=== PATIENT | female | born 1930 | race Caucasian/White ===

== ENCOUNTER 2016-12-16 21:22 | Emergency (ER) | payer OTHER, MEDICARE ==
--- NOTE | 2016-12-16 22:03 | PDOC ---
History of Present Illness - General Stated Complaint: RECTAL BLEED Time Seen by Provider: 12/16/16 21:45 History Source: Patient Exam Limitations: No Limitations - History of Present Illness Initial Comments: CHIEF COMPLAINT: 86 y/o afebrile female with PMH HTN, HLD, hypothyroidism, a- fib (on coumadin and amiodarone), vertigo, hemorrhoids c/o rectal bleeding today. HISTORY OF PRESENT ILLNESS: The patient states she had bleeding from her hemorrhoids yesterday. She called Dr. Caputo today who told her if they started bleeding again she should come to the ER. She states she had 2 bowel movements today during which she had rectal bleeding. She states this evening her bleeding was significant, filling the entire toilet bowl. She states her hemorrhoids have gotten worse. She denies dizziness, lethargy, palpitations, CP , SOB, abd pain, melena. PCP is Jacque Richardson GI is Dr. Caputo Digital Program Manager is Dr. Jones Vital signs on arrival are REVIEW OF SYSTEMS: GENERAL/CONSTITUTIONAL: No fever/chills. No weakness. No weight change. HEAD, EYES, EARS, NOSE AND THROAT: No change in vision. No ear pain or discharge. No sore throat. CARDIOVASCULAR: No chest pain or shortness of breath. RESPIRATORY: No cough, wheezing, or hemoptysis. GASTROINTESTINAL: No abd pain, nausea, vomiting, diarrhea. +external hemorrhoids. +bleeding from hemorrhoids GENITOURINARY: No dysuria, frequency, or change in urination. MUSCULOSKELETAL: No joint or muscle swelling or pain. No neck or back pain. SKIN: No rash or easy bruising. NEUROLOGIC: No headache, vertigo, loss of consciousness, or loss of sensation. PHYSICAL EXAM: GENERAL: The patient is awake, alert, and fully oriented, in no acute distress. She is very well appearing, ambulatory, in NAD or obvious discomfort. HEAD: Normal with no signs of trauma. ENT: Pupils equal, round and reactive to light, extraocular movements intact, sclera anicteric, conjunctiva clear. Neck supple. LUNGS: Clear to auscultation bilaterally. Normal excursion. No respiratory distress or use of accessory muscles. CV: RRR, S1/S2, no MRG. Cap refill < 2 sec. ABDOMEN: Soft, non-distended, non-tender even to deep palpation, no hepatomegaly or splenomegaly, no masses. RECTUM: prolapsed internal hemorrhoids that are not strangulated. One of the hemorrhoids was able to be reduced. The others were unable to be reduced with manual pressure. No active bleeding. EXTREMITIES: Normal range of motion, no edema. NEUROLOGICAL: Normal speech, normal gait. CN II-XII grossly intact. PSYCH: Normal mood, normal affect. SKIN: Warm, dry, normal turgor, no rashes or lesions noted. Past History - Past Medical History Allergies/Adverse Reactions: Allergies Allergy/AdvReac Type Severity Reaction Status Date / Time erythromycin base Allergy Unknown abdominal Verified 10/31/16 20:51 [Erythromycin Base] pain Home Medications: Ambulatory Orders Atenolol [Tenormin -] 100 mg PO DAILY #0 tablet 11/01/13 Cholecalciferol (Vitamin D3) [Vitamin D -] 1 tab PO DAILY 05/24/14 Amlodipine Besylate [Norvasc -] 5 mg PO DAILY 03/12/15 Levothyroxine [Synthroid -] 50 mcg PO ASDIR 10/31/16 Warfarin Na [Coumadin -] 1 mg PO DAILY@1800 1 Days NS 11/10/16 Amiodarone HCl 200 mg PO 12/16/16 Latanoprost 0.005% Eye Drops [Xalatan 0.005% Eye Drops -] 1 drop HS 12/16/16 Losartan Potassium [Cozaar -] 50 mg PO DAILY 12/16/16 Simvastatin 20 mg PO 12/16/16 Anemia: No Asthma: No Cancer: No Cardiac Disorders: Yes (afib; CARDIAC CATH; SYNCOPE) COPD: No CHF: No GI Disorders: Yes (DIVERTICULITIS; SBO; ISCHEMIC COLITIS) Disorders: Yes (BLADDER INFECTION) HTN: Yes Hypercholesterolemia: Yes Suicide Attempt (Hx): No Thyroid Disease: Yes (HYPO) - Surgical History Abdominal Surgery: No Appendectomy: Yes Cardiac Surgery: Yes (pacemaker x2) Cholecystectomy: Yes Lung Surgery: No Neurologic Surgery: No - Immunization History Immunization Up to Date: Yes - Psycho/Social/Smoking Cessation Hx Anxiety: No Suicidal Ideation: No Smoking Status: No Smoking History: Never smoked Have you smoked in the past 12 months: No Number of Cigarettes Smoked Daily: 0 Hx Alcohol Use: No Drug/Substance Use Hx: No Substance Use Type: None Hx Substance Use Treatment: No ED Treatment Course - LABORATORY CBC & Chemistry Diagram: 12/16/16 22:31 12/16/16 22:31 Medical Decision Making - Medical Decision Making A/P: 86 y/o female with bleeding hemorrhoids. Bleeding has stopped. Plan is as follows: 1. Labs 2. Stool occult Labs normal Occult stool negative Manually reduced one of the prolapsed hemorrhoids. Will discharge the patient to home. She does not wish to have suppositories because she has no pain and she doesn't want to restart the bleeding. She states she will call Dr. Caputo tomorrow. Instructed her to return to the ER with any worsening or concerning symptoms. The patient verbalizes understanding of all instructions, has no further questions and is awaiting discharge. *DC/Admit/Observation/Transfer Diagnosis at time of Disposition: Bleeding hemorrhoids - Discharge Dispostion Disposition: HOME Condition at time of disposition: Good - Referrals Referrals: Jacque Richardson [Primary Care Provider] - Call tomorrow Minh Caputo MD [Staff Physician] - Call tomorrow - Patient Instructions Printed Discharge Instructions: DI for Hemorrhoids Additional Instructions: Discharge Instructions: -Continue taking your daily Miralax -Call Dr. Caputo and Dr. Richardson tomorrow -Return to the ER with any worsening or concerning symptoms.
--- NOTE | 2016-12-16 22:04 | PDOC ---
[id number]4GlNWAROHKTDLASWF4WMXCDyLYRCq7fWHPKtfeKVYOPrX RsZQAAeJwFwesKQDAUAO Ttlk4Lbob4BAE6ZAk0CQ0psyNjor/35Rn2/ tFa1AT8GundhEEmskCc7sJEaealx2Z4a2lgl6Pp9wpW910j5zRZ6hHJegNZLP0KZGOWAOSKUQEOg/ 256x5Y4iGYuKOOABF1MNa4D20jiNmmtiYCFLmp71zRWN/ YW2oDthTnoWEiNUM82gIJXXlVG1sDJM6JGRKXBEISILfh7PwbbeZuHALX6t3/ A8NEgWfIB2QR9FJcjgiEhOzA75rp7bmFpRBOuisaHMzUO3vEkHb978g2lkAlZhBAplBJ2UzHlvx6KdWJ KSzwEfIB4DkMDEcFW2IGzTSq1Qmr9UsyCCXoX8RwyAGTIRcU6MmHGwonZgR3QNXTwjDtjTx +zZF574Y/ 8VHkSvPv6YszC2zwsuTQ1vLwUhVts8M7pyDxab8POvSELgKyglmxLgIDNQ3ylQomKTBX9AwpdfFchbn0 DKPofBLGI4ftM83v9tX4CwsAZN7f2eX71QZbbu5sQq0iQAv4 /Lz3LzqdEwW2qbh1s9lfjDBeF6DHufM4s/ C3qfjQEXCNEpZAeylwvj3i2XgmTvWIdbtzvmpsuudRTJKkH+GQkKbgSQLkbBIsWJC293WUjjUpxk/ c1DVLW7X78j6CME7JIEvN97B9pfEW2Fch54WIYEj9d5u+JNqPHXR5U4lwldbWtwLMabs2FwWlIunkSh/ kIIdrEy1TW8JMvyXVjbZSlqxE2eu2foQc6vBng0Syxjfq819Zwb1iBcPE/W+ zKbPwjx95g42ayWNvfZD2e5LcYvY0KiU6W+ 6p9xTO6cm5BFuTw85icYcPHLAx9UWqireFQk6P3f4roQPj8FTqbR9/oQdXYAbt1o8+VQCni5l+ pQ2PMtrDFD9k4A7I2wLbYxJkl8byvB5JNDHAFH2WxpRrDaR8dLqdsrMatSJSvvrBLQnDZIBcENSMPOdE 8Dy5cytkGTypw +iUYm8MS0M8FfQ2IBRfAWUWVLqURlWcFvUQ 12/16/16 22:31 Medical Decision Making - Medical Decision Making 12/16/16 22:03 agree with care from JANETT Soler *DC/Admit/Observation/Transfer Diagnosis at time of Disposition: Bleeding hemorrhoids - Discharge Dispostion Disposition: HOME Condition at time of disposition: Good - Referrals Referrals: Jacque Richardson [Primary Care Provider] - Call tomorrow Minh Caputo MD [Staff Physician] - Call tomorrow - Patient Instructions Printed Discharge Instructions: DI for Hemorrhoids Additional Instructions: Discharge Instructions: -Continue taking your daily Miralax -Call Dr. Caputo and Dr. Richardson tomorrow -Return to the ER with any worsening or concerning symptoms.
[2016-12-16 22:41] VITALS: BP 113/79; PULSE 82; TEMP 97.2; BMI 25.0
[2016-12-16 22:48] LABS: BASOPHIL 0.8 % (0-2.0); EOSINOPHIL 2.9 % (0-4.5); MCH 32.1 pg (25.7-33.7); MCHC 33.3 g/dl (32.0-36.0); MEAN CELL VOLUME 96.1 fl (80-96); MEAN PLT VOLUME 8.8 fl (7.5-11.1); NEUTROPHILS 68.4 % (42.8-82.8); PLATELET COUNT 230 K/MM3 (134-434); RDW 15.2 % (11.6-15.6); WHITE BLOOD COUNT 5.7 K/mm3 (4.0-10.0)
[2016-12-16 23:09] LABS: INR 2.13 (0.82-1.09); PROTHROMBIN TIME (PATIENT) 23.8 SEC (9.98-11.88)
[2016-12-16 23:12] LABS: ALBUMIN 2.9 g/dl (3.4-5.0); BILIRUBIN,TOTAL 0.3 mg/dL (0.2-1.0); CREATININE 0.9 mg/dL (0.55-1.02); TOT PROT 7.3 g/dl (6.4-8.2)
== END 2016-12-17 00:24 | disposition home or self-care (01) ==
LOC: JER 21:22
DX: K64.2 Third degree hemorrhoids (principal); I10 Essential (primary) hypertension; E78.00 Pure hypercholesterolemia, unspecified; E03.9 Hypothyroidism, unspecified; I48.91 Unspecified atrial fibrillation; Z79.01 Long term (current) use of anticoagulants; Z95.0 Presence of cardiac pacemaker
CPT/HCPCS: 36415; 80053; 82272; 85025; 85610; 86850; 86900; 86901; 99281-25

== ENCOUNTER 2017-02-03 18:14 | Emergency (ER) | payer OTHER ==
--- NOTE | 2017-02-03 18:18 | PDOC ---
Rapid Medical Evaluation Time Seen by Provider: 02/03/17 18:18 Medical Evaluation: Allergies Allergy/AdvReac Type Severity Reaction Status Date / Time erythromycin base Allergy Unknown abdominal Verified 10/31/16 20:51 [Erythromycin Base] pain 02/03/17 18:18 86 year old female with history of hemorrhoids (sees Dr. Caputo) presenting with heavy bright red bleeding since 4pm. History of Afib on Coumadin. No dizziness, lightheadedness, shortness of breath. -V/s notable for HR 110 -EKG -Labs including CBC, comp, PT/INR, T&S -To Main ED for further evaluation
[2017-02-03 18:22] VITALS: BP 157/99; TEMP 97.8; BMI 25.2
[2017-02-03 19:26] LABS: BASOPHIL 1.3 % (0-2.0); EOSINOPHIL 5.2 % (0-4.5); MCH 32.4 pg (25.7-33.7); MCHC 33.9 g/dl (32.0-36.0); MEAN CELL VOLUME 95.8 fl (80-96); NEUTROPHILS 63.2 % (42.8-82.8); PLATELET COUNT 220 K/MM3 (134-434); RDW 14.7 % (11.6-15.6)
[2017-02-03 19:42] LABS: INR 2.16 (0.82-1.09); PROTHROMBIN TIME (PATIENT) 24.1 SEC (9.98-11.88)
[2017-02-03 19:45] LABS: ALBUMIN 3.2 g/dl (3.4-5.0); ANION GAP 8 (8-16); CALCIUM 9.1 mg/dL (8.5-10.1); CO2 27 mmol/L (21-32); CREATININE 0.9 mg/dL (0.55-1.02); GLUCOSE,RANDOM 110 mg/dL (74-106); SGOT/AST 20 U/L (15-37); SGPT/ALT 21 U/L (12-78)
[2017-02-03 19:49] LABS: ALK PHOS 124 U/L (45-117); BILIRUBIN,TOTAL 0.4 mg/dL (0.2-1.0); TOT PROT 8.3 g/dl (6.4-8.2); TROPONIN I < 0.02 ng/ml (0.00-0.05)
--- NOTE | 2017-02-03 20:20 | PDOC ---
History of Present Illness - General Chief Complaint: Rectal Bleed Stated Complaint: RECTAL BLEED Time Seen by Provider: 02/03/17 18:18 History Source: Patient Exam Limitations: No Limitations - History of Present Illness Travel History: No Initial Comments: 02/03/17 20:14 86yo Female patient w/ PmHx: Afib, Pacemaker, Hemorrhoids presents to ED c/o bleeding rectally r/t hemorrhoids. Patient states symptoms began around 4pm, she took 2 sitz bath with no relief of symptoms. Patient reports she currently takes Coumadin with alternating doses during the week. Patient denies CP, Abd pain, back pain, n/v/d, fever, cough, congestion, lightheadedness, dizziness, SOB, diff breathing, confusion, disorientation, rectal pain or any other complaints at this time. GI- Dr. Caputo. Timing/Duration: reports: constant Quality: reports: moderate Abdominal Pain Onset Location: denies: RUQ, LUQ, RLQ, LLQ, epigastric, periumbilical, suprapubic, generalized abdomen, flank, unknown, other Pain Radiation: denies: no radiation, RUQ, LUQ, RLQ, LLQ, epigastric, periumbilical, flank, groin, scapula, shoulder, chest, back, other Activities at Onset: reports: no specific activity Treatment Prior to Arrive: improves with: other (Sitz Bath) Aggravating Factors: worse with: None, Defecation, Eating, Emotional upset, Exertion, [place], Movement, Voiding, Change in position Alleviating Factors: worse with: None, Belching, Shallow Breathing, Defecation, Eating, Holding Breath, Passing Gas, Change in Position, Rest, Voiding, Vomiting Past History - Travel Traveled outside of the country in the last 30 days: No Close contact w/someone who was outside of country & ill: No - Past Medical History Allergies/Adverse Reactions: Allergies Allergy/AdvReac Type Severity Reaction Status Date / Time erythromycin base Allergy Unknown abdominal Verified 02/03/17 18:22 [Erythromycin Base] pain Home Medications: Ambulatory Orders Atenolol [Tenormin -] 100 mg PO DAILY #0 tablet 11/01/13 Cholecalciferol (Vitamin D3) [Vitamin D -] 1 tab PO DAILY 05/24/14 Amlodipine Besylate [Norvasc -] 5 mg PO DAILY 03/12/15 Levothyroxine [Synthroid -] 50 mcg PO ASDIR 10/31/16 Warfarin Na [Coumadin -] 1 mg PO DAILY@1800 1 Days NS 11/10/16 Amiodarone HCl 200 mg PO HS 12/16/16 Latanoprost 0.005% Eye Drops [Xalatan 0.005% Eye Drops -] 1 drop HS 12/16/16 Losartan Potassium [Cozaar -] 50 mg PO DAILY 12/16/16 Simvastatin 20 mg PO DAILY 12/16/16 Anemia: No Asthma: No Cancer: No Cardiac Disorders: Yes (afib; CARDIAC CATH; SYNCOPE) COPD: No CHF: No GI Disorders: Yes (DIVERTICULITIS; SBO; ISCHEMIC COLITIS) Disorders: Yes (BLADDER INFECTION) HTN: Yes Hypercholesterolemia: Yes Suicide Attempt (Hx): No Thyroid Disease: Yes (HYPO) - Surgical History Abdominal Surgery: No Appendectomy: Yes Cardiac Surgery: Yes (pacemaker x2) Cholecystectomy: Yes Lung Surgery: No Neurologic Surgery: No - Immunization History Immunization Up to Date: Yes - Psycho/Social/Smoking Cessation Hx Anxiety: No Suicidal Ideation: No Smoking Status: No Smoking History: Never smoked Have you smoked in the past 12 months: No Number of Cigarettes Smoked Daily: 0 Information on smoking cessation initiated: No Hx Alcohol Use: No Drug/Substance Use Hx: No Substance Use Type: None Hx Substance Use Treatment: No Abd/GI Specific PMHX - Complaint Specific PMHX Colitis: No Diverticulitis: No Gall Bladder Disease: No GERD: No Hepatitis: No Irritable Bowel Synd (IBS): No Pancreatitis: No GI Ulcer Disease: No Review of Systems - Review of Systems Able to Perform ROS?: Yes Is the patient limited Urdu proficient: No Constitutional: No: Chills, Fever, Malaise, Weakness HEENTM: No: Blurred Vision, Double Vision, Nose Bleeding Respiratory: No: Cough, Shortness of Breath, Stridor Cardiac (ROS): No: Chest Pain, Irregular Heart Rate, Lightheadedness, Palpitations, Syncope, Chest Tightness ABD/GI: Yes: Rectal Bleeding. No: Abd. Pain w/ defecation, Blood Streaked Bowels, Diarrhea, Nausea, Vomiting, Abdominal cramping, Tarry Stools : No: Dysuria, Flank Pain, Hematuria Musculoskeletal: No: Back Pain, Muscle Weakness Integumentary: No: Bruising, Erythema, Flushing, Pallor, Rash, Sweating Neurological: No: Headache, Numbness, Paresthesia, Seizure, Tremors, Weakness, Ataxia, Dizziness All Other Systems: Reviewed and Negative *Physical Exam - Vital Signs Last Vital Signs Temp Pulse Resp BP Pulse Ox 97.8 F 111 H 18 157/99 97 02/03/17 18:18 02/03/17 18:18 02/03/17 18:18 02/03/17 18:18 02/03/17 18:18 - Physical Exam General Appearance: Yes: Nourished, Appropriately Dressed. No: Apparent Distress, Mild Distress, Moderate Distress, Severe Distress Neck: positive: Trachea midline, Supple. negative: Stridor, Lymphadenopathy (R) , Lymphadenopathy (L) Respiratory/Chest: positive: Lungs Clear, Decreased Breath Sounds. negative: Crackles, Rales, Rhonchi, Stridor, Wheezing Cardiovascular: positive: Regular Rhythm, Regular Rate, Diastolic Murmur Gastrointestinal/Abdominal: positive: Normal Bowel Sounds, Soft. negative: Distended, Guarding, Rebound, Tenderness Rectal Exam: positive: normal rectal tone, hemorrhoids (Many external w/ internal present on examination. No thrombosed hemorrhoids noted.) Musculoskeletal: positive: Normal Inspection. negative: CVA Tenderness Extremity: positive: Normal Capillary Refill, Normal Inspection, Normal Range of Motion Integumentary: positive: Normal Color, Dry, Warm Neurologic: positive: delicatessen slicer II-XII NML intact, Fully Oriented, Alert, Normal Mood/ Affect, Normal Response, Motor Strength 5/5 ED Treatment Course - LABORATORY CBC & Chemistry Diagram: 02/03/17 18:49 02/03/17 18:49 - ADDITIONAL ORDERS Additional order review: Laboratory Results 02/03/17 02/03/17 18:49 18:49 INR 2.16 H Sodium 140 Potassium 4.3 Chloride 105 Carbon Dioxide 27 Anion Gap 8 BUN 18 Creatinine 0.9 Creat Clearance w eGFR 59.23 Random Glucose 110 H Calcium 9.1 Total Bilirubin 0.4 D AST 20 D ALT 21 D Alkaline Phosphatase 124 H D Creatine Kinase 43 Troponin I < 0.02 Total Protein 8.3 H Albumin 3.2 L 02/03/17 18:49 RBC 4.01 MCV 95.8 MCHC 33.9 RDW 14.7 MPV 9.0 Neutrophils % 63.2 Lymphocytes % 17.6 Monocytes % 12.7 H Eosinophils % 5.2 H Basophils % 1.3 Progress Note - Progress Note Progress Note: Re-evaluated patient. No bleeding at this time. INR- 2.16 Troponin <0.02 H&H- 13/38.4 Medical Decision Making - Medical Decision Making 02/03/17 20:25 CBC, INR, Type & Screen, CMP, Troponin, EKG. If all neg and no bleeding, d/c to home w/ f/u surgical referral. *DC/Admit/Observation/Transfer Diagnosis at time of Disposition: Hemorrhoids Qualifiers: Hemorrhoid type: unspecified Qualified Code(s): K64.9 - Unspecified hemorrhoids - Discharge Dispostion Disposition: HOME Condition at time of disposition: Improved Admit: No - Referrals Referrals: Jacque Richardson [Primary Care Provider] - Minh Caputo MD [Staff Physician] - - Patient Instructions Printed Discharge Instructions: DI for Hemorrhoids, DI for Rectal Bleeding Additional Instructions: Follow up with Dr. Caputo (GI) as discussed. Call to schedule appointment. You will need a surgical consult. Return if your symptoms worsen, or any concerns for further evaluation. Follow up as soon as possible. Print Language: PALESTINIAN
[2017-02-03 21:27] VITALS: PULSE 78
--- NOTE | 2017-02-04 10:05 | EKG ---
Test Reason : Blood Pressure : / mmHG Vent. Rate : 068 BPM Atrial Rate : 067 BPM P-R Int : 000 ms QRS Dur : 106 ms QT Int : 422 ms P-R-T Axes : 000 -21 048 degrees QTc Int : 448 ms POOR DATA QUALITY, INTERPRETATION MAY BE ADVERSELY AFFECTED atrial-paced complexes ABNORMAL ECG Confirmed by DEBORAH MCBRIDE MD ([id number]) on 02/04/2017 10:04:47 AM Referred By: Confirmed By:DEBORAH MCBRIDE MD
== END 2017-02-03 21:26 | disposition home or self-care (01) ==
LOC: JER 18:14
DX: K64.9 Unspecified hemorrhoids (principal); I25.10 Atherosclerotic heart disease of native coronary artery without angina pectoris; Z98.61 Coronary angioplasty status; I10 Essential (primary) hypertension; I48.91 Unspecified atrial fibrillation; Z79.01 Long term (current) use of anticoagulants; E03.9 Hypothyroidism, unspecified; E78.00 Pure hypercholesterolemia, unspecified; Z95.0 Presence of cardiac pacemaker
CPT/HCPCS: 36415; 80053; 82550; 84484; 85025; 85610; 86850; 86900; 86901; 93005; 93010; 99283-25

== ENCOUNTER 2017-03-16 05:16 | Day surgery (SDC) | payer OTHER, MEDICARE ==
--- NOTE | 2017-02-28 11:44 | HP ---
DATE OF ADMISSION: 03/16/2017 DATE OF DICTATION: 02/22/2017 DATE OF SURGERY: 03/16/2017 BRIEF HISTORY: This is an 86-year-old female who presented with a history of episodic rectal bleeding. Patient states she had bloody bowel movements. The blood at times would be very heavy (large amount of blood within the toilet bowl and sometimes on the bathroom floor). During these heavy episodes, patient has had no history of lightheadedness, syncope, chest pain, or shortness of breath. She was evaluated in the emergency room most recently with the very heavy episode and noted to have a normal hemoglobin according to the patient. She is also under the care of Dr. Caputo for the hemorrhoids, she has undergone a colonoscopy in the past 2-3 years; those results are not available to me. Patient denies a history of weight loss, no history of thinning stools. PAST MEDICAL HISTORY: Significant for peptic ulcer disease, heart disease, atrial fibrillation, hypertension, kidney disease, arthritic changes, eye disease, thyroid issues. PAST SURGICAL HISTORY: Appendectomy. Cholecystectomy. hysterectomy. Tonsillectomy. Heart and pacemaker. MEDICATION: Patient is on Coumadin, amiodarone, losartan, amlodipine, atenolol, simvastatin, Synthroid, and aspirin and Miralax. SOCIAL HISTORY: She denies tobacco and alcohol use. PHYSICAL EXAMINATION: Patient examined in the left lateral decubitus position. She has a hemorrhoid that prolapses at the 6:30 to 7:00 o'clock position. 12 o'clock is at the sacrum in the left lateral decubitus position. Internal examination is markedly decreased tone. She was guaiac negative. She has mild hemorrhoid disease throughout. IMPRESSION/PLAN: Episodic rectal bleeding based on the negative colonoscopy from 2-3 years ago, this most likely is secondary to her hemorrhoids. Patient states that when she wipes if she is not extremely careful, she causes bleeding. I suspect this most likely is the hemorrhoid at the 6:30 to 7:30 position. I will plan to do a limited hemorrhoidectomy at this level in hopes of controlling her bleeding. Due to the patient's medical issues and her age, I will plan to do this surgery while she is still anticoagulated; however, would like to see an INR between 1.7 and under 2. The patient understands we are doing a hemorrhoidectomy, it is extremely bloody surgery, and leaving her on Coumadin presents significant risks; however, her cardiac risk and other medical issues outweigh the surgical risk, and therefore she is willing to accept this and the possible complications. We will plan to proceed with exam under anesthesia, hemorrhoidectomy. Amanda RICHEY [id number] cc: Ruddy Marie D.O. cc: Jacque Richardson M.D.
[2017-03-15 08:43] VITALS: BMI 25.3
[2017-03-16 10:11] LABS: INR 1.52 (0.82-1.09); PROTHROMBIN TIME (PATIENT) 16.9 SEC (9.98-11.88)
[2017-03-16] MEDS ORDERED: ceFAZolin SODIUM 1 GM VIAL ONE (10:42)
[2017-03-16] MEDS ORDERED: ceFAZolin SODIUM 1 GM VIAL IVPB ONE (11:29)
[2017-03-16] MEDS ORDERED: LIDOCAINE 1%/EPI 1:100000 (50 ML MULTI DOSE VIAL) ONE (11:56)
[2017-03-16] MEDS ORDERED: LIDOCAINE 1%/EPI 1:100000 (50 ML MULTI DOSE VIAL) INF ONE ×2 (12:00)
[2017-03-16 14:38] VITALS: TEMP 98
[2017-03-16 16:47] VITALS: BP 130/76; PULSE 80
--- NOTE | 2017-03-17 13:29 | OP ---
DATE OF OPERATION: 03/16/2017 PREOPERATIVE DIAGNOSIS: Episodic rectal bleeding. POSTOPERATIVE DIAGNOSIS: Episodic rectal bleeding. PROCEDURE: Examination under anesthesia, anal dilatation, hemorrhoidectomy x2. SURGEON: Chris Epperson MD SENIOR BUSINESS PROCESS ANALYST: None. ANESTHESIA: Chantell Beal MD (MAC/1% lidocaine with epinephrine, approximately 15 mL). ESTIMATED BLOOD LOSS: Minimal. SPECIMEN: Hemorrhoids x2. Patient's preoperative comorbidities include severe aortic stenosis, coronary artery disease, hypertension, hypothyroidism, chronic anticoagulation. This is an 86-year-old female with episodic rectal bleeding. Due to her Coumadin and anticoagulation, the patient occasionally has a severe amount of bleeding; therefore, wished to have this addressed at this time. Patient identified and appropriately positioned on the operating room table. After undergoing IV sedation, the area prepped and draped in the usual sterile fashion with ChloraPrep; 1% lidocaine with epinephrine was used for local anesthesia, approximately 15 mL. This was done in the perianal area as well as intersphinctericly. The anus was then serially dilated up to approximately 3 fingerbreadths. Anoscope was placed. In the left anterior position was a prolapsed hemorrhoid that was very friable in appearance. Just next to this, going toward the 8 o'clock position, is a very friable-appearing hemorrhoid and one also at the 10. The prolapsed hemorrhoid was excised with the LigaSure device. Welds were placed prior to complete division. This was handed off as specimen as hemorrhoid. The other one at the 10 o'clock position was excised in a similar fashion. This was also handed off as specimen. The friable hemorrhoid at the 8 o'clock position was just cauterized and then oversewn. The anus was then serially irrigated. The operative field examined, noted to be hemostatic. Next, 4 x 4's placed. Patient tolerated the procedure well. At the conclusion of the case, sponge and needle counts were correct. ATTESTATION: A brief operative note handwritten on the preprinted form. [facility] will be queried prior to giving any narcotics. Amanda RICHEY [id number] cc: DO Murray Fisher MD [facility]
--- NOTE | 2017-03-18 17:06 | PATH ---
Surgical Pathology Report Patient Name: SHAUN KING [facility]. Rec. #: [id number] /Age/Gender: 1930 (Age: 86) / F Account: [id number] Location: [facility] SUR[facility]ICAL Taken: 03/16/2017 Received: 03/16/2017 Reported: 03/18/2017 Physicians: Chris Epperson Specimen(s) Received HEMORRHOIDS Clinical History Rectal bleeding, hemorrhoids Final Diagnosis HEMORRHOIDS, HEMORRHOIDECTOMY: ANORECTAL MUCOSA WITH VASCULAR CONGESTION AND ECTASIA CONSISTENT WITH HEMORRHOIDS. Electronically Signed Alberto Fox M.D. Gross Description Received in formalin labeled "hemorrhoids," are 2 pink-downing, irregular portions of soft tissue measuring 1.6 x 0.6 x 0.3 cm and 2.2 x 0.9 x 0.3 cm. The specimens are serially sectioned and entirely submitted in one cassette. /03/16/201703/16/2017
== END 2017-03-16 15:30 | disposition home or self-care (01) ==
LOC: JASU-SURG 05:16
PROVIDERS: ATTEND Surgery
PROC: 06BY0ZC Excision of Hemorrhoidal Plexus, Open Approach (ICD-10-PCS; principal; 2017-03-16 11:00)
DX: K64.8 Other hemorrhoids (principal); K62.5 Hemorrhage of anus and rectum; I35.0 Nonrheumatic aortic (valve) stenosis; I25.10 Atherosclerotic heart disease of native coronary artery without angina pectoris; I10 Essential (primary) hypertension; E03.9 Hypothyroidism, unspecified; Z79.01 Long term (current) use of anticoagulants
CPT/HCPCS: 36415; 85610; 88304-TC; 94760

== ENCOUNTER 2017-03-24 12:23 | Observation (INO) | payer OTHER, MEDICARE ==
--- NOTE | 2017-03-24 14:57 | PDOC ---
History of Present Illness - General Chief Complaint: Chest Pain Stated Complaint: CHEST PAIN Time Seen by Provider: 03/24/17 14:37 - History of Present Illness Initial Comments: 03/24/17 14:52 86-year-old female with a past medical history of atrial fibrillation, pacemaker , ASHD, pneumonia, prior cholecystectomy, recent gallstone ileus, recent hemorrhoid surgery, and a prior cardiac catheterization-patient does not know if she has stents She is on Coumadin at this time, and her INR on Tuesday was 2.6 Patient is complaining of an episode of upper midepigastric abdominal pain radiating into her chest on Tuesday night, associated with sweats, nausea, and vomiting, which resolved spontaneously She states yesterday at 7:30 PM, she had another episode of the same, again which resolved spontaneously, but she was not sure how long last night's episode lasted for She states in some ways the pain feels similar to her gallstone ileus pain, although it has resolved at this time, and she has not had any episodes since 7: 30 last night She denies any neck jaw or arm radiation She denies any palpitations She denies any recent intercurrent illnesses, cough, sputum, fevers or chills, or any other complaints She states she is asymptomatic at this time, and the remainder of the review of systems is negative Skate Shop Attendant is Dr. Loomis Primary care physician is Dr. Jaqueline Rader Past History - Past Medical History Allergies/Adverse Reactions: Allergies Allergy/AdvReac Type Severity Reaction Status Date / Time erythromycin base Allergy Unknown abdominal Verified 03/24/17 12:38 [Erythromycin Base] pain Home Medications: Ambulatory Orders Levothyroxine [Synthroid -] 50 mcg PO ASDIR 10/31/16 Warfarin Na [Coumadin -] 1 mg PO DAILY@1800 1 Days NS 11/10/16 Latanoprost 0.005% Eye Drops [Xalatan 0.005% Eye Drops -] 1 drop HS 12/16/16 Losartan Potassium [Cozaar -] 50 mg PO DAILY 12/16/16 Simvastatin 20 mg PO DAILY 12/16/16 Amlodipine Besylate 5 mg PO DAILY 03/15/17 Aspirin Coated [Ecotrin -] 81 mg PO DAILY 03/15/17 Atenolol [Tenormin -] 100 mg PO HS 03/15/17 Polyethylene Glycol 3350 [Miralax 119 gm Btl -] 17 gm PO DAILY 03/15/17 Ascorbic Acid [Vitamin C] 500 mg PO DAILY 03/24/17 Cholecalciferol (Vitamin D3) [Vitamin D -] 400 unit PO DAILY 03/24/17 Methenamine Hippurate [Hiprex [Nf] -] 2 gm PO BID 03/24/17 Ursodiol [Actigal -] 300 mg PO BID #60 cap 03/26/17 Anemia: No Asthma: No Cancer: No Cardiac Disorders: Yes (PACEMAKER X 1) COPD: No CHF: No GI Disorders: Yes (GALLSTONES EVEN THOUGH SHE HAD GALLBLADDER REMOVED) Disorders: Yes (BLADDER INFECTION) HTN: Yes Hypercholesterolemia: Yes Suicide Attempt (Hx): No Thyroid Disease: Yes (HYPO) - Surgical History Abdominal Surgery: (SLIT IN GALLBLADDDER DUCT, HEMMORHOID REMOVED) Appendectomy: Yes Cardiac Surgery: Yes (PACEMAKER X2) Cholecystectomy: Yes Lung Surgery: No Neurologic Surgery: No - Immunization History Immunization Up to Date: Yes - Psycho/Social/Smoking Cessation Hx Anxiety: No Suicidal Ideation: No Smoking Status: No Smoking History: Former smoker Have you smoked in the past 12 months: No Number of Cigarettes Smoked Daily: 0 Information on smoking cessation initiated: No Hx Alcohol Use: No Drug/Substance Use Hx: No Substance Use Type: None Hx Substance Use Treatment: No *Physical Exam - Vital Signs Last Vital Signs Temp Pulse Resp BP Pulse Ox 97.4 F L 73 18 128/76 98 03/24/17 12:25 03/24/17 12:25 03/24/17 12:25 03/24/17 12:25 03/24/17 13:30 - Physical Exam Comments: 03/24/17 14:55 Physical exam Last Vital Signs Temp Pulse Resp BP Pulse Ox 97.4 F L 73 18 128/76 98 03/24/17 12:25 03/24/17 12:25 03/24/17 12:25 03/24/17 12:25 03/24/17 13:30 GENERAL: The patient is awake, alert, and fully oriented, and in no apparent distress. HEAD: Normal with no signs of trauma. EYES: sclera anicteric, conjunctiva are normal. ENT: Moist mucous membranes. NECK: Normal range of motion, supple LUNGS: Breath sounds equal, clear to auscultation bilaterally. No wheezes, and no crackles. HEART: Regular rate and rhythm, normal S1 and S2 without murmur, rub or gallop. ABDOMEN: Soft, nontender, normoactive bowel sounds. No guarding, no rebound. No masses appreciated. Abdomen is soft and nontender at this time EXTREMITIES: Normal range of motion, no edema. No clubbing or cyanosis. No cords, erythema, or tenderness. NEUROLOGICAL: Cranial nerves II through XII grossly intact. Normal speech, normal gait. PSYCH: Normal mood, normal affect. SKIN: Warm, Dry, normal turgor, no rashes or lesions noted. ED Treatment Course - LABORATORY CBC & Chemistry Diagram: 03/26/17 05:40 03/26/17 05:40 - RADIOLOGY Radiology Studies Ordered: Category Date Time Status CHEST X-RAY PORTABLE* [RAD] Stat Radiology 03/24/17 14:51 Ordered Medical Decision Making - Medical Decision Making 03/24/17 14:56 EKG Normal sinus rhythm 70, left axis deviation -29 Normal AV and IV conduction time Normal QTC No pacemaker spikes are seen Otherwise normal EKG When compared to the EKG of 02/03/17 Atrial pacer spikes were seen on the prior EKG 03/24/17 16:39 First set of cardiac enzymes negative labwork reviewed 03/24/17 16:39 Chest x-ray-NAD 03/24/17 17:[address] Loomis cardiology-will see patient in consultation May be GI type of pain, but with patient's cardiac history, will need serial enzymes to rule out chest pain of cardiac etiology Dr. Rader paged 03/24/17 17:19 Case and all results discussed with Dr. Ariella Muniz-will place in observation Ct scan abd/pelv - s/p cholecystectomy. CT reveals persistently dilated intra- and extrahepatic bile ducts and pneumobilia. *DC/Admit/Observation/Transfer Diagnosis at time of Disposition: Chest pain Qualifiers: Chest pain type: unspecified Qualified Code(s): R07.9 - Chest pain, unspecified - Discharge Dispostion Condition at time of disposition: Fair Admit: Yes - Prescriptions
[2017-03-24 15:46] LABS: TROPONIN I < 0.02 ng/ml (0.00-0.05)
[2017-03-24 16:25] LABS: INR 2.53 (0.82-1.09); PROTHROMBIN TIME (PATIENT) 28.4 SEC (9.98-11.88)
[2017-03-24 17:09] LABS: ALBUMIN 3.2 g/dl (3.4-5.0); ALK PHOS 129 U/L (45-117); ANION GAP 8 (8-16); BILIRUBIN,TOTAL 0.5 mg/dL (0.2-1.0); CALCIUM 9.6 mg/dL (8.5-10.1); CO2 28 mmol/L (21-32); CREATININE 0.8 mg/dL (0.55-1.02); GLUCOSE,RANDOM 92 mg/dL (74-106); MAGNESIUM 2.3 mg/dL (1.8-2.4); SGOT/AST 24 U/L (15-37); SGPT/ALT 21 U/L (12-78); TOT PROT 7.6 g/dl (6.4-8.2)
[2017-03-24 17:12] LABS: MCHC 33.4 g/dl (32.0-36.0); MEAN CELL VOLUME 95.7 fl (80-96); MEAN PLT VOLUME 9.2 fl (7.5-11.1); PLATELET COUNT 200 K/MM3 (134-434); RDW 14.3 % (11.6-15.6); WHITE BLOOD COUNT 4.7 K/mm3 (4.0-10.0)
--- NOTE | 2017-03-24 19:02 | CON.CARD ---
Consult Consult Specialty:: Cardiology Referred by:: Jacque Richardson MD Reason for Consultation:: Chest pain - History of Present Illness Chief Complaint: Chest pain History of Present Illness: 86-year-old female history of 2 vesseal CAD, diastolic dysfunction, moderate aortic stenosis, hypertension, cardioinhibitory/carotid hypersensitivity s/p pacemaker, hyperlipidemia, paroxysmal A.fib on Coumadin [id number], s/p appy, cholecystectomy and hysterectomy, diverticulosis/itis, GERD presented with sharp chest and mid-epigastric pain, improved with belching and emesis. She denies dyspnea, near or true syncope, palpitations, orthopnea, PND or LE edema, feels hungry, wants to eat. - History Source History Provided By: Patient Limitations to Obtaining History: No Limitations - Past Medical History Cardio/Vascular: Yes: AFIB, HTN, Hyperlipdemia Gastrointestinal: Yes: Diverticulitis, Hemorrhoids Musculoskeletal: Yes: Chronic low back pain, Other (Spinal stenosis and C spine fracture.) Endocrine: Yes: Hypothyroidism Additional Medical History: Fibrocystic breast disease. Macular degeneration. Herpes Zoster 2008. Ischemic colitis and SBO 2012. Diverticulitis 02/21. C spine fracture. Spinal stenosis. 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 History of Recent Travel: No Home Medications - Allergies Allergies/Adverse Reactions: Allergies Allergy/AdvReac Type Severity Reaction Status Date / Time erythromycin base Allergy Unknown abdominal Verified 03/24/17 12:38 [Erythromycin Base] pain - Home Medications Home Medications: Ambulatory Orders Levothyroxine [Synthroid -] 50 mcg PO ASDIR 10/31/16 Warfarin Na [Coumadin -] 1 mg PO DAILY@1800 1 Days NS 11/10/16 Latanoprost 0.005% Eye Drops [Xalatan 0.005% Eye Drops -] 1 drop HS 12/16/16 Losartan Potassium [Cozaar -] 50 mg PO DAILY 12/16/16 Simvastatin 20 mg PO DAILY 12/16/16 Amlodipine Besylate 5 mg PO DAILY 03/15/17 Aspirin Coated [Ecotrin -] 81 mg PO DAILY 03/15/17 Atenolol [Tenormin -] 100 mg PO HS 03/15/17 Polyethylene Glycol 3350 [Miralax (For Daily Use) -] 17 gm PO DAILY 03/15/17 Ascorbic Acid [Vitamin C] 500 mg PO DAILY 03/24/17 Cholecalciferol (Vitamin D3) [Vitamin D3 -] 400 unit PO DAILY 03/24/17 Methenamine Hippurate [Hiprex [Nf] -] 2 gm PO BID 03/24/17 Family Disease History - Family Disease History Family Disease History: Heart Disease: Mother ( 75 H/o CHF and morbid obesity), Other: Father ( 76, H/O alcohol), Brother (colon adenoma) Review of Systems - Review of Systems Cardiovascular: reports: Chest Pain Gastrointestinal: reports: Indigestion Vital Signs: Vital Signs Temperature 97.6 F 03/24/17 17:08 Pulse Rate 66 03/24/17 17:08 Respiratory Rate 17 03/24/17 17:08 Blood Pressure 133/80 03/24/17 17:08 O2 Sat by Pulse Oximetry (%) 97 03/24/17 17:08 Constitutional: Yes: No Distress, Calm Neck: Yes: Supple Respiratory: Yes: Regular, CTA Bilaterally Gastrointestinal: Yes: Normal Bowel Sounds, Soft Cardiovascular: Yes: Regular Rate and Rhythm JVD: No Carotid Bruit: No Heart Sounds: Yes: S1, S2 Murmur: Yes: Systolic Murmur, Grade 2 Edema: No - Other Data Labs, Other Data: INR, PTT INR 2.53 (0.82-1.09) H D 03/24/17 15:00 NSR @ 70 LAD Imaging - Results Chest X-ray: Report Reviewed (NAD) Problem List - Problems (1) Chest pain Code(s): R07.9 - CHEST PAIN, UNSPECIFIED Qualifiers: Chest pain type: unspecified Qualified Code(s): R07.9 - Chest pain, unspecified (2) History of pacemaker Code(s): Z95.0 - PRESENCE OF CARDIAC PACEMAKER (3) Hyperlipidemia Code(s): E78.5 - HYPERLIPIDEMIA, UNSPECIFIED Qualifiers: Hyperlipidemia type: pure hypercholesterolemia Qualified Code(s): E78.00 - Pure hypercholesterolemia, unspecified; E78.0 - Pure hypercholesterolemia (4) Hypertension Code(s): I10 - ESSENTIAL (PRIMARY) HYPERTENSION Qualifiers: Hypertension type: essential hypertension Qualified Code(s): I10 - Essential (primary) hypertension (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 Atypical chest pain syndrome suspect GERD 2. H/o ERCP and sphincterotomy for choledocholithiasis 3. 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 Diastolic dysfunction with class 0-I NYHA classification LV failure, euvolemic 6. Moderate aortic stenosis 7. Paroxysmal atrial fibrillation currently in sinus rhythm with therapeutic INR 8. HTN/HCVD 9. Hyperlipidemia 10. Hypothyroidism PLAN: 1. Ruling out for VT, check TSH and lipoid panel, GI input 2. Continue losartan 50 qd, zocor 20 qhs, norvasc 5 qd, atenolol 100 qd, add Protonix 3. Coumadin per INR 4. Thank you for consultative opportunity
--- NOTE | 2017-03-24 21:32 | HP ---
Admitting History and Physical - Primary Care Physician PCP: Jacque Richardson S - Admission Chief Complaint: epigastric pain and vomiting History of Present Illness: 86-year-old female with a past medical history of atrial fibrillation, pacemaker , ASHD, pneumonia, prior cholecystectomy, recent gallstone ileus, recent hemorrhoid surgery, and a prior cardiac catheterizations She is on Coumadin at this time, and her INR on Tuesday was 2.6 Patient is complaining of an episode of upper mid-epigastric abdominal pain radiating into her chest started on Tuesday night, associated with sweats, nausea, and vomiting, which resolved spontaneously She states yesterday at 7:30 PM, she had another episode of the same, again which resolved spontaneously, but she was not sure how long last night's episode lasted for She states in some ways the pain feels similar to her gallstone ileus pain, although it has resolved at this time, and she has not had any episodes since 7: 30 last night She denies any neck jaw or arm radiation She denies any palpitations History Source: Patient, Medical Record Limitations to Obtaining History: No Limitations - Past Medical History Cardiovascular: Yes: AFIB, HTN, Hyperlipdemia Gastrointestinal: Yes: Diverticulitis, Hemorrhoids Heme/Onc: Yes: Other (Had bone marrow with Dr. Malik, ? 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 History of Recent Travel: No Home Medications - Allergies Allergies/Adverse Reactions: Allergies Allergy/AdvReac Type Severity Reaction Status Date / Time erythromycin base Allergy Unknown abdominal Verified 03/24/17 12:38 [Erythromycin Base] pain - Home Medications Home Medications: Ambulatory Orders Levothyroxine [Synthroid -] 50 mcg PO ASDIR 10/31/16 Warfarin Na [Coumadin -] 1 mg PO DAILY@1800 1 Days NS 11/10/16 Latanoprost 0.005% Eye Drops [Xalatan 0.005% Eye Drops -] 1 drop HS 12/16/16 Losartan Potassium [Cozaar -] 50 mg PO DAILY 12/16/16 Simvastatin 20 mg PO DAILY 12/16/16 Amlodipine Besylate 5 mg PO DAILY 03/15/17 Aspirin Coated [Ecotrin -] 81 mg PO DAILY 03/15/17 Atenolol [Tenormin -] 100 mg PO HS 03/15/17 Polyethylene Glycol 3350 [Miralax (For Daily Use) -] 17 gm PO DAILY 03/15/17 Ascorbic Acid [Vitamin C] 500 mg PO DAILY 03/24/17 Cholecalciferol (Vitamin D3) [Vitamin D3 -] 400 unit PO DAILY 03/24/17 Methenamine Hippurate [Hiprex [Nf] -] 2 gm PO BID 03/24/17 Family Disease History - Family Disease History Family Disease History: Heart Disease: Mother ( 75 H/o CHF and morbid obesity), Other: Father ( 76, H/O alcohol), Brother (colon adenoma) Review of Systems - Review of Systems Constitutional: denies: Chills, Fever, Lethargy Eyes: denies: Blind Spots, Blurred Vision, Double Vision HENT: denies: Difficult Swallowing, Ear Pain Neck: denies: Stiffness, Tenderness Cardiovascular: reports: Chest Pain. denies: Edema, Palpitations, Shortness of Breath Respiratory: denies: Cough, Orthopnea, SOB, SOB on Exertion Gastrointestinal: reports: Abdominal Pain, Diarrhea, Vomiting. denies: Bloating , Constipation, Melena, Nausea, Rectal Bleeding, Vomiting Blood Genitourinary: denies: Dysuria, Flank Pain Musculoskeletal: denies: Back Pain, Extremity Pain Integumentary: denies: Pruritis, Rash Neurological: denies: Change in LOC, Change in Speech, Confusion, Dizziness, Headache, Seizure, Syncope Hematology/Lymphatic: reports: Excessive Bleeding. denies: Easily Bruised Psychiatric: denies: Altered Sleep Pattern, Anxiety, Depression, Suicidal Physical Examination Vital Signs: Vital Signs Temperature 97.8 F 03/24/17 19:50 Pulse Rate 70 03/24/17 19:50 Respiratory Rate 18 03/24/17 19:50 Blood Pressure 134/77 03/24/17 19:50 O2 Sat by Pulse Oximetry (%) 98 03/24/17 19:50 Constitutional: Yes: No Distress, Calm Eyes: Yes: Conjunctiva Clear HENT: Yes: Atraumatic Neck: Yes: Supple Cardiovascular: Yes: Regular Rate and Rhythm, Murmur Respiratory: Yes: CTA Bilaterally Gastrointestinal: Yes: Soft. No: Distention, Tenderness Renal/: No: CVA Tenderness - Left, CVA Tenderness - Right, Lea Present, Hematuria Musculoskeletal: No: Joint Stiffness, Joint Swelling Extremities: No: Cold, Cool Edema: No Peripheral Pulses WNL: Yes Integumentary: No: Rash, Venous Stasis Changes Neurological: Yes: WNL, Alert, Oriented ...Motor Strength: WNL Psychiatric: Yes: WNL, Alert, Oriented. No: Agitated, Suicidal Ideation Imaging - Results Chest X-ray: Report Reviewed Other: Report Reviewed Assessment/Plan 86-year-old female with a past medical history of atrial fibrillation, pacemaker , ASHD, pneumonia, prior cholecystectomy, recent gallstone ileus, recent hemorrhoid surgery admitted with 2 episodes of upper midepigastric abdominal pain radiating into her chest with sweats, nausea, and vomiting ELICEO cardiac eval CE admit to telemetry h/o cholecystectomy and dilated biliary tree, GERD - will ask for GI eval falls pfx coumadin per inr d.w pt and staff
[2017-03-24] MEDS: PANTOPRAZOLE 40 MG TABLET (FP) PO SCH (22:29)
[2017-03-24] MEDS: ATENOLOL 50 MG TABLET (FP) PO SCH (22:29)
[2017-03-24] MEDS: ATORVASTATIN CA 20 MG TABLET (FP) PO SCH (22:29)
[2017-03-25 02:59] VITALS: BMI 25.5
[2017-03-25] MEDS: LEVOTHYROXINE NA 50 MCG TABLET (FP) PO SCH (06:08)
[2017-03-25 08:18] LABS: CHOLESTEROL 145 mg/dL (50-200); LDL CHOLESTEROL (ONLY SJRH) 58 mg/dL (5-100)
[2017-03-25 08:26] LABS: THYROID STIMULATING HORMONE 2.96 uIU/ml (0.358-3.74); TROPONIN I < 0.02 ng/ml (0.00-0.05)
--- NOTE | 2017-03-25 09:52 | PN ---
Progress Note, Physician History of Present Illness: No further sharp chest and mid-epigastric pain, improved with belching and emesis, reports diarrhea. She denies dyspnea, near or true syncope, palpitations , orthopnea, PND or LE edema. - Current Medication List Current Medications: Active Medications Amiodarone HCl (Cordarone -) 200 mg PO DAILY [facility] Amlodipine Besylate (Norvasc -) 5 mg PO DAILY [facility] Atenolol (Tenormin -) 100 mg PO DAILY [facility] Last Admin: 03/24/17 22:29 Dose: 100 mg Atorvastatin Calcium (Lipitor -) 20 mg PO HS [facility] Last Admin: 03/24/17 22:29 Dose: 20 mg Levothyroxine Sodium (Synthroid -) 50 mcg PO DAILY@0700 [facility] Last Admin: 03/25/17 06:08 Dose: 50 mcg Losartan Potassium (Cozaar -) 50 mg PO DAILY [facility] Pantoprazole Sodium (Protonix -) 40 mg PO DAILY [facility] Last Admin: 03/24/17 22:29 Dose: 40 mg Warfarin Sodium (Coumadin -) 1 mg PO DAILY@1800 [facility] - Objective Vital Signs: Vital Signs Temperature 97.6 F 03/25/17 06:00 Pulse Rate 68 03/25/17 06:00 Respiratory Rate 20 03/25/17 06:04 Blood Pressure 124/67 03/25/17 06:00 O2 Sat by Pulse Oximetry (%) 98 03/24/17 19:50 Constitutional: Yes: No Distress, Calm Neck: Yes: Supple Cardiovascular: Yes: Regular Rate and Rhythm, Murmur (2/6 SM) Respiratory: Yes: Regular, CTA Bilaterally Gastrointestinal: Yes: Normal Bowel Sounds, Soft Edema: No Labs: INR, PTT INR 2.53 (0.82-1.09) H D 03/24/17 15:00 - ....Imaging EKG: Report Reviewed (Tele: A-paced 60s) Problem List - Problems (1) Chest pain Code(s): R07.9 - CHEST PAIN, UNSPECIFIED Qualifiers: Chest pain type: unspecified Qualified Code(s): R07.9 - Chest pain, unspecified (2) History of pacemaker Code(s): Z95.0 - PRESENCE OF CARDIAC PACEMAKER (3) Hyperlipidemia Code(s): E78.5 - HYPERLIPIDEMIA, UNSPECIFIED Qualifiers: Hyperlipidemia type: pure hypercholesterolemia Qualified Code(s): E78.00 - Pure hypercholesterolemia, unspecified; E78.0 - Pure hypercholesterolemia (4) Hypertension Code(s): I10 - ESSENTIAL (PRIMARY) HYPERTENSION Qualifiers: Hypertension type: essential hypertension Qualified Code(s): I10 - Essential (primary) hypertension (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 Atypical chest pain syndrome suspect GERD 2. H/o ERCP and sphincterotomy for choledocholithiasis 3. 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 Diastolic dysfunction with class 0-I NYHA classification LV failure, euvolemic 6. Moderate aortic stenosis 7. Paroxysmal atrial fibrillation currently in sinus rhythm with therapeutic INR 8. HTN/HCVD 9. Hyperlipidemia 10. Hypothyroidism PLAN: 1. Ruled out for SC, GI input 2. Continue amio 200 qd, losartan 50 qd, zocor 20 qhs, norvasc 5 qd, atenolol 100 qd, Protonix 40 qd 3. Coumadin per INR
[2017-03-25] MEDS ORDERED: AMIODARONE HCL 200 MG TABLET (FP) PO SCH (10:00)
--- NOTE | 2017-03-25 10:08 | PN ---
Progress Note, Physician Chief Complaint: no CP/SOB; had diarrhea few times today seen by cardio and GI ELICEO negative - Current Medication List Current Medications: Active Medications Amiodarone HCl (Cordarone -) 200 mg PO DAILY [facility] Amlodipine Besylate (Norvasc -) 5 mg PO DAILY [facility] Atenolol (Tenormin -) 100 mg PO DAILY [facility] Last Admin: 03/24/17 22:29 Dose: 100 mg Atorvastatin Calcium (Lipitor -) 20 mg PO HS [facility] Last Admin: 03/24/17 22:29 Dose: 20 mg Levothyroxine Sodium (Synthroid -) 50 mcg PO DAILY@0700 [facility] Last Admin: 03/25/17 06:08 Dose: 50 mcg Losartan Potassium (Cozaar -) 50 mg PO DAILY [facility] Pantoprazole Sodium (Protonix -) 40 mg PO DAILY [facility] Last Admin: 03/24/17 22:29 Dose: 40 mg Warfarin Sodium (Coumadin -) 1 mg PO DAILY@1800 [facility] - Objective Vital Signs: Vital Signs Temperature 97.6 F 03/25/17 06:00 Pulse Rate 68 03/25/17 06:00 Respiratory Rate 20 03/25/17 06:04 Blood Pressure 124/67 03/25/17 06:00 O2 Sat by Pulse Oximetry (%) 98 03/24/17 19:50 Constitutional: Yes: No Distress, Calm Eyes: Yes: Conjunctiva Clear HENT: Yes: Atraumatic Neck: Yes: Supple Cardiovascular: Yes: Regular Rate and Rhythm Respiratory: Yes: CTA Bilaterally Gastrointestinal: Yes: Soft. No: Distention, Tenderness Genitourinary: No: CVA Tenderness - Left, CVA Tenderness - Right Musculoskeletal: No: Joint Stiffness, Joint Swelling Extremities: No: Cold, Cool Edema: No Peripheral Pulses WNL: Yes Integumentary: No: Rash, Venous Stasis Changes Neurological: Yes: WNL, Alert, Oriented ...Motor Strength: WNL Psychiatric: Yes: WNL, Alert, Oriented. No: Agitated, Suicidal Ideation Labs: INR, PTT INR 2.53 (0.82-1.09) H D 03/24/17 15:00 - ....Imaging Other: Report Reviewed Assessment/Plan 86-year-old female with a past medical history of atrial fibrillation, pacemaker , ASHD, pneumonia, prior cholecystectomy, recent gallstone ileus, recent hemorrhoid surgery admitted with 2 episodes of upper midepigastric abdominal pain radiating into her chest with sweats, nausea, and vomiting ELICEO negative most likely GI etiology; h/o cholecystectomy and dilated biliary tree, GERD - further w/u per gi falls pfx coumadin per inr d.w pt and staff
[2017-03-25] MEDS: PANTOPRAZOLE 40 MG TABLET (FP) PO SCH (10:16)
[2017-03-25] MEDS: amLODIPine BESYLATE 5 MG TABLET (FP) PO SCH (10:16)
[2017-03-25] MEDS: LOSARTAN POTASSIUM 50 MG TABLET (FP) PO SCH (10:16)
[2017-03-25] MEDS: ATENOLOL 50 MG TABLET (FP) PO SCH (10:16)
[2017-03-25 10:42] LABS: AMYLASE 44 U/L (25-115)
--- NOTE | 2017-03-25 11:12 | EKG ---
Test Reason : Blood Pressure : / mmHG Vent. Rate : 070 BPM Atrial Rate : 070 BPM P-R Int : 000 ms QRS Dur : 098 ms QT Int : 400 ms P-R-T Axes : 000 -29 054 degrees QTc Int : 432 ms atrial-paced complexes Confirmed by DEBORAH MCBRIDE MD ([id number]) on 03/25/2017 11:12:11 AM Referred By: Confirmed By:DEBORAH MCBRIDE MD
--- NOTE | 2017-03-25 14:59 | CON.GI ---
Consult Consult Specialty:: Gastroenterology Referred by:: Dr Richardson Reason for Consultation:: Chest pain and diaphoresis - History of Present Illness Chief Complaint: Chest pain and diaphoresis in two consecutive nights History of Present Illness: 86W describes severe lower retrosternal chest pain and diaphoresis that occurred on two consecutive nights ( 03/22, 03/23). She took some Tums that had minimal effect. The pain was reminiscent of the biliary colic that led to an ERCP in 10/29 when I removed a stone from the common bile duct. She is s/p cholecystectomy. CT reveals persistently dilated intra- and extrahepatic bile ducts and pneumobilia. The latter is attributable to her sphincterotomy.Her pain has completely resolved. She had a hemorrhoidectomy about a month ago. - History Source History Provided By: Patient, Medical Record Limitations to Obtaining History: No Limitations - Past Medical History Cardio/Vascular: Yes: AFIB, Aortic Stenosis (0.7cm), HTN, Hyperlipdemia, Mitral Insufficiency, Pulmonary Hypertension, Other (Episodes of vaso-depressive syncope, has PPM) Gastrointestinal: Yes: Diverticulitis (02/21), Diverticulosis, Hemorrhoids, Other (SBO in 10/26, ischemic colitis 10/26) Hepatobiliary: Yes: Cholelithiasis (s/pcholecsytectomy), Choledocholithiasis ( ERCP/sphincerotomy for CBD stone) Renal/: Yes: Neurogenic Bladder (had bladder stimulator placed) Infectious Disease: Yes: Herpes Zoster (2008) Musculoskeletal: Yes: Chronic low back pain, Osteoarthritis, Other (Spinal stenosis and C spine fracture.) Endocrine: Yes: Hypothyroidism Additional Medical History: Fibrocystic breast disease. Macular degeneration. Herpes Zoster 2008. Ischemic colitis and SBO 2012. Diverticulitis 02/21. C spine fracture. Spinal stenosis. 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 Place of : [facility] History of Recent Travel: No Home Medications - Allergies Allergies/Adverse Reactions: Allergies Allergy/AdvReac Type Severity Reaction Status Date / Time erythromycin base Allergy Unknown abdominal Verified 03/24/17 12:38 [Erythromycin Base] pain - Home Medications Home Medications: Ambulatory Orders Levothyroxine [Synthroid -] 50 mcg PO ASDIR 10/31/16 Warfarin Na [Coumadin -] 1 mg PO DAILY@1800 1 Days NS 11/10/16 Latanoprost 0.005% Eye Drops [Xalatan 0.005% Eye Drops -] 1 drop HS 12/16/16 Losartan Potassium [Cozaar -] 50 mg PO DAILY 12/16/16 Simvastatin 20 mg PO DAILY 12/16/16 Amlodipine Besylate 5 mg PO DAILY 03/15/17 Aspirin Coated [Ecotrin -] 81 mg PO DAILY 03/15/17 Atenolol [Tenormin -] 100 mg PO HS 03/15/17 Polyethylene Glycol 3350 [Miralax (For Daily Use) -] 17 gm PO DAILY 03/15/17 Ascorbic Acid [Vitamin C] 500 mg PO DAILY 03/24/17 Cholecalciferol (Vitamin D3) [Vitamin D3 -] 400 unit PO DAILY 03/24/17 Methenamine Hippurate [Hiprex [Nf] -] 2 gm PO BID 03/24/17 Family Disease History - Family Disease History Family Disease History: Diabetes: Brother (colon adenoma), Heart Disease: Father ( 76, H/O alcohol), Mother (,CKD), Brother, CA: Son (brainneoplasm), Other: Father, Brother Review of Systems - Review of Systems Constitutional: reports: Chills, Diaphoresis, Weakness Eyes: reports: No Symptoms HENT: reports: No Symptoms Neck: reports: No Symptoms Cardiovascular: reports: Chest Pain Respiratory: reports: No Symptoms Gastrointestinal: reports: Abdominal Pain, Nausea Neurological: reports: No Symptoms Physical Exam-GI Vital Signs: Vital Signs Temperature 97.5 F L 03/25/17 10:00 Pulse Rate 89 03/25/17 10:00 Respiratory Rate 20 03/25/17 10:00 Blood Pressure 134/77 03/25/17 10:00 O2 Sat by Pulse Oximetry (%) 98 03/24/17 19:50 Current Medications Generic Name Dose Route Start Last Admin Trade Name Freq PRN Reason Stop Dose Admin Amlodipine Besylate 5 mg 03/25/17 10:00 03/25/17 10:16 Norvasc - PO 5 mg DAILY [facility] Administration Atenolol 100 mg 03/24/17 20:00 03/25/17 10:16 Tenormin - PO 100 mg DAILY [facility] Administration Atorvastatin Calcium 20 mg 03/24/17 22:00 03/24/17 22:29 Lipitor - PO 20 mg HS [facility]INE Administration Levothyroxine Sodium 50 mcg 03/25/17 07:00 03/25/17 06:08 Synthroid - PO 50 mcg DAILY@0700 [facility] Administration Losartan Potassium 50 mg 03/25/17 10:00 03/25/17 10:16 Cozaar - PO 50 mg DAILY [facility] Administration Pantoprazole Sodium 40 mg 03/24/17 19:30 03/25/17 10:16 Protonix - PO 40 mg DAILY [facility] Administration Warfarin Sodium 1 mg 03/25/17 18:00 Coumadin - PO DAILY@1800 VAL[facility]INE CBC,CMP WBC 4.7 K/mm3 (4.0-10.0) 03/24/17 15:00 RBC 3.82 M/mm3 (3.60-5.2) 03/24/17 15:00 Hgb 12.2 GM/dL (10.7-15.3) 03/24/17 15:00 Hct 36.6 % (32.4-45.2) 03/24/17 15:00 MCV 95.7 fl (80-96) 03/24/17 15:00 MCHC 33.4 g/dl (32.0-36.0) 03/24/17 15:00 RDW 14.3 % (11.6-15.6) 03/24/17 15:00 Plt Count 200 K/MM3 (134-434) 03/24/17 15:00 MPV 9.2 fl (7.5-11.1) 03/24/17 15:00 Sodium 138 mmol/L (136-145) 03/24/17 15:12 Potassium 4.1 mmol/L (3.5-5.1) 03/24/17 15:12 Chloride 102 mmol/L (98-107) 03/24/17 15:12 Carbon Dioxide 28 mmol/L (21-32) 03/24/17 15:12 Anion Gap 8 (8-16) 03/24/17 15:12 BUN 15 mg/dL (7-18) 03/24/17 15:12 Creatinine Y 03/24/17 15:12 Creat Clearance w eGFR > 60 (>60) 03/24/17 15:12 Random Glucose 92 mg/dL (74-106) 03/24/17 15:12 Calcium 9.6 mg/dL (8.5-10.1) 03/24/17 15:12 Magnesium 2.3 mg/dL (1.8-2.4) 03/24/17 15:12 Total Bilirubin 0.5 mg/dL (0.2-1.0) 03/24/17 15:12 AST 24 U/L (15-37) D 03/24/17 15:12 ALT 21 U/L (12-78) D 03/24/17 15:12 Alkaline Phosphatase 129 U/L (45-117) H 03/24/17 15:12 Creatine Kinase 29 IU/L (26-192) 03/25/17 05:40 Troponin I < 0.02 ng/ml (0.00-0.05) 03/25/17 05:40 Total Protein 7.6 g/dl (6.4-8.2) 03/24/17 15:12 Albumin 3.2 g/dl (3.4-5.0) L 03/24/17 15:12 Triglycerides 74 mg/dL (35-160) 03/25/17 05:40 Cholesterol 145 mg/dL (50-200) 03/25/17 05:40 Total LDL Cholesterol 58 mg/dL (5-100) 03/25/17 05:40 HDL Cholesterol 84 mg/dL (40-60) H D 03/25/17 05:40 Total Amylase Cancelled 03/25/17 07:15 Lipase 141 U/L (73-393) 03/25/17 05:40 TSH 2.96 uIU/ml (0.358-3.74) D 03/25/17 05:40 Constitutional: Yes: No Distress, Calm Eyes: Yes: Conjunctiva Clear HENT: Yes: Atraumatic Neck: Yes: Trachea Midline Cardiovascular: Yes: Regular Rate and Rhythm (palpable left PPM), Murmur (2/6 ELIZABETH at base and apical areas) Respiratory: Yes: CTA Bilaterally Gastrointestinal Inspection: Yes: Scars (healed oblique RUQ, vertical RLQ abd Pfannensteil incisions) ...Auscultate: Yes: Normoactive Bowel Sounds ...Palpate: Yes: Soft, Other (nontender left inguinal hernia) ...Percussion: Yes: Tympanitic ...Rectal Exam: Yes: Deferred Labs: INR, PTT INR 2.53 (0.82-1.09) H D 03/24/17 15:00 Imaging - Results Cat Scan: Image Reviewed (dilated common bile, common hepatic and intrahepatic bile ducts) Problem List - Problems (1) History of hemorrhoidectomy Code(s): Z98.890 - OTHER SPECIFIED POSTPROCEDURAL STATES Assessment/Plan I believe that Chyna's severe pain and diaphoresis reflect biliary colic due to passage of another bile duct stone or sludge. Given the resolution of pain I believe that she has passed the stone. Unfortunately she cannot have an MRCP given her PPM. I will start Actigall to help her rid any residual stone or sludge. I have discussed the need to do another ERCP if her pain recurs or LFTs rise. If so antibiotics should be started after cultures. I have discussed ERCP in detail including informing Chyna of the potential for such complications as perforation, hemorrhage, general anesthesia and multiorgan failure associated with ERCP induced pancreatitis. She has consented should we need to proceed. Dr Rose will be covering this weekend.
[2017-03-25] MEDS ORDERED: WARFARIN NA 1 MG TABLET (FP) PO SCH (18:00)
[2017-03-25 20:02] LABS: INR 2.73 (0.82-1.09); PROTHROMBIN TIME (PATIENT) 30.7 SEC (9.98-11.88)
[2017-03-25] MEDS: URSODIOL 300 MG CAPSULE PO SCH (21:53)
[2017-03-25] MEDS: ATORVASTATIN CA 20 MG TABLET (FP) PO SCH (21:53)
[2017-03-26] MEDS: LEVOTHYROXINE NA 50 MCG TABLET (FP) PO SCH (06:12)
[2017-03-26 08:26] LABS: BASOPHIL 1.3 % (0-2.0); EOSINOPHIL 3.3 % (0-4.5); MCH 32.4 pg (25.7-33.7); MCHC 33.8 g/dl (32.0-36.0); MEAN CELL VOLUME 96.1 fl (80-96); NEUTROPHILS 61.2 % (42.8-82.8); PLATELET COUNT 193 K/MM3 (134-434); RDW 13.9 % (11.6-15.6); WHITE BLOOD COUNT 4.6 K/mm3 (4.0-10.0)
[2017-03-26 08:46] LABS: ALBUMIN 2.8 g/dl (3.4-5.0); ANION GAP 13 (8-16); BILIRUBIN,DIRECT 0.2 mg/dL (0.0-0.2); CALCIUM 8.8 mg/dL (8.5-10.1); CO2 26 mmol/L (21-32); GLUCOSE,RANDOM 79 mg/dL (74-106); SGOT/AST 18 U/L (15-37); SGPT/ALT 18 U/L (12-78)
[2017-03-26 08:50] LABS: INR 2.52 (0.82-1.09); PROTHROMBIN TIME (PATIENT) 28.2 SEC (9.98-11.88)
[2017-03-26 08:52] LABS: ALK PHOS 112 U/L (45-117); BILIRUBIN,TOTAL 0.5 mg/dL (0.2-1.0); CREATININE 0.8 mg/dL (0.55-1.02); TOT PROT 6.9 g/dl (6.4-8.2)
--- NOTE | 2017-03-26 09:39 | PN ---
Progress Note, Physician Chief Complaint: doing well wants to go home today no CP/SOB no N/V/C/D/ abdominal pain ate OK slept OK labs OK today consults reviewed and d/w pt - Current Medication List Current Medications: Active Medications Amlodipine Besylate (Norvasc -) [address] [facility] Last Admin: 03/25/17 10:16 Dose: 5 mg Atenolol (Tenormin -) [address] [facility] Last Admin: 03/25/17 10:16 Dose: 100 mg Atorvastatin Calcium (Lipitor -) [address] [facility] Last Admin: 03/25/17 21:53 Dose: 20 mg Levothyroxine Sodium (Synthroid -) 50 mcg PO DAILY@0700 [facility] Last Admin: 03/26/17 06:12 Dose: 50 mcg Losartan Potassium (Cozaar -) [address] [facility] Last Admin: 03/25/17 10:16 Dose: 50 mg Pantoprazole Sodium (Protonix -) [address] [facility] Last Admin: 03/25/17 10:16 Dose: 40 mg Ursodiol (Actigal -) [address] [facility] Last Admin: 03/25/17 21:53 Dose: 300 mg Warfarin Sodium (Coumadin -) 1 mg PO DAILY@1800 [facility] Last Admin: 03/25/17 21:53 Dose: 1 mg - Objective Vital Signs: Vital Signs Temperature 98.6 F 03/26/17 02:09 Pulse Rate 70 03/26/17 02:09 Respiratory Rate 19 03/26/17 02:09 Blood Pressure 148/77 03/26/17 02:09 O2 Sat by Pulse Oximetry (%) 97 03/26/17 05:00 Constitutional: Yes: No Distress, Calm Eyes: Yes: Conjunctiva Clear HENT: Yes: Atraumatic Neck: Yes: Supple Cardiovascular: Yes: Regular Rate and Rhythm Respiratory: Yes: CTA Bilaterally Gastrointestinal: Yes: Soft. No: Distention, Tenderness Musculoskeletal: No: Joint Stiffness, Joint Swelling Extremities: No: Cold, Cool, Erythema Edema: No Peripheral Pulses WNL: Yes Integumentary: No: Rash, Venous Stasis Changes Neurological: Yes: WNL, Alert, Oriented ...Motor Strength: WNL Psychiatric: Yes: WNL, Alert, Oriented. No: Agitated, Suicidal Ideation Labs: CBC, BMP 03/26/17 05:40 03/26/17 05:40 INR, PTT INR 2.52 (0.82-1.09) H 03/26/17 05:40 - ....Imaging Other: Report Reviewed Assessment/Plan 86-year-old female with a past medical history of atrial fibrillation, pacemaker , ASHD, pneumonia, prior cholecystectomy, recent gallstone ileus, recent hemorrhoid surgery admitted with 2 episodes of upper midepigastric abdominal pain radiating into her chest with sweats, nausea, and vomiting ELICEO negative most likely GI etiology; h/o cholecystectomy and dilated biliary tree, GERD - improved falls pfx coumadin per inr DC home f/u cardio and GI within 1 week d/w pt d.w pt and staff
[2017-03-26] MEDS: ATENOLOL 50 MG TABLET (FP) PO SCH (10:21)
[2017-03-26] MEDS: URSODIOL 300 MG CAPSULE PO SCH (10:27)
[2017-03-26] MEDS: amLODIPine BESYLATE 5 MG TABLET (FP) PO SCH (10:27)
[2017-03-26] MEDS: LOSARTAN POTASSIUM 50 MG TABLET (FP) PO SCH (10:27)
[2017-03-26] MEDS: PANTOPRAZOLE 40 MG TABLET (FP) PO SCH (10:27)
--- NOTE | 2017-03-26 10:53 | DS ---
Physical Examination Vital Signs: Vital Signs Temperature 98.6 F 03/26/17 02:09 Pulse Rate 70 03/26/17 02:09 Respiratory Rate 19 03/26/17 02:09 Blood Pressure 148/77 03/26/17 02:09 O2 Sat by Pulse Oximetry (%) 97 03/26/17 05:00 Findings/Remarks: see PE in progress note from today Labs: CBC, BMP 03/26/17 05:40 03/26/17 05:40 Discharge Summary Reason For Visit: CHEST PAIN Current Active Problems Acute coronary syndrome (Acute) Chest pain (Acute) History of hemorrhoidectomy (Acute) Hypotension (Acute) Hypothyroidism (Acute) Syncope (Acute) Urinary tract infection (Acute) Procedures: Principal: ELICEO CE telemetry monitoring; ELICEO Other Procedures: cardiology and GI eval Hospital Course: improved; ELICEO negative; DC home f/u outpt as advised Condition: Fair - Instructions Referrals: Gabe Richardson MD [Primary Care Provider] - Disposition: HOME - Home Medications Comprehensive Discharge Medication List: Ambulatory Orders Levothyroxine [Synthroid -] 50 mcg PO ASDIR 10/31/16 Warfarin Na [Coumadin -] 1 mg PO DAILY@1800 1 Days NS 11/10/16 Latanoprost 0.005% Eye Drops [Xalatan 0.005% Eye Drops -] 1 drop HS 12/16/16 Losartan Potassium [Cozaar -] 50 mg PO DAILY 12/16/16 Simvastatin 20 mg PO DAILY 12/16/16 Amlodipine Besylate 5 mg PO DAILY 03/15/17 Aspirin Coated [Ecotrin -] 81 mg PO DAILY 03/15/17 Atenolol [Tenormin -] 100 mg PO HS 03/15/17 Polyethylene Glycol 3350 [Miralax (For Daily Use) -] 17 gm PO DAILY 03/15/17 Ascorbic Acid [Vitamin C] 500 mg PO DAILY 03/24/17 Cholecalciferol (Vitamin D3) [Vitamin D3 -] 400 unit PO DAILY 03/24/17 Methenamine Hippurate [Hiprex [Nf] -] 2 gm PO BID 03/24/17
[2017-03-26 14:53] VITALS: BP 115/77; PULSE 72; TEMP 98.1
== END 2017-03-26 14:53 | disposition home or self-care (01) ==
LOC: JER 12:23 → JERBED 17:14 → J4W 20:43
PROVIDERS: ADMIT Internal Medicine; ATTEND Internal Medicine
DX: I24.9 Acute ischemic heart disease, unspecified (principal); R07.9 Chest pain, unspecified; I10 Essential (primary) hypertension; I48.0 Paroxysmal atrial fibrillation; I11.9 Hypertensive heart disease without heart failure; I35.0 Nonrheumatic aortic (valve) stenosis; Z95.0 Presence of cardiac pacemaker; E78.5 Hyperlipidemia, unspecified; E03.9 Hypothyroidism, unspecified; Z79.01 Long term (current) use of anticoagulants; Z87.01 Personal history of pneumonia (recurrent); Z98.61 Coronary angioplasty status; Z79.82 Long term (current) use of aspirin; Z87.891 Personal history of nicotine dependence; Z88.1 Allergy status to other antibiotic agents; Z98.890 Other specified postprocedural states; Z90.49 Acquired absence of other specified parts of digestive tract; N39.0 Urinary tract infection, site not specified
CPT/HCPCS: 36415; 71010-TC; 74176-TC; 80048; 80053; 80061; 80076; 82150; 82550; 82565; 83690; 83721; 83735; 84443; 84484; 85025; 85027; 85610; 93005; 93010; 99285-25; G0378; Q9967

== ENCOUNTER 2017-11-05 23:00 | Inpatient (IN) | payer OTHER, MEDICARE ==
--- NOTE | 2017-11-05 11:38 | PDOC ---
History of Present Illness - General History Source: Patient Exam Limitations: No Limitations - History of Present Illness Initial Comments: 11/05/17 13:35 The patient is a 87 year old female, with a significant past medical history of Atrial fibrillation (on Coumadin), HTN, HLD, CAD s/p stents and pacemaker, Hypothyroidism, Diverticulitis, recurrent UTIs who presents to the emergency department with abdominal pain today. Patient reports gradual onset of L lower abdominal pain, non radiating, constant, 9/10 in severity with no associated symptoms. Patient was seen by urologist and was prescribed antibiotics for UTI. Last night, patient developed diaphoresis, fever/chills which worsened this morning and was sent in by PCP for admission. Of note, patient did not take antibiotics as she was unable to pick them up until this morning. Patient denies chest pain, headache or dizziness. Patient denies nausea, vomit, diarrhea or constipation. Patient denies dysuria, frequency, urgency or hematuria. Patient denies sick contacts or recent travel. Allergies: erythromycin base Past surgical history: Cholecystectomy Social history: None PCP: Dr. Jacque Richardson Urologist: Halle <Nora Alicia - Last Filed: 11/05/17 13:35> <Nevaeh Sen - Last Filed: 11/05/17 16:33> - General Chief Complaint: Pain Stated Complaint: ABD PAIN, PCP SENT Past History <Nora Alicia - Last Filed: 11/05/17 13:35> - Past Medical History Anemia: No Asthma: No Cancer: No Cardiac Disorders: Yes (PACEMAKER X 1) COPD: No CHF: No GI Disorders: Yes (GALLSTONES EVEN THOUGH SHE HAD GALLBLADDER REMOVED) Disorders: Yes (BLADDER INFECTION) HTN: Yes Hypercholesterolemia: Yes Thyroid Disease: Yes (HYPO) - Surgical History Abdominal Surgery: (SLIT IN GALLBLADDDER DUCT, HEMMORHOID REMOVED) Appendectomy: Yes Cardiac Surgery: Yes (PACEMAKER X2 one for bladder) Cholecystectomy: Yes Lung Surgery: No Neurologic Surgery: No - Immunization History Immunization Up to Date: Yes - Suicide/Smoking/Psychosocial Hx Smoking Status: No Smoking History: Never smoked Have you smoked in the past 12 months: No Number of Cigarettes Smoked Daily: 0 Information on smoking cessation initiated: No Hx Alcohol Use: No Drug/Substance Use Hx: No Substance Use Type: None Hx Substance Use Treatment: No <MckinleyYomna - Last Filed: 11/05/17 16:33> - Past Medical History Allergies/Adverse Reactions: Allergies Allergy/AdvReac Type Severity Reaction Status Date / Time erythromycin base Allergy Unknown abdominal Verified 11/05/17 11:21 [Erythromycin Base] pain Home Medications: Ambulatory Orders Levothyroxine [Synthroid -] 50 mcg PO ASDIR 10/31/16 Warfarin Na [Coumadin -] 1 mg PO DAILY@1800 1 Days tablet NS 11/10/16 Latanoprost 0.005% Eye Drops [Xalatan 0.005% Eye Drops -] 1 drop HS 12/16/16 Losartan Potassium [Cozaar -] 50 mg PO DAILY 12/16/16 Simvastatin 20 mg PO DAILY 12/16/16 Amlodipine Besylate 5 mg PO DAILY 03/15/17 Aspirin Coated [Ecotrin -] 81 mg PO DAILY 03/15/17 Polyethylene Glycol 3350 [Miralax 119 gm Btl -] 17 gm PO DAILY 03/15/17 Ascorbic Acid [Vitamin C] 500 mg PO DAILY 03/24/17 Cholecalciferol (Vitamin D3) [Vitamin D -] 400 unit PO DAILY 03/24/17 Methenamine Hippurate [Hiprex [Nf] -] 2 gm PO BID 03/24/17 Aspirin 81 mg PO DAILY 11/05/17 Dorzolamide HCl [Trusopt 2%] 1 drop OD BID 11/05/17 Metoprolol Succinate 100 mg PO DAILY 11/05/17 Review of Systems - Review of Systems Able to Perform ROS?: Yes Comments:: 11/05/17 13:36 GENERAL/CONSTITUTIONAL: +fever +chills. No weakness. HEAD, EYES, EARS, NOSE AND THROAT: No change in vision. No ear pain or discharge. No sore throat. GASTROINTESTINAL: +Lower abdominal pain. No nausea, vomiting, diarrhea or constipation. GENITOURINARY: No dysuria, frequency, or change in urination. CARDIOVASCULAR: No chest pain or shortness of breath. RESPIRATORY: No cough, wheezing, or hemoptysis. MUSCULOSKELETAL: No joint or muscle swelling or pain. No neck or back pain. SKIN: No rash NEUROLOGIC: No headache, vertigo, loss of consciousness, or change in strength/ sensation. ENDOCRINE: No increased thirst. No abnormal weight change. HEMATOLOGIC/LYMPHATIC: No anemia, easy bleeding, or history of blood clots. ALLERGIC/IMMUNOLOGIC: No hives or skin allergy. <Nora Alicia - Last Filed: 11/05/17 13:35> *Physical Exam - Vital Signs Last Vital Signs Temp Pulse Resp BP Pulse Ox 97.5 F L 85 18 138/84 98 11/05/17 11:17 11/05/17 11:17 11/05/17 11:17 11/05/17 11:17 11/05/17 11:17 - Physical Exam Comments: 11/05/17 13:36 GENERAL: Awake, alert, and fully oriented, in no acute distress HEAD: No signs of trauma EYES: PERRLA, EOMI, sclera anicteric, conjunctiva clear ENT: Auricles normal inspection, hearing grossly normal, nares patent, oropharynx clear without exudates. Moist mucosa NECK: Normal ROM, supple, no lymphadenopathy, JVD, or masses LUNGS: Breath sounds equal, clear to auscultation bilaterally. No wheezes, and no crackles HEART: Regular rate and rhythm, normal S1 and S2, no murmurs, rubs or gallops ABDOMEN: +L lower abdominal tenderness and suprapubic tenderness to palpation. Soft, nontender, normoactive bowel sounds. No guarding, no rebound. No masses EXTREMITIES: Normal range of motion, no edema. No clubbing or cyanosis. No cords , erythema, or tenderness NEUROLOGICAL: Normal speech, cranial nerves intact, negative pronator drift, 5/ 5 strength in all 4 extremities, normal sensation to light touch in all 4 extremities, normal cerebellar exam, normal gait, normal reflexes and tone SKIN: Warm, Dry, normal turgor, no rashes or lesions noted. <Nora lAicia - Last Filed: 11/05/17 13:35> - Vital Signs Last Vital Signs Temp Pulse Resp BP Pulse Ox 97.5 F L 85 18 138/84 98 11/05/17 11:17 11/05/17 11:17 11/05/17 11:17 11/05/17 11:17 11/05/17 11:17 <Nevaeh Sen - Last Filed: 11/05/17 16:33> ED Treatment Course - LABORATORY CBC & Chemistry Diagram: 11/05/17 13:00 11/05/17 13:00 - ADDITIONAL ORDERS Additional order review: Laboratory Results 11/05/17 13:00 Magnesium Cancelled Lipase Cancelled <Nora Alicia - Last Filed: 11/05/17 13:35> - LABORATORY CBC & Chemistry Diagram: 11/05/17 13:00 11/05/17 13:00 <Nevaeh Sen - Last Filed: 11/05/17 16:33> Medical Decision Making - Medical Decision Making 11/05/17 13:03 87-year-old female with multiple medical problems including diverticulitis presents for admission due to abdominal pain. Patient was diagnosed with UTI yesterday. Vitals unremarkable. Exam with left lower quadrant and suprapubic tenderness palpation. Differential includes but is not limited to UTI versus diverticulitis versus colitis. 11/05/17 16:29 CT with increased biliary dilation, labs wnl. Pt admitted to Dr. Alvaro Richardson for further management. Case discussed in detail with admitting physician including history, physical exam and ancillary studies. Admitting physician has assumed care for the patient, will follow all pending diagnostics and will complete the evaluation and treatment. <Nevaeh Sen - Last Filed: 11/05/17 16:33> *DC/Admit/Observation/Transfer - Attestations Scribe Attestion: 11/05/17 13:36 Documentation prepared by Nora Alicia, acting as nuclear medical technologist for Nevaeh Sen MD <Nora Alicia - Last Filed: 11/05/17 13:35> - Discharge Dispostion Admit: Yes - Attestations Physician Attestion: 11/05/17 16:33 I, Dr. Nevaeh Sen MD, attest that this document has been prepared under my direction and personally reviewed by me in its entirety. I further attest, that it accurately reflects all work, treatment, procedures and medical decision -making performed by me. <Nevaeh Sen - Last Filed: 11/05/17 16:33> Diagnosis at time of Disposition: Abdominal pain - Discharge Dispostion Condition at time of disposition: Stable - Referrals Referrals: Gabe Richardson MD [Primary Care Provider] - - Patient Instructions - Post Discharge Activity
--- NOTE | 2017-11-05 11:52 | HP ---
Admitting History and Physical - Primary Care Physician PCP: Jacque Richardson S - Admission Chief Complaint: abdominal pain History of Present Illness: The patient is a 87 year old female, with a significant past medical history of Atrial fibrillation (on Coumadin), HTN, HLD, CAD s/p stents and pacemaker, Hypothyroidism, Diverticulitis, CBD stone extracted via ERCP 10/29, also recurrent UTIs who presents to the emergency department with abdominal pain today. Patient reports gradual onset of L lower abdominal pain, non radiating, constant, 9/10 in severity with no associated symptoms. Patient was seen by urologist and was prescribed antibiotics for UTI. Last night, patient developed diaphoresis, fever/chills which worsened this morning and was sent in by me to H ER for possible admission. Of note, patient did not take antibiotics as she was unable to pick them up until this morning but she did not start them yet. Patient denies chest pain, headache or dizziness. Patient denies nausea, vomit, diarrhea or constipation. Patient denies dysuria, frequency, urgency or hematuria. Patient denies sick contacts or recent travel. accomp by daughter in ER and d/w her at bedside Allergies: erythromycin base Past surgical history: Cholecystectomy Social history: None History Source: Patient, Family Member, Medical Record Limitations to Obtaining History: No Limitations - Past Medical History Cardiovascular: Yes: AFIB, Aortic Stenosis (0.7cm), HTN, Hyperlipdemia, Mitral Insufficiency, Pulmonary Hypertension, Other (Episodes of vaso-depressive syncope, has PPM) Gastrointestinal: Yes: Diverticulitis (02/21), Diverticulosis, Hemorrhoids, Other (SBO in 10/26, ischemic colitis 10/26) Hepatobiliary: Yes: Cholelithiasis (s/pcholecsytectomy), Choledocholithiasis ( ERCP/sphincerotomy for CBD stone) Renal/: Yes: Neurogenic Bladder (had bladder stimulator placed) Heme/Onc: Yes: Other (Had bone marrow with Dr. Malik, ? 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 ) Infectious Disease: Yes: Herpes Zoster (2008) Musculoskeletal: Yes: Chronic low back pain, Osteoarthritis, Other (Spinal stenosis and C spine fracture.) Endocrine: Yes: Hypothyroidism - Past Surgical History Past Surgical History: Yes: Appendectomy, Cataract Removal, Cholecystectomy, Colonoscopy, Hysterectomy, Permanent Pacemaker, Tonsillectomy, Upper Endoscopy - Smoking History Smoking history: Never smoked Have you smoked in the past 12 months: No Aproximately how many cigarettes per day: 0 - Alcohol/Substance Use Hx Alcohol Use: No History of Substance Use: reports: None - Social History Usual Living Arrangement: Yes: Alone ADL: Independent 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 History of Recent Travel: No Home Medications - Allergies Allergies/Adverse Reactions: Allergies Allergy/AdvReac Type Severity Reaction Status Date / Time erythromycin base Allergy Unknown abdominal Verified 11/05/17 11:21 [Erythromycin Base] pain - Home Medications Home Medications: Ambulatory Orders Levothyroxine [Synthroid -] 50 mcg PO ASDIR 10/31/16 Warfarin Na [Coumadin -] 1 mg PO DAILY@1800 1 Days tablet NS 11/10/16 Latanoprost 0.005% Eye Drops [Xalatan 0.005% Eye Drops -] 1 drop OU HS 12/16/16 Losartan Potassium [Cozaar -] 50 mg PO BID 12/16/16 Simvastatin 20 mg PO DAILY 12/16/16 Amlodipine Besylate 5 mg PO DAILY 03/15/17 Aspirin Coated [Ecotrin -] 81 mg PO DAILY 03/15/17 Polyethylene Glycol 3350 [Miralax 119 gm Btl -] 17 gm PO DAILY 03/15/17 Ascorbic Acid [Vitamin C] 500 mg PO DAILY 03/24/17 Cholecalciferol (Vitamin D3) [Vitamin D -] 400 unit PO DAILY 03/24/17 Methenamine Hippurate [Hiprex [Nf] -] 2 gm PO BID 03/24/17 Aspirin 81 mg PO DAILY 11/05/17 Dorzolamide HCl [Trusopt 2%] 1 drop OD BID 11/05/17 Metoprolol Succinate 100 mg PO DAILY 11/05/17 Brimonidine Tartrate/Timolol [Combigan Eye Drops] 1 drop OU BID 11/06/17 Family Disease History - Family Disease History Family Disease History: Diabetes: Brother (colon adenoma), Heart Disease: Father ( 76, H/O alcohol), Mother (,CKD), Brother, [place]: Son (brainneoplasm), Other: Father, Brother Review of Systems - Review of Systems Constitutional: denies: Chills, Fever, Lethargy Eyes: denies: Blind Spots, Double Vision HENT: denies: Difficult Swallowing Neck: denies: Decreased ROM, Stiffness, Tenderness Cardiovascular: denies: Chest Pain, Shortness of Breath Respiratory: denies: Cough, Hemoptysis Gastrointestinal: reports: Abdominal Pain, Bloating, Constipation. denies: Diarrhea, Rectal Bleeding, Vomiting, Vomiting Blood Genitourinary: reports: Burning, Dysuria. denies: Flank Pain Musculoskeletal: denies: Back Pain, Extremity Pain Integumentary: denies: Blister, Bruising Neurological: denies: Change in LOC, Change in Speech, Confusion Hematology/Lymphatic: denies: Easily Bruised, Excessive Bleeding Psychiatric: denies: Anxiety, Depression, Suicidal Physical Examination Vital Signs: Vital Signs Temperature 97.5 F L 11/05/17 11:17 Pulse Rate 85 11/05/17 11:17 Respiratory Rate 18 11/05/17 11:17 Blood Pressure 138/84 11/05/17 11:17 O2 Sat by Pulse Oximetry (%) 98 11/05/17 11:17 Constitutional: Yes: No Distress, Calm Eyes: Yes: Conjunctiva Clear HENT: Yes: Atraumatic Neck: Yes: Supple Cardiovascular: Yes: Regular Rate and Rhythm Respiratory: Yes: CTA Bilaterally Gastrointestinal: Yes: Soft. No: Distention, Tenderness Renal/: No: CVA Tenderness - Left, CVA Tenderness - Right Musculoskeletal: No: Joint Stiffness, Joint Swelling Extremities: No: Cold, Cool Edema: No Integumentary: No: Rash, Venous Stasis Changes Neurological: Yes: WNL, Alert, Oriented ...Motor Strength: WNL Psychiatric: Yes: WNL, Alert, Oriented. No: Agitated, Suicidal Ideation Imaging - Results Chest X-ray: Report Reviewed Cat Scan: Report Reviewed Other: Report Reviewed Assessment/Plan The patient is a 87 year old female, with a significant past medical history of Atrial fibrillation (on Coumadin), HTN, HLD, CAD s/p stents and pacemaker, Hypothyroidism, Diverticulitis, CBD stone extracted via ERCP 10/29; recurrent UTIs who presents to the emergency department with abdominal pain today. Patient reports gradual onset of L lower abdominal pain, non radiating, constant , 9/10 in severity with no associated symptoms. Patient was seen by urologist and was prescribed antibiotics for UTI. Last night, patient developed diaphoresis, fever/chills which worsened this morning and was sent in by me for further eval and treatment. abdomen CT IV ATB GI eval UA UCx r/o UTU d/w pt and daughter falls decubs PFX d/w H staff
[2017-11-05 13:29] LABS: BASO % 1.1 % (0-2.0); HEMATOCRIT 37.5 % (32.4-45.2); HEMOGLOBIN 12.5 GM/dL (10.7-15.3); LYMPH % 15.9 % (8-40); MCHC 33.3 g/dl (32.0-36.0); MEAN CELL VOLUME 93.2 fl (80-96); MONO % 15.9 % (3.8-10.2); NEUT % 64.1 % (42.8-82.8); PLATELET COUNT 160 K/MM3 (134-434); RBC 4.02 M/mm3 (3.60-5.2); RDW 13.3 % (11.6-15.6); WHITE BLOOD COUNT 5.6 K/mm3 (4.0-10.0)
[2017-11-05 13:46] LABS: ANION GAP 12 (8-16); BILIRUBIN,TOTAL 0.6 mg/dL (0.2-1.0); BLOOD UREA NITROGEN 15 mg/dL (7-18); CALCIUM 9.4 mg/dL (8.5-10.1); CHLORIDE 101 mmol/L (98-107); CO2 24 mmol/L (21-32); GLUCOSE,RANDOM 91 mg/dL (74-106); LIPASE 146 U/L (73-393); MAGNESIUM 2.4 mg/dL (1.8-2.4); POTASSIUM 3.9 mmol/L (3.5-5.1); SGOT/AST 33 U/L (15-37); SGPT/ALT 48 U/L (12-78); SODIUM 137 mmol/L (136-145); TOT PROT 7.5 g/dl (6.4-8.2)
[2017-11-05 13:47] LABS: ALK PHOS 239 U/L (45-117); CREATININE 0.7 mg/dL (0.55-1.02)
[2017-11-05 14:34] LABS: INR 2.87 (0.82-1.09); PROTHROMBIN TIME (PATIENT) 32.4 SEC (9.98-11.88)
[2017-11-05 15:45] LABS: URINE APPEARANCE CLOUDY; URINE BILIRUBIN NEGATIVE (NEGATIVE); URINE BLOOD NEGATIVE (NEGATIVE); URINE COLOR YELLOW; URINE GLUCOSE (UA) NEGATIVE (NEGATIVE); URINE KETONE NEGATIVE (NEGATIVE); URINE NITRITE NEGATIVE (NEGATIVE); URINE PROTEIN NEGATIVE (NEGATIVE); URINE UROBILINOGEN NEGATIVE mg/dL (0.2-1.0)
[2017-11-05 15:47] LABS: URINE LEUK ESTERASE 3+ (NEGATIVE)
[2017-11-05 15:51] LABS: EPI CELLS RARE /HPF (FEW); URINE BACTERIA MANY /hpf (NONE SEEN)
--- NOTE | 2017-11-05 16:13 | EKG ---
Test Reason : Blood Pressure : / mmHG Vent. Rate : 072 BPM Atrial Rate : 071 BPM P-R Int : 000 ms QRS Dur : 096 ms QT Int : 400 ms P-R-T Axes : 000 -20 014 degrees QTc Int : 438 ms AV SEQUENTIAL OR DUAL CHAMBER ELECTRONIC PACEMAKER NONSPECIFIC T WAVE ABNORMALITY ABNORMAL ECG WHEN COMPARED WITH ECG OF 24-MAR-2017 12:30, NONSPECIFIC T WAVE ABNORMALITY NOW EVIDENT IN ANTERIOR LEADS Confirmed by TROY MONTIEL, EDMAR ([id number]) on 11/05/2017 4:13:27 PM Referred By: Confirmed By:EDMAR SIMMONS MD
[~2017-11-05 23:00] MED LIST: CEFTRIAXONE 1 GM in DEXTROSE 5%-WATER - 50 ML IVPB ONE; CEFTRIAXONE 1 GM/50 ML BAG ONE
--- NOTE | 2017-11-06 07:00 | PN ---
Progress Note, Physician Chief Complaint: in bed feels a little better meds consults and tests dw pt and daughter - Current Medication List Current Medications: Active Medications Amlodipine Besylate (Norvasc -) 5 mg PO DAILY [facility] Aspirin (Asa -) 81 mg PO DAILY [facility] Atorvastatin Calcium (Lipitor -) 10 mg PO HS [facility] Cholecalciferol (Vitamin D3 -) 400 unit PO DAILY [facility] Dorzolamide HCl (Trusopt 2%) 1 drop OD BID [facility] CEFTRIAXONE 1 G/50 ML PREMIX (Ceftriaxone 1 Gm-D5w Bag) 50 mls @ 100 mls/hr IVPB DAILY [facility] Latanoprost (Xalatan 0.005% Eye Drops -) 1 drop OU HS [facility] Levothyroxine Sodium (Synthroid -) 50 mcg PO SuTuThSa@0700 [facility] Levothyroxine Sodium (Synthroid -) 75 mcg PO MoWeFr@0700 [facility] Losartan Potassium (Cozaar -) 50 mg PO DAILY [facility] Metoprolol Succinate (Toprol Xl -) 100 mg PO DAILY [facility] Non-Formulary Medication (Methenamine Hippurate) 2 gm PO BID [facility] Polyethylene Glycol (Miralax (For Daily Use) -) 17 gm PO DAILY [facility] Warfarin Sodium (Coumadin -) 1 mg PO DAILY@1800 [facility] - Objective Vital Signs: Vital Signs Temperature 98.8 F 11/05/17 17:08 Pulse Rate 71 11/05/17 17:08 Respiratory Rate 20 11/05/17 17:08 Blood Pressure 109/46 11/05/17 17:08 O2 Sat by Pulse Oximetry (%) 96 11/05/17 17:08 Constitutional: Yes: No Distress, Calm Eyes: Yes: Conjunctiva Clear HENT: Yes: Atraumatic Neck: Yes: Supple Cardiovascular: Yes: Regular Rate and Rhythm Respiratory: Yes: CTA Bilaterally Gastrointestinal: Yes: Soft. No: Distention, Tenderness Genitourinary: No: CVA Tenderness - Left, CVA Tenderness - Right Musculoskeletal: No: Joint Stiffness, Joint Swelling Extremities: No: Cold, Cool, Cyanosis Edema: No Integumentary: No: Rash, Venous Stasis Changes Neurological: Yes: WNL, Alert, Oriented ...Motor Strength: WNL Psychiatric: Yes: WNL, Alert, Oriented. No: Agitated, Suicidal Ideation Labs: CBC, BMP 11/05/17 13:00 11/05/17 13:00 INR, PTT INR 2.87 (0.82-1.09) H 11/05/17 13:00 - ....Imaging Other: Report Reviewed Assessment/Plan The patient is a 87 year old female, with a significant past medical history of Atrial fibrillation (on Coumadin), HTN, HLD, CAD s/p stents and pacemaker, Hypothyroidism, Diverticulitis, CBD stone extracted via ERCP 10/29; recurrent UTIs who presents to the emergency department with abdominal pain. Patient reports gradual onset of L lower abdominal pain, non radiating, constant, 9/10 in severity with no associated symptoms. Patient was seen by urologist and was prescribed antibiotics for UTI. Last night, patient developed diaphoresis, fever/chills which worsened this morning and was sent in by me for further eval and treatment. abdomen CT IV ATB GI f/u UA UCx r/o UTI d/w pt and daughter falls decubs PFX d/w H staff
[2017-11-06] MEDS: LEVOTHYROXINE NA 50 MCG TABLET (FP) PO SCH (07:30)
[2017-11-06 08:11] LABS: INR 2.84 (0.82-1.09); PROTHROMBIN TIME (PATIENT) 32.1 SEC (9.98-11.88)
[2017-11-06 08:18] LABS: BASO % 1.4 % (0-2.0); EOS % 4.5 % (0-4.5); HEMATOCRIT 38.2 % (32.4-45.2); HEMOGLOBIN 12.7 GM/dL (10.7-15.3); LYMPH % 19.1 % (8-40); MCH 31.1 pg (25.7-33.7); MCHC 33.2 g/dl (32.0-36.0); MEAN CELL VOLUME 93.8 fl (80-96); MEAN PLT VOLUME 9.3 fl (7.5-11.1); MONO % 18.9 % (3.8-10.2); NEUT % 56.1 % (42.8-82.8); PLATELET COUNT 163 K/MM3 (134-434); RBC 4.07 M/mm3 (3.60-5.2); RDW 13.4 % (11.6-15.6); WHITE BLOOD COUNT 5.1 K/mm3 (4.0-10.0)
[2017-11-06 08:41] LABS: CHLORIDE 102 mmol/L (98-107); POTASSIUM 3.9 mmol/L (3.5-5.1); SODIUM 136 mmol/L (136-145)
[2017-11-06 09:01] LABS: ALBUMIN 2.9 g/dl (3.4-5.0); ALK PHOS 218 U/L (45-117); ANION GAP 9 (8-16); BILIRUBIN,TOTAL 0.4 mg/dL (0.2-1.0); BLOOD UREA NITROGEN 12 mg/dL (7-18); CALCIUM 8.9 mg/dL (8.5-10.1); CO2 25 mmol/L (21-32); CREATININE 0.7 mg/dL (0.55-1.02); GLUCOSE,RANDOM 86 mg/dL (74-106); SGOT/AST 27 U/L (15-37); SGPT/ALT 39 U/L (12-78); TOT PROT 7.4 g/dl (6.4-8.2)
[2017-11-06 09:24] VITALS: BMI 24.6
[2017-11-06] MEDS ORDERED: DORZOLAMIDE 2% HCL OPHTHALMIC SOLUTION 10 ML BOTTLE OD SCH (10:00)
[2017-11-06] MEDS ORDERED: LOSARTAN POTASSIUM 25 MG TABLET PO SCH (10:00)
[2017-11-06] MEDS: POLYETHYLENE GLYCOL 3350 119 GM BTL PO SCH (10:44)
[2017-11-06] MEDS ORDERED: PT OWN MED DRAWER 7, Y5N ONE ×2 (10:50→21:25)
[2017-11-06] MEDS: amLODIPine BESYLATE 5 MG TABLET (FP) PO SCH (10:57)
[2017-11-06] MEDS: ASPIRIN 81 MG CHEWABLE TABLETS PO SCH (10:58)
[2017-11-06] MEDS: METOPROLOL SUCCINATE 100 MG TAB.SR.24H (FP) PO SCH (10:58)
[2017-11-06] MEDS: CHOLECALCIFEROL (VITAMIN D3) 400 UNIT TABLET (FP) PO SCH (10:58)
[2017-11-06] MEDS: CEFTRIAXONE 1 G/50 ML PREMIX 50 ML IVPB SCH (10:59)
--- NOTE | 2017-11-06 12:00 | CON.CARD ---
Consult Consult Specialty:: Cardiology Referred by:: Jacque Richardson MD Reason for Consultation:: Abd pain - History of Present Illness Chief Complaint: Abd pain History of Present Illness: 87-year-old female history of 2 vesseal CAD, diastolic dysfunction, moderate aortic stenosis, hypertension, cardioinhibitory/carotid hypersensitivity s/p pacemaker, hyperlipidemia, paroxysmal A.fib on Coumadin [id number], s/p appy, cholecystectomy and hysterectomy, diverticulosis/itis, GERD presented with left lower abdominal pain, non radiating, constant, 9/10 in severity with no associated symptoms. Patient was seen by urologist and was prescribed antibiotics for UTI. Patient developed diaphoresis, fever/chills, started on IV abx, abd pain abating after large bowel movement. Allergies: erythromycin base Past surgical history: Cholecystectomy Social history: None PCP: Dr. Jacque Richardson Urologist: Halle - History Source History Provided By: Patient Limitations to Obtaining History: No Limitations - Past Medical History Cardio/Vascular: Yes: AFIB, Aortic Stenosis (0.7cm), HTN, Hyperlipdemia, Mitral Insufficiency, Pulmonary Hypertension, Other (Episodes of vaso-depressive syncope, has PPM) Gastrointestinal: Yes: Diverticulitis (02/21), Diverticulosis, Hemorrhoids, Other (SBO in 10/26, ischemic colitis 10/26) Hepatobiliary: Yes: Cholelithiasis (s/pcholecsytectomy), Choledocholithiasis ( ERCP/sphincerotomy for CBD stone) Renal/: Yes: Neurogenic Bladder (had bladder stimulator placed) Infectious Disease: Yes: Herpes Zoster (2008) Musculoskeletal: Yes: Chronic low back pain, Osteoarthritis, Other (Spinal stenosis and C spine fracture.) Endocrine: Yes: Hypothyroidism Additional Medical History: Fibrocystic breast disease. Macular degeneration. Herpes Zoster 2008. Ischemic colitis and SBO 2012. Diverticulitis 02/21. C spine fracture. Spinal stenosis. 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 History of Recent Travel: No Home Medications - Allergies Allergies/Adverse Reactions: Allergies Allergy/AdvReac Type Severity Reaction Status Date / Time erythromycin base Allergy Unknown abdominal Verified 11/05/17 11:21 [Erythromycin Base] pain - Home Medications Home Medications: Ambulatory Orders Levothyroxine [Synthroid -] 50 mcg PO ASDIR 10/31/16 Warfarin Na [Coumadin -] 1 mg PO DAILY@1800 1 Days tablet NS 11/10/16 Latanoprost 0.005% Eye Drops [Xalatan 0.005% Eye Drops -] 1 drop OU HS 12/16/16 Losartan Potassium [Cozaar -] 50 mg PO BID 12/16/16 Simvastatin 20 mg PO DAILY 12/16/16 Amlodipine Besylate 5 mg PO DAILY 03/15/17 Aspirin Coated [Ecotrin -] 81 mg PO DAILY 03/15/17 Polyethylene Glycol 3350 [Miralax 119 gm Btl -] 17 gm PO DAILY 03/15/17 Ascorbic Acid [Vitamin C] 500 mg PO DAILY 03/24/17 Cholecalciferol (Vitamin D3) [Vitamin D -] 400 unit PO DAILY 03/24/17 Methenamine Hippurate [Hiprex [Nf] -] 2 gm PO BID 03/24/17 Aspirin 81 mg PO DAILY 11/05/17 Dorzolamide HCl [Trusopt 2%] 1 drop OU BID 11/05/17 Metoprolol Succinate 100 mg PO DAILY 11/05/17 Brimonidine Tartrate/Timolol [Combigan Eye Drops] 1 drop OU BID 11/06/17 Family Disease History - Family Disease History Family Disease History: Diabetes: Brother (colon adenoma), Heart Disease: Father ( 76, H/O alcohol), Mother (,CKD), Brother, [place]: Son (brainneoplasm), Other: Father, Brother Review of Systems - Review of Systems Gastrointestinal: reports: Abdominal Pain Vital Signs: Vital Signs Temperature 97.9 F 11/06/17 06:00 Pulse Rate 72 11/06/17 06:00 Respiratory Rate 18 11/06/17 06:00 Blood Pressure 132/79 11/06/17 06:00 O2 Sat by Pulse Oximetry (%) 96 11/05/17 17:08 Constitutional: Yes: No Distress, Calm, Thin Neck: Yes: Supple Respiratory: Yes: Regular, CTA Bilaterally Gastrointestinal: Yes: Normal Bowel Sounds, Soft Cardiovascular: Yes: Regular Rate and Rhythm JVD: No Carotid Bruit: No Heart Sounds: Yes: S1, S2 Murmur: Yes: Systolic Murmur, Grade 2 Edema: No - Other Data Labs, Other Data: CBC, BMP 11/06/17 06:50 11/06/17 06:50 INR, PTT INR 2.84 (0.82-1.09) H 11/06/17 06:50 A-V paced @ 72 Imaging - Results Cat Scan: Report Reviewed (No diverticulitis, + biliary duct dilatation) Problem List - Problems (1) Abdominal pain Code(s): R10.9 - UNSPECIFIED ABDOMINAL PAIN Qualifiers: Abdominal location: left lower quadrant Qualified Code(s): R10.32 - Left lower quadrant pain (2) Dilated cbd, acquired Code(s): K83.8 - OTHER SPECIFIED DISEASES OF BILIARY TRACT (3) History of pacemaker Code(s): Z95.0 - PRESENCE OF CARDIAC PACEMAKER (4) Hyperlipidemia Code(s): E78.5 - HYPERLIPIDEMIA, UNSPECIFIED Qualifiers: Hyperlipidemia type: pure hypercholesterolemia Qualified Code(s): E78.00 - Pure hypercholesterolemia, unspecified (5) Hypertension Code(s): I10 - ESSENTIAL (PRIMARY) HYPERTENSION Qualifiers: Hypertension type: essential hypertension Qualified Code(s): I10 - Essential (primary) hypertension (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 Code(s): I11.9 - HYPERTENSIVE HEART DISEASE WITHOUT HEART FAILURE (7) Hypothyroidism Code(s): E03.9 - HYPOTHYROIDISM, UNSPECIFIED Qualifiers: Hypothyroidism type: unspecified Qualified Code(s): E03.9 - Hypothyroidism , unspecified (8) Moderate aortic valve stenosis Code(s): I35.0 - NONRHEUMATIC AORTIC (VALVE) STENOSIS (9) Neurocardiogenic syncope Code(s): R55 - SYNCOPE AND COLLAPSE (10) Paroxysmal atrial fibrillation Code(s): I48.0 - PAROXYSMAL ATRIAL FIBRILLATION (11) Urinary tract infection Code(s): N39.0 - URINARY TRACT INFECTION, SITE NOT SPECIFIED Qualifiers: Urinary tract infection type: site unspecified (12) Coronary artery disease Code(s): I25.10 - ATHSCL HEART DISEASE OF [place] CORONARY ARTERY W/O ANG PCTRS Qualifiers: Coronary Disease-Associated Artery/Lesion type: [place] artery [place] vs. transplanted heart: [place] heart Associated angina: without angina Qualified Code(s): I25.10 - Atherosclerotic heart disease of [place] coronary artery without angina pectoris Assessment/Plan 1. Abd pain, postcholecystectomy bile duct dilatation 2. H/o ERCP and sphincterotomy for choledocholithiasis 3. 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 Diastolic dysfunction with class 0-I NYHA classification LV failure, euvolemic 6. Moderate aortic stenosis 7. Paroxysmal atrial fibrillation currently in sinus rhythm with therapeutic INR 8. HTN/HCVD 9. Hyperlipidemia 10. Hypothyroidism 11. UTI PLAN: 1. Complete abx course per C&S 2. Continue amio 200 qd, losartan 50 qd, zocor 20 qhs, norvasc 5 qd, atenolol 100 qd, Protonix 40 qd 3. Coumadin per INR 4. Dose Synthroid per TSH 5. GI input pending for eval of postcholecystectomy bile duct diltatation 6. Thank you for consultatuve opportunity
--- NOTE | 2017-11-06 14:23 | PN ---
Progress Note (short form) - Note Progress Note: GI CONSULTATION: PT SEEN AND EXAMINED CONSULT DICTATED PT SEEN 11/03/17 IN OFFICE WITH FECAL IMPACTION NOW HAD LARGE BM AFTER ORAL CT CONTRAST FEELS BETTER UP PACING THE FLOOR NO PAIN NO ACTUVE FINDINGS EXAM BENIGN LABS NORMAL CT SCAN WITHOUT ACUTE FINDINGS RECC: SOLID DIET/ INCREASE WATER AND FIBER/ MIRALAX 17 GRAMS PO BID OUTPATIENT GI F/U THANKS, MD KELLY
[2017-11-06] MEDS: WARFARIN NA 1 MG TABLET (FP) PO SCH (18:24)
[2017-11-06] MEDS: LATANOPROST 0.005% OPHTH SOLN 2.5ML BOTTLE OU SCH (21:38)
[2017-11-06] MEDS: BRIMONIDINE TARTRATE 0.2% OPHTHALMIC 5 ML BOTTLE OU SCH (21:40)
[2017-11-06] MEDS: TIMOLOL 0.5% OPHTHALMIC SOL 5 ML BOTTLE OU SCH (21:40)
[2017-11-06] MEDS: ATORVASTATIN CA 10 MG TABLET (FP) PO SCH (21:41)
[2017-11-06] MEDS: LOSARTAN POTASSIUM 50 MG TABLET (FP) PO SCH (21:41)
[2017-11-06] MEDS ORDERED: PATIENT'S OWN MEDICATION (NON-FORMULARY) (Brimonidine Tartrate/Timolol [Combigan 0.2%-0.5% OU SCH (22:00)
[2017-11-06] MEDS ORDERED: TIMOLOL 0.5% OPHTHALMIC SOL 5 ML BOTTLE OU SCH (22:00)
[2017-11-06] MEDS ORDERED: DORZOLAMIDE 2% HCL OPHTHALMIC SOLUTION 10 ML BOTTLE OU SCH (22:00)
[2017-11-07] MEDS: LEVOTHYROXINE NA 75 MCG TABLET (FP) PO SCH (06:10)
[2017-11-07 08:16] LABS: INR 2.07 (0.82-1.09); PROTHROMBIN TIME (PATIENT) 23.4 SEC (9.98-11.88)
--- NOTE | 2017-11-07 08:27 | DS ---
Physical Examination Vital Signs: Vital Signs Temperature 98.1 F 11/07/17 06:00 Pulse Rate 66 11/07/17 06:00 Respiratory Rate 18 11/07/17 06:00 Blood Pressure 109/63 11/07/17 06:00 O2 Sat by Pulse Oximetry (%) 96 11/06/17 21:00 Findings/Remarks: OOB to chair feels better ambulates OK ate OK d/w GI dr Forde could go home and f/u with GI dr Caputo in office next week Constitutional: Yes: No Distress, Calm Eyes: Yes: Conjunctiva Clear HENT: Yes: Atraumatic Neck: Yes: Supple Cardiovascular: No: Regular Rate and Rhythm Respiratory: Yes: CTA Bilaterally Gastrointestinal: Yes: Soft. No: Distention, Tenderness Renal/: Yes: CVA Tenderness - Right. No: CVA Tenderness - Left Musculoskeletal: No: Joint Stiffness, Joint Swelling Extremities: No: Cold, Cool, Cyanosis Edema: No Integumentary: No: Rash, Venous Stasis Changes Neurological: Yes: WNL, Alert, Oriented ...Motor Strength: WNL Psychiatric: Yes: WNL, Alert, Oriented. No: Agitated, Suicidal Ideation Labs: CBC, BMP 11/07/17 07:00 Discharge Summary Reason For Visit: UTI Current Active Problems Abdominal pain (Acute) Coronary artery disease (Acute) Pacemaker (Acute) Procedures: Principal: abdominal pain UTI biliary stones Other Procedures: GI eval; IV ATB Hospital Course: improved with above; f/u with GI wothin 1 week cardiology, and PCP f.u in 2-4 weeks Condition: Stable - Instructions Diet, Activity, Other Instructions: f/u PCP and GI in 1-2 weeks f/u and cardiology in 2-4 weeks coumadin per INR RTER if worse or recurrent, fever/abdominal pain falls PFX d/w pt Referrals: Gabe Richardson MD [Primary Care Provider] - Disposition: VNS/HOME HEALTH CARE - Home Medications Comprehensive Discharge Medication List: Ambulatory Orders Levothyroxine [Synthroid -] 50 mcg PO ASDIR 10/31/16 Warfarin Na [Coumadin -] 1 mg PO DAILY@1800 1 Days tablet NS 11/10/16 Latanoprost 0.005% Eye Drops [Xalatan 0.005% Eye Drops -] 1 drop OU HS 12/16/16 Losartan Potassium [Cozaar -] 50 mg PO BID 12/16/16 Simvastatin 20 mg PO DAILY 12/16/16 Amlodipine Besylate 5 mg PO DAILY 03/15/17 Aspirin Coated [Ecotrin -] 81 mg PO DAILY 03/15/17 Polyethylene Glycol 3350 [Miralax 119 gm Btl -] 17 gm PO DAILY 03/15/17 Ascorbic Acid [Vitamin C] 500 mg PO DAILY 03/24/17 Cholecalciferol (Vitamin D3) [Vitamin D -] 400 unit PO DAILY 03/24/17 Methenamine Hippurate [Hiprex [Nf] -] 2 gm PO BID 03/24/17 Aspirin 81 mg PO DAILY 11/05/17 Dorzolamide HCl [Trusopt 2%] 1 drop OD BID 11/05/17 Metoprolol Succinate 100 mg PO DAILY 11/05/17 Brimonidine Tartrate/Timolol [Combigan Eye Drops] 1 drop OU BID 11/06/17
[2017-11-07 08:31] LABS: CHLORIDE 106 mmol/L (98-107); POTASSIUM 4.1 mmol/L (3.5-5.1); SODIUM 140 mmol/L (136-145)
[2017-11-07 08:35] LABS: ANION GAP 10 (8-16); BLOOD UREA NITROGEN 11 mg/dL (7-18); CALCIUM 9.1 mg/dL (8.5-10.1); CO2 24 mmol/L (21-32); CREATININE 0.6 mg/dL (0.55-1.02); GLUCOSE,RANDOM 81 mg/dL (74-106)
--- NOTE | 2017-11-07 09:26 | CONS ---
GASTROENTEROLOGY CONSULTATION DATE OF CONSULTATION: 11/06/2017 HISTORY OF PRESENT ILLNESS: I was asked by Dr. Richardson to evaluate this patient for abdominal pain. The patient is known to myself. I saw her in our office approximately 3 days ago. At that time she presented as an 87-year-old white female who was very well-known to my partner Dr. Caputo over the years. She has been followed for numerous GI issues. She has had bile duct stones with ERCP. She has had ischemic colitis. She has had diverticulosis and diverticulitis in the past. She had a hemorrhoidectomy in [address] Chris Calvert and she has had colonoscopies over the years. Her last one was in 2004 that revealed diverticulosis and minimally enlarged hemorrhoids. She has apparently had pain due to adhesions from prior abdominal surgery. She is noted to have appendectomy, cholecystectomy in the past as well as a hysterectomy. The patient had an adhesive obstruction and adhesive pain as well. When I saw her in the office 3 days ago she was having hypogastric pain and on exam her abdomen was benign. There were scars that were well healed. Her bowel sounds were good and she had a marked fecal impaction noted on rectal examination. I had recommended a gentle clean-out with a MiraLAX lavage. The patient told me that she took a couple doses but she did not take as many as I had advised and that last evening she had the onset of some chills down her legs and knees and then she woke up in the middle of the night drenched with sweat. She was not having significant abdominal pain, nausea or vomiting, diarrhea or rectal bleeding, but she called her medical doctor who instructed her to come to the hospital. The patient recently also was having some chest findings worked up on a CT scan. The patient tells me that she was concerned with the finding of the diaphoresis, fevers and chills, which worsened this morning, and therefore she was admitted for evaluation. The patient has no real additional history with the present illness. PAST MEDICAL/SURGICAL HISTORY: Extensive, includes chronic atrial fibrillation on Coumadin, hypertension, hyperlipidemia, atherosclerotic coronary artery disease status post stents and pacemaker. She has a history of hypothyroidism, diverticular disease, recurrent UTIs. She has had, as noted, multiple surgeries including appendectomy, tonsils and adenoids, open cholecystectomy, pacemaker placement and a hysterectomy. ALLERGIES: The patient is noted to be allergic to ERYTHROMYCIN. HABITS: She does not smoke or drink at the present time. MEDICATIONS: Include Synthroid, Coumadin, Xalatan eye drops, Cozaar, simvastatin, amlodipine, Ecotrin, MiraLAX, vitamin D, vitamin D3, aspirin, dorzolamide, metoprolol. PHYSICAL EXAMINATION: General: Currently the patient is sitting up. She is in the solarium. She is moving about easily. Skin: Cool. Vital Signs: She is afebrile. Vital signs are stable and normal. HEENT: Her sclerae are anicteric. Neck: Supple. Lungs: Clear. Heart: Irregular. Abdomen: Bowel sounds are quite active. The abdomen is soft. Has scars that are well-healed. There are no masses, rebound or guarding. There is no tenderness to deep palpation. Rectal: Today I deferred the rectal because she is in the solarium. STUDIES: She had a CT scan of the abdomen and pelvis on admission that did not reveal any acute findings. It is noted she is status post cholecystectomy with air in the biliary tree which would be expected, as well as intrahepatic and extrahepatic biliary ductal dilatation. She has a large hiatal hernia. There are no acute findings. There is diverticulosis without evidence of diverticulitis. In addition, the patient has a normal white count of 5, a hemoglobin of 12.7, hematocrit 38.2, MCV of 94. She has 163,000 platelets. Her chemistries are all within normal limits. Her alkaline phosphatase is 218 with a total protein of 7.4 and an albumin 2.9. TSH is 6.67. IMPRESSION: It is my impression that the patient is an 87-year-old woman with multiple medical problems, multiple gastrointestinal issues over the years, who has been followed by Dr. Caputo for constipation as well as diverticular disease, ischemic colitis, colonic polyps, adhesive bowel disease. I had seen her in the office 3 days ago for a fecal impaction and some hypogastric pain. She now comes in with unexplained diaphoresis, fevers, and chills without significant abdominal complaints. After she received the CT scan with oral contrast, she had an explosion, she says, of bowel activity and she feels significantly improved. Her abdominal exam at the current time is unremarkable. Her white count is normal. I do not think there are any acute gastrointestinal findings at this time and we would also defer any acute intervention. The patient has underlying biliary ductal dilatation, most likely to the fact that it sounds like she has had an extensive prior open cholecystectomy and therefore she probably has ductal dilatation as a result of that, which certainly can be seen. There do not appear to be any acute biliary findings nor any complaints of such, so I would recommend increasing water, fiber and MiraLAX 17 g twice a day. It seems like her thyroid medication may need to be adjusted as her TSH is 6.67. The patient can follow up [facility] as an outpatient and is GI-cleared for discharge as long as she continues to tolerate her diet. SHAHEEN MENDOZA M.D. ABIGAIL/[id number]
[2017-11-07 09:38] LABS: BASO % 1.5 % (0-2.0); EOS % 5.8 % (0-4.5); HEMATOCRIT 38.9 % (32.4-45.2); HEMOGLOBIN 12.8 GM/dL (10.7-15.3); LYMPH % 19.3 % (8-40); MCH 30.9 pg (25.7-33.7); MEAN CELL VOLUME 93.9 fl (80-96); MONO % 16.8 % (3.8-10.2); NEUT % 56.6 % (42.8-82.8); PLATELET COUNT 181 K/MM3 (134-434); RBC 4.14 M/mm3 (3.60-5.2); RDW 13.4 % (11.6-15.6); WHITE BLOOD COUNT 5.3 K/mm3 (4.0-10.0)
[2017-11-07] MEDS ORDERED: PT OWN MED DRAWER 7, Y5N ONE ×4 (10:21→22:31)
[2017-11-07] MEDS: BRIMONIDINE TARTRATE 0.2% OPHTHALMIC 5 ML BOTTLE OU SCH ×2 (10:24→21:55)
[2017-11-07] MEDS: POLYETHYLENE GLYCOL 3350 119 GM BTL PO SCH (10:25)
[2017-11-07] MEDS: CEFTRIAXONE 1 G/50 ML PREMIX 50 ML IVPB SCH (10:25)
[2017-11-07] MEDS: ASPIRIN 81 MG CHEWABLE TABLETS PO SCH (10:25)
[2017-11-07] MEDS: LOSARTAN POTASSIUM 50 MG TABLET (FP) PO SCH ×2 (10:25→21:55)
[2017-11-07] MEDS: amLODIPine BESYLATE 5 MG TABLET (FP) PO SCH (10:26)
[2017-11-07] MEDS: METOPROLOL SUCCINATE 100 MG TAB.SR.24H (FP) PO SCH (10:26)
[2017-11-07] MEDS: TIMOLOL 0.5% OPHTHALMIC SOL 5 ML BOTTLE OU SCH ×2 (10:26→21:55)
[2017-11-07] MEDS: CHOLECALCIFEROL (VITAMIN D3) 400 UNIT TABLET (FP) PO SCH (10:28)
--- NOTE | 2017-11-07 13:50 | PN ---
Progress Note, Physician History of Present Illness: Abdominal pain resolving after large bowel movement, has not recurred. - Current Medication List Current Medications: Active Medications Amlodipine Besylate (Norvasc -) 5 mg PO DAILY [facility] Last Admin: 11/07/17 10:26 Dose: 5 mg Aspirin (Asa -) 81 mg PO DAILY [facility] Last Admin: 11/07/17 10:25 Dose: 81 mg Atorvastatin Calcium (Lipitor -) 10 mg PO HS [facility] Last Admin: 11/06/17 21:41 Dose: 10 mg Brimonidine Tartrate (Alphagan 0.2% -) 1 drop OU BID [facility] Last Admin: 11/07/17 10:24 Dose: 1 drop Cholecalciferol (Vitamin D3 -) 400 unit PO DAILY [facility] Last Admin: 11/07/17 10:28 Dose: 400 unit CEFTRIAXONE 1 G/50 ML PREMIX (Ceftriaxone 1 Gm-D5w Bag) 50 mls @ 100 mls/hr IVPB DAILY [facility] Last Admin: 11/07/17 10:25 Dose: 100 mls/hr Latanoprost (Xalatan 0.005% Eye Drops -) 1 drop OU [facility] Last Admin: 11/06/17 21:38 Dose: 1 drop Levothyroxine Sodium (Synthroid -) 50 mcg PO SuTuThSa@0700 [facility] Last Admin: 11/06/17 07:30 Dose: 50 mcg Levothyroxine Sodium (Synthroid -) 75 mcg PO MoWeFr@0700 [facility] Last Admin: 11/07/17 06:10 Dose: 75 mcg Losartan Potassium (Cozaar -) 50 mg PO BID [facility] Last Admin: 11/07/17 10:25 Dose: 50 mg Metoprolol Succinate (Toprol Xl -) 100 mg PO DAILY [facility] Last Admin: 11/07/17 10:26 Dose: 100 mg Non-Formulary Medication (Methenamine Hippurate) 2 gm PO BID [facility] Polyethylene Glycol (Miralax (For Daily Use) -) 17 gm PO DAILY [facility] Last Admin: 11/07/17 10:25 Dose: 17 gm Timolol Maleate (Timoptic 0.5%) 1 drop OU BID [facility] Last Admin: 11/07/17 10:26 Dose: 1 drop Warfarin Sodium (Coumadin -) 1 mg PO DAILY@1800 [facility] Last Admin: 11/06/17 18:24 Dose: 1 mg - Objective Vital Signs: Vital Signs Temperature 97.4 F L 11/07/17 10:00 Pulse Rate 72 11/07/17 10:00 Respiratory Rate 20 11/07/17 10:00 Blood Pressure 120/63 11/07/17 10:00 O2 Sat by Pulse Oximetry (%) 96 11/06/17 21:00 Constitutional: Yes: No Distress, Calm, Thin Neck: Yes: Supple Cardiovascular: Yes: Regular Rate and Rhythm, Murmur (2/6 SM) Respiratory: Yes: Regular, CTA Bilaterally Gastrointestinal: Yes: Normal Bowel Sounds, Soft Edema: No Labs: CBC, BMP 11/07/17 08:30 11/07/17 07:00 INR, PTT INR 2.07 (0.82-1.09) H 11/07/17 07:00 Problem List - Problems (1) Abdominal pain Code(s): R10.9 - UNSPECIFIED ABDOMINAL PAIN Qualifiers: Abdominal location: left lower quadrant Qualified Code(s): R10.32 - Left lower quadrant pain (2) Dilated cbd, acquired Code(s): K83.8 - OTHER SPECIFIED DISEASES OF BILIARY TRACT (3) History of pacemaker Code(s): Z95.0 - PRESENCE OF CARDIAC PACEMAKER (4) Hyperlipidemia Code(s): E78.5 - HYPERLIPIDEMIA, UNSPECIFIED Qualifiers: Hyperlipidemia type: pure hypercholesterolemia Qualified Code(s): E78.00 - Pure hypercholesterolemia, unspecified (5) Hypertension Code(s): I10 - ESSENTIAL (PRIMARY) HYPERTENSION Qualifiers: Hypertension type: essential hypertension Qualified Code(s): I10 - Essential (primary) hypertension (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 Code(s): I11.9 - HYPERTENSIVE HEART DISEASE WITHOUT HEART FAILURE (7) Hypothyroidism Code(s): E03.9 - HYPOTHYROIDISM, UNSPECIFIED Qualifiers: Hypothyroidism type: unspecified Qualified Code(s): E03.9 - Hypothyroidism , unspecified (8) Moderate aortic valve stenosis Code(s): I35.0 - NONRHEUMATIC AORTIC (VALVE) STENOSIS (9) Neurocardiogenic syncope Code(s): R55 - SYNCOPE AND COLLAPSE (10) Paroxysmal atrial fibrillation Code(s): I48.0 - PAROXYSMAL ATRIAL FIBRILLATION (11) Urinary tract infection Code(s): N39.0 - URINARY TRACT INFECTION, SITE NOT SPECIFIED Qualifiers: Urinary tract infection type: site unspecified (12) Coronary artery disease Code(s): I25.10 - ATHSCL HEART DISEASE OF [place] CORONARY ARTERY W/O ANG PCTRS Qualifiers: Coronary Disease-Associated Artery/Lesion type: [place] artery [place] vs. transplanted heart: [place] heart Associated angina: without angina Qualified Code(s): I25.10 - Atherosclerotic heart disease of [place] coronary artery without angina pectoris (13) Fecal impaction of colon Code(s): K56.41 - FECAL IMPACTION Assessment/Plan 1. Resloved abd pain c/w fecal impaction, postcholecystectomy bile duct dilatation ? retained stones 2. H/o ERCP and sphincterotomy for choledocholithiasis 3. 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 Diastolic dysfunction with class 0-I NYHA classification LV failure, euvolemic 6. Moderate aortic stenosis 7. Paroxysmal atrial fibrillation currently in sinus rhythm with therapeutic INR 8. HTN/HCVD 9. Hyperlipidemia 10. Hypothyroidism 11. UTI PLAN: 1. Complete abx course per C&S 2. Continue losartan 50 bid, Lipitor 10 qhs, Norvasc 5 qd, Toprol XL 100 qd, Protonix 40 qd, ASA 81 qd 3. Coumadin per INR 4. Dose Synthroid per TSH 5. GI input appreciated for eval of postcholecystectomy bile duct diltatation
[2017-11-07] MEDS: WARFARIN NA 1 MG TABLET (FP) PO SCH (17:05)
[2017-11-07] MEDS: ATORVASTATIN CA 10 MG TABLET (FP) PO SCH (21:55)
[2017-11-07] MEDS: LATANOPROST 0.005% OPHTH SOLN 2.5ML BOTTLE OU SCH (21:56)
[2017-11-08] MEDS: LEVOTHYROXINE NA 50 MCG TABLET (FP) PO SCH (06:38)
[2017-11-08] MEDS ORDERED: PT OWN MED DRAWER 7, Y5N ONE ×2 (10:10→10:30)
[2017-11-08] MEDS: POLYETHYLENE GLYCOL 3350 119 GM BTL PO SCH ×2 (10:23→21:13)
[2017-11-08] MEDS: ASPIRIN 81 MG CHEWABLE TABLETS PO SCH (10:23)
[2017-11-08] MEDS: amLODIPine BESYLATE 5 MG TABLET (FP) PO SCH (10:23)
[2017-11-08] MEDS: METOPROLOL SUCCINATE 100 MG TAB.SR.24H (FP) PO SCH (10:23)
[2017-11-08] MEDS: CEFTRIAXONE 1 G/50 ML PREMIX 50 ML IVPB SCH (10:23)
[2017-11-08] MEDS: LOSARTAN POTASSIUM 50 MG TABLET (FP) PO SCH ×2 (10:23→21:13)
[2017-11-08] MEDS: CHOLECALCIFEROL (VITAMIN D3) 400 UNIT TABLET (FP) PO SCH (10:24)
[2017-11-08] MEDS: BRIMONIDINE TARTRATE 0.2% OPHTHALMIC 5 ML BOTTLE OU SCH ×2 (10:32→21:13)
[2017-11-08] MEDS: TIMOLOL 0.5% OPHTHALMIC SOL 5 ML BOTTLE OU SCH ×2 (10:32→21:14)
--- NOTE | 2017-11-08 11:31 | PN ---
Progress Note, Physician Chief Complaint: Events noted Less abdominal pain and appears comfortable this am History of Present Illness: Patient was seen and examined. Awake and alert. Chart was reviewed Denies chest pain, SOB or palpitations - Current Medication List Current Medications: Active Medications Amlodipine Besylate (Norvasc -) 5 mg PO DAILY [facility] Last Admin: 11/08/17 10:23 Dose: 5 mg Aspirin (Asa -) 81 mg PO DAILY [facility] Last Admin: 11/08/17 10:23 Dose: 81 mg Atorvastatin Calcium (Lipitor -) 10 mg PO HS [facility] Last Admin: 11/07/17 21:55 Dose: 10 mg Brimonidine Tartrate (Alphagan 0.2% -) 1 drop OU BID [facility] Last Admin: 11/08/17 10:32 Dose: 1 drop Cholecalciferol (Vitamin D3 -) 400 unit PO DAILY [facility] Last Admin: 11/08/17 10:24 Dose: 400 unit CEFTRIAXONE 1 G/50 ML PREMIX (Ceftriaxone 1 Gm-D5w Bag) 50 mls @ 100 mls/hr IVPB DAILY [facility] Last Admin: 11/08/17 10:23 Dose: 100 mls/hr Latanoprost (Xalatan 0.005% Eye Drops -) 1 drop OU HS [facility] Last Admin: 11/07/17 21:56 Dose: 1 drop Levothyroxine Sodium (Synthroid -) 50 mcg PO SuTuThSa@0700 [facility] Last Admin: 11/08/17 06:38 Dose: 50 mcg Levothyroxine Sodium (Synthroid -) 75 mcg PO MoWeFr@0700 [facility] Last Admin: 11/07/17 06:10 Dose: 75 mcg Losartan Potassium (Cozaar -) 50 mg PO BID [facility] Last Admin: 11/08/17 10:23 Dose: 50 mg Metoprolol Succinate (Toprol Xl -) 100 mg PO DAILY [facility] Last Admin: 11/08/17 10:23 Dose: 100 mg Non-Formulary Medication (Methenamine Hippurate) 2 gm PO BID [facility] Polyethylene Glycol (Miralax (For Daily Use) -) 17 gm PO DAILY [facility] Last Admin: 11/08/17 10:23 Dose: 17 gm Timolol Maleate (Timoptic 0.5%) 1 drop OU BID [facility] Last Admin: 11/08/17 10:32 Dose: 1 drop Warfarin Sodium (Coumadin -) 1 mg PO DAILY@1800 [facility] Last Admin: 11/07/17 17:05 Dose: 1 mg - Objective Vital Signs: Vital Signs Temperature 98 F 11/07/17 22:00 Pulse Rate 70 11/07/17 22:00 Respiratory Rate 20 11/07/17 22:00 Blood Pressure 113/67 11/07/17 22:00 O2 Sat by Pulse Oximetry (%) 97 11/07/17 09:00 Eyes: Yes: PERRL HENT: Yes: Atraumatic Neck: Yes: Supple Cardiovascular: Yes: Regular Rate and Rhythm, Murmur (3/6 ELIZABETH right intercostal space), S1, S2 Respiratory: Yes: CTA Bilaterally Gastrointestinal: Yes: Normal Bowel Sounds, Soft. No: Tenderness Edema: No Labs: CBC, BMP 11/07/17 08:30 11/07/17 07:00 INR, PTT INR 2.07 (0.82-1.09) H 11/07/17 07:00 Problem List - Problems (1) Abdominal pain Code(s): R10.9 - UNSPECIFIED ABDOMINAL PAIN Qualifiers: Abdominal location: left lower quadrant Qualified Code(s): R10.32 - Left lower quadrant pain (2) Coronary artery disease Code(s): I25.10 - ATHSCL HEART DISEASE OF [place] CORONARY ARTERY W/O ANG PCTRS Qualifiers: Coronary Disease-Associated Artery/Lesion type: [place] artery [place] vs. transplanted heart: [place] heart Associated angina: without angina Qualified Code(s): I25.10 - Atherosclerotic heart disease of [place] coronary artery without angina pectoris (3) Pacemaker Code(s): Z95.0 - PRESENCE OF CARDIAC PACEMAKER (4) Bile duct calculus Code(s): K80.50 - CALCULUS OF BILE DUCT W/O CHOLANGITIS OR CHOLECYST W/O OBST Qualifiers: Cholecystitis presence: without cholecystitis Biliary obstruction: with biliary obstruction Qualified Code(s): K80.51 - Calculus of bile duct without cholangitis or cholecystitis with obstruction (5) Dilated cbd, acquired Code(s): K83.8 - OTHER SPECIFIED DISEASES OF BILIARY TRACT (6) Hyperlipidemia Code(s): E78.5 - HYPERLIPIDEMIA, UNSPECIFIED Qualifiers: Hyperlipidemia type: pure hypercholesterolemia Qualified Code(s): E78.00 - Pure hypercholesterolemia, unspecified (7) Hypertension Code(s): I10 - ESSENTIAL (PRIMARY) HYPERTENSION Qualifiers: Hypertension type: essential hypertension Qualified Code(s): I10 - Essential (primary) hypertension (8) Hypothyroidism Code(s): E03.9 - HYPOTHYROIDISM, UNSPECIFIED Qualifiers: Hypothyroidism type: unspecified Qualified Code(s): E03.9 - Hypothyroidism , unspecified (9) Moderate aortic valve stenosis Code(s): I35.0 - NONRHEUMATIC AORTIC (VALVE) STENOSIS (10) Neurocardiogenic syncope Code(s): R55 - SYNCOPE AND COLLAPSE (11) Paroxysmal atrial fibrillation Code(s): I48.0 - PAROXYSMAL ATRIAL FIBRILLATION (12) Urinary tract infection Code(s): N39.0 - URINARY TRACT INFECTION, SITE NOT SPECIFIED Qualifiers: Urinary tract infection type: site unspecified Assessment/Plan 1. Abdominal pain c/w retained stone post cholecystectomy bile duct dilatation and previous history of ERCP and sphincterotomy 2. 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 CAD angina pectoris 4. Diastolic dysfunction with class 0-I NYHA classification LV failure, euvolemic 5. Moderate aortic valve stenosis 6. Paroxysmal atrial fibrillation currently in sinus rhythm 7. HTN/HCVD 8. Hyperlipidemia 9. Hypothyroidism 10. UTI PLAN: 1. Complete antibiotic course 2. Continue Losartan 50 bid, Lipitor 10 qhs, Norvasc 5 qd, Toprol XL 100 qd and ASA 81 qd 3. Coumadin per INR unless further GI intervention is planned 4. Thyroid replacement therapy 5. GI input to follow Alejandro Elise MD
--- NOTE | 2017-11-08 12:48 | PN ---
Progress Note, Physician Chief Complaint: informed by staff GI dr Peraza advised to keep pt in H for possible ERCP coumadin stopped IV ATB continued pt agreed with plan - Current Medication List Current Medications: Active Medications Amlodipine Besylate (Norvasc -) 5 mg PO DAILY [facility] Last Admin: 11/08/17 10:23 Dose: 5 mg Aspirin (Asa -) 81 mg PO DAILY [facility] Last Admin: 11/08/17 10:23 Dose: 81 mg Atorvastatin Calcium (Lipitor -) 10 mg PO HS [facility] Last Admin: 11/07/17 21:55 Dose: 10 mg Brimonidine Tartrate (Alphagan 0.2% -) 1 drop OU BID [facility] Last Admin: 11/08/17 10:32 Dose: 1 drop Cholecalciferol (Vitamin D3 -) 400 unit PO DAILY [facility] Last Admin: 11/08/17 10:24 Dose: 400 unit CEFTRIAXONE 1 G/50 ML PREMIX (Ceftriaxone 1 Gm-D5w Bag) 50 mls @ 100 mls/hr IVPB DAILY [facility] Last Admin: 11/08/17 10:23 Dose: 100 mls/hr Latanoprost (Xalatan 0.005% Eye Drops -) 1 drop OU HS [facility] Last Admin: 11/07/17 21:56 Dose: 1 drop Levothyroxine Sodium (Synthroid -) 50 mcg PO SuTuThSa@0700 [facility] Last Admin: 11/08/17 06:38 Dose: 50 mcg Levothyroxine Sodium (Synthroid -) 75 mcg PO MoWeFr@0700 [facility] Last Admin: 11/07/17 06:10 Dose: 75 mcg Losartan Potassium (Cozaar -) 50 mg PO BID [facility] Last Admin: 11/08/17 10:23 Dose: 50 mg Metoprolol Succinate (Toprol Xl -) 100 mg PO DAILY [facility] Last Admin: 11/08/17 10:23 Dose: 100 mg Non-Formulary Medication (Methenamine Hippurate) 2 gm PO BID [facility] Polyethylene Glycol (Miralax (For Daily Use) -) 17 gm PO DAILY [facility] Last Admin: 11/08/17 10:23 Dose: 17 gm Timolol Maleate (Timoptic 0.5%) 1 drop OU BID [facility] Last Admin: 11/08/17 10:32 Dose: 1 drop - Objective Vital Signs: Vital Signs Temperature 98 F 11/07/17 22:00 Pulse Rate 70 11/07/17 22:00 Respiratory Rate 20 11/07/17 22:00 Blood Pressure 113/67 11/07/17 22:00 O2 Sat by Pulse Oximetry (%) 97 11/07/17 09:00 Constitutional: Yes: No Distress, Calm Eyes: Yes: Conjunctiva Clear HENT: Yes: Atraumatic Neck: Yes: Supple Cardiovascular: Yes: Regular Rate and Rhythm Respiratory: Yes: CTA Bilaterally Gastrointestinal: Yes: Soft. No: Distention, Tenderness Genitourinary: No: CVA Tenderness - Left, CVA Tenderness - Right Musculoskeletal: No: Joint Stiffness, Joint Swelling Extremities: No: Cold, Cool, Cyanosis Edema: No Integumentary: No: Rash, Venous Stasis Changes Neurological: Yes: WNL, Alert, Oriented ...Motor Strength: WNL Psychiatric: Yes: WNL, Alert, Oriented. No: Agitated, Suicidal Ideation Labs: CBC, BMP 11/07/17 08:30 11/07/17 07:00 INR, PTT INR 2.07 (0.82-1.09) H 11/07/17 07:00 - ....Imaging Other: Report Reviewed Assessment/Plan The patient is a 87 year old female, with a significant past medical history of Atrial fibrillation (on Coumadin), HTN, HLD, CAD s/p stents and pacemaker, Hypothyroidism, Diverticulitis, CBD stone extracted via ERCP 10/29; recurrent UTIs who presents to the emergency department with abdominal pain. IV ATB GI f/u UA UCx r/o UTI d/w pt and staff falls decubs PFX d/w H staff
--- NOTE | 2017-11-08 18:35 | PN ---
GI Progress Note Subjective: GI NOte: After interviewing Chyna it appears that she has two types of pain. The lower pain suggests intestinal colic due fecal impaction/ constipation. The chest pain with rigors and night sweats is much more suggestive of biliary colic which is supported by her sonogram reading, bile duct dilation and significant alkaline phosphatase rise. I have therefore discussed the possible need for a repeat ERCP as MRCP is not possible with a PPM. I have discuissed ERCP in dteail including informing her again of the potential for perforation and hemorrhage and multiorgan failure, pain and vomiting that can arise as a result of ERCP induced pancreaittis. - Objective Vital Signs: Vital Signs Temperature 98.7 F 11/08/17 17:31 Pulse Rate 67 11/08/17 17:31 Respiratory Rate 20 11/08/17 17:31 Blood Pressure 121/64 11/08/17 17:31 O2 Sat by Pulse Oximetry (%) 97 11/08/17 09:00 CBC,CMP WBC 5.3 K/mm3 (4.0-10.0) 11/07/17 08:30 Corrected WBC (auto) [employer] 11/07/17 07:30 RBC 4.14 M/mm3 (3.60-5.2) 11/07/17 08:30 Hgb 12.8 GM/dL (10.7-15.3) 11/07/17 08:30 Hct 38.9 % (32.4-45.2) 11/07/17 08:30 MCV 93.9 fl (80-96) 11/07/17 08:30 MCH 30.9 pg (25.7-33.7) 11/07/17 08:30 MCHC 33.0 g/dl (32.0-36.0) 11/07/17 08:30 RDW 13.4 % (11.6-15.6) 11/07/17 08:30 Plt Count 181 K/MM3 (134-434) 11/07/17 08:30 MPV 9.0 fl (7.5-11.1) 11/07/17 08:30 Neutrophils % 56.6 % (42.8-82.8) 11/07/17 08:30 Lymphocytes % 19.3 % (8-40) 11/07/17 08:30 Monocytes % 16.8 % (3.8-10.2) H 11/07/17 08:30 Eosinophils % 5.8 % (0-4.5) H 11/07/17 08:30 Basophils % 1.5 % (0-2.0) 11/07/17 08:30 Nucleated RBC % [employer] 11/07/17 07:30 Platelet Estimate [employer] 11/07/17 07:30 Platelet Comment [employer] 11/07/17 07:30 Sodium 140 mmol/L (136-145) 11/07/17 07:00 Potassium 4.1 mmol/L (3.5-5.1) 11/07/17 07:00 Chloride 106 mmol/L (98-107) 11/07/17 07:00 Carbon Dioxide 24 mmol/L (21-32) 11/07/17 07:00 Anion Gap 10 (8-16) 11/07/17 07:00 BUN 11 mg/dL (7-18) 11/07/17 07:00 Creatinine 0.6 mg/dL (0.55-1.02) 11/07/17 07:00 Creat Clearance w eGFR > 60 (>60) 11/06/17 06:50 Random Glucose 81 mg/dL (74-106) 11/07/17 07:00 Calcium 9.1 mg/dL (8.5-10.1) 11/07/17 07:00 Magnesium 2.4 mg/dL (1.8-2.4) 11/05/17 13:00 Total Bilirubin 0.4 mg/dL (0.2-1.0) D 11/06/17 06:50 AST 27 U/L (15-37) 11/06/17 06:50 ALT 39 U/L (12-78) 11/06/17 06:50 Alkaline Phosphatase 218 U/L (45-117) H 11/06/17 06:50 Total Protein 7.4 g/dl (6.4-8.2) 11/06/17 06:50 Albumin 2.9 g/dl (3.4-5.0) L 11/06/17 06:50 Lipase 146 U/L (73-393) 11/05/17 13:00 TSH 6.67 uIU/ml (0.358-3.74) H D 11/06/17 06:50 Current Medications Generic Name Dose Route Start Last Admin Trade Name Freq PRMarlon Reason Stop Dose Admin Amlodipine Besylate 5 mg 11/06/17 10:00 11/08/17 10:23 Norvasc - PO 5 mg DAILY [facility] Administration Aspirin 81 mg 11/06/17 10:00 11/08/17 10:23 Asa - PO 81 mg DAILY [facility] Administration Atorvastatin Calcium 10 mg 11/06/17 22:00 11/07/17 21:55 Lipitor - PO 10 mg HS [facility] Administration Brimonidine Tartrate 1 drop 11/06/17 22:00 11/08/17 10:32 Alphagan 0.2% - OU 1 drop BID [facility] Administration Cholecalciferol 400 unit 11/06/17 10:00 11/08/17 10:24 Vitamin D3 - PO 400 unit DAILY [facility] Administration CEFTRIAXONE 1 G/50 ML PREMIX 50 mls @ 100 mls/hr 11/06/17 10:00 11/08/17 10: 23 Ceftriaxone 1 Gm-D5w Bag IVPB 100 mls/hr DAILY [facility] Administration Latanoprost 1 drop 11/06/17 22:00 11/07/17 21:56 Xalatan 0.005% Eye Drops - OU 1 drop HS [facility] Administration Levothyroxine Sodium 50 mcg 11/06/17 07:00 11/08/17 06:38 Synthroid - PO 50 mcg SuTuThSa@0700 [facility] Administration Levothyroxine Sodium 75 mcg 11/07/17 07:00 11/07/17 06:10 Synthroid - PO 75 mcg MoWeFr@0700 [facility] Administration Losartan Potassium 50 mg 11/06/17 22:00 11/08/17 10:23 Cozaar - PO 50 mg BID [facility] Administration Metoprolol Succinate 100 mg 11/06/17 10:00 11/08/17 10:23 Toprol Xl - PO 100 mg DAILY [facility] Administration Non-Formulary Medication 2 gm 11/06/17 10:00 Methenamine Hippurate PO BID [facility] Polyethylene Glycol 17 gm 11/06/17 10:00 11/08/17 10:23 Miralax (For Daily Use) - PO 17 gm DAILY [facility] Administration Timolol Maleate 1 drop 11/06/17 22:00 11/08/17 10:32 Timoptic 0.5% OU 1 drop BID [facility] Administration Constitutional: Calm Cardiovascular: Yes: Regular Rate and Rhythm (left PPM), Murmur (2/6 ELIZABETH) Gastrointestinal Inspection: Yes: Distention ...Palpate: Yes: Soft, Tenderness (mild suprapubic tenderness, no periotneal signs) Labs: CBC, BMP 11/07/17 08:30 11/07/17 07:00 INR, PTT INR 2.07 (0.82-1.09) H 11/07/17 07:00 Laboratory Tests 12/16/16 03/24/17 03/26/17 22:31 15:12 05:40 PT with INR INR Alkaline Phosphatase 103 129 H 112 Total Bilirubin AST ALT Lipase 11/05/17 11/06/17 11/07/17 13:00 06:50 07:00 PT with INR 23.40 H INR 2.07 H Alkaline Phosphatase 239 H D 218 H Total Bilirubin 0.4 D AST 27 ALT 39 Lipase 146 Problem List - Problems (1) Colic, biliary Assessment/Plan: Suspect recurrent CBD stones despite cholecystectomy and sphincterotomy. I have scheduled the ERCP for 11/11 to allow warfarin to wear off and to follow alkaline phosphatase response to Actigall. If her alkaline phosphatase improves and symptoms remit then may defer ERCP. Informed consent has been obtained. Already receiving Ceftriaxone. Code(s): K80.50 - CALCULUS OF BILE DUCT W/O CHOLANGITIS OR CHOLECYST W/O OBST (2) Constipation Assessment/Plan: Despite large BM after CT contrast Chyna had not moved her bowels for 2 days until she had a very small BM today. Will give Miralax to lavage colon clear of impacted feces. Code(s): K59.00 - CONSTIPATION, UNSPECIFIED Qualifiers: Constipation type: unspecified constipation type Qualified Code(s): K59.00 - Constipation, unspecified
[2017-11-08] MEDS: URSODIOL 300 MG CAPSULE PO SCH (21:12)
[2017-11-08] MEDS: ATORVASTATIN CA 10 MG TABLET (FP) PO SCH (21:13)
[2017-11-08] MEDS: LATANOPROST 0.005% OPHTH SOLN 2.5ML BOTTLE OU SCH (21:14)
[2017-11-09] MEDS: POLYETHYLENE GLYCOL 3350 119 GM BTL PO SCH ×3 (06:35→21:25)
[2017-11-09] MEDS: LEVOTHYROXINE NA 75 MCG TABLET (FP) PO SCH (06:35)
[2017-11-09] MEDS: HEPARIN NA (PORCINE) 5,000 UNITS/ML 1ML VIAL SQ SCH ×3 (06:35→21:24)
[2017-11-09 09:04] LABS: INR 1.33 (0.82-1.09)
[2017-11-09 09:06] LABS: ALBUMIN 2.8 g/dl (3.4-5.0); ALK PHOS 160 U/L (45-117); BILIRUBIN,DIRECT < 0.2 mg/dL (0.0-0.2); BILIRUBIN,TOTAL 0.3 mg/dL (0.2-1.0); SGOT/AST 15 U/L (15-37); SGPT/ALT 24 U/L (12-78); TOT PROT 7.2 g/dl (6.4-8.2)
[2017-11-09] MEDS ORDERED: PT OWN MED DRAWER 7, Y5N ONE ×3 (09:59→21:21)
[2017-11-09] MEDS: CEFTRIAXONE 1 G/50 ML PREMIX 50 ML IVPB SCH (10:03)
[2017-11-09] MEDS: METOPROLOL SUCCINATE 100 MG TAB.SR.24H (FP) PO SCH (10:03)
[2017-11-09] MEDS: LOSARTAN POTASSIUM 50 MG TABLET (FP) PO SCH ×2 (10:03→21:24)
[2017-11-09] MEDS: URSODIOL 300 MG CAPSULE PO SCH ×2 (10:03→21:24)
[2017-11-09] MEDS: CHOLECALCIFEROL (VITAMIN D3) 400 UNIT TABLET (FP) PO SCH (10:04)
[2017-11-09] MEDS: TIMOLOL 0.5% OPHTHALMIC SOL 5 ML BOTTLE OU SCH ×2 (10:04→21:24)
[2017-11-09] MEDS: amLODIPine BESYLATE 5 MG TABLET (FP) PO SCH (10:04)
[2017-11-09] MEDS: BRIMONIDINE TARTRATE 0.2% OPHTHALMIC 5 ML BOTTLE OU SCH ×2 (10:04→21:24)
--- NOTE | 2017-11-09 10:59 | PN ---
Progress Note, Physician History of Present Illness: Abdominal pain resolved after large bowel movement, has not recurred, does have biliary colic symptoms, ambulating without exertional sxs. - Current Medication List Current Medications: Active Medications Amlodipine Besylate (Norvasc -) 5 mg PO DAILY [facility] Last Admin: 11/09/17 10:04 Dose: 5 mg Atorvastatin Calcium (Lipitor -) 10 mg PO HS [facility] Last Admin: 11/08/17 21:13 Dose: 10 mg Brimonidine Tartrate (Alphagan 0.2% -) 1 drop OU BID [facility] Last Admin: 11/09/17 10:04 Dose: 1 drop Cholecalciferol (Vitamin D3 -) 400 unit PO DAILY [facility] Last Admin: 11/09/17 10:04 Dose: 400 unit Heparin Sodium (Porcine) (Heparin -) 5,000 unit SQ TID [facility] Last Admin: 11/09/17 06:35 Dose: 5,000 unit CEFTRIAXONE 1 G/50 ML PREMIX (Ceftriaxone 1 Gm-D5w Bag) 50 mls @ 100 mls/hr IVPB DAILY [facility] Last Admin: 11/09/17 10:03 Dose: 100 mls/hr Latanoprost (Xalatan 0.005% Eye Drops -) 1 drop OU [facility] Last Admin: 11/08/17 21:14 Dose: 1 drop Levothyroxine Sodium (Synthroid -) 50 mcg PO SuTuThSa@0700 [facility] Last Admin: 11/08/17 06:38 Dose: 50 mcg Levothyroxine Sodium (Synthroid -) 75 mcg PO MoWeFr@0700 [facility] Last Admin: 11/09/17 06:35 Dose: 75 mcg Losartan Potassium (Cozaar -) 50 mg PO BID [facility] Last Admin: 11/09/17 10:03 Dose: 50 mg Metoprolol Succinate (Toprol Xl -) 100 mg PO DAILY [facility] Last Admin: 11/09/17 10:03 Dose: 100 mg Non-Formulary Medication (Methenamine Hippurate) 2 gm PO BID [facility] Polyethylene Glycol (Miralax (For Daily Use) -) 17 gm PO TID [facility] Last Admin: 11/09/17 06:35 Dose: 17 gm Timolol Maleate (Timoptic 0.5%) 1 drop OU BID [facility] Last Admin: 11/09/17 10:04 Dose: 1 drop Ursodiol (Actigal -) 300 mg PO BID [facility] Last Admin: 11/09/17 10:03 Dose: 300 mg - Objective Vital Signs: Vital Signs Temperature 98.3 F 11/09/17 06:00 Pulse Rate 72 11/09/17 06:00 Respiratory Rate 20 11/09/17 06:00 Blood Pressure 134/82 11/09/17 06:00 O2 Sat by Pulse Oximetry (%) 97 11/08/17 21:00 Constitutional: Yes: No Distress, Calm, Thin Neck: Yes: Supple Cardiovascular: Yes: Regular Rate and Rhythm Respiratory: Yes: Regular, CTA Bilaterally Gastrointestinal: Yes: Soft, Hypoactive Bowel Sounds Edema: No Labs: CBC, BMP 11/07/17 08:30 11/07/17 07:00 INR, PTT INR 1.33 (0.82-1.09) H D 11/09/17 07:10 Problem List - Problems (1) Abdominal pain Code(s): R10.9 - UNSPECIFIED ABDOMINAL PAIN Qualifiers: Abdominal location: left lower quadrant Qualified Code(s): R10.32 - Left lower quadrant pain (2) Dilated cbd, acquired Code(s): K83.8 - OTHER SPECIFIED DISEASES OF BILIARY TRACT (3) Hyperlipidemia Code(s): E78.5 - HYPERLIPIDEMIA, UNSPECIFIED Qualifiers: Hyperlipidemia type: pure hypercholesterolemia Qualified Code(s): E78.00 - Pure hypercholesterolemia, unspecified (4) Hypertension Code(s): I10 - ESSENTIAL (PRIMARY) HYPERTENSION Qualifiers: Hypertension type: essential hypertension Qualified Code(s): I10 - Essential (primary) hypertension (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 Code(s): I11.9 - HYPERTENSIVE HEART DISEASE WITHOUT HEART FAILURE (6) Hypothyroidism Code(s): E03.9 - HYPOTHYROIDISM, UNSPECIFIED Qualifiers: Hypothyroidism type: unspecified Qualified Code(s): E03.9 - Hypothyroidism , unspecified (7) Moderate aortic valve stenosis Code(s): I35.0 - NONRHEUMATIC AORTIC (VALVE) STENOSIS (8) Neurocardiogenic syncope Code(s): R55 - SYNCOPE AND COLLAPSE (9) Paroxysmal atrial fibrillation Code(s): I48.0 - PAROXYSMAL ATRIAL FIBRILLATION (10) Urinary tract infection Code(s): N39.0 - URINARY TRACT INFECTION, SITE NOT SPECIFIED Qualifiers: Urinary tract infection type: site unspecified (11) Coronary artery disease Code(s): I25.10 - ATHSCL HEART DISEASE OF [place] CORONARY ARTERY W/O ANG PCTRS Qualifiers: Coronary Disease-Associated Artery/Lesion type: [place] artery [place] vs. transplanted heart: [place] heart Associated angina: without angina Qualified Code(s): I25.10 - Atherosclerotic heart disease of [place] coronary artery without angina pectoris (12) Fecal impaction of colon Code(s): K56.41 - FECAL IMPACTION (13) Pacemaker Code(s): Z95.0 - PRESENCE OF CARDIAC PACEMAKER (14) Bile duct calculus Code(s): K80.50 - CALCULUS OF BILE DUCT W/O CHOLANGITIS OR CHOLECYST W/O OBST Qualifiers: Cholecystitis presence: without cholecystitis Biliary obstruction: with biliary obstruction Qualified Code(s): K80.51 - Calculus of bile duct without cholangitis or cholecystitis with obstruction (15) Colic, biliary Code(s): K80.50 - CALCULUS OF BILE DUCT W/O CHOLANGITIS OR CHOLECYST W/O OBST Assessment/Plan 1. Resloved abd pain c/w fecal impaction, retained stones postcholecystectomy with biliary duct dilatation 2. H/o ERCP and sphincterotomy for choledocholithiasis 3. 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 Diastolic dysfunction with class 0-I NYHA classification LV failure, euvolemic 6. Moderate aortic stenosis 7. Paroxysmal atrial fibrillation currently in sinus rhythm with subtherapeutic INR 8. HTN/HCVD 9. Hyperlipidemia 10. Hypothyroidism 11. UTI PLAN: 1. Complete antibiotic course, started on Actigall woth monitor alk phos downtrending 2. Continue Losartan 50 bid, Lipitor 10 qhs, Norvasc 5 qd, and Toprol XL 100 qd 3. Hold Coumadin pre-ERCP and resume once post-procedure hemostasis has been achieved 4. Plan for ERCP 11/11, may proceed from CV-standpoint without further imaging 5. Miralax for fecal impaction 6. DVT prophylaxis
--- NOTE | 2017-11-09 11:02 | PN ---
Progress Note, Physician Chief Complaint: no new c/o; OOB to chair INR coming down; d/w pt risks CVA/MT while OFF coumadin but needs to be stopped in view of upcoming ERCP; pt aware; cardiology f/u - Current Medication List Current Medications: Active Medications Amlodipine Besylate (Norvasc -) 5 mg PO DAILY [facility] Last Admin: 11/09/17 10:04 Dose: 5 mg Atorvastatin Calcium (Lipitor -) 10 mg PO HS [facility] Last Admin: 11/08/17 21:13 Dose: 10 mg Brimonidine Tartrate (Alphagan 0.2% -) 1 drop OU BID [facility] Last Admin: 11/09/17 10:04 Dose: 1 drop Cholecalciferol (Vitamin D3 -) 400 unit PO DAILY [facility] Last Admin: 11/09/17 10:04 Dose: 400 unit Heparin Sodium (Porcine) (Heparin -) 5,000 unit SQ TID [facility] Last Admin: 11/09/17 06:35 Dose: 5,000 unit CEFTRIAXONE 1 G/50 ML PREMIX (Ceftriaxone 1 Gm-D5w Bag) 50 mls @ 100 mls/hr IVPB DAILY [facility] Last Admin: 11/09/17 10:03 Dose: 100 mls/hr Latanoprost (Xalatan 0.005% Eye Drops -) 1 drop OU HS [facility] Last Admin: 11/08/17 21:14 Dose: 1 drop Levothyroxine Sodium (Synthroid -) 50 mcg PO SuTuThSa@0700 [facility] Last Admin: 11/08/17 06:38 Dose: 50 mcg Levothyroxine Sodium (Synthroid -) 75 mcg PO MoWeFr@0700 [facility] Last Admin: 11/09/17 06:35 Dose: 75 mcg Losartan Potassium (Cozaar -) 50 mg PO BID [facility] Last Admin: 11/09/17 10:03 Dose: 50 mg Metoprolol Succinate (Toprol Xl -) 100 mg PO DAILY [facility] Last Admin: 11/09/17 10:03 Dose: 100 mg Non-Formulary Medication (Methenamine Hippurate) 2 gm PO BID [facility] Polyethylene Glycol (Miralax (For Daily Use) -) 17 gm PO TID [facility] Last Admin: 11/09/17 06:35 Dose: 17 gm Timolol Maleate (Timoptic 0.5%) 1 drop OU BID [facility] Last Admin: 11/09/17 10:04 Dose: 1 drop Ursodiol (Actigal -) 300 mg PO BID [facility] Last Admin: 11/09/17 10:03 Dose: 300 mg - Objective Vital Signs: Vital Signs Temperature 98.3 F 11/09/17 06:00 Pulse Rate 72 11/09/17 06:00 Respiratory Rate 20 11/09/17 06:00 Blood Pressure 134/82 11/09/17 06:00 O2 Sat by Pulse Oximetry (%) 97 11/08/17 21:00 Constitutional: Yes: No Distress, Calm Eyes: Yes: Conjunctiva Clear HENT: Yes: Atraumatic Neck: Yes: Supple Cardiovascular: Yes: Regular Rate and Rhythm Respiratory: Yes: CTA Bilaterally Gastrointestinal: Yes: Soft. No: Distention Genitourinary: No: CVA Tenderness - Left, CVA Tenderness - Right Musculoskeletal: No: Joint Stiffness, Joint Swelling Extremities: No: Calf Tenderness, Cold, Cool, Cyanosis Edema: No Integumentary: No: Rash, Venous Stasis Changes Neurological: Yes: WNL, Alert, Oriented ...Motor Strength: WNL Psychiatric: Yes: WNL, Alert, Oriented. No: Agitated, Suicidal Ideation Labs: CBC, BMP 11/07/17 08:30 11/07/17 07:00 INR, PTT INR 1.33 (0.82-1.09) H D 11/09/17 07:10 - ....Imaging Other: Report Reviewed Assessment/Plan The patient is a 87 year old female, with a significant past medical history of Atrial fibrillation (on Coumadin), HTN, HLD, CAD s/p stents and pacemaker, Hypothyroidism, Diverticulitis, CBD stone extracted via ERCP 10/29; recurrent UTIs who presents to the emergency department with abdominal pain. IV ATB GI f/u possible ERCP 11/11 UA UCx r/o UTI d/w pt and staff falls decubs PFX d/w H staff
[2017-11-09] MEDS: ATORVASTATIN CA 10 MG TABLET (FP) PO SCH (21:24)
[2017-11-09] MEDS: LATANOPROST 0.005% OPHTH SOLN 2.5ML BOTTLE OU SCH (21:25)
[2017-11-10] MEDS: HEPARIN NA (PORCINE) 5,000 UNITS/ML 1ML VIAL SQ SCH ×2 (06:27→13:42)
[2017-11-10] MEDS: LEVOTHYROXINE NA 50 MCG TABLET (FP) PO SCH (06:27)
[2017-11-10] MEDS: POLYETHYLENE GLYCOL 3350 119 GM BTL PO SCH ×3 (06:27→21:42)
--- NOTE | 2017-11-10 07:38 | PN ---
Progress Note, Physician Chief Complaint: No new c/o; for ERCP in am; INR 1.3 - Current Medication List Current Medications: Active Medications Amlodipine Besylate (Norvasc -) 5 mg PO DAILY [facility] Last Admin: 11/09/17 10:04 Dose: 5 mg Atorvastatin Calcium (Lipitor -) 10 mg PO HS [facility] Last Admin: 11/09/17 21:24 Dose: 10 mg Brimonidine Tartrate (Alphagan 0.2% -) 1 drop OU BID [facility] Last Admin: 11/09/17 21:24 Dose: 1 drop Cholecalciferol (Vitamin D3 -) 400 unit PO DAILY [facility] Last Admin: 11/09/17 10:04 Dose: 400 unit Heparin Sodium (Porcine) (Heparin -) 5,000 unit SQ TID [facility] Last Admin: 11/10/17 06:27 Dose: 5,000 unit CEFTRIAXONE 1 G/50 ML PREMIX (Ceftriaxone 1 Gm-D5w Bag) 50 mls @ 100 mls/hr IVPB DAILY [facility] Last Admin: 11/09/17 10:03 Dose: 100 mls/hr Latanoprost (Xalatan 0.005% Eye Drops -) 1 drop OU [facility] Last Admin: 11/09/17 21:25 Dose: 1 drop Levothyroxine Sodium (Synthroid -) 50 mcg PO SuTuThSa@0700 [facility] Last Admin: 11/10/17 06:27 Dose: 50 mcg Levothyroxine Sodium (Synthroid -) 75 mcg PO MoWeFr@0700 [facility] Last Admin: 11/09/17 06:35 Dose: 75 mcg Losartan Potassium (Cozaar -) 50 mg PO BID [facility] Last Admin: 11/09/17 21:24 Dose: 50 mg Metoprolol Succinate (Toprol Xl -) 100 mg PO DAILY [facility] Last Admin: 11/09/17 10:03 Dose: 100 mg Non-Formulary Medication (Methenamine Hippurate) 2 gm PO BID [facility] Polyethylene Glycol (Miralax (For Daily Use) -) 17 gm PO TID [facility] Last Admin: 11/10/17 06:27 Dose: 17 gm Timolol Maleate (Timoptic 0.5%) 1 drop OU BID [facility] Last Admin: 11/09/17 21:24 Dose: 1 drop Ursodiol (Actigal -) 300 mg PO BID [facility] Last Admin: 11/09/17 21:24 Dose: 300 mg - Objective Vital Signs: Vital Signs Temperature 98.1 F 11/10/17 06:06 Pulse Rate 71 11/10/17 06:06 Respiratory Rate 18 11/10/17 06:06 Blood Pressure 130/79 11/10/17 06:06 O2 Sat by Pulse Oximetry (%) 97 11/09/17 21:00 Constitutional: Yes: No Distress, Calm Eyes: Yes: Conjunctiva Clear HENT: Yes: Atraumatic Neck: Yes: Supple Cardiovascular: Yes: Regular Rate and Rhythm Respiratory: Yes: CTA Bilaterally Gastrointestinal: Yes: Soft. No: Distention Genitourinary: No: CVA Tenderness - Left, CVA Tenderness - Right Musculoskeletal: No: Joint Stiffness, Joint Swelling Extremities: No: Cold, Cool Edema: No Integumentary: No: Rash, Venous Stasis Changes Neurological: Yes: WNL, Alert, Oriented ...Motor Strength: WNL Psychiatric: Yes: WNL, Alert, Oriented. No: Agitated, Suicidal Ideation Labs: CBC, BMP 11/07/17 08:30 11/07/17 07:00 INR, PTT INR 1.33 (0.82-1.09) H D 11/09/17 07:10 - ....Imaging Other: Report Reviewed Assessment/Plan The patient is a 87 year old female, with a significant past medical history of Atrial fibrillation (on Coumadin), HTN, HLD, CAD s/p stents and pacemaker, Hypothyroidism, Diverticulitis, CBD stone extracted via ERCP 10/29; recurrent UTIs who presents to the emergency department with abdominal pain. IV ATB GI f/u ERCP in am IV ATB/ UTI d/w pt and she agreed with the plan falls decubs PFX d/w H staff
[2017-11-10 08:24] LABS: ALBUMIN 2.7 g/dl (3.4-5.0); INR 1.29 (0.82-1.09); PROTHROMBIN TIME (PATIENT) 14.6 SEC (9.98-11.88)
[2017-11-10 08:28] LABS: ALK PHOS 139 U/L (45-117); BILIRUBIN,DIRECT < 0.2 mg/dL (0.0-0.2); BILIRUBIN,TOTAL 0.4 mg/dL (0.2-1.0); SGOT/AST 12 U/L (15-37); SGPT/ALT 20 U/L (12-78); TOT PROT 6.8 g/dl (6.4-8.2)
[2017-11-10] MEDS: URSODIOL 300 MG CAPSULE PO SCH ×2 (10:35→21:41)
[2017-11-10] MEDS: CEFTRIAXONE 1 G/50 ML PREMIX 50 ML IVPB SCH (10:35)
[2017-11-10] MEDS: BRIMONIDINE TARTRATE 0.2% OPHTHALMIC 5 ML BOTTLE OU SCH ×2 (10:36→21:41)
[2017-11-10] MEDS: LOSARTAN POTASSIUM 50 MG TABLET (FP) PO SCH ×2 (10:37→21:41)
[2017-11-10] MEDS: amLODIPine BESYLATE 5 MG TABLET (FP) PO SCH (10:37)
[2017-11-10] MEDS: METOPROLOL SUCCINATE 100 MG TAB.SR.24H (FP) PO SCH (10:38)
[2017-11-10] MEDS: TIMOLOL 0.5% OPHTHALMIC SOL 5 ML BOTTLE OU SCH ×2 (10:38→21:41)
[2017-11-10] MEDS: CHOLECALCIFEROL (VITAMIN D3) 400 UNIT TABLET (FP) PO SCH (10:39)
--- NOTE | 2017-11-10 10:41 | PN ---
Progress Note, Physician History of Present Illness: Abdominal pain resolved after large bowel movement, has not recurred, biliary colic symptoms also have improved, ambulating without exertional sxs. - Current Medication List Current Medications: Active Medications Amlodipine Besylate (Norvasc -) 5 mg PO DAILY [facility] Last Admin: 11/10/17 10:37 Dose: 5 mg Atorvastatin Calcium (Lipitor -) 10 mg PO HS [facility] Last Admin: 11/09/17 21:24 Dose: 10 mg Brimonidine Tartrate (Alphagan 0.2% -) 1 drop OU BID [facility] Last Admin: 11/10/17 10:36 Dose: 1 drop Cholecalciferol (Vitamin D3 -) 400 unit PO DAILY [facility] Last Admin: 11/10/17 10:39 Dose: 400 unit Heparin Sodium (Porcine) (Heparin -) 5,000 unit SQ TID [facility] Last Admin: 11/10/17 06:27 Dose: 5,000 unit CEFTRIAXONE 1 G/50 ML PREMIX (Ceftriaxone 1 Gm-D5w Bag) 50 mls @ 100 mls/hr IVPB DAILY [facility] Last Admin: 11/10/17 10:35 Dose: 100 mls/hr Latanoprost (Xalatan 0.005% Eye Drops -) 1 drop OU HS [facility] Last Admin: 11/09/17 21:25 Dose: 1 drop Levothyroxine Sodium (Synthroid -) 50 mcg PO SuTuThSa@0700 [facility] Last Admin: 11/10/17 06:27 Dose: 50 mcg Levothyroxine Sodium (Synthroid -) 75 mcg PO MoWeFr@0700 [facility] Last Admin: 11/09/17 06:35 Dose: 75 mcg Losartan Potassium (Cozaar -) 50 mg PO BID [facility] Last Admin: 11/10/17 10:37 Dose: 50 mg Metoprolol Succinate (Toprol Xl -) 100 mg PO DAILY [facility] Last Admin: 11/10/17 10:38 Dose: 100 mg Non-Formulary Medication (Methenamine Hippurate) 2 gm PO BID [facility] Polyethylene Glycol (Miralax (For Daily Use) -) 17 gm PO TID [facility] Last Admin: 11/10/17 06:27 Dose: 17 gm Timolol Maleate (Timoptic 0.5%) 1 drop OU BID [facility] Last Admin: 11/10/17 10:38 Dose: 1 drop Ursodiol (Actigal -) 300 mg PO BID [facility] Last Admin: 11/10/17 10:35 Dose: 300 mg - Objective Vital Signs: Vital Signs Temperature 97.6 F 11/10/17 10:00 Pulse Rate 70 11/10/17 10:00 Respiratory Rate 20 11/10/17 10:00 Blood Pressure 144/73 11/10/17 10:00 O2 Sat by Pulse Oximetry (%) 97 11/09/17 21:00 Constitutional: Yes: No Distress, Calm, Thin Neck: Yes: Supple Cardiovascular: Yes: Regular Rate and Rhythm, Murmur (2/6 SM) Respiratory: Yes: Regular, CTA Bilaterally Gastrointestinal: Yes: Soft, Hypoactive Bowel Sounds Edema: No Labs: CBC, BMP 11/07/17 08:30 11/07/17 07:00 INR, PTT INR 1.29 (0.82-1.09) H 11/10/17 06:24 Problem List - Problems (1) Abdominal pain Code(s): R10.9 - UNSPECIFIED ABDOMINAL PAIN Qualifiers: Abdominal location: left lower quadrant Qualified Code(s): R10.32 - Left lower quadrant pain (2) Dilated cbd, acquired Code(s): K83.8 - OTHER SPECIFIED DISEASES OF BILIARY TRACT (3) Hyperlipidemia Code(s): E78.5 - HYPERLIPIDEMIA, UNSPECIFIED Qualifiers: Hyperlipidemia type: pure hypercholesterolemia Qualified Code(s): E78.00 - Pure hypercholesterolemia, unspecified (4) Hypertension Code(s): I10 - ESSENTIAL (PRIMARY) HYPERTENSION Qualifiers: Hypertension type: essential hypertension Qualified Code(s): I10 - Essential (primary) hypertension (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 Code(s): I11.9 - HYPERTENSIVE HEART DISEASE WITHOUT HEART FAILURE (6) Hypothyroidism Code(s): E03.9 - HYPOTHYROIDISM, UNSPECIFIED Qualifiers: Hypothyroidism type: unspecified Qualified Code(s): E03.9 - Hypothyroidism , unspecified (7) Moderate aortic valve stenosis Code(s): I35.0 - NONRHEUMATIC AORTIC (VALVE) STENOSIS (8) Neurocardiogenic syncope Code(s): R55 - SYNCOPE AND COLLAPSE (9) Paroxysmal atrial fibrillation Code(s): I48.0 - PAROXYSMAL ATRIAL FIBRILLATION (10) Urinary tract infection Code(s): N39.0 - URINARY TRACT INFECTION, SITE NOT SPECIFIED Qualifiers: Urinary tract infection type: site unspecified (11) Coronary artery disease Code(s): I25.10 - ATHSCL HEART DISEASE OF [place] CORONARY ARTERY W/O ANG PCTRS Qualifiers: Coronary Disease-Associated Artery/Lesion type: [place] artery [place] vs. transplanted heart: [place] heart Associated angina: without angina Qualified Code(s): I25.10 - Atherosclerotic heart disease of [place] coronary artery without angina pectoris (12) Fecal impaction of colon Code(s): K56.41 - FECAL IMPACTION (13) Pacemaker Code(s): Z95.0 - PRESENCE OF CARDIAC PACEMAKER (14) Bile duct calculus Code(s): K80.50 - CALCULUS OF BILE DUCT W/O CHOLANGITIS OR CHOLECYST W/O OBST Qualifiers: Cholecystitis presence: without cholecystitis Biliary obstruction: with biliary obstruction Qualified Code(s): K80.51 - Calculus of bile duct without cholangitis or cholecystitis with obstruction (15) Colic, biliary Code(s): K80.50 - CALCULUS OF BILE DUCT W/O CHOLANGITIS OR CHOLECYST W/O OBST Assessment/Plan 1. Resloved abd pain c/w fecal impaction, retained stones postcholecystectomy with biliary duct dilatation 2. H/o ERCP and sphincterotomy for choledocholithiasis 3. 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 Diastolic dysfunction with class 0-I NYHA classification LV failure, euvolemic 6. Moderate aortic stenosis 7. Paroxysmal atrial fibrillation currently in sinus rhythm with subtherapeutic INR 8. HTN/HCVD 9. Hyperlipidemia 10. Hypothyroidism 11. UTI PLAN: 1. Complete antibiotic course, started on Actigall with improvement in cholestatic picture 2. Continue Losartan 50 bid, Lipitor 10 qhs, Norvasc 5 qd, and Toprol XL 100 qd 3. Hold Coumadin pre-ERCP and resume once post-procedure hemostasis has been achieved 4. Tentative plan for ERCP 11/11, may proceed from CV-standpoint without further imaging 5. Miralax for fecal impaction 6. DVT prophylaxis
[2017-11-10] MEDS ORDERED: PT OWN MED DRAWER 7, Y5N ONE (10:45)
--- NOTE | 2017-11-10 20:25 | PN ---
Progress Note (short form) - Note Progress Note: GI NOte: INR normalizing. Should be able to proceed with ERCP tomorrow without administering Vitamin K. I discussed the procedure with Kaley Navarro. Problem List - Problems (1) Colic, biliary Code(s): K80.50 - CALCULUS OF BILE DUCT W/O CHOLANGITIS OR CHOLECYST W/O OBST (2) Constipation Code(s): K59.00 - CONSTIPATION, UNSPECIFIED Qualifiers: Constipation type: unspecified constipation type Qualified Code(s): K59.00 - Constipation, unspecified
[2017-11-10] MEDS: LATANOPROST 0.005% OPHTH SOLN 2.5ML BOTTLE OU SCH (21:41)
[2017-11-10] MEDS: ATORVASTATIN CA 10 MG TABLET (FP) PO SCH (21:41)
[2017-11-11] MEDS: LEVOTHYROXINE NA 75 MCG TABLET (FP) PO SCH (06:17)
[2017-11-11] MEDS: POLYETHYLENE GLYCOL 3350 119 GM BTL PO SCH ×2 (06:18→14:24)
[2017-11-11 08:01] LABS: BASO % 2.5 % (0-2.0); EOS % 8.2 % (0-4.5); HEMATOCRIT 34.7 % (32.4-45.2); HEMOGLOBIN 11.5 GM/dL (10.7-15.3); LYMPH % 28.4 % (8-40); MEAN CELL VOLUME 93.8 fl (80-96); MONO % 13.7 % (3.8-10.2); NEUT % 47.2 % (42.8-82.8); PLATELET COUNT 205 K/MM3 (134-434); RDW 13.2 % (11.6-15.6); WHITE BLOOD COUNT 4.6 K/mm3 (4.0-10.0)
--- NOTE | 2017-11-11 08:05 | PN ---
Progress Note, Physician Chief Complaint: in bed NAD no new co VSS for ERCP today - Current Medication List Current Medications: Active Medications Amlodipine Besylate (Norvasc -) 5 mg PO DAILY [facility] Last Admin: 11/10/17 10:37 Dose: 5 mg Atorvastatin Calcium (Lipitor -) 10 mg PO HS [facility] Last Admin: 11/10/17 21:41 Dose: 10 mg Brimonidine Tartrate (Alphagan 0.2% -) 1 drop OU BID [facility] Last Admin: 11/10/17 21:41 Dose: 1 drop Cholecalciferol (Vitamin D3 -) 400 unit PO DAILY [facility] Last Admin: 11/10/17 10:39 Dose: 400 unit CEFTRIAXONE 1 G/50 ML PREMIX (Ceftriaxone 1 Gm-D5w Bag) 50 mls @ 100 mls/hr IVPB DAILY [facility] Last Admin: 11/10/17 10:35 Dose: 100 mls/hr Latanoprost (Xalatan 0.005% Eye Drops -) 1 drop OU [facility] Last Admin: 11/10/17 21:41 Dose: 1 drop Levothyroxine Sodium (Synthroid -) 50 mcg PO SuTuThSa@0700 [facility] Last Admin: 11/10/17 06:27 Dose: 50 mcg Levothyroxine Sodium (Synthroid -) 75 mcg PO MoWeFr@0700 [facility] Last Admin: 11/11/17 06:17 Dose: 75 mcg Losartan Potassium (Cozaar -) 50 mg PO BID [facility] Last Admin: 11/10/17 21:41 Dose: 50 mg Metoprolol Succinate (Toprol Xl -) 100 mg PO DAILY [facility] Last Admin: 11/10/17 10:38 Dose: 100 mg Non-Formulary Medication (Methenamine Hippurate) 2 gm PO BID [facility] Polyethylene Glycol (Miralax (For Daily Use) -) 17 gm PO TID [facility] Last Admin: 11/11/17 06:18 Dose: Not Given Timolol Maleate (Timoptic 0.5%) 1 drop OU BID [facility] Last Admin: 11/10/17 21:41 Dose: 1 drop Ursodiol (Actigal -) 300 mg PO BID [facility] Last Admin: 11/10/17 21:41 Dose: 300 mg - Objective Vital Signs: Vital Signs Temperature 98.2 F 11/11/17 06:00 Pulse Rate 75 11/11/17 06:00 Respiratory Rate 20 11/11/17 06:00 Blood Pressure 138/83 11/11/17 06:00 O2 Sat by Pulse Oximetry (%) 94 L 11/10/17 21:00 Constitutional: Yes: No Distress, Calm Eyes: Yes: Conjunctiva Clear HENT: Yes: Atraumatic Neck: Yes: Supple Cardiovascular: Yes: Regular Rate and Rhythm Respiratory: Yes: CTA Bilaterally Gastrointestinal: Yes: Soft. No: Distention, Tenderness Genitourinary: No: CVA Tenderness - Left, CVA Tenderness - Right Musculoskeletal: No: Joint Stiffness, Joint Swelling Extremities: No: Cold, Cool, Cyanosis Edema: No Integumentary: No: Rash, Venous Stasis Changes Neurological: Yes: WNL, Alert, Oriented ...Motor Strength: WNL Psychiatric: Yes: WNL, Alert, Oriented. No: Agitated, Suicidal Ideation Labs: INR, PTT INR 1.29 (0.82-1.09) H 11/10/17 06:24 - ....Imaging Other: Report Reviewed Assessment/Plan The patient is a 87 year old female, with a significant past medical history of Atrial fibrillation (on Coumadin), HTN, HLD, CAD s/p stents and pacemaker, Hypothyroidism, Diverticulitis, CBD stone extracted via ERCP 10/29; recurrent UTIs who presents to the emergency department with abdominal pain, CBD stones IV ATB GI f/u for ERCP today d/w pt and she agreed with the plan falls decubs PFX d/w H staff
[2017-11-11 08:19] LABS: INR 1.11 (0.82-1.09); PROTHROMBIN TIME (PATIENT) 12.5 SEC (9.98-11.88)
[2017-11-11 08:33] LABS: ALBUMIN 2.7 g/dl (3.4-5.0); ANION GAP 5 (8-16); BILIRUBIN,DIRECT < 0.2 mg/dL (0.0-0.2); BLOOD UREA NITROGEN 15 mg/dL (7-18); CHLORIDE 105 mmol/L (98-107); CO2 27 mmol/L (21-32); GLUCOSE,RANDOM 82 mg/dL (74-106); POTASSIUM 4.3 mmol/L (3.5-5.1); SGOT/AST 10 U/L (15-37); SGPT/ALT 18 U/L (12-78); SODIUM 137 mmol/L (136-145)
[2017-11-11 08:36] LABS: ALK PHOS 132 U/L (45-117); BILIRUBIN,TOTAL 0.4 mg/dL (0.2-1.0); CREATININE 0.6 mg/dL (0.55-1.02); TOT PROT 6.7 g/dl (6.4-8.2)
--- NOTE | 2017-11-11 09:35 | PN ---
Progress Note, Physician History of Present Illness: Await ERCP this afternoon, biliary colic and fecal impaction sxs improved. - Current Medication List Current Medications: Active Medications Amlodipine Besylate (Norvasc -) 5 mg PO DAILY [facility] Last Admin: 11/10/17 10:37 Dose: 5 mg Atorvastatin Calcium (Lipitor -) 10 mg PO HS [facility] Last Admin: 11/10/17 21:41 Dose: 10 mg Brimonidine Tartrate (Alphagan 0.2% -) 1 drop OU BID [facility] Last Admin: 11/10/17 21:41 Dose: 1 drop Cholecalciferol (Vitamin D3 -) 400 unit PO DAILY [facility] Last Admin: 11/10/17 10:39 Dose: 400 unit CEFTRIAXONE 1 G/50 ML PREMIX (Ceftriaxone 1 Gm-D5w Bag) 50 mls @ 100 mls/hr IVPB DAILY [facility] Last Admin: 11/10/17 10:35 Dose: 100 mls/hr Latanoprost (Xalatan 0.005% Eye Drops -) 1 drop OU [facility] Last Admin: 11/10/17 21:41 Dose: 1 drop Levothyroxine Sodium (Synthroid -) 50 mcg PO SuTuThSa@0700 [facility] Last Admin: 11/10/17 06:27 Dose: 50 mcg Levothyroxine Sodium (Synthroid -) 75 mcg PO MoWeFr@0700 [facility] Last Admin: 11/11/17 06:17 Dose: 75 mcg Losartan Potassium (Cozaar -) 50 mg PO BID [facility] Last Admin: 11/10/17 21:41 Dose: 50 mg Metoprolol Succinate (Toprol Xl -) 100 mg PO DAILY [facility] Last Admin: 11/10/17 10:38 Dose: 100 mg Non-Formulary Medication (Methenamine Hippurate) 2 gm PO BID [facility] Polyethylene Glycol (Miralax (For Daily Use) -) 17 gm PO TID [facility] Last Admin: 11/11/17 06:18 Dose: Not Given Timolol Maleate (Timoptic 0.5%) 1 drop OU BID [facility] Last Admin: 11/10/17 21:41 Dose: 1 drop Ursodiol (Actigal -) 300 mg PO BID [facility] Last Admin: 11/10/17 21:41 Dose: 300 mg - Objective Vital Signs: Vital Signs Temperature 98.0 F 11/11/17 08:58 Pulse Rate 76 11/11/17 08:58 Respiratory Rate 20 11/11/17 08:58 Blood Pressure 141/86 11/11/17 08:58 O2 Sat by Pulse Oximetry (%) 94 L 11/10/17 21:00 Constitutional: Yes: No Distress, Calm, Thin Neck: Yes: Supple Cardiovascular: Yes: Regular Rate and Rhythm, Murmur (2/6 SM) Respiratory: Yes: Regular, CTA Bilaterally Gastrointestinal: Yes: Soft, Hypoactive Bowel Sounds Edema: No Labs: CBC, BMP 11/11/17 06:00 11/11/17 06:00 INR, PTT INR 1.11 (0.82-1.09) 11/11/17 06:00 Problem List - Problems (1) Abdominal pain Code(s): R10.9 - UNSPECIFIED ABDOMINAL PAIN Qualifiers: Abdominal location: left lower quadrant Qualified Code(s): R10.32 - Left lower quadrant pain (2) Dilated cbd, acquired Code(s): K83.8 - OTHER SPECIFIED DISEASES OF BILIARY TRACT (3) Hyperlipidemia Code(s): E78.5 - HYPERLIPIDEMIA, UNSPECIFIED Qualifiers: Hyperlipidemia type: pure hypercholesterolemia Qualified Code(s): E78.00 - Pure hypercholesterolemia, unspecified (4) Hypertension Code(s): I10 - ESSENTIAL (PRIMARY) HYPERTENSION Qualifiers: Hypertension type: essential hypertension Qualified Code(s): I10 - Essential (primary) hypertension (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 Code(s): I11.9 - HYPERTENSIVE HEART DISEASE WITHOUT HEART FAILURE (6) Hypothyroidism Code(s): E03.9 - HYPOTHYROIDISM, UNSPECIFIED Qualifiers: Hypothyroidism type: unspecified Qualified Code(s): E03.9 - Hypothyroidism , unspecified (7) Moderate aortic valve stenosis Code(s): I35.0 - NONRHEUMATIC AORTIC (VALVE) STENOSIS (8) Neurocardiogenic syncope Code(s): R55 - SYNCOPE AND COLLAPSE (9) Paroxysmal atrial fibrillation Code(s): I48.0 - PAROXYSMAL ATRIAL FIBRILLATION (10) Urinary tract infection Code(s): N39.0 - URINARY TRACT INFECTION, SITE NOT SPECIFIED Qualifiers: Urinary tract infection type: site unspecified (11) Coronary artery disease Code(s): I25.10 - ATHSCL HEART DISEASE OF [place] CORONARY ARTERY W/O ANG PCTRS Qualifiers: Coronary Disease-Associated Artery/Lesion type: [place] artery [place] vs. transplanted heart: [place] heart Associated angina: without angina Qualified Code(s): I25.10 - Atherosclerotic heart disease of [place] coronary artery without angina pectoris (12) Fecal impaction of colon Code(s): K56.41 - FECAL IMPACTION (13) Pacemaker Code(s): Z95.0 - PRESENCE OF CARDIAC PACEMAKER (14) Bile duct calculus Code(s): K80.50 - CALCULUS OF BILE DUCT W/O CHOLANGITIS OR CHOLECYST W/O OBST Qualifiers: Cholecystitis presence: without cholecystitis Biliary obstruction: with biliary obstruction Qualified Code(s): K80.51 - Calculus of bile duct without cholangitis or cholecystitis with obstruction (15) Colic, biliary Code(s): K80.50 - CALCULUS OF BILE DUCT W/O CHOLANGITIS OR CHOLECYST W/O OBST Assessment/Plan 1. Resloved abd pain c/w fecal impaction, retained stones postcholecystectomy with biliary duct dilatation 2. H/o ERCP and sphincterotomy for choledocholithiasis 3. 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 Diastolic dysfunction with class 0-I NYHA classification LV failure, euvolemic 6. Moderate aortic stenosis 7. Paroxysmal atrial fibrillation currently in sinus rhythm with subtherapeutic INR 8. HTN/HCVD 9. Hyperlipidemia 10. Hypothyroidism 11. UTI PLAN: 1. Complete antibiotic course, started on Actigall with improvement in cholestatic picture 2. Continue Losartan 50 bid, Lipitor 10 qhs, Norvasc 5 qd, and Toprol XL 100 qd 3. Holding Coumadin pre-ERCP and resume once post-procedure hemostasis has been achieved 4. Plan for ERCP 11/11, may proceed from CV-standpoint without further imaging 5. Miralax for fecal impaction 6. DVT prophylaxis
[2017-11-11] MEDS ORDERED: PT OWN MED DRAWER 7, Y5N ONE ×2 (10:07→10:22)
[2017-11-11] MEDS: URSODIOL 300 MG CAPSULE PO SCH ×2 (10:13→23:07)
[2017-11-11] MEDS: BRIMONIDINE TARTRATE 0.2% OPHTHALMIC 5 ML BOTTLE OU SCH ×2 (10:13→23:07)
[2017-11-11] MEDS: LOSARTAN POTASSIUM 50 MG TABLET (FP) PO SCH ×2 (10:15→23:06)
[2017-11-11] MEDS: CEFTRIAXONE 1 G/50 ML PREMIX 50 ML IVPB SCH (10:15)
[2017-11-11] MEDS: amLODIPine BESYLATE 5 MG TABLET (FP) PO SCH (10:15)
[2017-11-11] MEDS: TIMOLOL 0.5% OPHTHALMIC SOL 5 ML BOTTLE OU SCH ×2 (10:15→23:07)
[2017-11-11] MEDS: METOPROLOL SUCCINATE 100 MG TAB.SR.24H (FP) PO SCH (10:16)
[2017-11-11] MEDS: CHOLECALCIFEROL (VITAMIN D3) 400 UNIT TABLET (FP) PO SCH (10:16)
[2017-11-11] MEDS ORDERED: ROCURONIUM BROMIDE 50 MG/5 ML VIAL ONE (12:18)
[2017-11-11] MEDS ORDERED: ePHEDrine SULFATE 50 MG/1 ML AMPULE ONE (12:19)
[2017-11-11] MEDS ORDERED: ONDANSETRON 4 MG/2 ML VIAL ONE (12:19)
[2017-11-11] MEDS ORDERED: MIDAZOLAM HCL 2 MG/2 ML SINGLE DOSE VIAL ONE (12:19)
[2017-11-11] MEDS ORDERED: DEXAMETHASONE SOD PHOSPHATE 10 MG/1 ML VIAL ONE (12:19)
[2017-11-11] MEDS ORDERED: NEOSTIGMINE METHYLSULFATE 0.5 MG/ML - 10 ML MDV ONE (12:19)
[2017-11-11] MEDS ORDERED: PHENYLEPHRINE HCL 10 MG/1 ML SINGLE DOSE VIAL ONE (12:19)
[2017-11-11] MEDS ORDERED: SUCCINYLCHOLINE CHLORIDE 200 MG/10 ML VIAL ONE (12:19)
[2017-11-11] MEDS ORDERED: GLYCOPYRROLATE 0.2 MG/1 ML VIAL ONE ×4 (12:19)
[2017-11-11] MEDS ORDERED: PROPOFOL 20 ML ONE (12:19)
[2017-11-11] MEDS ORDERED: ETOMIDATE 20 MG/10 ML AMPUL IVPUSH ONE (12:20)
[2017-11-11] MEDS ORDERED: IOHEXOL 300 MG/ML INFUS..BTL IV ONE (13:00)
--- NOTE | 2017-11-11 14:08 | PN ---
Progress Note (short form) - Note Progress Note: GI Procedure NOte: Please see ERCP report. Multiple CBD stones were found, one at least 2cm in size so the sphincterotomy had to be extended. The duct had to be swept multiple times as some of the stones splintered. Despite multiple sweeps stone debris was spewing from the sphincterotomy site which was beginning to swell and close. A 7Fr x 5cm length stent was therefore inserted. Given the sphincterotomy no anticoagulation should be given for the next 48 hours. Findings and the need for a repeat ERCP in 3 months was discussed with the patient, her daughter and grandaughter. Problem List - Problems (1) Colic, biliary Code(s): K80.50 - CALCULUS OF BILE DUCT W/O CHOLANGITIS OR CHOLECYST W/O OBST (2) Constipation Code(s): K59.00 - CONSTIPATION, UNSPECIFIED Qualifiers: Constipation type: unspecified constipation type Qualified Code(s): K59.00 - Constipation, unspecified
[2017-11-11] MEDS ORDERED: HYDROmorphone HCL CARPU-JECT 1 MG/1 ML DISP.SYRIN IVPUSH PRN (14:20)
[2017-11-11] MEDS ORDERED: HYDROmorphone HCL CARPU-JECT 2 MG/1 ML DISP.SYRIN ONE (14:23)
[2017-11-11] MEDS ORDERED: LACTATED RINGERS SOLUTION 1,000 ML/1,000 ML INFUS.BAG IV SCH ×2 (14:30→17:00)
[2017-11-11] MEDS: ACETAMINOPHEN 325 MG TABLET (FP) PO PRN (14:31)
[2017-11-11] MEDS ORDERED: LEVOFLOXACIN 500 MG IVPB 500 MG/100 ML BAG IVPB ONE (15:00)
[2017-11-11] MEDS: METRONIDAZOLE 500 MG PREMIXED 500 MG/100 ML MG IVPB SCH (17:47)
[2017-11-11] MEDS ORDERED: HYDROmorphone HCL CARPU-JECT 2 MG/1 ML DISP.SYRIN IVPUSH PRN (18:28)
[2017-11-11] MEDS: LATANOPROST 0.005% OPHTH SOLN 2.5ML BOTTLE OU SCH (23:07)
[2017-11-11] MEDS: ATORVASTATIN CA 10 MG TABLET (FP) PO SCH (23:07)
[2017-11-12] MEDS: METRONIDAZOLE 500 MG PREMIXED 500 MG/100 ML MG IVPB SCH ×3 (01:32→17:40)
[2017-11-12] MEDS: LEVOTHYROXINE NA 50 MCG TABLET (FP) PO SCH (06:24)
[2017-11-12 07:52] LABS: BASO % 0.1 % (0-2.0); HEMATOCRIT 36.2 % (32.4-45.2); HEMOGLOBIN 11.8 GM/dL (10.7-15.3); LYMPH % 2.7 % (8-40); MCH 30.8 pg (25.7-33.7); MCHC 32.7 g/dl (32.0-36.0); MEAN CELL VOLUME 94.1 fl (80-96); MEAN PLT VOLUME 8.7 fl (7.5-11.1); MONO % 6.3 % (3.8-10.2); NEUT % 90.9 % (42.8-82.8); PLATELET COUNT 208 K/MM3 (134-434); RBC 3.84 M/mm3 (3.60-5.2); RDW 13.2 % (11.6-15.6); WHITE BLOOD COUNT 20.6 K/mm3 (4.0-10.0)
[2017-11-12] MEDS ORDERED: LACTATED RINGERS SOLUTION 1,000 ML/1,000 ML INFUS.BAG IV SCH (08:00)
[2017-11-12 08:13] LABS: ALBUMIN 2.6 g/dl (3.4-5.0); ANION GAP 12 (8-16); BILIRUBIN,DIRECT < 0.2 mg/dL (0.0-0.2); BILIRUBIN,TOTAL 0.9 mg/dL (0.2-1.0); BLOOD UREA NITROGEN 12 mg/dL (7-18); CALCIUM 8.7 mg/dL (8.5-10.1); CHLORIDE 100 mmol/L (98-107); CO2 23 mmol/L (21-32); CREATININE 0.6 mg/dL (0.55-1.02); GLUCOSE,RANDOM 84 mg/dL (74-106); POTASSIUM 3.7 mmol/L (3.5-5.1); SGOT/AST 12 U/L (15-37); SGPT/ALT 17 U/L (12-78); SODIUM 135 mmol/L (136-145); TOT PROT 6.7 g/dl (6.4-8.2)
[2017-11-12 08:14] LABS: ALK PHOS 129 U/L (45-117)
[2017-11-12 08:34] LABS: INR 1.12 (0.82-1.09); PROTHROMBIN TIME (PATIENT) 12.6 SEC (9.98-11.88)
--- NOTE | 2017-11-12 09:11 | PN ---
Progress Note (short form) - Note Progress Note: Chief Complaint: Events noted, notes reviewed, denies any recurrent chest pain, denies any dyspnea, complaining of lower abdominal discomfort History of Present Illness: Seen and examined. Events noted, notes reviewed, denies any recurrent chest pain , denies any dyspnea, complaining of lower abdominal discomfort Dr. Caputo's (GI) note was noted and appreciated, A/C resumption to be differed for 48 hours related to intervention Medications: Current Medications Acetaminophen (Tylenol -) 650 mg PO Q4H PRN PRN Reason: FEVER OR PAIN Last Admin: 11/11/17 14:31 Dose: 650 mg Amlodipine Besylate (Norvasc -) 5 mg PO DAILY [facility] Last Admin: 11/12/17 10:04 Dose: 5 mg Atorvastatin Calcium (Lipitor -) 10 mg PO HS [facility] Last Admin: 11/11/17 23:07 Dose: 10 mg Brimonidine Tartrate (Alphagan 0.2% -) 1 drop OU BID [facility] Last Admin: 11/12/17 10:05 Dose: 1 drop Cholecalciferol (Vitamin D3 -) 400 unit PO DAILY [facility] Last Admin: 11/11/17 10:16 Dose: Not Given Hydromorphone HCl (Dilaudid Injection -) 1 mg IVPUSH Q4H PRN PRN Reason: PAIN Last Admin: 11/11/17 18:33 Dose: 1 mg Metronidazole (Flagyl 500mg Premixed Ivpb -) 500 mg in 100 mls @ 100 mls/hr IVPB Q8H-IV [facility] Last Admin: 11/12/17 10:05 Dose: 100 mls/hr Lactated Ringer's (Lactated Ringers Solution) 1,000 ml in 1,000 mls @ 75 mls/ hr IV [facility] Latanoprost (Xalatan 0.005% Eye Drops -) 1 drop OU HS [facility] Last Admin: 11/11/17 23:07 Dose: 1 drop Levothyroxine Sodium (Synthroid -) 50 mcg PO SuTuThSa@0700 [facility] Last Admin: 11/12/17 06:24 Dose: 50 mcg Levothyroxine Sodium (Synthroid -) 75 mcg PO MoWeFr@0700 [facility] Last Admin: 11/11/17 06:17 Dose: 75 mcg Losartan Potassium (Cozaar -) 50 mg PO BID [facility] Last Admin: 11/12/17 10:05 Dose: 50 mg Metoprolol Succinate (Toprol Xl -) 100 mg PO DAILY [facility] Last Admin: 11/12/17 10:04 Dose: 100 mg Non-Formulary Medication (Methenamine Hippurate) 2 gm PO BID [facility] Polyethylene Glycol (Miralax (For Daily Use) -) 17 gm PO DAILY [facility] Last Admin: 11/12/17 10:06 Dose: 17 gm Timolol Maleate (Timoptic 0.5%) 1 drop OU BID [facility] Last Admin: 11/12/17 10:06 Dose: 1 drop Ursodiol (Actigal -) 300 mg PO BID [facility] Last Admin: 11/12/17 10:05 Dose: 300 mg Review of Systems - Review of Systems Constitutional: no symptoms reported Respiratory: Denies: Cough or Sputum Production Cardiovascular: As noted above Gastrointestinal: denies Nausea, Vomiting, Diarrhea, Constipation but reports lower Abdominal Pain Genitourinary: No symptoms reported Musculoskeletal: Degenerative Joint Disease Endocrine: No symptoms reported Vital Signs: Last Vital Signs Temp Pulse Resp BP Pulse Ox 98.3 F 79 20 124/58 98 11/12/17 06:00 11/12/17 06:00 11/12/17 06:00 11/12/17 06:00 11/11/17 21:00 Intake & Output 11/09/17 11/10/17 11/11/17 11/12/17 23:59 23:59 23:59 23:59 Intake Total 347 068 7181 975 Balance 805 127 2084 975 Constitutional: No Distress, Calm Neck: Supple Negative JVD Respiratory: Clear to A&P Bilaterally Cardiovascular: S1 S2 Regualr Rate Rhythm Grade 2-3/6 ELIZABETH Gastrointestinal: Soft Benign Normal Bowel Sounds Ext: No Edema Labs: CBC, BMP 11/12/17 07:00 11/12/17 07:00 INR, PTT INR 1.12 (0.82-1.09) 11/12/17 07:00 Assessment/Plan ASSESSMENT: 1. Resolved abdominal pain consistent with fecal impaction and, 2. Retained stones postcholecystectomy with biliary duct dilatation post therapeutic ERCP/sphincterotomy 3. CAD angina pectoris, stable 4. 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 Moderate aortic valve stenosis 6. Paroxysmal atrial fibrillation currently in sinus rhythm with sub- therapeutic INR, currently off of A/C post procedure as noted above 7. 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 HTN/HCVD 9. Hyperlipidemia 10. Hypothyroidism PLAN: 1. Antibiotic as per the primary team 2. Continue Losartan 3. Continue Toprol XL 4. Continue Norvasc 5. Continue Lipitor 6. Hold Coumadin therapy as per GI recommendation for 48 hours and resume with caution Murray Willoughby M.D.
[2017-11-12 09:41] LABS: AMYLASE 27 U/L (25-115); LIPASE 76 U/L (73-393)
[2017-11-12] MEDS ORDERED: PT OWN MED DRAWER 7, Y5N ONE ×2 (10:02→21:46)
[2017-11-12] MEDS: amLODIPine BESYLATE 5 MG TABLET (FP) PO SCH (10:04)
[2017-11-12] MEDS: METOPROLOL SUCCINATE 100 MG TAB.SR.24H (FP) PO SCH (10:04)
[2017-11-12] MEDS: LOSARTAN POTASSIUM 50 MG TABLET (FP) PO SCH ×2 (10:05→21:51)
[2017-11-12] MEDS: URSODIOL 300 MG CAPSULE PO SCH ×2 (10:05→21:51)
[2017-11-12] MEDS: BRIMONIDINE TARTRATE 0.2% OPHTHALMIC 5 ML BOTTLE OU SCH ×2 (10:05→21:51)
[2017-11-12] MEDS: POLYETHYLENE GLYCOL 3350 119 GM BTL PO SCH (10:06)
[2017-11-12] MEDS: TIMOLOL 0.5% OPHTHALMIC SOL 5 ML BOTTLE OU SCH ×2 (10:06→21:51)
--- NOTE | 2017-11-12 12:38 | PN ---
GI Progress Note Subjective: GI NOte: Fortunately has not developed pancreatitis. Has a sore throat related to ET and ERCP instrumentation. Hungry for a solid meal. Leucocytosis may reflects bacteremia caused during stone extractions. - Objective Vital Signs: Vital Signs Temperature 98.3 F 11/12/17 06:00 Pulse Rate 79 11/12/17 06:00 Respiratory Rate 20 11/12/17 06:00 Blood Pressure 124/58 11/12/17 06:00 O2 Sat by Pulse Oximetry (%) 98 11/11/17 21:00 CBC,CMP WBC 20.6 K/mm3 (4.0-10.0) H D 11/12/17 07:00 Corrected WBC (auto) Research Physician 11/07/17 07:30 RBC 3.84 M/mm3 (3.60-5.2) 11/12/17 07:00 Hgb 11.8 GM/dL (10.7-15.3) 11/12/17 07:00 Hct 36.2 % (32.4-45.2) 11/12/17 07:00 MCV 94.1 fl (80-96) 11/12/17 07:00 MCH 30.8 pg (25.7-33.7) 11/12/17 07:00 MCHC 32.7 g/dl (32.0-36.0) 11/12/17 07:00 RDW 13.2 % (11.6-15.6) 11/12/17 07:00 Plt Count 208 K/MM3 (134-434) 11/12/17 07:00 MPV 8.7 fl (7.5-11.1) 11/12/17 07:00 Neutrophils % 90.9 % (42.8-82.8) H D 11/12/17 07:00 Lymphocytes % 2.7 % (8-40) L D 11/12/17 07:00 Monocytes % 6.3 % (3.8-10.2) 11/12/17 07:00 Eosinophils % 0.0 % (0-4.5) D 11/12/17 07:00 Basophils % 0.1 % (0-2.0) 11/12/17 07:00 Nucleated RBC % Research Physician 11/07/17 07:30 Platelet Estimate Research Physician 11/07/17 07:30 Platelet Comment Research Physician 11/07/17 07:30 Sodium 135 mmol/L (136-145) L 11/12/17 07:00 Potassium 3.7 mmol/L (3.5-5.1) 11/12/17 07:00 Chloride 100 mmol/L (98-107) 11/12/17 07:00 Carbon Dioxide 23 mmol/L (21-32) 11/12/17 07:00 Anion Gap 12 (8-16) 11/12/17 07:00 BUN 12 mg/dL (7-18) 11/12/17 07:00 Creatinine 0.6 mg/dL (0.55-1.02) 11/12/17 07:00 Creat Clearance w eGFR > 60 (>60) 11/12/17 07:00 Random Glucose 84 mg/dL (74-106) 11/12/17 07:00 Calcium 8.7 mg/dL (8.5-10.1) 11/12/17 07:00 Magnesium 2.4 mg/dL (1.8-2.4) 11/05/17 13:00 Total Bilirubin 0.9 mg/dL (0.2-1.0) D 11/12/17 07:00 Direct Bilirubin < 0.2 mg/dL (0.0-0.2) 11/12/17 07:00 AST 12 U/L (15-37) L 11/12/17 07:00 ALT 17 U/L (12-78) 11/12/17 07:00 Alkaline Phosphatase 129 U/L (45-117) H 11/12/17 07:00 C-Reactive Protein 5.5 MG/DL (0.00-0.3) H D 11/12/17 07:00 Total Protein 6.7 g/dl (6.4-8.2) 11/12/17 07:00 Albumin 2.6 g/dl (3.4-5.0) L 11/12/17 07:00 Total Amylase 27 U/L (25-115) D 11/12/17 07:00 Lipase 76 U/L (73-393) 11/12/17 07:00 TSH 6.67 uIU/ml (0.358-3.74) H D 11/06/17 06:50 Constitutional: No Distress ...Auscultate: Yes: Normoactive Bowel Sounds ...Palpate: Yes: Soft, Other (nontender) Labs: CBC, BMP 11/12/17 07:00 11/12/17 07:00 INR, PTT INR 1.12 (0.82-1.09) 11/12/17 07:00 Assessment/Plan Continue antibiotics Low salt diet Follow LFTs and CBCs Problem List - Problems (1) Colic, biliary Code(s): K80.50 - CALCULUS OF BILE DUCT W/O CHOLANGITIS OR CHOLECYST W/O OBST (2) Constipation Code(s): K59.00 - CONSTIPATION, UNSPECIFIED Qualifiers: Constipation type: unspecified constipation type (3) Bile duct calculus Assessment/Plan: Day 1 s/p ERCP with stone extractions after extension of sphincterotomy and then stent insertion. Suspect bacteremia induced by stone extraction as the cause of elevated WBC. Will continue antibiotics. No overt bleeding or pancreatitis. Diet advanced. Continue to refrain from anticoagulation. Code(s): K80.50 - CALCULUS OF BILE DUCT W/O CHOLANGITIS OR CHOLECYST W/O OBST Qualifiers: Cholecystitis presence: without cholecystitis Biliary obstruction: with biliary obstruction Qualified Code(s): K80.51 - Calculus of bile duct without cholangitis or cholecystitis with obstruction
--- NOTE | 2017-11-12 13:34 | PN ---
Progress Note (short form) - Note Progress Note: ANESTHESIOLOGY POST-OP CHECK 87F s/p ERCP under general anesthesia POD #1. No acute complaints, denies pain, N/V. Vital Signs Temperature 98.3 F 11/12/17 06:00 Pulse Rate 79 11/12/17 06:00 Respiratory Rate 20 11/12/17 06:00 Blood Pressure 124/58 11/12/17 06:00 O2 Sat by Pulse Oximetry (%) 98 11/11/17 21:00 Active Medications Acetaminophen (Tylenol -) 650 mg PO Q4H PRN PRN Reason: FEVER OR PAIN Last Admin: 11/11/17 14:31 Dose: 650 mg Amlodipine Besylate (Norvasc -) 5 mg PO DAILY [facility] Last Admin: 11/12/17 10:04 Dose: 5 mg Atorvastatin Calcium (Lipitor -) 10 mg PO HS [facility] Last Admin: 11/11/17 23:07 Dose: 10 mg Brimonidine Tartrate (Alphagan 0.2% -) 1 drop OU BID [facility] Last Admin: 11/12/17 10:05 Dose: 1 drop Cholecalciferol (Vitamin D3 -) 400 unit PO DAILY [facility] Last Admin: 11/11/17 10:16 Dose: Not Given Hydromorphone HCl (Dilaudid Injection -) 1 mg IVPUSH Q4H PRN PRN Reason: PAIN Last Admin: 11/11/17 18:33 Dose: 1 mg Metronidazole (Flagyl 500mg Premixed Ivpb -) 500 mg in 100 mls @ 100 mls/hr IVPB Q8H-IV [facility] Last Admin: 11/12/17 10:05 Dose: 100 mls/hr Latanoprost (Xalatan 0.005% Eye Drops -) 1 drop OU HS [facility] Last Admin: 11/11/17 23:07 Dose: 1 drop Levothyroxine Sodium (Synthroid -) 50 mcg PO SuTuThSa@0700 [facility] Last Admin: 11/12/17 06:24 Dose: 50 mcg Levothyroxine Sodium (Synthroid -) 75 mcg PO MoWeFr@0700 [facility] Last Admin: 11/11/17 06:17 Dose: 75 mcg Losartan Potassium (Cozaar -) 50 mg PO BID [facility] Last Admin: 11/12/17 10:05 Dose: 50 mg Metoprolol Succinate (Toprol Xl -) 100 mg PO DAILY [facility] Last Admin: 11/12/17 10:04 Dose: 100 mg Non-Formulary Medication (Methenamine Hippurate) 2 gm PO BID [facility] Polyethylene Glycol (Miralax (For Daily Use) -) 17 gm PO DAILY [facility] Last Admin: 11/12/17 10:06 Dose: 17 gm Timolol Maleate (Timoptic 0.5%) 1 drop OU BID [facility] Last Admin: 11/12/17 10:06 Dose: 1 drop Ursodiol (Actigal -) 300 mg PO BID [facility] Last Admin: 11/12/17 10:05 Dose: 300 mg Gen: awake, alert No apparent anesthesia complications. Pain controlled. Continue management as per primary team.
--- NOTE | 2017-11-12 14:14 | PN ---
Progress Note, Physician Chief Complaint: in bed awake alert NAD no abdominal pain no fever/chills s/p ERCP tolerated well multiple stones extracted from CBD - Current Medication List Current Medications: Active Medications Acetaminophen (Tylenol -) 650 mg PO Q4H PRN PRN Reason: FEVER OR PAIN Last Admin: 11/11/17 14:31 Dose: 650 mg Amlodipine Besylate (Norvasc -) 5 mg PO DAILY [facility] Last Admin: 11/12/17 10:04 Dose: 5 mg Atorvastatin Calcium (Lipitor -) 10 mg PO HS [facility] Last Admin: 11/11/17 23:07 Dose: 10 mg Brimonidine Tartrate (Alphagan 0.2% -) 1 drop OU BID [facility] Last Admin: 11/12/17 10:05 Dose: 1 drop Cholecalciferol (Vitamin D3 -) 400 unit PO DAILY [facility] Last Admin: 11/11/17 10:16 Dose: Not Given Hydromorphone HCl (Dilaudid Injection -) 1 mg IVPUSH Q4H PRN PRN Reason: PAIN Last Admin: 11/11/17 18:33 Dose: 1 mg Metronidazole (Flagyl 500mg Premixed Ivpb -) 500 mg in 100 mls @ 100 mls/hr IVPB Q8H-IV [facility] Last Admin: 11/12/17 10:05 Dose: 100 mls/hr Latanoprost (Xalatan 0.005% Eye Drops -) 1 drop OU [facility] Last Admin: 11/11/17 23:07 Dose: 1 drop Levothyroxine Sodium (Synthroid -) 50 mcg PO SuTuThSa@0700 [facility] Last Admin: 11/12/17 06:24 Dose: 50 mcg Levothyroxine Sodium (Synthroid -) 75 mcg PO MoWeFr@0700 [facility] Last Admin: 11/11/17 06:17 Dose: 75 mcg Losartan Potassium (Cozaar -) 50 mg PO BID [facility] Last Admin: 11/12/17 10:05 Dose: 50 mg Metoprolol Succinate (Toprol Xl -) 100 mg PO DAILY [facility] Last Admin: 11/12/17 10:04 Dose: 100 mg Non-Formulary Medication (Methenamine Hippurate) 2 gm PO BID [facility] Polyethylene Glycol (Miralax (For Daily Use) -) 17 gm PO DAILY [facility] Last Admin: 11/12/17 10:06 Dose: 17 gm Timolol Maleate (Timoptic 0.5%) 1 drop OU BID [facility] Last Admin: 11/12/17 10:06 Dose: 1 drop Ursodiol (Actigal -) 300 mg PO BID [facility] Last Admin: 11/12/17 10:05 Dose: 300 mg - Objective Vital Signs: Vital Signs Temperature 98.3 F 11/12/17 06:00 Pulse Rate 79 11/12/17 06:00 Respiratory Rate 20 11/12/17 06:00 Blood Pressure 124/58 11/12/17 06:00 O2 Sat by Pulse Oximetry (%) 98 11/11/17 21:00 Constitutional: Yes: No Distress, Calm Eyes: Yes: Conjunctiva Clear HENT: Yes: Atraumatic Neck: Yes: Supple Cardiovascular: Yes: Regular Rate and Rhythm Respiratory: Yes: CTA Bilaterally Gastrointestinal: Yes: WNL, Soft, Tenderness. No: Distention Genitourinary: No: CVA Tenderness - Left, CVA Tenderness - Right Musculoskeletal: No: Joint Stiffness, Joint Swelling Extremities: No: Cold, Cool, Cyanosis Edema: No Integumentary: No: Rash, Venous Stasis Changes Neurological: Yes: WNL, Alert, Oriented ...Motor Strength: WNL Psychiatric: Yes: WNL, Alert, Oriented. No: Agitated, Suicidal Ideation Labs: CBC, BMP 11/12/17 07:00 11/12/17 07:00 INR, PTT INR 1.12 (0.82-1.09) 11/12/17 07:00 - ....Imaging Other: Report Reviewed Assessment/Plan The patient is a 87 year old female, with a significant past medical history of Atrial fibrillation (on Coumadin), HTN, HLD, CAD s/p stents and pacemaker, Hypothyroidism, Diverticulitis, CBD stone extracted via ERCP 10/29; recurrent UTIs admitted with abdominal pain, CBD stones IV ATB s/p ERCP and stones extractions f/u labs; GI f/u no AC at leats 48 H after ERCP per GI s/p sphincterotomy falls decubs PFX d/w pt and staff
[2017-11-12] MEDS: CHOLECALCIFEROL (VITAMIN D3) 400 UNIT TABLET (FP) PO SCH (14:52)
[2017-11-12] MEDS: LACTATED RINGERS SOLUTION 1,000 ML/1,000 ML INFUS.BAG IV SCH (21:10)
[2017-11-12] MEDS: LATANOPROST 0.005% OPHTH SOLN 2.5ML BOTTLE OU SCH ×2 (21:51→22:20)
[2017-11-12] MEDS: ATORVASTATIN CA 10 MG TABLET (FP) PO SCH (21:51)
[2017-11-12] MEDS: ACETAMINOPHEN 325 MG TABLET (FP) PO PRN (22:15)
[2017-11-13] MEDS: METRONIDAZOLE 500 MG PREMIXED 500 MG/100 ML MG IVPB SCH ×3 (01:35→18:23)
[2017-11-13] MEDS: LEVOTHYROXINE NA 50 MCG TABLET (FP) PO SCH (06:18)
--- NOTE | 2017-11-13 07:16 | PN ---
Progress Note, Physician Chief Complaint: in bed NAD no abdominal pain; had low grade temp last night 99.8 on IV Flagyl s/ p ERCP; will add ceftriaxone and GI f/u - Current Medication List Current Medications: Active Medications Acetaminophen (Tylenol -) 650 mg PO Q4H PRN PRN Reason: FEVER OR PAIN Last Admin: 11/12/17 22:15 Dose: 650 mg Amlodipine Besylate (Norvasc -) 5 mg PO DAILY [facility] Last Admin: 11/12/17 10:04 Dose: 5 mg Atorvastatin Calcium (Lipitor -) 10 mg PO HS [facility] Last Admin: 11/12/17 21:51 Dose: 10 mg Brimonidine Tartrate (Alphagan 0.2% -) 1 drop OU BID [facility] Last Admin: 11/12/17 21:51 Dose: 1 drop Cholecalciferol (Vitamin D3 -) 400 unit PO DAILY [facility] Last Admin: 11/12/17 14:52 Dose: 400 unit Hydromorphone HCl (Dilaudid Injection -) 1 mg IVPUSH Q4H PRN PRN Reason: PAIN Last Admin: 11/11/17 18:33 Dose: 1 mg Metronidazole (Flagyl 500mg Premixed Ivpb -) 500 mg in 100 mls @ 100 mls/hr IVPB Q8H-IV [facility] Last Admin: 11/13/17 01:35 Dose: 100 mls/hr Latanoprost (Xalatan 0.005% Eye Drops -) 1 drop OU HS [facility] Last Admin: 11/12/17 22:20 Dose: Not Given Levothyroxine Sodium (Synthroid -) 50 mcg PO SuTuThSa@0700 [facility] Last Admin: 11/13/17 06:18 Dose: 50 mcg Levothyroxine Sodium (Synthroid -) 75 mcg PO MoWeFr@0700 [facility] Last Admin: 11/11/17 06:17 Dose: 75 mcg Losartan Potassium (Cozaar -) 50 mg PO BID [facility] Last Admin: 11/12/17 21:51 Dose: 50 mg Metoprolol Succinate (Toprol Xl -) 100 mg PO DAILY [facility] Last Admin: 11/12/17 10:04 Dose: 100 mg Non-Formulary Medication (Methenamine Hippurate) 2 gm PO BID [facility] Polyethylene Glycol (Miralax (For Daily Use) -) 17 gm PO DAILY [facility] Last Admin: 11/12/17 10:06 Dose: 17 gm Timolol Maleate (Timoptic 0.5%) 1 drop OU BID [facility] Last Admin: 11/12/17 21:51 Dose: 1 drop Ursodiol (Actigal -) 300 mg PO BID [facility] Last Admin: 11/12/17 21:51 Dose: 300 mg - Objective Vital Signs: Vital Signs Temperature 98.4 F 11/13/17 06:09 Pulse Rate 80 11/13/17 06:09 Respiratory Rate 16 11/13/17 06:09 Blood Pressure 116/74 11/13/17 06:09 O2 Sat by Pulse Oximetry (%) 98 11/12/17 21:00 Constitutional: Yes: No Distress, Calm Eyes: Yes: Conjunctiva Clear HENT: Yes: Atraumatic Neck: Yes: Supple Cardiovascular: Yes: Regular Rate and Rhythm Respiratory: Yes: CTA Bilaterally Gastrointestinal: Yes: Soft. No: Distention, Tenderness Genitourinary: No: CVA Tenderness - Left, CVA Tenderness - Right Musculoskeletal: No: Joint Stiffness, Joint Swelling Extremities: No: Cold, Cool, Cyanosis Edema: No Integumentary: No: Rash, Venous Stasis Changes Neurological: Yes: WNL, Alert, Oriented ...Motor Strength: WNL Psychiatric: Yes: WNL, Alert, Oriented. No: Agitated, Suicidal Ideation Labs: INR, PTT INR 1.12 (0.82-1.09) 11/12/17 07:00 - ....Imaging Other: Report Reviewed Assessment/Plan The patient is a 87 year old female, with a significant past medical history of Atrial fibrillation (on Coumadin), HTN, HLD, CAD s/p stents and pacemaker, Hypothyroidism, Diverticulitis, CBD stone extracted via ERCP 10/29; recurrent UTIs admitted with abdominal pain, recurrent CBD stones s/p ERCP and stones extractions; low grade temp IV ATB f/u labs; GI f/u no AC at leats 48 H after ERCP per GI s/p sphincterotomy falls decubs PFX d/w pt and staff
[2017-11-13 07:44] LABS: BASO % 0.4 % (0-2.0); EOS % 1.5 % (0-4.5); HEMATOCRIT 32.4 % (32.4-45.2); HEMOGLOBIN 10.7 GM/dL (10.7-15.3); LYMPH % 8.5 % (8-40); MCH 30.9 pg (25.7-33.7); MCHC 32.9 g/dl (32.0-36.0); MEAN CELL VOLUME 93.9 fl (80-96); MEAN PLT VOLUME 8.8 fl (7.5-11.1); MONO % 9.5 % (3.8-10.2); NEUT % 80.1 % (42.8-82.8); PLATELET COUNT 188 K/MM3 (134-434); RBC 3.46 M/mm3 (3.60-5.2); RDW 13.5 % (11.6-15.6); WHITE BLOOD COUNT 12.1 K/mm3 (4.0-10.0)
[2017-11-13 07:50] LABS: ALBUMIN 2.5 g/dl (3.4-5.0); ANION GAP 11 (8-16); BILIRUBIN,DIRECT 0.2 mg/dL (0.0-0.2); BLOOD UREA NITROGEN 8 mg/dL (7-18); CALCIUM 8.7 mg/dL (8.5-10.1); CHLORIDE 102 mmol/L (98-107); CO2 25 mmol/L (21-32); CREATININE 0.6 mg/dL (0.55-1.02); GLUCOSE,RANDOM 78 mg/dL (74-106); POTASSIUM 3.5 mmol/L (3.5-5.1); SGOT/AST 15 U/L (15-37); SGPT/ALT 15 U/L (12-78); SODIUM 138 mmol/L (136-145)
[2017-11-13 07:51] LABS: ALK PHOS 121 U/L (45-117); BILIRUBIN,TOTAL 0.6 mg/dL (0.2-1.0); TOT PROT 6.3 g/dl (6.4-8.2)
--- NOTE | 2017-11-13 10:16 | PN ---
Progress Note (short form) - Note Progress Note: Chief Complaint: Events noted, notes reviewed, denies any chest pain or dyspnea , lower abdominal discomfort resolved, to resume A/C with Coumadin and avoid Heparin History of Present Illness: Seen and examined. Events noted, notes reviewed, denies any chest pain or dyspnea, lower abdominal discomfort resolved, to resume A/C with Coumadin and avoid Heparin Medications: Current Medications Acetaminophen (Tylenol -) 650 mg PO Q4H PRN PRN Reason: FEVER OR PAIN Last Admin: 11/12/17 22:15 Dose: 650 mg Amlodipine Besylate (Norvasc -) 5 mg PO DAILY [facility] Last Admin: 11/12/17 10:04 Dose: 5 mg Atorvastatin Calcium (Lipitor -) 10 mg PO HS [facility] Last Admin: 11/12/17 21:51 Dose: 10 mg Brimonidine Tartrate (Alphagan 0.2% -) 1 drop OU BID [facility] Last Admin: 11/12/17 21:51 Dose: 1 drop Cholecalciferol (Vitamin D3 -) 400 unit PO DAILY [facility] Last Admin: 11/12/17 14:52 Dose: 400 unit Hydromorphone HCl (Dilaudid Injection -) 1 mg IVPUSH Q4H PRN PRN Reason: PAIN Last Admin: 11/11/17 18:33 Dose: 1 mg Metronidazole (Flagyl 500mg Premixed Ivpb -) 500 mg in 100 mls @ 100 mls/hr IVPB Q8H-IV [facility] Last Admin: 11/13/17 01:35 Dose: 100 mls/hr CEFTRIAXONE 1 G/50 ML PREMIX (Ceftriaxone 1 Gm-D5w Bag) 50 mls @ 100 mls/hr IVPB DAILY [facility] Latanoprost (Xalatan 0.005% Eye Drops -) 1 drop OU HS [facility] Last Admin: 11/12/17 22:20 Dose: Not Given Levothyroxine Sodium (Synthroid -) 50 mcg PO SuTuThSa@0700 [facility] Last Admin: 11/13/17 06:18 Dose: 50 mcg Levothyroxine Sodium (Synthroid -) 75 mcg PO MoWeFr@0700 [facility] Last Admin: 11/11/17 06:17 Dose: 75 mcg Losartan Potassium (Cozaar -) 50 mg PO BID [facility] Last Admin: 11/12/17 21:51 Dose: 50 mg Metoprolol Succinate (Toprol Xl -) 100 mg PO DAILY [facility] Last Admin: 11/12/17 10:04 Dose: 100 mg Non-Formulary Medication (Methenamine Hippurate) 2 gm PO BID [facility] Polyethylene Glycol (Miralax (For Daily Use) -) 17 gm PO DAILY [facility] Last Admin: 11/12/17 10:06 Dose: 17 gm Timolol Maleate (Timoptic 0.5%) 1 drop OU BID [facility] Last Admin: 11/12/17 21:51 Dose: 1 drop Ursodiol (Actigal -) 300 mg PO BID [facility] Last Admin: 11/12/17 21:51 Dose: 300 mg Review of Systems - Review of Systems Constitutional: no symptoms reported Respiratory: Denies: Cough or Sputum Production Cardiovascular: As noted above Gastrointestinal: denies Nausea, Vomiting, Diarrhea, Constipation or Abdominal Pain Genitourinary: No symptoms reported Musculoskeletal: Degenerative Joint Disease Endocrine: No symptoms reported Vital Signs: Last Vital Signs Temp Pulse Resp BP Pulse Ox 98.4 F 80 16 116/74 98 11/13/17 06:09 11/13/17 06:09 11/13/17 06:09 11/13/17 06:09 11/12/17 21:00 Intake & Output 11/10/17 11/11/17 11/12/17 11/13/17 23:59 23:59 23:59 23:59 Intake Total 600 1950 3030 590 Balance 600 1950 3030 590 Constitutional: No Distress, Calm Neck: Supple Negative JVD Respiratory: Clear to A&P Bilaterally Cardiovascular: S1 S2 Regular Rate Rhythm Grade 2-3/6 ELIZABETH Gastrointestinal: Soft Benign Normal Bowel Sounds Ext: No Edema Labs: CBC, BMP 11/13/17 06:00 11/13/17 06:00 INR, PTT INR 1.12 (0.82-1.09) 11/12/17 07:00 Hepatic Panel Total Bilirubin 0.6 mg/dL (0.2-1.0) D 11/13/17 06:00 Direct Bilirubin 0.2 mg/dL (0.0-0.2) 11/13/17 06:00 AST 15 U/L (15-37) D 11/13/17 06:00 ALT 15 U/L (12-78) 11/13/17 06:00 Alkaline Phosphatase 121 U/L (45-117) H 11/13/17 06:00 Albumin 2.5 g/dl (3.4-5.0) L 11/13/17 06:00 Assessment/Plan ASSESSMENT: 1. Resolved abdominal pain consistent with fecal impaction and, 2. Retained stones post cholecystectomy with biliary duct dilatation post therapeutic ERCP/sphincterotomy 3. CAD angina pectoris, stable 4. 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 Moderate aortic valve stenosis 6. Paroxysmal atrial fibrillation currently in sinus rhythm with sub- therapeutic INR, to resume A/C with Coumadin 7. 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 HTN/HCVD 9. Hyperlipidemia 10. Hypothyroidism PLAN: 1. Antibiotic as per the primary team 2. Continue Losartan 3. Continue Toprol XL 4. Continue Norvasc 5. Continue Lipitor 6. Resume Coumadin with caution and close monitoring of CBC and INR Murray Willoughby M.D.
[2017-11-13] MEDS: CEFTRIAXONE 1 G/50 ML PREMIX 50 ML IVPB SCH (10:34)
[2017-11-13] MEDS: METOPROLOL SUCCINATE 100 MG TAB.SR.24H (FP) PO SCH (10:36)
[2017-11-13] MEDS: LOSARTAN POTASSIUM 50 MG TABLET (FP) PO SCH ×2 (10:36→21:54)
[2017-11-13] MEDS: amLODIPine BESYLATE 5 MG TABLET (FP) PO SCH (10:37)
[2017-11-13] MEDS: URSODIOL 300 MG CAPSULE PO SCH ×2 (10:37→21:54)
[2017-11-13] MEDS: BRIMONIDINE TARTRATE 0.2% OPHTHALMIC 5 ML BOTTLE OU SCH ×2 (10:37→21:55)
[2017-11-13] MEDS: CHOLECALCIFEROL (VITAMIN D3) 400 UNIT TABLET (FP) PO SCH (10:37)
[2017-11-13] MEDS: TIMOLOL 0.5% OPHTHALMIC SOL 5 ML BOTTLE OU SCH ×2 (10:38→22:08)
[2017-11-13] MEDS: POLYETHYLENE GLYCOL 3350 119 GM BTL PO SCH (10:42)
--- NOTE | 2017-11-13 15:23 | PN ---
GI Progress Note Subjective: GI NOte: Pain free and tolerating diet. LFTs and WBC normalizing. No bleeding. Hb stable post-sphincterotomy - Objective Vital Signs: Vital Signs Temperature 98.7 F 11/13/17 14:29 Pulse Rate 76 11/13/17 14:29 Respiratory Rate 18 11/13/17 14:29 Blood Pressure 113/66 11/13/17 14:29 O2 Sat by Pulse Oximetry (%) 98 11/12/17 21:00 Laboratory Tests 11/13/17 11/13/17 06:00 06:00 WBC 12.1 H D Total Bilirubin 0.6 D Direct Bilirubin 0.2 AST 15 D ALT 15 Alkaline Phosphatase 121 H Constitutional: Calm ...Auscultate: Yes: Normoactive Bowel Sounds ...Palpate: Yes: Soft, Other (nontender) Labs: CBC, BMP 11/13/17 06:00 11/13/17 06:00 INR, PTT INR 1.12 (0.82-1.09) 11/12/17 07:00 Assessment/Plan Continue IV antibiotics as suspect bactermia during stone extractions Low salt diet Can resume warfarin Stop miralax Problem List - Problems (1) Colic, biliary Assessment/Plan: 48 hours s/p ERCP with no bleeding Code(s): K80.50 - CALCULUS OF BILE DUCT W/O CHOLANGITIS OR CHOLECYST W/O OBST (2) Constipation Code(s): K59.00 - CONSTIPATION, UNSPECIFIED Qualifiers: Constipation type: unspecified constipation type Qualified Code(s): K59.00 - Constipation, unspecified (3) Bile duct calculus Code(s): K80.50 - CALCULUS OF BILE DUCT W/O CHOLANGITIS OR CHOLECYST W/O OBST Qualifiers: Cholecystitis presence: without cholecystitis Biliary obstruction: with biliary obstruction Qualified Code(s): K80.51 - Calculus of bile duct without cholangitis or cholecystitis with obstruction
[2017-11-13] MEDS ORDERED: PT OWN MED DRAWER 7, Y5N ONE (17:19)
[2017-11-13] MEDS ORDERED: WARFARIN NA 2 MG TABLET (UD) PO ONE (18:00)
[2017-11-13] MEDS: LATANOPROST 0.005% OPHTH SOLN 2.5ML BOTTLE OU SCH (21:54)
[2017-11-13] MEDS: ATORVASTATIN CA 10 MG TABLET (FP) PO SCH (21:54)
[2017-11-14] MEDS: METRONIDAZOLE 500 MG PREMIXED 500 MG/100 ML MG IVPB SCH ×3 (02:22→18:12)
[2017-11-14] MEDS: LEVOTHYROXINE NA 75 MCG TABLET (FP) PO SCH (06:46)
[2017-11-14 07:58] LABS: BASO % 0.7 % (0-2.0); EOS % 3.9 % (0-4.5); HEMOGLOBIN 10.6 GM/dL (10.7-15.3); LYMPH % 13.5 % (8-40); MCHC 33.2 g/dl (32.0-36.0); MEAN CELL VOLUME 93.4 fl (80-96); MEAN PLT VOLUME 8.7 fl (7.5-11.1); MONO % 11.5 % (3.8-10.2); NEUT % 70.4 % (42.8-82.8); PLATELET COUNT 190 K/MM3 (134-434); RBC 3.42 M/mm3 (3.60-5.2); RDW 13.5 % (11.6-15.6); WHITE BLOOD COUNT 7.8 K/mm3 (4.0-10.0)
[2017-11-14 08:07] LABS: INR 1.11 (0.82-1.09); PROTHROMBIN TIME (PATIENT) 12.5 SEC (9.98-11.88)
[2017-11-14 08:25] LABS: CHLORIDE 107 mmol/L (98-107); POTASSIUM 3.7 mmol/L (3.5-5.1); SODIUM 142 mmol/L (136-145)
[2017-11-14 08:32] LABS: ALBUMIN 2.3 g/dl (3.4-5.0); ALK PHOS 109 U/L (45-117); ANION GAP 10 (8-16); BILIRUBIN,DIRECT 0.2 mg/dL (0.0-0.2); BILIRUBIN,TOTAL 0.4 mg/dL (0.2-1.0); BLOOD UREA NITROGEN 7 mg/dL (7-18); CALCIUM 8.8 mg/dL (8.5-10.1); CO2 25 mmol/L (21-32); CREATININE 0.5 mg/dL (0.55-1.02); GLUCOSE,RANDOM 79 mg/dL (74-106); SGOT/AST 12 U/L (15-37); SGPT/ALT 15 U/L (12-78); TOT PROT 6.1 g/dl (6.4-8.2)
[2017-11-14] MEDS ORDERED: BENZOCAINE 28 GM HEMORRHOIDAL OINTMENT PR PRN (09:33)
--- NOTE | 2017-11-14 09:33 | PN ---
Progress Note, Physician Chief Complaint: OOB to chair NAD afebrile no abdominal pain no N/V, had small hemorrhoidal bleed x 1 and loose stools; received 2 mg coumadin last night INR 1.1 today GI f/u; continue coumadin for now hold miralax for now - Current Medication List Current Medications: Active Medications Acetaminophen (Tylenol -) 650 mg PO Q4H PRN PRN Reason: FEVER OR PAIN Last Admin: 11/12/17 22:15 Dose: 650 mg Amlodipine Besylate (Norvasc -) 5 mg PO DAILY [facility] Last Admin: 11/13/17 10:37 Dose: 5 mg Atorvastatin Calcium (Lipitor -) 10 mg PO HS [facility] Last Admin: 11/13/17 21:54 Dose: 10 mg Brimonidine Tartrate (Alphagan 0.2% -) 1 drop OU BID [facility] Last Admin: 11/13/17 21:55 Dose: 1 drop Cholecalciferol (Vitamin D3 -) 400 unit PO DAILY [facility] Last Admin: 11/13/17 10:37 Dose: 400 unit Metronidazole (Flagyl 500mg Premixed Ivpb -) 500 mg in 100 mls @ 100 mls/hr IVPB Q8H-IV [facility] Last Admin: 11/14/17 02:22 Dose: 100 mls/hr CEFTRIAXONE 1 G/50 ML PREMIX (Ceftriaxone 1 Gm-D5w Bag) 50 mls @ 100 mls/hr IVPB DAILY [facility] Last Admin: 11/13/17 10:34 Dose: 100 mls/hr Latanoprost (Xalatan 0.005% Eye Drops -) 1 drop OU HS [facility] Last Admin: 11/13/17 21:54 Dose: 1 drop Levothyroxine Sodium (Synthroid -) 50 mcg PO SuTuThSa@0700 [facility] Last Admin: 11/13/17 06:18 Dose: 50 mcg Levothyroxine Sodium (Synthroid -) 75 mcg PO MoWeFr@0700 [facility] Last Admin: 11/14/17 06:46 Dose: 75 mcg Losartan Potassium (Cozaar -) 50 mg PO BID [facility] Last Admin: 11/13/17 21:54 Dose: 50 mg Metoprolol Succinate (Toprol Xl -) 100 mg PO DAILY [facility] Last Admin: 11/13/17 10:36 Dose: 100 mg Non-Formulary Medication (Methenamine Hippurate) 2 gm PO BID [facility] Timolol Maleate (Timoptic 0.5%) 1 drop OU BID [facility] Last Admin: 11/13/17 22:08 Dose: 1 drop Ursodiol (Actigal -) 300 mg PO BID [facility] Last Admin: 11/13/17 21:54 Dose: 300 mg - Objective Vital Signs: Vital Signs Temperature 98.4 F 11/14/17 06:33 Pulse Rate 73 11/14/17 06:33 Respiratory Rate 20 11/14/17 06:33 Blood Pressure 152/73 11/14/17 06:33 O2 Sat by Pulse Oximetry (%) 98 11/13/17 21:00 Constitutional: Yes: No Distress, Calm Eyes: Yes: Conjunctiva Clear HENT: Yes: Atraumatic Neck: Yes: Supple Cardiovascular: Yes: Regular Rate and Rhythm Respiratory: Yes: CTA Bilaterally Gastrointestinal: Yes: Soft. No: Distention, Tenderness Genitourinary: No: CVA Tenderness - Left, CVA Tenderness - Right Musculoskeletal: No: Joint Stiffness, Joint Swelling Extremities: No: Cold, Cool, Cyanosis Edema: No Integumentary: No: Rash, Venous Stasis Changes Neurological: Yes: WNL, Alert, Oriented ...Motor Strength: WNL Psychiatric: Yes: WNL, Alert, Oriented. No: Agitated, Suicidal Ideation Labs: CBC, BMP 11/14/17 05:35 INR, PTT INR 1.11 (0.82-1.09) 11/14/17 05:35 - ....Imaging Other: Report Reviewed Assessment/Plan The patient is a 87 year old female, with a significant past medical history of Atrial fibrillation (on Coumadin), HTN, HLD, CAD s/p stents and pacemaker, Hypothyroidism, Diverticulitis, CBD stone extracted via ERCP 10/29; recurrent UTIs admitted with abdominal pain, recurrent CBD stones s/p ERCP and stones extractions; hemorrhoidal bleed x 1 see above IV ATB f/u labs; GI f/u started on coumadin f/u INR falls decubs PFX d/w pt and staff
[2017-11-14] MEDS: METOPROLOL SUCCINATE 100 MG TAB.SR.24H (FP) PO SCH (11:34)
[2017-11-14] MEDS: CEFTRIAXONE 1 G/50 ML PREMIX 50 ML IVPB SCH (11:34)
[2017-11-14] MEDS: LOSARTAN POTASSIUM 50 MG TABLET (FP) PO SCH ×2 (11:34→22:31)
[2017-11-14] MEDS: amLODIPine BESYLATE 5 MG TABLET (FP) PO SCH (11:35)
[2017-11-14] MEDS: CHOLECALCIFEROL (VITAMIN D3) 400 UNIT TABLET (FP) PO SCH (11:35)
[2017-11-14] MEDS: URSODIOL 300 MG CAPSULE PO SCH ×2 (11:35→22:31)
[2017-11-14] MEDS: BRIMONIDINE TARTRATE 0.2% OPHTHALMIC 5 ML BOTTLE OU SCH ×2 (11:35→22:45)
[2017-11-14] MEDS: TIMOLOL 0.5% OPHTHALMIC SOL 5 ML BOTTLE OU SCH ×2 (11:36→22:44)
[2017-11-14] MEDS: METHENAMINE HIPPURATE PO SCH ×2 (11:37→13:13)
--- NOTE | 2017-11-14 12:56 | PN ---
Progress Note (short form) - Note Progress Note: Chief Complaint: Events noted, notes reviewed, denies any chest pain or dyspnea , no further lower abdominal discomfort, A/C resumed with Coumadin History of Present Illness: Seen and examined. Events noted, notes reviewed, denies any chest pain or dyspnea, no further lower abdominal discomfort, A/C resumed with Coumadin INR does not have to be therapeutic prior to D/C home, patient was advised to obtain INR measurement end of the week in our office Medications: Current Medications Acetaminophen (Tylenol -) 650 mg PO Q4H PRN PRN Reason: FEVER OR PAIN Last Admin: 11/12/17 22:15 Dose: 650 mg Amlodipine Besylate (Norvasc -) 5 mg PO DAILY [facility] Last Admin: 11/14/17 11:35 Dose: 5 mg Atorvastatin Calcium (Lipitor -) 10 mg PO HS [facility] Last Admin: 11/13/17 21:54 Dose: 10 mg Benzocaine (Americaine Ointment -) 1 applic [place] Q6H PRN PRN Reason: PAIN Last Admin: 11/14/17 11:49 Dose: 1 applic Brimonidine Tartrate (Alphagan 0.2% -) 1 drop OU BID [facility] Last Admin: 11/14/17 11:35 Dose: 1 drop Cholecalciferol (Vitamin D3 -) 400 unit PO DAILY [facility] Last Admin: 11/14/17 11:35 Dose: 400 unit Metronidazole (Flagyl 500mg Premixed Ivpb -) 500 mg in 100 mls @ 100 mls/hr IVPB Q8H-IV [facility] Last Admin: 11/14/17 11:34 Dose: 100 mls/hr CEFTRIAXONE 1 G/50 ML PREMIX (Ceftriaxone 1 Gm-D5w Bag) 50 mls @ 100 mls/hr IVPB DAILY [facility] Last Admin: 11/14/17 11:34 Dose: 100 mls/hr Latanoprost (Xalatan 0.005% Eye Drops -) 1 drop OU HS [facility] Last Admin: 11/13/17 21:54 Dose: 1 drop Levothyroxine Sodium (Synthroid -) 50 mcg PO SuTuThSa@0700 [facility] Last Admin: 11/13/17 06:18 Dose: 50 mcg Levothyroxine Sodium (Synthroid -) 75 mcg PO MoWeFr@0700 [facility] Last Admin: 11/14/17 06:46 Dose: 75 mcg Losartan Potassium (Cozaar -) 50 mg PO BID [facility] Last Admin: 11/14/17 11:34 Dose: 50 mg Metoprolol Succinate (Toprol Xl -) 100 mg PO DAILY [facility] Last Admin: 11/14/17 11:34 Dose: 100 mg Timolol Maleate (Timoptic 0.5%) 1 drop OU BID [facility] Last Admin: 11/14/17 11:36 Dose: 1 drop Ursodiol (Actigal -) 300 mg PO BID [facility] Last Admin: 11/14/17 11:35 Dose: 300 mg Warfarin Sodium (Coumadin -) 2 mg PO ONCE@1800 ONE Stop: 11/14/17 18:01 Review of Systems - Review of Systems Constitutional: no symptoms reported Respiratory: Denies: Cough or Sputum Production Cardiovascular: As noted above Gastrointestinal: denies Nausea, Vomiting, Diarrhea, Constipation or Abdominal Pain Genitourinary: No symptoms reported Musculoskeletal: Degenerative Joint Disease Endocrine: No symptoms reported Vital Signs: Last Vital Signs Temp Pulse Resp BP Pulse Ox 98.4 F 73 20 152/73 98 11/14/17 06:33 11/14/17 06:33 11/14/17 06:33 11/14/17 06:33 11/13/17 21:00 Intake & Output 11/11/17 11/12/17 11/13/17 11/14/17 23:59 23:59 23:59 23:59 Intake Total 1950 3030 1400 600 Balance 1950 3030 1400 600 Constitutional: No Distress, Calm Neck: Supple Negative JVD Respiratory: Clear to A&P Bilaterally Cardiovascular: S1 S2 Regular Rate Rhythm Grade 2-3/6 ELIZABETH Gastrointestinal: Soft Benign Normal Bowel Sounds Ext: No Edema Labs: CBC, BMP 11/14/17 05:35 11/14/17 05:35 Hepatic Panel Total Bilirubin 0.4 mg/dL (0.2-1.0) D 11/14/17 05:35 Direct Bilirubin 0.2 mg/dL (0.0-0.2) 11/14/17 05:35 AST 12 U/L (15-37) L 11/14/17 05:35 ALT 15 U/L (12-78) 11/14/17 05:35 Alkaline Phosphatase 109 U/L (45-117) 11/14/17 05:35 Albumin 2.3 g/dl (3.4-5.0) L 11/14/17 05:35 INR, PTT INR 1.11 (0.82-1.09) 11/14/17 05:35 Assessment/Plan ASSESSMENT: 1. Resolved abdominal pain consistent with fecal impaction and, 2. Retained stones post cholecystectomy with biliary duct dilatation post therapeutic ERCP/sphincterotomy 3. CAD angina pectoris, stable 4. 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 Moderate aortic valve stenosis 6. Paroxysmal atrial fibrillation currently in sinus rhythm with sub- therapeutic INR, resumed A/C with Coumadin 7. 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 HTN/HCVD 9. Hyperlipidemia 10. Hypothyroidism PLAN: 1. Antibiotic as per the primary team 2. Continue Losartan 3. Continue Toprol XL 4. Continue Norvasc 5. Continue Lipitor 6. Continue Coumadin with caution and close monitoring of CBC and INR Murray Willoughby M.D.
[2017-11-14] MEDS ORDERED: ONDANSETRON 4 MG/2 ML VIAL IVPB PRN (13:40)
[2017-11-14] MEDS: PANTOPRAZOLE SODIUM 40 MG VIAL IVPB SCH (14:01)
[2017-11-14] MEDS: SODIUM CHLORIDE 1,000 ML IV SCH (14:02)
--- NOTE | 2017-11-14 15:29 | PN ---
GI Progress Note Subjective: GI NOte: Has developed sudden onset vomiting with the sense that food would pass through her esophagus. She notes pharyngeal gurgling but no choking. She denies abdominal pain - Objective Vital Signs: Vital Signs Temperature 96.9 F L 11/14/17 15:02 Pulse Rate 70 11/14/17 15:02 Respiratory Rate 18 11/14/17 15:02 Blood Pressure 130/74 11/14/17 15:02 O2 Sat by Pulse Oximetry (%) 98 11/13/17 21:00 Constitutional: Anxious ...Auscultate: Yes: Normoactive Bowel Sounds ...Palpate: Yes: Soft, Other (mild epigastric tenderness) Labs: CBC, BMP 11/14/17 05:35 11/14/17 05:35 INR, PTT INR 1.11 (0.82-1.09) 11/14/17 05:35 Problem List - Problems (1) Colic, biliary Code(s): K80.50 - CALCULUS OF BILE DUCT W/O CHOLANGITIS OR CHOLECYST W/O OBST (2) Constipation Code(s): K59.00 - CONSTIPATION, UNSPECIFIED Qualifiers: Constipation type: unspecified constipation type Qualified Code(s): K59.00 - Constipation, unspecified (3) Bile duct calculus Code(s): K80.50 - CALCULUS OF BILE DUCT W/O CHOLANGITIS OR CHOLECYST W/O OBST Qualifiers: Cholecystitis presence: without cholecystitis Biliary obstruction: with biliary obstruction Qualified Code(s): K80.51 - Calculus of bile duct without cholangitis or cholecystitis with obstruction (4) Vomiting Assessment/Plan: Etiology is not clear. Doubt pancreatitis in absence of pain but may have stent migration so will get FUA Code(s): R11.10 - VOMITING, UNSPECIFIED
[2017-11-14] MEDS ORDERED: WARFARIN NA 2 MG TABLET (UD) PO ONE (18:00)
[2017-11-14] MEDS ORDERED: PT OWN MED DRAWER 7, Y5N ONE ×2 (18:05→22:42)
[2017-11-14] MEDS: ATORVASTATIN CA 10 MG TABLET (FP) PO SCH (22:31)
[2017-11-14] MEDS: LATANOPROST 0.005% OPHTH SOLN 2.5ML BOTTLE OU SCH (22:44)
[2017-11-15] MEDS: METRONIDAZOLE 500 MG PREMIXED 500 MG/100 ML MG IVPB SCH ×3 (01:43→17:18)
[2017-11-15] MEDS: LEVOTHYROXINE NA 50 MCG TABLET (FP) PO SCH (06:41)
[2017-11-15] MEDS: SODIUM CHLORIDE 1,000 ML IV SCH ×2 (08:34→17:16)
[2017-11-15 09:35] LABS: INR 1.16 (0.82-1.09); PROTHROMBIN TIME (PATIENT) 13.1 SEC (9.98-11.88)
[2017-11-15] MEDS ORDERED: PT OWN MED DRAWER 7, Y5N ONE ×4 (10:32→23:49)
[2017-11-15] MEDS: BRIMONIDINE TARTRATE 0.2% OPHTHALMIC 5 ML BOTTLE OU SCH (10:43)
[2017-11-15] MEDS: CEFTRIAXONE 1 G/50 ML PREMIX 50 ML IVPB SCH (10:44)
[2017-11-15] MEDS: LOSARTAN POTASSIUM 50 MG TABLET (FP) PO SCH ×2 (10:45→23:59)
[2017-11-15] MEDS: PANTOPRAZOLE SODIUM 40 MG VIAL IVPB SCH (10:46)
[2017-11-15] MEDS: amLODIPine BESYLATE 5 MG TABLET (FP) PO SCH (10:46)
[2017-11-15] MEDS: TIMOLOL 0.5% OPHTHALMIC SOL 5 ML BOTTLE OU SCH (10:46)
[2017-11-15] MEDS: METOPROLOL SUCCINATE 100 MG TAB.SR.24H (FP) PO SCH (10:47)
[2017-11-15] MEDS: CHOLECALCIFEROL (VITAMIN D3) 400 UNIT TABLET (FP) PO SCH (10:47)
[2017-11-15] MEDS: URSODIOL 300 MG CAPSULE PO SCH ×2 (10:48→21:28)
[2017-11-15 12:29] LABS: BASO % 1.3 % (0-2.0); EOS % 2.8 % (0-4.5); HEMATOCRIT 33.3 % (32.4-45.2); HEMOGLOBIN 10.9 GM/dL (10.7-15.3); LYMPH % 12.7 % (8-40); MCH 30.8 pg (25.7-33.7); MCHC 32.7 g/dl (32.0-36.0); MEAN CELL VOLUME 94.1 fl (80-96); MEAN PLT VOLUME 8.4 fl (7.5-11.1); MONO % 9.7 % (3.8-10.2); NEUT % 73.5 % (42.8-82.8); PLATELET COUNT 220 K/MM3 (134-434); RBC 3.53 M/mm3 (3.60-5.2); WHITE BLOOD COUNT 6.3 K/mm3 (4.0-10.0)
[2017-11-15 12:51] LABS: AMYLASE 40 U/L (25-115); LIPASE 124 U/L (73-393)
[2017-11-15 12:54] LABS: ALBUMIN 2.4 g/dl (3.4-5.0); ANION GAP 8 (8-16); BLOOD UREA NITROGEN 7 mg/dL (7-18); CALCIUM 8.4 mg/dL (8.5-10.1); CHLORIDE 106 mmol/L (98-107); CO2 27 mmol/L (21-32); GLUCOSE,RANDOM 107 mg/dL (74-106); POTASSIUM 3.5 mmol/L (3.5-5.1); SODIUM 141 mmol/L (136-145)
[2017-11-15 12:57] LABS: ALK PHOS 107 U/L (45-117); BILIRUBIN,TOTAL 0.5 mg/dL (0.2-1.0); CREATININE 0.5 mg/dL (0.55-1.02); SGOT/AST 8 U/L (15-37); SGPT/ALT 12 U/L (12-78); TOT PROT 6.5 g/dl (6.4-8.2)
[2017-11-15] MEDS: LACTATED RINGERS SOLUTION 1,000 ML/1,000 ML INFUS.BAG IV SCH (13:31)
[2017-11-15] MEDS: METHENAMINE HIPPURATE PO SCH ×2 (13:31→13:32)
--- NOTE | 2017-11-15 13:44 | PN ---
Progress Note, Physician Chief Complaint: Events noted episode of nausea Currently kept NPO History of Present Illness: Patient was seen and examined. Awake and alert. Chart was reviewed Denies chest pain, SOB or palpitations As outlined - Current Medication List Current Medications: Active Medications Acetaminophen (Tylenol -) 650 mg PO Q4H PRN PRN Reason: FEVER OR PAIN Last Admin: 11/12/17 22:15 Dose: 650 mg Amlodipine Besylate (Norvasc -) 5 mg PO DAILY [facility] Last Admin: 11/15/17 10:46 Dose: 5 mg Atorvastatin Calcium (Lipitor -) 10 mg PO HS [facility] Last Admin: 11/14/17 22:31 Dose: Not Given Benzocaine (Americaine Ointment -) 1 applic [place] Q6H PRN PRN Reason: PAIN Last Admin: 11/14/17 11:49 Dose: 1 applic Brimonidine Tartrate (Alphagan 0.2% -) 1 drop OU BID [facility] Last Admin: 11/15/17 10:43 Dose: 1 drop Cholecalciferol (Vitamin D3 -) 400 unit PO DAILY [facility] Last Admin: 11/15/17 10:47 Dose: Not Given Metronidazole (Flagyl 500mg Premixed Ivpb -) 500 mg in 100 mls @ 100 mls/hr IVPB Q8H-IV [facility] Last Admin: 11/15/17 12:12 Dose: 100 mls/hr CEFTRIAXONE 1 G/50 ML PREMIX (Ceftriaxone 1 Gm-D5w Bag) 50 mls @ 100 mls/hr IVPB DAILY [facility] Last Admin: 11/15/17 10:44 Dose: 100 mls/hr Sodium Chloride (Normal Saline -) 1,000 mls @ 60 mls/hr IV ASDIR [facility] Last Admin: 11/15/17 08:34 Dose: 60 mls/hr Latanoprost (Xalatan 0.005% Eye Drops -) 1 drop OU HS [facility] Last Admin: 11/14/17 22:44 Dose: 1 drop Levothyroxine Sodium (Synthroid -) 50 mcg PO SuTuThSa@0700 [facility] Last Admin: 11/15/17 06:41 Dose: Not Given Levothyroxine Sodium (Synthroid -) 75 mcg PO MoWeFr@0700 [facility] Last Admin: 11/14/17 06:46 Dose: 75 mcg Losartan Potassium (Cozaar -) 50 mg PO BID [facility] Last Admin: 11/15/17 10:45 Dose: 50 mg Metoprolol Succinate (Toprol Xl -) 100 mg PO DAILY [facility] Last Admin: 11/15/17 10:47 Dose: 100 mg Ondansetron HCl (Zofran Injection) 4 mg IVPB Q4H PRN PRN Reason: NAUSEA AND/OR VOMITING Last Admin: 11/14/17 14:01 Dose: 4 mg Pantoprazole Sodium (Protonix Iv) 40 mg IVPB DAILY [facility] Last Admin: 11/15/17 10:46 Dose: 40 mg Timolol Maleate (Timoptic 0.5%) 1 drop OU BID [facility] Last Admin: 11/15/17 10:46 Dose: 1 drop Ursodiol (Actigal -) 300 mg PO BID [facility] Last Admin: 11/15/17 10:48 Dose: Not Given - Objective Vital Signs: Vital Signs Temperature 98.6 F 11/15/17 10:00 Pulse Rate 78 11/15/17 10:00 Respiratory Rate 20 11/15/17 10:00 Blood Pressure 144/76 11/15/17 10:00 O2 Sat by Pulse Oximetry (%) 92 L 11/15/17 09:00 Eyes: Yes: PERRL HENT: Yes: Atraumatic Neck: Yes: Supple Cardiovascular: Yes: Regular Rate and Rhythm, Murmur (2/6 ELIZABETH), S1, S2 Respiratory: Yes: CTA Bilaterally Gastrointestinal: Yes: Normal Bowel Sounds, Soft. No: Tenderness Edema: No Additional Findings/Remarks: - Review of Systems Constitutional: no fever or chills Respiratory: Denies: Cough or Sputum Production Cardiovascular: Denies: chest pain, shortness of breath, palpitations Gastrointestinal: denies Nausea, Vomiting, Diarrhea, Constipation or Abdominal Pain Genitourinary: No symptoms reported Musculoskeletal: Degenerative Joint Disease Neuro: Denies seizures, syncope Labs: CBC, BMP 11/15/17 12:00 11/15/17 12:00 INR, PTT INR 1.16 (0.82-1.09) H 11/15/17 08:30 Problem List - Problems (1) Abdominal pain Code(s): R10.9 - UNSPECIFIED ABDOMINAL PAIN Qualifiers: Abdominal location: left lower quadrant Qualified Code(s): R10.32 - Left lower quadrant pain (2) Coronary artery disease Code(s): I25.10 - ATHSCL HEART DISEASE OF [place] CORONARY ARTERY W/O ANG PCTRS Qualifiers: Coronary Disease-Associated Artery/Lesion type: ruby artery [place] vs. transplanted heart: ruby heart Associated angina: without angina Qualified Code(s): I25.10 - Atherosclerotic heart disease of [place] coronary artery without angina pectoris (3) Pacemaker Code(s): Z95.0 - PRESENCE OF CARDIAC PACEMAKER (4) Bile duct calculus Code(s): K80.50 - CALCULUS OF BILE DUCT W/O CHOLANGITIS OR CHOLECYST W/O OBST Qualifiers: Cholecystitis presence: without cholecystitis Biliary obstruction: with biliary obstruction Qualified Code(s): K80.51 - Calculus of bile duct without cholangitis or cholecystitis with obstruction (5) Dilated cbd, acquired Code(s): K83.8 - OTHER SPECIFIED DISEASES OF BILIARY TRACT (6) Hyperlipidemia Code(s): E78.5 - HYPERLIPIDEMIA, UNSPECIFIED Qualifiers: Hyperlipidemia type: pure hypercholesterolemia Qualified Code(s): E78.00 - Pure hypercholesterolemia, unspecified (7) Hypertension Code(s): I10 - ESSENTIAL (PRIMARY) HYPERTENSION Qualifiers: Hypertension type: essential hypertension Qualified Code(s): I10 - Essential (primary) hypertension (8) Hypothyroidism Code(s): E03.9 - HYPOTHYROIDISM, UNSPECIFIED Qualifiers: Hypothyroidism type: unspecified Qualified Code(s): E03.9 - Hypothyroidism , unspecified (9) Moderate aortic valve stenosis Code(s): I35.0 - NONRHEUMATIC AORTIC (VALVE) STENOSIS (10) Neurocardiogenic syncope Code(s): R55 - SYNCOPE AND COLLAPSE (11) Paroxysmal atrial fibrillation Code(s): I48.0 - PAROXYSMAL ATRIAL FIBRILLATION (12) Urinary tract infection Code(s): N39.0 - URINARY TRACT INFECTION, SITE NOT SPECIFIED Qualifiers: Urinary tract infection type: site unspecified Assessment/Plan 1. Resolved abdominal pain consistent with fecal impaction 2. Retained stones post cholecystectomy with biliary duct dilatation post therapeutic ERCP/sphincterotomy and biliary stent 3. CAD angina pectoris, stable 4. 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 Moderate aortic valve stenosis 6. Paroxysmal atrial fibrillation currently in sinus rhythm with sub- therapeutic INR, resumed A/C with Coumadin 7. 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 HTN/HCVD 9. Hyperlipidemia 10. Hypothyroidism PLAN: 1. Antibiotic as per the primary team 2. Continue Losartan, Toprol XL and Norvasc 3. Continue Lipitor 4. Continue Coumadin with caution and close monitoring of CBC and INR 5. GI input to follow Further plans are to follow Alejandro Elise MD
--- NOTE | 2017-11-15 14:33 | PN ---
Progress Note, Physician Chief Complaint: in bed still bringing up clear fluid, no cough no CP GI f/u - Current Medication List Current Medications: Active Medications Acetaminophen (Tylenol -) 650 mg PO Q4H PRN PRN Reason: FEVER OR PAIN Last Admin: 11/12/17 22:15 Dose: 650 mg Amlodipine Besylate (Norvasc -) 5 mg PO DAILY [facility] Last Admin: 11/15/17 10:46 Dose: 5 mg Atorvastatin Calcium (Lipitor -) 10 mg PO HS [facility] Last Admin: 11/14/17 22:31 Dose: Not Given Benzocaine (Americaine Ointment -) 1 applic [place] Q6H PRN PRN Reason: PAIN Last Admin: 11/14/17 11:49 Dose: 1 applic Brimonidine Tartrate (Alphagan 0.2% -) 1 drop OU BID [facility] Last Admin: 11/15/17 10:43 Dose: 1 drop Cholecalciferol (Vitamin D3 -) 400 unit PO DAILY [facility] Last Admin: 11/15/17 10:47 Dose: Not Given Metronidazole (Flagyl 500mg Premixed Ivpb -) 500 mg in 100 mls @ 100 mls/hr IVPB Q8H-IV [facility] Last Admin: 11/15/17 12:12 Dose: 100 mls/hr CEFTRIAXONE 1 G/50 ML PREMIX (Ceftriaxone 1 Gm-D5w Bag) 50 mls @ 100 mls/hr IVPB DAILY [facility] Last Admin: 11/15/17 10:44 Dose: 100 mls/hr Sodium Chloride (Normal Saline -) 1,000 mls @ 60 mls/hr IV ASDIR [facility] Last Admin: 11/15/17 08:34 Dose: 60 mls/hr Latanoprost (Xalatan 0.005% Eye Drops -) 1 drop OU HS [facility] Last Admin: 11/14/17 22:44 Dose: 1 drop Levothyroxine Sodium (Synthroid -) 50 mcg PO SuTuThSa@0700 [facility] Last Admin: 11/15/17 06:41 Dose: Not Given Levothyroxine Sodium (Synthroid -) 75 mcg PO MoWeFr@0700 [facility] Last Admin: 11/14/17 06:46 Dose: 75 mcg Losartan Potassium (Cozaar -) 50 mg PO BID [facility] Last Admin: 11/15/17 10:45 Dose: 50 mg Metoprolol Succinate (Toprol Xl -) 100 mg PO DAILY [facility] Last Admin: 11/15/17 10:47 Dose: 100 mg Ondansetron HCl (Zofran Injection) 4 mg IVPB Q4H PRN PRN Reason: NAUSEA AND/OR VOMITING Last Admin: 11/14/17 14:01 Dose: 4 mg Pantoprazole Sodium (Protonix Iv) 40 mg IVPB DAILY [facility] Last Admin: 11/15/17 10:46 Dose: 40 mg Timolol Maleate (Timoptic 0.5%) 1 drop OU BID [facility] Last Admin: 11/15/17 10:46 Dose: 1 drop Ursodiol (Actigal -) 300 mg PO BID [facility] Last Admin: 11/15/17 10:48 Dose: Not Given Warfarin Sodium (Coumadin -) 2 mg PO DAILY@1800 [facility] - Objective Vital Signs: Vital Signs Temperature 98.6 F 11/15/17 10:00 Pulse Rate 78 11/15/17 10:00 Respiratory Rate 20 11/15/17 10:00 Blood Pressure 144/76 11/15/17 10:00 O2 Sat by Pulse Oximetry (%) 92 L 11/15/17 09:00 Constitutional: Yes: No Distress, Calm Eyes: Yes: Conjunctiva Clear HENT: Yes: Atraumatic Neck: Yes: Supple Cardiovascular: Yes: Regular Rate and Rhythm Respiratory: Yes: CTA Bilaterally Gastrointestinal: Yes: Soft. No: Distention, Tenderness Genitourinary: No: CVA Tenderness - Left, CVA Tenderness - Right Musculoskeletal: No: Joint Stiffness, Joint Swelling Extremities: No: Cold, Cool, Cyanosis Edema: No Integumentary: No: Rash, Venous Stasis Changes Neurological: Yes: WNL, Alert, Oriented ...Motor Strength: WNL Psychiatric: Yes: WNL, Alert, Oriented. No: Agitated, Suicidal Ideation Labs: CBC, BMP 11/15/17 12:00 11/15/17 12:00 INR, PTT INR 1.16 (0.82-1.09) H 11/15/17 08:30 - ....Imaging Other: Report Reviewed Assessment/Plan The patient is a 87 year old female, with a significant past medical history of Atrial fibrillation (on Coumadin), HTN, HLD, CAD s/p stents and pacemaker, Hypothyroidism, Diverticulitis, CBD stone extracted via ERCP 10/29; recurrent UTIs admitted with abdominal pain, recurrent CBD stones s/p ERCP and stones extractions; vomiting check CXR, Ba swallow GI series IV ATB f/u labs; GI f/u started on coumadin f/u INR falls decubs PFX d/w pt and staff
--- NOTE | 2017-11-15 17:30 | PN ---
GI Progress Note Subjective: GI NOte: Still not feeling well. Feels that food is not traversing the UGI system but denies dysphagia. No cough but her pneumonia presented similarly last year. FUA reveals the stent to be in place. No SBO - Objective Vital Signs: Vital Signs Temperature 98.6 F 11/15/17 17:05 Pulse Rate 79 11/15/17 17:05 Respiratory Rate 20 11/15/17 17:05 Blood Pressure 143/86 11/15/17 17:05 O2 Sat by Pulse Oximetry (%) 92 L 11/15/17 09:00 Constitutional: Anxious ...Auscultate: Yes: Hypoactive Bowel Sounds ...Palpate: Yes: Soft, Other (nontender) Labs: CBC, BMP 11/15/17 12:00 11/15/17 12:00 INR, PTT INR 1.16 (0.82-1.09) H 11/15/17 08:30 Problem List - Problems (1) Colic, biliary Code(s): K80.50 - CALCULUS OF BILE DUCT W/O CHOLANGITIS OR CHOLECYST W/O OBST (2) Constipation Code(s): K59.00 - CONSTIPATION, UNSPECIFIED Qualifiers: Constipation type: unspecified constipation type Qualified Code(s): K59.00 - Constipation, unspecified (3) Bile duct calculus Code(s): K80.50 - CALCULUS OF BILE DUCT W/O CHOLANGITIS OR CHOLECYST W/O OBST Qualifiers: Cholecystitis presence: without cholecystitis Biliary obstruction: with biliary obstruction Qualified Code(s): K80.51 - Calculus of bile duct without cholangitis or cholecystitis with obstruction (4) Vomiting Assessment/Plan: Etiology unclear but will get UGI to exclude some component of obstruction by the stent and a CXR to exclude pneumonia given a similar presentation last year. Code(s): R11.10 - VOMITING, UNSPECIFIED
[2017-11-15] MEDS ORDERED: WARFARIN NA 2 MG TABLET (UD) PO SCH (18:00)
[2017-11-15] MEDS: ATORVASTATIN CA 10 MG TABLET (FP) PO SCH (23:59)
[2017-11-16] MEDS: LATANOPROST 0.005% OPHTH SOLN 2.5ML BOTTLE OU SCH ×2 (00:01→22:13)
[2017-11-16] MEDS: TIMOLOL 0.5% OPHTHALMIC SOL 5 ML BOTTLE OU SCH ×3 (00:01→22:13)
[2017-11-16] MEDS: METRONIDAZOLE 500 MG PREMIXED 500 MG/100 ML MG IVPB SCH ×3 (03:06→17:55)
[2017-11-16] MEDS: SODIUM CHLORIDE 1,000 ML IV SCH ×2 (03:50→12:36)
[2017-11-16] MEDS: LEVOTHYROXINE NA 75 MCG TABLET (FP) PO SCH (06:12)
[2017-11-16 08:20] LABS: BASO % 1.2 % (0-2.0); HEMOGLOBIN 11.2 GM/dL (10.7-15.3); LYMPH % 13.7 % (8-40); MCH 30.9 pg (25.7-33.7); MEAN CELL VOLUME 93.7 fl (80-96); MEAN PLT VOLUME 8.4 fl (7.5-11.1); MONO % 10.5 % (3.8-10.2); NEUT % 69.6 % (42.8-82.8); PLATELET COUNT 235 K/MM3 (134-434); RBC 3.63 M/mm3 (3.60-5.2); RDW 13.8 % (11.6-15.6)
[2017-11-16 08:41] LABS: INR 1.29 (0.82-1.09); PROTHROMBIN TIME (PATIENT) 14.6 SEC (9.98-11.88)
[2017-11-16 08:51] LABS: ALBUMIN 2.6 g/dl (3.4-5.0); ANION GAP 9 (8-16); BILIRUBIN,DIRECT < 0.2 mg/dL (0.0-0.2); BLOOD UREA NITROGEN 8 mg/dL (7-18); CALCIUM 8.6 mg/dL (8.5-10.1); CHLORIDE 104 mmol/L (98-107); CO2 26 mmol/L (21-32); CREATININE 0.5 mg/dL (0.55-1.02); GLUCOSE,RANDOM 72 mg/dL (74-106); POTASSIUM 3.2 mmol/L (3.5-5.1); SGOT/AST 8 U/L (15-37); SGPT/ALT 12 U/L (12-78); SODIUM 139 mmol/L (136-145)
[2017-11-16 08:53] LABS: ALK PHOS 105 U/L (45-117); BILIRUBIN,TOTAL 0.5 mg/dL (0.2-1.0); TOT PROT 6.6 g/dl (6.4-8.2)
--- NOTE | 2017-11-16 09:24 | PN ---
Progress Note, Physician Chief Complaint: still vomiting on/off xrays noted dilated esophagus and distal stricture d/w GI most likely achalasia; for EGD on tuesday; hold coumadin again - Current Medication List Current Medications: Active Medications Acetaminophen (Tylenol -) 650 mg PO Q4H PRN PRN Reason: FEVER OR PAIN Last Admin: 11/12/17 22:15 Dose: 650 mg Amlodipine Besylate (Norvasc -) 5 mg PO DAILY [facility] Last Admin: 11/15/17 10:46 Dose: 5 mg Atorvastatin Calcium (Lipitor -) 10 mg PO HS [facility] Last Admin: 11/15/17 23:59 Dose: Not Given Benzocaine (Americaine Ointment -) 1 applic [place] Q6H PRN PRN Reason: PAIN Last Admin: 11/14/17 11:49 Dose: 1 applic Brimonidine Tartrate (Alphagan 0.2% -) 1 drop OU BID [facility] Last Admin: 11/16/17 00:00 Dose: 1 drop Cholecalciferol (Vitamin D3 -) 400 unit PO DAILY [facility] Last Admin: 11/15/17 10:47 Dose: Not Given Metronidazole (Flagyl 500mg Premixed Ivpb -) 500 mg in 100 mls @ 100 mls/hr IVPB Q8H-IV [facility] Last Admin: 11/16/17 03:06 Dose: 100 mls/hr CEFTRIAXONE 1 G/50 ML PREMIX (Ceftriaxone 1 Gm-D5w Bag) 50 mls @ 100 mls/hr IVPB DAILY [facility] Last Admin: 11/15/17 10:44 Dose: 100 mls/hr Sodium Chloride (Normal Saline -) 1,000 mls @ 60 mls/hr IV ASDIR [facility] Last Admin: 11/16/17 03:50 Dose: 60 mls/hr Latanoprost (Xalatan 0.005% Eye Drops -) 1 drop OU HS [facility] Last Admin: 11/16/17 00:01 Dose: 1 drop Levothyroxine Sodium (Synthroid -) 50 mcg PO SuTuThSa@0700 [facility] Last Admin: 11/15/17 06:41 Dose: Not Given Levothyroxine Sodium (Synthroid -) 75 mcg PO MoWeFr@0700 [facility] Last Admin: 11/16/17 06:12 Dose: Not Given Losartan Potassium (Cozaar -) 50 mg PO BID [facility] Last Admin: 11/15/17 23:59 Dose: Not Given Metoprolol Succinate (Toprol Xl -) 100 mg PO DAILY [facility] Last Admin: 11/15/17 10:47 Dose: 100 mg Ondansetron HCl (Zofran Injection) 4 mg IVPB Q4H PRN PRN Reason: NAUSEA AND/OR VOMITING Last Admin: 11/14/17 14:01 Dose: 4 mg Pantoprazole Sodium (Protonix Iv) 40 mg IVPB DAILY [facility] Last Admin: 11/15/17 10:46 Dose: 40 mg Potassium Chloride (K-Dur -) 20 meq PO DAILY [facility] Timolol Maleate (Timoptic 0.5%) 1 drop OU BID [facility] Last Admin: 11/16/17 00:01 Dose: 1 drop Ursodiol (Actigal -) 300 mg PO BID [facility] Last Admin: 11/15/17 21:28 Dose: Not Given Warfarin Sodium (Coumadin -) 2 mg PO DAILY@1800 [facility] Last Admin: 11/15/17 17:18 Dose: 2 mg - Objective Vital Signs: Vital Signs Temperature 98.8 F 11/16/17 07:04 Pulse Rate 74 11/16/17 07:04 Respiratory Rate 20 11/16/17 07:04 Blood Pressure 124/68 11/16/17 07:04 O2 Sat by Pulse Oximetry (%) 92 L 11/15/17 21:00 Constitutional: Yes: No Distress, Calm Eyes: Yes: Conjunctiva Clear HENT: Yes: Atraumatic Neck: Yes: Supple Cardiovascular: Yes: Regular Rate and Rhythm Respiratory: Yes: CTA Bilaterally Gastrointestinal: Yes: Soft. No: Distention, Tenderness Genitourinary: No: CVA Tenderness - Left, CVA Tenderness - Right Musculoskeletal: No: Joint Stiffness, Joint Swelling Extremities: No: Cold, Cool, Cyanosis Edema: No Integumentary: No: Rash, Venous Stasis Changes Neurological: Yes: WNL, Alert, Oriented ...Motor Strength: WNL Psychiatric: Yes: WNL, Alert, Oriented. No: Agitated, Suicidal Ideation Labs: CBC, BMP 11/16/17 06:00 11/16/17 06:00 INR, PTT INR 1.29 (0.82-1.09) H 11/16/17 06:00 - ....Imaging Other: Report Reviewed Assessment/Plan The patient is a 87 year old female, with a significant past medical history of Atrial fibrillation (on Coumadin), HTN, HLD, CAD s/p stents and pacemaker, Hypothyroidism, Diverticulitis, CBD stone extracted via ERCP 10/29; recurrent UTIs admitted with abdominal pain, recurrent CBD stones s/p ERCP and stones extractions; achalasia vomiting for EGD on 11/18 IV ATB f/u labs; GI f/u hold coumadin for EGD falls decubs PFX d/w pt and staff
[2017-11-16] MEDS ORDERED: POTASSIUM CHLORIDE TABS 20 MEQ TABLET.ER (FP) PO SCH (10:00)
[2017-11-16] MEDS: URSODIOL 300 MG CAPSULE PO SCH ×2 (11:33→22:09)
[2017-11-16] MEDS ORDERED: PT OWN MED DRAWER 7, Y5N ONE ×2 (11:36→23:04)
[2017-11-16] MEDS: BRIMONIDINE TARTRATE 0.2% OPHTHALMIC 5 ML BOTTLE OU SCH ×3 (11:42→22:12)
[2017-11-16] MEDS: PANTOPRAZOLE SODIUM 40 MG VIAL IVPB SCH (11:43)
[2017-11-16] MEDS: CHOLECALCIFEROL (VITAMIN D3) 400 UNIT TABLET (FP) PO SCH (11:44)
[2017-11-16] MEDS: METOPROLOL SUCCINATE 100 MG TAB.SR.24H (FP) PO SCH (11:44)
[2017-11-16] MEDS: LOSARTAN POTASSIUM 50 MG TABLET (FP) PO SCH ×2 (11:45→22:09)
[2017-11-16] MEDS: CEFTRIAXONE 1 G/50 ML PREMIX 50 ML IVPB SCH (11:45)
[2017-11-16] MEDS: amLODIPine BESYLATE 5 MG TABLET (FP) PO SCH (12:37)
--- NOTE | 2017-11-16 12:54 | PN ---
Progress Note (short form) - Note Progress Note: GI_ Case discussed with Arturo. The picture is most consistent with achalasia as I was able to pass the ERCP scope and given the dilation. I have arranged to do EGD and dilatation or Botox injection on 11/18/17. Please refrain from anticoagulation. Discussed with Dr Richardson. Problem List - Problems (1) Colic, biliary Code(s): K80.50 - CALCULUS OF BILE DUCT W/O CHOLANGITIS OR CHOLECYST W/O OBST (2) Constipation Code(s): K59.00 - CONSTIPATION, UNSPECIFIED Qualifiers: Constipation type: unspecified constipation type Qualified Code(s): K59.00 - Constipation, unspecified (3) Bile duct calculus Code(s): K80.50 - CALCULUS OF BILE DUCT W/O CHOLANGITIS OR CHOLECYST W/O OBST Qualifiers: Cholecystitis presence: without cholecystitis Biliary obstruction: with biliary obstruction Qualified Code(s): K80.51 - Calculus of bile duct without cholangitis or cholecystitis with obstruction (4) Vomiting Code(s): R11.10 - VOMITING, UNSPECIFIED
[2017-11-16] MEDS: POTASSIUM CHLORIDE ORAL LIQUID 20 MEQ/15 ML PO SCH (13:58)
--- NOTE | 2017-11-16 15:12 | PN ---
Progress Note, Physician History of Present Illness: Dysphagia for liquids and solids planned for EGD and botox injection. - Current Medication List Current Medications: Active Medications Acetaminophen (Tylenol -) 650 mg PO Q4H PRN PRN Reason: FEVER OR PAIN Last Admin: 11/12/17 22:15 Dose: 650 mg Amlodipine Besylate (Norvasc -) 5 mg PO DAILY [facility] Last Admin: 11/16/17 12:37 Dose: 5 mg Atorvastatin Calcium (Lipitor -) 10 mg PO HS [facility] Last Admin: 11/15/17 23:59 Dose: Not Given Benzocaine (Americaine Ointment -) 1 applic DC Q6H PRN PRN Reason: PAIN Last Admin: 11/14/17 11:49 Dose: 1 applic Botulinum Toxin Type A (Botox (Nf) -) 100 units IM ONCE ONE Stop: 11/16/17 12:39 Brimonidine Tartrate (Alphagan 0.2% -) 1 drop OU BID [facility] Last Admin: 11/16/17 11:42 Dose: 1 drop Cholecalciferol (Vitamin D3 -) 400 unit PO DAILY [facility] Last Admin: 11/16/17 11:44 Dose: Not Given Metronidazole (Flagyl 500mg Premixed Ivpb -) 500 mg in 100 mls @ 100 mls/hr IVPB Q8H-IV [facility] Last Admin: 11/16/17 12:34 Dose: 100 mls/hr CEFTRIAXONE 1 G/50 ML PREMIX (Ceftriaxone 1 Gm-D5w Bag) 50 mls @ 100 mls/hr IVPB DAILY [facility] Last Admin: 11/16/17 11:45 Dose: 100 mls/hr Sodium Chloride (Normal Saline -) 1,000 mls @ 50 mls/hr IV ASDIR [facility] Last Admin: 11/16/17 12:36 Dose: 50 mls/hr Latanoprost (Xalatan 0.005% Eye Drops -) 1 drop OU HS [facility] Last Admin: 11/16/17 00:01 Dose: 1 drop Levothyroxine Sodium (Synthroid -) 50 mcg PO SuTuThSa@0700 [facility] Last Admin: 11/15/17 06:41 Dose: Not Given Levothyroxine Sodium (Synthroid -) 75 mcg PO MoWeFr@0700 [facility] Last Admin: 11/16/17 06:12 Dose: Not Given Losartan Potassium (Cozaar -) 50 mg PO BID [facility] Last Admin: 11/16/17 11:45 Dose: 50 mg Metoprolol Succinate (Toprol Xl -) 100 mg PO DAILY [facility] Last Admin: 11/16/17 11:44 Dose: 100 mg Ondansetron HCl (Zofran Injection) 4 mg IVPB Q4H PRN PRN Reason: NAUSEA AND/OR VOMITING Last Admin: 11/14/17 14:01 Dose: 4 mg Pantoprazole Sodium (Protonix Iv) 40 mg IVPB DAILY [facility] Last Admin: 11/16/17 11:43 Dose: 40 mg Potassium Chloride (Potassium Chloride Oral Liquid) 20 meq PO DAILY [facility] Last Admin: 11/16/17 13:58 Dose: 20 meq Timolol Maleate (Timoptic 0.5%) 1 drop OU BID [facility] Last Admin: 11/16/17 11:44 Dose: 1 drop Ursodiol (Actigal -) 300 mg PO BID [facility] Last Admin: 11/16/17 11:33 Dose: Not Given - Objective Vital Signs: Vital Signs Temperature 98.0 F 11/16/17 15:02 Pulse Rate 72 11/16/17 15:02 Respiratory Rate 18 11/16/17 15:02 Blood Pressure 142/87 11/16/17 15:02 O2 Sat by Pulse Oximetry (%) 92 L 11/15/17 21:00 Constitutional: Yes: No Distress, Calm Neck: Yes: Supple Cardiovascular: Yes: Regular Rate and Rhythm Respiratory: Yes: Regular, CTA Bilaterally Gastrointestinal: Yes: Soft, Hypoactive Bowel Sounds, Vomiting Edema: No Labs: CBC, BMP 11/16/17 06:00 11/16/17 06:00 INR, PTT INR 1.29 (0.82-1.09) H 11/16/17 06:00 - ....Imaging Chest X-ray: Report Reviewed (Small pleural effusions) X-ray: Report Reviewed (Distal esophageal stricture achalasia vs malignancy) Problem List - Problems (1) Abdominal pain Code(s): R10.9 - UNSPECIFIED ABDOMINAL PAIN Qualifiers: Abdominal location: left lower quadrant Qualified Code(s): R10.32 - Left lower quadrant pain (2) Dilated cbd, acquired Code(s): K83.8 - OTHER SPECIFIED DISEASES OF BILIARY TRACT (3) Hyperlipidemia Code(s): E78.5 - HYPERLIPIDEMIA, UNSPECIFIED Qualifiers: Hyperlipidemia type: pure hypercholesterolemia Qualified Code(s): E78.00 - Pure hypercholesterolemia, unspecified (4) Hypertension Code(s): I10 - ESSENTIAL (PRIMARY) HYPERTENSION Qualifiers: Hypertension type: essential hypertension Qualified Code(s): I10 - Essential (primary) hypertension (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 Code(s): I11.9 - HYPERTENSIVE HEART DISEASE WITHOUT HEART FAILURE (6) Hypothyroidism Code(s): E03.9 - HYPOTHYROIDISM, UNSPECIFIED Qualifiers: Hypothyroidism type: unspecified Qualified Code(s): E03.9 - Hypothyroidism , unspecified (7) Moderate aortic valve stenosis Code(s): I35.0 - NONRHEUMATIC AORTIC (VALVE) STENOSIS (8) Neurocardiogenic syncope Code(s): R55 - SYNCOPE AND COLLAPSE (9) Paroxysmal atrial fibrillation Code(s): I48.0 - PAROXYSMAL ATRIAL FIBRILLATION (10) Urinary tract infection Code(s): N39.0 - URINARY TRACT INFECTION, SITE NOT SPECIFIED Qualifiers: Urinary tract infection type: site unspecified (11) Coronary artery disease Code(s): I25.10 - ATHSCL HEART DISEASE OF [place] CORONARY ARTERY W/O ANG PCTRS Qualifiers: Coronary Disease-Associated Artery/Lesion type: [place] artery [place] vs. transplanted heart: [place] heart Associated angina: without angina Qualified Code(s): I25.10 - Atherosclerotic heart disease of [place] coronary artery without angina pectoris (12) Fecal impaction of colon Code(s): K56.41 - FECAL IMPACTION (13) Pacemaker Code(s): Z95.0 - PRESENCE OF CARDIAC PACEMAKER (14) Bile duct calculus Code(s): K80.50 - CALCULUS OF BILE DUCT W/O CHOLANGITIS OR CHOLECYST W/O OBST Qualifiers: Cholecystitis presence: without cholecystitis Biliary obstruction: with biliary obstruction Qualified Code(s): K80.51 - Calculus of bile duct without cholangitis or cholecystitis with obstruction (15) Colic, biliary Code(s): K80.50 - CALCULUS OF BILE DUCT W/O CHOLANGITIS OR CHOLECYST W/O OBST (16) Achalasia and cardiospasm Code(s): K22.0 - ACHALASIA OF CARDIA (17) Vomiting Code(s): R11.10 - VOMITING, UNSPECIFIED Qualifiers: Vomiting type: unspecified (18) Hypokalemia Code(s): E87.6 - HYPOKALEMIA (19) History of endoscopic retrograde cholangiopancreatography Code(s): Z98.890 - OTHER SPECIFIED POSTPROCEDURAL STATES Assessment/Plan 1. Achalasia 2. Resolved abdominal pain consistent with fecal impaction 3. Retained stones post cholecystectomy with biliary duct dilatation post therapeutic ERCP/sphincterotomy and biliary stent 4. CAD angina pectoris, stable 5. 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 Moderate aortic valve stenosis 7. Paroxysmal atrial fibrillation currently in sinus rhythm with sub- therapeutic INR, resumed A/C with Coumadin 8. 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 HTN/HCVD 10. Hyperlipidemia 11. Hypothyroidism PLAN: 1. Antibiotic course per primary team 2. Continue Losartan 50 bid, Toprol XL 100 qd and Norvasc 5 qd 3. Continue Lipitor 10 qhs, replete K 4. Hold Coumadin pre-EGD, resume once hemostasis achieved 5. Plan for EGD and botox injection vs esophageal dilatation 11/18, ERCP in 3 months
[2017-11-16] MEDS: ATORVASTATIN CA 10 MG TABLET (FP) PO SCH (22:11)
[2017-11-17] MEDS: METRONIDAZOLE 500 MG PREMIXED 500 MG/100 ML MG IVPB SCH ×3 (01:47→17:33)
[2017-11-17] MEDS: LEVOTHYROXINE NA 50 MCG TABLET (FP) PO SCH ×2 (06:42→06:43)
[2017-11-17] MEDS: SODIUM CHLORIDE 1,000 ML IV SCH ×2 (06:44→15:54)
[2017-11-17 07:44] LABS: INR 1.68 (0.82-1.09)
[2017-11-17 08:15] LABS: CHLORIDE 105 mmol/L (98-107); POTASSIUM 3.2 mmol/L (3.5-5.1); SODIUM 140 mmol/L (136-145)
[2017-11-17 08:22] LABS: ANION GAP 11 (8-16); BLOOD UREA NITROGEN 10 mg/dL (7-18); CALCIUM 8.5 mg/dL (8.5-10.1); CO2 24 mmol/L (21-32); CREATININE 0.5 mg/dL (0.55-1.02); GLUCOSE,RANDOM 67 mg/dL (74-106)
[2017-11-17] MEDS ORDERED: PT OWN MED DRAWER 7, Y5N ONE ×3 (09:53→21:58)
[2017-11-17] MEDS: POTASSIUM CHLORIDE ORAL LIQUID 20 MEQ/15 ML PO SCH (09:58)
[2017-11-17] MEDS: METOPROLOL SUCCINATE 100 MG TAB.SR.24H (FP) PO SCH (09:58)
[2017-11-17] MEDS: URSODIOL 300 MG CAPSULE PO SCH ×2 (09:58→21:54)
[2017-11-17] MEDS: amLODIPine BESYLATE 5 MG TABLET (FP) PO SCH (09:58)
[2017-11-17] MEDS: LOSARTAN POTASSIUM 50 MG TABLET (FP) PO SCH ×2 (09:58→21:54)
[2017-11-17] MEDS: BRIMONIDINE TARTRATE 0.2% OPHTHALMIC 5 ML BOTTLE OU SCH ×2 (09:59→21:59)
[2017-11-17] MEDS: CHOLECALCIFEROL (VITAMIN D3) 400 UNIT TABLET (FP) PO SCH (10:00)
[2017-11-17] MEDS: PANTOPRAZOLE SODIUM 40 MG VIAL IVPB SCH (10:00)
[2017-11-17] MEDS: TIMOLOL 0.5% OPHTHALMIC SOL 5 ML BOTTLE OU SCH ×2 (10:00→21:59)
[2017-11-17] MEDS: CEFTRIAXONE 1 G/50 ML PREMIX 50 ML IVPB SCH (10:56)
[2017-11-17] MEDS: ACETAMINOPHEN 325 MG TABLET (FP) PO PRN (12:36)
--- NOTE | 2017-11-17 12:59 | PN ---
Progress Note, Physician History of Present Illness: Dysphagia for liquids and solids planned for EGD and botox injection, can't tolerate clear liquid diet. - Current Medication List Current Medications: Active Medications Acetaminophen (Tylenol -) 650 mg PO Q4H PRN PRN Reason: FEVER OR PAIN Last Admin: 11/17/17 12:36 Dose: 650 mg Amlodipine Besylate (Norvasc -) 5 mg PO DAILY [facility] Last Admin: 11/17/17 09:58 Dose: 5 mg Atorvastatin Calcium (Lipitor -) 10 mg PO HS [facility] Last Admin: 11/16/17 22:11 Dose: 10 mg Benzocaine (Americaine Ointment -) 1 applic IN Q6H PRN PRN Reason: PAIN Last Admin: 11/14/17 11:49 Dose: 1 applic Botulinum Toxin Type A (Botox (Nf) -) 100 units IM ONCE ONE Stop: 11/16/17 12:39 Brimonidine Tartrate (Alphagan 0.2% -) 1 drop OU BID [facility] Last Admin: 11/17/17 09:59 Dose: 1 drop Cholecalciferol (Vitamin D3 -) 400 unit PO DAILY [facility] Last Admin: 11/17/17 10:00 Dose: 400 unit Metronidazole (Flagyl 500mg Premixed Ivpb -) 500 mg in 100 mls @ 100 mls/hr IVPB Q8H-IV [facility] Last Admin: 11/17/17 09:57 Dose: 100 mls/hr CEFTRIAXONE 1 G/50 ML PREMIX (Ceftriaxone 1 Gm-D5w Bag) 50 mls @ 100 mls/hr IVPB DAILY [facility] Last Admin: 11/17/17 10:56 Dose: 100 mls/hr Sodium Chloride (Normal Saline -) 1,000 mls @ 50 mls/hr IV ASDIR [facility] Last Admin: 11/17/17 06:44 Dose: 50 mls/hr Latanoprost (Xalatan 0.005% Eye Drops -) 1 drop OU HS [facility] Last Admin: 11/16/17 22:13 Dose: 1 drop Levothyroxine Sodium (Synthroid -) 50 mcg PO SuTuThSa@0700 [facility] Last Admin: 11/17/17 06:42 Dose: 50 mcg Levothyroxine Sodium (Synthroid -) 75 mcg PO MoWeFr@0700 [facility] Last Admin: 11/16/17 06:12 Dose: Not Given Losartan Potassium (Cozaar -) 50 mg PO BID [facility] Last Admin: 11/17/17 09:58 Dose: 50 mg Metoprolol Succinate (Toprol Xl -) 100 mg PO DAILY [facility] Last Admin: 11/17/17 09:58 Dose: 100 mg Ondansetron HCl (Zofran Injection) 4 mg IVPB Q4H PRN PRN Reason: NAUSEA AND/OR VOMITING Last Admin: 11/14/17 14:01 Dose: 4 mg Pantoprazole Sodium (Protonix Iv) 40 mg IVPB DAILY [facility] Last Admin: 11/17/17 10:00 Dose: 40 mg Potassium Chloride (Potassium Chloride Oral Liquid) 20 meq PO DAILY [facility] Last Admin: 11/17/17 09:58 Dose: 20 meq Timolol Maleate (Timoptic 0.5%) 1 drop OU BID [facility] Last Admin: 11/17/17 10:00 Dose: 1 drop Ursodiol (Actigal -) 300 mg PO BID [facility] Last Admin: 11/17/17 09:58 Dose: 300 mg - Objective Vital Signs: Vital Signs Temperature 98.6 F 11/17/17 10:00 Pulse Rate 80 11/17/17 10:00 Respiratory Rate 20 11/17/17 10:00 Blood Pressure 158/91 11/17/17 10:00 O2 Sat by Pulse Oximetry (%) 93 L 11/16/17 21:00 Constitutional: Yes: No Distress, Calm Neck: Yes: Supple Cardiovascular: Yes: Regular Rate and Rhythm, Murmur (2/6 SM) Respiratory: Yes: Regular, CTA Bilaterally Gastrointestinal: Yes: Soft, Hypoactive Bowel Sounds Edema: No Labs: CBC, BMP 11/16/17 06:00 11/17/17 06:00 INR, PTT INR 1.68 (0.82-1.09) H D 11/17/17 06:00 Problem List - Problems (1) Abdominal pain Code(s): R10.9 - UNSPECIFIED ABDOMINAL PAIN Qualifiers: Abdominal location: left lower quadrant Qualified Code(s): R10.32 - Left lower quadrant pain (2) Dilated cbd, acquired Code(s): K83.8 - OTHER SPECIFIED DISEASES OF BILIARY TRACT (3) Hyperlipidemia Code(s): E78.5 - HYPERLIPIDEMIA, UNSPECIFIED Qualifiers: Hyperlipidemia type: pure hypercholesterolemia Qualified Code(s): E78.00 - Pure hypercholesterolemia, unspecified (4) Hypertension Code(s): I10 - ESSENTIAL (PRIMARY) HYPERTENSION Qualifiers: Hypertension type: essential hypertension Qualified Code(s): I10 - Essential (primary) hypertension (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 Code(s): I11.9 - HYPERTENSIVE HEART DISEASE WITHOUT HEART FAILURE (6) Hypothyroidism Code(s): E03.9 - HYPOTHYROIDISM, UNSPECIFIED Qualifiers: Hypothyroidism type: unspecified Qualified Code(s): E03.9 - Hypothyroidism , unspecified (7) Moderate aortic valve stenosis Code(s): I35.0 - NONRHEUMATIC AORTIC (VALVE) STENOSIS (8) Neurocardiogenic syncope Code(s): R55 - SYNCOPE AND COLLAPSE (9) Paroxysmal atrial fibrillation Code(s): I48.0 - PAROXYSMAL ATRIAL FIBRILLATION (10) Urinary tract infection Code(s): N39.0 - URINARY TRACT INFECTION, SITE NOT SPECIFIED Qualifiers: Urinary tract infection type: site unspecified (11) Coronary artery disease Code(s): I25.10 - ATHSCL HEART DISEASE OF [place] CORONARY ARTERY W/O ANG PCTRS Qualifiers: Coronary Disease-Associated Artery/Lesion type: [place] artery [place] vs. transplanted heart: [place] heart Associated angina: without angina Qualified Code(s): I25.10 - Atherosclerotic heart disease of [place] coronary artery without angina pectoris (12) Fecal impaction of colon Code(s): K56.41 - FECAL IMPACTION (13) Pacemaker Code(s): Z95.0 - PRESENCE OF CARDIAC PACEMAKER (14) Bile duct calculus Code(s): K80.50 - CALCULUS OF BILE DUCT W/O CHOLANGITIS OR CHOLECYST W/O OBST Qualifiers: Cholecystitis presence: without cholecystitis Biliary obstruction: with biliary obstruction Qualified Code(s): K80.51 - Calculus of bile duct without cholangitis or cholecystitis with obstruction (15) Colic, biliary Code(s): K80.50 - CALCULUS OF BILE DUCT W/O CHOLANGITIS OR CHOLECYST W/O OBST (16) Achalasia and cardiospasm Code(s): K22.0 - ACHALASIA OF CARDIA (17) Vomiting Code(s): R11.10 - VOMITING, UNSPECIFIED Qualifiers: Vomiting type: unspecified (18) Hypokalemia Code(s): E87.6 - HYPOKALEMIA (19) History of endoscopic retrograde cholangiopancreatography Code(s): Z98.890 - OTHER SPECIFIED POSTPROCEDURAL STATES Assessment/Plan 1. Dysphagia->Achalasia 2. Resolved abdominal pain consistent with fecal impaction 3. Retained stones post cholecystectomy with biliary duct dilatation post therapeutic ERCP/sphincterotomy and biliary stent 4. CAD angina pectoris, stable 5. 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 Moderate aortic valve stenosis 7. Paroxysmal atrial fibrillation currently in sinus rhythm with sub- therapeutic INR, resumed A/C with Coumadin 8. 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 HTN/HCVD 10. Hyperlipidemia 11. Hypothyroidism PLAN: 1. Antibiotic course per primary team 2. Continue Losartan 50 bid, Toprol XL 100 qd and Norvasc 5 qd 3. Continue Lipitor 10 qhs, replete K 4. Hold Coumadin pre-EGD, resume once hemostasis achieved 5. Plan for EGD and botox injection vs esophageal dilatation 11/18, repeat ERCP in 3 months
[2017-11-17] MEDS ORDERED: PHYTONADIONE 10 MG/1 ML AMP IVPB ONE (14:30)
--- NOTE | 2017-11-17 14:37 | PN ---
GI Progress Note Subjective: GI NOte: Unable to swallow and has burning with oral KCl which I stopped and will give IV. Esophagram reveals a tight distal esophageal stricture which is surprising as she denies any previous dysphagia and the ERCP scope passed without difficulty. This scenario particularly given the esophageal dilation is most consistent with achalasia. I have ordered Botox. I have obtained an informed consent for EGD, biopsy, dilation and Botox injection after informing Chyna of the potential risks of perforation, hemorrhage and aspiration that could lead to surgery. I will give Vitamin K to reverse the warfarin effect. Also having periumbilical pain and has not had a BM since Miralax was stopped. Suspect intestinal colic due to constipation . Will resume miralax after dilation. - Objective Vital Signs: Vital Signs Temperature 98.6 F 11/17/17 10:00 Pulse Rate 80 11/17/17 10:00 Respiratory Rate 20 11/17/17 10:00 Blood Pressure 158/91 11/17/17 10:00 O2 Sat by Pulse Oximetry (%) 93 L 11/16/17 21:00 Laboratory Tests 11/16/17 11/17/17 11/17/17 06:00 06:00 06:00 Hgb 11.2 PT with INR 19.00 H INR 1.68 H D Potassium 3.2 L BUN 10 D Creatinine 0.5 L Constitutional: No Distress ...Auscultate: Yes: Hypoactive Bowel Sounds ...Palpate: Yes: Soft, Other (nontender) Labs: CBC, BMP 11/16/17 06:00 11/17/17 06:00 INR, PTT INR 1.68 (0.82-1.09) H D 11/17/17 06:00 Problem List - Problems (1) Colic, biliary Code(s): K80.50 - CALCULUS OF BILE DUCT W/O CHOLANGITIS OR CHOLECYST W/O OBST (2) Constipation Code(s): K59.00 - CONSTIPATION, UNSPECIFIED Qualifiers: Constipation type: unspecified constipation type Qualified Code(s): K59.00 - Constipation, unspecified (3) Bile duct calculus Code(s): K80.50 - CALCULUS OF BILE DUCT W/O CHOLANGITIS OR CHOLECYST W/O OBST Qualifiers: Cholecystitis presence: without cholecystitis Biliary obstruction: with biliary obstruction Qualified Code(s): K80.51 - Calculus of bile duct without cholangitis or cholecystitis with obstruction (4) Vomiting Code(s): R11.10 - VOMITING, UNSPECIFIED Qualifiers: Vomiting type: unspecified (5) Dysphagia Assessment/Plan: Suspect achalasia but need to exclude a benign or malignant stricture. For EGD tomorrow. Code(s): R13.10 - DYSPHAGIA, UNSPECIFIED
[2017-11-17] MEDS ORDERED: KCL 10 MEQ IVPB 10 MEQ/100 ML INFUS.BAG IVPB SCH (14:45)
[2017-11-17] MEDS ORDERED: POTASSIUM CHLORIDE 20 MEQ in SODIUM CHLORIDE 250 ML IVPB ONE (15:30)
--- NOTE | 2017-11-17 17:33 | PN ---
Progress Note, Physician History of Present Illness: Pt with nausea and vomitting if trying to eat or drink. Pt w/o SOB, CP, palp. - Current Medication List Current Medications: Active Medications Acetaminophen (Tylenol -) 650 mg PO Q4H PRN PRN Reason: FEVER OR PAIN Last Admin: 11/17/17 12:36 Dose: 650 mg Amlodipine Besylate (Norvasc -) 5 mg PO DAILY [facility] Last Admin: 11/17/17 09:58 Dose: 5 mg Atorvastatin Calcium (Lipitor -) 10 mg PO HS [facility] Last Admin: 11/16/17 22:11 Dose: 10 mg Benzocaine (Americaine Ointment -) 1 applic [place] Q6H PRN PRN Reason: PAIN Last Admin: 11/14/17 11:49 Dose: 1 applic Botulinum Toxin Type A (Botox (Nf) -) 100 units IM ONCE ONE Stop: 11/16/17 12:39 Brimonidine Tartrate (Alphagan 0.2% -) 1 drop OU BID [facility] Last Admin: 11/17/17 09:59 Dose: 1 drop Cholecalciferol (Vitamin D3 -) 400 unit PO DAILY [facility] Last Admin: 11/17/17 10:00 Dose: 400 unit Metronidazole (Flagyl 500mg Premixed Ivpb -) 500 mg in 100 mls @ 100 mls/hr IVPB Q8H-IV [facility] Last Admin: 11/17/17 09:57 Dose: 100 mls/hr CEFTRIAXONE 1 G/50 ML PREMIX (Ceftriaxone 1 Gm-D5w Bag) 50 mls @ 100 mls/hr IVPB DAILY [facility] Last Admin: 11/17/17 10:56 Dose: 100 mls/hr Sodium Chloride (Normal Saline -) 1,000 mls @ 50 mls/hr IV ASDIR [facility] Last Admin: 11/17/17 15:54 Dose: Not Given Potassium Chloride 20 meq/ (Sodium Chloride) 260 mls @ 130 mls/hr IVPB ONCE ONE Stop: 11/17/17 17:29 Latanoprost (Xalatan 0.005% Eye Drops -) 1 drop OU HS [facility] Last Admin: 11/16/17 22:13 Dose: 1 drop Levothyroxine Sodium (Synthroid -) 50 mcg PO SuTuThSa@0700 [facility] Last Admin: 11/17/17 06:42 Dose: 50 mcg Levothyroxine Sodium (Synthroid -) 75 mcg PO MoWeFr@0700 [facility] Last Admin: 11/16/17 06:12 Dose: Not Given Losartan Potassium (Cozaar -) 50 mg PO BID [facility] Last Admin: 11/17/17 09:58 Dose: 50 mg Metoprolol Succinate (Toprol Xl -) 100 mg PO DAILY [facility] Last Admin: 11/17/17 09:58 Dose: 100 mg Ondansetron HCl (Zofran Injection) 4 mg IVPB Q4H PRN PRN Reason: NAUSEA AND/OR VOMITING Last Admin: 11/14/17 14:01 Dose: 4 mg Pantoprazole Sodium (Protonix Iv) 40 mg IVPB DAILY [facility] Last Admin: 11/17/17 10:00 Dose: 40 mg Timolol Maleate (Timoptic 0.5%) 1 drop OU BID [facility] Last Admin: 11/17/17 10:00 Dose: 1 drop Ursodiol (Actigal -) 300 mg PO BID [facility] Last Admin: 11/17/17 09:58 Dose: 300 mg - Objective Vital Signs: Vital Signs Temperature 98.8 F 11/17/17 15:27 Pulse Rate 78 11/17/17 15:27 Respiratory Rate 18 11/17/17 15:27 Blood Pressure 144/90 11/17/17 15:27 O2 Sat by Pulse Oximetry (%) 93 L 11/17/17 09:00 Constitutional: Yes: No Distress, Calm Cardiovascular: Yes: Regular Rate and Rhythm, Murmur, S1, S2 Respiratory: Yes: Regular, CTA Bilaterally. No: Rales Gastrointestinal: Yes: Normal Bowel Sounds, Soft. No: Tenderness Edema: No Neurological: Yes: Alert, Oriented Labs: CBC, BMP 11/16/17 06:00 11/17/17 06:00 INR, PTT INR 1.68 (0.82-1.09) H D 11/17/17 06:00 Problem List - Problems (1) Achalasia Code(s): K22.0 - ACHALASIA OF CARDIA (2) Abdominal pain Code(s): R10.9 - UNSPECIFIED ABDOMINAL PAIN Qualifiers: Abdominal location: left lower quadrant Qualified Code(s): R10.32 - Left lower quadrant pain (3) Bile duct calculus Code(s): K80.50 - CALCULUS OF BILE DUCT W/O CHOLANGITIS OR CHOLECYST W/O OBST Qualifiers: Cholecystitis presence: without cholecystitis Biliary obstruction: with biliary obstruction Qualified Code(s): K80.51 - Calculus of bile duct without cholangitis or cholecystitis with obstruction (4) Dilated cbd, acquired Code(s): K83.8 - OTHER SPECIFIED DISEASES OF BILIARY TRACT (5) Hypertension Code(s): I10 - ESSENTIAL (PRIMARY) HYPERTENSION Qualifiers: Hypertension type: essential hypertension Qualified Code(s): I10 - Essential (primary) hypertension (6) Atrial fibrillation Code(s): I48.91 - UNSPECIFIED ATRIAL FIBRILLATION (7) Hypokalemia Code(s): E87.6 - HYPOKALEMIA Assessment/Plan For EGD/ Dilatation/ Botox injection in AM To monitor INR, restart AC after EGD, per GI. GI, Cardio f/u appreciated. Pt on IV potassium (cannot tolerate PO) AM labs, check Mg.
[2017-11-17] MEDS: LATANOPROST 0.005% OPHTH SOLN 2.5ML BOTTLE OU SCH (21:54)
[2017-11-17] MEDS: ATORVASTATIN CA 10 MG TABLET (FP) PO SCH (21:54)
[2017-11-18] MEDS: METRONIDAZOLE 500 MG PREMIXED 500 MG/100 ML MG IVPB SCH ×2 (01:19→10:25)
[2017-11-18] MEDS: amLODIPine BESYLATE 5 MG TABLET (FP) PO SCH ×2 (05:59→10:26)
[2017-11-18] MEDS: METOPROLOL SUCCINATE 100 MG TAB.SR.24H (FP) PO SCH ×2 (05:59→10:26)
[2017-11-18] MEDS: LOSARTAN POTASSIUM 50 MG TABLET (FP) PO SCH ×3 (05:59→21:17)
[2017-11-18] MEDS: LEVOTHYROXINE NA 75 MCG TABLET (FP) PO SCH (06:09)
[2017-11-18] MEDS ORDERED: BOTULINUM TOXIN A 100 UNITS VIAL IM ONE (08:00)
[2017-11-18 08:23] LABS: INR 1.27 (0.82-1.09); PROTHROMBIN TIME (PATIENT) 14.3 SEC (9.98-11.88)
[2017-11-18 08:37] LABS: BASO % 0.8 % (0-2.0); EOS % 3.5 % (0-4.5); HEMOGLOBIN 12.9 GM/dL (10.7-15.3); LYMPH % 8.8 % (8-40); MCH 30.9 pg (25.7-33.7); MCHC 33.1 g/dl (32.0-36.0); MEAN CELL VOLUME 93.3 fl (80-96); MEAN PLT VOLUME 8.2 fl (7.5-11.1); MONO % 12.1 % (3.8-10.2); NEUT % 74.8 % (42.8-82.8); PLATELET COUNT 267 K/MM3 (134-434); RBC 4.18 M/mm3 (3.60-5.2); RDW 13.7 % (11.6-15.6); WHITE BLOOD COUNT 8.1 K/mm3 (4.0-10.0)
[2017-11-18] MEDS ORDERED: PROPOFOL 20 ML ONE ×2 (09:03)
[2017-11-18 09:12] LABS: ALBUMIN 2.8 g/dl (3.4-5.0); ALK PHOS 113 U/L (45-117); BILIRUBIN,TOTAL 0.6 mg/dL (0.2-1.0); BLOOD UREA NITROGEN 11 mg/dL (7-18); CALCIUM 8.7 mg/dL (8.5-10.1); CO2 22 mmol/L (21-32); CREATININE 0.6 mg/dL (0.55-1.02); GLUCOSE,RANDOM 66 mg/dL (74-106); MAGNESIUM 2.1 mg/dL (1.8-2.4); SGOT/AST 13 U/L (15-37); SGPT/ALT 12 U/L (12-78); TOT PROT 7.3 g/dl (6.4-8.2)
[2017-11-18 09:31] LABS: ANION GAP 16 (8-16); CHLORIDE 105 mmol/L (98-107); POTASSIUM 3.4 mmol/L (3.5-5.1); SODIUM 143 mmol/L (136-145)
--- NOTE | 2017-11-18 10:10 | PN ---
Progress Note, Physician Chief Complaint: in bed awake alert awaiting EGD - Current Medication List Current Medications: Active Medications Acetaminophen (Tylenol -) 650 mg PO Q4H PRN PRN Reason: FEVER OR PAIN Last Admin: 11/17/17 12:36 Dose: 650 mg Amlodipine Besylate (Norvasc -) 5 mg PO DAILY [facility] Last Admin: 11/18/17 05:59 Dose: 5 mg Atorvastatin Calcium (Lipitor -) 10 mg PO HS [facility] Last Admin: 11/17/17 21:54 Dose: 10 mg Benzocaine (Americaine Ointment -) 1 applic [place] Q6H PRN PRN Reason: PAIN Last Admin: 11/14/17 11:49 Dose: 1 applic Brimonidine Tartrate (Alphagan 0.2% -) 1 drop OU BID [facility] Last Admin: 11/17/17 21:59 Dose: 1 drop Cholecalciferol (Vitamin D3 -) 400 unit PO DAILY [facility] Last Admin: 11/17/17 10:00 Dose: 400 unit Metronidazole (Flagyl 500mg Premixed Ivpb -) 500 mg in 100 mls @ 100 mls/hr IVPB Q8H-IV [facility] Last Admin: 11/18/17 01:19 Dose: 100 mls/hr Sodium Chloride (Normal Saline -) 1,000 mls @ 50 mls/hr IV ASDIR [facility] Last Admin: 11/17/17 15:54 Dose: Not Given Latanoprost (Xalatan 0.005% Eye Drops -) 1 drop OU HS [facility] Last Admin: 11/17/17 21:54 Dose: 1 drop Levothyroxine Sodium (Synthroid -) 50 mcg PO SuTuThSa@0700 [facility] Last Admin: 11/17/17 06:42 Dose: 50 mcg Levothyroxine Sodium (Synthroid -) 75 mcg PO MoWeFr@0700 [facility] Last Admin: 11/18/17 06:09 Dose: 75 mcg Losartan Potassium (Cozaar -) 50 mg PO BID [facility] Last Admin: 11/18/17 05:59 Dose: 50 mg Metoprolol Succinate (Toprol Xl -) 100 mg PO DAILY [facility] Last Admin: 11/18/17 05:59 Dose: 100 mg Ondansetron HCl (Zofran Injection) 4 mg IVPB Q4H PRN PRN Reason: NAUSEA AND/OR VOMITING Last Admin: 11/14/17 14:01 Dose: 4 mg Pantoprazole Sodium (Protonix Iv) 40 mg IVPB DAILY [facility] Last Admin: 11/17/17 10:00 Dose: 40 mg Timolol Maleate (Timoptic 0.5%) 1 drop OU BID [facility] Last Admin: 11/17/17 21:59 Dose: 1 drop Ursodiol (Actigal -) 300 mg PO BID [facility] Last Admin: 11/17/17 21:54 Dose: 300 mg - Objective Vital Signs: Vital Signs Temperature 98.0 F 11/18/17 07:37 Pulse Rate 68 11/18/17 07:37 Respiratory Rate 11/18/17 07:37 Blood Pressure 141/73 11/18/17 07:37 O2 Sat by Pulse Oximetry (%) 93 L 11/17/17 21:00 Constitutional: Yes: No Distress, Calm Eyes: Yes: Conjunctiva Clear HENT: Yes: Atraumatic Neck: Yes: Supple Cardiovascular: Yes: Regular Rate and Rhythm Respiratory: Yes: CTA Bilaterally Gastrointestinal: Yes: Soft. No: Distention, Tenderness Genitourinary: No: CVA Tenderness - Left, CVA Tenderness - Right Musculoskeletal: No: Joint Stiffness, Joint Swelling Extremities: No: Cold, Cool Edema: No Integumentary: No: Rash, Venous Stasis Changes Neurological: Yes: WNL, Alert, Oriented ...Motor Strength: WNL Psychiatric: Yes: WNL, Alert, Oriented. No: Agitated Labs: CBC, BMP 11/18/17 06:00 11/18/17 06:00 INR, PTT INR 1.27 (0.82-1.09) H 11/18/17 06:00 - ....Imaging Other: Report Reviewed Assessment/Plan The patient is a 87 year old female, with a significant past medical history of Atrial fibrillation (on Coumadin), HTN, HLD, CAD s/p stents and pacemaker, Hypothyroidism, Diverticulitis, CBD stone extracted via ERCP 10/29; recurrent UTIs admitted with abdominal pain, recurrent CBD stones s/p ERCP and stones extractions; achalasia vomiting for EGD on 11/18 IV ATB f/u labs; GI f/u hold coumadin for EGD falls decubs PFX d/w pt and staff
[2017-11-18] MEDS: URSODIOL 300 MG CAPSULE PO SCH ×2 (10:25→21:17)
[2017-11-18] MEDS: BRIMONIDINE TARTRATE 0.2% OPHTHALMIC 5 ML BOTTLE OU SCH ×2 (10:25→21:22)
[2017-11-18] MEDS: TIMOLOL 0.5% OPHTHALMIC SOL 5 ML BOTTLE OU SCH ×2 (10:26→21:22)
[2017-11-18] MEDS: CHOLECALCIFEROL (VITAMIN D3) 400 UNIT TABLET (FP) PO SCH ×2 (10:26→19:15)
[2017-11-18] MEDS: PANTOPRAZOLE SODIUM 40 MG VIAL IVPB SCH ×2 (10:26→19:15)
[2017-11-18] MEDS: CEFTRIAXONE 1 G/50 ML PREMIX 50 ML IVPB SCH (10:27)
--- NOTE | 2017-11-18 11:30 | PN ---
Progress Note (short form) - Note Progress Note: GI Procedure Note: Please see scanned EGD report. A Schatzki ring was found which was not tight and therefore achalasia cannot be excluded. The ring was dilated and injected with Botox with good relaxation. Will start with liquids today and soft diet in AM. Do not resume anticoagulants for 48 hours. Discussed findings with the patient, daughter and communicated with Dr Richardson Problem List - Problems (1) Colic, biliary Code(s): K80.50 - CALCULUS OF BILE DUCT W/O CHOLANGITIS OR CHOLECYST W/O OBST (2) Constipation Code(s): K59.00 - CONSTIPATION, UNSPECIFIED Qualifiers: Constipation type: unspecified constipation type Qualified Code(s): K59.00 - Constipation, unspecified (3) Bile duct calculus Code(s): K80.50 - CALCULUS OF BILE DUCT W/O CHOLANGITIS OR CHOLECYST W/O OBST Qualifiers: Cholecystitis presence: without cholecystitis Biliary obstruction: with biliary obstruction Qualified Code(s): K80.51 - Calculus of bile duct without cholangitis or cholecystitis with obstruction (4) Vomiting Code(s): R11.10 - VOMITING, UNSPECIFIED Qualifiers: Vomiting type: unspecified (5) Dysphagia Code(s): R13.10 - DYSPHAGIA, UNSPECIFIED
[2017-11-18] MEDS ORDERED: MAG HYDROX/AL HYDROX/SIMETH 30 ML UNIT-DOSE CUP PO PRN (11:41)
--- NOTE | 2017-11-18 14:17 | PN ---
Progress Note, Physician History of Present Illness: Dysphagia improved post Schatzki ring dilatation and Botox injection of achalasia with good relaxation. Repeat esophagram pending. - Current Medication List Current Medications: Active Medications Acetaminophen (Tylenol -) 650 mg PO Q4H PRN PRN Reason: FEVER OR PAIN Last Admin: 11/17/17 12:36 Dose: 650 mg Al Hydroxide/Mg Hydroxide (Mylanta Oral Suspension -) 30 ml PO Q6H PRN PRN Reason: DYSPEPSIA Amlodipine Besylate (Norvasc -) 5 mg PO DAILY [facility] Last Admin: 11/18/17 10:26 Dose: Not Given Atorvastatin Calcium (Lipitor -) 10 mg PO [facility] Last Admin: 11/17/17 21:54 Dose: 10 mg Benzocaine (Americaine Ointment -) 1 applic [place] Q6H PRN PRN Reason: PAIN Last Admin: 11/14/17 11:49 Dose: 1 applic Brimonidine Tartrate (Alphagan 0.2% -) 1 drop OU BID [facility] Last Admin: 11/18/17 10:25 Dose: Not Given Cholecalciferol (Vitamin D3 -) 400 unit PO DAILY [facility] Last Admin: 11/18/17 10:26 Dose: Not Given Metronidazole (Flagyl 500mg Premixed Ivpb -) 500 mg in 100 mls @ 100 mls/hr IVPB Q8H-IV [facility] Last Admin: 11/18/17 10:25 Dose: Not Given Sodium Chloride (Normal Saline -) 1,000 mls @ 50 mls/hr IV ASDIR [facility] Last Admin: 11/17/17 15:54 Dose: Not Given Latanoprost (Xalatan 0.005% Eye Drops -) 1 drop OU [facility] Last Admin: 11/17/17 21:54 Dose: 1 drop Levothyroxine Sodium (Synthroid -) 50 mcg PO SuTuThSa@0700 [facility] Last Admin: 11/17/17 06:42 Dose: 50 mcg Levothyroxine Sodium (Synthroid -) 75 mcg PO MoWeFr@0700 [facility] Last Admin: 11/18/17 06:09 Dose: 75 mcg Losartan Potassium (Cozaar -) 50 mg PO BID [facility] Last Admin: 11/18/17 10:25 Dose: Not Given Metoprolol Succinate (Toprol Xl -) 100 mg PO DAILY [facility] Last Admin: 11/18/17 10:26 Dose: Not Given Ondansetron HCl (Zofran Injection) 4 mg IVPB Q4H PRN PRN Reason: NAUSEA AND/OR VOMITING Last Admin: 11/14/17 14:01 Dose: 4 mg Pantoprazole Sodium (Protonix Iv) 40 mg IVPB DAILY [facility] Last Admin: 11/18/17 10:26 Dose: Not Given Polyethylene Glycol (Miralax (For Daily Use) -) 17 gm PO BID [facility] Timolol Maleate (Timoptic 0.5%) 1 drop OU BID [facility] Last Admin: 11/18/17 10:26 Dose: Not Given Ursodiol (Actigal -) 300 mg PO BID [facility] Last Admin: 11/18/17 10:25 Dose: Not Given - Objective Vital Signs: Vital Signs Temperature 98 F 11/18/17 10:35 Pulse Rate 80 11/18/17 11:26 Respiratory Rate 18 11/18/17 11:26 Blood Pressure 138/77 11/18/17 11:26 O2 Sat by Pulse Oximetry (%) 97 11/18/17 11:26 Constitutional: Yes: No Distress, Calm, Thin Neck: Yes: Supple Cardiovascular: Yes: Regular Rate and Rhythm Respiratory: Yes: Regular, CTA Bilaterally Gastrointestinal: Yes: Normal Bowel Sounds, Soft Edema: No Labs: CBC, BMP 11/18/17 06:00 11/18/17 06:00 INR, PTT INR 1.27 (0.82-1.09) H 11/18/17 06:00 Problem List - Problems (1) Abdominal pain Code(s): R10.9 - UNSPECIFIED ABDOMINAL PAIN Qualifiers: Abdominal location: left lower quadrant Qualified Code(s): R10.32 - Left lower quadrant pain (2) Dilated cbd, acquired Code(s): K83.8 - OTHER SPECIFIED DISEASES OF BILIARY TRACT (3) Hyperlipidemia Code(s): E78.5 - HYPERLIPIDEMIA, UNSPECIFIED Qualifiers: Hyperlipidemia type: pure hypercholesterolemia Qualified Code(s): E78.00 - Pure hypercholesterolemia, unspecified (4) Hypertension Code(s): I10 - ESSENTIAL (PRIMARY) HYPERTENSION Qualifiers: Hypertension type: essential hypertension Qualified Code(s): I10 - Essential (primary) hypertension (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 Code(s): I11.9 - HYPERTENSIVE HEART DISEASE WITHOUT HEART FAILURE (6) Hypothyroidism Code(s): E03.9 - HYPOTHYROIDISM, UNSPECIFIED Qualifiers: Hypothyroidism type: unspecified Qualified Code(s): E03.9 - Hypothyroidism , unspecified (7) Moderate aortic valve stenosis Code(s): I35.0 - NONRHEUMATIC AORTIC (VALVE) STENOSIS (8) Neurocardiogenic syncope Code(s): R55 - SYNCOPE AND COLLAPSE (9) Paroxysmal atrial fibrillation Code(s): I48.0 - PAROXYSMAL ATRIAL FIBRILLATION (10) Urinary tract infection Code(s): N39.0 - URINARY TRACT INFECTION, SITE NOT SPECIFIED Qualifiers: Urinary tract infection type: site unspecified (11) Coronary artery disease Code(s): I25.10 - ATHSCL HEART DISEASE OF [place] CORONARY ARTERY W/O ANG PCTRS Qualifiers: Coronary Disease-Associated Artery/Lesion type: [place] artery [place] vs. transplanted heart: [place] heart Associated angina: without angina Qualified Code(s): I25.10 - Atherosclerotic heart disease of [place] coronary artery without angina pectoris (12) Fecal impaction of colon Code(s): K56.41 - FECAL IMPACTION (13) Pacemaker Code(s): Z95.0 - PRESENCE OF CARDIAC PACEMAKER (14) Bile duct calculus Code(s): K80.50 - CALCULUS OF BILE DUCT W/O CHOLANGITIS OR CHOLECYST W/O OBST Qualifiers: Cholecystitis presence: without cholecystitis Biliary obstruction: with biliary obstruction Qualified Code(s): K80.51 - Calculus of bile duct without cholangitis or cholecystitis with obstruction (15) Colic, biliary Code(s): K80.50 - CALCULUS OF BILE DUCT W/O CHOLANGITIS OR CHOLECYST W/O OBST (16) Hypokalemia Code(s): E87.6 - HYPOKALEMIA (17) History of endoscopic retrograde cholangiopancreatography Code(s): Z98.890 - OTHER SPECIFIED POSTPROCEDURAL STATES (18) Lower esophageal ring (Schatzki) Code(s): K22.2 - ESOPHAGEAL OBSTRUCTION (19) Achalasia Code(s): K22.0 - ACHALASIA OF CARDIA (20) Dysphagia Code(s): R13.10 - DYSPHAGIA, UNSPECIFIED Qualifiers: Dysphagia type: esophageal phase Qualified Code(s): R13.10 - Dysphagia, unspecified (21) GERD (gastroesophageal reflux disease) Code(s): K21.9 - GASTRO-ESOPHAGEAL REFLUX DISEASE WITHOUT ESOPHAGITIS Qualifiers: Esophagitis presence: without esophagitis Qualified Code(s): K21.9 - Gastro -esophageal reflux disease without esophagitis Assessment/Plan 1. Dysphagia referable to Achalasia and Schatski ring post dilatation and Botox injection 2. Resolved abdominal pain consistent with fecal impaction 3. Retained stones post cholecystectomy with biliary duct dilatation post therapeutic ERCP/sphincterotomy and biliary stent 4. CAD angina pectoris, stable 5. 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 Moderate aortic valve stenosis 7. Paroxysmal atrial fibrillation currently in sinus rhythm with sub- therapeutic INR, resumed A/C with Coumadin 8. 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 HTN/HCVD 10. Hyperlipidemia 11. Hypothyroidism 12. GERD PLAN: 1. Antibiotic course per primary team 2. Continue Losartan 50 bid, Toprol XL 100 qd and Norvasc 5 qd 3. Continue Lipitor 10 qhs, replete K 4. Resume Coumadin 48 hrs post-procedure per GI, liquid diet with advance as tolerated, Protonix 5. Repeat ERCP and EGD in 3 months
[2017-11-18] MEDS ORDERED: PT OWN MED DRAWER 7, Y5N ONE ×2 (18:44→21:21)
[2017-11-18] MEDS: ATORVASTATIN CA 10 MG TABLET (FP) PO SCH (21:18)
[2017-11-18] MEDS: LATANOPROST 0.005% OPHTH SOLN 2.5ML BOTTLE OU SCH (21:21)
[2017-11-18] MEDS: POLYETHYLENE GLYCOL 3350 119 GM BTL PO SCH (21:29)
[2017-11-19] MEDS: LEVOTHYROXINE NA 50 MCG TABLET (FP) PO SCH (06:22)
[2017-11-19 08:13] LABS: EOS % 5.6 % (0-4.5); HEMOGLOBIN 11.9 GM/dL (10.7-15.3); LYMPH % 15.6 % (8-40); MCH 31.4 pg (25.7-33.7); MCHC 34.1 g/dl (32.0-36.0); MEAN CELL VOLUME 92.1 fl (80-96); MEAN PLT VOLUME 8.3 fl (7.5-11.1); MONO % 14.9 % (3.8-10.2); NEUT % 62.9 % (42.8-82.8); PLATELET COUNT 243 K/MM3 (134-434); RDW 13.9 % (11.6-15.6)
[2017-11-19 08:28] LABS: INR 1.2 (0.82-1.09); PROTHROMBIN TIME (PATIENT) 13.6 SEC (9.98-11.88)
[2017-11-19 08:49] LABS: CHLORIDE 103 mmol/L (98-107); POTASSIUM 3.1 mmol/L (3.5-5.1); SODIUM 142 mmol/L (136-145)
[2017-11-19 08:56] LABS: ALBUMIN 2.6 g/dl (3.4-5.0); ALK PHOS 97 U/L (45-117); ANION GAP 14 (8-16); BILIRUBIN,TOTAL 0.6 mg/dL (0.2-1.0); BLOOD UREA NITROGEN 7 mg/dL (7-18); CALCIUM 8.4 mg/dL (8.5-10.1); CO2 25 mmol/L (21-32); CREATININE 0.5 mg/dL (0.55-1.02); GLUCOSE,RANDOM 74 mg/dL (74-106); SGOT/AST 14 U/L (15-37); SGPT/ALT 10 U/L (12-78); TOT PROT 6.5 g/dl (6.4-8.2)
[2017-11-19] MEDS ORDERED: PT OWN MED DRAWER 7, Y5N ONE ×3 (09:55→21:34)
[2017-11-19] MEDS: SODIUM CHLORIDE 1,000 ML IV SCH ×2 (09:57→17:23)
[2017-11-19] MEDS: BRIMONIDINE TARTRATE 0.2% OPHTHALMIC 5 ML BOTTLE OU SCH ×2 (10:02→21:37)
[2017-11-19] MEDS: PANTOPRAZOLE SODIUM 40 MG VIAL IVPB SCH (10:03)
[2017-11-19] MEDS: URSODIOL 300 MG CAPSULE PO SCH ×2 (10:04→21:35)
[2017-11-19] MEDS: METOPROLOL SUCCINATE 100 MG TAB.SR.24H (FP) PO SCH (10:04)
[2017-11-19] MEDS: amLODIPine BESYLATE 5 MG TABLET (FP) PO SCH (10:04)
[2017-11-19] MEDS: CHOLECALCIFEROL (VITAMIN D3) 400 UNIT TABLET (FP) PO SCH (10:05)
[2017-11-19] MEDS: LOSARTAN POTASSIUM 50 MG TABLET (FP) PO SCH ×2 (10:05→21:35)
[2017-11-19] MEDS: TIMOLOL 0.5% OPHTHALMIC SOL 5 ML BOTTLE OU SCH ×2 (10:06→21:39)
[2017-11-19] MEDS: POLYETHYLENE GLYCOL 3350 119 GM BTL PO SCH ×2 (10:06→21:40)
--- NOTE | 2017-11-19 14:57 | PN ---
Progress Note, Physician History of Present Illness: Covering for Dr. Caputo, who will resume care on Tuesday No events. Comfortable. Able to swallow soft food. Was given stake and mash potatoes for dinner. Asking about restarting Coumadin - Current Medication List Current Medications: Active Medications Acetaminophen (Tylenol -) 650 mg PO Q4H PRN PRN Reason: FEVER OR PAIN Last Admin: 11/17/17 12:36 Dose: 650 mg Al Hydroxide/Mg Hydroxide (Mylanta Oral Suspension -) 30 ml PO Q6H PRN PRN Reason: DYSPEPSIA Amlodipine Besylate (Norvasc -) 5 mg PO DAILY [facility] Last Admin: 11/19/17 10:04 Dose: 5 mg Atorvastatin Calcium (Lipitor -) 10 mg PO [facility] Last Admin: 11/18/17 21:18 Dose: 10 mg Benzocaine (Americaine Ointment -) 1 applic [place] Q6H PRN PRN Reason: PAIN Last Admin: 11/14/17 11:49 Dose: 1 applic Brimonidine Tartrate (Alphagan 0.2% -) 1 drop OU BID [facility] Last Admin: 11/19/17 10:02 Dose: 1 drop Cholecalciferol (Vitamin D3 -) 400 unit PO DAILY [facility] Last Admin: 11/19/17 10:05 Dose: 400 unit Sodium Chloride (Normal Saline -) 1,000 mls @ 50 mls/hr IV ASDIR [facility] Last Admin: 11/19/17 09:57 Dose: Not Given Latanoprost (Xalatan 0.005% Eye Drops -) 1 drop OU [facility] Last Admin: 11/18/17 21:21 Dose: 1 drop Levothyroxine Sodium (Synthroid -) 50 mcg PO SuTuThSa@0700 [facility] Last Admin: 11/19/17 06:22 Dose: 50 mcg Levothyroxine Sodium (Synthroid -) 75 mcg PO MoWeFr@0700 [facility] Last Admin: 11/18/17 06:09 Dose: 75 mcg Losartan Potassium (Cozaar -) 50 mg PO BID [facility] Last Admin: 11/19/17 10:05 Dose: 50 mg Metoprolol Succinate (Toprol Xl -) 100 mg PO DAILY [facility] Last Admin: 11/19/17 10:04 Dose: 100 mg Ondansetron HCl (Zofran Injection) 4 mg IVPB Q4H PRN PRN Reason: NAUSEA AND/OR VOMITING Last Admin: 11/14/17 14:01 Dose: 4 mg Pantoprazole Sodium (Protonix Iv) 40 mg IVPB DAILY [facility] Last Admin: 11/19/17 10:03 Dose: 40 mg Polyethylene Glycol (Miralax (For Daily Use) -) 17 gm PO BID [facility] Last Admin: 11/19/17 10:06 Dose: Not Given Timolol Maleate (Timoptic 0.5%) 1 drop OU BID [facility] Last Admin: 11/19/17 10:06 Dose: 1 drop Ursodiol (Actigal -) 300 mg PO BID [facility] Last Admin: 11/19/17 10:04 Dose: 300 mg - Objective Vital Signs: Vital Signs Temperature 98.4 F 11/19/17 09:56 Pulse Rate 86 11/19/17 09:56 Respiratory Rate 18 11/19/17 09:56 Blood Pressure 132/79 11/19/17 09:56 O2 Sat by Pulse Oximetry (%) 94 L 11/19/17 09:00 Constitutional: Yes: Well Nourished, No Distress, Calm Eyes: Yes: Conjunctiva Clear HENT: Yes: Atraumatic Neck: Yes: Supple Cardiovascular: Yes: Regular Rate and Rhythm Respiratory: Yes: Regular Gastrointestinal: Yes: Soft. No: Tenderness Neurological: Yes: Alert, Oriented Labs: CBC, BMP 11/19/17 07:47 11/19/17 07:47 INR, PTT INR 1.20 (0.82-1.09) H 11/19/17 07:47 Abnormal Lab Results 11/19/17 11/19/17 11/19/17 07:47 07:47 07:47 Monocytes % 14.9 H Eosinophils % 5.6 H PT with INR 13.60 H INR 1.20 H Potassium 3.1 L Creatinine 0.5 L Calcium 8.4 L AST 14 L ALT 10 L Albumin 2.6 L Problem List - Problems (1) Achalasia Code(s): K22.0 - ACHALASIA OF CARDIA (2) Dysphagia Code(s): R13.10 - DYSPHAGIA, UNSPECIFIED Qualifiers: Dysphagia type: esophageal phase Qualified Code(s): R13.10 - Dysphagia, unspecified Assessment/Plan reports good response to achalasia intervention. Continue soft diet Coumadin can be restarted tomorrow if continues to do well
--- NOTE | 2017-11-19 15:47 | PN ---
Progress Note, Physician Chief Complaint: Events noted Feels better Able to swallow better History of Present Illness: Patient was seen and examined. Awake and alert. Chart was reviewed Denies chest pain, SOB or palpitations As outlined regarding achalasia and above mentioned procedure - Current Medication List Current Medications: Active Medications Acetaminophen (Tylenol -) 650 mg PO Q4H PRN PRN Reason: FEVER OR PAIN Last Admin: 11/17/17 12:36 Dose: 650 mg Al Hydroxide/Mg Hydroxide (Mylanta Oral Suspension -) 30 ml PO Q6H PRN PRN Reason: DYSPEPSIA Amlodipine Besylate (Norvasc -) 5 mg PO DAILY [facility] Last Admin: 11/19/17 10:04 Dose: 5 mg Atorvastatin Calcium (Lipitor -) 10 mg PO [facility] Last Admin: 11/18/17 21:18 Dose: 10 mg Benzocaine (Americaine Ointment -) 1 applic [place] Q6H PRN PRN Reason: PAIN Last Admin: 11/14/17 11:49 Dose: 1 applic Brimonidine Tartrate (Alphagan 0.2% -) 1 drop OU BID [facility] Last Admin: 11/19/17 10:02 Dose: 1 drop Cholecalciferol (Vitamin D3 -) 400 unit PO DAILY [facility] Last Admin: 11/19/17 10:05 Dose: 400 unit Sodium Chloride (Normal Saline -) 1,000 mls @ 50 mls/hr IV ASDIR [facility] Last Admin: 11/19/17 09:57 Dose: Not Given Latanoprost (Xalatan 0.005% Eye Drops -) 1 drop OU [facility] Last Admin: 11/18/17 21:21 Dose: 1 drop Levothyroxine Sodium (Synthroid -) 50 mcg PO SuTuThSa@0700 [facility] Last Admin: 11/19/17 06:22 Dose: 50 mcg Levothyroxine Sodium (Synthroid -) 75 mcg PO MoWeFr@0700 [facility] Last Admin: 11/18/17 06:09 Dose: 75 mcg Losartan Potassium (Cozaar -) 50 mg PO BID [facility] Last Admin: 11/19/17 10:05 Dose: 50 mg Metoprolol Succinate (Toprol Xl -) 100 mg PO DAILY [facility] Last Admin: 11/19/17 10:04 Dose: 100 mg Ondansetron HCl (Zofran Injection) 4 mg IVPB Q4H PRN PRN Reason: NAUSEA AND/OR VOMITING Last Admin: 11/14/17 14:01 Dose: 4 mg Pantoprazole Sodium (Protonix Iv) 40 mg IVPB DAILY [facility] Last Admin: 11/19/17 10:03 Dose: 40 mg Polyethylene Glycol (Miralax (For Daily Use) -) 17 gm PO BID [facility] Last Admin: 11/19/17 10:06 Dose: Not Given Timolol Maleate (Timoptic 0.5%) 1 drop OU BID [facility] Last Admin: 11/19/17 10:06 Dose: 1 drop Ursodiol (Actigal -) 300 mg PO BID [facility] Last Admin: 11/19/17 10:04 Dose: 300 mg - Objective Vital Signs: Vital Signs Temperature 98.1 F 11/19/17 15:06 Pulse Rate 65 11/19/17 15:06 Respiratory Rate 18 11/19/17 15:06 Blood Pressure 102/64 11/19/17 15:06 O2 Sat by Pulse Oximetry (%) 94 L 11/19/17 09:00 Eyes: Yes: PERRL HENT: Yes: Atraumatic Neck: Yes: Supple Cardiovascular: Yes: Regular Rate and Rhythm, Murmur (2/6 ELIZABETH), S1, S2 Respiratory: Yes: CTA Bilaterally Gastrointestinal: Yes: Normal Bowel Sounds, Soft. No: Tenderness Edema: No Labs: CBC, BMP 11/19/17 07:47 11/19/17 07:47 INR, PTT INR 1.20 (0.82-1.09) H 11/19/17 07:47 Problem List - Problems (1) Abdominal pain Code(s): R10.9 - UNSPECIFIED ABDOMINAL PAIN Qualifiers: Abdominal location: left lower quadrant Qualified Code(s): R10.32 - Left lower quadrant pain (2) Coronary artery disease Code(s): I25.10 - ATHSCL HEART DISEASE OF [place] CORONARY ARTERY W/O ANG PCTRS Qualifiers: Coronary Disease-Associated Artery/Lesion type: [place] artery [place] vs. transplanted heart: [place] heart Associated angina: without angina Qualified Code(s): I25.10 - Atherosclerotic heart disease of [place] coronary artery without angina pectoris (3) Pacemaker Code(s): Z95.0 - PRESENCE OF CARDIAC PACEMAKER (4) Bile duct calculus Code(s): K80.50 - CALCULUS OF BILE DUCT W/O CHOLANGITIS OR CHOLECYST W/O OBST Qualifiers: Cholecystitis presence: without cholecystitis Biliary obstruction: with biliary obstruction Qualified Code(s): K80.51 - Calculus of bile duct without cholangitis or cholecystitis with obstruction (5) Dilated cbd, acquired Code(s): K83.8 - OTHER SPECIFIED DISEASES OF BILIARY TRACT (6) Hyperlipidemia Code(s): E78.5 - HYPERLIPIDEMIA, UNSPECIFIED Qualifiers: Hyperlipidemia type: pure hypercholesterolemia Qualified Code(s): E78.00 - Pure hypercholesterolemia, unspecified (7) Hypertension Code(s): I10 - ESSENTIAL (PRIMARY) HYPERTENSION Qualifiers: Hypertension type: essential hypertension Qualified Code(s): I10 - Essential (primary) hypertension (8) Hypothyroidism Code(s): E03.9 - HYPOTHYROIDISM, UNSPECIFIED Qualifiers: Hypothyroidism type: unspecified Qualified Code(s): E03.9 - Hypothyroidism , unspecified (9) Moderate aortic valve stenosis Code(s): I35.0 - NONRHEUMATIC AORTIC (VALVE) STENOSIS (10) Neurocardiogenic syncope Code(s): R55 - SYNCOPE AND COLLAPSE (11) Paroxysmal atrial fibrillation Code(s): I48.0 - PAROXYSMAL ATRIAL FIBRILLATION (12) Urinary tract infection Code(s): N39.0 - URINARY TRACT INFECTION, SITE NOT SPECIFIED Qualifiers: Urinary tract infection type: site unspecified Assessment/Plan 1. Dysphagia referable to Achalasia and Schatski ring post dilatation and Botox injection 2. Retained stones post cholecystectomy with biliary duct dilatation post therapeutic ERCP/sphincterotomy and biliary stent 3. CAD angina pectoris, stable 4. 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 Moderate aortic valve stenosis 6. Paroxysmal atrial fibrillation currently in sinus rhythm 7. 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 HTN/HCVD 9. Hyperlipidemia 10. Hypothyroidism 11. GERD PLAN: 1. Antibiotic course 2. Continue Losartan 50 bid, Toprol XL 100 qd and Norvasc 5 qd 3. Continue Lipitor 10 qhs 4. Resume Coumadin when cleared by GI 5. GI follow up as stated Further plans are to follow Alejandro Elise MD
[2017-11-19] MEDS ORDERED: POTASSIUM CHLORIDE TABS 20 MEQ TABLET.ER (FP) PO ONE (17:49)
--- NOTE | 2017-11-19 17:52 | PN ---
Progress Note, Physician History of Present Illness: Pt is able to eat and drink.. Pt w/o SOB, CP, palp, abd pain. - Current Medication List Current Medications: Active Medications Acetaminophen (Tylenol -) 650 mg PO Q4H PRN PRN Reason: FEVER OR PAIN Last Admin: 11/17/17 12:36 Dose: 650 mg Al Hydroxide/Mg Hydroxide (Mylanta Oral Suspension -) 30 ml PO Q6H PRN PRN Reason: DYSPEPSIA Amlodipine Besylate (Norvasc -) 5 mg PO DAILY [facility] Last Admin: 11/19/17 10:04 Dose: 5 mg Atorvastatin Calcium (Lipitor -) 10 mg PO HS [facility] Last Admin: 11/18/17 21:18 Dose: 10 mg Benzocaine (Americaine Ointment -) 1 applic [place] Q6H PRN PRN Reason: PAIN Last Admin: 11/14/17 11:49 Dose: 1 applic Brimonidine Tartrate (Alphagan 0.2% -) 1 drop OU BID [facility] Last Admin: 11/19/17 10:02 Dose: 1 drop Cholecalciferol (Vitamin D3 -) 400 unit PO DAILY [facility] Last Admin: 11/19/17 10:05 Dose: 400 unit Sodium Chloride (Normal Saline -) 1,000 mls @ 50 mls/hr IV ASDIR [facility] Last Admin: 11/19/17 17:23 Dose: 50 mls/hr Latanoprost (Xalatan 0.005% Eye Drops -) 1 drop OU [facility] Last Admin: 11/18/17 21:21 Dose: 1 drop Levothyroxine Sodium (Synthroid -) 50 mcg PO SuTuThSa@0700 [facility] Last Admin: 11/19/17 06:22 Dose: 50 mcg Levothyroxine Sodium (Synthroid -) 75 mcg PO MoWeFr@0700 [facility] Last Admin: 11/18/17 06:09 Dose: 75 mcg Losartan Potassium (Cozaar -) 50 mg PO BID [facility] Last Admin: 11/19/17 10:05 Dose: 50 mg Metoprolol Succinate (Toprol Xl -) 100 mg PO DAILY [facility] Last Admin: 11/19/17 10:04 Dose: 100 mg Ondansetron HCl (Zofran Injection) 4 mg IVPB Q4H PRN PRN Reason: NAUSEA AND/OR VOMITING Last Admin: 11/14/17 14:01 Dose: 4 mg Polyethylene Glycol (Miralax (For Daily Use) -) 17 gm PO BID [facility] Last Admin: 11/19/17 10:06 Dose: Not Given Timolol Maleate (Timoptic 0.5%) 1 drop OU BID [facility] Last Admin: 11/19/17 10:06 Dose: 1 drop Ursodiol (Actigal -) 300 mg PO BID [facility] Last Admin: 11/19/17 10:04 Dose: 300 mg - Objective Vital Signs: Vital Signs Temperature 97.5 F L 11/19/17 17:24 Pulse Rate 62 11/19/17 17:24 Respiratory Rate 30 H 11/19/17 17:24 Blood Pressure 130/62 11/19/17 17:24 O2 Sat by Pulse Oximetry (%) 94 L 11/19/17 09:00 Constitutional: Yes: No Distress, Calm Cardiovascular: Yes: Regular Rate and Rhythm, Murmur, S1, S2 Respiratory: Yes: Regular, CTA Bilaterally. No: Rales Gastrointestinal: Yes: Normal Bowel Sounds, Soft. No: Tenderness Edema: No Neurological: Yes: Alert, Oriented Labs: CBC, BMP 11/19/17 07:47 11/19/17 07:47 INR, PTT INR 1.20 (0.82-1.09) H 11/19/17 07:47 Problem List - Problems (1) Achalasia Code(s): K22.0 - ACHALASIA OF CARDIA (2) Abdominal pain Code(s): R10.9 - UNSPECIFIED ABDOMINAL PAIN Qualifiers: Abdominal location: left lower quadrant Qualified Code(s): R10.32 - Left lower quadrant pain (3) Bile duct calculus Code(s): K80.50 - CALCULUS OF BILE DUCT W/O CHOLANGITIS OR CHOLECYST W/O OBST Qualifiers: Cholecystitis presence: without cholecystitis Biliary obstruction: with biliary obstruction Qualified Code(s): K80.51 - Calculus of bile duct without cholangitis or cholecystitis with obstruction (4) Dilated cbd, acquired Code(s): K83.8 - OTHER SPECIFIED DISEASES OF BILIARY TRACT (5) Hypertension Code(s): I10 - ESSENTIAL (PRIMARY) HYPERTENSION Qualifiers: Hypertension type: essential hypertension Qualified Code(s): I10 - Essential (primary) hypertension (6) Atrial fibrillation Code(s): I48.91 - UNSPECIFIED ATRIAL FIBRILLATION (7) Hypokalemia Code(s): E87.6 - HYPOKALEMIA Assessment/Plan s/p EGD/ Dilatation/ Botox injection. GI, Cardio f/u appreciated. Replete K. AM labs, check Mg.
[2017-11-19] MEDS: ATORVASTATIN CA 10 MG TABLET (FP) PO SCH (21:35)
[2017-11-19] MEDS: LATANOPROST 0.005% OPHTH SOLN 2.5ML BOTTLE OU SCH (21:37)
[2017-11-20] MEDS: LEVOTHYROXINE NA 50 MCG TABLET (FP) PO SCH (06:31)
[2017-11-20 06:59] LABS: HEMATOCRIT 34.6 % (32.4-45.2); MCH 31.9 pg (25.7-33.7); MCHC 34.6 g/dl (32.0-36.0); MEAN CELL VOLUME 92.3 fl (80-96); MEAN PLT VOLUME 8.7 fl (7.5-11.1); PLATELET COUNT 229 K/MM3 (134-434); RBC 3.75 M/mm3 (3.60-5.2); RDW 13.9 % (11.6-15.6); WHITE BLOOD COUNT 5.1 K/mm3 (4.0-10.0)
--- NOTE | 2017-11-20 07:42 | PN ---
Progress Note, Physician Chief Complaint: s/p EGD and Shatzki ring dilation, botox INJ; feels better no vomiting - Current Medication List Current Medications: Active Medications Acetaminophen (Tylenol -) 650 mg PO Q4H PRN PRN Reason: FEVER OR PAIN Last Admin: 11/17/17 12:36 Dose: 650 mg Al Hydroxide/Mg Hydroxide (Mylanta Oral Suspension -) 30 ml PO Q6H PRN PRN Reason: DYSPEPSIA Amlodipine Besylate (Norvasc -) 5 mg PO DAILY [facility] Last Admin: 11/19/17 10:04 Dose: 5 mg Atorvastatin Calcium (Lipitor -) 10 mg PO HS [facility] Last Admin: 11/19/17 21:35 Dose: 10 mg Benzocaine (Americaine Ointment -) 1 applic [place] Q6H PRN PRN Reason: PAIN Last Admin: 11/14/17 11:49 Dose: 1 applic Brimonidine Tartrate (Alphagan 0.2% -) 1 drop OU BID [facility] Last Admin: 11/19/17 21:37 Dose: 1 drop Cholecalciferol (Vitamin D3 -) 400 unit PO DAILY [facility] Last Admin: 11/19/17 10:05 Dose: 400 unit Latanoprost (Xalatan 0.005% Eye Drops -) 1 drop OU [facility] Last Admin: 11/19/17 21:37 Dose: 1 drop Levothyroxine Sodium (Synthroid -) 50 mcg PO SuTuThSa@0700 [facility] Last Admin: 11/20/17 06:31 Dose: 50 mcg Levothyroxine Sodium (Synthroid -) 75 mcg PO MoWeFr@0700 [facility] Last Admin: 11/18/17 06:09 Dose: 75 mcg Losartan Potassium (Cozaar -) 50 mg PO BID [facility] Last Admin: 11/19/17 21:35 Dose: 50 mg Metoprolol Succinate (Toprol Xl -) 100 mg PO DAILY [facility] Last Admin: 11/19/17 10:04 Dose: 100 mg Ondansetron HCl (Zofran Injection) 4 mg IVPB Q4H PRN PRN Reason: NAUSEA AND/OR VOMITING Last Admin: 11/14/17 14:01 Dose: 4 mg Pantoprazole Sodium (Protonix -) 40 mg PO DAILY [facility] Polyethylene Glycol (Miralax (For Daily Use) -) 17 gm PO BID [facility] Last Admin: 11/19/17 21:40 Dose: Not Given Timolol Maleate (Timoptic 0.5%) 1 drop OU BID [facility] Last Admin: 11/19/17 21:39 Dose: 1 drop Ursodiol (Actigal -) 300 mg PO BID [facility] Last Admin: 11/19/17 21:35 Dose: 300 mg - Objective Vital Signs: Vital Signs Temperature 98 F 11/20/17 06:08 Pulse Rate 73 11/20/17 06:08 Respiratory Rate 20 11/20/17 06:08 Blood Pressure 150/77 11/20/17 06:08 O2 Sat by Pulse Oximetry (%) 96 11/19/17 21:00 Constitutional: Yes: No Distress, Calm Eyes: Yes: Conjunctiva Clear HENT: Yes: Atraumatic Neck: Yes: Supple Cardiovascular: Yes: Regular Rate and Rhythm Respiratory: Yes: CTA Bilaterally Gastrointestinal: Yes: Soft. No: Distention Genitourinary: No: CVA Tenderness - Left, CVA Tenderness - Right Musculoskeletal: No: Joint Stiffness, Joint Swelling Extremities: No: Cold, Cool Edema: No Integumentary: No: Rash, Venous Stasis Changes Neurological: Yes: WNL, Alert, Oriented ...Motor Strength: WNL Psychiatric: Yes: WNL, Alert, Oriented. No: Agitated, Suicidal Ideation Labs: CBC, BMP 11/20/17 06:30 INR, PTT INR 1.20 (0.82-1.09) H 11/19/17 07:47 - ....Imaging Other: Report Reviewed Assessment/Plan The patient is a 87 year old female, with a significant past medical history of Atrial fibrillation (on Coumadin), HTN, HLD, CAD s/p stents and pacemaker, Hypothyroidism, Diverticulitis, CBD stone extracted via ERCP 10/29; recurrent UTIs admitted with abdominal pain, recurrent CBD stones s/p ERCP and stones extractions; achalasia vomiting s/p EGD on 11/18 f/u labs; GI f/u hold coumadin 48 H after EGD falls decubs PFX d/w pt and staff
[2017-11-20 08:21] LABS: ALBUMIN 2.5 g/dl (3.4-5.0); ALK PHOS 91 U/L (45-117); ANION GAP 8 (8-16); BILIRUBIN,TOTAL 0.5 mg/dL (0.2-1.0); BLOOD UREA NITROGEN 7 mg/dL (7-18); CALCIUM 8.5 mg/dL (8.5-10.1); CHLORIDE 106 mmol/L (98-107); CO2 28 mmol/L (21-32); CREATININE 0.6 mg/dL (0.55-1.02); GLUCOSE,RANDOM 94 mg/dL (74-106); MAGNESIUM 1.8 mg/dL (1.8-2.4); POTASSIUM 3.6 mmol/L (3.5-5.1); SGOT/AST 12 U/L (15-37); SGPT/ALT 11 U/L (12-78); SODIUM 142 mmol/L (136-145); TOT PROT 6.4 g/dl (6.4-8.2)
[2017-11-20] MEDS ORDERED: PT OWN MED DRAWER 7, Y5N ONE ×2 (10:16→10:29)
[2017-11-20] MEDS: BRIMONIDINE TARTRATE 0.2% OPHTHALMIC 5 ML BOTTLE OU SCH ×2 (10:17→22:34)
[2017-11-20] MEDS: URSODIOL 300 MG CAPSULE PO SCH ×2 (10:22→22:31)
[2017-11-20] MEDS: LOSARTAN POTASSIUM 50 MG TABLET (FP) PO SCH ×2 (10:22→22:32)
[2017-11-20] MEDS: amLODIPine BESYLATE 5 MG TABLET (FP) PO SCH (10:22)
[2017-11-20] MEDS: POLYETHYLENE GLYCOL 3350 119 GM BTL PO SCH ×2 (10:22→22:34)
[2017-11-20] MEDS: PANTOPRAZOLE 40 MG TABLET (FP) PO SCH (10:22)
[2017-11-20] MEDS: TIMOLOL 0.5% OPHTHALMIC SOL 5 ML BOTTLE OU SCH ×2 (10:22→22:34)
[2017-11-20] MEDS: METOPROLOL SUCCINATE 100 MG TAB.SR.24H (FP) PO SCH (10:23)
[2017-11-20] MEDS: CHOLECALCIFEROL (VITAMIN D3) 400 UNIT TABLET (FP) PO SCH (10:23)
--- NOTE | 2017-11-20 10:24 | PN ---
Progress Note, Physician Chief Complaint: Events noted Feels better History of Present Illness: Patient was seen and examined. Awake and alert. Chart was reviewed Denies chest pain, SOB or palpitations - Current Medication List Current Medications: Active Medications Acetaminophen (Tylenol -) 650 mg PO Q4H PRN PRN Reason: FEVER OR PAIN Last Admin: 11/17/17 12:36 Dose: 650 mg Al Hydroxide/Mg Hydroxide (Mylanta Oral Suspension -) 30 ml PO Q6H PRN PRN Reason: DYSPEPSIA Amlodipine Besylate (Norvasc -) 5 mg PO DAILY [facility] Last Admin: 11/20/17 10:22 Dose: 5 mg Atorvastatin Calcium (Lipitor -) 10 mg PO HS [facility] Last Admin: 11/19/17 21:35 Dose: 10 mg Benzocaine (Americaine Ointment -) 1 applic AL Q6H PRN PRN Reason: PAIN Last Admin: 11/14/17 11:49 Dose: 1 applic Brimonidine Tartrate (Alphagan 0.2% -) 1 drop OU BID [facility] Last Admin: 11/20/17 10:17 Dose: 1 drop Cholecalciferol (Vitamin D3 -) 400 unit PO DAILY [facility] Last Admin: 11/20/17 10:23 Dose: 400 unit Latanoprost (Xalatan 0.005% Eye Drops -) 1 drop OU [facility] Last Admin: 11/19/17 21:37 Dose: 1 drop Levothyroxine Sodium (Synthroid -) 50 mcg PO SuTuThSa@0700 [facility] Last Admin: 11/20/17 06:31 Dose: 50 mcg Levothyroxine Sodium (Synthroid -) 75 mcg PO MoWeFr@0700 [facility] Last Admin: 11/18/17 06:09 Dose: 75 mcg Losartan Potassium (Cozaar -) 50 mg PO BID [facility] Last Admin: 11/20/17 10:22 Dose: 50 mg Metoprolol Succinate (Toprol Xl -) 100 mg PO DAILY [facility] Last Admin: 11/20/17 10:23 Dose: 100 mg Ondansetron HCl (Zofran Injection) 4 mg IVPB Q4H PRN PRN Reason: NAUSEA AND/OR VOMITING Last Admin: 11/14/17 14:01 Dose: 4 mg Pantoprazole Sodium (Protonix -) 40 mg PO DAILY [facility] Last Admin: 11/20/17 10:22 Dose: 40 mg Polyethylene Glycol (Miralax (For Daily Use) -) 17 gm PO BID [facility] Last Admin: 11/20/17 10:22 Dose: Not Given Timolol Maleate (Timoptic 0.5%) 1 drop OU BID [facility] Last Admin: 11/20/17 10:22 Dose: 1 drop Ursodiol (Actigal -) 300 mg PO BID [facility] Last Admin: 11/20/17 10:22 Dose: 300 mg - Objective Vital Signs: Vital Signs Temperature 97.7 F 11/20/17 10:00 Pulse Rate 80 11/20/17 10:00 Respiratory Rate 20 11/20/17 10:00 Blood Pressure 139/95 11/20/17 10:00 O2 Sat by Pulse Oximetry (%) 96 11/19/17 21:00 Eyes: Yes: PERRL HENT: Yes: Atraumatic Neck: Yes: Supple Cardiovascular: Yes: Regular Rate and Rhythm, Murmur (2/6 ELIZABETH), S1, S2 Respiratory: Yes: CTA Bilaterally Gastrointestinal: Yes: Normal Bowel Sounds, Soft. No: Tenderness Edema: No Labs: CBC, BMP 11/20/17 06:30 11/20/17 06:30 INR, PTT INR 1.20 (0.82-1.09) H 11/19/17 07:47 Problem List - Problems (1) Abdominal pain Code(s): R10.9 - UNSPECIFIED ABDOMINAL PAIN Qualifiers: Abdominal location: left lower quadrant Qualified Code(s): R10.32 - Left lower quadrant pain (2) Coronary artery disease Code(s): I25.10 - ATHSCL HEART DISEASE OF [place] CORONARY ARTERY W/O ANG PCTRS Qualifiers: Coronary Disease-Associated Artery/Lesion type: [place] artery [place] vs. transplanted heart: [place] heart Associated angina: without angina Qualified Code(s): I25.10 - Atherosclerotic heart disease of [place] coronary artery without angina pectoris (3) Pacemaker Code(s): Z95.0 - PRESENCE OF CARDIAC PACEMAKER (4) Bile duct calculus Code(s): K80.50 - CALCULUS OF BILE DUCT W/O CHOLANGITIS OR CHOLECYST W/O OBST Qualifiers: Cholecystitis presence: without cholecystitis Biliary obstruction: with biliary obstruction Qualified Code(s): K80.51 - Calculus of bile duct without cholangitis or cholecystitis with obstruction (5) Dilated cbd, acquired Code(s): K83.8 - OTHER SPECIFIED DISEASES OF BILIARY TRACT (6) Hyperlipidemia Code(s): E78.5 - HYPERLIPIDEMIA, UNSPECIFIED Qualifiers: Hyperlipidemia type: pure hypercholesterolemia Qualified Code(s): E78.00 - Pure hypercholesterolemia, unspecified (7) Hypertension Code(s): I10 - ESSENTIAL (PRIMARY) HYPERTENSION Qualifiers: Hypertension type: essential hypertension Qualified Code(s): I10 - Essential (primary) hypertension (8) Hypothyroidism Code(s): E03.9 - HYPOTHYROIDISM, UNSPECIFIED Qualifiers: Hypothyroidism type: unspecified Qualified Code(s): E03.9 - Hypothyroidism , unspecified (9) Moderate aortic valve stenosis Code(s): I35.0 - NONRHEUMATIC AORTIC (VALVE) STENOSIS (10) Neurocardiogenic syncope Code(s): R55 - SYNCOPE AND COLLAPSE (11) Paroxysmal atrial fibrillation Code(s): I48.0 - PAROXYSMAL ATRIAL FIBRILLATION (12) Urinary tract infection Code(s): N39.0 - URINARY TRACT INFECTION, SITE NOT SPECIFIED Qualifiers: Urinary tract infection type: site unspecified Assessment/Plan 1. Dysphagia referable to Achalasia and Schatski ring post dilatation and Botox injection 2. Retained stones post cholecystectomy with biliary duct dilatation post therapeutic ERCP/sphincterotomy and biliary stent 3. CAD angina pectoris, stable 4. 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 Moderate aortic valve stenosis 6. Paroxysmal atrial fibrillation currently in sinus rhythm 7. 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 HTN/HCVD 9. Hyperlipidemia 10. Hypothyroidism 11. GERD PLAN: 1. Antibiotic course 2. Continue Losartan 50 bid, Toprol XL 100 qd and Norvasc 5 qd 3. Continue Lipitor 10 qhs 4. Resume Coumadin and monitor INR 5. GI follow up as stated Further plans are to follow Alejandro Elise MD
--- NOTE | 2017-11-20 13:01 | PN ---
Progress Note, Physician History of Present Illness: Covering for Dr. Caputo, who will resume care on Tuesday No events. Comfortable. Ambulating. No dysphagia - Current Medication List Current Medications: Active Medications Acetaminophen (Tylenol -) 650 mg PO Q4H PRN PRN Reason: FEVER OR PAIN Last Admin: 11/17/17 12:36 Dose: 650 mg Al Hydroxide/Mg Hydroxide (Mylanta Oral Suspension -) 30 ml PO Q6H PRN PRN Reason: DYSPEPSIA Amlodipine Besylate (Norvasc -) 5 mg PO DAILY [facility] Last Admin: 11/20/17 10:22 Dose: 5 mg Atorvastatin Calcium (Lipitor -) 10 mg PO HS [facility] Last Admin: 11/19/17 21:35 Dose: 10 mg Benzocaine (Americaine Ointment -) 1 applic [place] Q6H PRN PRN Reason: PAIN Last Admin: 11/14/17 11:49 Dose: 1 applic Brimonidine Tartrate (Alphagan 0.2% -) 1 drop OU BID [facility] Last Admin: 11/20/17 10:17 Dose: 1 drop Cholecalciferol (Vitamin D3 -) 400 unit PO DAILY [facility] Last Admin: 11/20/17 10:23 Dose: 400 unit Latanoprost (Xalatan 0.005% Eye Drops -) [address] drop [address] [facility] Last Admin: 11/19/17 21:37 Dose: 1 drop Levothyroxine Sodium (Synthroid -) 50 mcg PO SuTuThSa@0700 [facility] Last Admin: 11/20/17 06:31 Dose: 50 mcg Levothyroxine Sodium (Synthroid -) 75 mcg PO MoWeFr@0700 [facility] Last Admin: 11/18/17 06:09 Dose: 75 mcg Losartan Potassium (Cozaar -) 50 mg PO BID [facility] Last Admin: 11/20/17 10:22 Dose: 50 mg Metoprolol Succinate (Toprol Xl -) 100 mg PO DAILY [facility] Last Admin: 11/20/17 10:23 Dose: 100 mg Ondansetron HCl (Zofran Injection) 4 mg IVPB Q4H PRN PRN Reason: NAUSEA AND/OR VOMITING Last Admin: 11/14/17 14:01 Dose: 4 mg Pantoprazole Sodium (Protonix -) 40 mg PO DAILY [facility] Last Admin: 11/20/17 10:22 Dose: 40 mg Polyethylene Glycol (Miralax (For Daily Use) -) 17 gm PO BID [facility] Last Admin: 11/20/17 10:22 Dose: Not Given Timolol Maleate (Timoptic 0.5%) 1 drop OU BID [facility] Last Admin: 11/20/17 10:22 Dose: 1 drop Ursodiol (Actigal -) 300 mg PO BID [facility] Last Admin: 11/20/17 10:22 Dose: 300 mg - Objective Vital Signs: Vital Signs Temperature 97.7 F 11/20/17 10:00 Pulse Rate 80 11/20/17 10:00 Respiratory Rate 20 11/20/17 10:00 Blood Pressure 139/95 11/20/17 10:00 O2 Sat by Pulse Oximetry (%) 95 11/20/17 09:00 Constitutional: Yes: No Distress, Calm Eyes: Yes: Conjunctiva Clear HENT: Yes: Atraumatic Neck: Yes: Supple Gastrointestinal: Yes: Soft Labs: CBC, BMP 11/20/17 06:30 11/20/17 06:30 INR, PTT INR 1.20 (0.82-1.09) H 11/19/17 07:47 Abnormal Lab Results 11/20/17 06:30 AST 12 L ALT 11 L Albumin 2.5 L Problem List - Problems (1) Achalasia Code(s): K22.0 - ACHALASIA OF CARDIA (2) Dysphagia Code(s): R13.10 - DYSPHAGIA, UNSPECIFIED Qualifiers: Dysphagia type: esophageal phase Qualified Code(s): R13.10 - Dysphagia, unspecified Assessment/Plan good response to achalasia intervention. Continue soft diet. Coumadin can be restarted tonight if continues to do well
[2017-11-20] MEDS ORDERED: WARFARIN NA 2 MG TABLET (UD) PO ONE (18:00)
[2017-11-20] MEDS: ATORVASTATIN CA 10 MG TABLET (FP) PO SCH (22:31)
[2017-11-20] MEDS: LATANOPROST 0.005% OPHTH SOLN 2.5ML BOTTLE OU SCH (22:35)
[2017-11-21] MEDS: LEVOTHYROXINE NA 75 MCG TABLET (FP) PO SCH (06:49)
[2017-11-21 08:43] LABS: INR 1.12 (0.82-1.09); PROTHROMBIN TIME (PATIENT) 12.6 SEC (9.98-11.88)
[2017-11-21] MEDS: URSODIOL 300 MG CAPSULE PO SCH ×2 (10:22→21:51)
[2017-11-21] MEDS: amLODIPine BESYLATE 5 MG TABLET (FP) PO SCH (10:22)
[2017-11-21] MEDS: CHOLECALCIFEROL (VITAMIN D3) 400 UNIT TABLET (FP) PO SCH (10:23)
[2017-11-21] MEDS: LOSARTAN POTASSIUM 50 MG TABLET (FP) PO SCH ×2 (10:23→21:51)
[2017-11-21] MEDS: PANTOPRAZOLE 40 MG TABLET (FP) PO SCH (10:23)
[2017-11-21] MEDS: BRIMONIDINE TARTRATE 0.2% OPHTHALMIC 5 ML BOTTLE OU SCH ×2 (10:23→21:51)
[2017-11-21] MEDS: METOPROLOL SUCCINATE 100 MG TAB.SR.24H (FP) PO SCH (10:23)
[2017-11-21] MEDS: TIMOLOL 0.5% OPHTHALMIC SOL 5 ML BOTTLE OU SCH ×2 (10:23→21:51)
[2017-11-21] MEDS: POLYETHYLENE GLYCOL 3350 119 GM BTL PO SCH ×2 (10:26→21:51)
--- NOTE | 2017-11-21 11:58 | PN ---
Progress Note, Physician History of Present Illness: Tolerating soft diet post Schatzki ring dilatation and Botox injection of achalasia with good relaxation. - Current Medication List Current Medications: Active Medications Acetaminophen (Tylenol -) 650 mg PO Q4H PRN PRN Reason: FEVER OR PAIN Last Admin: 11/17/17 12:36 Dose: 650 mg Al Hydroxide/Mg Hydroxide (Mylanta Oral Suspension -) 30 ml PO Q6H PRN PRN Reason: DYSPEPSIA Amlodipine Besylate (Norvasc -) 5 mg PO DAILY [facility] Last Admin: 11/21/17 10:22 Dose: 5 mg Atorvastatin Calcium (Lipitor -) 10 mg PO HS [facility] Last Admin: 11/20/17 22:31 Dose: 10 mg Benzocaine (Americaine Ointment -) 1 applic [place] Q6H PRN PRN Reason: PAIN Last Admin: 11/14/17 11:49 Dose: 1 applic Brimonidine Tartrate (Alphagan 0.2% -) 1 drop OU BID [facility] Last Admin: 11/21/17 10:23 Dose: 1 drop Cholecalciferol (Vitamin D3 -) 400 unit PO DAILY [facility] Last Admin: 11/21/17 10:23 Dose: 400 unit Latanoprost (Xalatan 0.005% Eye Drops -) 1 drop OU [facility] Last Admin: 11/20/17 22:35 Dose: 1 drop Levothyroxine Sodium (Synthroid -) 50 mcg PO SuTuThSa@0700 [facility] Last Admin: 11/20/17 06:31 Dose: 50 mcg Levothyroxine Sodium (Synthroid -) 75 mcg PO MoWeFr@0700 [facility] Last Admin: 11/21/17 06:49 Dose: 75 mcg Losartan Potassium (Cozaar -) 50 mg PO BID [facility] Last Admin: 11/21/17 10:23 Dose: 50 mg Metoprolol Succinate (Toprol Xl -) 100 mg PO DAILY [facility] Last Admin: 11/21/17 10:23 Dose: 100 mg Ondansetron HCl (Zofran Injection) 4 mg IVPB Q4H PRN PRN Reason: NAUSEA AND/OR VOMITING Last Admin: 11/14/17 14:01 Dose: 4 mg Pantoprazole Sodium (Protonix -) 40 mg PO DAILY [facility] Last Admin: 11/21/17 10:23 Dose: 40 mg Polyethylene Glycol (Miralax (For Daily Use) -) 17 gm PO BID [facility] Last Admin: 11/21/17 10:26 Dose: Not Given Timolol Maleate (Timoptic 0.5%) 1 drop OU BID [facility] Last Admin: 11/21/17 10:23 Dose: 1 drop Ursodiol (Actigal -) 300 mg PO BID [facility] Last Admin: 11/21/17 10:22 Dose: 300 mg - Objective Vital Signs: Vital Signs Temperature 97.3 F L 11/21/17 10:00 Pulse Rate 85 11/21/17 10:00 Respiratory Rate 18 11/21/17 10:00 Blood Pressure 143/91 11/21/17 10:00 O2 Sat by Pulse Oximetry (%) 96 11/20/17 21:00 Constitutional: Yes: No Distress, Calm Neck: Yes: Supple Cardiovascular: Yes: Regular Rate and Rhythm, Murmur (2/6 SM) Respiratory: Yes: Regular, CTA Bilaterally Gastrointestinal: Yes: Normal Bowel Sounds, Soft Edema: No Labs: CBC, BMP 11/20/17 06:30 11/20/17 06:30 INR, PTT INR 1.12 (0.82-1.09) 11/21/17 07:00 Problem List - Problems (1) Dilated cbd, acquired Code(s): K83.8 - OTHER SPECIFIED DISEASES OF BILIARY TRACT (2) Hyperlipidemia Code(s): E78.5 - HYPERLIPIDEMIA, UNSPECIFIED Qualifiers: Hyperlipidemia type: pure hypercholesterolemia Qualified Code(s): E78.00 - Pure hypercholesterolemia, unspecified (3) Hypertension Code(s): I10 - ESSENTIAL (PRIMARY) HYPERTENSION Qualifiers: Hypertension type: essential hypertension Qualified Code(s): I10 - Essential (primary) hypertension (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 Code(s): I11.9 - HYPERTENSIVE HEART DISEASE WITHOUT HEART FAILURE (5) Hypothyroidism Code(s): E03.9 - HYPOTHYROIDISM, UNSPECIFIED Qualifiers: Hypothyroidism type: unspecified Qualified Code(s): E03.9 - Hypothyroidism , unspecified (6) Moderate aortic valve stenosis Code(s): I35.0 - NONRHEUMATIC AORTIC (VALVE) STENOSIS (7) Neurocardiogenic syncope Code(s): R55 - SYNCOPE AND COLLAPSE (8) Paroxysmal atrial fibrillation Code(s): I48.0 - PAROXYSMAL ATRIAL FIBRILLATION (9) Coronary artery disease Code(s): I25.10 - ATHSCL HEART DISEASE OF [place] CORONARY ARTERY W/O ANG PCTRS Qualifiers: Coronary Disease-Associated Artery/Lesion type: [place] artery [place] vs. transplanted heart: [place] heart Associated angina: without angina Qualified Code(s): I25.10 - Atherosclerotic heart disease of [place] coronary artery without angina pectoris (10) Fecal impaction of colon Code(s): K56.41 - FECAL IMPACTION (11) Pacemaker Code(s): Z95.0 - PRESENCE OF CARDIAC PACEMAKER (12) Bile duct calculus Code(s): K80.50 - CALCULUS OF BILE DUCT W/O CHOLANGITIS OR CHOLECYST W/O OBST Qualifiers: Cholecystitis presence: without cholecystitis Biliary obstruction: with biliary obstruction Qualified Code(s): K80.51 - Calculus of bile duct without cholangitis or cholecystitis with obstruction (13) Colic, biliary Code(s): K80.50 - CALCULUS OF BILE DUCT W/O CHOLANGITIS OR CHOLECYST W/O OBST (14) History of endoscopic retrograde cholangiopancreatography Code(s): Z98.890 - OTHER SPECIFIED POSTPROCEDURAL STATES (15) Lower esophageal ring (Schatzki) Code(s): K22.2 - ESOPHAGEAL OBSTRUCTION (16) Achalasia Code(s): K22.0 - ACHALASIA OF CARDIA (17) Dysphagia Code(s): R13.10 - DYSPHAGIA, UNSPECIFIED Qualifiers: Dysphagia type: esophageal phase Qualified Code(s): R13.10 - Dysphagia, unspecified (18) GERD (gastroesophageal reflux disease) Code(s): K21.9 - GASTRO-ESOPHAGEAL REFLUX DISEASE WITHOUT ESOPHAGITIS Qualifiers: Esophagitis presence: without esophagitis Qualified Code(s): K21.9 - Gastro -esophageal reflux disease without esophagitis Assessment/Plan 1. Dysphagia referable to Achalasia and Schatski ring post dilatation and Botox injection 2. Retained stones post cholecystectomy with biliary duct dilatation post therapeutic ERCP/sphincterotomy and biliary stent 3. CAD angina pectoris, stable 4. 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 Moderate aortic valve stenosis 6. Paroxysmal atrial fibrillation currently in sinus rhythm with subtherapeutic INR 7. 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 HTN/HCVD 9. Hyperlipidemia 10. Hypothyroidism 11. GERD PLAN: 1. Completed antibiotic course 2. Continue Losartan 50 bid, Toprol XL 100 qd and Norvasc 5 qd 3. Continue Lipitor 10 qhs 4. Resumed Coumadin and monitor INR 5. Repeat ERCP and EGD in 3 months
--- NOTE | 2017-11-21 12:01 | PN ---
GI Progress Note Subjective: GI NOte: Swallowing is much improved although feels that certain food are abrading her esophagus. Will switch to chopped diet. - Objective Vital Signs: Vital Signs Temperature 97.3 F L 11/21/17 10:00 Pulse Rate 85 11/21/17 10:00 Respiratory Rate 18 11/21/17 10:00 Blood Pressure 143/91 11/21/17 10:00 O2 Sat by Pulse Oximetry (%) 96 11/20/17 21:00 Constitutional: Calm ...Auscultate: Yes: Normoactive Bowel Sounds ...Palpate: Yes: Soft, Other (nontender) Labs: CBC, BMP 11/20/17 06:30 11/20/17 06:30 INR, PTT INR 1.12 (0.82-1.09) 11/21/17 07:00 Problem List - Problems (1) Colic, biliary Code(s): K80.50 - CALCULUS OF BILE DUCT W/O CHOLANGITIS OR CHOLECYST W/O OBST (2) Constipation Code(s): K59.00 - CONSTIPATION, UNSPECIFIED Qualifiers: Constipation type: unspecified constipation type Qualified Code(s): K59.00 - Constipation, unspecified (3) Bile duct calculus Code(s): K80.50 - CALCULUS OF BILE DUCT W/O CHOLANGITIS OR CHOLECYST W/O OBST Qualifiers: Cholecystitis presence: without cholecystitis Biliary obstruction: with biliary obstruction Qualified Code(s): K80.51 - Calculus of bile duct without cholangitis or cholecystitis with obstruction (4) Vomiting Code(s): R11.10 - VOMITING, UNSPECIFIED Qualifiers: Vomiting type: unspecified (5) Dysphagia Assessment/Plan: Relieved by combination of dilation and Botox injection and confirmed by UGI. Coumadin resumed. Switch to chopped diet. If tolerated I have no objections to discharge on a PPI. Code(s): R13.10 - DYSPHAGIA, UNSPECIFIED Qualifiers: Dysphagia type: esophageal phase Qualified Code(s): R13.10 - Dysphagia, unspecified
--- NOTE | 2017-11-21 15:26 | PN ---
Progress Note, Physician Chief Complaint: doing well restarted on coumadin ate O chopped diet (did not feel well with regular food) - Current Medication List Current Medications: Active Medications Acetaminophen (Tylenol -) 650 mg PO Q4H PRN PRN Reason: FEVER OR PAIN Last Admin: 11/17/17 12:36 Dose: 650 mg Al Hydroxide/Mg Hydroxide (Mylanta Oral Suspension -) 30 ml PO Q6H PRN PRN Reason: DYSPEPSIA Amlodipine Besylate (Norvasc -) 5 mg PO DAILY [facility] Last Admin: 11/21/17 10:22 Dose: 5 mg Atorvastatin Calcium (Lipitor -) 10 mg PO HS [facility] Last Admin: 11/20/17 22:31 Dose: 10 mg Benzocaine (Americaine Ointment -) 1 applic [place] Q6H PRN PRN Reason: PAIN Last Admin: 11/14/17 11:49 Dose: 1 applic Brimonidine Tartrate (Alphagan 0.2% -) 1 drop OU BID [facility] Last Admin: 11/21/17 10:23 Dose: 1 drop Cholecalciferol (Vitamin D3 -) 400 unit PO DAILY [facility] Last Admin: 11/21/17 10:23 Dose: 400 unit Latanoprost (Xalatan 0.005% Eye Drops -) 1 drop OU [facility] Last Admin: 11/20/17 22:35 Dose: 1 drop Levothyroxine Sodium (Synthroid -) 50 mcg PO SuTuThSa@0700 [facility] Last Admin: 11/20/17 06:31 Dose: 50 mcg Levothyroxine Sodium (Synthroid -) 75 mcg PO MoWeFr@0700 [facility] Last Admin: 11/21/17 06:49 Dose: 75 mcg Losartan Potassium (Cozaar -) 50 mg PO BID [facility] Last Admin: 11/21/17 10:23 Dose: 50 mg Metoprolol Succinate (Toprol Xl -) 100 mg PO DAILY [facility] Last Admin: 11/21/17 10:23 Dose: 100 mg Ondansetron HCl (Zofran Injection) 4 mg IVPB Q4H PRN PRN Reason: NAUSEA AND/OR VOMITING Last Admin: 11/14/17 14:01 Dose: 4 mg Pantoprazole Sodium (Protonix -) 40 mg PO DAILY [facility] Last Admin: 11/21/17 10:23 Dose: 40 mg Polyethylene Glycol (Miralax (For Daily Use) -) 17 gm PO BID [facility] Last Admin: 11/21/17 10:26 Dose: Not Given Timolol Maleate (Timoptic 0.5%) 1 drop OU BID [facility] Last Admin: 11/21/17 10:23 Dose: 1 drop Ursodiol (Actigal -) 300 mg PO BID [facility] Last Admin: 11/21/17 10:22 Dose: 300 mg Warfarin Sodium (Coumadin -) 2 mg PO DAILY@1800 [facility] - Objective Vital Signs: Vital Signs Temperature 97.3 F L 11/21/17 10:00 Pulse Rate 85 11/21/17 10:00 Respiratory Rate 18 11/21/17 10:00 Blood Pressure 143/91 11/21/17 10:00 O2 Sat by Pulse Oximetry (%) 97 11/21/17 09:00 Constitutional: Yes: No Distress, Calm Eyes: Yes: Conjunctiva Clear HENT: Yes: Atraumatic Neck: Yes: Supple Cardiovascular: Yes: Regular Rate and Rhythm Respiratory: Yes: CTA Bilaterally Gastrointestinal: Yes: Soft. No: Distention Musculoskeletal: No: Joint Stiffness, Joint Swelling Extremities: No: Cold, Cool Edema: No Neurological: Yes: WNL, Alert, Oriented ...Motor Strength: WNL Psychiatric: Yes: WNL, Alert, Oriented. No: Agitated, Suicidal Ideation Labs: CBC, BMP 11/20/17 06:30 11/20/17 06:30 INR, PTT INR 1.12 (0.82-1.09) 11/21/17 07:00 - ....Imaging Other: Report Reviewed Assessment/Plan The patient is a 87 year old female, with a significant past medical history of Atrial fibrillation (on Coumadin), HTN, HLD, CAD s/p stents and pacemaker, Hypothyroidism, Diverticulitis, CBD stone extracted via ERCP 10/29; recurrent UTIs admitted with abdominal pain, recurrent CBD stones s/p ERCP and stones extractions; achalasia chopped food s/p EGD on 11/18 f/u labs; GI f/u will need repeat EGD in 3 months restarted coumadin 48 H after EGD falls decubs PFX d/w pt and staff
--- NOTE | 2017-11-21 16:08 | PATH ---
Surgical Pathology Report Patient Name: SHAUN KING [facility]. Rec. #: [id number] /Age/Gender: 1930 (Age: 87) / F Account: [id number] Location: [facility]/SURG Taken: 11/18/2017 Received: 11/18/2017 Reported: 11/21/2017 Physicians: Amanda Mark M.D. Specimen(s) Received A: BX GASTRIC ANTRUM B: BX SCHATZKI'S RING C: BX ESOPHAGUS Clinical History Preoperative diagnosis: Dysphagia Postoperative diagnosis: GERD with Schatzki's ring versus achalasia Final Diagnosis A. STOMACH, ANTRUM, BIOPSY: GASTRIC ANTRAL MUCOSA WITH MILD CHRONIC GASTRITIS. IMMUNOHISTOCHEMICAL STAIN FOR H. PYLORI IS NEGATIVE. B. SCHATZI'S RING, BIOPSY: SQUAMOCOLUMNAR MUCOSA WITH VASCULAR CONGESTION, MODERATE TO SEVERE ACUTE AND CHRONIC INFLAMMATION IN A BACKGROUND OF REFLUX TYPE CHANGES. NO INTESTINAL METAPLASIA OR DYSPLASIA IDENTIFIED. GMS SPECIAL STAIN FOR FUNGUS IS NEGATIVE. C. MID ESOPHAGUS, BIOPSY: SQUAMOUS MUCOSA WITH MODERATE TO SEVERE ACUTE ESOPHAGITIS IN A BACKGROUND OF REFLUX TYPE CHANGES. NO INTESTINAL METAPLASIA OR DYSPLASIA IDENTIFIED. GMS SPECIAL STAIN FOR FUNGUS IS NEGATIVE. Electronically Signed Khadra Irwin M.D. Gross Description A. Received in formalin, labeled "biopsy gastric antrum" is a downing, irregular portion of soft tissue measuring 0.3 cm. in greatest dimension. The specimen is submitted in toto in one cassette. B. Received in formalin, labeled "biopsy Schatzki's ring" are 3 downing, irregular portions of soft tissue ranging from 0.3-0.4 cm. in greatest dimension. The specimens are submitted in toto in one cassette. C. Received in formalin, labeled "biopsy midesophagus" are 2 downing, irregular portions of soft tissue averaging 0.5 cm. in greatest dimension. The specimens are submitted in toto in one cassette. 11/18/201711/18/2017
[2017-11-21] MEDS ORDERED: WARFARIN NA 2 MG TABLET (UD) PO SCH (18:00)
[2017-11-21] MEDS ORDERED: PT OWN MED DRAWER 7, Y5N ONE (21:46)
[2017-11-21] MEDS: LATANOPROST 0.005% OPHTH SOLN 2.5ML BOTTLE OU SCH (21:51)
[2017-11-21] MEDS: ATORVASTATIN CA 10 MG TABLET (FP) PO SCH (21:51)
[2017-11-22] MEDS: LEVOTHYROXINE NA 50 MCG TABLET (FP) PO SCH (06:32)
[2017-11-22 06:43] VITALS: TEMP 98.3
--- NOTE | 2017-11-22 07:27 | DS ---
Physical Examination Vital Signs: Vital Signs Temperature 98.3 F 11/22/17 06:00 Pulse Rate 20 L 11/22/17 06:00 Respiratory Rate 20 11/22/17 06:00 Blood Pressure 148/93 11/22/17 06:00 O2 Sat by Pulse Oximetry (%) 92 L 11/21/17 21:00 Findings/Remarks: OOB to chair feels well tolerated diet well; wants to go home scripts done, f/u needed d/w pt Constitutional: Yes: No Distress, Calm Eyes: Yes: Conjunctiva Clear HENT: Yes: Atraumatic Neck: Yes: Supple Cardiovascular: Yes: Regular Rate and Rhythm Respiratory: Yes: CTA Bilaterally Gastrointestinal: Yes: Soft. No: Distention, Tenderness Renal/: No: CVA Tenderness - Left, CVA Tenderness - Right Musculoskeletal: No: Joint Stiffness, Joint Swelling Extremities: No: Cold, Cool, Cyanosis Edema: No Integumentary: No: Rash, Venous Stasis Changes Neurological: Yes: WNL, Alert, Oriented ...Motor Strength: WNL Psychiatric: Yes: WNL, Alert, Oriented. No: Agitated, Suicidal Ideation Labs: CBC, BMP 11/20/17 06:30 11/20/17 06:30 Discharge Summary Reason For Visit: UTI Current Active Problems Abdominal pain (Acute) Achalasia (Acute) Achalasia and cardiospasm (Acute) Atrial fibrillation (Acute) Coronary artery disease (Acute) Dysphagia (Acute) Fecal impaction of colon (Acute) GERD (gastroesophageal reflux disease) (Acute) History of endoscopic retrograde cholangiopancreatography (Acute) Lower esophageal ring (Schatzki) (Acute) Pacemaker (Acute) Vomiting (Acute) Procedures: Principal: admitted with CBD stones, had ERCP per GI Other Procedures: 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 also had UTI and received IV ATB Hospital Course: improved with above; DC home with GI and cardiology and f/u as advised Condition: Stable - Instructions Diet, Activity, Other Instructions: f/u PCP and GI in 1-2 weeks EGD in 3 months per GI f/u and cardiology in 2-4 weeks coumadin per INR RTER if worse or recurrent, fever/abdominal pain falls PFX d/w pt Referrals: Gabe Richardson MD [Primary Care Provider] - Minh Caputo MD [Staff Physician] - Lance Mccord MD [Staff Physician] - Disposition: VNS/HOME HEALTH CARE - Home Medications Comprehensive Discharge Medication List: Ambulatory Orders Levothyroxine [Synthroid -] 50 mcg PO ASDIR 10/31/16 Warfarin Na [Coumadin -] 1 mg PO DAILY@1800 1 Days tablet NS 11/10/16 Latanoprost 0.005% Eye Drops [Xalatan 0.005% Eye Drops -] 1 drop OU HS 12/16/16 Losartan Potassium [Cozaar -] 50 mg PO BID 12/16/16 Simvastatin 20 mg PO DAILY 12/16/16 Amlodipine Besylate 5 mg PO DAILY 03/15/17 Aspirin Coated [Ecotrin -] 81 mg PO DAILY 03/15/17 Polyethylene Glycol 3350 [Miralax 119 gm Btl -] 17 gm PO DAILY 03/15/17 Ascorbic Acid [Vitamin C] 500 mg PO DAILY 03/24/17 Cholecalciferol (Vitamin D3) [Vitamin D -] 400 unit PO DAILY 03/24/17 Methenamine Hippurate [Hiprex [Nf] -] 2 gm PO BID 03/24/17 Aspirin 81 mg PO DAILY 11/05/17 Dorzolamide HCl [Trusopt 2%] 1 drop OD BID 11/05/17 Metoprolol Succinate 100 mg PO DAILY 11/05/17 Brimonidine Tartrate/Timolol [Combigan Eye Drops] 1 drop OU BID 11/06/17
[2017-11-22 07:53] LABS: INR 1.29 (0.82-1.09); PROTHROMBIN TIME (PATIENT) 14.6 SEC (9.98-11.88)
[2017-11-22] MEDS ORDERED: PT OWN MED DRAWER 7, Y5N ONE (10:19)
[2017-11-22] MEDS: METOPROLOL SUCCINATE 100 MG TAB.SR.24H (FP) PO SCH (10:23)
[2017-11-22] MEDS: PANTOPRAZOLE 40 MG TABLET (FP) PO SCH (10:23)
[2017-11-22] MEDS: URSODIOL 300 MG CAPSULE PO SCH (10:23)
[2017-11-22] MEDS: BRIMONIDINE TARTRATE 0.2% OPHTHALMIC 5 ML BOTTLE OU SCH (10:23)
[2017-11-22] MEDS: LOSARTAN POTASSIUM 50 MG TABLET (FP) PO SCH (10:23)
[2017-11-22] MEDS: CHOLECALCIFEROL (VITAMIN D3) 400 UNIT TABLET (FP) PO SCH (10:23)
[2017-11-22] MEDS: amLODIPine BESYLATE 5 MG TABLET (FP) PO SCH (10:23)
[2017-11-22] MEDS: TIMOLOL 0.5% OPHTHALMIC SOL 5 ML BOTTLE OU SCH (10:23)
[2017-11-22] MEDS: POLYETHYLENE GLYCOL 3350 119 GM BTL PO SCH (10:24)
[2017-11-22 11:27] VITALS: BP 141/78; PULSE 73
--- NOTE | 2017-11-22 11:53 | PN ---
Progress Note, Physician Chief Complaint: Events noted Feels better History of Present Illness: Patient was seen and examined. Awake and alert. Chart was reviewed Denies chest pain, SOB or palpitations - Current Medication List Current Medications: Active Medications Acetaminophen (Tylenol -) 650 mg PO Q4H PRN PRN Reason: FEVER OR PAIN Last Admin: 11/17/17 12:36 Dose: 650 mg Al Hydroxide/Mg Hydroxide (Mylanta Oral Suspension -) 30 ml PO Q6H PRN PRN Reason: DYSPEPSIA Amlodipine Besylate (Norvasc -) 5 mg PO DAILY [facility] Last Admin: 11/22/17 10:23 Dose: 5 mg Atorvastatin Calcium (Lipitor -) 10 mg PO HS [facility] Last Admin: 11/21/17 21:51 Dose: 10 mg Benzocaine (Americaine Ointment -) 1 applic NH Q6H PRN PRN Reason: PAIN Last Admin: 11/14/17 11:49 Dose: 1 applic Brimonidine Tartrate (Alphagan 0.2% -) 1 drop OU BID [facility] Last Admin: 11/22/17 10:23 Dose: 1 drop Cholecalciferol (Vitamin D3 -) 400 unit PO DAILY [facility] Last Admin: 11/22/17 10:23 Dose: 400 unit Latanoprost (Xalatan 0.005% Eye Drops -) 1 drop OU [facility] Last Admin: 11/21/17 21:51 Dose: 1 drop Levothyroxine Sodium (Synthroid -) 50 mcg PO SuTuThSa@0700 [facility] Last Admin: 11/22/17 06:32 Dose: 50 mcg Levothyroxine Sodium (Synthroid -) 75 mcg PO MoWeFr@0700 [facility] Last Admin: 11/21/17 06:49 Dose: 75 mcg Losartan Potassium (Cozaar -) 50 mg PO BID [facility] Last Admin: 11/22/17 10:23 Dose: 50 mg Metoprolol Succinate (Toprol Xl -) 100 mg PO DAILY [facility] Last Admin: 11/22/17 10:23 Dose: 100 mg Ondansetron HCl (Zofran Injection) 4 mg IVPB Q4H PRN PRN Reason: NAUSEA AND/OR VOMITING Last Admin: 11/14/17 14:01 Dose: 4 mg Pantoprazole Sodium (Protonix -) 40 mg PO DAILY [facility] Last Admin: 11/22/17 10:23 Dose: 40 mg Polyethylene Glycol (Miralax (For Daily Use) -) 17 gm PO BID [facility] Last Admin: 11/22/17 10:24 Dose: Not Given Timolol Maleate (Timoptic 0.5%) 1 drop OU BID [facility] Last Admin: 11/22/17 10:23 Dose: 1 drop Ursodiol (Actigal -) 300 mg PO BID [facility] Last Admin: 11/22/17 10:23 Dose: 300 mg Warfarin Sodium (Coumadin -) 2 mg PO DAILY@1800 [facility] Last Admin: 11/21/17 17:12 Dose: 2 mg - Objective Vital Signs: Vital Signs Temperature 98.3 F 11/22/17 10:00 Pulse Rate 73 11/22/17 10:00 Respiratory Rate 18 11/22/17 10:00 Blood Pressure 141/78 11/22/17 10:00 O2 Sat by Pulse Oximetry (%) 96 11/22/17 09:00 Eyes: Yes: PERRL HENT: Yes: Atraumatic Neck: Yes: Supple Cardiovascular: Yes: Regular Rate and Rhythm, S1, S2 Respiratory: Yes: CTA Bilaterally Gastrointestinal: Yes: Normal Bowel Sounds, Soft. No: Tenderness Edema: No Labs: INR, PTT INR 1.29 (0.82-1.09) H 11/22/17 06:00 Problem List - Problems (1) Abdominal pain Code(s): R10.9 - UNSPECIFIED ABDOMINAL PAIN Qualifiers: Abdominal location: left lower quadrant Qualified Code(s): R10.32 - Left lower quadrant pain (2) Coronary artery disease Code(s): I25.10 - ATHSCL HEART DISEASE OF [place] CORONARY ARTERY W/O ANG PCTRS Qualifiers: Coronary Disease-Associated Artery/Lesion type: [place] artery [place] vs. transplanted heart: [place] heart Associated angina: without angina Qualified Code(s): I25.10 - Atherosclerotic heart disease of [place] coronary artery without angina pectoris (3) Pacemaker Code(s): Z95.0 - PRESENCE OF CARDIAC PACEMAKER (4) Bile duct calculus Code(s): K80.50 - CALCULUS OF BILE DUCT W/O CHOLANGITIS OR CHOLECYST W/O OBST Qualifiers: Cholecystitis presence: without cholecystitis Biliary obstruction: with biliary obstruction Qualified Code(s): K80.51 - Calculus of bile duct without cholangitis or cholecystitis with obstruction (5) Dilated cbd, acquired Code(s): K83.8 - OTHER SPECIFIED DISEASES OF BILIARY TRACT (6) Hyperlipidemia Code(s): E78.5 - HYPERLIPIDEMIA, UNSPECIFIED Qualifiers: Hyperlipidemia type: pure hypercholesterolemia Qualified Code(s): E78.00 - Pure hypercholesterolemia, unspecified (7) Hypertension Code(s): I10 - ESSENTIAL (PRIMARY) HYPERTENSION Qualifiers: Hypertension type: essential hypertension Qualified Code(s): I10 - Essential (primary) hypertension (8) Hypothyroidism Code(s): E03.9 - HYPOTHYROIDISM, UNSPECIFIED Qualifiers: Hypothyroidism type: unspecified Qualified Code(s): E03.9 - Hypothyroidism , unspecified (9) Moderate aortic valve stenosis Code(s): I35.0 - NONRHEUMATIC AORTIC (VALVE) STENOSIS (10) Neurocardiogenic syncope Code(s): R55 - SYNCOPE AND COLLAPSE (11) Paroxysmal atrial fibrillation Code(s): I48.0 - PAROXYSMAL ATRIAL FIBRILLATION (12) Urinary tract infection Code(s): N39.0 - URINARY TRACT INFECTION, SITE NOT SPECIFIED Qualifiers: Urinary tract infection type: site unspecified Assessment/Plan 1. Dysphagia referable to Achalasia and Schatski ring post dilatation and Botox injection 2. Retained stones post cholecystectomy with biliary duct dilatation post therapeutic ERCP/sphincterotomy and biliary stent 3. CAD angina pectoris, stable 4. 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 Moderate aortic valve stenosis 6. Paroxysmal atrial fibrillation currently in sinus rhythm 7. 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 HTN/HCVD 9. Hyperlipidemia 10. Hypothyroidism 11. GERD PLAN: 1. Antibiotic course 2. Continue Losartan 50 bid, Toprol XL 100 qd and Norvasc 5 qd 3. Continue Lipitor 10 qhs 4. Continue Coumadin and monitor INR - can be managed as outpatient. Patient is to follow up with Dr. Willoughby in the office later this week Discharge planning Further plans are to follow Alejandro Elise MD
== END 2017-11-22 14:03 | disposition home health service (06) | DRG 445 ==
LOC: JER 23:00 → J8W 23:00 → JER 23:01 → J8W 23:02
PROVIDERS: ADMIT Specialist; ATTEND Specialist
PROC: 0F798DZ Dilation of Common Bile Duct with Intraluminal Device, Via Natural or Artificial Opening Endoscopic (ICD-10-PCS; 2017-11-11)
PROC: 0FC98ZZ Extirpation of Matter from Common Bile Duct, Via Natural or Artificial Opening Endoscopic (ICD-10-PCS; principal; 2017-11-11 12:30)
PROC: 0D758ZZ Dilation of Esophagus, Via Natural or Artificial Opening Endoscopic (ICD-10-PCS; 2017-11-18)
PROC: 3E0G8GC Introduction of Other Therapeutic Substance into Upper GI, Via Natural or Artificial Opening Endoscopic (ICD-10-PCS; 2017-11-18)
PROC: 0DD58ZX Extraction of Esophagus, Via Natural or Artificial Opening Endoscopic, Diagnostic (ICD-10-PCS; 2017-11-18)
PROC: 0DD68ZX Extraction of Stomach, Via Natural or Artificial Opening Endoscopic, Diagnostic (ICD-10-PCS; 2017-11-18)
DX: K80.50 Calculus of bile duct without cholangitis or cholecystitis without obstruction (principal); I25.110 Atherosclerotic heart disease of native coronary artery with unstable angina pectoris; N39.0 Urinary tract infection, site not specified; E78.5 Hyperlipidemia, unspecified; E03.9 Hypothyroidism, unspecified; I08.0 Rheumatic disorders of both mitral and aortic valves; I27.20 Pulmonary hypertension, unspecified; K57.90 Diverticulosis of intestine, part unspecified, without perforation or abscess without bleeding; I11.9 Hypertensive heart disease without heart failure; K64.8 Other hemorrhoids; N31.8 Other neuromuscular dysfunction of bladder; M54.5 Low back pain; M48.00 Spinal stenosis, site unspecified; I48.0 Paroxysmal atrial fibrillation; K21.9 Gastro-esophageal reflux disease without esophagitis; N60.19 Diffuse cystic mastopathy of unspecified breast; H35.30 Unspecified macular degeneration; B96.29 Other Escherichia coli [E. coli] as the cause of diseases classified elsewhere; K59.00 Constipation, unspecified; R13.10 Dysphagia, unspecified; K22.2 Esophageal obstruction; K44.9 Diaphragmatic hernia without obstruction or gangrene; J02.9 Acute pharyngitis, unspecified; R11.10 Vomiting, unspecified; K22.0 Achalasia of cardia; E87.6 Hypokalemia; Z95.0 Presence of cardiac pacemaker; Z95.5 Presence of coronary angioplasty implant and graft; Z79.01 Long term (current) use of anticoagulants
CPT/HCPCS: 36415; 71010-TC; 71046-TC; 74019-TC; 74177-TC; 74220-TC; 74240-TC; 74330-TC; 76705-TC; 80048; 80053; 80076; 81003; 81015; 82150; 83690; 83735; 84443; 85025; 85027; 85610; 85730; 86140; 86850; 86900; 86901; 87086; 87186; 88305-TC; 93005; 93010; 99283-25; J1644; Q9967

== ENCOUNTER 2018-02-23 13:22 | Emergency (ER) | payer OTHER, MEDICARE ==
[2018-02-23 13:31] VITALS: BP 127/68; PULSE 114; TEMP 97.3; BMI 24.6
--- NOTE | 2018-02-23 15:47 | PDOC ---
History of Present Illness - General History Source: Patient Exam Limitations: No Limitations - History of Present Illness Initial Comments: 02/23/18 18:51 The patient is a 87 year old female with a significant past medical history of CBD stone s/p ERCP s/p stent placement, Atrial fibrillation (on Coumadin), HTN, HLD, CAD s/p stents and pacemaker, Hypothyroidism, Diverticulitis, recurrent UTIs who presents to the emergency department with diffuse mid abdominal pain for the past 4 days. The patient reports gradual onset of mid abdominal pain, crampy, constant, 7/10 in severity, worse prior to BM, and not associated with PO intake. Pt notes the abdominal pain improves in the evening. Of note, the patient reports increased gas and increased frequency of bowel movements, with 2 episodes of watery stool, since the onset of the abdominal pain. no blood or black/tarry stool. The patient states she takes Miralax regularly for her chronic constipation. The patient has also taken Gas-X with minimal relief. Patient has been eating less than normal as she was afraid of aggitating her abdominal pain. Pt had a chest CT (ordered by Dr. Malik) on 02/20 which showed a partially occluded biliary stent. Pt also follows Dr. Caputo (GI) who had concern about patients biliary stent and advised the patient to come to the ER. The patient denies CVA pain, blood in the stool or urine, fever/chills, chest pain, headache or dizziness. Patient denies nausea, vomit, or diarrhea. Patient denies dysuria, frequency, urgency or hematuria. Patient denies sick contacts or recent travel. Allergies: erythromycin base Past surgical history: Cholecystectomy, appendectomy, hysterectomy Social history: None PCP: Dr. Jacque Richardson GI: Dr. Caputo Urologist: Halle <Crystal Burden - Last Filed: 02/23/18 18:50> <Everton Doshi - Last Filed: 02/25/18 20:30> - General Chief Complaint: Pain Stated Complaint: ABD PAIN, LETHARGIC Time Seen by Provider: 02/23/18 15:08 Past History <Crystal Burden - Last Filed: 02/23/18 18:50> - Past Medical History Anemia: No Asthma: No Cancer: No Cardiac Disorders: Yes (PACEMAKER X 1) COPD: No CHF: No GI Disorders: Yes (GALLSTONES EVEN THOUGH SHE HAD GALLBLADDER REMOVED) Disorders: Yes (BLADDER INFECTION) HTN: Yes Hypercholesterolemia: Yes Thyroid Disease: Yes (HYPO) - Surgical History Abdominal Surgery: (SLIT IN GALLBLADDDER DUCT, HEMMORHOID REMOVED) Appendectomy: Yes Cardiac Surgery: Yes (PACEMAKER X2 one for bladder) Cholecystectomy: Yes Lung Surgery: No Neurologic Surgery: No - Immunization History Immunization Up to Date: Yes - Suicide/Smoking/Psychosocial Hx Smoking Status: No Smoking History: Never smoked Have you smoked in the past 12 months: No Number of Cigarettes Smoked Daily: 0 Hx Alcohol Use: No Drug/Substance Use Hx: No Substance Use Type: None Hx Substance Use Treatment: No <Everton Doshi - Last Filed: 02/25/18 20:30> - Past Medical History Allergies/Adverse Reactions: Allergies Allergy/AdvReac Type Severity Reaction Status Date / Time erythromycin base Allergy Unknown abdominal Verified 02/23/18 13:27 [Erythromycin Base] pain Home Medications: Ambulatory Orders Warfarin Na [Coumadin -] 1 mg PO DAILY@1800 1 Days tablet NS 11/10/16 Losartan Potassium [Cozaar -] 50 mg PO BID 12/16/16 Simvastatin 20 mg PO DAILY 12/16/16 Amlodipine Besylate 5 mg PO DAILY 03/15/17 Ascorbic Acid [Vitamin C] 500 mg PO DAILY 03/24/17 Cholecalciferol (Vitamin D3) [Vitamin D -] 400 unit PO DAILY 03/24/17 Methenamine Hippurate [Hiprex [Nf] -] 2 gm PO BID 03/24/17 Aspirin 81 mg PO DAILY 11/05/17 Dorzolamide HCl [Trusopt 2% -] 1 drop OD BID 11/05/17 Brimonidine Tartrate/Timolol [Combigan 0.2%-0.5% Eye Drops] 1 drop OU BID Acetaminophen [Tylenol .Regular Strength -] 650 mg PO Q4H PRN tablet 11/22/17 Pantoprazole Sodium [Protonix -] 40 mg PO DAILY #90 tablet.ec 11/22/17 Polyethylene Glycol 3350 [Miralax 119 gm Btl -] 17 gm PO BID bottle 11/22/17 Ursodiol [Actigal -] 300 mg PO BID #90 capsule 11/22/17 Atenolol [Tenormin -] 100 mg PO HS 02/23/18 Latanoprost 0.005% Eye Drops [Xalatan 0.005% Eye Drops -] 2.5 ml OU HS 02/23/18 Levothyroxine [Synthroid -] 50 mcg PO MoWeFr@0700 02/23/18 Sulfamethoxazole/Trimethoprim [Bactrim Ds Tablet] 1 each PO BID #14 tablet 02/23 Abd/GI Specific PMHX - Complaint Specific PMHX Colitis: No Diverticulitis: No Gall Bladder Disease: No GERD: No Hepatitis: No Irritable Bowel Synd (IBS): No Pancreatitis: No GI Ulcer Disease: No <TicoSaranEverton - Last Filed: 02/25/18 20:30> Review of Systems - Review of Systems Able to Perform ROS?: Yes Comments:: 02/23/18 18:52 Constitutional - no reported Fever, Chills, HEENT: no reported vision changes, sore throat Respiratory: no reported cough, sob, hemoptysis Cardiac: no reported chest pain, palpitations, light headedness, leg swelling Abd/GI: +abd pain, nausea, vomiting, no reported blood per rectum, melena, diarrhea : no reported dysuria, frequency, discharge Musculskelatal - no reported back pain, joint swelling skin - no reported bruising, erythema, rash neurological: no reported headache, numbness, focal weakness, tingling, ataxia, hematologic: no reported anemia, easy bruising, easy bleedin <Crystal Burden - Last Filed: 02/23/18 18:50> *Physical Exam - Vital Signs Last Vital Signs Temp Pulse Resp BP Pulse Ox 97.3 F L 114 H 18 127/68 98 02/23/18 13:28 02/23/18 13:28 02/23/18 13:28 02/23/18 13:28 02/23/18 13:28 - Physical Exam Comments: 02/23/18 18:52 Constitutional - no reported Fever, Chills, HEENT: no reported vision changes, sore throat Respiratory: no reported cough, sob, hemoptysis Cardiac: no reported chest pain, palpitations, light headedness, leg swelling Abd/GI: +abd pain, nausea, vomiting, no reported blood per rectum, melena, diarrhea : no reported dysuria, frequency, discharge Musculskelatal - no reported back pain, joint swelling skin - no reported bruising, erythema, rash neurological: no reported headache, numbness, focal weakness, tingling, ataxia, hematologic: no reported anemia, easy bruising, easy bleeding <Crystal Burden - Last Filed: 02/23/18 18:50> - Vital Signs Last Vital Signs Temp Pulse Resp BP Pulse Ox 97.3 F L 114 H 18 127/68 98 02/23/18 13:28 02/23/18 13:28 02/23/18 13:28 02/23/18 13:28 02/23/18 13:28 <TicoEverton - Last Filed: 02/25/18 20:30> ED Treatment Course - LABORATORY CBC & Chemistry Diagram: 02/23/18 16:40 02/23/18 16:40 - ADDITIONAL ORDERS Additional order review: Laboratory Results 02/23/18 02/23/18 02/23/18 16:40 16:40 16:40 PT with INR 34.90 H INR 3.09 H D Sodium 138 Potassium 4.4 Chloride 106 Carbon Dioxide 23 Anion Gap 9 BUN 25 H Creatinine 1.0 Creat Clearance w eGFR 52.33 Random Glucose 106 Calcium 9.7 Total Bilirubin 0.4 Direct Bilirubin < 0.2 AST 16 ALT 18 Alkaline Phosphatase 114 Total Protein 7.9 Albumin 3.3 L Lipase 140 Urine Color Yellow Urine Appearance Cloudy Urine pH 5.0 Ur Specific [place] 1.015 Urine Protein 1+ H Urine Glucose (UA) Negative Urine Ketones Negative Urine Blood Negative Urine Nitrite Negative Urine Bilirubin Negative Urine Urobilinogen Negative Ur Leukocyte Esterase 2+ H Urine WBC (Auto) 50 Urine RBC (Auto) 2 Ur Epithelial Cells Rare Hyaline Casts 3 Urine Mucus Rare 02/23/18 16:40 RBC 3.88 MCV 95.0 MCHC 34.1 RDW 14.0 MPV 9.4 Neutrophils % 65.8 Lymphocytes % 21.0 D Monocytes % 10.3 H Eosinophils % 1.9 Basophils % 1.0 - Medications Given in the ED: ED Medications Discontinued Medications Generic Name Dose Route Start Last Admin Trade Name Freq PRN Reason Stop Dose Admin Sodium Chloride 500 mls @ 500 mls/hr 02/23/18 16:22 02/23/18 16:55 Normal Saline - IV 02/23/18 17:21 500 mls/hr ASDIR STA Administration <Crystal Burden - Last Filed: 02/23/18 18:50> - LABORATORY CBC & Chemistry Diagram: 02/23/18 16:40 02/23/18 16:40 <Everton Doshi - Last Filed: 02/25/18 20:30> Medical Decision Making - Medical Decision Making 02/23/18 15:46 87y F hx of afib on coumadin, hx of CBD stone s/p ERCP s/p stent placement in oct, presents with abdominal pain since tuesday, sharp, constant, is 7/10, worse in the mid abdomen, with frequent epsidoes of loose stools (she is on miralax for constipation) w/o fever/chils, n/v, bpr/melena. on exam pt well appearing in no distress, with mild tenderness in the RUQ and LLQ. ddx includes ?stent reocclusion, consider diverticulitis, gastroenteritis pt declines pain medications for now will ck labs, LFTs, ua will reassess A portion of this note was documented by scribe services under my direction. I have reviewed the details of the note, within reason, and agree with the documentation with the following case summary and management plan written by me 02/23/18 16:[address] hall agree with ct abdomen to pursue further dx of stent vs diverticulitis 02/23/18 19:29 signed out to evening team to rassess and disposition the patient <Everton Doshi - Last Filed: 02/25/18 20:30> *DC/Admit/Observation/Transfer - Attestations Scribe Attestion: 02/23/18 18:53 Documentation prepared by Crystal Burden, acting as medical health researcher for Everton Doshi MD. <Crystal Burden - Last Filed: 02/23/18 18:50> <Everton Doshi - Last Filed: 02/25/18 20:30> Diagnosis at time of Disposition: Abdominal pain, Urinary tract infection - Discharge Dispostion Disposition: HOME Condition at time of disposition: Stable - Prescriptions Prescriptions: Sulfamethoxazole/Trimethoprim [Bactrim Ds Tablet] 1 each PO BID #14 tablet - Referrals Referrals: Jacque Richardson [Primary Care Provider] - Minh Caputo MD [Staff Physician] - - Patient Instructions Printed Discharge Instructions: DI for Urinary Tract Infection (UTI), DI for Abdominal Pain-Adult Additional Instructions: Please follow up with both your doctors by next week. Pt call both of the in the morning. TAke antibiotic as directed. Continua all your medications. - Post Discharge Activity
[2018-02-23] MEDS ORDERED: SODIUM CHLORIDE 500 ML IV STA (16:22)
[2018-02-23 16:55] LABS: EOS % 1.9 % (0-4.5); HEMATOCRIT 36.8 % (32.4-45.2); HEMOGLOBIN 12.6 GM/dL (10.7-15.3); MCH 32.4 pg (25.7-33.7); MCHC 34.1 g/dl (32.0-36.0); MEAN PLT VOLUME 9.4 fl (7.5-11.1); MONO % 10.3 % (3.8-10.2); NEUT % 65.8 % (42.8-82.8); PLATELET COUNT 185 K/MM3 (134-434); RBC 3.88 M/mm3 (3.60-5.2); WHITE BLOOD COUNT 5.4 K/mm3 (4.0-10.0)
[2018-02-23 17:14] LABS: INR 3.09 (0.82-1.09); PROTHROMBIN TIME (PATIENT) 34.9 SEC (9.98-11.88)
[2018-02-23 17:29] LABS: ALBUMIN 3.3 g/dl (3.4-5.0); ANION GAP 9 (8-16); BILIRUBIN,DIRECT < 0.2 mg/dL (0.0-0.2); BILIRUBIN,TOTAL 0.4 mg/dL (0.2-1.0); BLOOD UREA NITROGEN 25 mg/dL (7-18); CALCIUM 9.7 mg/dL (8.5-10.1); CHLORIDE 106 mmol/L (98-107); CO2 23 mmol/L (21-32); GLUCOSE,RANDOM 106 mg/dL (74-106); LIPASE 140 U/L (73-393); POTASSIUM 4.4 mmol/L (3.5-5.1); SGOT/AST 16 U/L (15-37); SGPT/ALT 18 U/L (12-78); SODIUM 138 mmol/L (136-145); TOT PROT 7.9 g/dl (6.4-8.2)
[2018-02-23 17:30] LABS: ALK PHOS 114 U/L (45-117)
[2018-02-23 17:36] LABS: URINE APPEARANCE CLOUDY; URINE BILIRUBIN NEGATIVE (<2.0 mg/dL); URINE BLOOD NEGATIVE (NEGATIVE); URINE COLOR YELLOW; URINE GLUCOSE (UA) NEGATIVE (NEGATIVE); URINE KETONE NEGATIVE (NEGATIVE); URINE NITRITE NEGATIVE (NEGATIVE); URINE UROBILINOGEN NEGATIVE mg/dL (0.2-1.0)
[2018-02-23 17:46] LABS: URINE LEUK ESTERASE 2+ (NEGATIVE); URINE PROTEIN 1+ (NEGATIVE)
[2018-02-23 17:52] LABS: EPI CELLS RARE /HPF (FEW); URINE HYALINE CAST 3 /lpf; URINE MUCUS RARE
[2018-02-23] MEDS ORDERED: SULFAMETHOXAZOLE/TRIMETHOPRIM 800MG/160MG D.S. TABLET PO ONE (21:27)
--- NOTE | 2018-02-23 21:40 | PDOC ---
*Physical Exam - Vital Signs Last Vital Signs Temp Pulse Resp BP Pulse Ox 97.3 F L 114 H 18 127/68 98 02/23/18 13:28 02/23/18 13:28 02/23/18 13:28 02/23/18 13:28 02/23/18 13:28 ED Treatment Course - LABORATORY CBC & Chemistry Diagram: 02/23/18 16:40 02/23/18 16:40 - ADDITIONAL ORDERS Additional order review: Laboratory Results 02/23/18 02/23/18 02/23/18 16:40 16:40 16:40 PT with INR 34.90 H INR 3.09 H D Sodium 138 Potassium 4.4 Chloride 106 Carbon Dioxide 23 Anion Gap 9 BUN 25 H Creatinine 1.0 Creat Clearance w eGFR 52.33 Random Glucose 106 Calcium 9.7 Total Bilirubin 0.4 Direct Bilirubin < 0.2 AST 16 ALT 18 Alkaline Phosphatase 114 Total Protein 7.9 Albumin 3.3 L Lipase 140 Urine Color Yellow Urine Appearance Cloudy Urine pH 5.0 Ur Specific Amber 1.015 Urine Protein 1+ H Urine Glucose (UA) Negative Urine Ketones Negative Urine Blood Negative Urine Nitrite Negative Urine Bilirubin Negative Urine Urobilinogen Negative Ur Leukocyte Esterase 2+ H Urine WBC (Auto) 50 Urine RBC (Auto) 2 Ur Epithelial Cells Rare Hyaline Casts 3 Urine Mucus Rare 02/23/18 16:40 RBC 3.88 MCV 95.0 MCHC 34.1 RDW 14.0 MPV 9.4 Neutrophils % 65.8 Lymphocytes % 21.0 D Monocytes % 10.3 H Eosinophils % 1.9 Basophils % 1.0 - Medications Given in the ED: ED Medications Discontinued Medications Generic Name Dose Route Start Last Admin Trade Name Tatianna PRN Reason Stop Dose Admin Sodium Chloride 500 mls @ 500 mls/hr 02/23/18 16:22 02/23/18 16:55 Normal Saline - IV 02/23/18 17:21 500 mls/hr ASDIR STA Administration *DC/Admit/Observation/Transfer Diagnosis at time of Disposition: Abdominal pain, Urinary tract infection - Discharge Dispostion Disposition: HOME Condition at time of disposition: Stable Admit: No - Prescriptions Prescriptions: Sulfamethoxazole/Trimethoprim [Bactrim Ds Tablet] 1 each PO BID #14 tablet - Referrals Referrals: Jacque Richardson [Primary Care Provider] - Minh Caputo MD [Staff Physician] - - Patient Instructions Printed Discharge Instructions: DI for Urinary Tract Infection (UTI), DI for Abdominal Pain-Adult Additional Instructions: Please follow up with both your doctors by next week. Pt call both of the in the morning. TAke antibiotic as directed. Continua all your medications. - Post Discharge Activity
[2018-02-23] MEDS ORDERED: SULFAMETHOXAZOLE/TRIMETHOPRIM 800MG/160MG D.S. TABLET ONE (21:48)
--- NOTE | 2018-02-24 09:22 | EKG ---
Test Reason : Blood Pressure : / mmHG Vent. Rate : 120 BPM Atrial Rate : 227 BPM P-R Int : 000 ms QRS Dur : 088 ms QT Int : 294 ms P-R-T Axes : 000 -25 218 degrees QTc Int : 415 ms ATRIAL FIBRILLATION WITH RAPID VENTRICULAR RESPONSE SEPTAL INFARCT , AGE UNDETERMINED NONSPECIFIC ST ABNORMALITY Confirmed by DEBORAH MCBRIDE MD ([id number]) on 02/24/2018 9:22:16 AM Referred By: Confirmed By:DEBORAH MCBRIDE MD
== END 2018-02-23 22:06 | disposition home or self-care (01) ==
LOC: JER 13:22
PROC: 3E0337Z Introduction of Electrolytic and Water Balance Substance into Peripheral Vein, Percutaneous Approach (ICD-10-PCS; principal; 2018-02-23)
DX: N39.0 Urinary tract infection, site not specified (principal); I25.10 Atherosclerotic heart disease of native coronary artery without angina pectoris; Z95.5 Presence of coronary angioplasty implant and graft; I48.91 Unspecified atrial fibrillation; Z79.01 Long term (current) use of anticoagulants; Z95.0 Presence of cardiac pacemaker; E78.00 Pure hypercholesterolemia, unspecified; E03.9 Hypothyroidism, unspecified; Z87.19 Personal history of other diseases of the digestive system; K80.20 Calculus of gallbladder without cholecystitis without obstruction; Z96.0 Presence of urogenital implants; Z96.89 Presence of other specified functional implants; Z95.828 Presence of other vascular implants and grafts; Z87.440 Personal history of urinary (tract) infections
CPT/HCPCS: 36415; 74177-TC; 80053; 81003; 81015; 82248; 83690; 85025; 85610; 93005; 93010; 99284-25

== ENCOUNTER 2018-02-27 10:35 | Inpatient (IN) | payer OTHER, MEDICARE ==
--- NOTE | 2018-02-27 10:38 | PDOC ---
History of Present Illness - General Chief Complaint: Shortness of Breath Stated Complaint: Shortness of Breath Time Seen by Provider: 02/27/18 10:38 - History of Present Illness Initial Comments: 02/27/18 10:39 Ms. Leal is an 87 yo female w/ pmh of CBD stones s/p ERCP and stent placement, afib on coumadin, HTN, HLD, CAD s/p stendts w/ pacemaker for syncopal events, hypothyroidism, diverticulitis, and recurrent UTIs last seen in ER 02/23 and discharged w/ UTI diagnosis who presents complaining of new onset weakness she believes is from her medication. She reports she has not eaten or drunk much since she began the medication and has had intermittent diarrhea. Reports associated shortness of breath as well. She called EMS as she was too weak to get dressed this AM. The patient denies chest pain, headache and dizziness. Denies fever, chills, nausea, vomit, diarrhea and constipation. Denies dysuria, frequency, urgency and hematuria. Past History - Past Medical History Allergies/Adverse Reactions: Allergies Allergy/AdvReac Type Severity Reaction Status Date / Time erythromycin base Allergy Unknown abdominal Verified 02/23/18 13:27 [Erythromycin Base] pain Home Medications: Ambulatory Orders Warfarin Na [Coumadin -] 1 mg PO DAILY@1800 1 Days tablet NS 11/10/16 Losartan Potassium [Cozaar -] 50 mg PO BID 12/16/16 Simvastatin 20 mg PO DAILY 12/16/16 Amlodipine Besylate 5 mg PO DAILY 03/15/17 Ascorbic Acid [Vitamin C] 500 mg PO DAILY 03/24/17 Cholecalciferol (Vitamin D3) [Vitamin D -] 400 unit PO DAILY 03/24/17 Methenamine Hippurate [Hiprex [Nf] -] 2 gm PO BID 03/24/17 Aspirin 81 mg PO DAILY 11/05/17 Dorzolamide HCl [Trusopt 2% -] 1 drop OD BID 11/05/17 Brimonidine Tartrate/Timolol [Combigan 0.2%-0.5% Eye Drops] 1 drop OU BID Acetaminophen [Tylenol .Regular Strength -] 650 mg PO Q4H PRN tablet 11/22/17 Pantoprazole Sodium [Protonix -] 40 mg PO DAILY #90 tablet.ec 11/22/17 Polyethylene Glycol 3350 [Miralax 119 gm Btl -] 17 gm PO BID bottle 11/22/17 Ursodiol [Actigal -] 300 mg PO BID #90 capsule 11/22/17 Atenolol [Tenormin -] 100 mg PO HS 02/23/18 Latanoprost 0.005% Eye Drops [Xalatan 0.005% Eye Drops -] 2.5 ml OU HS 02/23/18 Levothyroxine [Synthroid -] 50 mcg PO MoWeFr@0700 02/23/18 Sulfamethoxazole/Trimethoprim [Bactrim Ds Tablet] 1 each PO BID #14 tablet 02/23 Anemia: No Asthma: No Cancer: No Cardiac Disorders: Yes (PACEMAKER X 1) COPD: No CHF: No GI Disorders: Yes (GALLSTONES EVEN THOUGH SHE HAD GALLBLADDER REMOVED) Disorders: Yes (BLADDER INFECTION) HTN: Yes Hypercholesterolemia: Yes Thyroid Disease: Yes (HYPO) - Surgical History Abdominal Surgery: (SLIT IN GALLBLADDDER DUCT, HEMMORHOID REMOVED) Appendectomy: Yes Cardiac Surgery: Yes (PACEMAKER X2 one for bladder) Cholecystectomy: Yes Lung Surgery: No Neurologic Surgery: No - Immunization History Immunization Up to Date: Yes - Suicide/Smoking/Psychosocial Hx Smoking Status: No Smoking History: Never smoked Have you smoked in the past 12 months: No Number of Cigarettes Smoked Daily: 0 Hx Alcohol Use: No Drug/Substance Use Hx: No Substance Use Type: None Hx Substance Use Treatment: No Review of Systems - Review of Systems Comments:: 02/27/18 10:39 GENERAL/CONSTITUTIONAL: +Generalized weakness as described. No fever or chills. HEAD, EYES, EARS, NOSE AND THROAT: No change in vision. No ear pain or discharge. No sore throat. CARDIOVASCULAR: +Shortness of breath at rest. No chest pain RESPIRATORY: No cough, wheezing, or hemoptysis. GASTROINTESTINAL: No nausea, vomiting, diarrhea or constipation. GENITOURINARY: No dysuria, frequency, or change in urination. MUSCULOSKELETAL: No joint or muscle swelling or pain. No neck or back pain. SKIN: No rash NEUROLOGIC: No headache, vertigo, loss of consciousness, or change in strength/ sensation. ENDOCRINE: No increased thirst. No abnormal weight change HEMATOLOGIC/LYMPHATIC: No anemia, easy bleeding, or history of blood clots. ALLERGIC/IMMUNOLOGIC: No hives or skin allergy. *Physical Exam - Physical Exam Comments: 02/27/18 10:39 GENERAL: Awake, alert, and fully oriented, in no acute distress HEAD: No signs of trauma, normocephalic, atraumatic EYES: PERRLA, EOMI, sclera anicteric, conjunctiva clear ENT: Auricles normal inspection, hearing grossly normal, nares patent, oropharynx clear without exudates. Moist mucosa NECK: Normal ROM, supple, no lymphadenopathy, JVD, or masses LUNGS: +Diffuse wheezes appreciated. Otherwise speaks full sentences HEART: Tachycardic, regular rhythm, normal S1 and S2, no murmurs, rubs or gallops, peripheral pulses normal and equal bilaterally. ABDOMEN: Soft, nontender, normoactive bowel sounds. No guarding, no rebound. No masses EXTREMITIES: Normal inspection, Normal range of motion, no edema. No clubbing or cyanosis. NEUROLOGICAL: Cranial nerves II through XII grossly intact. Normal speech, normal gait, no focal sensorimotor deficits SKIN: Warm, Dry, normal turgor, no rashes or lesions noted. ED Treatment Course - LABORATORY CBC & Chemistry Diagram: 02/27/18 11:29 02/27/18 11:29 Medical Decision Making - Medical Decision Making 02/27/18 11:22 Ms. Leal is an 87 yo female w/ pmh as described who presents for evaluation of new onset weakness is the setting of recent UTI dx w/ ABX use. Given patient's complicated medical history, recent dx with infection, and increased pulse on presentation to 122, sepsis workup started. 02/27/18 12:00 Vanc / Zosyn started for suspected outpatient ABX failure w/ resultant sepsis. 02/27/18 12:22 Patient noted to have BNP>10,000; Lasix started. Patient's PCP paged for admission - Patient admitted to med/surg - tele for further evaluation. 02/27/18 12:54 Patient noted to have INR > 9; discussed with PCP who recommended vitamin K 5 units IM. Agree and will administer. *DC/Admit/Observation/Transfer Diagnosis at time of Disposition: CHF exacerbation Qualifiers: Heart failure type: unspecified Qualified Code(s): I50.9 - Heart failure, unspecified - Discharge Dispostion Admit: Yes - Referrals Referrals: Jacque Richardson [Primary Care Provider] - - Patient Instructions - Post Discharge Activity
[2018-02-27] MEDS ORDERED: SODIUM CHLORIDE 0.9% 1000 ML INFUS.BAG IV STA (11:08)
[2018-02-27 11:28] LABS: URINE APPEARANCE CLOUDY; URINE BILIRUBIN NEGATIVE (<2.0 mg/dL); URINE COLOR DKYELLOW; URINE GLUCOSE (UA) NEGATIVE (NEGATIVE); URINE KETONE NEGATIVE (NEGATIVE); URINE LEUK ESTERASE NEGATIVE (NEGATIVE); URINE NITRITE NEGATIVE (NEGATIVE); URINE UROBILINOGEN NEGATIVE mg/dL (0.2-1.0)
[2018-02-27] MEDS ORDERED: PIPERACIL/TAZOB 3.375 GM 3.375 GM/50 ML PREMIX IVPB ONE (11:28)
[2018-02-27] MEDS ORDERED: VANCOMYCIN 1,000 MG in DEXTROSE 5%-WATER - 250 ML IVPB ONE (11:28)
--- NOTE | 2018-02-27 11:29 | PDOC ---
Attending Attestation - Resident Resident Name: Casey Raphael - ED Attending Attestation I have performed the following: I have examined & evaluated the patient, The case was reviewed & discussed with the resident, I agree w/resident's findings & plan, Exceptions are as noted - HPI HPI: 02/27/18 11:29 87 year old female with pmh CBD stone s/p ERCP s/p stent placement, atrial fibrillation (on Coumadin), HTN, HLD, CAD s/p stents and pacemaker, hypothyroidism, diverticulitis, recurrent UTIs p/w generalized weakness. The patient was here 4 days ago. Was evaluated for abdominal pain. Had a CT abdomen and pelvis which showed ?colitis. Pt was discharged as UTI on bactrim. Since then, the patient continued to feel generally weak and in the last day or so, the patient started to endorse worsening generalized weakness, and shortness of breath. Denies fevers, chills. Denies chest pain. States continue to have decreased urine output and intermittent abdominal cramping. Because of SOB ( worse when lying down) and feeling generally weak, came into the ED for further evaluation. - Physicial Exam PE: 02/27/18 11:51 GENERAL: Awake, alert, and fully oriented, in no acute distress. HEAD: No signs of trauma EYES: PERRLA, EOMI, sclera anicteric, conjunctiva clear ENT: Auricles normal inspection, hearing grossly normal, nares patent NECK: Normal ROM, supple LUNGS: +Bibasilar crackles at the bases HEART: Irregularly irregular, normal S1 and S2 ABDOMEN: Soft, nontender, normoactive bowel sounds. No guarding, no rebound. No masses EXTREMITIES: Normal range of motion, no edema. No clubbing or cyanosis. No cords, erythema, or tenderness NEUROLOGICAL: Cranial nerves II through XII intact. Normal speech. SKIN: Warm, Dry, normal turgor, no rashes or lesions noted. - Medical Decision Making 02/27/18 11:52 Vital Signs Temp Pulse Resp BP Pulse Ox 98.4 F 100 H 18 133/107 99 02/27/18 11:31 02/27/18 11:31 02/27/18 11:31 02/27/18 11:31 02/27/18 11:31 It is possible that the patient may have failure of treatment with bactrim. However, CT scan from several days ago shows potential colitis. Will need to broaden out the antibiotic coverage. With SOB, r/o PNA, CHF, atelectasis. Pt also c/o worsening urine output. May be from hypovolemia or ANTONY. Either way, patient is having failure to thrive and failure of outpatient management, will need to be admitted to hospital. I agree with the residents plan for chest xray, labs, cultures, UA/UC and admission to the hospital. 02/27/18 12:37 CBC, BMP 02/27/18 11:29 02/27/18 11:29 CMP Sodium 130 mmol/L (136-145) L 02/27/18 11:29 Potassium 4.5 mmol/L (3.5-5.1) 02/27/18 11:29 Chloride 100 mmol/L (98-107) 02/27/18 11:29 Carbon Dioxide 20 mmol/L (21-32) L 02/27/18 11:29 Anion Gap 10 (8-16) 02/27/18 11:29 BUN 21 mg/dL (7-18) H 02/27/18 11:29 Creatinine 1.3 mg/dL (0.55-1.02) H 02/27/18 11:29 Creat Clearance w eGFR 38.66 (>60) 02/27/18 11:29 Random Glucose 130 mg/dL (74-106) H 02/27/18 11:29 Lactic Acid 4.0 mmol/L (0.0-2.0) H* 02/27/18 11:29 Calcium 8.7 mg/dL (8.5-10.1) 02/27/18 11:29 Total Bilirubin 0.5 mg/dL (0.2-1.0) D 02/27/18 11:29 AST 24 U/L (15-37) 02/27/18 11:29 ALT 24 U/L (12-78) 02/27/18 11:29 Alkaline Phosphatase 111 U/L (45-117) 02/27/18 11:29 Troponin I 0.02 ng/ml (0.00-0.05) 02/27/18 11:29 B-Natriuretic Peptide 08372.53 pg/ml (5-450) H 02/27/18 11:29 Total Protein 7.7 g/dl (6.4-8.2) 02/27/18 11:29 Albumin 3.1 g/dl (3.4-5.0) L 02/27/18 11:29 TSH 3.81 uIU/ml (0.358-3.74) H 02/27/18 11:29 Urine Test Results Urine Color Dkyellow 02/27/18 11:20 Urine Appearance Cloudy 02/27/18 11:20 Urine pH 5.0 (5.0-8.0) 02/27/18 11:20 Ur Specific [place] 1.024 (1.001-1.035) 02/27/18 11:20 Urine Protein 2+ (NEGATIVE) H 02/27/18 11:20 Urine Glucose (UA) Negative (NEGATIVE) 02/27/18 11:20 Urine Ketones Negative (NEGATIVE) 02/27/18 11:20 Urine Blood Negative (NEGATIVE) 02/27/18 11:20 Urine Nitrite Negative (NEGATIVE) 02/27/18 11:20 Urine Bilirubin Negative (<2.0 mg/dL) 02/27/18 11:20 Ur Leukocyte Esterase Negative (NEGATIVE) 02/27/18 11:20 Ur Epithelial Cells Rare /HPF (FEW) 02/27/18 11:20 Urine Mucus Rare 02/27/18 11:20 Labs reviewed. BNP 10k. Will give IV lasix (for CHF) Will treat patient as persistent UTI, possible colitis, and CHF. Heart Score/ECG Review #1 ECG reviewed & interpreted by me at: 10:50 02/27/18 11:23 atrial fibrillation 110, nonspecific ST and T wave abnormality, no JOSE, QTC 481 msec
[2018-02-27 11:32] LABS: URINE PROTEIN 2+ (NEGATIVE)
[2018-02-27 11:37] LABS: BASO % 0.4 % (0-2.0); EOS % 0.1 % (0-4.5); HEMATOCRIT 35.9 % (32.4-45.2); HEMOGLOBIN 12.1 GM/dL (10.7-15.3); LYMPH % 7.2 % (8-40); MCH 32.3 pg (25.7-33.7); MCHC 33.8 g/dl (32.0-36.0); MEAN CELL VOLUME 95.4 fl (80-96); MEAN PLT VOLUME 9.8 fl (7.5-11.1); MONO % 8.5 % (3.8-10.2); NEUT % 83.8 % (42.8-82.8); PLATELET COUNT 161 K/MM3 (134-434); RBC 3.76 M/mm3 (3.60-5.2); RDW 14.2 % (11.6-15.6); WHITE BLOOD COUNT 7.2 K/mm3 (4.0-10.0)
[2018-02-27] MEDS ORDERED: VANCOMYCIN 1 GRAM (PRE-DOCKED) 1,000 MG/250 ML BAG IVPB ONE (11:39)
[2018-02-27 11:40] LABS: VENOUS PC02 41.9 mmHg (38-52); VENOUS PH 7.27 (7.32-7.42); VENOUS PO2 21.8 mmHg (28-48)
[2018-02-27] MEDS: SODIUM CHLORIDE 500 ML IV STA ×2 (11:41→11:58)
[2018-02-27 11:43] LABS: EPI CELLS RARE /HPF (FEW); URINE MUCUS RARE
[2018-02-27 11:52] LABS: ACTIVATED PTT 55.4 SECONDS (26.9-34.4)
[2018-02-27 11:53] LABS: URINE HYALINE CAST 93 /lpf
[2018-02-27] MEDS ORDERED: SODIUM CHLORIDE 500 ML IV STA (11:57)
[2018-02-27 12:10] LABS: ALBUMIN 3.1 g/dl (3.4-5.0); ANION GAP 10 (8-16); BILIRUBIN,TOTAL 0.5 mg/dL (0.2-1.0); BLOOD UREA NITROGEN 21 mg/dL (7-18); CALCIUM 8.7 mg/dL (8.5-10.1); CHLORIDE 100 mmol/L (98-107); CO2 20 mmol/L (21-32); CREATININE 1.3 mg/dL (0.55-1.02); GLUCOSE,RANDOM 130 mg/dL (74-106); POTASSIUM 4.5 mmol/L (3.5-5.1); SGOT/AST 24 U/L (15-37); SGPT/ALT 24 U/L (12-78); SODIUM 130 mmol/L (136-145); TOT PROT 7.7 g/dl (6.4-8.2)
--- NOTE | 2018-02-27 12:11 | EKG ---
Test Reason : Blood Pressure : / mmHG Vent. Rate : 110 BPM Atrial Rate : 141 BPM P-R Int : 000 ms QRS Dur : 096 ms QT Int : 356 ms P-R-T Axes : 000 -13 -59 degrees QTc Int : 481 ms ATRIAL FIBRILLATION WITH RAPID VENTRICULAR RESPONSE NONSPECIFIC ST AND T WAVE ABNORMALITY ABNORMAL ECG WHEN COMPARED WITH ECG OF 23-FEB-2018 19:08, CRITERIA FOR SEPTAL INFARCT ARE NO LONGER PRESENT Confirmed by STEVE BENAVIDES MD ([id number]) on 02/27/2018 12:10:47 PM Referred By: Confirmed By:STEVE BENAVIDES MD
[2018-02-27] MEDS ORDERED: PIPERACILLIN/TAZOB 3.375 GM 3.375 GM/50 ML BAG IVPB ONE (12:14)
[2018-02-27] MEDS ORDERED: FUROSEMIDE 40 MG/4 ML INJECTABLE VIAL IVPUSH ONE (12:14)
[2018-02-27] MEDS ORDERED: PIPERACILLIN/TAZOB 3.375 GM 3.375 GM in DEXTROSE 5%-WATER - 50 ML IVPB ONE (12:15)
[2018-02-27 12:18] LABS: ALK PHOS 111 U/L (45-117)
[2018-02-27] MEDS ORDERED: FUROSEMIDE 40 MG/4 ML INJECTABLE VIAL ONE (12:22)
[2018-02-27 12:31] LABS: INR 9.13 (0.82-1.09)
[2018-02-27 12:32] LABS: PROTHROMBIN TIME (PATIENT) 103.2 SEC (9.98-11.88)
[2018-02-27] MEDS ORDERED: PHYTONADIONE 10 MG/1 ML AMP IM ONE (12:54)
--- NOTE | 2018-02-27 12:59 | CON.CARD ---
Consult Consult Specialty:: Cardiology Referred by:: Jacque Richardson MD Reason for Consultation:: Dyspnea - History of Present Illness Chief Complaint: Dyspnea History of Present Illness: 87-year-old female history of 2 vessel CAD, diastolic dysfunction, moderate- severe aortic stenosis, hypertension, cardioinhibitory/carotid hypersensitivity s/p pacemaker, hyperlipidemia, paroxysmal A.fib on Coumadin [id number]=5, hypothyroidisms/p appy, cholecystectomy and hysterectomy, diverticulosis/itis, GERD, CBD s/p ERCP, stent placement and stone retrieval, bladder stimulator for urinary frequeny presented with worsening generalized weakness, shortness of breath, orthopnea, inadvertent 4 lbs weight gain, denies chest pain, near or true syncope, palpitations, PND, medication or diet noncompliance or LE edema. Prescribed course of Bactrim 02/23. - History Source History Provided By: Patient Limitations to Obtaining History: No Limitations - Past Medical History Cardio/Vascular: Yes: AFIB, Aortic Stenosis (0.7cm), HTN, Hyperlipdemia, Mitral Insufficiency, Pulmonary Hypertension, Other (Episodes of vaso-depressive syncope, has PPM) Gastrointestinal: Yes: Diverticulitis (02/21), Diverticulosis, Hemorrhoids, Other (SBO in 10/26, ischemic colitis 10/26) Hepatobiliary: Yes: Cholelithiasis (s/pcholecsytectomy), Choledocholithiasis ( ERCP/sphincerotomy for CBD stone) Renal/: Yes: Neurogenic Bladder (had bladder stimulator placed) Infectious Disease: Yes: Herpes Zoster (2008) Musculoskeletal: Yes: Chronic low back pain, Osteoarthritis, Other (Spinal stenosis and C spine fracture.) Endocrine: Yes: Hypothyroidism Additional Medical History: Fibrocystic breast disease. Macular degeneration. Herpes Zoster 2008. Ischemic colitis and SBO 2012. Diverticulitis 02/21. C spine fracture. Spinal stenosis. 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 History of Recent Travel: No Home Medications - Allergies Allergies/Adverse Reactions: Allergies Allergy/AdvReac Type Severity Reaction Status Date / Time erythromycin base Allergy Unknown abdominal Verified 02/23/18 13:27 [Erythromycin Base] pain - Home Medications Home Medications: Ambulatory Orders Warfarin Na [Coumadin -] 1 mg PO DAILY@1800 1 Days tablet NS 11/10/16 Losartan Potassium [Cozaar -] 50 mg PO BID 12/16/16 Simvastatin 20 mg PO DAILY 12/16/16 Amlodipine Besylate 5 mg PO DAILY 03/15/17 Ascorbic Acid [Vitamin C] 500 mg PO DAILY 03/24/17 Cholecalciferol (Vitamin D3) [Vitamin D -] 400 unit PO DAILY 03/24/17 Methenamine Hippurate [Hiprex [Nf] -] 2 gm PO BID 03/24/17 Aspirin 81 mg PO DAILY 11/05/17 Dorzolamide HCl [Trusopt 2% -] 1 drop OD BID 11/05/17 Brimonidine Tartrate/Timolol [Combigan 0.2%-0.5% Eye Drops] 1 drop OU BID Acetaminophen [Tylenol .Regular Strength -] 650 mg PO Q4H PRN tablet 11/22/17 Pantoprazole Sodium [Protonix -] 40 mg PO DAILY #90 tablet.ec 11/22/17 Polyethylene Glycol 3350 [Miralax 119 gm Btl -] 17 gm PO BID bottle 11/22/17 Ursodiol [Actigal -] 300 mg PO BID #90 capsule 11/22/17 Atenolol [Tenormin -] 100 mg PO HS 02/23/18 Latanoprost 0.005% Eye Drops [Xalatan 0.005% Eye Drops -] 2.5 ml OU HS 02/23/18 Levothyroxine [Synthroid -] 50 mcg PO MoWeFr@0700 02/23/18 Sulfamethoxazole/Trimethoprim [Bactrim Ds Tablet] 1 each PO BID #14 tablet 02/23 Family Disease History - Family Disease History Family Disease History: Diabetes: Brother (colon adenoma), Heart Disease: Father ( 76, H/O alcohol), Mother (,CKD), Brother, [place]: Son (brainneoplasm), Other: Father, Brother Review of Systems - Review of Systems Cardiovascular: reports: Shortness of Breath Respiratory: reports: Orthopnea Vital Signs: Vital Signs Temperature 98.4 F 02/27/18 11:31 Pulse Rate 100 H 02/27/18 11:31 Respiratory Rate 18 02/27/18 11:31 Blood Pressure 133/107 02/27/18 11:31 O2 Sat by Pulse Oximetry (%) 99 02/27/18 11:31 Constitutional: Yes: No Distress, Calm, Thin Neck: Yes: Supple Respiratory: Yes: Regular, CTA Bilaterally, On Nasal O2 Gastrointestinal: Yes: Normal Bowel Sounds, Soft Cardiovascular: Yes: Tachycardia, Pulse Irregular JVD: Yes Carotid Bruit: No Heart Sounds: Yes: S1, S2 Murmur: Yes: Systolic Murmur, Grade 2 Edema: Yes Edema: LLE: Trace, RLE: Trace - Other Data Labs, Other Data: CBC, BMP 02/27/18 11:29 02/27/18 11:29 INR, PTT INR 9.13 (0.82-1.09) H* D 02/27/18 11:29 Troponin, BNP 02/27/18 02/27/18 11:29 11:29 Troponin I 0.02 B-Natriuretic Peptide 32372.53 H Troponin, BNP 02/27/18 02/27/18 11:29 11:29 Troponin I 0.02 B-Natriuretic Peptide 72226.53 H Afib @ [address]-T changes Ejection Fraction %: LVEF > or = 40 % Imaging - Results Chest X-ray: Report Reviewed (CHF with left effusion) Problem List - Problems (1) CHF exacerbation Code(s): I50.9 - HEART FAILURE, UNSPECIFIED Qualifiers: Heart failure type: diastolic Qualified Code(s): I50.33 - Acute on chronic diastolic (congestive) heart failure (2) Atrial fibrillation Code(s): I48.91 - UNSPECIFIED ATRIAL FIBRILLATION Qualifiers: Atrial fibrillation type: persistent Qualified Code(s): I48.1 - Persistent atrial fibrillation (3) Coronary artery disease Code(s): I25.10 - ATHSCL HEART DISEASE OF [place] CORONARY ARTERY W/O ANG PCTRS Qualifiers: Coronary Disease-Associated Artery/Lesion type: [place] artery [place] vs. transplanted heart: [place] heart Associated angina: without angina Qualified Code(s): I25.10 - Atherosclerotic heart disease of [place] coronary artery without angina pectoris (4) History of pacemaker Code(s): Z95.0 - PRESENCE OF CARDIAC PACEMAKER (5) Hyperlipidemia Code(s): E78.5 - HYPERLIPIDEMIA, UNSPECIFIED Qualifiers: Hyperlipidemia type: pure hypercholesterolemia Qualified Code(s): E78.00 - Pure hypercholesterolemia, unspecified (6) Hypertension Code(s): I10 - ESSENTIAL (PRIMARY) HYPERTENSION Qualifiers: Hypertension type: essential hypertension Qualified Code(s): I10 - Essential (primary) hypertension (7) Hypothyroidism Code(s): E03.9 - HYPOTHYROIDISM, UNSPECIFIED Qualifiers: Hypothyroidism type: unspecified Qualified Code(s): E03.9 - Hypothyroidism , unspecified (8) Moderate aortic valve stenosis Code(s): I35.0 - NONRHEUMATIC AORTIC (VALVE) STENOSIS (9) Neurocardiogenic syncope Code(s): R55 - SYNCOPE AND COLLAPSE (10) Pacemaker Code(s): Z95.0 - PRESENCE OF CARDIAC PACEMAKER (11) Paroxysmal atrial fibrillation Code(s): I48.0 - PAROXYSMAL ATRIAL FIBRILLATION (12) Supratherapeutic INR Code(s): R79.1 - ABNORMAL COAGULATION PROFILE Assessment/Plan 01/06/2018 Echo: Normal LV size with mild LVHm normal LV fxn, abnl LV compliance , moderate-severe aortic valve stenosis with mild AR MG 32 mmHg, RUBY 0.7 cm^2, mildly dilated aortic root, moderate MR, TR, mild ND, RVSP 40 mmHg 1. Acute on chronic diastolic failure with hyponatremia and underlying 2. Moderate-severe aortic valve stenosis 3. Paroxysmal atrial fibrillation currently in sinus rhythm with supratherapeutic INR 4. History of cardio-inhibitory syncope/carotid hypersensitivity post rate drop PPM implant 5. HTN/HCVD 6. Hyperlipidemia 7. Hypothyroidism 8. GERD 9. ANTONY due to hemodynamic effects 10. 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 Retained stones post cholecystectomy with biliary duct dilatation post therapeutic ERCP/sphincterotomy and biliary stent 12. CAD angina pectoris, stable PLAN: 1. IV diuresis with monitor diuretic response,electrolytes and renal function 2. Continue Losartan 50 bid, Lipitor 10 qhs, Toprol XL 100 qd and Norvasc 5 qd 3. Hold Coumadin for supratherapeutic INR referable to possible hepatic congestion, d/c ASA as CAD is stable 4. Discussion on TAVR as outpatient with Dr. Willoughby 5. Thank you for consultative opportunity
[2018-02-27] MEDS ORDERED: PHYTONADIONE 10 MG/1 ML AMP ONE (13:28)
[2018-02-27] MEDS: FUROSEMIDE 40 MG/4 ML INJECTABLE VIAL IVPUSH SCH (15:24)
--- NOTE | 2018-02-27 20:13 | HP ---
Admitting History and Physical - Primary Care Physician PCP: Jacque Richardson S - Admission Chief Complaint: weakness, abdominal pain History of Present Illness: 87 year old female with pmh CBD stone s/p ERCP s/p stent placement, atrial fibrillation (on Coumadin), HTN, HLD, CAD s/p stents and pacemaker, hypothyroidism, diverticulitis, recurrent UTIs p/w generalized weakness. The patient was in ER 4 days ago. Was evaluated for abdominal pain. Had a CT abdomen and pelvis which showed possible colitis. Pt was discharged as UTI on bactrim. Since then, the patient continued to feel generally weak and in the last day or so, the patient started to endorse worsening generalized weakness, and shortness of breath. Also said she was uanble to urinate, felt like she was retaining her urine, Lea placed in ER drained clean urine. Denies fevers, chills. Denies chest pain. States continue to have decreased urine output and intermittent abdominal cramping. Because of SOB (worse when lying down) and feeling generally weak, came into the ED for further evaluation. accompanied by daughter, I d/w pt and her daughter at bedside in ER History Source: Patient, Family Member, Medical Record Limitations to Obtaining History: No Limitations - Past Medical History Cardiovascular: Yes: AFIB, Aortic Stenosis (0.7cm), HTN, Hyperlipdemia, Mitral Insufficiency, Pulmonary Hypertension, Other (Episodes of vaso-depressive syncope, has PPM) Gastrointestinal: Yes: Diverticulitis (02/21), Diverticulosis, Hemorrhoids, Other (SBO in 10/26, ischemic colitis 10/26) Hepatobiliary: Yes: Cholelithiasis (s/pcholecsytectomy), Choledocholithiasis ( ERCP/sphincerotomy for CBD stone) Renal/: Yes: Neurogenic Bladder (had bladder stimulator placed) Heme/Onc: Yes: Other (Had bone marrow with Dr. Malik, ? 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 ) Infectious Disease: Yes: Herpes Zoster (2008) Musculoskeletal: Yes: Chronic low back pain, Osteoarthritis, Other (Spinal stenosis and C spine fracture.) Endocrine: Yes: Hypothyroidism - Past Surgical History Past Surgical History: Yes: Appendectomy, Cataract Removal, Cholecystectomy, Colonoscopy, Hysterectomy, Permanent Pacemaker, Tonsillectomy, Upper Endoscopy - Smoking History Smoking history: Never smoked Have you smoked in the past 12 months: No Aproximately how many cigarettes per day: 0 - Alcohol/Substance Use Hx Alcohol Use: No History of Substance Use: reports: None - Social History Usual Living Arrangement: Yes: Alone ADL: Independent 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 History of Recent Travel: No Home Medications - Allergies Allergies/Adverse Reactions: Allergies Allergy/AdvReac Type Severity Reaction Status Date / Time erythromycin base Allergy Unknown abdominal Verified 02/23/18 13:27 [Erythromycin Base] pain - Home Medications Home Medications: Ambulatory Orders Warfarin Na [Coumadin -] 1 mg PO DAILY@1800 1 Days tablet NS 11/10/16 Losartan Potassium [Cozaar -] 50 mg PO BID 12/16/16 Simvastatin 20 mg PO DAILY 12/16/16 Amlodipine Besylate 5 mg PO DAILY 03/15/17 Ascorbic Acid [Vitamin C] 500 mg PO DAILY 03/24/17 Cholecalciferol (Vitamin D3) [Vitamin D -] 400 unit PO DAILY 03/24/17 Methenamine Hippurate [Hiprex [Nf] -] 2 gm PO BID 03/24/17 Aspirin 81 mg PO DAILY 11/05/17 Dorzolamide HCl [Trusopt 2% -] 1 drop OD BID 11/05/17 Brimonidine Tartrate/Timolol [Combigan 0.2%-0.5% Eye Drops] 1 drop OU BID Acetaminophen [Tylenol .Regular Strength -] 650 mg PO Q4H PRN tablet 11/22/17 Pantoprazole Sodium [Protonix -] 40 mg PO DAILY #90 tablet.ec 11/22/17 Polyethylene Glycol 3350 [Miralax 119 gm Btl -] 17 gm PO BID bottle 11/22/17 Ursodiol [Actigal -] 300 mg PO BID #90 capsule 11/22/17 Atenolol [Tenormin -] 100 mg PO HS 02/23/18 Latanoprost 0.005% Eye Drops [Xalatan 0.005% Eye Drops -] 2.5 ml OU HS 02/23/18 Levothyroxine [Synthroid -] 50 mcg PO MoWeFr@0700 02/23/18 Sulfamethoxazole/Trimethoprim [Bactrim Ds Tablet] 1 each PO BID #14 tablet 02/23 Family Disease History - Family Disease History Family Disease History: Diabetes: Brother (colon adenoma), Heart Disease: Father ( 76, H/O alcohol), Mother (,CKD), Brother, [place]: Son (brainneoplasm), Other: Father, Brother Review of Systems - Review of Systems Constitutional: reports: Loss of Appetite. denies: Chills, Fever, Lethargy Eyes: denies: Blind Spots, Double Vision HENT: denies: Difficult Swallowing, Epistaxis Neck: denies: Stiffness, Tenderness Cardiovascular: reports: Palpitations, Shortness of Breath. denies: Chest Pain Respiratory: reports: SOB, SOB on Exertion. denies: Cough, Wheezing Gastrointestinal: reports: Abdominal Pain. denies: Bloating, Constipation, Diarrhea, Rectal Bleeding, Vomiting Genitourinary: denies: Dysuria, Flank Pain Musculoskeletal: denies: Back Pain, Joint Pain Integumentary: denies: Rash, Wound Neurological: reports: Unsteady Gait, Weakness (general). denies: Change in LOC , Change in Speech, Confusion, Dizziness Endocrine: denies: Excessive Sweating, Flushing Hematology/Lymphatic: denies: Easily Bruised, Excessive Bleeding Psychiatric: denies: Altered Sleep Pattern, Anxiety, Depression Physical Examination Vital Signs: Vital Signs Temperature 98.4 F 02/27/18 11:31 Pulse Rate 117 H 02/27/18 17:16 Respiratory Rate 18 02/27/18 17:16 Blood Pressure 104/75 02/27/18 17:16 O2 Sat by Pulse Oximetry (%) 96 02/27/18 17:16 Constitutional: Yes: No Distress, Calm Eyes: Yes: Conjunctiva Clear HENT: Yes: Atraumatic Neck: Yes: Supple. No: Tenderness Cardiovascular: Yes: Tachycardia. No: Regular Rate and Rhythm Respiratory: Yes: Diminished Gastrointestinal: Yes: Soft. No: Tenderness Renal/: Yes: Lea Present. No: Bladder Distention, CVA Tenderness - Left, CVA Tenderness - Right, Hematuria Musculoskeletal: No: Back Pain, Muscle Weakness Extremities: No: Amputation, Calf Tenderness, Cold, Cool, Cyanosis Edema: No Integumentary: No: Rash, Venous Stasis Changes Neurological: Yes: WNL, Alert, Oriented ...Motor Strength: WNL Psychiatric: Yes: WNL, Alert, Oriented. No: Agitated, Suicidal Ideation Labs: CBC, BMP 02/27/18 11:29 02/27/18 11:29 Imaging - Results Chest X-ray: Report Reviewed Cat Scan: Report Reviewed Other: Report Reviewed Assessment/Plan 87 year old female with pmh CBD stone s/p ERCP s/p stent placement, atrial fibrillation (on Coumadin), Ao Stenosis, HTN, HLD, CAD s/p stents and pacemaker , hypothyroidism, diverticulitis, recurrent UTIs p/w generalized weakness s/p UTI on bactrim. Admitted with general weakness and shortness of breath, urinary retention. Coumadin toxicity INR 9 received 5 mg sq vit K in ER Fluid overloaded, RAFib admit to telemetry cardiology, GI eval IV lasix HR control Lea to drain urine; pt has a pacemaker inserted by f/u labs and cultures falls PFX prognosis guarded d/w pt and daughter d/w ER staff t time 75 min
[2018-02-27] MEDS ORDERED: ATORVASTATIN CA 20 MG TABLET (FP) PO SCH (22:00)
[2018-02-27] MEDS ORDERED: PATIENT'S OWN MEDICATION (NON-FORMULARY) (Brimonidine Tartrate/Timolol [Combigan 0.2%-0.5% OU SCH (22:00)
[2018-02-27] MEDS: ATORVASTATIN CA 10 MG TABLET (FP) PO SCH (23:07)
[2018-02-27] MEDS: URSODIOL 300 MG CAPSULE PO SCH (23:07)
[2018-02-27] MEDS: POLYETHYLENE GLYCOL 3350 119 GM BTL PO SCH (23:09)
[2018-02-27] MEDS: BRIMONIDINE TARTRATE 0.2% OPHTHALMIC 5 ML BOTTLE OU SCH (23:17)
[2018-02-27] MEDS: TIMOLOL 0.5% OPHTHALMIC SOL 5 ML BOTTLE OU SCH (23:19)
[2018-02-27] MEDS: DORZOLAMIDE 2% HCL OPHTHALMIC SOLUTION 10 ML BOTTLE OD SCH (23:22)
[2018-02-27] MEDS: LATANOPROST 0.005% OPHTH SOLN 2.5ML BOTTLE OU SCH (23:24)
[2018-02-28] MEDS ORDERED: PT OWN MED DRAWER 7, Y5N ONE (00:12)
[2018-02-28] MEDS ORDERED: PIPERACILLIN/TAZOB 3.375 GM 3.375 GM in DEXTROSE 5%-WATER - 50 ML IVPB SCH (02:00)
[2018-02-28] MEDS ORDERED: PIPERACILLIN/TAZOBACTAM 3.375 GM VIAL IVPB ONE (02:00)
[2018-02-28] MEDS ORDERED: PIPERACILLIN/TAZOB 3.375 GM 3.375 GM in DEXTROSE 5%-WATER - 50 ML IVPB ONE (02:00)
[2018-02-28] MEDS ORDERED: DEXTROSE 5%-WATER - 50 ML IVPB ONE (02:01)
[2018-02-28] MEDS: LEVOTHYROXINE NA 75 MCG TABLET (FP) PO SCH (06:06)
[2018-02-28] MEDS: FUROSEMIDE 40 MG/4 ML INJECTABLE VIAL IVPUSH SCH ×2 (06:07→13:27)
--- NOTE | 2018-02-28 06:27 | PN ---
Progress Note, Physician Chief Complaint: events and tests noted and d/w pt and family consults noted GI cardiology and heme called INR 1.1 no bleed on IV lasix no CP/SOB no abdominal pain; feeling very weak generally Lea draining clear urine - Current Medication List Current Medications: Active Medications Acetaminophen (Tylenol -) 650 mg PO Q4H PRN PRN Reason: FEVER Atorvastatin Calcium (Lipitor -) 10 mg PO HS [facility] Last Admin: 02/27/18 23:07 Dose: 10 mg Brimonidine Tartrate (Alphagan 0.2% -) 1 drop OU BID [facility] Last Admin: 02/27/18 23:17 Dose: 1 drop Cholecalciferol (Vitamin D3 -) 400 unit PO DAILY [facility] Dorzolamide HCl (Trusopt 2%) 1 drop OD BID [facility] Last Admin: 02/27/18 23:22 Dose: 1 drop Furosemide (Lasix Injection -) 40 mg IVPUSH BID@0600,1400 [facility] Last Admin: 02/28/18 06:07 Dose: 40 mg Piperacillin Sod/Tazobactam (Sod 3.375 gm/ Dextrose) 50 mls @ 100 mls/hr IVPB Q8H-IV [facility] PRN Reason: Protocol Latanoprost (Xalatan 0.005% Eye Drops -) 1 drop OU [facility] Last Admin: 02/27/18 23:24 Dose: 1 drop Levothyroxine Sodium (Synthroid -) 75 mcg PO DAILY@0700 [facility] Last Admin: 02/28/18 06:06 Dose: 75 mcg Losartan Potassium (Cozaar -) 50 mg PO DAILY [facility] Metoprolol Succinate (Toprol Xl -) 100 mg PO DAILY [facility] Last Admin: 02/27/18 15:27 Dose: 100 mg Pantoprazole Sodium (Protonix -) 40 mg PO DAILY [facility] Polyethylene Glycol (Miralax (For Daily Use) -) 17 gm PO BID [facility] Last Admin: 02/27/18 23:09 Dose: 17 gm Timolol Maleate (Timoptic 0.5%) 1 drop OU BID [facility] Last Admin: 02/27/18 23:19 Dose: 1 drop Ursodiol (Actigal -) 300 mg PO BID [facility] Last Admin: 02/27/18 23:07 Dose: 300 mg - Objective Vital Signs: Vital Signs Temperature 98.6 F 02/28/18 02:52 Pulse Rate 109 H 02/28/18 02:52 Respiratory Rate 20 02/28/18 02:52 Blood Pressure 100/96 02/28/18 02:52 O2 Sat by Pulse Oximetry (%) 95 02/27/18 23:05 Constitutional: Yes: No Distress, Calm Eyes: Yes: Conjunctiva Clear HENT: Yes: Atraumatic Neck: Yes: Supple Cardiovascular: No: Regular Rate and Rhythm Respiratory: Yes: Diminished Gastrointestinal: Yes: Soft. No: Tenderness Genitourinary: Yes: Lea Present. No: CVA Tenderness - Left, CVA Tenderness - Right, Hematuria Musculoskeletal: No: Joint Stiffness, Joint Swelling Extremities: No: Cold, Cool Edema: No Integumentary: No: Rash, Venous Stasis Changes Neurological: Yes: WNL, Alert, Oriented ...Motor Strength: WNL Psychiatric: Yes: WNL, Alert, Oriented. No: Agitated, Suicidal Ideation Labs: CBC, BMP 02/27/18 11:29 02/27/18 11:29 INR, PTT INR 9.13 (0.82-1.09) H* D 02/27/18 11:29 - ....Imaging Other: Report Reviewed Assessment/Plan 87 year old female with pmh CBD stone s/p ERCP s/p stent placement, atrial fibrillation (on Coumadin), Ao Stenosis, HTN, HLD, CAD s/p stents and pacemaker , hypothyroidism, diverticulitis, recurrent UTIs p/w generalized weakness s/p UTI on bactrim. Admitted with general weakness and shortness of breath, urinary retention. Coumadin toxicity INR 9 received 5 mg sq vit K in ER Fluid overloaded, RAFib admitted to telemetry cardiology, GI heme f/u will d/w cardiology further Ao Stenosis eval and treatment GI eval for biliary stent seen by miguel for h/o MGUS and coumadin toxicity IV lasix HR control Lea to drain urine; pt has a pacemaker inserted by [facility] f/u labs and cultures falls PFX prognosis guarded d/w pt and daughter d/w staff t time 40 min
[2018-02-28 06:43] VITALS: BMI 25.2
[2018-02-28 06:54] LABS: BASO % 0.5 % (0-2.0); EOS % 0.7 % (0-4.5); HEMATOCRIT 32.3 % (32.4-45.2); HEMOGLOBIN 11.2 GM/dL (10.7-15.3); LYMPH % 12.4 % (8-40); MCH 32.7 pg (25.7-33.7); MCHC 34.5 g/dl (32.0-36.0); MEAN CELL VOLUME 94.6 fl (80-96); MEAN PLT VOLUME 10.3 fl (7.5-11.1); MONO % 14.3 % (3.8-10.2); NEUT % 72.1 % (42.8-82.8); PLATELET COUNT 137 K/MM3 (134-434); RBC 3.42 M/mm3 (3.60-5.2); RDW 14.5 % (11.6-15.6); WHITE BLOOD COUNT 6.4 K/mm3 (4.0-10.0)
[2018-02-28 07:05] LABS: INR 2.82 (0.82-1.09); PROTHROMBIN TIME (PATIENT) 31.9 SEC (9.98-11.88)
[2018-02-28 07:20] LABS: ALBUMIN 2.9 g/dl (3.4-5.0); ANION GAP 13 (8-16); BLOOD UREA NITROGEN 20 mg/dL (7-18); CALCIUM 8.4 mg/dL (8.5-10.1); CHLORIDE 97 mmol/L (98-107); CO2 21 mmol/L (21-32); GLUCOSE,RANDOM 88 mg/dL (74-106); POTASSIUM 4.1 mmol/L (3.5-5.1); SODIUM 131 mmol/L (136-145)
[2018-02-28 07:23] LABS: ALK PHOS 94 U/L (45-117); BILIRUBIN,TOTAL 0.8 mg/dL (0.2-1.0); SGOT/AST 26 U/L (15-37); SGPT/ALT 21 U/L (12-78)
[2018-02-28] MEDS: URSODIOL 300 MG CAPSULE PO SCH (09:09)
[2018-02-28] MEDS: LOSARTAN POTASSIUM 50 MG TABLET (FP) PO SCH (09:09)
[2018-02-28] MEDS: PANTOPRAZOLE 40 MG TABLET (FP) PO SCH (09:09)
[2018-02-28] MEDS: BRIMONIDINE TARTRATE 0.2% OPHTHALMIC 5 ML BOTTLE OU SCH ×2 (09:09→21:17)
[2018-02-28] MEDS: TIMOLOL 0.5% OPHTHALMIC SOL 5 ML BOTTLE OU SCH ×2 (09:09→21:17)
[2018-02-28] MEDS: DORZOLAMIDE 2% HCL OPHTHALMIC SOLUTION 10 ML BOTTLE OD SCH ×2 (09:10→21:17)
[2018-02-28] MEDS: POLYETHYLENE GLYCOL 3350 119 GM BTL PO SCH ×2 (09:11→21:16)
--- NOTE | 2018-02-28 09:43 | PN ---
Progress Note (short form) - Note Progress Note: Chief Complaint: Events noted, notes reviewed, persistent dyspnea, denies any chest pain, continues to report lower abdominal discomfort, tachycardia noted probably PAF with intermittent pacing History of Present Illness: Seen and examined on telemetry. Events noted, notes reviewed, persistent dyspnea , denies any chest pain, continues to report lower abdominal discomfort, tachycardia noted probably PAF with intermittent pacing Supra-therapeutic INR noted, Hepatic congestion vs. intrinsic liver disease Echocardiography 01/06/2018 revealed normal LV size with mild LVH normal LV function, abnormal LV compliance, moderate-severe aortic valve stenosis with MG 32 mmHg, RUBY 0.7 cm^2, mild AR, mildly dilated aortic root, moderate MR, TR, mild KS, RVSP 40 mmHg Medications: Current Medications Acetaminophen (Tylenol -) 650 mg PO Q4H PRN PRN Reason: FEVER Atorvastatin Calcium (Lipitor -) 10 mg PO HS [facility] Last Admin: 02/27/18 23:07 Dose: 10 mg Brimonidine Tartrate (Alphagan 0.2% -) 1 drop OU BID [facility] Last Admin: 02/28/18 09:09 Dose: 1 drop Cholecalciferol (Vitamin D3 -) 400 unit PO DAILY [facility] Dorzolamide HCl (Trusopt 2%) 1 drop OD BID [facility] Last Admin: 02/28/18 09:10 Dose: 1 drop Furosemide (Lasix Injection -) 40 mg IVPUSH BID@0600,1400 [facility] Last Admin: 02/28/18 06:07 Dose: 40 mg Piperacillin Sod/Tazobactam (Sod 3.375 gm/ Dextrose) 50 mls @ 100 mls/hr IVPB Q8H-IV [facility] PRN Reason: Protocol Latanoprost (Xalatan 0.005% Eye Drops -) 1 drop OU HS [facility] Last Admin: 02/27/18 23:24 Dose: 1 drop Levothyroxine Sodium (Synthroid -) 75 mcg PO DAILY@0700 [facility] Last Admin: 02/28/18 06:06 Dose: 75 mcg Losartan Potassium (Cozaar -) 50 mg PO DAILY [facility] Last Admin: 02/28/18 09:09 Dose: 50 mg Metoprolol Succinate (Toprol Xl -) 100 mg PO DAILY [facility] Last Admin: 02/28/18 09:09 Dose: 100 mg Pantoprazole Sodium (Protonix -) 40 mg PO DAILY [facility] Last Admin: 02/28/18 09:09 Dose: 40 mg Polyethylene Glycol (Miralax (For Daily Use) -) 17 gm PO BID [facility] Last Admin: 02/28/18 09:11 Dose: Not Given Timolol Maleate (Timoptic 0.5%) 1 drop OU BID [facility] Last Admin: 02/28/18 09:09 Dose: 1 drop Ursodiol (Actigal -) 300 mg PO BID [facility] Last Admin: 02/28/18 09:09 Dose: 300 mg Review of Systems - Review of Systems Constitutional: no symptoms reported Respiratory: Denies: Cough or Sputum Production Cardiovascular: As noted above Gastrointestinal: denies Nausea, Vomiting, Diarrhea, Constipation but reports Lower Abdominal Pain Genitourinary: No symptoms reported Musculoskeletal: Degenerative Joint Disease Endocrine: No symptoms reported Vital Signs: Last Vital Signs Temp Pulse Resp BP Pulse Ox 97.4 F L 111 H 20 107/66 95 02/28/18 06:00 02/28/18 06:00 02/28/18 06:00 02/28/18 06:00 02/27/18 23:05 Intake & Output 02/25/18 02/26/18 02/27/18 02/28/18 23:59 23:59 23:59 23:59 Output Total 200 600 Balance -200 -600 Weight 152 lb Constitutional: No Distress, Calm Neck: Supple Negative JVD Respiratory: diminished Breath Sounds at the Bases Bilaterally Cardiovascular: S1 S2 Regular Rate Rhythm Grade 2-3/6 [facility]IZABETH Gastrointestinal: Soft Benign Normal Bowel Sounds Ext: No Edema Labs: CBC, BMP 02/28/18 06:30 02/28/18 06:30 Hepatic Panel Total Bilirubin 0.8 mg/dL (0.2-1.0) D 02/28/18 06:30 AST 26 U/L (15-37) 02/28/18 06:30 ALT 21 U/L (12-78) 02/28/18 06:30 Alkaline Phosphatase 94 U/L (45-117) 02/28/18 06:30 Albumin 2.9 g/dl (3.4-5.0) L 02/28/18 06:30 INR, PTT INR 2.82 (0.82-1.09) H D 02/28/18 06:30 Assessment/Plan ASSESSMENT: 1. Acute on chronic class II NYHA classification LV failure related to diastolic LV dysfunction, resolving 2. Moderate-severe aortic valve stenosis 3. Paroxysmal atrial fibrillation recurrent arrhythmia with therapeutic INR 4. CAD angina pectoris, stable 5. 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 HTN/HCVD 7. Hyperlipidemia 8. Hypothyroidism 9. CKD with acute renal insufficiency 10. Abdominal pain, resolving 11. Retained stones post cholecystectomy with biliary duct dilatation post therapeutic ERCP/sphincterotomy and biliary stent PLAN: 1. Antibiotic as per the primary team 2. Continue Losartan with close monitoring of renal function 3. Continue Toprol XL 4. Continue Norvasc 5. Continue Lipitor 6. Continue Coumadin with caution and close monitoring of CBC and INR, maintain INR 2-3 7. Pacemaker interrogation 8. Patient has interstitial lung disease (abnormal PFT's) in view of which Amiodarone therapy is not an option, may consider Betapace once euvolemic or Tikosyn with caution for both therapies Murray Willoughby M.D.
[2018-02-28] MEDS: CHOLECALCIFEROL (VITAMIN D3) 400 UNIT TABLET (FP) PO SCH (11:35)
--- NOTE | 2018-02-28 13:03 | CONSULT ---
Consult Consult Specialty:: Hematology - History of Present Illness History of Present Illness: 87-year-old female history of 2 vessel CAD, diastolic dysfunction, moderate- severe aortic stenosis, hypertension, paroxysmal A.fib on Coumadin [id number] , hypothyroidisms/p appy, cholecystectomy and hysterectomy, diverticulosis/itis , GERD, CBD s/p ERCP, stent placement and stone retrieval, bladder stimulator for urinary frequeny presented with worsening generalized weakness, shortness of breath, orthopnea. Patient also has MGUS. follows with us in the office. Now had supratherapuetic INR. Hematology consulted for the above. Patient seen and examined. pt c/o bloating, feeling "gassy". otherwise she has no specific complains. - History Source History Provided By: Patient, Medical Record - Past Medical History Cardio/Vascular: Yes: AFIB, Aortic Stenosis (0.7cm), HTN, Hyperlipdemia, Mitral Insufficiency, Pulmonary Hypertension, Other (Episodes of vaso-depressive syncope, has PPM) Gastrointestinal: Yes: Diverticulitis (02/21), Diverticulosis, Hemorrhoids, Other (SBO in 10/26, ischemic colitis 10/26) Hepatobiliary: Yes: Cholelithiasis (s/pcholecsytectomy), Choledocholithiasis ( ERCP/sphincerotomy for CBD stone) Renal/: Yes: Neurogenic Bladder (had bladder stimulator placed) Infectious Disease: Yes: Herpes Zoster (2008) Musculoskeletal: Yes: Chronic low back pain, Osteoarthritis, Other (Spinal stenosis and C spine fracture.) Endocrine: Yes: Hypothyroidism Additional Medical History: Fibrocystic breast disease. Macular degeneration. Herpes Zoster 2008. Ischemic colitis and SBO 2012. Diverticulitis 02/21. C spine fracture. Spinal stenosis. 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 Travel: No Home Medications - Allergies Allergies/Adverse Reactions: Allergies Allergy/AdvReac Type Severity Reaction Status Date / Time erythromycin base Allergy Unknown abdominal Verified 02/23/18 13:27 [Erythromycin Base] pain - Home Medications Home Medications: Ambulatory Orders Warfarin Na [Coumadin -] 1 mg PO DAILY@1800 1 Days tablet NS 11/10/16 Losartan Potassium [Cozaar -] 50 mg PO BID 12/16/16 Simvastatin 20 mg PO DAILY 12/16/16 Amlodipine Besylate 5 mg PO DAILY 03/15/17 Ascorbic Acid [Vitamin C] 500 mg PO DAILY 03/24/17 Cholecalciferol (Vitamin D3) [Vitamin D -] 400 unit PO DAILY 03/24/17 Methenamine Hippurate [Hiprex [Nf] -] 2 gm PO BID 03/24/17 Aspirin 81 mg PO DAILY 11/05/17 Dorzolamide HCl [Trusopt 2% -] 1 drop OD BID 11/05/17 Brimonidine Tartrate/Timolol [Combigan 0.2%-0.5% Eye Drops] 1 drop OU BID Acetaminophen [Tylenol .Regular Strength -] 650 mg PO Q4H PRN tablet 11/22/17 Pantoprazole Sodium [Protonix -] 40 mg PO DAILY #90 tablet.ec 11/22/17 Polyethylene Glycol 3350 [Miralax 119 gm Btl -] 17 gm PO BID bottle 11/22/17 Ursodiol [Actigal -] 300 mg PO BID #90 capsule 11/22/17 Atenolol [Tenormin -] 100 mg PO HS 02/23/18 Latanoprost 0.005% Eye Drops [Xalatan 0.005% Eye Drops -] 2.5 ml OU HS 02/23/18 Levothyroxine [Synthroid -] 50 mcg PO MoWeFr@0700 02/23/18 Sulfamethoxazole/Trimethoprim [Bactrim Ds Tablet] 1 each PO BID #14 tablet 02/23 Family Disease History - Family Disease History Family Disease History: Diabetes: Brother (colon adenoma), Heart Disease: Father ( 76, H/O alcohol), Mother (,CKD), Brother, [place]: Son (brainneoplasm), Other: Father, Brother Physical Exam Vital Signs: Vital Signs Temperature 98 F 02/28/18 09:00 Pulse Rate 112 H 02/28/18 09:00 Respiratory Rate 18 02/28/18 09:00 Blood Pressure 102/60 02/28/18 09:00 O2 Sat by Pulse Oximetry (%) 97 02/28/18 09:00 Constitutional: Yes: Well Nourished, No Distress, Calm Eyes: Yes: Conjunctiva Clear HENT: Yes: Atraumatic, Normocephalic Neck: Yes: Supple, Trachea Midline Cardiovascular: Yes: Regular Rate and Rhythm Respiratory: Yes: Regular, CTA Bilaterally Gastrointestinal: Yes: Normal Bowel Sounds, Soft, Abdomen, Obese Edema: No Labs: CBC, BMP 02/28/18 06:30 02/28/18 06:30 Imaging - Results Cat Scan: Report Reviewed Assessment/Plan Afib: on coumadin Supra-therapeutic INR resolved. ?etiology ?concomitant inflammation/infection no bleeding noted INR now is 2.8 slow initiation of coumadin noted, close monitoring of CBC/INR. MGUS/smolderingMM/MM: for OP f/u CBC/Chem acceptable OP PET CT. Colitis: Per PMD/GI.
--- NOTE | 2018-02-28 16:46 | CON.GI ---
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: Other (macular degeneration) Cardio/Vascular: Yes: AFIB (PPM), Aortic Stenosis (0.7cm), HTN, Hyperlipdemia, Mitral Insufficiency, Pulmonary Hypertension, Other (Episodes of vaso- depressive syncope, has PPM) Gastrointestinal: Yes: Diverticulitis (02/21), Diverticulosis, Hemorrhoids, Hiatal Hernia (with Schatzki ring dilated 12/01), Other (SBO in 10/26, ischemic colitis 10/26) Hepatobiliary: Yes: Cholelithiasis (s/pcholecsytectomy), Choledocholithiasis ( ERCP/sphincerotomy for CBD stone, 11/11/17 for stent insertion) Renal/: Yes: Neurogenic Bladder (had bladder stimulator placed) Infectious Disease: Yes: Herpes Zoster (2008) Musculoskeletal: Yes: Chronic low back pain, Osteoarthritis, Other (Spinal stenosis and C spine fracture.) Endocrine: Yes: Hypothyroidism Additional Medical History: Fibrocystic breast disease. Macular degeneration. Herpes Zoster 2008. Ischemic colitis and SBO 2012. Diverticulitis 02/21. C spine fracture. Spinal stenosis. 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 Place of : [place] History of Recent Travel: No Home Medications - Allergies Allergies/Adverse Reactions: Allergies Allergy/AdvReac Type Severity Reaction Status Date / Time erythromycin base Allergy Unknown abdominal Verified 02/23/18 13:27 [Erythromycin Base] pain - Home Medications Home Medications: Ambulatory Orders Warfarin Na [Coumadin -] 1 mg PO DAILY@1800 1 Days tablet NS 11/10/16 Losartan Potassium [Cozaar -] 50 mg PO BID 12/16/16 Simvastatin 20 mg PO DAILY 12/16/16 Amlodipine Besylate 5 mg PO DAILY 03/15/17 Ascorbic Acid [Vitamin C] 500 mg PO DAILY 03/24/17 Cholecalciferol (Vitamin D3) [Vitamin D -] 400 unit PO DAILY 03/24/17 Methenamine Hippurate [Hiprex [Nf] -] 2 gm PO BID 03/24/17 Aspirin 81 mg PO DAILY 11/05/17 Dorzolamide HCl [Trusopt 2% -] 1 drop OD BID 11/05/17 Brimonidine Tartrate/Timolol [Combigan 0.2%-0.5% Eye Drops] 1 drop OU BID Acetaminophen [Tylenol .Regular Strength -] 650 mg PO Q4H PRN tablet 11/22/17 Pantoprazole Sodium [Protonix -] 40 mg PO DAILY #90 tablet.ec 11/22/17 Polyethylene Glycol 3350 [Miralax 119 gm Btl -] 17 gm PO BID bottle 11/22/17 Ursodiol [Actigal -] 300 mg PO BID #90 capsule 11/22/17 Atenolol [Tenormin -] 100 mg PO HS 02/23/18 Latanoprost 0.005% Eye Drops [Xalatan 0.005% Eye Drops -] 2.5 ml OU HS 02/23/18 Levothyroxine [Synthroid -] 50 mcg PO MoWeFr@0700 02/23/18 Sulfamethoxazole/Trimethoprim [Bactrim Ds Tablet] 1 each PO BID #14 tablet 02/23 Family Disease History - Family Disease History Family Disease History: Diabetes: Brother (colon adenoma), Heart Disease: Father ( 76, H/O alcohol), Mother (,CKD), Brother, CA: Son (brainneoplasm), Other: Father, Brother Review of Systems - Review of Systems Constitutional: reports: Loss of Appetite, Unintentional Wgt. Loss, Weakness Eyes: reports: Blurred Vision HENT: reports: No Symptoms Neck: reports: No Symptoms Cardiovascular: reports: No Symptoms Respiratory: reports: No Symptoms Gastrointestinal: reports: Abdominal Pain, Diarrhea Musculoskeletal: reports: Back Pain Physical Exam-GI Vital Signs: Vital Signs Temperature 98.5 F 02/28/18 14:00 Pulse Rate 130 H 02/28/18 14:00 Respiratory Rate 20 02/28/18 14:00 Blood Pressure 116/79 02/28/18 14:00 O2 Sat by Pulse Oximetry (%) 97 02/28/18 09:00 CBC,CMP WBC 6.4 K/mm3 (4.0-10.0) 02/28/18 06:30 RBC 3.42 M/mm3 (3.60-5.2) L 02/28/18 06:30 Hgb 11.2 GM/dL (10.7-15.3) 02/28/18 06:30 Hct 32.3 % (32.4-45.2) L 02/28/18 06:30 MCV 94.6 fl (80-96) 02/28/18 06:30 MCH 32.7 pg (25.7-33.7) 02/28/18 06:30 MCHC 34.5 g/dl (32.0-36.0) 02/28/18 06:30 RDW 14.5 % (11.6-15.6) 02/28/18 06:30 Plt Count 137 K/MM3 (134-434) 02/28/18 06:30 MPV 10.3 fl (7.5-11.1) 02/28/18 06:30 Neutrophils % 72.1 % (42.8-82.8) 02/28/18 06:30 Lymphocytes % 12.4 % (8-40) D 02/28/18 06:30 Monocytes % 14.3 % (3.8-10.2) H 02/28/18 06:30 Eosinophils % 0.7 % (0-4.5) D 02/28/18 06:30 Basophils % 0.5 % (0-2.0) 02/28/18 06:30 Sodium 131 mmol/L (136-145) L 02/28/18 06:30 Potassium 4.1 mmol/L (3.5-5.1) 02/28/18 06:30 Chloride 97 mmol/L (98-107) L 02/28/18 06:30 Carbon Dioxide 21 mmol/L (21-32) 02/28/18 06:30 Anion Gap 13 (8-16) 02/28/18 06:30 BUN 20 mg/dL (7-18) H 02/28/18 06:30 Creatinine 1.0 mg/dL (0.55-1.02) 02/28/18 06:30 Creat Clearance w eGFR 52.33 (>60) 02/28/18 06:30 Random Glucose 88 mg/dL (74-106) 02/28/18 06:30 Lactic Acid 1.6 mmol/L (0.0-2.0) 02/28/18 06:30 Calcium 8.4 mg/dL (8.5-10.1) L 02/28/18 06:30 Total Bilirubin 0.8 mg/dL (0.2-1.0) D 02/28/18 06:30 AST 26 U/L (15-37) 02/28/18 06:30 ALT 21 U/L (12-78) 02/28/18 06:30 Alkaline Phosphatase 94 U/L (45-117) 02/28/18 06:30 Troponin I 0.02 ng/ml (0.00-0.05) 02/27/18 11:29 B-Natriuretic Peptide 42584.53 pg/ml (5-450) H 02/27/18 11:29 Total Protein 7.0 g/dl (6.4-8.2) 02/28/18 06:30 Albumin 2.9 g/dl (3.4-5.0) L 02/28/18 06:30 TSH 3.81 uIU/ml (0.358-3.74) H 02/27/18 11:29 Current Medications Generic Name Dose Route Start Last Admin Trade Name Freq PRN Reason Stop Dose Admin Acetaminophen 650 mg 02/27/18 20:03 Tylenol - PO Q4H PRN FEVER Atorvastatin Calcium 10 mg 02/27/18 22:00 02/27/18 23:07 Lipitor - PO 10 mg HS [facility] Administration Brimonidine Tartrate 1 drop 02/27/18 22:00 02/28/18 09:09 Alphagan 0.2% - OU 1 drop BID [facility] Administration Cholecalciferol 400 unit 02/28/18 10:00 02/28/18 11:35 Vitamin D3 - PO 400 unit DAILY [facility] Administration Dorzolamide HCl 1 drop 02/27/18 22:00 02/28/18 09:10 Trusopt 2% OD 1 drop BID [facility] Administration Furosemide 40 mg 02/27/18 14:00 02/28/18 13:27 Lasix Injection - IVPUSH 40 mg BID@0600,1400 [facility] Administration Piperacillin Sod/Tazobactam 50 mls @ 100 mls/hr 02/28/18 02:00 Sod 3.375 gm/ Dextrose IVPB Q8H-IV [facility] Protocol Latanoprost 1 drop 02/27/18 22:00 02/27/18 23:24 Xalatan 0.005% Eye Drops - OU 1 drop HS [facility] Administration Levothyroxine Sodium 75 mcg 02/28/18 07:00 02/28/18 06:06 Synthroid - PO 75 mcg DAILY@0700 [facility] Administration Losartan Potassium 50 mg 02/28/18 10:00 02/28/18 09:09 Cozaar - PO 50 mg DAILY [facility] Administration Metoprolol Succinate 100 mg 02/27/18 13:45 02/28/18 09:09 Toprol Xl - PO 100 mg DAILY [facility] Administration Pantoprazole Sodium 40 mg 02/28/18 10:00 02/28/18 09:09 Protonix - PO 40 mg DAILY [facility] Administration Polyethylene Glycol 17 gm 02/27/18 22:00 02/28/18 09:11 Miralax (For Daily Use) - PO Not Given BID [facility] Timolol Maleate 1 drop 02/27/18 22:00 02/28/18 09:09 Timoptic 0.5% OU 1 drop BID [facility] Administration Ursodiol 300 mg 02/27/18 22:00 02/28/18 09:09 Actigal - PO 300 mg BID [facility] Administration Warfarin Sodium 1 mg 02/28/18 18:00 Coumadin - PO DAILY@1800 [facility] Constitutional: Yes: Calm Eyes: Yes: Conjunctiva Clear HENT: Yes: Atraumatic Neck: Yes: Trachea Midline Cardiovascular: Yes: Regular Rate and Rhythm (with PPM), Murmur (2/6 ELIZABETH at base ), Other (left sided PPM) Respiratory: Yes: CTA Bilaterally Gastrointestinal Inspection: Yes: Distention, Scars (healed oblique RUQ, vertical RLQ and Pfannensteil incisions) ...Auscultate: Yes: Normoactive Bowel Sounds, Hyperactive Bowel Sounds ...Palpate: Yes: Soft, Tenderness (mild periumbilical tenderness), Other ( nontender left inguinal hernia) ...Percussion: Yes: Tympanitic ...Rectal Exam: Yes: Deferred Labs: CBC, BMP 02/28/18 06:30 02/28/18 06:30 INR, PTT INR 2.82 (0.82-1.09) H D 02/28/18 06:30 Problem List - Problems (1) Diarrhea Assessment/Plan: Given the finding of left colon colitis on her recent CT the specter of C diff colitis or recurrent ischemic colitis looms. Will screen for infectious etiologies Code(s): R19.7 - DIARRHEA, UNSPECIFIED (2) Bile duct calculus Assessment/Plan: Stent is place aand LFTs WNL Code(s): K80.50 - CALCULUS OF BILE DUCT W/O CHOLANGITIS OR CHOLECYST W/O OBST Qualifiers: Cholecystitis presence: without cholecystitis Biliary obstruction: with biliary obstruction Qualified Code(s): K80.51 - Calculus of bile duct without cholangitis or cholecystitis with obstruction (3) Lower esophageal ring (Schatzki) Assessment/Plan: No dysphagia since 12/01 dilation Code(s): K22.2 - ESOPHAGEAL OBSTRUCTION
[2018-02-28] MEDS: WARFARIN NA 1 MG TABLET (FP) PO SCH (17:25)
[2018-02-28] MEDS: SIMETHICONE 80 MG TAB.CHEW (FP) PO PRN ×2 (17:25→21:15)
[2018-02-28] MEDS: ATORVASTATIN CA 10 MG TABLET (FP) PO SCH (21:15)
[2018-02-28] MEDS: LATANOPROST 0.005% OPHTH SOLN 2.5ML BOTTLE OU SCH (21:17)
[2018-02-28] MEDS: metroNIDAZOLE 250 MG TABLET PO SCH (21:33)
[2018-02-28] MEDS ORDERED: METOPROLOL TARTRATE 25 MG TABLET (FP) PO ONE (23:00)
[2018-03-01] MEDS: metroNIDAZOLE 250 MG TABLET PO SCH (06:15)
[2018-03-01] MEDS: FUROSEMIDE 40 MG/4 ML INJECTABLE VIAL IVPUSH SCH (06:15)
[2018-03-01] MEDS: LEVOTHYROXINE NA 75 MCG TABLET (FP) PO SCH (06:15)
[2018-03-01 07:38] LABS: INR 1.17 (0.82-1.09); PROTHROMBIN TIME (PATIENT) 13.2 SEC (9.98-11.88)
[2018-03-01 07:49] LABS: ANION GAP 10 (8-16); BLOOD UREA NITROGEN 20 mg/dL (7-18); CALCIUM 8.6 mg/dL (8.5-10.1); CHLORIDE 96 mmol/L (98-107); CO2 25 mmol/L (21-32); CREATININE 0.8 mg/dL (0.55-1.02); GLUCOSE,RANDOM 81 mg/dL (74-106); POTASSIUM 3.6 mmol/L (3.5-5.1); SODIUM 131 mmol/L (136-145)
--- NOTE | 2018-03-01 09:30 | PN ---
Progress Note, Physician History of Present Illness: Dyspnea and abd bloating improving. Tele shows rapid afib. - Current Medication List Current Medications: Active Medications Acetaminophen (Tylenol -) 650 mg PO Q4H PRN PRN Reason: FEVER Atorvastatin Calcium (Lipitor -) 10 mg PO HS [facility] Last Admin: 02/28/18 21:15 Dose: 10 mg Brimonidine Tartrate (Alphagan 0.2% -) 1 drop OU BID [facility] Last Admin: 02/28/18 21:17 Dose: 1 drop Cholecalciferol (Vitamin D3 -) 400 unit PO DAILY [facility] Last Admin: 02/28/18 11:35 Dose: 400 unit Dorzolamide HCl (Trusopt 2%) 1 drop OD BID [facility] Last Admin: 02/28/18 21:17 Dose: 1 drop Furosemide (Lasix Injection -) 40 mg IVPUSH BID@0600,1400 [facility] Last Admin: 03/01/18 06:15 Dose: 40 mg Piperacillin Sod/Tazobactam (Sod 3.375 gm/ Dextrose) 50 mls @ 100 mls/hr IVPB Q8H-IV [facility] PRN Reason: Protocol Lactobacillus Acidophilus (Bacid -) 1 tab PO DAILY [facility] Latanoprost (Xalatan 0.005% Eye Drops -) 1 drop OU HS [facility] Last Admin: 02/28/18 21:17 Dose: 1 drop Levothyroxine Sodium (Synthroid -) 75 mcg PO DAILY@0700 [facility] Last Admin: 03/01/18 06:15 Dose: 75 mcg Losartan Potassium (Cozaar -) 50 mg PO DAILY [facility] Last Admin: 02/28/18 09:09 Dose: 50 mg Metoprolol Succinate (Toprol Xl -) 100 mg PO DAILY [facility] Last Admin: 02/28/18 09:09 Dose: 100 mg Metronidazole (Flagyl -) 500 mg PO TID [facility] Last Admin: 03/01/18 06:15 Dose: 500 mg Pantoprazole Sodium (Protonix -) 40 mg PO DAILY [facility] Last Admin: 02/28/18 09:09 Dose: 40 mg Polyethylene Glycol (Miralax (For Daily Use) -) 17 gm PO BID [facility] Last Admin: 02/28/18 21:16 Dose: Not Given Simethicone (Mylicon -) 80 mg PO Q4H PRN PRN Reason: GAS Last Admin: 02/28/18 21:15 Dose: 80 mg Timolol Maleate (Timoptic 0.5%) 1 drop OU BID [facility] Last Admin: 02/28/18 21:17 Dose: 1 drop Warfarin Sodium (Coumadin -) 1 mg PO DAILY@1800 [facility] Last Admin: 02/28/18 17:25 Dose: 1 mg - Objective Vital Signs: Vital Signs Temperature 98.8 F 03/01/18 09:00 Pulse Rate 130 H 03/01/18 09:00 Respiratory Rate 20 03/01/18 09:00 Blood Pressure 122/78 03/01/18 09:00 O2 Sat by Pulse Oximetry (%) 96 03/01/18 08:32 Constitutional: Yes: No Distress, Calm, Thin Neck: Yes: Supple Cardiovascular: Yes: Tachycardia, Pulse Irregular Respiratory: Yes: Regular, Diminished, On Nasal O2 Gastrointestinal: Yes: Normal Bowel Sounds, Soft Edema: No Labs: CBC, BMP 02/28/18 06:30 03/01/18 06:16 INR, PTT INR 1.17 (0.82-1.09) H D 03/01/18 06:16 - ....Imaging EKG: Report Reviewed (Tele: [employer]) Problem List - Problems (1) CHF exacerbation Code(s): I50.9 - HEART FAILURE, UNSPECIFIED Qualifiers: Heart failure type: diastolic Qualified Code(s): I50.33 - Acute on chronic diastolic (congestive) heart failure (2) Atrial fibrillation Code(s): I48.91 - UNSPECIFIED ATRIAL FIBRILLATION Qualifiers: Atrial fibrillation type: persistent Qualified Code(s): I48.1 - Persistent atrial fibrillation (3) Coronary artery disease Code(s): I25.10 - ATHSCL HEART DISEASE OF [place] CORONARY ARTERY W/O ANG PCTRS Qualifiers: Coronary Disease-Associated Artery/Lesion type: [place] artery [place] vs. transplanted heart: [place] heart Associated angina: without angina Qualified Code(s): I25.10 - Atherosclerotic heart disease of [place] coronary artery without angina pectoris (4) History of pacemaker Code(s): Z95.0 - PRESENCE OF CARDIAC PACEMAKER (5) Hyperlipidemia Code(s): E78.5 - HYPERLIPIDEMIA, UNSPECIFIED Qualifiers: Hyperlipidemia type: pure hypercholesterolemia Qualified Code(s): E78.00 - Pure hypercholesterolemia, unspecified (6) Hypertension Code(s): I10 - ESSENTIAL (PRIMARY) HYPERTENSION Qualifiers: Hypertension type: essential hypertension Qualified Code(s): I10 - Essential (primary) hypertension (7) Hypothyroidism Code(s): E03.9 - HYPOTHYROIDISM, UNSPECIFIED Qualifiers: Hypothyroidism type: unspecified Qualified Code(s): E03.9 - Hypothyroidism , unspecified (8) Moderate aortic valve stenosis Code(s): I35.0 - NONRHEUMATIC AORTIC (VALVE) STENOSIS (9) Neurocardiogenic syncope Code(s): R55 - SYNCOPE AND COLLAPSE (10) Pacemaker Code(s): Z95.0 - PRESENCE OF CARDIAC PACEMAKER (11) Paroxysmal atrial fibrillation Code(s): I48.0 - PAROXYSMAL ATRIAL FIBRILLATION (12) Hyponatremia Code(s): E87.1 - HYPO-OSMOLALITY AND HYPONATREMIA (13) MGUS (monoclonal gammopathy of unknown significance) Code(s): D47.2 - MONOCLONAL GAMMOPATHY Assessment/Plan 01/06/2018 Echo: Normal LV size with mild LVHm normal LV fxn, abnl LV compliance , moderate-severe aortic valve stenosis with mild AR MG 32 mmHg, RUBY 0.7 cm^2, mildly dilated aortic root, moderate MR, TR, mild IL, RVSP 40 mmHg 1. Acute on chronic class II NYHA classification LV failure related to diastolic LV dysfunction, resolving 2. Moderate-severe aortic valve stenosis 3. Paroxysmal atrial fibrillation with RVR with subtherapeutic INR 4. CAD angina pectoris, stable 5. 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 HTN/HCVD 7. Hyperlipidemia 8. Hypothyroidism 9. Acute on CKD resolving 10. Abdominal pain, left colitis r/o c. diff vs ischemia resolving 11. Retained stones post cholecystectomy with biliary duct dilatation post therapeutic ERCP/sphincterotomy and biliary stent 12. MGUS 13. Hyponatremia PLAN: 1. Decrease IV diuresis with monitor diuretic response, renal function and electrolytes 2. Antibiotic course as per the primary team 3. Continue Losartan 50 qd with close monitoring of renal function 4. Continue Toprol XL 100 qd, IV Cardizem for additional rate-control 5. Continue Lipitor 10 qhs 6. Resumed Coumadin with caution and close monitoring of CBC and INR, maintain INR 2-3 7. Pacemaker interrogation 8. Patient has interstitial lung disease (abnormal PFT's) in view of which Amiodarone therapy is not an option, may consider Betapace once euvolemic or Tikosyn with caution for both therapies
[2018-03-01] MEDS ORDERED: PT OWN MED DRAWER 7, Y5N ONE ×2 (09:37→20:59)
[2018-03-01] MEDS ORDERED: dilTIAZem HCL 50 MG/10 ML - 10 ML VIAL IVPUSH PRN (09:40)
[2018-03-01] MEDS: LOSARTAN POTASSIUM 50 MG TABLET (FP) PO SCH (09:45)
[2018-03-01] MEDS: LACTOBACILLUS ACIDOPHILUS 1 TABLET PO SCH (09:45)
[2018-03-01] MEDS: TIMOLOL 0.5% OPHTHALMIC SOL 5 ML BOTTLE OU SCH ×2 (09:46→21:05)
[2018-03-01] MEDS: PANTOPRAZOLE 40 MG TABLET (FP) PO SCH (09:46)
[2018-03-01] MEDS: CHOLECALCIFEROL (VITAMIN D3) 400 UNIT TABLET (FP) PO SCH (09:47)
[2018-03-01] MEDS: DORZOLAMIDE 2% HCL OPHTHALMIC SOLUTION 10 ML BOTTLE OD SCH ×2 (09:47→21:05)
[2018-03-01] MEDS: BRIMONIDINE TARTRATE 0.2% OPHTHALMIC 5 ML BOTTLE OU SCH ×2 (09:49→21:05)
[2018-03-01] MEDS: POLYETHYLENE GLYCOL 3350 119 GM BTL PO SCH ×2 (09:54→21:01)
--- NOTE | 2018-03-01 11:00 | PN ---
Progress Note, Physician Chief Complaint: no new c/o events and consults noted RAFib for CARLI CV in am - Current Medication List Current Medications: Active Medications Acetaminophen (Tylenol -) 650 mg PO Q4H PRN PRN Reason: FEVER Atorvastatin Calcium (Lipitor -) 10 mg PO HS [facility] Last Admin: 02/28/18 21:15 Dose: 10 mg Brimonidine Tartrate (Alphagan 0.2% -) 1 drop OU BID [facility] Last Admin: 03/01/18 09:49 Dose: 1 drop Cholecalciferol (Vitamin D3 -) 400 unit PO DAILY [facility] Last Admin: 03/01/18 09:47 Dose: 400 unit Diltiazem HCl (Cardizem Injection -) 10 mg IVPUSH Q4H PRN PRN Reason: TACHYCARDIA Dorzolamide HCl (Trusopt 2%) 1 drop OD BID [facility] Last Admin: 03/01/18 09:47 Dose: 1 drop Furosemide (Lasix Injection -) 40 mg IVPUSH DAILY [facility] Piperacillin Sod/Tazobactam (Sod 3.375 gm/ Dextrose) 50 mls @ 100 mls/hr IVPB Q8H-IV [facility] PRN Reason: Protocol Lactobacillus Acidophilus (Bacid -) 1 tab PO DAILY [facility] Last Admin: 03/01/18 09:45 Dose: 1 tab Latanoprost (Xalatan 0.005% Eye Drops -) 1 drop OU [facility] Last Admin: 02/28/18 21:17 Dose: 1 drop Levothyroxine Sodium (Synthroid -) 75 mcg PO DAILY@0700 [facility] Last Admin: 03/01/18 06:15 Dose: 75 mcg Losartan Potassium (Cozaar -) 50 mg PO DAILY [facility] Last Admin: 03/01/18 09:45 Dose: 50 mg Metoprolol Succinate (Toprol Xl -) 100 mg PO DAILY [facility] Last Admin: 03/01/18 09:46 Dose: 100 mg Metronidazole (Flagyl -) 500 mg PO TID [facility] Last Admin: 03/01/18 06:15 Dose: 500 mg Pantoprazole Sodium (Protonix -) 40 mg PO DAILY [facility] Last Admin: 03/01/18 09:46 Dose: 40 mg Polyethylene Glycol (Miralax (For Daily Use) -) 17 gm PO BID [facility] Last Admin: 03/01/18 09:54 Dose: 17 gm Simethicone (Mylicon -) 80 mg PO Q4H PRN PRN Reason: GAS Last Admin: 02/28/18 21:15 Dose: 80 mg Timolol Maleate (Timoptic 0.5%) 1 drop OU BID [facility] Last Admin: 03/01/18 09:46 Dose: 1 drop Warfarin Sodium (Coumadin -) 1 mg PO DAILY@1800 [facility] Last Admin: 02/28/18 17:25 Dose: 1 mg Warfarin Sodium (Coumadin -) 1 mg PO NOW ONE Stop: 03/01/18 11:00 - Objective Vital Signs: Vital Signs Temperature 98.8 F 03/01/18 09:00 Pulse Rate 130 H 03/01/18 09:00 Respiratory Rate 20 03/01/18 09:00 Blood Pressure 122/78 03/01/18 09:00 O2 Sat by Pulse Oximetry (%) 96 03/01/18 08:32 Constitutional: Yes: No Distress, Calm Eyes: Yes: Conjunctiva Clear HENT: Yes: Atraumatic Neck: Yes: Supple Cardiovascular: Yes: Tachycardia Respiratory: Yes: Diminished Gastrointestinal: Yes: Soft. No: Tenderness Genitourinary: No: CVA Tenderness - Left, CVA Tenderness - Right Musculoskeletal: No: Joint Stiffness, Joint Swelling Extremities: No: Cold, Cool, Cyanosis Edema: No Integumentary: No: Rash, Venous Stasis Changes Neurological: Yes: WNL, Alert, Oriented ...Motor Strength: WNL Psychiatric: Yes: WNL, Alert, Oriented. No: Agitated, Suicidal Ideation Labs: CBC, BMP 02/28/18 06:30 03/01/18 06:16 INR, PTT INR 1.17 (0.82-1.09) H D 03/01/18 06:16 - ....Imaging Other: Report Reviewed Assessment/Plan 87 year old female with pmh CBD stone s/p ERCP s/p stent placement, atrial fibrillation (on Coumadin), Ao Stenosis, HTN, HLD, CAD s/p stents and pacemaker , hypothyroidism, diverticulitis, recurrent UTIs p/w generalized weakness s/p UTI on bactrim. Admitted with general weakness and shortness of breath, urinary retention. Coumadin toxicity INR 9 received 5 mg sq vit K in ER Fluid overloaded, RAFib for CARLI CV in am if no atrial clot cardiology, GI, heme f/u will d/w cardiology further Ao Stenosis eval and treatment GI eval for biliary stent IV lasix HR control Lea to drain urine; pt has a pacemaker inserted by [facility] f/u labs and cultures falls PFX prognosis guarded d/w pt and daughter d/w staff
[2018-03-01] MEDS ORDERED: WARFARIN NA 1 MG TABLET (FP) PO ONE (11:45)
--- NOTE | 2018-03-01 12:17 | PN ---
GI Progress Note Subjective: GI NOte: NO diarrhea, in fact no BM in 2 days. Will stop Flagyl and lactose restriction. Dr. Mccord's note appreciated. Chyna tells me that plans are to proceed with the TAVR. Recovering from CHF. Abdominal cramps may reflect intestinal angina due to low flow state. Will defer repeat ERCP with stent insertion until after TAVR. - Objective Vital Signs: Vital Signs Temperature 98.8 F 03/01/18 09:00 Pulse Rate 130 H 03/01/18 09:00 Respiratory Rate 20 03/01/18 09:00 Blood Pressure 122/78 03/01/18 09:00 O2 Sat by Pulse Oximetry (%) 96 03/01/18 08:32 Constitutional: No Distress ...Auscultate: Yes: Hypoactive Bowel Sounds ...Palpate: Yes: Soft, Other (nontender) ...Percussion: Yes: Tympanitic Labs: CBC, BMP 02/28/18 06:30 03/01/18 06:16 INR, PTT INR 1.17 (0.82-1.09) H D 03/01/18 06:16 Problem List - Problems (1) Diarrhea Assessment/Plan: No diarrhea or colitis evident. Will stop Flagyl and lactose restrictions Code(s): R19.7 - DIARRHEA, UNSPECIFIED (2) Bile duct calculus Code(s): K80.50 - CALCULUS OF BILE DUCT W/O CHOLANGITIS OR CHOLECYST W/O OBST Qualifiers: Cholecystitis presence: without cholecystitis Biliary obstruction: with biliary obstruction Qualified Code(s): K80.51 - Calculus of bile duct without cholangitis or cholecystitis with obstruction (3) Lower esophageal ring (Schatzki) Code(s): K22.2 - ESOPHAGEAL OBSTRUCTION
[2018-03-01] MEDS: WARFARIN NA 1 MG TABLET (FP) PO SCH (17:33)
[2018-03-01] MEDS: SOTALOL HCL 80 MG TABLET (FP) PO SCH (21:02)
[2018-03-01] MEDS: ATORVASTATIN CA 10 MG TABLET (FP) PO SCH (21:02)
[2018-03-01] MEDS: LATANOPROST 0.005% OPHTH SOLN 2.5ML BOTTLE OU SCH (21:05)
[2018-03-02] MEDS: LEVOTHYROXINE NA 75 MCG TABLET (FP) PO SCH (06:12)
--- NOTE | 2018-03-02 07:39 | PN ---
Progress Note, Physician Chief Complaint: in bed alert awake NAD no new co - Current Medication List Current Medications: Active Medications Acetaminophen (Tylenol -) 650 mg PO Q4H PRN PRN Reason: FEVER Atorvastatin Calcium (Lipitor -) 10 mg PO HS [facility] Last Admin: 03/01/18 21:02 Dose: 10 mg Brimonidine Tartrate (Alphagan 0.2% -) 1 drop OU BID [facility] Last Admin: 03/01/18 21:05 Dose: 1 drop Cholecalciferol (Vitamin D3 -) 400 unit PO DAILY [facility] Last Admin: 03/01/18 09:47 Dose: 400 unit Diltiazem HCl (Cardizem Injection -) 10 mg IVPUSH Q4H PRN PRN Reason: TACHYCARDIA Last Admin: 03/01/18 10:59 Dose: 10 mg Dorzolamide HCl (Trusopt 2%) 1 drop OD BID [facility] Last Admin: 03/01/18 21:05 Dose: 1 drop Furosemide (Lasix Injection -) 40 mg IVPUSH DAILY [facility] Lactobacillus Acidophilus (Bacid -) 1 tab PO DAILY [facility] Last Admin: 03/01/18 09:45 Dose: 1 tab Latanoprost (Xalatan 0.005% Eye Drops -) 1 drop OU [facility] Last Admin: 03/01/18 21:05 Dose: 1 drop Levothyroxine Sodium (Synthroid -) 75 mcg PO DAILY@0700 [facility] Last Admin: 03/02/18 06:12 Dose: Not Given Losartan Potassium (Cozaar -) 50 mg PO DAILY [facility] Last Admin: 03/01/18 09:45 Dose: 50 mg Pantoprazole Sodium (Protonix -) 40 mg PO DAILY [facility] Last Admin: 03/01/18 09:46 Dose: 40 mg Polyethylene Glycol (Miralax (For Daily Use) -) 17 gm PO BID [facility] Last Admin: 03/01/18 21:01 Dose: 17 gm Simethicone (Mylicon -) 80 mg PO Q4H PRN PRN Reason: GAS Last Admin: 02/28/18 21:15 Dose: 80 mg Sotalol HCl (Betapace -) 80 mg PO BID [facility] Last Admin: 03/01/18 21:02 Dose: 80 mg Timolol Maleate (Timoptic 0.5%) 1 drop OU BID [facility] Last Admin: 04/18/18 21:05 Dose: 1 drop Warfarin Sodium (Coumadin -) 1 mg PO DAILY@1800 [facility] Last Admin: 03/01/18 17:33 Dose: 1 mg - Objective Vital Signs: Vital Signs Temperature 99.2 F 03/02/18 06:00 Pulse Rate 115 H 03/02/18 06:00 Respiratory Rate 18 03/02/18 06:00 Blood Pressure 93/60 03/02/18 06:00 O2 Sat by Pulse Oximetry (%) 95 03/01/18 21:00 Constitutional: Yes: No Distress, Calm Eyes: Yes: Conjunctiva Clear HENT: Yes: Atraumatic Neck: Yes: Supple Cardiovascular: No: Regular Rate and Rhythm Respiratory: Yes: Diminished Gastrointestinal: Yes: Soft. No: Tenderness Genitourinary: No: CVA Tenderness - Left, CVA Tenderness - Right Musculoskeletal: No: Joint Stiffness, Joint Swelling Extremities: No: Cold, Cool, Cyanosis Edema: No Integumentary: No: Rash, Venous Stasis Changes Neurological: Yes: WNL, Alert, Oriented ...Motor Strength: WNL Psychiatric: Yes: WNL, Alert, Oriented. No: Agitated Labs: INR, PTT INR 1.17 (0.82-1.09) H D 03/01/18 06:16 - ....Imaging Other: Report Reviewed Assessment/Plan 87 year old female with pmh CBD stone s/p ERCP s/p stent placement, atrial fibrillation (on Coumadin), Ao Stenosis, HTN, HLD, CAD s/p stents and pacemaker , hypothyroidism, diverticulitis, recurrent UTIs p/w generalized weakness s/p UTI on bactrim. Admitted with general weakness and shortness of breath, urinary retention. Coumadin toxicity INR 9 received 5 mg sq vit K in ER Fluid overloaded, RAFib for CARLI CV per cardiology cardiology, GI, heme f/u will d/w cardiology further Ao Stenosis eval and treatment GI eval for biliary stent IV lasix HR control Lea to drain urine; pt has a pacemaker inserted by f/u labs and cultures falls PFX prognosis guarded d/w pt, d/w staff
[2018-03-02 07:52] LABS: INR 1.08 (0.82-1.09); PROTHROMBIN TIME (PATIENT) 12.2 SEC (9.98-11.88)
[2018-03-02 07:57] LABS: BASO % 0.4 % (0-2.0); HEMATOCRIT 32.9 % (32.4-45.2); HEMOGLOBIN 11.4 GM/dL (10.7-15.3); LYMPH % 11.4 % (8-40); MCH 32.3 pg (25.7-33.7); MCHC 34.5 g/dl (32.0-36.0); MEAN CELL VOLUME 93.6 fl (80-96); MEAN PLT VOLUME 10.2 fl (7.5-11.1); NEUT % 71.2 % (42.8-82.8); PLATELET COUNT 133 K/MM3 (134-434); RBC 3.52 M/mm3 (3.60-5.2); RDW 14.2 % (11.6-15.6); WHITE BLOOD COUNT 6.9 K/mm3 (4.0-10.0)
[2018-03-02 08:09] LABS: CHLORIDE 95 mmol/L (98-107); POTASSIUM 3.7 mmol/L (3.5-5.1); SODIUM 131 mmol/L (136-145)
[2018-03-02 08:19] LABS: ALBUMIN 2.7 g/dl (3.4-5.0); ALK PHOS 89 U/L (45-117); ANION GAP 10 (8-16); BILIRUBIN,TOTAL 0.6 mg/dL (0.2-1.0); BLOOD UREA NITROGEN 20 mg/dL (7-18); CALCIUM 8.9 mg/dL (8.5-10.1); CO2 26 mmol/L (21-32); CREATININE 0.7 mg/dL (0.55-1.02); GLUCOSE,RANDOM 91 mg/dL (74-106); SGOT/AST 18 U/L (15-37); SGPT/ALT 18 U/L (12-78); TOT PROT 6.8 g/dl (6.4-8.2)
--- NOTE | 2018-03-02 09:53 | PN ---
Progress Note, Physician History of Present Illness: Dyspnea and abd bloating improving, reports fatigue. Tele shows rapid afib. - Current Medication List Current Medications: Active Medications Acetaminophen (Tylenol -) 650 mg PO Q4H PRN PRN Reason: FEVER Atorvastatin Calcium (Lipitor -) 10 mg PO HS [facility] Last Admin: 03/01/18 21:02 Dose: 10 mg Brimonidine Tartrate (Alphagan 0.2% -) 1 drop OU BID [facility] Last Admin: 03/01/18 21:05 Dose: 1 drop Cholecalciferol (Vitamin D3 -) 400 unit PO DAILY [facility] Last Admin: 03/01/18 09:47 Dose: 400 unit Diltiazem HCl (Cardizem Injection -) 10 mg IVPUSH Q4H PRN PRN Reason: TACHYCARDIA Last Admin: 03/01/18 10:59 Dose: 10 mg Dorzolamide HCl (Trusopt 2%) 1 drop OD BID [facility] Last Admin: 03/01/18 21:05 Dose: 1 drop Furosemide (Lasix Injection -) 40 mg IVPUSH DAILY [facility] Lactobacillus Acidophilus (Bacid -) 1 tab PO DAILY [facility] Last Admin: 03/01/18 09:45 Dose: 1 tab Latanoprost (Xalatan 0.005% Eye Drops -) 1 drop OU HS [facility] Last Admin: 03/01/18 21:05 Dose: 1 drop Levothyroxine Sodium (Synthroid -) 75 mcg PO DAILY@0700 [facility] Last Admin: 03/02/18 06:12 Dose: Not Given Losartan Potassium (Cozaar -) 25 mg PO DAILY [facility] Pantoprazole Sodium (Protonix -) 40 mg PO DAILY [facility] Last Admin: 03/01/18 09:46 Dose: 40 mg Polyethylene Glycol (Miralax (For Daily Use) -) 17 gm PO BID [facility] Last Admin: 03/01/18 21:01 Dose: 17 gm Simethicone (Mylicon -) 80 mg PO Q4H PRN PRN Reason: GAS Last Admin: 02/28/18 21:15 Dose: 80 mg Sotalol HCl (Betapace -) 80 mg PO BID [facility] Last Admin: 03/01/18 21:02 Dose: 80 mg Timolol Maleate (Timoptic 0.5%) 1 drop OU BID [facility] Last Admin: 03/01/18 21:05 Dose: 1 drop Warfarin Sodium (Coumadin -) 1 mg PO DAILY@1800 [facility] Last Admin: 03/01/18 17:33 Dose: 1 mg - Objective Vital Signs: Vital Signs Temperature 99.2 F 03/02/18 06:00 Pulse Rate 115 H 03/02/18 06:00 Respiratory Rate 18 03/02/18 06:00 Blood Pressure 93/60 03/02/18 06:00 O2 Sat by Pulse Oximetry (%) 95 03/01/18 21:00 Constitutional: Yes: No Distress, Calm, Thin Neck: Yes: Supple Cardiovascular: Yes: Tachycardia, Pulse Irregular Respiratory: Yes: Regular, Diminished Gastrointestinal: Yes: Normal Bowel Sounds, Soft Edema: No Labs: CBC, BMP 03/02/18 06:40 03/02/18 06:40 INR, PTT INR 1.08 (0.82-1.09) 03/02/18 06:40 - ....Imaging EKG: Report Reviewed (Afib with occ v-pacing @ 114) Problem List - Problems (1) CHF exacerbation Code(s): I50.9 - HEART FAILURE, UNSPECIFIED Qualifiers: Heart failure type: diastolic Qualified Code(s): I50.33 - Acute on chronic diastolic (congestive) heart failure (2) Atrial fibrillation Code(s): I48.91 - UNSPECIFIED ATRIAL FIBRILLATION Qualifiers: Atrial fibrillation type: persistent Qualified Code(s): I48.1 - Persistent atrial fibrillation (3) Coronary artery disease Code(s): I25.10 - ATHSCL HEART DISEASE OF [place] CORONARY ARTERY W/O ANG PCTRS Qualifiers: Coronary Disease-Associated Artery/Lesion type: [place] artery [place] vs. transplanted heart: [place] heart Associated angina: without angina Qualified Code(s): I25.10 - Atherosclerotic heart disease of [place] coronary artery without angina pectoris (4) History of pacemaker Code(s): Z95.0 - PRESENCE OF CARDIAC PACEMAKER (5) Hyperlipidemia Code(s): E78.5 - HYPERLIPIDEMIA, UNSPECIFIED Qualifiers: Hyperlipidemia type: pure hypercholesterolemia Qualified Code(s): E78.00 - Pure hypercholesterolemia, unspecified (6) Hypertension Code(s): I10 - ESSENTIAL (PRIMARY) HYPERTENSION Qualifiers: Hypertension type: essential hypertension Qualified Code(s): I10 - Essential (primary) hypertension (7) Hypothyroidism Code(s): E03.9 - HYPOTHYROIDISM, UNSPECIFIED Qualifiers: Hypothyroidism type: unspecified Qualified Code(s): E03.9 - Hypothyroidism , unspecified (8) Moderate aortic valve stenosis Code(s): I35.0 - NONRHEUMATIC AORTIC (VALVE) STENOSIS (9) Neurocardiogenic syncope Code(s): R55 - SYNCOPE AND COLLAPSE (10) Pacemaker Code(s): Z95.0 - PRESENCE OF CARDIAC PACEMAKER (11) Paroxysmal atrial fibrillation Code(s): I48.0 - PAROXYSMAL ATRIAL FIBRILLATION (12) Hyponatremia Code(s): E87.1 - HYPO-OSMOLALITY AND HYPONATREMIA (13) MGUS (monoclonal gammopathy of unknown significance) Code(s): D47.2 - MONOCLONAL GAMMOPATHY Assessment/Plan 01/06/2018 Echo: Normal LV size with mild LVHm normal LV fxn, abnl LV compliance , moderate-severe aortic valve stenosis with mild AR MG 32 mmHg, RUBY 0.7 cm^2, mildly dilated aortic root, moderate MR, TR, mild VT, RVSP 40 mmHg 1. Acute on chronic class II NYHA classification LV failure related to diastolic LV dysfunction, resolving 2. Moderate-severe aortic valve stenosis 3. Paroxysmal atrial fibrillation with RVR and subtherapeutic INR 4. CAD angina pectoris, stable 5. 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 HTN/HCVD 7. Hyperlipidemia 8. Hypothyroidism 9. Acute on CKD resolving 10. Abdominal pain, left colitis r/o c. diff vs ischemia resolving 11. Retained stones post cholecystectomy with biliary duct dilatation post therapeutic ERCP/sphincterotomy and biliary stent 12. MGUS 13. Hyponatremia PLAN: 1. IV diuresis with monitor diuretic response, renal function and electrolytes 2. Antibiotic course as per the primary team 3. Continue Losartan 50 qd with close monitoring of renal function 4. Continue Sotalol 80 bid, IV Cardizem for additional rate-control 5. Continue Lipitor 10 qhs 6. Continue Coumadin to achieve INR 2-3 (had received vit K IM in ER) 7. Plan for CARLI-guided DCCV today 8. Patient has interstitial lung disease (abnormal PFT's) in view of which Amiodarone therapy is not an option
[2018-03-02] MEDS: LOSARTAN POTASSIUM 25 MG TABLET PO SCH (10:00)
--- NOTE | 2018-03-02 10:14 | PN ---
Progress Note, Physician Chief Complaint: Events noted AF with RVR and periods of ventricular pacing History of Present Illness: Patient was seen and examined. Awake and alert. Chart was reviewed Denies chest pain or SOB this am Discussed CARLI +/- synchronized cardioversion - Current Medication List Current Medications: Active Medications Acetaminophen (Tylenol -) 650 mg PO Q4H PRN PRN Reason: FEVER Atorvastatin Calcium (Lipitor -) 10 mg PO HS [facility] Last Admin: 03/01/18 21:02 Dose: 10 mg Brimonidine Tartrate (Alphagan 0.2% -) 1 drop OU BID [facility] Last Admin: 03/01/18 21:05 Dose: 1 drop Cholecalciferol (Vitamin D3 -) 400 unit PO DAILY [facility] Last Admin: 03/01/18 09:47 Dose: 400 unit Diltiazem HCl (Cardizem Injection -) 10 mg IVPUSH Q4H PRN PRN Reason: TACHYCARDIA Last Admin: 03/01/18 10:59 Dose: 10 mg Dorzolamide HCl (Trusopt 2%) 1 drop OD BID [facility] Last Admin: 03/01/18 21:05 Dose: 1 drop Furosemide (Lasix Injection -) 40 mg IVPUSH DAILY [facility] Lactobacillus Acidophilus (Bacid -) 1 tab PO DAILY [facility] Last Admin: 03/01/18 09:45 Dose: 1 tab Latanoprost (Xalatan 0.005% Eye Drops -) 1 drop OU HS [facility] Last Admin: 03/01/18 21:05 Dose: 1 drop Levothyroxine Sodium (Synthroid -) 75 mcg PO DAILY@0700 [facility] Last Admin: 03/02/18 06:12 Dose: Not Given Losartan Potassium (Cozaar -) 25 mg PO DAILY [facility] Pantoprazole Sodium (Protonix -) 40 mg PO DAILY [facility] Last Admin: 03/01/18 09:46 Dose: 40 mg Polyethylene Glycol (Miralax (For Daily Use) -) 17 gm PO BID [facility] Last Admin: 03/01/18 21:01 Dose: 17 gm Simethicone (Mylicon -) 80 mg PO Q4H PRN PRN Reason: GAS Last Admin: 02/28/18 21:15 Dose: 80 mg Sotalol HCl (Betapace -) 80 mg PO BID [facility] Last Admin: 03/01/18 21:02 Dose: 80 mg Timolol Maleate (Timoptic 0.5%) 1 drop OU BID [facility] Last Admin: 03/01/18 21:05 Dose: 1 drop Warfarin Sodium (Coumadin -) 1 mg PO DAILY@1800 [facility] Last Admin: 03/01/18 17:33 Dose: 1 mg - Objective Vital Signs: Vital Signs Temperature 99.2 F 03/02/18 06:00 Pulse Rate 115 H 03/02/18 06:00 Respiratory Rate 18 03/02/18 06:00 Blood Pressure 93/60 03/02/18 06:00 O2 Sat by Pulse Oximetry (%) 95 03/01/18 21:00 HENT: Yes: Atraumatic Neck: Yes: Supple Cardiovascular: Yes: Tachycardia, Pulse Irregular, Murmur (2/6 ELIZABETH and apical SM ), S1, S2 Respiratory: Yes: CTA Bilaterally Gastrointestinal: Yes: Normal Bowel Sounds, Soft. No: Tenderness Edema: No Additional Findings/Remarks: - Review of Systems Constitutional: denies fever or chills Respiratory: Denies: Cough or Sputum Production Cardiovascular: Denies chest pain Gastrointestinal: denies Nausea, Vomiting, Diarrhea, Constipation but reports Lower Abdominal Pain Genitourinary: No symptoms reported Musculoskeletal: Degenerative Joint Disease Endocrine: No symptoms reported Labs: CBC, BMP 03/02/18 06:40 03/02/18 06:40 INR, PTT INR 1.08 (0.82-1.09) 03/02/18 06:40 Problem List - Problems (1) MGUS (monoclonal gammopathy of unknown significance) Code(s): D47.2 - MONOCLONAL GAMMOPATHY (2) Achalasia Code(s): K22.0 - ACHALASIA OF CARDIA (3) Atrial fibrillation Code(s): I48.91 - UNSPECIFIED ATRIAL FIBRILLATION Qualifiers: Atrial fibrillation type: persistent Qualified Code(s): I48.1 - Persistent atrial fibrillation (4) Bile duct calculus Code(s): K80.50 - CALCULUS OF BILE DUCT W/O CHOLANGITIS OR CHOLECYST W/O OBST Qualifiers: Cholecystitis presence: without cholecystitis Biliary obstruction: with biliary obstruction Qualified Code(s): K80.51 - Calculus of bile duct without cholangitis or cholecystitis with obstruction (5) Colic, biliary Code(s): K80.50 - CALCULUS OF BILE DUCT W/O CHOLANGITIS OR CHOLECYST W/O OBST (6) Coronary artery disease Code(s): I25.10 - ATHSCL HEART DISEASE OF [place] CORONARY ARTERY W/O ANG PCTRS Qualifiers: Coronary Disease-Associated Artery/Lesion type: [place] artery [place] vs. transplanted heart: [place] heart Associated angina: without angina Qualified Code(s): I25.10 - Atherosclerotic heart disease of [place] coronary artery without angina pectoris (7) GERD (gastroesophageal reflux disease) Code(s): K21.9 - GASTRO-ESOPHAGEAL REFLUX DISEASE WITHOUT ESOPHAGITIS Qualifiers: Esophagitis presence: without esophagitis Qualified Code(s): K21.9 - Gastro -esophageal reflux disease without esophagitis (8) History of endoscopic retrograde cholangiopancreatography Code(s): Z98.890 - OTHER SPECIFIED POSTPROCEDURAL STATES (9) History of pacemaker Code(s): Z95.0 - PRESENCE OF CARDIAC PACEMAKER (10) Hyperlipidemia Code(s): E78.5 - HYPERLIPIDEMIA, UNSPECIFIED Qualifiers: Hyperlipidemia type: pure hypercholesterolemia Qualified Code(s): E78.00 - Pure hypercholesterolemia, unspecified (11) Hypertension Code(s): I10 - ESSENTIAL (PRIMARY) HYPERTENSION Qualifiers: Hypertension type: essential hypertension Qualified Code(s): I10 - Essential (primary) hypertension (12) Hypothyroidism Code(s): E03.9 - HYPOTHYROIDISM, UNSPECIFIED Qualifiers: Hypothyroidism type: unspecified Qualified Code(s): E03.9 - Hypothyroidism , unspecified (13) Lower esophageal ring ([place]) Code(s): K22.2 - ESOPHAGEAL OBSTRUCTION (14) Moderate aortic valve stenosis Code(s): I35.0 - NONRHEUMATIC AORTIC (VALVE) STENOSIS (15) Neurocardiogenic syncope Code(s): R55 - SYNCOPE AND COLLAPSE Assessment/Plan 1. Acute on chronic class II NYHA classification LV failure related to diastolic LV dysfunction 2. Moderate-severe aortic valve stenosis 3. Paroxysmal atrial fibrillation with RVR with subtherapeutic INR 4. CAD angina pectoris, stable 5. 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 HTN/HCVD 7. Hyperlipidemia 8. Hypothyroidism 9. Acute on CKD 10. Abdominal pain, left colitis r/o c. diff vs ischemia resolving 11. Retained stones post cholecystectomy with biliary duct dilatation post therapeutic ERCP/sphincterotomy and biliary stent 12. History of schatz[place] ring dilation 13. MGUS 14. Hyponatremia PLAN: 1. Continue IV diuresis with monitoring renal function and electrolytes 2. Antibiotic course 3. Continue Losartan 50 qd with close monitoring of renal function 4. Continue Sotalol 80 mg BID and monitor QTc. Consider CARLI and synchronized cardioversion today 5. Continue Lipitor 10 qhs 6. Resumed Coumadin with caution and close monitoring of CBC and INR, maintain INR 2-3. Since she has subtherapeutic INR, consider Heparin drip as a bridge 7. Pacemaker interrogation can be followed as outpatient Further plans are to follow Alejandro Elise MD
[2018-03-02] MEDS ORDERED: HEPARIN NA (PORCINE) 5,000 UNITS/ML 1ML VIAL IVPUSH PRN ×2 (10:20)
[2018-03-02] MEDS ORDERED: PT OWN MED DRAWER 7, Y5N ONE ×3 (10:23→21:43)
[2018-03-02] MEDS: LACTOBACILLUS ACIDOPHILUS 1 TABLET PO SCH (10:24)
[2018-03-02] MEDS: POLYETHYLENE GLYCOL 3350 119 GM BTL PO SCH ×2 (10:24→21:43)
[2018-03-02] MEDS: SOTALOL HCL 80 MG TABLET (FP) PO SCH ×2 (10:24→21:47)
[2018-03-02] MEDS: PANTOPRAZOLE 40 MG TABLET (FP) PO SCH (10:25)
[2018-03-02] MEDS: TIMOLOL 0.5% OPHTHALMIC SOL 5 ML BOTTLE OU SCH ×2 (10:25→21:47)
[2018-03-02] MEDS: DORZOLAMIDE 2% HCL OPHTHALMIC SOLUTION 10 ML BOTTLE OD SCH ×2 (10:26→21:48)
[2018-03-02] MEDS: BRIMONIDINE TARTRATE 0.2% OPHTHALMIC 5 ML BOTTLE OU SCH ×2 (10:26→21:48)
[2018-03-02] MEDS: HEPARIN INFUSION - 25,000 UNITS/500 ML INFUS.BAG IVPB SCH (10:42)
[2018-03-02] MEDS ORDERED: LIDOCAINE VISCOUS 2% ORAL/TOP 20 ML UNIT-DOSE CUP ONE (10:45)
--- NOTE | 2018-03-02 11:21 | EKG ---
Test Reason : Blood Pressure : / mmHG Vent. Rate : 114 BPM Atrial Rate : 156 BPM P-R Int : 000 ms QRS Dur : 104 ms QT Int : 366 ms P-R-T Axes : 000 -23 014 degrees QTc Int : 504 ms ATRIAL FIBRILLATION WITH RAPID VENTRICULAR RESPONSE WITH FREQUENT ventricular-paced complexes ABNORMAL ECG WHEN COMPARED WITH ECG OF 27-FEB-2018 10:48, ELECTRONIC VENTRICULAR PACEMAKER HAS REPLACED ATRIAL FIBRILLATION Confirmed by LISA RENTERIA MD ([id number]) on 03/02/2018 11:21:05 AM [facility] Confirmed By:LISA RENTERIA MD
[2018-03-02] MEDS ORDERED: PHENYLEPHRINE HCL 10 MG/1 ML SINGLE DOSE VIAL ONE (12:08)
[2018-03-02] MEDS ORDERED: WARFARIN NA 1 MG TABLET (FP) PO ONE (12:10)
[2018-03-02] MEDS ORDERED: ePHEDrine SULFATE 50 MG/1 ML AMPULE ONE (12:27)
--- NOTE | 2018-03-02 14:50 | EKG ---
Test Reason : Blood Pressure : / mmHG Vent. Rate : 062 BPM Atrial Rate : 062 BPM P-R Int : 000 ms QRS Dur : 098 ms QT Int : 466 ms P-R-T Axes : 112 -23 012 degrees QTc Int : 472 ms Atrial-paced rhythm with prolonged AV conduction NONSPECIFIC ST AND T WAVE ABNORMALITY ABNORMAL ECG WHEN COMPARED WITH ECG OF 02-MAR-2018 08:59, ELECTRONIC ATRIAL PACEMAKER HAS REPLACED ELECTRONIC VENTRICULAR PACEMAKER VENT. RATE HAS DECREASED BY 52 BPM Confirmed by LISA RENTERIA MD ([id number]) on 03/02/2018 2:49:46 PM Referred By: Confirmed By:LISA RENTERIA MD
--- NOTE | 2018-03-02 15:35 | PN ---
Progress Note (short form) - Note Progress Note: Last Vital Signs Temp Pulse Resp BP Pulse Ox 98.8 F 65 18 102/69 97 03/02/18 14:35 03/02/18 14:35 03/02/18 14:35 03/02/18 14:35 03/02/18 13:18 CBC, BMP 03/02/18 06:40 03/02/18 06:40 Current Medications Generic Name Dose Route Start Last Admin Trade Name Freq PRN Reason Stop Dose Admin Acetaminophen 650 mg 02/27/18 20:03 Tylenol - PO Q4H PRN FEVER Atorvastatin Calcium 10 mg 02/27/18 22:00 03/01/18 21:02 Lipitor - PO 10 mg HS [facility] Administration Brimonidine Tartrate 1 drop 02/27/18 22:00 03/02/18 10:26 Alphagan 0.2% - OU 1 drop BID [facility] Administration Cholecalciferol 400 unit 02/28/18 10:00 03/01/18 09:47 Vitamin D3 - PO 400 unit DAILY [facility] Administration Diltiazem HCl 10 mg 03/01/18 09:40 03/01/18 10:59 Cardizem Injection - IVPUSH 10 mg Q4H PRN Administration TACHYCARDIA Dorzolamide HCl 1 drop 02/27/18 22:00 03/02/18 10:26 Trusopt 2% OD 1 drop BID [facility] Administration Furosemide 40 mg 03/02/18 10:00 Lasix Injection - IVPUSH DAILY [facility] Heparin Sodium (Porcine) 1,000 unit 03/02/18 10:20 Heparin - IVPUSH PRN PRN Heparin Heparin Sodium (Porcine) 5,000 unit 03/02/18 10:20 Heparin - IVPUSH PRN PRN Heparin Heparin Sodium/Dextrose 25,000 units in 500 mls @ 20 mls/hr 03/02/18 10:30 10:42 Heparin Infusion - IVPB 1,000 units/hr TITR [facility] 20 mls/hr Protocol Administration 1,000 UNITS/HR Lactobacillus Acidophilus 1 tab 03/01/18 10:00 03/02/18 10:24 Bacid - PO 1 tab DAILY [facility] Administration Latanoprost 1 drop 02/27/18 22:00 03/01/18 21:05 Xalatan 0.005% Eye Drops - OU 1 drop HS [facility] Administration Levothyroxine Sodium 75 mcg 04/17/18 07:00 03/02/18 06:12 Synthroid - PO Not Given DAILY@0700 [facility] Losartan Potassium 25 mg 03/02/18 10:00 Cozaar - PO DAILY [facility] Pantoprazole Sodium 40 mg 02/28/18 10:00 03/02/18 10:25 Protonix - PO 40 mg DAILY [facility] Administration Polyethylene Glycol 17 gm 02/27/18 22:00 03/02/18 10:24 Miralax (For Daily Use) - PO 17 gm BID [facility] Administration Simethicone 80 mg 02/28/18 16:54 02/28/18 21:15 Mylicon - PO 80 mg Q4H PRN Administration GAS Sotalol HCl 80 mg 03/01/18 22:00 03/02/18 10:24 Betapace - PO 80 mg BID [facility] Administration Timolol Maleate 1 drop 02/27/18 22:00 03/02/18 10:25 Timoptic 0.5% OU 1 drop BID [facility] Administration Warfarin Sodium 1 mg 02/28/18 18:00 03/01/18 17:33 Coumadin - PO 1 mg DAILY@1800 [facility] Administration
[2018-03-02] MEDS: WARFARIN NA 1 MG TABLET (FP) PO SCH (17:52)
[2018-03-02] MEDS: CHOLECALCIFEROL (VITAMIN D3) 400 UNIT TABLET (FP) PO SCH (18:25)
[2018-03-02] MEDS: FUROSEMIDE 40 MG/4 ML INJECTABLE VIAL IVPUSH SCH (18:26)
[2018-03-02] MEDS: SIMETHICONE 80 MG TAB.CHEW (FP) PO PRN (19:30)
[2018-03-02] MEDS: LATANOPROST 0.005% OPHTH SOLN 2.5ML BOTTLE OU SCH (21:47)
[2018-03-02] MEDS: ATORVASTATIN CA 10 MG TABLET (FP) PO SCH (21:47)
[2018-03-03] MEDS: SIMETHICONE 80 MG TAB.CHEW (FP) PO PRN ×2 (03:46→20:07)
[2018-03-03] MEDS: LEVOTHYROXINE NA 75 MCG TABLET (FP) PO SCH (06:26)
[2018-03-03 06:55] LABS: BASO % 0.4 % (0-2.0); EOS % 3.7 % (0-4.5); HEMATOCRIT 31.4 % (32.4-45.2); LYMPH % 15.1 % (8-40); MCH 33.1 pg (25.7-33.7); MEAN CELL VOLUME 94.7 fl (80-96); MEAN PLT VOLUME 10.2 fl (7.5-11.1); MONO % 14.7 % (3.8-10.2); NEUT % 66.1 % (42.8-82.8); PLATELET COUNT 143 K/MM3 (134-434); RBC 3.32 M/mm3 (3.60-5.2); RDW 14.3 % (11.6-15.6); WHITE BLOOD COUNT 5.2 K/mm3 (4.0-10.0)
[2018-03-03 07:07] LABS: ANION GAP 11 (8-16); BLOOD UREA NITROGEN 22 mg/dL (7-18); CALCIUM 8.6 mg/dL (8.5-10.1); CHLORIDE 95 mmol/L (98-107); CO2 28 mmol/L (21-32); CREATININE 0.8 mg/dL (0.55-1.02); GLUCOSE,RANDOM 93 mg/dL (74-106); POTASSIUM 3.7 mmol/L (3.5-5.1); SODIUM 134 mmol/L (136-145)
[2018-03-03 07:11] LABS: INR 1.1 (0.82-1.09); PROTHROMBIN TIME (PATIENT) 12.4 SEC (9.98-11.88)
--- NOTE | 2018-03-03 09:13 | PN ---
Progress Note, Physician Chief Complaint: s/p CARLI CV successful d/w cardiology and GI: pt will eventually need TAVR - to have GI stent removed first, then TAVR (can have transient bacteremia during stent removal which could seed TAVR valve); GI stent can be removed after 4 weeks of AC with coumadin - Current Medication List Current Medications: Active Medications Acetaminophen (Tylenol -) 650 mg PO Q4H PRN PRN Reason: FEVER Atorvastatin Calcium (Lipitor -) 10 mg PO HS [facility] Last Admin: 03/02/18 21:47 Dose: 10 mg Brimonidine Tartrate (Alphagan 0.2% -) 1 drop OU BID [facility] Last Admin: 03/02/18 21:48 Dose: 1 drop Cholecalciferol (Vitamin D3 -) 400 unit PO DAILY [facility] Last Admin: 03/02/18 18:25 Dose: 400 unit Diltiazem HCl (Cardizem Injection -) 10 mg IVPUSH Q4H PRN PRN Reason: TACHYCARDIA Last Admin: 03/01/18 10:59 Dose: 10 mg Dorzolamide HCl (Trusopt 2%) 1 drop OD BID [facility] Last Admin: 03/02/18 21:48 Dose: 1 drop Furosemide (Lasix Injection -) 40 mg IVPUSH DAILY [facility] Last Admin: 03/02/18 18:26 Dose: 40 mg Heparin Sodium (Porcine) (Heparin -) 1,000 unit IVPUSH PRN PRN PRN Reason: Heparin Heparin Sodium (Porcine) (Heparin -) 5,000 unit IVPUSH PRN PRN PRN Reason: Heparin Heparin Sodium/Dextrose (Heparin Infusion -) 25,000 units in 500 mls @ 20 mls/ hr IVPB TITR VALENTINE; 1,000 UNITS/HR PRN Reason: Protocol Last Admin: 03/02/18 10:42 Dose: 1,000 units/hr, 20 mls/hr Lactobacillus Acidophilus (Bacid -) 1 tab PO DAILY [facility] Last Admin: 03/02/18 10:24 Dose: 1 tab Latanoprost (Xalatan 0.005% Eye Drops -) 1 drop OU HS [facility] Last Admin: 03/02/18 21:47 Dose: 1 drop Levothyroxine Sodium (Synthroid -) 75 mcg PO DAILY@0700 [facility] Last Admin: 03/03/18 06:26 Dose: 75 mcg Losartan Potassium (Cozaar -) 25 mg PO DAILY [facility] Last Admin: 03/02/18 10:00 Dose: Not Given Pantoprazole Sodium (Protonix -) 40 mg PO DAILY [facility] Last Admin: 03/02/18 10:25 Dose: 40 mg Polyethylene Glycol (Miralax (For Daily Use) -) 17 gm PO BID [facility] Last Admin: 03/02/18 21:43 Dose: Not Given Simethicone (Mylicon -) 80 mg PO Q4H PRN PRN Reason: GAS Last Admin: 03/03/18 03:46 Dose: 80 mg Sotalol HCl (Betapace -) 80 mg PO BID [facility] Last Admin: 03/02/18 21:47 Dose: 80 mg Timolol Maleate (Timoptic 0.5%) 1 drop OU BID [facility] Last Admin: 03/02/18 21:47 Dose: 1 drop Warfarin Sodium (Coumadin -) 1 mg PO DAILY@1800 [facility] Last Admin: 03/02/18 17:52 Dose: 1 mg - Objective Vital Signs: Vital Signs Temperature 97.5 F L 03/03/18 05:00 Pulse Rate 63 03/03/18 05:00 Respiratory Rate 19 03/03/18 05:00 Blood Pressure 129/79 03/03/18 05:00 O2 Sat by Pulse Oximetry (%) 97 03/02/18 21:00 Constitutional: Yes: No Distress, Calm Eyes: Yes: Conjunctiva Clear HENT: Yes: Atraumatic Neck: Yes: Supple Cardiovascular: Yes: Regular Rate and Rhythm Respiratory: Yes: CTA Bilaterally Gastrointestinal: Yes: Soft. No: Tenderness Genitourinary: No: CVA Tenderness - Left, CVA Tenderness - Right Musculoskeletal: No: Joint Stiffness, Joint Swelling Extremities: No: Cold, Cool, Cyanosis Edema: No Integumentary: No: Rash, Venous Stasis Changes Neurological: Yes: WNL, Alert, Oriented ...Motor Strength: WNL Psychiatric: Yes: WNL, Alert, Oriented. No: Agitated, Suicidal Ideation Labs: CBC, BMP 03/03/18 06:25 03/03/18 06:25 INR, PTT INR 1.10 (0.82-1.09) 03/03/18 06:25 - ....Imaging Other: Report Reviewed Assessment/Plan 87 year old female with pmh CBD stone s/p ERCP s/p stent placement, atrial fibrillation (on Coumadin), Ao Stenosis, HTN, HLD, CAD s/p stents and pacemaker , hypothyroidism, diverticulitis, recurrent UTIs p/w generalized weakness s/p UTI on bactrim. Admitted with general weakness and shortness of breath, urinary retention. Coumadin toxicity Fluid overloaded, RAFib s/p CARLI CV per cardiology cardiology, GI, heme f/u plan d/w pt and daughter: pt needs 4 weeks of AC with coumadin then biliary stent removal with GI then eval for TAVR per cardiology Lea to drain urine; pt has a pacemaker inserted by PT rehab and CM eval for SNF (pt lives alone and expressed wish to go to SNF from [facility]) falls PFX prognosis guarded d/w pt, d/w staff
--- NOTE | 2018-03-03 09:42 | PN ---
Progress Note, Physician History of Present Illness: Remains in SR post CARLI-guided DCCV. Fatigue improved, denies chest pain or dyspnea. - Current Medication List Current Medications: Active Medications Acetaminophen (Tylenol -) 650 mg PO Q4H PRN PRN Reason: FEVER Atorvastatin Calcium (Lipitor -) 10 mg PO HS [facility] Last Admin: 03/02/18 21:47 Dose: 10 mg Brimonidine Tartrate (Alphagan 0.2% -) 1 drop OU BID [facility] Last Admin: 03/02/18 21:48 Dose: 1 drop Cholecalciferol (Vitamin D3 -) 400 unit PO DAILY [facility] Last Admin: 03/02/18 18:25 Dose: 400 unit Diltiazem HCl (Cardizem Injection -) 10 mg IVPUSH Q4H PRN PRN Reason: TACHYCARDIA Last Admin: 03/01/18 10:59 Dose: 10 mg Dorzolamide HCl (Trusopt 2%) 1 drop OD BID [facility] Last Admin: 03/02/18 21:48 Dose: 1 drop Furosemide (Lasix Injection -) 40 mg IVPUSH DAILY [facility] Last Admin: 03/02/18 18:26 Dose: 40 mg Heparin Sodium (Porcine) (Heparin -) 1,000 unit IVPUSH PRN PRN PRN Reason: Heparin Heparin Sodium (Porcine) (Heparin -) 5,000 unit IVPUSH PRN PRN PRN Reason: Heparin Heparin Sodium/Dextrose (Heparin Infusion -) 25,000 units in 500 mls @ 20 mls/ hr IVPB TITR VALENTINE; 1,000 UNITS/HR PRN Reason: Protocol Last Admin: 03/02/18 10:42 Dose: 1,000 units/hr, 20 mls/hr Lactobacillus Acidophilus (Bacid -) 1 tab PO DAILY [facility] Last Admin: 03/02/18 10:24 Dose: 1 tab Latanoprost (Xalatan 0.005% Eye Drops -) 1 drop OU HS [facility] Last Admin: 03/02/18 21:47 Dose: 1 drop Levothyroxine Sodium (Synthroid -) 75 mcg PO DAILY@0700 [facility] Last Admin: 03/03/18 06:26 Dose: 75 mcg Losartan Potassium (Cozaar -) 25 mg PO DAILY [facility] Last Admin: 03/02/18 10:00 Dose: Not Given Pantoprazole Sodium (Protonix -) 40 mg PO DAILY [facility] Last Admin: 03/02/18 10:25 Dose: 40 mg Polyethylene Glycol (Miralax (For Daily Use) -) 17 gm PO BID [facility] Last Admin: 03/02/18 21:43 Dose: Not Given Simethicone (Mylicon -) 80 mg PO Q4H PRN PRN Reason: GAS Last Admin: 03/03/18 03:46 Dose: 80 mg Sotalol HCl (Betapace -) 80 mg PO BID [facility] Last Admin: 03/02/18 21:47 Dose: 80 mg Timolol Maleate (Timoptic 0.5%) 1 drop OU BID [facility] Last Admin: 03/02/18 21:47 Dose: 1 drop Warfarin Sodium (Coumadin -) 1 mg PO DAILY@1800 [facility] Last Admin: 03/02/18 17:52 Dose: 1 mg - Objective Vital Signs: Vital Signs Temperature 97.5 F L 03/03/18 05:00 Pulse Rate 63 03/03/18 05:00 Respiratory Rate 19 03/03/18 05:00 Blood Pressure 129/79 03/03/18 05:00 O2 Sat by Pulse Oximetry (%) 97 03/02/18 21:00 Constitutional: Yes: No Distress, Calm, Thin Neck: Yes: Supple Cardiovascular: Yes: Regular Rate and Rhythm, Murmur (3/6 SM) Respiratory: Yes: Regular, Diminished, On Nasal O2 Gastrointestinal: Yes: Normal Bowel Sounds, Soft Edema: No Labs: CBC, BMP 03/03/18 06:25 03/03/18 06:25 INR, PTT INR 1.10 (0.82-1.09) 03/03/18 06:25 - ....Imaging EKG: Report Reviewed (A-paced @ 62 QTc 472 msec Tele: PAF->SR) Problem List - Problems (1) CHF exacerbation Code(s): I50.9 - HEART FAILURE, UNSPECIFIED Qualifiers: Heart failure type: diastolic Qualified Code(s): I50.33 - Acute on chronic diastolic (congestive) heart failure (2) Coronary artery disease Code(s): I25.10 - ATHSCL HEART DISEASE OF [place] CORONARY ARTERY W/O ANG PCTRS Qualifiers: Coronary Disease-Associated Artery/Lesion type: [place] artery [place] vs. transplanted heart: [place] heart Associated angina: without angina Qualified Code(s): I25.10 - Atherosclerotic heart disease of [place] coronary artery without angina pectoris (3) History of pacemaker Code(s): Z95.0 - PRESENCE OF CARDIAC PACEMAKER (4) Hyperlipidemia Code(s): E78.5 - HYPERLIPIDEMIA, UNSPECIFIED Qualifiers: Hyperlipidemia type: pure hypercholesterolemia Qualified Code(s): E78.00 - Pure hypercholesterolemia, unspecified (5) Hypertension Code(s): I10 - ESSENTIAL (PRIMARY) HYPERTENSION Qualifiers: Hypertension type: essential hypertension Qualified Code(s): I10 - Essential (primary) hypertension (6) Hypothyroidism Code(s): E03.9 - HYPOTHYROIDISM, UNSPECIFIED Qualifiers: Hypothyroidism type: unspecified Qualified Code(s): E03.9 - Hypothyroidism , unspecified (7) Neurocardiogenic syncope Code(s): R55 - SYNCOPE AND COLLAPSE (8) Pacemaker Code(s): Z95.0 - PRESENCE OF CARDIAC PACEMAKER (9) Paroxysmal atrial fibrillation Code(s): I48.0 - PAROXYSMAL ATRIAL FIBRILLATION (10) Hyponatremia Code(s): E87.1 - HYPO-OSMOLALITY AND HYPONATREMIA (11) MGUS (monoclonal gammopathy of unknown significance) Code(s): D47.2 - MONOCLONAL GAMMOPATHY (12) History of cardioversion Code(s): Z98.890 - OTHER SPECIFIED POSTPROCEDURAL STATES (13) Severe aortic stenosis Code(s): I35.0 - NONRHEUMATIC AORTIC (VALVE) STENOSIS Assessment/Plan 03/02/2018 CARLI: Normal LV size and fxn, pacer lead seen in RV, no CLARK thrombus, severe , mod MR, TR 1. Acute on chronic class II NYHA classification LV failure related to diastolic LV dysfunction 2. Moderate-severe aortic valve stenosis 3. Paroxysmal atrial fibrillation now in SR post CARLI-guided DCCV with subtherapeutic INR 4. CAD angina pectoris, stable 5. 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 HTN/HCVD 7. Hyperlipidemia 8. Hypothyroidism 9. Acute on CKD 10. Abdominal pain, left colitis r/o c. diff vs ischemia resolving 11. Retained stones post cholecystectomy with biliary duct dilatation post therapeutic ERCP/sphincterotomy and biliary stent 12. History of schatzki ring dilation 13. MGUS 14. Hyponatremia improving PLAN: 1. Continue IV diuresis with monitoring renal function and electrolytes 2. Antibiotic course 3. Continue Losartan 25 qd with close monitoring of renal function 4. Continue Sotalol 80 mg BID and monitor QTc. Consider CARLI and synchronized cardioversion today 5. Continue Lipitor 10 qhs 6. Continue Heparin->Coumadin with close monitoring of CBC and INR, maintain INR 2-3. Will take some time to achieve therapeutic INR as she received depot shot of vit K in ER. 7. Pacemaker interrogation and TAVR evaluation can be pursued as outpatient
[2018-03-03] MEDS ORDERED: PT OWN MED DRAWER 7, Y5N ONE (10:05)
[2018-03-03] MEDS: FUROSEMIDE 40 MG/4 ML INJECTABLE VIAL IVPUSH SCH (10:08)
[2018-03-03] MEDS: LACTOBACILLUS ACIDOPHILUS 1 TABLET PO SCH (10:09)
[2018-03-03] MEDS: LOSARTAN POTASSIUM 25 MG TABLET PO SCH (10:09)
[2018-03-03] MEDS: CHOLECALCIFEROL (VITAMIN D3) 400 UNIT TABLET (FP) PO SCH (10:09)
[2018-03-03] MEDS: SOTALOL HCL 80 MG TABLET (FP) PO SCH ×2 (10:09→22:17)
[2018-03-03] MEDS: DORZOLAMIDE 2% HCL OPHTHALMIC SOLUTION 10 ML BOTTLE OD SCH ×2 (10:10→22:19)
[2018-03-03] MEDS: TIMOLOL 0.5% OPHTHALMIC SOL 5 ML BOTTLE OU SCH ×2 (10:10→22:19)
[2018-03-03] MEDS: HEPARIN INFUSION - 25,000 UNITS/500 ML INFUS.BAG IVPB SCH ×2 (10:11→20:08)
[2018-03-03] MEDS: PANTOPRAZOLE 40 MG TABLET (FP) PO SCH (10:12)
[2018-03-03] MEDS: POLYETHYLENE GLYCOL 3350 119 GM BTL PO SCH ×2 (10:12→22:24)
[2018-03-03] MEDS: BRIMONIDINE TARTRATE 0.2% OPHTHALMIC 5 ML BOTTLE OU SCH ×2 (10:22→22:18)
--- NOTE | 2018-03-03 16:31 | PN ---
GI Progress Note Subjective: GI NOte: Crampy abdominal pain persists despite having had 2 BMs today. No vomiting. After having spoken with the cardiology team I have told Chyna that we will delay her ERCP for 4 weeks so as not to interrupt her anticoagulation following cardioversion. The ERCP however needs to be done prior to TAVR as it is not uncommon to have bacteremia during stone extraction that could lead to endocarditis. I have told Chyna to call my office after discharge to set it up. Stool cultures as well as C diif and stool for WBCs are negative arguing against an infectious etiology. - Objective Vital Signs: Vital Signs Temperature 97.6 F 03/03/18 14:00 Pulse Rate 68 03/03/18 14:00 Respiratory Rate 18 03/03/18 14:00 Blood Pressure 139/88 03/03/18 14:00 O2 Sat by Pulse Oximetry (%) 97 03/03/18 09:00 Constitutional: Anxious Gastrointestinal Inspection: Yes: Distention ...Auscultate: Yes: Hypoactive Bowel Sounds ...Palpate: Yes: Soft, Other (nontender) ...Percussion: Yes: Tympanitic Labs: CBC, BMP 03/03/18 06:25 03/03/18 06:25 INR, PTT INR 1.10 (0.82-1.09) 03/03/18 06:25 Problem List - Problems (1) Diarrhea Assessment/Plan: Paradoxical diarrhea that disappears when Miralax is stopped. Would give Miralax at least once daily. Code(s): R19.7 - DIARRHEA, UNSPECIFIED (2) Bile duct calculus Assessment/Plan: ERCP deferred for 4 weeks as per cardiology discussion, yesterday with Dr Willoughby and today with Dr Mccord. Code(s): K80.50 - CALCULUS OF BILE DUCT W/O CHOLANGITIS OR CHOLECYST W/O OBST Qualifiers: Cholecystitis presence: without cholecystitis Biliary obstruction: with biliary obstruction Qualified Code(s): K80.51 - Calculus of bile duct without cholangitis or cholecystitis with obstruction (3) Lower esophageal ring (Schatzki) Code(s): K22.2 - ESOPHAGEAL OBSTRUCTION
[2018-03-03] MEDS: WARFARIN NA 2 MG TABLET (UD) PO SCH (18:20)
[2018-03-03] MEDS: ATORVASTATIN CA 10 MG TABLET (FP) PO SCH (22:17)
[2018-03-03] MEDS: LATANOPROST 0.005% OPHTH SOLN 2.5ML BOTTLE OU SCH (22:19)
[2018-03-04] MEDS: SIMETHICONE 80 MG TAB.CHEW (FP) PO PRN ×3 (01:50→18:48)
[2018-03-04] MEDS: LEVOTHYROXINE NA 75 MCG TABLET (FP) PO SCH (06:02)
--- NOTE | 2018-03-04 06:54 | PN ---
Progress Note, Physician Chief Complaint: in bed NAD no new c/o - Current Medication List Current Medications: Active Medications Acetaminophen (Tylenol -) 650 mg PO Q4H PRN PRN Reason: FEVER Atorvastatin Calcium (Lipitor -) 10 mg PO HS [facility] Last Admin: 03/03/18 22:17 Dose: 10 mg Brimonidine Tartrate (Alphagan 0.2% -) 1 drop OU BID [facility] Last Admin: 03/03/18 22:18 Dose: 1 drop Cholecalciferol (Vitamin D3 -) 400 unit PO DAILY [facility] Last Admin: 03/03/18 10:09 Dose: 400 unit Diltiazem HCl (Cardizem Injection -) 10 mg IVPUSH Q4H PRN PRN Reason: TACHYCARDIA Last Admin: 03/01/18 10:59 Dose: 10 mg Dorzolamide HCl (Trusopt 2%) 1 drop OD BID [facility] Last Admin: 03/03/18 22:19 Dose: 1 drop Furosemide (Lasix Injection -) 40 mg IVPUSH DAILY [facility] Last Admin: 03/03/18 10:08 Dose: 40 mg Heparin Sodium (Porcine) (Heparin -) 1,000 unit IVPUSH PRN PRN PRN Reason: Heparin Heparin Sodium (Porcine) (Heparin -) 5,000 unit IVPUSH PRN PRN PRN Reason: Heparin Heparin Sodium/Dextrose (Heparin Infusion -) 25,000 units in 500 mls @ 20 mls/ hr IVPB TITR VALENTINE; 1,000 UNITS/HR PRN Reason: Protocol Last Admin: 03/03/18 20:08 Dose: 950 units/hr, 19 mls/hr Lactobacillus Acidophilus (Bacid -) 1 tab PO DAILY [facility] Last Admin: 03/03/18 10:09 Dose: 1 tab Latanoprost (Xalatan 0.005% Eye Drops -) 1 drop OU HS [facility] Last Admin: 03/03/18 22:19 Dose: 1 drop Levothyroxine Sodium (Synthroid -) 75 mcg PO DAILY@0700 [facility] Last Admin: 03/04/18 06:02 Dose: 75 mcg Losartan Potassium (Cozaar -) 25 mg PO DAILY [facility] Last Admin: 03/03/18 10:09 Dose: 25 mg Pantoprazole Sodium (Protonix -) 40 mg PO DAILY [facility] Last Admin: 03/03/18 10:12 Dose: 40 mg Polyethylene Glycol (Miralax (For Daily Use) -) 17 gm PO BID [facility] Last Admin: 03/03/18 22:24 Dose: Not Given Simethicone (Mylicon -) 80 mg PO Q4H PRN PRN Reason: GAS Last Admin: 03/04/18 01:50 Dose: 80 mg Sotalol HCl (Betapace -) 80 mg PO BID [facility] Last Admin: 03/03/18 22:17 Dose: 80 mg Timolol Maleate (Timoptic 0.5%) 1 drop OU BID [facility] Last Admin: 03/03/18 22:19 Dose: 1 drop Warfarin Sodium (Coumadin -) 2 mg PO DAILY@1800 [facility] Last Admin: 03/03/18 18:20 Dose: 2 mg - Objective Vital Signs: Vital Signs Temperature 97.6 F 03/04/18 06:00 Pulse Rate 67 03/04/18 06:00 Respiratory Rate 16 03/04/18 06:00 Blood Pressure 115/75 03/04/18 06:00 O2 Sat by Pulse Oximetry (%) 95 03/03/18 21:00 Constitutional: Yes: No Distress, Calm Eyes: Yes: Conjunctiva Clear HENT: Yes: Atraumatic Neck: Yes: Supple Cardiovascular: Yes: Regular Rate and Rhythm Respiratory: Yes: CTA Bilaterally Gastrointestinal: Yes: Soft. No: Tenderness Genitourinary: No: CVA Tenderness - Left, CVA Tenderness - Right Musculoskeletal: No: Joint Stiffness, Joint Swelling Extremities: No: Cold, Cool Edema: No Integumentary: No: Rash, Venous Stasis Changes Neurological: Yes: WNL, Alert, Oriented ...Motor Strength: WNL Psychiatric: Yes: WNL, Alert, Oriented. No: Agitated, Suicidal Ideation Labs: CBC, BMP 03/03/18 06:25 03/03/18 06:25 INR, PTT INR 1.10 (0.82-1.09) 03/03/18 06:25 - ....Imaging Other: Report Reviewed Assessment/Plan 87 year old female with pmh CBD stone s/p ERCP s/p stent placement, atrial fibrillation (on Coumadin), Ao Stenosis, HTN, HLD, CAD s/p stents and pacemaker , hypothyroidism, diverticulitis, recurrent UTIs p/w generalized weakness s/p UTI on bactrim. Admitted with general weakness and shortness of breath, urinary retention. Coumadin toxicity Fluid overloaded, RAFib s/p CARLI CV per cardiology cardiology, GI, heme f/u plan as outlined before Lea removed, check for urinary retention PT rehab and CM eval for SNF (pt lives alone and expressed wish to go to SNF from [facility]) falls PFX prognosis guarded d/w pt, d/w staff
[2018-03-04 08:01] LABS: HEMATOCRIT 30.3 % (32.4-45.2); HEMOGLOBIN 10.5 GM/dL (10.7-15.3); MCH 32.6 pg (25.7-33.7); MCHC 34.5 g/dl (32.0-36.0); MEAN CELL VOLUME 94.6 fl (80-96); MEAN PLT VOLUME 9.5 fl (7.5-11.1); PLATELET COUNT 129 K/MM3 (134-434); RBC 3.21 M/mm3 (3.60-5.2); RDW 14.2 % (11.6-15.6); WHITE BLOOD COUNT 6.5 K/mm3 (4.0-10.0)
[2018-03-04 08:07] LABS: INR 1.12 (0.82-1.09); PROTHROMBIN TIME (PATIENT) 12.7 SEC (9.98-11.88)
[2018-03-04 08:17] LABS: ANION GAP 9 (8-16); BLOOD UREA NITROGEN 15 mg/dL (7-18); CHLORIDE 95 mmol/L (98-107); CO2 30 mmol/L (21-32); CREATININE 0.5 mg/dL (0.55-1.02); GLUCOSE,RANDOM 92 mg/dL (74-106); POTASSIUM 3.7 mmol/L (3.5-5.1); SODIUM 134 mmol/L (136-145)
--- NOTE | 2018-03-04 08:49 | EKG ---
Test Reason : Blood Pressure : / mmHG Vent. Rate : 067 BPM Atrial Rate : 681 BPM P-R Int : 000 ms QRS Dur : 100 ms QT Int : 454 ms P-R-T Axes : 000 -09 -08 degrees QTc Int : 479 ms Atrial-paced rhythm with prolonged AV conduction T WAVE ABNORMALITY, CONSIDER ANTERIOR ISCHEMIA PROLONGED QT ABNORMAL ECG WHEN COMPARED WITH ECG OF 02-MAR-2018 12:23, T WAVE INVERSION NOW EVIDENT IN ANTERIOR LEADS Confirmed by TONYA MONTIEL, SARY ([id number]) on 03/04/2018 8:49:21 AM [facility] Confirmed By:SARY CASTANEDA MD
[2018-03-04] MEDS: LACTOBACILLUS ACIDOPHILUS 1 TABLET PO SCH (09:02)
[2018-03-04] MEDS: BRIMONIDINE TARTRATE 0.2% OPHTHALMIC 5 ML BOTTLE OU SCH ×2 (09:02→21:50)
[2018-03-04] MEDS: LOSARTAN POTASSIUM 25 MG TABLET PO SCH (09:03)
[2018-03-04] MEDS: FUROSEMIDE 40 MG/4 ML INJECTABLE VIAL IVPUSH SCH (09:03)
[2018-03-04] MEDS: SOTALOL HCL 80 MG TABLET (FP) PO SCH ×2 (09:03→21:49)
[2018-03-04] MEDS: PANTOPRAZOLE 40 MG TABLET (FP) PO SCH (09:03)
[2018-03-04] MEDS: POLYETHYLENE GLYCOL 3350 119 GM BTL PO SCH ×2 (09:03→22:00)
[2018-03-04] MEDS: TIMOLOL 0.5% OPHTHALMIC SOL 5 ML BOTTLE OU SCH ×2 (09:04→21:49)
[2018-03-04] MEDS: DORZOLAMIDE 2% HCL OPHTHALMIC SOLUTION 10 ML BOTTLE OD SCH ×2 (09:04→21:50)
[2018-03-04] MEDS: CHOLECALCIFEROL (VITAMIN D3) 400 UNIT TABLET (FP) PO SCH (09:04)
--- NOTE | 2018-03-04 11:19 | PN ---
Progress Note (short form) - Note Progress Note: Chief Complaint: Events noted, notes reviewed, dyspnea improved, denies any chest pain, continues to report lower abdominal discomfort and abdominal distention, sinus rhythm is persistent post cardioversion History of Present Illness: Seen and examined on telemetry. Events noted, notes reviewed, dyspnea improved, denies any chest pain, continues to report lower abdominal discomfort and abdominal distention, sinus rhythm is persistent post cardioversion As per my conversation with patient, her daughter plan to D/C home on A/C with Coumadin for at least 3-4 weeks and then proceed with planned GI procedure/ERCP for management of retained stone, and then plan tp proceed with possible TAVR for management of her severe symptomatic . Above was also discussed with Dr. Sindy Caputo Echocardiography 01/06/2018 revealed normal LV size with mild LVH normal LV function, abnormal LV compliance, moderate-severe aortic valve stenosis with MG 32 mmHg, RUBY 0.7 cm^2, mild AR, mildly dilated aortic root, moderate MR, TR, mild NC, RVSP 40 mmHg Medications: Current Medications Acetaminophen (Tylenol -) 650 mg PO Q4H PRN PRN Reason: FEVER Atorvastatin Calcium (Lipitor -) 10 mg PO HS [facility] Last Admin: 03/03/18 22:17 Dose: 10 mg Brimonidine Tartrate (Alphagan 0.2% -) 1 drop OU BID [facility] Last Admin: 03/04/18 09:02 Dose: 1 drop Cholecalciferol (Vitamin D3 -) 400 unit PO DAILY [facility] Last Admin: 03/04/18 09:04 Dose: 400 unit Diltiazem HCl (Cardizem Injection -) 10 mg IVPUSH Q4H PRN PRN Reason: TACHYCARDIA Last Admin: 03/01/18 10:59 Dose: 10 mg Dorzolamide HCl (Trusopt 2%) 1 drop OD BID [facility] Last Admin: 03/04/18 09:04 Dose: 1 drop Furosemide (Lasix Injection -) 40 mg IVPUSH DAILY [facility] Last Admin: 03/04/18 09:03 Dose: 40 mg Heparin Sodium (Porcine) (Heparin -) 1,000 unit IVPUSH PRN PRN PRN Reason: Heparin Heparin Sodium (Porcine) (Heparin -) 5,000 unit IVPUSH PRN PRN PRN Reason: Heparin Heparin Sodium/Dextrose (Heparin Infusion -) 25,000 units in 500 mls @ 20 mls/ hr IVPB TITR VALENTINE; 1,000 UNITS/HR PRN Reason: Protocol Last Admin: 03/03/18 20:08 Dose: 950 units/hr, 19 mls/hr Lactobacillus Acidophilus (Bacid -) 1 tab PO DAILY [facility] Last Admin: 03/04/18 09:02 Dose: 1 tab Latanoprost (Xalatan 0.005% Eye Drops -) 1 drop OU HS [facility] Last Admin: 03/03/18 22:19 Dose: 1 drop Levothyroxine Sodium (Synthroid -) 75 mcg PO DAILY@0700 [facility] Last Admin: 03/04/18 06:02 Dose: 75 mcg Losartan Potassium (Cozaar -) 25 mg PO DAILY [facility] Last Admin: 03/04/18 09:03 Dose: 25 mg Pantoprazole Sodium (Protonix -) 40 mg PO DAILY [facility] Last Admin: 03/04/18 09:03 Dose: 40 mg Polyethylene Glycol (Miralax (For Daily Use) -) 17 gm PO BID [facility] Last Admin: 03/04/18 09:03 Dose: 17 gm Simethicone (Mylicon -) 80 mg PO Q4H PRN PRN Reason: GAS Last Admin: 03/04/18 09:09 Dose: 80 mg Sotalol HCl (Betapace -) 80 mg PO BID [facility] Last Admin: 03/04/18 09:03 Dose: 80 mg Timolol Maleate (Timoptic 0.5%) 1 drop OU BID [facility] Last Admin: 03/04/18 09:04 Dose: 1 drop Warfarin Sodium (Coumadin -) 2 mg PO DAILY@1800 [facility] Last Admin: 03/03/18 18:20 Dose: 2 mg Review of Systems - Review of Systems Constitutional: no symptoms reported Respiratory: Denies: Cough or Sputum Production Cardiovascular: As noted above Gastrointestinal: denies Nausea, Vomiting, Diarrhea, Constipation but reports Lower Abdominal Pain and Distention Genitourinary: No symptoms reported Musculoskeletal: Degenerative Joint Disease Endocrine: No symptoms reported Vital Signs: Last Vital Signs Temp Pulse Resp BP Pulse Ox 98 F 70 18 112/70 97 03/04/18 09:00 03/04/18 09:00 03/04/18 09:00 03/04/18 09:00 03/04/18 09:00 Intake & Output 0403/02/18 03/03/18 03/04/18 23:59 23:59 23:59 23:59 Intake Total 620 850 882 Output Total 1000 2000 275 Balance -380 -1150 607 Constitutional: No Distress, Calm Neck: Supple Negative JVD Respiratory: Diminished Breath Sounds at the Bases Bilaterally Cardiovascular: S1 S2 Regular Rate Rhythm Grade 2-3/6 ELIZABETH Gastrointestinal: Soft Benign Normal Bowel Sounds Ext: No Edema Labs: CBC, BMP 03/04/18 06:00 03/04/18 06:00 INR, PTT INR 1.12 (0.82-1.09) 03/04/18 06:00 Assessment/Plan ASSESSMENT: 1. Acute on chronic class II NYHA classification LV failure related to diastolic LV dysfunction, resolving 2. Moderate-severe aortic valve stenosis 3. Paroxysmal atrial fibrillation currently in sinur rhythm post cardioversion with sub-therapeutic INR, [id number] score of 6 4. CAD angina pectoris, stable 5. 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 HTN/HCVD 7. Hyperlipidemia 8. Hypothyroidism 9. CKD with acute renal insufficiency, resolved 10. Abdominal pain, persisting 11. Retained stones post cholecystectomy with biliary duct dilatation post therapeutic ERCP/sphincterotomy and biliary stent for stent extraction 12. Anemia and thrombocytopenia PLAN: 1. Continue Losartan with close monitoring of renal function 2. Continue Betapace with close monitoring of QTc 3. Continue Lipitor 4. Continue Heparin bridging and Coumadin with caution and close monitoring of CBC and INR, maintain INR 2-3 5. Continue Lasix but change to PO 6. As outlined above in reference to management of her , to be deferred pending completion of her GI intervention/procedure Murray Willoughby M.D.
[2018-03-04] MEDS: HEPARIN INFUSION - 25,000 UNITS/500 ML INFUS.BAG IVPB SCH (13:08)
[2018-03-04] MEDS: WARFARIN NA 2 MG TABLET (UD) PO SCH (17:32)
[2018-03-04] MEDS ORDERED: PT OWN MED DRAWER 7, Y5N ONE (20:22)
[2018-03-04] MEDS: ATORVASTATIN CA 10 MG TABLET (FP) PO SCH (21:49)
[2018-03-04] MEDS: LATANOPROST 0.005% OPHTH SOLN 2.5ML BOTTLE OU SCH (21:50)
--- NOTE | 2018-03-04 23:37 | PN ---
Progress Note (short form) - Note Progress Note: Patient demetrius nd examined Denies any complaints AFVSS Cor: RSR, No murmurs, No gallops Lungs: Clear to P&A Abd: Soft, Normal bowel sounds, No organomegaly Ext:No significant edema Labs/MEds reviewed A/P Acute on chronic class II NYHA classification LV failure related to diastolic LV dysfunction, resolving 2. Moderate-severe aortic valve stenosis 3. Paroxysmal atrial fibrillation currently in sinus rhythm post cardioversion with sub-therapeutic INR, [id number] score of 6 4. CAD angina pectoris, stable 5. 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 HTN/HCVD 7. Hyperlipidemia 8. Hypothyroidism 9. CKD with acute renal insufficiency, resolved 10. Abdominal pain, resolving 11. Retained stones post cholecystectomy with biliary duct dilatation post therapeutic ERCP/sphincterotomy and biliary stent for stent extraction 12. Anemia and thrombocytopenia Afib: on coumadin Supra-therapeutic INR resolved. now 1.22 bridging heparin to coumadin smolderingMM/MM: SFLCA -- 98 closeto 100 /free k 798 no evidence of endorgan disease in kidneys. calcium nl counts acceptable ? check skeleta survey needs close follow up outpatient as approaching impending active myeloma
[2018-03-05 00:07] LABS: FREE KAPPA,SERUM 728.9 mg/L (3.3-19.4)
[2018-03-05] MEDS: HEPARIN INFUSION - 25,000 UNITS/500 ML INFUS.BAG IVPB SCH ×2 (04:24→17:20)
[2018-03-05] MEDS: SIMETHICONE 80 MG TAB.CHEW (FP) PO PRN ×3 (05:09→20:57)
--- NOTE | 2018-03-05 06:10 | PN ---
Progress Note, Physician Chief Complaint: no new c/o on IV heparin and po coumadin awaiting INR therapeutic for DC planning - Current Medication List Current Medications: Active Medications Acetaminophen (Tylenol -) 650 mg PO Q4H PRN PRN Reason: FEVER Atorvastatin Calcium (Lipitor -) 10 mg PO HS [facility] Last Admin: 03/04/18 21:49 Dose: 10 mg Brimonidine Tartrate (Alphagan 0.2% -) 1 drop OU BID [facility] Last Admin: 03/04/18 21:50 Dose: 1 drop Cholecalciferol (Vitamin D3 -) 400 unit PO DAILY [facility] Last Admin: 03/04/18 09:04 Dose: 400 unit Diltiazem HCl (Cardizem Injection -) 10 mg IVPUSH Q4H PRN PRN Reason: TACHYCARDIA Last Admin: 03/01/18 10:59 Dose: 10 mg Dorzolamide HCl (Trusopt 2%) 1 drop OD BID [facility] Last Admin: 03/04/18 21:50 Dose: 1 drop Furosemide (Lasix Injection -) 40 mg IVPUSH DAILY [facility] Last Admin: 03/04/18 09:03 Dose: 40 mg Heparin Sodium (Porcine) (Heparin -) 1,000 unit IVPUSH PRN PRN PRN Reason: Heparin Heparin Sodium (Porcine) (Heparin -) 5,000 unit IVPUSH PRN PRN PRN Reason: Heparin Heparin Sodium/Dextrose (Heparin Infusion -) 25,000 units in 500 mls @ 20 mls/ hr IVPB TITR [facility]; 1,000 UNITS/HR PRN Reason: Protocol Last Admin: 03/05/18 04:24 Dose: 950 units/hr, 19 mls/hr Lactobacillus Acidophilus (Bacid -) 1 tab PO DAILY [facility] Last Admin: 03/04/18 09:02 Dose: 1 tab Latanoprost (Xalatan 0.005% Eye Drops -) 1 drop OU HS [facility] Last Admin: 03/04/18 21:50 Dose: 1 drop Levothyroxine Sodium (Synthroid -) 75 mcg PO DAILY@0700 [facility] Last Admin: 03/04/18 06:02 Dose: 75 mcg Losartan Potassium (Cozaar -) 25 mg PO DAILY [facility] Last Admin: 03/04/18 09:03 Dose: 25 mg Pantoprazole Sodium (Protonix -) 40 mg PO DAILY [facility] Last Admin: 03/04/18 09:03 Dose: 40 mg Polyethylene Glycol (Miralax (For Daily Use) -) 17 gm PO BID [facility] Last Admin: 03/04/18 22:00 Dose: 17 gm Simethicone (Mylicon -) 80 mg PO Q4H PRN PRN Reason: GAS Last Admin: 03/05/18 05:09 Dose: 80 mg Sotalol HCl (Betapace -) 80 mg PO BID [facility] Last Admin: 03/04/18 21:49 Dose: 80 mg Timolol Maleate (Timoptic 0.5%) 1 drop OU BID [facility] Last Admin: 03/04/18 21:49 Dose: 1 drop Warfarin Sodium (Coumadin -) 2 mg PO DAILY@1800 [facility] Last Admin: 03/04/18 17:32 Dose: 2 mg - Objective Vital Signs: Vital Signs Temperature 98.9 F 03/05/18 05:10 Pulse Rate 67 03/05/18 05:10 Respiratory Rate 17 03/05/18 05:10 Blood Pressure 122/76 03/05/18 05:10 O2 Sat by Pulse Oximetry (%) 92 L 03/04/18 21:00 Constitutional: Yes: No Distress, Calm Eyes: Yes: Conjunctiva Clear HENT: Yes: Atraumatic Neck: Yes: Supple Cardiovascular: Yes: Regular Rate and Rhythm Respiratory: Yes: CTA Bilaterally Gastrointestinal: Yes: Soft. No: Tenderness Genitourinary: No: CVA Tenderness - Left, CVA Tenderness - Right Musculoskeletal: No: Joint Stiffness, Joint Swelling Extremities: No: Cold, Cool Edema: No Integumentary: No: Rash, Venous Stasis Changes Neurological: Yes: WNL, Alert, Oriented ...Motor Strength: WNL Psychiatric: Yes: WNL, Alert, Oriented. No: Agitated, Suicidal Ideation Labs: CBC, BMP 03/04/18 06:00 03/04/18 06:00 INR, PTT INR 1.12 (0.82-1.09) 03/04/18 06:00 - ....Imaging Other: Report Reviewed Assessment/Plan 87 year old female with pmh CBD stone s/p ERCP s/p stent placement, atrial fibrillation (on Coumadin), Ao Stenosis, HTN, HLD, CAD s/p stents and pacemaker , hypothyroidism, diverticulitis, recurrent UTIs p/w generalized weakness s/p UTI on bactrim. Admitted with general weakness and shortness of breath, urinary retention. Coumadin toxicity Fluid overloaded, RAFib s/p CARLI CV per cardiology IV heparin and po coumadin for aim INR 2-3 cardiology, GI, heme f/u plan as outlined before Lea removed, f/u for urinary retention PT rehab and CM eval for SNF falls PFX prognosis guarded d/w pt, d/w staff
[2018-03-05] MEDS: LEVOTHYROXINE NA 75 MCG TABLET (FP) PO SCH (06:16)
[2018-03-05] MEDS ORDERED: PT OWN MED DRAWER 7, Y5N ONE (06:24)
[2018-03-05 07:53] LABS: BASO % 0.9 % (0-2.0); EOS % 6.1 % (0-4.5); HEMATOCRIT 29.5 % (32.4-45.2); LYMPH % 17.8 % (8-40); MCH 32.1 pg (25.7-33.7); MCHC 34.1 g/dl (32.0-36.0); MEAN CELL VOLUME 94.1 fl (80-96); MEAN PLT VOLUME 9.2 fl (7.5-11.1); MONO % 15.6 % (3.8-10.2); NEUT % 59.6 % (42.8-82.8); PLATELET COUNT 137 K/MM3 (134-434); RBC 3.13 M/mm3 (3.60-5.2); RDW 14.3 % (11.6-15.6); WHITE BLOOD COUNT 5.8 K/mm3 (4.0-10.0)
[2018-03-05 08:15] LABS: INR 1.22 (0.82-1.09); PROTHROMBIN TIME (PATIENT) 13.8 SEC (9.98-11.88)
[2018-03-05 08:28] LABS: ANION GAP 11 (8-16); BLOOD UREA NITROGEN 13 mg/dL (7-18); CALCIUM 8.9 mg/dL (8.5-10.1); CHLORIDE 95 mmol/L (98-107); CO2 31 mmol/L (21-32); CREATININE 0.5 mg/dL (0.55-1.02); GLUCOSE,RANDOM 81 mg/dL (74-106); POTASSIUM 3.8 mmol/L (3.5-5.1); SODIUM 137 mmol/L (136-145)
[2018-03-05] MEDS: TIMOLOL 0.5% OPHTHALMIC SOL 5 ML BOTTLE OU SCH ×2 (09:04→20:59)
[2018-03-05] MEDS: DORZOLAMIDE 2% HCL OPHTHALMIC SOLUTION 10 ML BOTTLE OD SCH ×2 (09:05→21:00)
[2018-03-05] MEDS: PANTOPRAZOLE 40 MG TABLET (FP) PO SCH (09:06)
[2018-03-05] MEDS: FUROSEMIDE 40 MG/4 ML INJECTABLE VIAL IVPUSH SCH (09:06)
[2018-03-05] MEDS: LOSARTAN POTASSIUM 25 MG TABLET PO SCH (09:06)
[2018-03-05] MEDS: SOTALOL HCL 80 MG TABLET (FP) PO SCH ×2 (09:06→20:59)
[2018-03-05] MEDS: LACTOBACILLUS ACIDOPHILUS 1 TABLET PO SCH (09:06)
[2018-03-05] MEDS: CHOLECALCIFEROL (VITAMIN D3) 400 UNIT TABLET (FP) PO SCH (09:08)
[2018-03-05] MEDS: POLYETHYLENE GLYCOL 3350 119 GM BTL PO SCH ×2 (09:08→21:36)
[2018-03-05] MEDS: BRIMONIDINE TARTRATE 0.2% OPHTHALMIC 5 ML BOTTLE OU SCH ×2 (09:09→21:35)
--- NOTE | 2018-03-05 10:05 | PN ---
Progress Note (short form) - Note Progress Note: Chief Complaint: Events noted, notes reviewed, dyspnea continues to improve, denies any chest pain, lower abdominal discomfort and abdominal distention improved, overall feels better, sinus rhythm is persistent post cardioversion History of Present Illness: Seen and examined on telemetry. Events noted, notes reviewed, dyspnea continues to improve, denies any chest pain, lower abdominal discomfort and abdominal distention improved, overall feels better, sinus rhythm is persistent post cardioversion As per my conversation with patient, her daughter plan to D/C home on A/C with Coumadin for at least 3-4 weeks and then proceed with planned GI procedure/ERCP for management of retained stone, and then plan tp proceed with possible TAVR for management of her severe symptomatic . Echocardiography 01/06/2018 revealed normal LV size with mild LVH normal LV function, abnormal LV compliance, moderate-severe aortic valve stenosis with MG 32 mmHg, RUBY 0.7 cm^2, mild AR, mildly dilated aortic root, moderate MR, TR, mild CT, RVSP 40 mmHg Medications: Current Medications Acetaminophen (Tylenol -) 650 mg PO Q4H PRN PRN Reason: FEVER Atorvastatin Calcium (Lipitor -) 10 mg PO HS [facility] Last Admin: 03/04/18 21:49 Dose: 10 mg Brimonidine Tartrate (Alphagan 0.2% -) 1 drop OU BID [facility] Last Admin: 03/05/18 09:09 Dose: 1 drop Cholecalciferol (Vitamin D3 -) 400 unit PO DAILY [facility] Last Admin: 03/05/18 09:08 Dose: 400 unit Diltiazem HCl (Cardizem Injection -) 10 mg IVPUSH Q4H PRN PRN Reason: TACHYCARDIA Last Admin: 03/01/18 10:59 Dose: 10 mg Dorzolamide HCl (Trusopt 2%) 1 drop OD BID [facility] Last Admin: 03/05/18 09:05 Dose: 1 drop Furosemide (Lasix Injection -) 40 mg IVPUSH DAILY [facility] Last Admin: 03/05/18 09:06 Dose: 40 mg Heparin Sodium (Porcine) (Heparin -) 1,000 unit IVPUSH PRN PRN PRN Reason: Heparin Heparin Sodium (Porcine) (Heparin -) 5,000 unit IVPUSH PRN PRN PRN Reason: Heparin Heparin Sodium/Dextrose (Heparin Infusion -) 25,000 units in 500 mls @ 20 mls/ hr IVPB TITR [facility]; 1,000 UNITS/HR PRN Reason: Protocol Last Admin: 03/05/18 04:24 Dose: 950 units/hr, 19 mls/hr Lactobacillus Acidophilus (Bacid -) 1 tab PO DAILY [facility] Last Admin: 03/05/18 09:06 Dose: 1 tab Latanoprost (Xalatan 0.005% Eye Drops -) 1 drop OU HS [facility] Last Admin: 03/04/18 21:50 Dose: 1 drop Levothyroxine Sodium (Synthroid -) 75 mcg PO DAILY@0700 [facility] Last Admin: 03/05/18 06:16 Dose: 75 mcg Losartan Potassium (Cozaar -) 25 mg PO DAILY [facility] Last Admin: 03/05/18 09:06 Dose: 25 mg Pantoprazole Sodium (Protonix -) 40 mg PO DAILY [facility] Last Admin: 03/05/18 09:06 Dose: 40 mg Polyethylene Glycol (Miralax (For Daily Use) -) 17 gm PO BID [facility] Last Admin: 03/05/18 09:08 Dose: 17 gm Simethicone (Mylicon -) 80 mg PO Q4H PRN PRN Reason: GAS Last Admin: 03/05/18 09:06 Dose: 80 mg Sotalol HCl (Betapace -) 80 mg PO BID [facility] Last Admin: 03/05/18 09:06 Dose: 80 mg Timolol Maleate (Timoptic 0.5%) 1 drop OU BID [facility] Last Admin: 03/05/18 09:04 Dose: 1 drop Warfarin Sodium (Coumadin -) 2 mg PO DAILY@1800 [facility] Last Admin: 03/04/18 17:32 Dose: 2 mg Review of Systems - Review of Systems Constitutional: no symptoms reported Respiratory: Denies: Cough or Sputum Production Cardiovascular: As noted above Gastrointestinal: denies Nausea, Vomiting, Diarrhea or Constipation Genitourinary: No symptoms reported Musculoskeletal: Degenerative Joint Disease Endocrine: No symptoms reported Vital Signs: Last Vital Signs Temp Pulse Resp BP Pulse Ox 98 F 74 18 126/70 97 03/05/18 09:00 03/05/18 09:00 03/05/18 09:00 03/05/18 09:00 03/05/18 09:00 Intake & Output 03/02/18 03/03/18 03/04/18 03/05/18 23:59 23:59 23:59 23:59 Intake Total 850 882 228 418 Output Total 2000 275 Balance -1150 607 228 418 Constitutional: No Distress, Calm Neck: Supple Negative JVD Respiratory: Diminished Breath Sounds at the Bases Bilaterally Cardiovascular: S1 S2 Regular Rate Rhythm Grade 2-3/6 ELIZABETH Gastrointestinal: Soft Benign Normal Bowel Sounds Ext: No Edema Labs: CBC, BMP 03/05/18 06:00 03/05/18 06:00 Hepatic Panel Total Bilirubin 0.6 mg/dL (0.2-1.0) D 03/02/18 06:40 AST 18 U/L (15-37) 03/02/18 06:40 ALT 18 U/L (12-78) 03/02/18 06:40 Alkaline Phosphatase 89 U/L (45-117) 03/02/18 06:40 Albumin 2.7 g/dl (3.4-5.0) L 03/02/18 06:40 INR, PTT INR 1.22 (0.82-1.09) H 03/05/18 06:00 Assessment/Plan ASSESSMENT: 1. Acute on chronic class II NYHA classification LV failure related to diastolic LV dysfunction, resolving 2. Moderate-severe aortic valve stenosis 3. Paroxysmal atrial fibrillation currently in sinus rhythm post cardioversion with sub-therapeutic INR, [id number] score of 6 4. CAD angina pectoris, stable 5. 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 HTN/HCVD 7. Hyperlipidemia 8. Hypothyroidism 9. CKD with acute renal insufficiency, resolved 10. Abdominal pain, resolving 11. Retained stones post cholecystectomy with biliary duct dilatation post therapeutic ERCP/sphincterotomy and biliary stent for stent extraction 12. Anemia and thrombocytopenia (resolved) PLAN: 1. Continue Losartan with close monitoring of renal function 2. Continue Betapace with close monitoring of QTc 3. Continue Lipitor 4. Continue Heparin bridging and Coumadin with caution and close monitoring of CBC and INR, maintain INR 2-3 5. Continue Lasix but change to PO 6. As outlined above in reference to management of her , to be deferred pending completion of her GI intervention/procedure Murray Willoughby M.D.
[2018-03-05] MEDS: WARFARIN NA 2 MG TABLET (UD) PO SCH (17:21)
[2018-03-05] MEDS: ATORVASTATIN CA 10 MG TABLET (FP) PO SCH (20:59)
[2018-03-05] MEDS: LATANOPROST 0.005% OPHTH SOLN 2.5ML BOTTLE OU SCH (20:59)
[2018-03-06] MEDS: LEVOTHYROXINE NA 75 MCG TABLET (FP) PO SCH (06:15)
[2018-03-06] MEDS: SIMETHICONE 80 MG TAB.CHEW (FP) PO PRN ×3 (06:16→21:26)
--- NOTE | 2018-03-06 06:39 | PN ---
Progress Note, Physician Chief Complaint: had some lower abdominal discomfort and gas - will recall GI - Current Medication List Current Medications: Active Medications Acetaminophen (Tylenol -) 650 mg PO Q4H PRN PRN Reason: FEVER Atorvastatin Calcium (Lipitor -) 10 mg PO HS [facility] Last Admin: 03/05/18 20:59 Dose: 10 mg Brimonidine Tartrate (Alphagan 0.2% -) 1 drop OU BID [facility] Last Admin: 03/05/18 21:35 Dose: 1 drop Cholecalciferol (Vitamin D3 -) 400 unit PO DAILY [facility] Last Admin: 03/05/18 09:08 Dose: 400 unit Diltiazem HCl (Cardizem Injection -) 10 mg IVPUSH Q4H PRN PRN Reason: TACHYCARDIA Last Admin: 03/01/18 10:59 Dose: 10 mg Dorzolamide HCl (Trusopt 2%) 1 drop OD BID [facility] Last Admin: 03/05/18 21:00 Dose: 1 drop Furosemide (Lasix Injection -) 40 mg IVPUSH DAILY [facility] Last Admin: 03/05/18 09:06 Dose: 40 mg Heparin Sodium (Porcine) (Heparin -) 1,000 unit IVPUSH PRN PRN PRN Reason: Heparin Heparin Sodium (Porcine) (Heparin -) 5,000 unit IVPUSH PRN PRN PRN Reason: Heparin Heparin Sodium/Dextrose (Heparin Infusion -) 25,000 units in 500 mls @ 20 mls/ hr IVPB TITR [facility]; 1,000 UNITS/HR PRN Reason: Protocol Last Admin: 03/05/18 17:20 Dose: Not Given Lactobacillus Acidophilus (Bacid -) 1 tab PO DAILY [facility] Last Admin: 03/05/18 09:06 Dose: 1 tab Latanoprost (Xalatan 0.005% Eye Drops -) 1 drop OU HS [facility] Last Admin: 03/05/18 20:59 Dose: 1 drop Levothyroxine Sodium (Synthroid -) 75 mcg PO DAILY@0700 [facility] Last Admin: 03/06/18 06:15 Dose: 75 mcg Losartan Potassium (Cozaar -) 25 mg PO DAILY [facility] Last Admin: 03/05/18 09:06 Dose: 25 mg Pantoprazole Sodium (Protonix -) 40 mg PO DAILY [facility] Last Admin: 03/05/18 09:06 Dose: 40 mg Polyethylene Glycol (Miralax (For Daily Use) -) 17 gm PO BID [facility] Last Admin: 03/05/18 21:36 Dose: Not Given Simethicone (Mylicon -) 80 mg PO Q4H PRN PRN Reason: GAS Last Admin: 03/06/18 06:16 Dose: 80 mg Sotalol HCl (Betapace -) 80 mg PO BID [facility] Last Admin: 03/05/18 20:59 Dose: 80 mg Timolol Maleate (Timoptic 0.5%) 1 drop OU BID [facility] Last Admin: 03/05/18 20:59 Dose: 1 drop Warfarin Sodium (Coumadin -) 2 mg PO DAILY@1800 [facility] Last Admin: 03/05/18 17:21 Dose: 2 mg - Objective Vital Signs: Vital Signs Temperature 99.0 F 03/06/18 06:00 Pulse Rate 66 03/06/18 06:00 Respiratory Rate 20 03/06/18 06:00 Blood Pressure 132/76 03/06/18 06:00 O2 Sat by Pulse Oximetry (%) 95 03/05/18 21:00 Constitutional: Yes: No Distress, Calm Eyes: Yes: Conjunctiva Clear HENT: Yes: Atraumatic Neck: Yes: Supple Cardiovascular: Yes: Regular Rate and Rhythm Respiratory: Yes: CTA Bilaterally Gastrointestinal: Yes: Soft. No: Tenderness Genitourinary: No: CVA Tenderness - Left, CVA Tenderness - Right Musculoskeletal: No: Joint Stiffness, Joint Swelling Extremities: No: Cold, Cool, Cyanosis Edema: No Integumentary: No: Rash, Venous Stasis Changes Neurological: Yes: WNL, Alert, Oriented ...Motor Strength: WNL Psychiatric: Yes: WNL, Alert, Oriented. No: Agitated Labs: CBC, BMP 03/05/18 06:00 03/05/18 06:00 INR, PTT INR 1.22 (0.82-1.09) H 03/05/18 06:00 - ....Imaging Other: Report Reviewed Assessment/Plan 87 year old female with pmh CBD stone s/p ERCP s/p stent placement, atrial fibrillation (on Coumadin), Ao Stenosis, HTN, HLD, CAD s/p stents and pacemaker , hypothyroidism, diverticulitis, recurrent UTIs p/w generalized weakness s/p UTI on bactrim. Admitted with general weakness and shortness of breath, urinary retention. Coumadin toxicity Fluid overloaded, RAFib s/p CARLI CV per cardiology on IV heparin and po coumadin for aim INR 2-3 GI re-eval for lower abdominal discomfort and gas; miralax prn. plan as outlined before Lea removed, f/u for urinary retention PT rehab and CM eval for SNF falls PFX prognosis guarded d/w pt, d/w staff
[2018-03-06 07:41] LABS: EOS % 6.5 % (0-4.5); HEMATOCRIT 31.6 % (32.4-45.2); HEMOGLOBIN 10.7 GM/dL (10.7-15.3); LYMPH % 19.9 % (8-40); MCH 32.1 pg (25.7-33.7); MCHC 33.9 g/dl (32.0-36.0); MEAN CELL VOLUME 94.7 fl (80-96); MEAN PLT VOLUME 9.2 fl (7.5-11.1); MONO % 14.3 % (3.8-10.2); NEUT % 58.3 % (42.8-82.8); PLATELET COUNT 158 K/MM3 (134-434); RBC 3.34 M/mm3 (3.60-5.2); RDW 14.2 % (11.6-15.6); WHITE BLOOD COUNT 5.9 K/mm3 (4.0-10.0)
[2018-03-06 07:47] LABS: INR 1.22 (0.82-1.09); PROTHROMBIN TIME (PATIENT) 13.8 SEC (9.98-11.88)
[2018-03-06 08:05] LABS: CHLORIDE 96 mmol/L (98-107); POTASSIUM 3.8 mmol/L (3.5-5.1); SODIUM 137 mmol/L (136-145)
[2018-03-06 08:26] LABS: ALBUMIN 2.6 g/dl (3.4-5.0); ALK PHOS 82 U/L (45-117); ANION GAP 5 (8-16); BILIRUBIN,TOTAL 0.4 mg/dL (0.2-1.0); BLOOD UREA NITROGEN 14 mg/dL (7-18); CALCIUM 9.2 mg/dL (8.5-10.1); CO2 36 mmol/L (21-32); CREATININE 0.6 mg/dL (0.55-1.02); GLUCOSE,RANDOM 84 mg/dL (74-106); SGOT/AST 11 U/L (15-37); SGPT/ALT 13 U/L (12-78); TOT PROT 6.7 g/dl (6.4-8.2)
[2018-03-06] MEDS ORDERED: PT OWN MED DRAWER 7, Y5N ONE (08:54)
[2018-03-06] MEDS: PANTOPRAZOLE 40 MG TABLET (FP) PO SCH (09:37)
[2018-03-06] MEDS: LACTOBACILLUS ACIDOPHILUS 1 TABLET PO SCH (09:37)
[2018-03-06] MEDS: LOSARTAN POTASSIUM 25 MG TABLET PO SCH (09:37)
[2018-03-06] MEDS: SOTALOL HCL 80 MG TABLET (FP) PO SCH ×2 (09:37→21:26)
[2018-03-06] MEDS: CHOLECALCIFEROL (VITAMIN D3) 400 UNIT TABLET (FP) PO SCH (09:38)
[2018-03-06] MEDS: DORZOLAMIDE 2% HCL OPHTHALMIC SOLUTION 10 ML BOTTLE OD SCH ×2 (09:38→21:31)
[2018-03-06] MEDS: FUROSEMIDE 40 MG/4 ML INJECTABLE VIAL IVPUSH SCH (09:38)
[2018-03-06] MEDS: BRIMONIDINE TARTRATE 0.2% OPHTHALMIC 5 ML BOTTLE OU SCH ×2 (09:39→21:42)
[2018-03-06] MEDS: TIMOLOL 0.5% OPHTHALMIC SOL 5 ML BOTTLE OU SCH ×3 (09:40→21:27)
[2018-03-06] MEDS: HEPARIN INFUSION - 25,000 UNITS/500 ML INFUS.BAG IVPB SCH (09:41)
[2018-03-06] MEDS: POLYETHYLENE GLYCOL 3350 119 GM BTL PO SCH ×2 (09:50→21:33)
--- NOTE | 2018-03-06 09:57 | PN ---
Progress Note, Physician History of Present Illness: Remains in SR post CARLI-guided DCCV. Fatigue improved, denies chest pain or dyspnea. - Current Medication List Current Medications: Active Medications Acetaminophen (Tylenol -) 650 mg PO Q4H PRN PRN Reason: FEVER Atorvastatin Calcium (Lipitor -) 10 mg PO HS [facility] Last Admin: 03/05/18 20:59 Dose: 10 mg Brimonidine Tartrate (Alphagan 0.2% -) 1 drop OU BID [facility] Last Admin: 03/06/18 09:39 Dose: 1 drop Cholecalciferol (Vitamin D3 -) 400 unit PO DAILY [facility] Last Admin: 03/06/18 09:38 Dose: 400 unit Diltiazem HCl (Cardizem Injection -) 10 mg IVPUSH Q4H PRN PRN Reason: TACHYCARDIA Last Admin: 03/01/18 10:59 Dose: 10 mg Dorzolamide HCl (Trusopt 2%) 1 drop OD BID [facility] Last Admin: 03/06/18 09:38 Dose: 1 drop Furosemide (Lasix Injection -) 40 mg IVPUSH DAILY [facility] Last Admin: 03/06/18 09:38 Dose: 40 mg Heparin Sodium (Porcine) (Heparin -) 1,000 unit IVPUSH PRN PRN PRN Reason: Heparin Heparin Sodium (Porcine) (Heparin -) 5,000 unit IVPUSH PRN PRN PRN Reason: Heparin Heparin Sodium/Dextrose (Heparin Infusion -) 25,000 units in 500 mls @ 20 mls/ hr IVPB TITR [facility]; 1,000 UNITS/HR PRN Reason: Protocol Last Admin: 03/06/18 09:41 Dose: 900 units/hr, 18 mls/hr Lactobacillus Acidophilus (Bacid -) 1 tab PO DAILY [facility] Last Admin: 03/06/18 09:37 Dose: 1 tab Latanoprost (Xalatan 0.005% Eye Drops -) 1 drop OU HS [facility] Last Admin: 03/05/18 20:59 Dose: 1 drop Levothyroxine Sodium (Synthroid -) 75 mcg PO DAILY@0700 [facility] Last Admin: 03/06/18 06:15 Dose: 75 mcg Losartan Potassium (Cozaar -) 25 mg PO DAILY [facility] Last Admin: 03/06/18 09:37 Dose: 25 mg Pantoprazole Sodium (Protonix -) 40 mg PO DAILY [facility] Last Admin: 03/06/18 09:37 Dose: 40 mg Polyethylene Glycol (Miralax (For Daily Use) -) 17 gm PO BID [facility] Last Admin: 03/06/18 09:50 Dose: 17 gm Simethicone (Mylicon -) 80 mg PO Q4H PRN PRN Reason: GAS Last Admin: 03/06/18 06:16 Dose: 80 mg Sotalol HCl (Betapace -) 80 mg PO BID [facility] Last Admin: 03/06/18 09:37 Dose: 80 mg Timolol Maleate (Timoptic 0.5%) 1 drop OU BID [facility] Last Admin: 03/06/18 09:40 Dose: 1 drop Warfarin Sodium (Coumadin -) 2 mg PO DAILY@1800 [facility] Last Admin: 03/05/18 17:21 Dose: 2 mg - Objective Vital Signs: Vital Signs Temperature 99.0 F 03/06/18 06:00 Pulse Rate 66 03/06/18 06:00 Respiratory Rate 20 03/06/18 06:00 Blood Pressure 132/76 03/06/18 06:00 O2 Sat by Pulse Oximetry (%) 95 03/05/18 21:00 Constitutional: Yes: No Distress, Calm, Thin Neck: Yes: Supple Cardiovascular: Yes: Regular Rate and Rhythm, Murmur (2/6 SM) Respiratory: Yes: Regular, Diminished, On Nasal O2 Gastrointestinal: Yes: Normal Bowel Sounds, Soft Edema: No Labs: CBC, BMP 03/06/18 06:20 03/06/18 06:20 INR, PTT INR 1.22 (0.82-1.09) H 03/06/18 06:20 - ....Imaging EKG: Report Reviewed (Tele: A-paced) Problem List - Problems (1) CHF exacerbation Code(s): I50.9 - HEART FAILURE, UNSPECIFIED Qualifiers: Heart failure type: diastolic Qualified Code(s): I50.33 - Acute on chronic diastolic (congestive) heart failure (2) Coronary artery disease Code(s): I25.10 - ATHSCL HEART DISEASE OF [place] CORONARY ARTERY W/O ANG PCTRS Qualifiers: Coronary Disease-Associated Artery/Lesion type: [place] artery [place] vs. transplanted heart: [place] heart Associated angina: without angina Qualified Code(s): I25.10 - Atherosclerotic heart disease of [place] coronary artery without angina pectoris (3) History of pacemaker Code(s): Z95.0 - PRESENCE OF CARDIAC PACEMAKER (4) Hyperlipidemia Code(s): E78.5 - HYPERLIPIDEMIA, UNSPECIFIED Qualifiers: Hyperlipidemia type: pure hypercholesterolemia Qualified Code(s): E78.00 - Pure hypercholesterolemia, unspecified (5) Hypertension Code(s): I10 - ESSENTIAL (PRIMARY) HYPERTENSION Qualifiers: Hypertension type: essential hypertension Qualified Code(s): I10 - Essential (primary) hypertension (6) Hypothyroidism Code(s): E03.9 - HYPOTHYROIDISM, UNSPECIFIED Qualifiers: Hypothyroidism type: unspecified Qualified Code(s): E03.9 - Hypothyroidism , unspecified (7) Neurocardiogenic syncope Code(s): R55 - SYNCOPE AND COLLAPSE (8) Pacemaker Code(s): Z95.0 - PRESENCE OF CARDIAC PACEMAKER (9) Paroxysmal atrial fibrillation Code(s): I48.0 - PAROXYSMAL ATRIAL FIBRILLATION (10) MGUS (monoclonal gammopathy of unknown significance) Code(s): D47.2 - MONOCLONAL GAMMOPATHY (11) History of cardioversion Code(s): Z98.890 - OTHER SPECIFIED POSTPROCEDURAL STATES (12) Severe aortic stenosis Code(s): I35.0 - NONRHEUMATIC AORTIC (VALVE) STENOSIS Assessment/Plan 1. Acute on chronic class II NYHA classification LV failure related to diastolic LV dysfunction, resolving 2. Moderate-severe aortic valve stenosis 3. Paroxysmal atrial fibrillation currently in sinus rhythm post cardioversion with sub-therapeutic INR, [id number] score of 6 4. CAD angina pectoris, stable 5. 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 HTN/HCVD 7. Hyperlipidemia 8. Hypothyroidism 9. CKD with acute renal insufficiency, resolved 10. Abdominal pain, resolving 11. Retained stones post cholecystectomy with biliary duct dilatation post therapeutic ERCP/sphincterotomy and biliary stent for stent extraction 12. Anemia and thrombocytopenia (resolved) PLAN: 1. Continue Losartan 25 qd with close monitoring of renal function 2. Continue Betapace 80 bid with close monitoring of QTc 3. Continue Lipitor 10 qhs 4. Continue Heparin bridging and Coumadin with caution and close monitoring of CBC and INR, maintain INR 2-3 5. Change Lasix 20 PO daily 6. As outlined above in reference to management of her , to be deferred pending completion of her GI intervention/procedure 7. OOB to chair, encourage ambulation with assistance
--- NOTE | 2018-03-06 12:45 | PN ---
GI Progress Note Subjective: GI NOte: Asked by the nurse to address continued abdominal pain. Chyna tells me that she has crampy pain just before having her daily small BM. It resolves after defecation. It is not caused by eating. Her appetite is poor and she has minimal fiber intake. She does not want her Miralax increased. - Objective Vital Signs: Vital Signs Temperature 98.6 F 03/06/18 10:00 Pulse Rate 70 03/06/18 10:00 Respiratory Rate 03/06/18 10:00 Blood Pressure 148/84 03/06/18 10:00 O2 Sat by Pulse Oximetry (%) 94 L 03/06/18 09:00 Constitutional: Anxious ...Auscultate: Yes: Normoactive Bowel Sounds ...Palpate: Yes: Soft, Other (nontender) Labs: CBC, BMP 03/06/18 06:20 03/06/18 06:20 INR, PTT INR 1.22 (0.82-1.09) H 03/06/18 06:20 Assessment/Plan Gaseous pain compounded by constipation. Continue Miralax. Problem List - Problems (1) Diarrhea Code(s): R19.7 - DIARRHEA, UNSPECIFIED (2) Bile duct calculus Code(s): K80.50 - CALCULUS OF BILE DUCT W/O CHOLANGITIS OR CHOLECYST W/O OBST Qualifiers: Cholecystitis presence: without cholecystitis Biliary obstruction: with biliary obstruction Qualified Code(s): K80.51 - Calculus of bile duct without cholangitis or cholecystitis with obstruction (3) Lower esophageal ring ([place]) Code(s): K22.2 - ESOPHAGEAL OBSTRUCTION
[2018-03-06] MEDS: WARFARIN NA 5 MG TABLET (UD) PO SCH (17:14)
[2018-03-06] MEDS: ATORVASTATIN CA 10 MG TABLET (FP) PO SCH (21:26)
[2018-03-06] MEDS: LATANOPROST 0.005% OPHTH SOLN 2.5ML BOTTLE OU SCH (21:33)
--- NOTE | 2018-03-07 06:20 | PN ---
Progress Note, Physician Chief Complaint: no new c/o INR still low despite increasing coumadin doses - Current Medication List Current Medications: Active Medications Acetaminophen (Tylenol -) 650 mg PO Q4H PRN PRN Reason: FEVER Atorvastatin Calcium (Lipitor -) 10 mg PO HS [facility] Last Admin: 03/06/18 21:26 Dose: 10 mg Brimonidine Tartrate (Alphagan 0.2% -) 1 drop OU BID [facility] Last Admin: 03/06/18 21:42 Dose: 1 drop Cholecalciferol (Vitamin D3 -) 400 unit PO DAILY [facility] Last Admin: 03/06/18 09:38 Dose: 400 unit Diltiazem HCl (Cardizem Injection -) 10 mg IVPUSH Q4H PRN PRN Reason: TACHYCARDIA Last Admin: 03/01/18 10:59 Dose: 10 mg Dorzolamide HCl (Trusopt 2%) 1 drop OD BID [facility] Last Admin: 03/06/18 21:31 Dose: 1 drop Furosemide (Lasix -) 20 mg PO DAILY [facility] Heparin Sodium (Porcine) (Heparin -) 1,000 unit IVPUSH PRN PRN PRN Reason: Heparin Heparin Sodium (Porcine) (Heparin -) 5,000 unit IVPUSH PRN PRN PRN Reason: Heparin Heparin Sodium/Dextrose (Heparin Infusion -) 25,000 units in 500 mls @ 20 mls/ hr IVPB TITR [facility]; 1,000 UNITS/HR PRN Reason: Protocol Last Admin: 03/06/18 09:41 Dose: 900 units/hr, 18 mls/hr Lactobacillus Acidophilus (Bacid -) 1 tab PO DAILY [facility] Last Admin: 03/06/18 09:37 Dose: 1 tab Latanoprost (Xalatan 0.005% Eye Drops -) 1 drop OU HS [facility] Last Admin: 03/06/18 21:33 Dose: 1 drop Levothyroxine Sodium (Synthroid -) 75 mcg PO DAILY@0700 [facility] Last Admin: 03/06/18 06:15 Dose: 75 mcg Losartan Potassium (Cozaar -) 25 mg PO DAILY [facility] Last Admin: 03/06/18 09:37 Dose: 25 mg Pantoprazole Sodium (Protonix -) 40 mg PO DAILY [facility] Last Admin: 03/06/18 09:37 Dose: 40 mg Polyethylene Glycol (Miralax (For Daily Use) -) 17 gm PO BID [facility] Last Admin: 03/06/18 21:33 Dose: Not Given Simethicone (Mylicon -) 80 mg PO Q4H PRN PRN Reason: GAS Last Admin: 03/06/18 21:26 Dose: 80 mg Sotalol HCl (Betapace -) 80 mg PO BID [facility] Last Admin: 03/06/18 21:26 Dose: 80 mg Timolol Maleate (Timoptic 0.5%) 1 drop OU BID [facility] Last Admin: 03/06/18 21:27 Dose: 1 drop Warfarin Sodium (Coumadin -) 5 mg PO DAILY@1800 [facility] Stop: 03/07/18 18:01 Last Admin: 03/06/18 17:14 Dose: 5 mg Warfarin Sodium (Coumadin -) 2 mg PO DAILY@1800 [facility] - Objective Vital Signs: Vital Signs Temperature 98.4 F 03/07/18 05:55 Pulse Rate 65 03/07/18 05:55 Respiratory Rate 20 03/07/18 05:55 Blood Pressure 126/69 03/07/18 05:55 O2 Sat by Pulse Oximetry (%) 96 03/06/18 20:02 Constitutional: Yes: No Distress, Calm Eyes: Yes: Conjunctiva Clear HENT: Yes: Atraumatic Neck: Yes: Supple Cardiovascular: Yes: Regular Rate and Rhythm Respiratory: Yes: CTA Bilaterally Gastrointestinal: Yes: Soft. No: Tenderness Genitourinary: No: CVA Tenderness - Left, CVA Tenderness - Right Musculoskeletal: No: Joint Stiffness, Joint Swelling Extremities: No: Cold, Cool, Cyanosis Edema: No Integumentary: No: Rash, Venous Stasis Changes Neurological: Yes: WNL, Alert, Oriented ...Motor Strength: WNL Psychiatric: Yes: WNL, Alert, Oriented. No: Agitated Labs: CBC, BMP 03/06/18 06:20 03/06/18 06:20 INR, PTT INR 1.22 (0.82-1.09) H 03/06/18 06:20 - ....Imaging Other: Report Reviewed Assessment/Plan 87 year old female with pmh CBD stone s/p ERCP s/p stent placement, atrial fibrillation (on Coumadin), Ao Stenosis, HTN, HLD, CAD s/p stents and pacemaker , hypothyroidism, diverticulitis, recurrent UTIs p/w generalized weakness s/p UTI on bactrim. Admitted with general weakness and shortness of breath, urinary retention. Coumadin toxicity Fluid overloaded, RAFib s/p CARLI CV per cardiology on IV heparin and po coumadin for aim INR 2-3 GI re-eval for lower abdominal discomfort and gas; miralax prn. plan as outlined before no urinary retention pt able to urinate well PT rehab and CM eval for SNF falls PFX prognosis guarded d/w pt, d/w staff
[2018-03-07] MEDS: LEVOTHYROXINE NA 75 MCG TABLET (FP) PO SCH (06:33)
[2018-03-07] MEDS: SIMETHICONE 80 MG TAB.CHEW (FP) PO PRN (06:42)
[2018-03-07 07:43] LABS: INR 1.21 (0.82-1.09); PROTHROMBIN TIME (PATIENT) 13.7 SEC (9.7-13.0)
[2018-03-07 07:51] LABS: BASO % 0.9 % (0-2.0); EOS % 6.4 % (0-4.5); HEMATOCRIT 32.8 % (32.4-45.2); HEMOGLOBIN 11.2 GM/dL (10.7-15.3); LYMPH % 20.2 % (8-40); MCH 32.1 pg (25.7-33.7); MEAN CELL VOLUME 94.5 fl (80-96); MONO % 13.8 % (3.8-10.2); NEUT % 58.7 % (42.8-82.8); PLATELET COUNT 162 K/MM3 (134-434); RBC 3.48 M/mm3 (3.60-5.2); WHITE BLOOD COUNT 6.5 K/mm3 (4.0-10.0)
[2018-03-07 07:56] LABS: ANION GAP 5 (8-16); BLOOD UREA NITROGEN 16 mg/dL (7-18); CALCIUM 9.3 mg/dL (8.5-10.1); CHLORIDE 97 mmol/L (98-107); CO2 36 mmol/L (21-32); CREATININE 0.6 mg/dL (0.55-1.02); GLUCOSE,RANDOM 89 mg/dL (74-106); SODIUM 138 mmol/L (136-145)
--- NOTE | 2018-03-07 08:08 | PN ---
Progress Note (short form) - Note Progress Note: Chief Complaint: Events noted, notes reviewed, dyspnea continues to improve, denies any chest pain, lower abdominal discomfort and abdominal distention resolved, overall continues to improve clinically, sinus rhythm is persistent post cardioversion History of Present Illness: Seen and examined on telemetry. Events noted, notes reviewed, dyspnea continues to improve, denies any chest pain, lower abdominal discomfort and abdominal distention resolved, overall continues to improve clinically, sinus rhythm is persistent post cardioversion As outlined in prior notes plan to D/C home on A/C with Coumadin for at least 3- 4 weeks and then proceed with planned GI procedure/ERCP for management of retained stone, and then plan to proceed with possible TAVR for management of her severe symptomatic . Echocardiography 01/06/2018 revealed normal LV size with mild LVH normal LV function, abnormal LV compliance, moderate-severe aortic valve stenosis with MG 32 mmHg, RUBY 0.7 cm^2, mild AR, mildly dilated aortic root, moderate MR, TR, mild NM, RVSP 40 mmHg Medications: Current Medications Acetaminophen (Tylenol -) 650 mg PO Q4H PRN PRN Reason: FEVER Atorvastatin Calcium (Lipitor -) 10 mg PO HS [facility] Last Admin: 03/06/18 21:26 Dose: 10 mg Brimonidine Tartrate (Alphagan 0.2% -) 1 drop OU BID [facility] Last Admin: 03/06/18 21:42 Dose: 1 drop Cholecalciferol (Vitamin D3 -) 400 unit PO DAILY [facility] Last Admin: 03/06/18 09:38 Dose: 400 unit Diltiazem HCl (Cardizem Injection -) 10 mg IVPUSH Q4H PRN PRN Reason: TACHYCARDIA Last Admin: 03/01/18 10:59 Dose: 10 mg Dorzolamide HCl (Trusopt 2%) 1 drop OD BID [facility] Last Admin: 03/06/18 21:31 Dose: 1 drop Furosemide (Lasix -) 20 mg PO DAILY [facility] Heparin Sodium (Porcine) (Heparin -) 1,000 unit IVPUSH PRN PRN PRN Reason: Heparin Heparin Sodium (Porcine) (Heparin -) 5,000 unit IVPUSH PRN PRN PRN Reason: Heparin Heparin Sodium/Dextrose (Heparin Infusion -) 25,000 units in 500 mls @ 20 mls/ hr IVPB TITR [facility]; 1,000 UNITS/HR PRN Reason: Protocol Last Admin: 03/06/18 09:41 Dose: 900 units/hr, 18 mls/hr Lactobacillus Acidophilus (Bacid -) 1 tab PO DAILY [facility] Last Admin: 03/06/18 09:37 Dose: 1 tab Latanoprost (Xalatan 0.005% Eye Drops -) 1 drop OU HS [facility] Last Admin: 03/06/18 21:33 Dose: 1 drop Levothyroxine Sodium (Synthroid -) 75 mcg PO DAILY@0700 [facility] Last Admin: 03/07/18 06:33 Dose: 75 mcg Losartan Potassium (Cozaar -) 25 mg PO DAILY [facility] Last Admin: 03/06/18 09:37 Dose: 25 mg Multivitamins/Minerals/Vitamin C (Tab-A-Vit -) 1 tab PO DAILY [facility] Pantoprazole Sodium (Protonix -) 40 mg PO DAILY [facility] Last Admin: 03/06/18 09:37 Dose: 40 mg Polyethylene Glycol (Miralax (For Daily Use) -) 17 gm PO BID [facility] Last Admin: 03/06/18 21:33 Dose: Not Given Simethicone (Mylicon -) 80 mg PO Q4H PRN PRN Reason: GAS Last Admin: 03/07/18 06:42 Dose: 80 mg Sotalol HCl (Betapace -) 80 mg PO BID [facility] Last Admin: 03/06/18 21:26 Dose: 80 mg Timolol Maleate (Timoptic 0.5%) 1 drop OU BID [facility] Last Admin: 03/06/18 21:27 Dose: 1 drop Warfarin Sodium (Coumadin -) 5 mg PO DAILY@1800 [facility] Stop: 03/07/18 18:01 Last Admin: 03/06/18 17:14 Dose: 5 mg Warfarin Sodium (Coumadin -) 2 mg PO DAILY@1800 [facility] Review of Systems - Review of Systems Constitutional: no symptoms reported Respiratory: Denies: Cough or Sputum Production Cardiovascular: As noted above Gastrointestinal: denies Nausea, Vomiting, Diarrhea or Constipation Genitourinary: No symptoms reported Musculoskeletal: Degenerative Joint Disease Endocrine: No symptoms reported Vital Signs: Last Vital Signs Temp Pulse Resp BP Pulse Ox 98.4 F 65 20 126/69 96 03/07/18 05:55 03/07/18 05:55 03/07/18 05:55 03/07/18 05:55 03/06/18 20:02 Intake & Output 03/04/18 03/05/18 03/06/18 03/07/18 23:59 23:59 23:59 23:59 Intake Total 228 1155 800 Output Total 1200 Balance 228 1155 -400 Constitutional: No Distress, Calm Neck: Supple Negative JVD Respiratory: Diminished Breath Sounds at the Bases Bilaterally Cardiovascular: S1 S2 Regular Rate Rhythm Grade 2-3/6 ELIZABETH Gastrointestinal: Soft Benign Normal Bowel Sounds Ext: No Edema Labs: CBC, BMP 03/07/18 06:37 Hepatic Panel Total Bilirubin 0.4 mg/dL (0.2-1.0) D 03/06/18 06:20 AST 11 U/L (15-37) L 03/06/18 06:20 ALT 13 U/L (12-78) 03/06/18 06:20 Alkaline Phosphatase 82 U/L (45-117) 03/06/18 06:20 Albumin 2.6 g/dl (3.4-5.0) L 03/06/18 06:20 INR, PTT INR 1.21 (0.82-1.09) H 03/07/18 06:37 Assessment/Plan ASSESSMENT: 1. Acute on chronic class II NYHA classification LV failure related to diastolic LV dysfunction, resolved 2. Moderate-severe aortic valve stenosis 3. Paroxysmal atrial fibrillation currently in sinus rhythm post cardioversion with sub-therapeutic INR, [id number] score of 6 4. CAD angina pectoris, stable 5. 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 HTN/HCVD 7. Hyperlipidemia 8. Hypothyroidism 9. CKD with acute renal insufficiency, resolved 10. Abdominal pain, resolved 11. Retained stones post cholecystectomy with biliary duct dilatation post therapeutic ERCP/sphincterotomy and biliary stent for stent extraction 12. Anemia and thrombocytopenia (resolved) PLAN: 1. Continue Losartan with close monitoring of renal function 2. Continue Betapace with close monitoring of QTc 3. Continue Lipitor 4. Continue Heparin bridging and Coumadin with caution and close monitoring of CBC and INR, maintain INR 2-3 5. Continue PO Lasix 6. As outlined above in reference to management of her , to be deferred pending completion of her GI intervention/procedure Murray Willoughby M.D.
[2018-03-07] MEDS ORDERED: PT OWN MED DRAWER 7, Y5N ONE (08:31)
[2018-03-07] MEDS: HEPARIN INFUSION - 25,000 UNITS/500 ML INFUS.BAG IVPB SCH ×2 (09:59→12:10)
[2018-03-07] MEDS: LACTOBACILLUS ACIDOPHILUS 1 TABLET PO SCH (10:00)
[2018-03-07] MEDS: PANTOPRAZOLE 40 MG TABLET (FP) PO SCH (10:00)
[2018-03-07] MEDS: LOSARTAN POTASSIUM 25 MG TABLET PO SCH (10:00)
[2018-03-07] MEDS: CHOLECALCIFEROL (VITAMIN D3) 400 UNIT TABLET (FP) PO SCH (10:00)
[2018-03-07] MEDS: FUROSEMIDE 20 MG TABLET (FP) PO SCH (10:00)
[2018-03-07] MEDS: SOTALOL HCL 80 MG TABLET (FP) PO SCH ×2 (10:00→22:07)
[2018-03-07] MEDS: MULTIVITAMINS (DAILY MVI) TABLET (FP) PO SCH (10:01)
[2018-03-07] MEDS: POLYETHYLENE GLYCOL 3350 119 GM BTL PO SCH ×2 (10:02→22:46)
[2018-03-07] MEDS: DORZOLAMIDE 2% HCL OPHTHALMIC SOLUTION 10 ML BOTTLE OD SCH ×2 (10:03→22:06)
[2018-03-07] MEDS: BRIMONIDINE TARTRATE 0.2% OPHTHALMIC 5 ML BOTTLE OU SCH ×2 (10:04→22:06)
[2018-03-07] MEDS: TIMOLOL 0.5% OPHTHALMIC SOL 5 ML BOTTLE OU SCH ×2 (10:04→22:06)
--- NOTE | 2018-03-07 17:18 | PN ---
GI Progress Note Subjective: GI NOte: Had a large formed BM yesterday which has left her feeling much better. No abdominal pain today. Appetite still subpar. Daughter is at the bedside. We again discussed the plan to do the ERCP in 4 weeks as an outpatient when her anticoagulation can be stopped. - Objective Vital Signs: Vital Signs Temperature 98.3 F 03/07/18 12:11 Pulse Rate 68 03/07/18 12:11 Respiratory Rate 20 03/07/18 12:11 Blood Pressure 103/58 03/07/18 12:11 O2 Sat by Pulse Oximetry (%) 96 03/07/18 09:00 Labs: CBC, BMP 03/07/18 06:37 03/07/18 06:37 INR, PTT INR 1.21 (0.82-1.09) H 03/07/18 06:37 Problem List - Problems (1) Diarrhea Code(s): R19.7 - DIARRHEA, UNSPECIFIED (2) Bile duct calculus Code(s): K80.50 - CALCULUS OF BILE DUCT W/O CHOLANGITIS OR CHOLECYST W/O OBST Qualifiers: Cholecystitis presence: without cholecystitis Biliary obstruction: with biliary obstruction Qualified Code(s): K80.51 - Calculus of bile duct without cholangitis or cholecystitis with obstruction (3) Lower esophageal ring (Schatzki) Code(s): K22.2 - ESOPHAGEAL OBSTRUCTION
[2018-03-07] MEDS: WARFARIN NA 5 MG TABLET (UD) PO SCH (17:46)
[2018-03-07] MEDS: LATANOPROST 0.005% OPHTH SOLN 2.5ML BOTTLE OU SCH (22:06)
[2018-03-07] MEDS: ATORVASTATIN CA 10 MG TABLET (FP) PO SCH (22:07)
[2018-03-08] MEDS ORDERED: PT OWN MED DRAWER 7, Y5N ONE ×4 (05:47→21:10)
[2018-03-08] MEDS: LEVOTHYROXINE NA 75 MCG TABLET (FP) PO SCH (06:13)
--- NOTE | 2018-03-08 06:39 | PN ---
Progress Note, Physician History of Present Illness: feeling well no new c.o - Current Medication List Current Medications: Active Medications Acetaminophen (Tylenol -) 650 mg PO Q4H PRN PRN Reason: FEVER Atorvastatin Calcium (Lipitor -) 10 mg PO HS [facility] Last Admin: 03/07/18 22:07 Dose: 10 mg Brimonidine Tartrate (Alphagan 0.2% -) 1 drop OU BID [facility] Last Admin: 03/07/18 22:06 Dose: 1 drop Cholecalciferol (Vitamin D3 -) 400 unit PO DAILY [facility] Last Admin: 03/07/18 10:00 Dose: 400 unit Diltiazem HCl (Cardizem Injection -) 10 mg IVPUSH Q4H PRN PRN Reason: TACHYCARDIA Last Admin: 03/01/18 10:59 Dose: 10 mg Dorzolamide HCl (Trusopt 2%) 1 drop OD BID [facility] Last Admin: 03/07/18 22:06 Dose: 1 drop Furosemide (Lasix -) 20 mg PO DAILY [facility] Last Admin: 03/07/18 10:00 Dose: 20 mg Heparin Sodium (Porcine) (Heparin -) 1,000 unit IVPUSH PRN PRN PRN Reason: Heparin Heparin Sodium (Porcine) (Heparin -) 5,000 unit IVPUSH PRN PRN PRN Reason: Heparin Heparin Sodium/Dextrose (Heparin Infusion -) 25,000 units in 500 mls @ 20 mls/ hr IVPB TITR [facility]; 1,000 UNITS/HR PRN Reason: Protocol Last Admin: 03/07/18 12:10 Dose: Not Given Lactobacillus Acidophilus (Bacid -) 1 tab PO DAILY [facility] Last Admin: 03/07/18 10:00 Dose: 1 tab Latanoprost (Xalatan 0.005% Eye Drops -) 1 drop OU HS [facility] Last Admin: 03/07/18 22:06 Dose: 1 drop Levothyroxine Sodium (Synthroid -) 75 mcg PO DAILY@0700 [facility] Last Admin: 03/08/18 06:13 Dose: 75 mcg Losartan Potassium (Cozaar -) 25 mg PO DAILY [facility] Last Admin: 03/07/18 10:00 Dose: 25 mg Multivitamins/Minerals/Vitamin C (Tab-A-Vit -) 1 tab PO DAILY [facility] Last Admin: 03/07/18 10:01 Dose: 1 tab Pantoprazole Sodium (Protonix -) 40 mg PO DAILY [facility] Last Admin: 03/07/18 10:00 Dose: 40 mg Polyethylene Glycol (Miralax (For Daily Use) -) 17 gm PO BID [facility] Last Admin: 03/07/18 22:46 Dose: Not Given Simethicone (Mylicon -) 80 mg PO Q4H PRN PRN Reason: GAS Last Admin: 03/07/18 06:42 Dose: 80 mg Sotalol HCl (Betapace -) 80 mg PO BID [facility] Last Admin: 03/07/18 22:07 Dose: 80 mg Timolol Maleate (Timoptic 0.5%) 1 drop OU BID [facility] Last Admin: 03/07/18 22:06 Dose: 1 drop Warfarin Sodium (Coumadin -) 2 mg PO DAILY@1800 [facility] - Objective Vital Signs: Vital Signs Temperature 98.4 F 03/08/18 05:41 Pulse Rate 69 03/08/18 05:41 Respiratory Rate 20 03/08/18 05:41 Blood Pressure 114/67 03/08/18 05:41 O2 Sat by Pulse Oximetry (%) 96 03/07/18 21:00 Constitutional: Yes: No Distress, Calm Eyes: Yes: Conjunctiva Clear HENT: Yes: Atraumatic Neck: Yes: Supple Cardiovascular: Yes: Regular Rate and Rhythm Respiratory: Yes: CTA Bilaterally Gastrointestinal: Yes: Soft. No: Tenderness Genitourinary: No: CVA Tenderness - Left, CVA Tenderness - Right Musculoskeletal: No: Joint Stiffness, Joint Swelling Extremities: No: Cold, Cool Edema: No Integumentary: No: Rash, Venous Stasis Changes Neurological: Yes: WNL, Alert, Oriented ...Motor Strength: WNL Psychiatric: Yes: WNL, Alert, Oriented. No: Agitated, Suicidal Ideation Labs: CBC, BMP 03/07/18 06:37 03/07/18 06:37 INR, PTT INR 1.21 (0.82-1.09) H 03/07/18 06:37 - ....Imaging Other: Report Reviewed Assessment/Plan 87 year old female with pmh CBD stone s/p ERCP s/p stent placement, atrial fibrillation (on Coumadin), Ao Stenosis, HTN, HLD, CAD s/p stents and pacemaker , hypothyroidism, diverticulitis, recurrent UTIs p/w generalized weakness s/p UTI on bactrim. Admitted with general weakness and shortness of breath, urinary retention. Coumadin toxicity Fluid overloaded, RAFib s/p CARLI CV per cardiology on IV heparin and po coumadin for aim INR 2-3 miralax prn for constipation plan as outlined before no urinary retention pt able to urinate well PT rehab and CM eval for SNF falls PFX prognosis guarded d/w pt, d/w staff
[2018-03-08 07:45] LABS: HEMATOCRIT 30.4 % (32.4-45.2); HEMOGLOBIN 10.3 GM/dL (10.7-15.3); MCHC 33.9 g/dl (32.0-36.0); MEAN CELL VOLUME 94.3 fl (80-96); MEAN PLT VOLUME 8.9 fl (7.5-11.1); PLATELET COUNT 157 K/MM3 (134-434); RBC 3.23 M/mm3 (3.60-5.2); RDW 14.1 % (11.6-15.6); WHITE BLOOD COUNT 6.1 K/mm3 (4.0-10.0)
[2018-03-08] MEDS: POLYETHYLENE GLYCOL 3350 119 GM BTL PO SCH ×2 (09:17→22:27)
[2018-03-08] MEDS: MULTIVITAMINS (DAILY MVI) TABLET (FP) PO SCH (09:18)
[2018-03-08] MEDS: SOTALOL HCL 80 MG TABLET (FP) PO SCH ×2 (09:18→22:26)
[2018-03-08] MEDS: FUROSEMIDE 20 MG TABLET (FP) PO SCH (09:18)
[2018-03-08] MEDS: CHOLECALCIFEROL (VITAMIN D3) 400 UNIT TABLET (FP) PO SCH (09:18)
[2018-03-08] MEDS: LACTOBACILLUS ACIDOPHILUS 1 TABLET PO SCH (09:18)
[2018-03-08] MEDS: PANTOPRAZOLE 40 MG TABLET (FP) PO SCH (09:18)
[2018-03-08] MEDS: LOSARTAN POTASSIUM 25 MG TABLET PO SCH (09:18)
[2018-03-08] MEDS: BRIMONIDINE TARTRATE 0.2% OPHTHALMIC 5 ML BOTTLE OU SCH ×2 (09:19→22:25)
[2018-03-08] MEDS: DORZOLAMIDE 2% HCL OPHTHALMIC SOLUTION 10 ML BOTTLE OD SCH ×2 (09:19→22:25)
[2018-03-08] MEDS: HEPARIN INFUSION - 25,000 UNITS/500 ML INFUS.BAG IVPB SCH ×3 (09:19→15:47)
[2018-03-08] MEDS: TIMOLOL 0.5% OPHTHALMIC SOL 5 ML BOTTLE OU SCH ×2 (09:20→22:25)
[2018-03-08] MEDS: SIMETHICONE 80 MG TAB.CHEW (FP) PO PRN ×2 (09:24→22:26)
[2018-03-08 11:11] LABS: ANION GAP 4 (8-16); BLOOD UREA NITROGEN 16 mg/dL (7-18); CHLORIDE 98 mmol/L (98-107); CO2 35 mmol/L (21-32); CREATININE 0.6 mg/dL (0.55-1.02); GLUCOSE,RANDOM 88 mg/dL (74-106); POTASSIUM 4.1 mmol/L (3.5-5.1); SODIUM 137 mmol/L (136-145)
[2018-03-08 11:46] LABS: INR 1.44 (0.82-1.09); PROTHROMBIN TIME (PATIENT) 16.3 SEC (9.7-13.0)
--- NOTE | 2018-03-08 11:49 | PN ---
Progress Note, Physician History of Present Illness: Remains in SR post CARLI-guided DCCV. Fatigue improved, denies chest pain or dyspnea. - Current Medication List Current Medications: Active Medications Acetaminophen (Tylenol -) 650 mg PO Q4H PRN PRN Reason: FEVER Atorvastatin Calcium (Lipitor -) 10 mg PO HS [facility] Last Admin: 03/07/18 22:07 Dose: 10 mg Brimonidine Tartrate (Alphagan 0.2% -) 1 drop OU BID [facility] Last Admin: 03/08/18 09:19 Dose: 1 drop Cholecalciferol (Vitamin D3 -) 400 unit PO DAILY [facility] Last Admin: 03/08/18 09:18 Dose: 400 unit Diltiazem HCl (Cardizem Injection -) 10 mg IVPUSH Q4H PRN PRN Reason: TACHYCARDIA Last Admin: 03/01/18 10:59 Dose: 10 mg Dorzolamide HCl (Trusopt 2%) 1 drop OD BID [facility] Last Admin: 03/08/18 09:19 Dose: 1 drop Furosemide (Lasix -) 20 mg PO DAILY [facility] Last Admin: 03/08/18 09:18 Dose: 20 mg Heparin Sodium (Porcine) (Heparin -) 1,000 unit IVPUSH PRN PRN PRN Reason: Heparin Heparin Sodium (Porcine) (Heparin -) 5,000 unit IVPUSH PRN PRN PRN Reason: Heparin Heparin Sodium/Dextrose (Heparin Infusion -) 25,000 units in 500 mls @ 20 mls/ hr IVPB TITR [facility]; 1,000 UNITS/HR PRN Reason: Protocol Last Admin: 03/08/18 09:19 Dose: 750 units/hr, 15 mls/hr Lactobacillus Acidophilus (Bacid -) 1 tab PO DAILY [facility] Last Admin: 03/08/18 09:18 Dose: 1 tab Latanoprost (Xalatan 0.005% Eye Drops -) 1 drop OU HS [facility] Last Admin: 03/07/18 22:06 Dose: 1 drop Levothyroxine Sodium (Synthroid -) 75 mcg PO DAILY@0700 [facility] Last Admin: 03/08/18 06:13 Dose: 75 mcg Losartan Potassium (Cozaar -) 25 mg PO DAILY [facility] Last Admin: 03/08/18 09:18 Dose: 25 mg Multivitamins/Minerals/Vitamin C (Tab-A-Vit -) 1 tab PO DAILY [facility] Last Admin: 03/08/18 09:18 Dose: 1 tab Pantoprazole Sodium (Protonix -) 40 mg PO DAILY [facility] Last Admin: 03/08/18 09:18 Dose: 40 mg Polyethylene Glycol (Miralax (For Daily Use) -) 17 gm PO BID [facility] Last Admin: 03/08/18 09:17 Dose: 17 gm Simethicone (Mylicon -) 80 mg PO Q4H PRN PRN Reason: GAS Last Admin: 03/08/18 09:24 Dose: 80 mg Sotalol HCl (Betapace -) 80 mg PO BID [facility] Last Admin: 03/08/18 09:18 Dose: 80 mg Timolol Maleate (Timoptic 0.5%) 1 drop OU BID [facility] Last Admin: 03/08/18 09:20 Dose: 1 drop Warfarin Sodium (Coumadin -) 2 mg PO DAILY@1800 [facility] - Objective Vital Signs: Vital Signs Temperature 97.4 F L 03/08/18 09:00 Pulse Rate 68 03/08/18 09:00 Respiratory Rate 20 03/08/18 09:00 Blood Pressure 129/81 03/08/18 09:00 O2 Sat by Pulse Oximetry (%) 97 03/08/18 09:00 Constitutional: Yes: No Distress, Calm, Thin Neck: Yes: Supple Cardiovascular: Yes: Regular Rate and Rhythm, Murmur (3/6 SM) Respiratory: Yes: Regular, Diminished Gastrointestinal: Yes: Normal Bowel Sounds, Soft Edema: No Labs: CBC, BMP 03/08/18 08:00 03/08/18 07:00 INR, PTT INR 1.44 (0.82-1.09) H 03/08/18 07:00 Problem List - Problems (1) CHF exacerbation Code(s): I50.9 - HEART FAILURE, UNSPECIFIED Qualifiers: Heart failure type: diastolic Qualified Code(s): I50.33 - Acute on chronic diastolic (congestive) heart failure (2) Coronary artery disease Code(s): I25.10 - ATHSCL HEART DISEASE OF [place] CORONARY ARTERY W/O ANG PCTRS Qualifiers: Coronary Disease-Associated Artery/Lesion type: [place] artery [place] vs. transplanted heart: [place] heart Associated angina: without angina Qualified Code(s): I25.10 - Atherosclerotic heart disease of [place] coronary artery without angina pectoris (3) History of pacemaker Code(s): Z95.0 - PRESENCE OF CARDIAC PACEMAKER (4) Hyperlipidemia Code(s): E78.5 - HYPERLIPIDEMIA, UNSPECIFIED Qualifiers: Hyperlipidemia type: pure hypercholesterolemia Qualified Code(s): E78.00 - Pure hypercholesterolemia, unspecified (5) Hypertension Code(s): I10 - ESSENTIAL (PRIMARY) HYPERTENSION Qualifiers: Hypertension type: essential hypertension Qualified Code(s): I10 - Essential (primary) hypertension (6) Hypothyroidism Code(s): E03.9 - HYPOTHYROIDISM, UNSPECIFIED Qualifiers: Hypothyroidism type: unspecified Qualified Code(s): E03.9 - Hypothyroidism , unspecified (7) Neurocardiogenic syncope Code(s): R55 - SYNCOPE AND COLLAPSE (8) Pacemaker Code(s): Z95.0 - PRESENCE OF CARDIAC PACEMAKER (9) Paroxysmal atrial fibrillation Code(s): I48.0 - PAROXYSMAL ATRIAL FIBRILLATION (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 Acute on chronic class II NYHA classification LV failure related to diastolic LV dysfunction, resolved 2. Moderate-severe aortic valve stenosis 3. Paroxysmal atrial fibrillation currently in sinus rhythm post cardioversion with sub-therapeutic INR, [id number] score of 6 4. CAD angina pectoris, stable 5. 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 HTN/HCVD 7. Hyperlipidemia 8. Hypothyroidism 9. CKD with acute renal insufficiency, resolved 10. Abdominal pain, resolved 11. Retained stones post cholecystectomy with biliary duct dilatation post therapeutic ERCP/sphincterotomy and biliary stent for stent extraction 12. Anemia and thrombocytopenia (resolved) PLAN: 1. Continue Losartan 25 qd with close monitoring of renal function 2. Continue Betapace 80 bid with close monitoring of QTc 3. Continue Lipitor 10 qhs 4. Continue Heparin gtt-> Coumadin per INR, maintain INR 2-3 5. Continue PO Lasix 20 qd 6. As outlined above in reference to management of her , to be deferred pending ERCP in 4 weeks
--- NOTE | 2018-03-08 14:24 | PN ---
Progress Note (short form) - Note Progress Note: Patient seen and examined Presented with biliary colic and UTI Improving on antibiotics. Had supratherapeutic INR which is improved Patient followed in office with dysproteinemia. Has s serum free kappa/free lambda light chain ratio of 98. A value of > 100 is sufficient for a definitivie diagnosis of multiple myeloma. Recent PET scan did not reveal any bone disease , but did reveal subcm nodules in lung wihich will need be monitored. Last Vital Signs Temp Pulse Resp BP Pulse Ox 97.4 F L 66 20 123/73 97 03/08/18 13:46 03/08/18 13:46 03/08/18 13:46 03/08/18 13:46 03/08/18 09:00 HEENT: FANY, EOM Intact Oropharynx: No thrush, No mucositis,dentures Cor: RSR, systolic murmur Lungs: Rales scattered at bases Abd: Soft, Normal bowel sounds, No organomegaly Ext:No significant edema Skin: No rashes, Integument intact CBC, BMP 03/08/18 08:00 03/08/18 07:00 INR, PTT INR 1.44 (0.82-1.09) H 03/08/18 07:00 Current Medications Generic Name Dose Route Start Last Admin Trade Name Freq PRN Reason Stop Dose Admin Acetaminophen 650 mg 02/27/18 20:03 Tylenol - PO Q4H PRN FEVER Atorvastatin Calcium 10 mg 02/27/18 22:00 03/07/18 22:07 Lipitor - PO 10 mg HS [facility] Administration Brimonidine Tartrate 1 drop 02/27/18 22:00 03/08/18 09:19 Alphagan 0.2% - OU 1 drop BID [facility]INE Administration Cholecalciferol 400 unit 02/28/18 10:00 03/08/18 09:18 Vitamin D3 - PO 400 unit DAILY [facility] Administration Diltiazem HCl 10 mg 03/01/18 09:40 03/01/18 10:59 Cardizem Injection - IVPUSH 10 mg Q4H PRN Administration TACHYCARDIA Dorzolamide HCl 1 drop 02/27/18 22:00 03/08/18 09:19 Trusopt 2% OD 1 drop BID [facility] Administration Furosemide 20 mg 03/07/18 10:00 03/08/18 09:18 Lasix - PO 20 mg DAILY [facility] Administration Heparin Sodium (Porcine) 1,000 unit 03/02/18 10:20 Heparin - IVPUSH PRN PRN Heparin Heparin Sodium (Porcine) 5,000 unit 03/02/18 10:20 Heparin - IVPUSH PRN PRN Heparin Heparin Sodium/Dextrose 25,000 units in 500 mls @ 20 mls/hr 03/02/18 10:30 13:40 Heparin Infusion - IVPB Not Given TITR VAL[facility]INE Protocol 1,000 UNITS/HR Lactobacillus Acidophilus 1 tab 03/01/18 10:00 03/08/18 09:18 Bacid - PO 1 tab DAILY [facility] Administration Latanoprost 1 drop 02/27/18 22:00 03/07/18 22:06 Xalatan 0.005% Eye Drops - OU 1 drop HS [facility]INE Administration Levothyroxine Sodium 75 mcg 02/28/18 07:00 03/08/18 06:13 Synthroid - PO 75 mcg DAILY@0700 [facility] Administration Losartan Potassium 25 mg 03/02/18 10:00 03/08/18 09:18 Cozaar - PO 25 mg DAILY [facility] Administration Multivitamins/Minerals/Vitamin C 1 tab 03/07/18 10:00 03/08/18 09:18 Tab-A-Vit - PO 1 tab DAILY [facility] Administration Pantoprazole Sodium 40 mg 02/28/18 10:00 03/08/18 09:18 Protonix - PO 40 mg DAILY [facility] Administration Polyethylene Glycol 17 gm 02/27/18 22:00 03/08/18 09:17 Miralax (For Daily Use) - PO 17 gm BID [facility] Administration Simethicone 80 mg 02/28/18 16:54 03/08/18 09:24 Mylicon - PO 80 mg Q4H PRN Administration GAS Sotalol HCl 80 mg 03/01/18 22:00 03/08/18 09:18 Betapace - PO 80 mg BID [facility] Administration Timolol Maleate 1 drop 02/27/18 22:00 03/08/18 09:20 Timoptic 0.5% OU 1 drop BID [facility] Administration Warfarin Sodium 5 mg 03/08/18 18:00 Coumadin - PO DAILY@1800 [facility] Impression: Biliary colic Aortic stenosis CHF Dysproteinemia Anemia CKD A/C Thyroid disease Plan: ERCP in future Monitor and 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
[2018-03-08] MEDS: WARFARIN NA 5 MG TABLET (UD) PO SCH (17:31)
[2018-03-08] MEDS ORDERED: WARFARIN NA 2 MG TABLET (UD) PO SCH (18:00)
[2018-03-08] MEDS: LATANOPROST 0.005% OPHTH SOLN 2.5ML BOTTLE OU SCH (22:26)
[2018-03-08] MEDS: ATORVASTATIN CA 10 MG TABLET (FP) PO SCH (22:26)
--- NOTE | 2018-03-09 05:58 | PN ---
Progress Note, Physician Chief Complaint: in bed nad no new c/o feels well, on IV heparin INR subtherapeutic expressed wish to go to SNF - Current Medication List Current Medications: Active Medications Acetaminophen (Tylenol -) 650 mg PO Q4H PRN PRN Reason: FEVER Atorvastatin Calcium (Lipitor -) 10 mg PO HS [facility]INE Last Admin: 03/08/18 22:26 Dose: 10 mg Brimonidine Tartrate (Alphagan 0.2% -) 1 drop OU BID [facility] Last Admin: 03/08/18 22:25 Dose: 1 drop Cholecalciferol (Vitamin D3 -) 400 unit PO DAILY [facility] Last Admin: 03/08/18 09:18 Dose: 400 unit Diltiazem HCl (Cardizem Injection -) 10 mg IVPUSH Q4H PRN PRN Reason: TACHYCARDIA Last Admin: 03/01/18 10:59 Dose: 10 mg Dorzolamide HCl (Trusopt 2%) 1 drop OD BID [facility] Last Admin: 03/08/18 22:25 Dose: 1 drop Furosemide (Lasix -) 20 mg PO DAILY [facility] Last Admin: 03/08/18 09:18 Dose: 20 mg Heparin Sodium (Porcine) (Heparin -) 1,000 unit IVPUSH PRN PRN PRN Reason: Heparin Heparin Sodium (Porcine) (Heparin -) 5,000 unit IVPUSH PRN PRN PRN Reason: Heparin Heparin Sodium/Dextrose (Heparin Infusion -) 25,000 units in 500 mls @ 20 mls/ hr IVPB TITR VALENTINE; 1,000 UNITS/HR PRN Reason: Protocol Last Admin: 03/08/18 15:47 Dose: 600 units/hr, 12 mls/hr Lactobacillus Acidophilus (Bacid -) 1 tab PO DAILY [facility] Last Admin: 03/08/18 09:18 Dose: 1 tab Latanoprost (Xalatan 0.005% Eye Drops -) 1 drop OU HS [facility] Last Admin: 03/08/18 22:26 Dose: 1 drop Levothyroxine Sodium (Synthroid -) 75 mcg PO DAILY@0700 [facility] Last Admin: 03/08/18 06:13 Dose: 75 mcg Losartan Potassium (Cozaar -) 25 mg PO DAILY [facility] Last Admin: 03/08/18 09:18 Dose: 25 mg Multivitamins/Minerals/Vitamin C (Tab-A-Vit -) 1 tab PO DAILY [facility] Last Admin: 03/08/18 09:18 Dose: 1 tab Pantoprazole Sodium (Protonix -) 40 mg PO DAILY [facility] Last Admin: 03/08/18 09:18 Dose: 40 mg Polyethylene Glycol (Miralax (For Daily Use) -) 17 gm PO BID [facility] Last Admin: 03/08/18 22:27 Dose: Not Given Simethicone (Mylicon -) 80 mg PO Q4H PRN PRN Reason: GAS Last Admin: 03/08/18 22:26 Dose: 80 mg Sotalol HCl (Betapace -) 80 mg PO BID [facility] Last Admin: 03/08/18 22:26 Dose: 80 mg Timolol Maleate (Timoptic 0.5%) 1 drop OU BID [facility] Last Admin: 03/08/18 22:25 Dose: 1 drop Warfarin Sodium (Coumadin -) 5 mg PO DAILY@1800 [facility] Last Admin: 03/08/18 17:31 Dose: 5 mg - Objective Vital Signs: Vital Signs Temperature 98.1 F 03/09/18 05:39 Pulse Rate 70 03/09/18 05:39 Respiratory Rate 20 03/09/18 05:39 Blood Pressure 114/66 03/09/18 05:39 O2 Sat by Pulse Oximetry (%) 97 03/08/18 21:00 Constitutional: Yes: No Distress, Calm Eyes: Yes: Conjunctiva Clear HENT: Yes: Atraumatic Neck: Yes: Supple Cardiovascular: Yes: Regular Rate and Rhythm Respiratory: Yes: CTA Bilaterally Gastrointestinal: Yes: Soft. No: Distention Genitourinary: No: CVA Tenderness - Left, CVA Tenderness - Right Musculoskeletal: No: Joint Stiffness, Joint Swelling Extremities: No: Cold, Cool, Cyanosis Edema: No Integumentary: No: Rash, Venous Stasis Changes Neurological: Yes: WNL, Alert, Oriented ...Motor Strength: WNL Psychiatric: Yes: WNL, Alert, Oriented. No: Agitated, Suicidal Ideation Labs: CBC, BMP 03/08/18 08:00 03/08/18 07:00 INR, PTT INR 1.44 (0.82-1.09) H 03/08/18 07:00 - ....Imaging Other: Report Reviewed Assessment/Plan 87 year old female with pmh CBD stone s/p ERCP s/p stent placement, atrial fibrillation (on Coumadin), Ao Stenosis, HTN, HLD, CAD s/p stents and pacemaker , hypothyroidism, diverticulitis, recurrent UTIs p/w generalized weakness s/p UTI on bactrim. Admitted with general weakness and shortness of breath, urinary retention. Coumadin toxicity Fluid overloaded, RAFib s/p CARLI CV per cardiology on IV heparin and po coumadin for aim INR 2-3 miralax prn for constipation PT rehab and CM eval for SNF falls PFX prognosis guarded d/w pt, d/w staff
[2018-03-09] MEDS: LEVOTHYROXINE NA 75 MCG TABLET (FP) PO SCH (06:58)
[2018-03-09 07:34] LABS: EOS % 6.2 % (0-4.5); HEMATOCRIT 30.9 % (32.4-45.2); HEMOGLOBIN 10.4 GM/dL (10.7-15.3); LYMPH % 21.8 % (8-40); MCH 31.8 pg (25.7-33.7); MCHC 33.7 g/dl (32.0-36.0); MEAN CELL VOLUME 94.5 fl (80-96); MEAN PLT VOLUME 8.7 fl (7.5-11.1); MONO % 15.3 % (3.8-10.2); NEUT % 54.7 % (42.8-82.8); PLATELET COUNT 151 K/MM3 (134-434); RBC 3.27 M/mm3 (3.60-5.2); RDW 14.2 % (11.6-15.6); WHITE BLOOD COUNT 5.7 K/mm3 (4.0-10.0)
[2018-03-09 07:42] LABS: INR 1.65 (0.82-1.09); PROTHROMBIN TIME (PATIENT) 18.7 SEC (9.7-13.0)
[2018-03-09 07:46] LABS: ALBUMIN 2.4 g/dl (3.4-5.0); ANION GAP 5 (8-16); BLOOD UREA NITROGEN 17 mg/dL (7-18); CALCIUM 9.1 mg/dL (8.5-10.1); CHLORIDE 98 mmol/L (98-107); CO2 35 mmol/L (21-32); CREATININE 0.7 mg/dL (0.55-1.02); GLUCOSE,RANDOM 87 mg/dL (74-106); POTASSIUM 4.2 mmol/L (3.5-5.1); SGOT/AST 14 U/L (15-37); SGPT/ALT 12 U/L (12-78); SODIUM 138 mmol/L (136-145)
[2018-03-09 07:49] LABS: ALK PHOS 73 U/L (45-117); BILIRUBIN,TOTAL 0.4 mg/dL (0.2-1.0); TOT PROT 6.3 g/dl (6.4-8.2)
[2018-03-09] MEDS: LOSARTAN POTASSIUM 25 MG TABLET PO SCH (09:32)
[2018-03-09] MEDS: PANTOPRAZOLE 40 MG TABLET (FP) PO SCH (09:32)
[2018-03-09] MEDS: FUROSEMIDE 20 MG TABLET (FP) PO SCH (09:32)
[2018-03-09] MEDS: LACTOBACILLUS ACIDOPHILUS 1 TABLET PO SCH (09:32)
[2018-03-09] MEDS: SOTALOL HCL 80 MG TABLET (FP) PO SCH ×2 (09:32→21:00)
[2018-03-09] MEDS: MULTIVITAMINS (DAILY MVI) TABLET (FP) PO SCH (09:33)
[2018-03-09] MEDS: CHOLECALCIFEROL (VITAMIN D3) 400 UNIT TABLET (FP) PO SCH (09:33)
[2018-03-09] MEDS: DORZOLAMIDE 2% HCL OPHTHALMIC SOLUTION 10 ML BOTTLE OD SCH ×2 (09:33→21:00)
[2018-03-09] MEDS: TIMOLOL 0.5% OPHTHALMIC SOL 5 ML BOTTLE OU SCH ×2 (09:34→21:02)
[2018-03-09] MEDS: BRIMONIDINE TARTRATE 0.2% OPHTHALMIC 5 ML BOTTLE OU SCH ×2 (09:34→21:02)
[2018-03-09] MEDS: SIMETHICONE 80 MG TAB.CHEW (FP) PO PRN ×2 (09:36→20:59)
[2018-03-09] MEDS: POLYETHYLENE GLYCOL 3350 119 GM BTL PO SCH ×2 (09:36→21:00)
--- NOTE | 2018-03-09 10:49 | PN ---
Progress Note, Physician History of Present Illness: Remains in SR post CARLI-guided DCCV. Fatigue improved, denies chest pain or dyspnea. - Current Medication List Current Medications: Active Medications Acetaminophen (Tylenol -) 650 mg PO Q4H PRN PRN Reason: FEVER Atorvastatin Calcium (Lipitor -) 10 mg PO HS [facility] Last Admin: 03/08/18 22:26 Dose: 10 mg Brimonidine Tartrate (Alphagan 0.2% -) 1 drop OU BID [facility]INE Last Admin: 03/09/18 09:34 Dose: 1 drop Cholecalciferol (Vitamin D3 -) 400 unit PO DAILY [facility] Last Admin: 03/09/18 09:33 Dose: 400 unit Diltiazem HCl (Cardizem Injection -) 10 mg IVPUSH Q4H PRN PRN Reason: TACHYCARDIA Last Admin: 03/01/18 10:59 Dose: 10 mg Dorzolamide HCl (Trusopt 2%) 1 drop OD BID [facility] Last Admin: 03/09/18 09:33 Dose: 1 drop Furosemide (Lasix -) 20 mg PO DAILY [facility] Last Admin: 03/09/18 09:32 Dose: 20 mg Heparin Sodium (Porcine) (Heparin -) 1,000 unit IVPUSH PRN PRN PRN Reason: Heparin Heparin Sodium (Porcine) (Heparin -) 5,000 unit IVPUSH PRN PRN PRN Reason: Heparin Heparin Sodium/Dextrose (Heparin Infusion -) 25,000 units in 500 mls @ 20 mls/ hr IVPB TITR VALENTINE; 1,000 UNITS/HR PRN Reason: Protocol Last Admin: 03/08/18 15:47 Dose: 600 units/hr, 12 mls/hr Lactobacillus Acidophilus (Bacid -) 1 tab PO DAILY [facility] Last Admin: 03/09/18 09:32 Dose: 1 tab Latanoprost (Xalatan 0.005% Eye Drops -) 1 drop OU HS [facility] Last Admin: 03/08/18 22:26 Dose: 1 drop Levothyroxine Sodium (Synthroid -) 75 mcg PO DAILY@0700 [facility] Last Admin: 03/09/18 06:58 Dose: 75 mcg Losartan Potassium (Cozaar -) 25 mg PO DAILY [facility] Last Admin: 03/09/18 09:32 Dose: 25 mg Multivitamins/Minerals/Vitamin C (Tab-A-Vit -) 1 tab PO DAILY [facility] Last Admin: 03/09/18 09:33 Dose: 1 tab Pantoprazole Sodium (Protonix -) 40 mg PO DAILY [facility] Last Admin: 03/09/18 09:32 Dose: 40 mg Polyethylene Glycol (Miralax (For Daily Use) -) 17 gm PO BID [facility] Last Admin: 03/09/18 09:36 Dose: 17 gm Simethicone (Mylicon -) 80 mg PO Q4H PRN PRN Reason: GAS Last Admin: 03/09/18 09:36 Dose: 80 mg Sotalol HCl (Betapace -) 80 mg PO BID [facility] Last Admin: 03/09/18 09:32 Dose: 80 mg Timolol Maleate (Timoptic 0.5%) 1 drop OU BID [facility] Last Admin: 03/09/18 09:34 Dose: 1 drop Warfarin Sodium (Coumadin -) 5 mg PO DAILY@1800 [facility] Last Admin: 03/08/18 17:31 Dose: 5 mg - Objective Vital Signs: Vital Signs Temperature 98.1 F 03/09/18 05:39 Pulse Rate 82 03/09/18 10:02 Respiratory Rate 20 03/09/18 05:39 Blood Pressure 114/66 03/09/18 05:39 O2 Sat by Pulse Oximetry (%) 90 L 03/09/18 10:02 Constitutional: Yes: No Distress, Calm, Thin Neck: Yes: Supple Cardiovascular: Yes: Pulse Irregular, Murmur (2/6 SM) Respiratory: Yes: Regular, Diminished, On Nasal O2 Gastrointestinal: Yes: Normal Bowel Sounds, Soft Edema: No Labs: CBC, BMP 03/09/18 06:00 03/09/18 06:00 INR, PTT INR 1.65 (0.82-1.09) H 03/09/18 06:00 Problem List - Problems (1) CHF exacerbation Code(s): I50.9 - HEART FAILURE, UNSPECIFIED Qualifiers: Heart failure type: diastolic Qualified Code(s): I50.33 - Acute on chronic diastolic (congestive) heart failure (2) Coronary artery disease Code(s): I25.10 - ATHSCL HEART DISEASE OF [place] CORONARY ARTERY W/O ANG PCTRS Qualifiers: Coronary Disease-Associated Artery/Lesion type: [place] artery [place] vs. transplanted heart: [place] heart Associated angina: without angina Qualified Code(s): I25.10 - Atherosclerotic heart disease of [place] coronary artery without angina pectoris (3) History of pacemaker Code(s): Z95.0 - PRESENCE OF CARDIAC PACEMAKER (4) Hyperlipidemia Code(s): E78.5 - HYPERLIPIDEMIA, UNSPECIFIED Qualifiers: Hyperlipidemia type: pure hypercholesterolemia Qualified Code(s): E78.00 - Pure hypercholesterolemia, unspecified (5) Hypertension Code(s): I10 - ESSENTIAL (PRIMARY) HYPERTENSION Qualifiers: Hypertension type: essential hypertension Qualified Code(s): I10 - Essential (primary) hypertension (6) Hypothyroidism Code(s): E03.9 - HYPOTHYROIDISM, UNSPECIFIED Qualifiers: Hypothyroidism type: unspecified Qualified Code(s): E03.9 - Hypothyroidism , unspecified (7) Neurocardiogenic syncope Code(s): R55 - SYNCOPE AND COLLAPSE (8) Pacemaker Code(s): Z95.0 - PRESENCE OF CARDIAC PACEMAKER (9) Paroxysmal atrial fibrillation Code(s): I48.0 - PAROXYSMAL ATRIAL FIBRILLATION (10) MGUS (monoclonal gammopathy of unknown significance) Code(s): D47.2 - MONOCLONAL GAMMOPATHY (11) History of cardioversion Code(s): Z98.890 - OTHER SPECIFIED POSTPROCEDURAL STATES (12) Severe aortic stenosis Code(s): I35.0 - NONRHEUMATIC AORTIC (VALVE) STENOSIS Assessment/Plan Echocardiography 01/06/2018 revealed normal LV size with mild LVH normal LV function, abnormal LV compliance, moderate-severe aortic valve stenosis with MG 32 mmHg, RUBY 0.7 cm^2, mild AR, mildly dilated aortic root, moderate MR, TR, mild AL, RVSP 40 mmHg 1. Acute on chronic class II NYHA classification LV failure related to diastolic LV dysfunction, resolved 2. Moderate-severe aortic valve stenosis 3. Paroxysmal atrial fibrillation currently in sinus rhythm post cardioversion with subtherapeutic INR, [id number] score of 6 4. CAD angina pectoris, stable 5. 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 HTN/HCVD 7. Hyperlipidemia 8. Hypothyroidism 9. CKD with acute renal insufficiency, resolved 10. Abdominal pain, resolved 11. 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 Continue Losartan 25 qd with close monitoring of renal function 2. Continue Betapace 80 bid with close monitoring of QTc 3. Continue Lipitor 10 qhs 4. Continue Heparin gtt-> Coumadin per INR, maintain INR 2-3 5. Continue PO Lasix 20 qd 6. As outlined above in reference to management of her , to be deferred pending ERCP in 4 weeks
[2018-03-09] MEDS: HEPARIN INFUSION - 25,000 UNITS/500 ML INFUS.BAG IVPB SCH (17:33)
[2018-03-09] MEDS: WARFARIN NA 5 MG TABLET (UD) PO SCH (17:34)
[2018-03-09] MEDS: ATORVASTATIN CA 10 MG TABLET (FP) PO SCH (21:00)
[2018-03-09] MEDS: LATANOPROST 0.005% OPHTH SOLN 2.5ML BOTTLE OU SCH (21:02)
[2018-03-09] MEDS ORDERED: PT OWN MED DRAWER 7, Y5N ONE (22:15)
--- NOTE | 2018-03-10 06:05 | DS ---
Physical Examination Vital Signs: Vital Signs Temperature 98.0 F 03/09/18 17:32 Pulse Rate 68 03/09/18 17:32 Respiratory Rate 20 03/09/18 21:00 Blood Pressure 116/76 03/09/18 17:32 O2 Sat by Pulse Oximetry (%) 96 03/09/18 21:00 Findings/Remarks: feels well but generally weak, lives alone, asked for SNF either at [facility] or [place], if not able to will go home with VNS, home PT; d/w CM; scripts done as needed; INR 1.7 on IV heparin and po coumadin; f/u labs; I d/w pt and staff, also as previously discussed with pt's family, daughter, DC planning and f/u needed - see DC instructions t time 45 min Constitutional: Yes: No Distress, Calm Eyes: Yes: Conjunctiva Clear HENT: Yes: Atraumatic Neck: Yes: Supple Cardiovascular: Yes: Regular Rate and Rhythm Respiratory: Yes: CTA Bilaterally Gastrointestinal: Yes: Soft. No: Distention Renal/: No: CVA Tenderness - Left, CVA Tenderness - Right Musculoskeletal: No: Joint Stiffness, Joint Swelling Extremities: No: Cold, Cool, Cyanosis Edema: No Integumentary: No: Rash, Venous Stasis Changes Neurological: Yes: WNL, Alert, Oriented ...Motor Strength: WNL Psychiatric: Yes: WNL, Alert, Oriented. No: Agitated, Suicidal Ideation Labs: CBC, BMP 03/09/18 06:00 03/09/18 06:00 Discharge Summary Reason For Visit: ACUTE CHRONIC CONGESTIVE HEART FAILURE Current Active Problems CHF exacerbation (Acute) Diarrhea (Acute) History of cardioversion (Acute) Hyponatremia (Acute) MGUS (monoclonal gammopathy of unknown significance) (Acute) Severe aortic stenosis (Acute) Procedures: Principal: admitted with rapid AFib, fluid overloaded, s/p UTI/ colitis, coumadin toxicity Other Procedures: CARLI CV per cardiology; also seen by heme, GI; coumadin per INR ;. PT rehab; Hospital Course: improved with above; DC planning and f/u as advised Condition: Improved - Instructions Diet, Activity, Other Instructions: f/u PCP and check labs in 1-2 weeks afetr DC from SNF; cardiology and GI f/u in 1 month anticoagulation with coumadin for [address] Caputo to remove stent, then f/u with cardiology dr Mccord for Ao Valve replacement management, TAVR; falls PFX; PT rehab, VNS; RTER if worse or recurrent; Referrals: Jacque Richardson [Primary Care Provider] - Minh Caputo MD [Staff Physician] - Lance Mccord MD [Staff Physician] - Everton Malik MD [Staff Physician] - Disposition: [facility] - Home Medications Comprehensive Discharge Medication List: Ambulatory Orders Warfarin Na [Coumadin -] 1 mg PO DAILY@1800 1 Days tablet NS 11/10/16 Losartan Potassium [Cozaar -] 50 mg PO BID 12/16/16 Simvastatin 20 mg PO DAILY 12/16/16 Amlodipine Besylate 5 mg PO DAILY 03/15/17 Ascorbic Acid [Vitamin C] 500 mg PO DAILY 03/24/17 Cholecalciferol (Vitamin D3) [Vitamin D -] 400 unit PO DAILY 03/24/17 Methenamine Hippurate [Hiprex [Nf] -] 2 gm PO BID 03/24/17 Aspirin 81 mg PO DAILY 11/05/17 Dorzolamide HCl [Trusopt 2% -] 1 drop OD BID 11/05/17 Brimonidine Tartrate/Timolol [Combigan 0.2%-0.5% Eye Drops] 1 drop OU BID Acetaminophen [Tylenol .Regular Strength -] 650 mg PO Q4H PRN tablet 11/22/17 Pantoprazole Sodium [Protonix -] 40 mg PO DAILY #90 tablet.ec 11/22/17 Polyethylene Glycol 3350 [Miralax 119 gm Btl -] 17 gm PO BID bottle 11/22/17 Ursodiol [Actigal -] 300 mg PO BID #90 capsule 11/22/17 Atenolol [Tenormin -] 100 mg PO HS 02/23/18 Latanoprost 0.005% Eye Drops [Xalatan 0.005% Eye Drops -] 2.5 ml OU HS 02/23/18 Levothyroxine [Synthroid -] 50 mcg PO MoWeFr@0700 02/23/18 Sulfamethoxazole/Trimethoprim [Bactrim Ds Tablet] 1 each PO BID #14 tablet 02/23
[2018-03-10] MEDS: LEVOTHYROXINE NA 75 MCG TABLET (FP) PO SCH (06:07)
[2018-03-10 08:10] LABS: INR 1.72 (0.82-1.09); PROTHROMBIN TIME (PATIENT) 19.4 SEC (9.7-13.0)
[2018-03-10 08:13] LABS: ACTIVATED PTT 65.4 SECONDS (26.9-34.4)
[2018-03-10] MEDS: MULTIVITAMINS (DAILY MVI) TABLET (FP) PO SCH (09:51)
[2018-03-10] MEDS: BRIMONIDINE TARTRATE 0.2% OPHTHALMIC 5 ML BOTTLE OU SCH ×2 (09:52→22:51)
[2018-03-10] MEDS: FUROSEMIDE 20 MG TABLET (FP) PO SCH (09:52)
[2018-03-10] MEDS: SOTALOL HCL 80 MG TABLET (FP) PO SCH ×2 (09:52→23:02)
[2018-03-10] MEDS: LACTOBACILLUS ACIDOPHILUS 1 TABLET PO SCH (09:52)
[2018-03-10] MEDS: TIMOLOL 0.5% OPHTHALMIC SOL 5 ML BOTTLE OU SCH ×2 (09:52→22:54)
[2018-03-10] MEDS: SIMETHICONE 80 MG TAB.CHEW (FP) PO PRN ×3 (09:52→22:21)
[2018-03-10] MEDS: DORZOLAMIDE 2% HCL OPHTHALMIC SOLUTION 10 ML BOTTLE OD SCH ×2 (09:52→22:56)
[2018-03-10] MEDS: PANTOPRAZOLE 40 MG TABLET (FP) PO SCH (09:52)
[2018-03-10] MEDS: CHOLECALCIFEROL (VITAMIN D3) 400 UNIT TABLET (FP) PO SCH (09:52)
[2018-03-10] MEDS: LOSARTAN POTASSIUM 25 MG TABLET PO SCH (09:52)
[2018-03-10] MEDS: POLYETHYLENE GLYCOL 3350 119 GM BTL PO SCH (09:52)
[2018-03-10] MEDS: HEPARIN INFUSION - 25,000 UNITS/500 ML INFUS.BAG IVPB SCH ×2 (11:09→17:17)
--- NOTE | 2018-03-10 11:26 | PN ---
Progress Note (short form) - Note Progress Note: Patient seen and examined Complains of suprapubic pains Last Vital Signs Temp Pulse Resp BP Pulse Ox 97.4 F L 66 20 124/75 95 03/10/18 10:00 03/10/18 10:00 03/10/18 10:00 03/10/18 10:00 03/10/18 09:00 HEENT: FANY, EOM Intact Oropharynx thrush, No mucositis Cor: RSR, systolic murmur Lungs: rales at bases Abd: Soft, Normal bowel sounds, No organomegaly Ext:No significant edema Skin: No rashes, Integument intact CBC, BMP 03/09/18 06:00 03/09/18 06:00 Current Medications Generic Name Dose Route Start Last Admin Trade Name Freq PRN Reason Stop Dose Admin Acetaminophen 650 mg 02/27/18 20:03 Tylenol - PO Q4H PRN FEVER Atorvastatin Calcium 10 mg 02/27/18 22:00 03/09/18 21:00 Lipitor - PO 10 mg HS VALENTINE Administration Brimonidine Tartrate 1 drop 02/27/18 22:00 03/10/18 09:52 Alphagan 0.2% - OU 1 drop BID [facility]ENTINE Administration Cholecalciferol 400 unit 02/28/18 10:00 03/10/18 09:52 Vitamin D3 - PO 400 unit DAILY [facility] Administration Diltiazem HCl 10 mg 03/01/18 09:40 03/01/18 10:59 Cardizem Injection - IVPUSH 10 mg Q4H PRN Administration TACHYCARDIA Dorzolamide HCl 1 drop 02/27/18 22:00 03/10/18 09:52 Trusopt 2% OD 1 drop BID [facility] Administration Furosemide 20 mg 03/07/18 10:00 03/10/18 09:52 Lasix - PO 20 mg DAILY [facility] Administration Heparin Sodium (Porcine) 1,000 unit 03/02/18 10:20 Heparin - IVPUSH PRN PRN Heparin Heparin Sodium (Porcine) 5,000 unit 03/02/18 10:20 Heparin - IVPUSH PRN PRN Heparin Heparin Sodium/Dextrose 25,000 units in 500 mls @ 20 mls/hr 03/02/18 10:30 11:09 Heparin Infusion - IVPB 600 units/hr TITR VALENTINE 12 mls/hr Protocol Administration 1,000 UNITS/HR Lactobacillus Acidophilus 1 tab 03/01/18 10:00 03/10/18 09:52 Bacid - PO 1 tab DAILY [facility] Administration Latanoprost 1 drop 02/27/18 22:00 03/09/18 21:02 Xalatan 0.005% Eye Drops - OU 1 drop HS [facility] Administration Levothyroxine Sodium 75 mcg 02/28/18 07:00 03/10/18 06:07 Synthroid - PO 75 mcg DAILY@0700 [facility] Administration Losartan Potassium 25 mg 03/02/18 10:00 03/10/18 09:52 Cozaar - PO 25 mg DAILY [facility] Administration Multivitamins/Minerals/Vitamin C 1 tab 03/07/18 10:00 03/10/18 09:51 Tab-A-Vit - PO 1 tab DAILY [facility] Administration Pantoprazole Sodium 40 mg 02/28/18 10:00 03/10/18 09:52 Protonix - PO 40 mg DAILY [facility] Administration Polyethylene Glycol 17 gm 02/27/18 22:00 03/10/18 09:52 Miralax (For Daily Use) - PO 17 gm BID [facility] Administration Simethicone 80 mg 02/28/18 16:54 03/10/18 09:52 Mylicon - PO 80 mg Q4H PRN Administration GAS Sotalol HCl 80 mg 03/01/18 22:00 03/10/18 09:52 Betapace - PO 80 mg BID [facility] Administration Timolol Maleate 1 drop 02/27/18 22:00 03/10/18 09:52 Timoptic 0.5% OU 1 drop BID [facility] Administration Warfarin Sodium 5 mg 03/08/18 18:00 03/09/18 17:34 Coumadin - PO 5 mg DAILY@1800 [facility] Administration Impression: CHF A/C Dysproteinemia HBP HLD Plan: follow up in office as outpatient.
--- NOTE | 2018-03-10 12:54 | PN ---
Progress Note, Physician History of Present Illness: Remains in SR post CARLI-guided DCCV. Fatigue improved, denies chest pain or dyspnea. - Current Medication List Current Medications: Active Medications Acetaminophen (Tylenol -) 650 mg PO Q4H PRN PRN Reason: FEVER Atorvastatin Calcium (Lipitor -) 10 mg PO HS [facility] Last Admin: 03/09/18 21:00 Dose: 10 mg Brimonidine Tartrate (Alphagan 0.2% -) 1 drop OU BID [facility] Last Admin: 03/10/18 09:52 Dose: 1 drop Cholecalciferol (Vitamin D3 -) 400 unit PO DAILY [facility] Last Admin: 03/10/18 09:52 Dose: 400 unit Diltiazem HCl (Cardizem Injection -) 10 mg IVPUSH Q4H PRN PRN Reason: TACHYCARDIA Last Admin: 03/01/18 10:59 Dose: 10 mg Dorzolamide HCl (Trusopt 2%) 1 drop OD BID [facility] Last Admin: 03/10/18 09:52 Dose: 1 drop Furosemide (Lasix -) 20 mg PO DAILY [facility] Last Admin: 03/10/18 09:52 Dose: 20 mg Heparin Sodium (Porcine) (Heparin -) 1,000 unit IVPUSH PRN PRN PRN Reason: Heparin Heparin Sodium (Porcine) (Heparin -) 5,000 unit IVPUSH PRN PRN PRN Reason: Heparin Heparin Sodium/Dextrose (Heparin Infusion -) 25,000 units in 500 mls @ 20 mls/ hr IVPB TITR [facility]; 1,000 UNITS/HR PRN Reason: Protocol Last Admin: 03/10/18 11:09 Dose: 600 units/hr, 12 mls/hr Lactobacillus Acidophilus (Bacid -) 1 tab PO DAILY [facility] Last Admin: 03/10/18 09:52 Dose: 1 tab Latanoprost (Xalatan 0.005% Eye Drops -) 1 drop OU HS [facility] Last Admin: 03/09/18 21:02 Dose: 1 drop Levothyroxine Sodium (Synthroid -) 75 mcg PO DAILY@0700 [facility] Last Admin: 03/10/18 06:07 Dose: 75 mcg Losartan Potassium (Cozaar -) 25 mg PO DAILY [facility] Last Admin: 03/10/18 09:52 Dose: 25 mg Multivitamins/Minerals/Vitamin C (Tab-A-Vit -) 1 tab PO DAILY [facility] Last Admin: 03/10/18 09:51 Dose: 1 tab Pantoprazole Sodium (Protonix -) 40 mg PO DAILY [facility] Last Admin: 03/10/18 09:52 Dose: 40 mg Polyethylene Glycol (Miralax (For Daily Use) -) 17 gm PO BID [facility] Last Admin: 03/10/18 09:52 Dose: 17 gm Simethicone (Mylicon -) 80 mg PO Q4H PRN PRN Reason: GAS Last Admin: 03/10/18 09:52 Dose: 80 mg Sotalol HCl (Betapace -) 80 mg PO BID [facility] Last Admin: 03/10/18 09:52 Dose: 80 mg Timolol Maleate (Timoptic 0.5%) 1 drop OU BID [facility] Last Admin: 03/10/18 09:52 Dose: 1 drop Warfarin Sodium (Coumadin -) 5 mg PO DAILY@1800 [facility] Last Admin: 03/09/18 17:34 Dose: 5 mg - Objective Vital Signs: Vital Signs Temperature 97.4 F L 03/10/18 10:00 Pulse Rate 66 03/10/18 10:00 Respiratory Rate 20 03/10/18 10:00 Blood Pressure 124/75 03/10/18 10:00 O2 Sat by Pulse Oximetry (%) 95 03/10/18 09:00 Constitutional: Yes: No Distress, Calm, Thin Neck: Yes: Supple Cardiovascular: Yes: Pulse Irregular, Murmur (3/6 SM) Respiratory: Yes: Regular, Diminished Gastrointestinal: Yes: Normal Bowel Sounds, Soft Edema: No Labs: CBC, BMP 03/09/18 06:00 03/09/18 06:00 INR, PTT INR 1.72 (0.82-1.09) H 03/10/18 06:00 Problem List - Problems (1) CHF exacerbation Code(s): I50.9 - HEART FAILURE, UNSPECIFIED Qualifiers: Heart failure type: diastolic Qualified Code(s): I50.33 - Acute on chronic diastolic (congestive) heart failure (2) Coronary artery disease Code(s): I25.10 - ATHSCL HEART DISEASE OF [place] CORONARY ARTERY W/O ANG PCTRS Qualifiers: Coronary Disease-Associated Artery/Lesion type: [place] artery [place] vs. transplanted heart: [place] heart Associated angina: without angina Qualified Code(s): I25.10 - Atherosclerotic heart disease of [place] coronary artery without angina pectoris (3) History of pacemaker Code(s): Z95.0 - PRESENCE OF CARDIAC PACEMAKER (4) Hyperlipidemia Code(s): E78.5 - HYPERLIPIDEMIA, UNSPECIFIED Qualifiers: Hyperlipidemia type: pure hypercholesterolemia Qualified Code(s): E78.00 - Pure hypercholesterolemia, unspecified (5) Hypertension Code(s): I10 - ESSENTIAL (PRIMARY) HYPERTENSION Qualifiers: Hypertension type: essential hypertension Qualified Code(s): I10 - Essential (primary) hypertension (6) Hypothyroidism Code(s): E03.9 - HYPOTHYROIDISM, UNSPECIFIED Qualifiers: Hypothyroidism type: unspecified Qualified Code(s): E03.9 - Hypothyroidism , unspecified (7) Neurocardiogenic syncope Code(s): R55 - SYNCOPE AND COLLAPSE (8) Pacemaker Code(s): Z95.0 - PRESENCE OF CARDIAC PACEMAKER (9) Paroxysmal atrial fibrillation Code(s): I48.0 - PAROXYSMAL ATRIAL FIBRILLATION (10) MGUS (monoclonal gammopathy of unknown significance) Code(s): D47.2 - MONOCLONAL GAMMOPATHY (11) History of cardioversion Code(s): Z98.890 - OTHER SPECIFIED POSTPROCEDURAL STATES (12) Severe aortic stenosis Code(s): I35.0 - NONRHEUMATIC AORTIC (VALVE) STENOSIS Assessment/Plan Echocardiography 01/06/2018 revealed normal LV size with mild LVH normal LV function, abnormal LV compliance, moderate-severe aortic valve stenosis with MG 32 mmHg, RUBY 0.7 cm^2, mild AR, mildly dilated aortic root, moderate MR, TR, mild [place], RVSP 40 mmHg 1. Acute on chronic class II NYHA classification LV failure related to diastolic LV dysfunction, resolved 2. Moderate-severe aortic valve stenosis 3. Paroxysmal atrial fibrillation currently in sinus rhythm post cardioversion with subtherapeutic INR, [id number] score of 6 4. CAD angina pectoris, stable 5. 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 HTN/HCVD 7. Hyperlipidemia 8. Hypothyroidism 9. CKD with acute renal insufficiency, resolved 10. Abdominal pain, resolved 11. 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 Continue Losartan 25 qd with close monitoring of renal function 2. Continue Betapace 80 bid with close monitoring of QTc 3. Continue Lipitor 10 qhs 4. Continue Heparin gtt-> Coumadin per INR, maintain INR 2-3 5. Continue PO Lasix 20 qd 6. As outlined above in reference to management of her , to be deferred pending ERCP in 4 weeks
--- NOTE | 2018-03-10 15:11 | PN ---
GI Progress Note Subjective: GI Note: Has begun to ambulate with help. Still gets crampy abdominal pain but blames this on not being able to eat the chopped diet. Wants it reverted to normal. - Objective Vital Signs: Vital Signs Temperature 97.6 F 03/10/18 13:36 Pulse Rate 66 03/10/18 13:36 Respiratory Rate 18 03/10/18 13:36 Blood Pressure 122/67 03/10/18 13:36 O2 Sat by Pulse Oximetry (%) 95 03/10/18 09:00 Constitutional: Calm Gastrointestinal Inspection: Yes: Distention ...Auscultate: Yes: Normoactive Bowel Sounds ...Palpate: Yes: Soft, Other (nontender) ...Percussion: Yes: Tympanitic Labs: CBC, BMP 03/09/18 06:00 03/09/18 06:00 INR, PTT INR 1.72 (0.82-1.09) H 03/10/18 06:00 Assessment/Plan No GI objections to discharge on Miralax. Will arrange repeat ERCP in 4 weeks when A/C can be interrupted. Problem List - Problems (1) Diarrhea Code(s): R19.7 - DIARRHEA, UNSPECIFIED (2) Bile duct calculus Code(s): K80.50 - CALCULUS OF BILE DUCT W/O CHOLANGITIS OR CHOLECYST W/O OBST Qualifiers: Cholecystitis presence: without cholecystitis Biliary obstruction: with biliary obstruction Qualified Code(s): K80.51 - Calculus of bile duct without cholangitis or cholecystitis with obstruction (3) Lower esophageal ring ([place]) Code(s): K22.2 - ESOPHAGEAL OBSTRUCTION
[2018-03-10] MEDS: WARFARIN NA 5 MG TABLET (UD) PO SCH (17:17)
[2018-03-10] MEDS ORDERED: PT OWN MED DRAWER 7, Y5N ONE (22:08)
[2018-03-10] MEDS: ATORVASTATIN CA 10 MG TABLET (FP) PO SCH (22:56)
[2018-03-10] MEDS: LATANOPROST 0.005% OPHTH SOLN 2.5ML BOTTLE OU SCH (22:59)
[2018-03-11] MEDS: POLYETHYLENE GLYCOL 3350 119 GM BTL PO SCH ×3 (03:41→22:19)
[2018-03-11] MEDS: LEVOTHYROXINE NA 75 MCG TABLET (FP) PO SCH (06:24)
--- NOTE | 2018-03-11 06:59 | PN ---
Progress Note, Physician Chief Complaint: in bed nad VSS; no new c/o except generally weak; walked to the bathroom in her room and felt weak daughter at bedside events consults meds and plan d/w pt and daughter they both expressed wish to go to SNF from here, pt lives alone and she is deconditioned and generally weak and would benefit from rehab; I d/w MIRAN[facility] - awaiting insurance decision for SNF - Current Medication List Current Medications: Active Medications Acetaminophen (Tylenol -) 650 mg PO Q4H PRN PRN Reason: FEVER Atorvastatin Calcium (Lipitor -) 10 mg PO HS [facility] Last Admin: 03/10/18 22:56 Dose: 10 mg Brimonidine Tartrate (Alphagan 0.2% -) 1 drop OU BID [facility] Last Admin: 03/10/18 22:51 Dose: 1 drop Cholecalciferol (Vitamin D3 -) 400 unit PO DAILY [facility] Last Admin: 03/10/18 09:52 Dose: 400 unit Diltiazem HCl (Cardizem Injection -) 10 mg IVPUSH Q4H PRN PRN Reason: TACHYCARDIA Last Admin: 03/01/18 10:59 Dose: 10 mg Dorzolamide HCl (Trusopt 2%) 1 drop OD BID [facility] Last Admin: 03/10/18 22:56 Dose: 1 drop Furosemide (Lasix -) 20 mg PO DAILY [facility] Last Admin: 03/10/18 09:52 Dose: 20 mg Heparin Sodium (Porcine) (Heparin -) 1,000 unit IVPUSH PRN PRN PRN Reason: Heparin Heparin Sodium (Porcine) (Heparin -) 5,000 unit IVPUSH PRN PRN PRN Reason: Heparin Heparin Sodium/Dextrose (Heparin Infusion -) 25,000 units in 500 mls @ 20 mls/ hr IVPB TITR [facility]; 1,000 UNITS/HR PRN Reason: Protocol Last Admin: 03/10/18 17:17 Dose: 600 units/hr, 12 mls/hr Lactobacillus Acidophilus (Bacid -) 1 tab PO DAILY [facility] Last Admin: 03/10/18 09:52 Dose: 1 tab Latanoprost (Xalatan 0.005% Eye Drops -) 1 drop OU HS [facility] Last Admin: 03/10/18 22:59 Dose: 1 drop Levothyroxine Sodium (Synthroid -) 75 mcg PO DAILY@0700 [facility] Last Admin: 03/11/18 06:24 Dose: 75 mcg Losartan Potassium (Cozaar -) 25 mg PO DAILY [facility] Last Admin: 03/10/18 09:52 Dose: 25 mg Multivitamins/Minerals/Vitamin C (Tab-A-Vit -) 1 tab PO DAILY [facility] Last Admin: 03/10/18 09:51 Dose: 1 tab Pantoprazole Sodium (Protonix -) 40 mg PO DAILY [facility] Last Admin: 03/10/18 09:52 Dose: 40 mg Polyethylene Glycol (Miralax (For Daily Use) -) 17 gm PO BID [facility] Last Admin: 03/11/18 03:41 Dose: Not Given Simethicone (Mylicon -) 80 mg PO Q4H PRN PRN Reason: GAS Last Admin: 03/10/18 22:21 Dose: 80 mg Sotalol HCl (Betapace -) 80 mg PO BID [facility] Last Admin: 03/10/18 23:02 Dose: 80 mg Timolol Maleate (Timoptic 0.5%) 1 drop OU BID [facility] Last Admin: 03/10/18 22:54 Dose: 1 drop Warfarin Sodium (Coumadin -) 5 mg PO DAILY@1800 [facility] Last Admin: 03/10/18 17:17 Dose: 5 mg - Objective Vital Signs: Vital Signs Temperature 98.4 F 03/10/18 22:00 Pulse Rate 86 03/10/18 22:00 Respiratory Rate 22 03/10/18 22:00 Blood Pressure 144/96 03/10/18 22:00 O2 Sat by Pulse Oximetry (%) 95 03/10/18 21:00 Constitutional: Yes: No Distress, Calm Eyes: Yes: Conjunctiva Clear HENT: Yes: Atraumatic Neck: Yes: Supple Cardiovascular: Yes: Regular Rate and Rhythm Respiratory: Yes: CTA Bilaterally Gastrointestinal: Yes: Soft. No: Distention Genitourinary: No: CVA Tenderness - Left, CVA Tenderness - Right Musculoskeletal: No: Joint Stiffness, Joint Swelling Extremities: No: Cold, Cool, Cyanosis Edema: No Integumentary: No: Rash, Venous Stasis Changes Neurological: Yes: WNL, Alert, Oriented ...Motor Strength: WNL Psychiatric: Yes: WNL, Alert, Oriented. No: Agitated, Suicidal Ideation Labs: CBC, BMP 03/09/18 06:00 03/09/18 06:00 INR, PTT INR 1.72 (0.82-1.09) H 03/10/18 06:00 - ....Imaging Other: Report Reviewed Assessment/Plan 87 year old female with pmh CBD stone s/p ERCP s/p stent placement, atrial fibrillation (on Coumadin), Ao Stenosis, HTN, HLD, CAD s/p stents and pacemaker , hypothyroidism, diverticulitis, recurrent UTIs p/w generalized weakness s/p UTI on bactrim. Admitted with general weakness and shortness of breath, urinary retention. Coumadin toxicity s/p Fluid overload and RAFib - s/p CARLI CV per cardiology on IV heparin and po coumadin for aim INR 2-3 f/u labs miralax prn for constipation PT rehab and CM eval for SNF falls PFX prognosis guarded d/w pt and daughter, d/w staff
[2018-03-11] MEDS: SIMETHICONE 80 MG TAB.CHEW (FP) PO PRN ×3 (08:29→22:18)
[2018-03-11] MEDS ORDERED: PT OWN MED DRAWER 7, Y5N ONE ×2 (09:37→21:28)
[2018-03-11] MEDS: BRIMONIDINE TARTRATE 0.2% OPHTHALMIC 5 ML BOTTLE OU SCH ×2 (09:46→22:19)
[2018-03-11] MEDS: CHOLECALCIFEROL (VITAMIN D3) 400 UNIT TABLET (FP) PO SCH (09:47)
[2018-03-11] MEDS: PANTOPRAZOLE 40 MG TABLET (FP) PO SCH (09:47)
[2018-03-11] MEDS: LACTOBACILLUS ACIDOPHILUS 1 TABLET PO SCH (09:47)
[2018-03-11] MEDS: TIMOLOL 0.5% OPHTHALMIC SOL 5 ML BOTTLE OU SCH ×2 (09:47→22:19)
[2018-03-11] MEDS: FUROSEMIDE 20 MG TABLET (FP) PO SCH (09:47)
[2018-03-11] MEDS: DORZOLAMIDE 2% HCL OPHTHALMIC SOLUTION 10 ML BOTTLE OD SCH ×2 (09:47→22:19)
[2018-03-11] MEDS: MULTIVITAMINS (DAILY MVI) TABLET (FP) PO SCH (09:47)
[2018-03-11] MEDS: LOSARTAN POTASSIUM 25 MG TABLET PO SCH (09:47)
[2018-03-11] MEDS: SOTALOL HCL 80 MG TABLET (FP) PO SCH ×2 (09:47→22:18)
[2018-03-11 10:10] LABS: INR 1.9 (0.82-1.09); PROTHROMBIN TIME (PATIENT) 21.5 SEC (9.7-13.0)
[2018-03-11 10:13] LABS: ACTIVATED PTT 64.4 SECONDS (26.9-34.4)
[2018-03-11] MEDS: HEPARIN INFUSION - 25,000 UNITS/500 ML INFUS.BAG IVPB SCH (12:03)
--- NOTE | 2018-03-11 17:21 | PN ---
Progress Note, Physician History of Present Illness: Remains in SR post CARLI-guided DCCV. Debilitated and requires assistance when ambulating, denies chest pain or dyspnea. - Current Medication List Current Medications: Active Medications Acetaminophen (Tylenol -) 650 mg PO Q4H PRN PRN Reason: FEVER Atorvastatin Calcium (Lipitor -) 10 mg PO HS [facility] Last Admin: 03/10/18 22:56 Dose: 10 mg Brimonidine Tartrate (Alphagan 0.2% -) 1 drop OU BID [facility] Last Admin: 03/11/18 09:46 Dose: 1 drop Cholecalciferol (Vitamin D3 -) 400 unit PO DAILY [facility] Last Admin: 03/11/18 09:47 Dose: 400 unit Diltiazem HCl (Cardizem Injection -) 10 mg IVPUSH Q4H PRN PRN Reason: TACHYCARDIA Last Admin: 03/01/18 10:59 Dose: 10 mg Dorzolamide HCl (Trusopt 2%) 1 drop OD BID [facility] Last Admin: 03/11/18 09:47 Dose: 1 drop Furosemide (Lasix -) 20 mg PO DAILY [facility] Last Admin: 03/11/18 09:47 Dose: 20 mg Heparin Sodium (Porcine) (Heparin -) 1,000 unit IVPUSH PRN PRN PRN Reason: Heparin Heparin Sodium (Porcine) (Heparin -) 5,000 unit IVPUSH PRN PRN PRN Reason: Heparin Heparin Sodium/Dextrose (Heparin Infusion -) 25,000 units in 500 mls @ 20 mls/ hr IVPB TITR [facility]; 1,000 UNITS/HR PRN Reason: Protocol Last Admin: 03/11/18 12:03 Dose: 600 units/hr, 12 mls/hr Lactobacillus Acidophilus (Bacid -) 1 tab PO DAILY [facility] Last Admin: 03/11/18 09:47 Dose: 1 tab Latanoprost (Xalatan 0.005% Eye Drops -) 1 drop OU HS [facility] Last Admin: 03/10/18 22:59 Dose: 1 drop Levothyroxine Sodium (Synthroid -) 75 mcg PO DAILY@0700 [facility] Last Admin: 03/11/18 06:24 Dose: 75 mcg Losartan Potassium (Cozaar -) 25 mg PO DAILY [facility] Last Admin: 03/11/18 09:47 Dose: 25 mg Multivitamins/Minerals/Vitamin C (Tab-A-Vit -) 1 tab PO DAILY [facility] Last Admin: 03/11/18 09:47 Dose: 1 tab Pantoprazole Sodium (Protonix -) 40 mg PO DAILY [facility] Last Admin: 03/11/18 09:47 Dose: 40 mg Polyethylene Glycol (Miralax (For Daily Use) -) 17 gm PO BID [facility] Last Admin: 03/11/18 09:48 Dose: 17 gm Simethicone (Mylicon -) 80 mg PO Q4H PRN PRN Reason: GAS Last Admin: 03/11/18 16:40 Dose: 80 mg Sotalol HCl (Betapace -) 80 mg PO BID [facility] Last Admin: 03/11/18 09:47 Dose: 80 mg Timolol Maleate (Timoptic 0.5%) 1 drop OU BID [facility] Last Admin: 03/11/18 09:47 Dose: 1 drop Warfarin Sodium (Coumadin -) 2 mg PO Q2D@1800 [facility] Warfarin Sodium (Coumadin -) 1 mg PO Q2D@1800 [facility] - Objective Vital Signs: Vital Signs Temperature 98.0 F 03/11/18 14:00 Pulse Rate 65 03/11/18 14:00 Respiratory Rate 18 03/11/18 14:00 Blood Pressure 114/67 03/11/18 14:00 O2 Sat by Pulse Oximetry (%) 93 L 03/11/18 09:00 Constitutional: Yes: No Distress, Calm, Thin Neck: Yes: Supple Cardiovascular: Yes: Pulse Irregular, Murmur (3/6 SM) Respiratory: Yes: Regular, Diminished Gastrointestinal: Yes: Normal Bowel Sounds, Soft Edema: No Labs: CBC, BMP 03/09/18 06:00 03/09/18 06:00 INR, PTT INR 1.90 (0.82-1.09) H 03/11/18 06:20 Problem List - Problems (1) CHF exacerbation Code(s): I50.9 - HEART FAILURE, UNSPECIFIED Qualifiers: Heart failure type: diastolic Qualified Code(s): I50.33 - Acute on chronic diastolic (congestive) heart failure (2) Coronary artery disease Code(s): I25.10 - ATHSCL HEART DISEASE OF [place] CORONARY ARTERY W/O ANG PCTRS Qualifiers: Coronary Disease-Associated Artery/Lesion type: [place] artery [place] vs. transplanted heart: [place] heart Associated angina: without angina Qualified Code(s): I25.10 - Atherosclerotic heart disease of [place] coronary artery without angina pectoris (3) History of pacemaker Code(s): Z95.0 - PRESENCE OF CARDIAC PACEMAKER (4) Hyperlipidemia Code(s): E78.5 - HYPERLIPIDEMIA, UNSPECIFIED Qualifiers: Hyperlipidemia type: pure hypercholesterolemia Qualified Code(s): E78.00 - Pure hypercholesterolemia, unspecified (5) Hypertension Code(s): I10 - ESSENTIAL (PRIMARY) HYPERTENSION Qualifiers: Hypertension type: essential hypertension Qualified Code(s): I10 - Essential (primary) hypertension (6) Hypothyroidism Code(s): E03.9 - HYPOTHYROIDISM, UNSPECIFIED Qualifiers: Hypothyroidism type: unspecified Qualified Code(s): E03.9 - Hypothyroidism , unspecified (7) Neurocardiogenic syncope Code(s): R55 - SYNCOPE AND COLLAPSE (8) Pacemaker Code(s): Z95.0 - PRESENCE OF CARDIAC PACEMAKER (9) Paroxysmal atrial fibrillation Code(s): I48.0 - PAROXYSMAL ATRIAL FIBRILLATION (10) MGUS (monoclonal gammopathy of unknown significance) Code(s): D47.2 - MONOCLONAL GAMMOPATHY (11) History of cardioversion Code(s): Z98.890 - OTHER SPECIFIED POSTPROCEDURAL STATES (12) Severe aortic stenosis Code(s): I35.0 - NONRHEUMATIC AORTIC (VALVE) STENOSIS Assessment/Plan Echocardiography 01/06/2018 revealed normal LV size with mild LVH normal LV function, abnormal LV compliance, moderate-severe aortic valve stenosis with MG 32 mmHg, RUBY 0.7 cm^2, mild AR, mildly dilated aortic root, moderate MR, TR, mild [place], RVSP 40 mmHg 1. Acute on chronic class II NYHA classification LV failure related to diastolic LV dysfunction, resolved 2. Moderate-severe aortic valve stenosis 3. Paroxysmal atrial fibrillation currently in sinus rhythm post cardioversion with subtherapeutic INR, [id number] score of 6 4. CAD angina pectoris, stable 5. 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 HTN/HCVD 7. Hyperlipidemia 8. Hypothyroidism 9. CKD with acute renal insufficiency, resolved 10. Abdominal pain, resolved 11. 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 Continue Losartan 25 qd with close monitoring of renal function 2. Continue Betapace 80 bid with close monitoring of QTc 3. Continue Lipitor 10 qhs 4. Continue Heparin gtt-> Coumadin per INR, maintain INR 2-3 5. Continue PO Lasix 20 qd 6. As outlined above in reference to management of her , to be deferred pending ERCP in 4 weeks 7. PT->SNF
[2018-03-11] MEDS ORDERED: WARFARIN NA 2 MG TABLET (UD) PO SCH (18:00)
[2018-03-11] MEDS: ATORVASTATIN CA 10 MG TABLET (FP) PO SCH (22:18)
[2018-03-11] MEDS: LATANOPROST 0.005% OPHTH SOLN 2.5ML BOTTLE OU SCH (22:19)
[2018-03-12] MEDS: LEVOTHYROXINE NA 75 MCG TABLET (FP) PO SCH (06:11)
[2018-03-12 08:10] LABS: HEMATOCRIT 32.2 % (32.4-45.2); LYMPH % 15.2 % (8-40); MCH 32.1 pg (25.7-33.7); MCHC 34.2 g/dl (32.0-36.0); MEAN CELL VOLUME 93.7 fl (80-96); MEAN PLT VOLUME 8.9 fl (7.5-11.1); MONO % 14.4 % (3.8-10.2); NEUT % 64.4 % (42.8-82.8); PLATELET COUNT 180 K/MM3 (134-434); RBC 3.43 M/mm3 (3.60-5.2); RDW 14.2 % (11.6-15.6)
[2018-03-12 08:23] LABS: INR 1.66 (0.82-1.09); PROTHROMBIN TIME (PATIENT) 18.8 SEC (9.7-13.0)
[2018-03-12 08:26] LABS: ACTIVATED PTT 65.6 SECONDS (26.9-34.4)
[2018-03-12 08:36] LABS: ALBUMIN 2.8 g/dl (3.4-5.0); ALK PHOS 77 U/L (45-117); ANION GAP 7 (8-16); BILIRUBIN,TOTAL 0.5 mg/dL (0.2-1.0); BLOOD UREA NITROGEN 17 mg/dL (7-18); CALCIUM 9.2 mg/dL (8.5-10.1); CHLORIDE 99 mmol/L (98-107); CO2 29 mmol/L (21-32); CREATININE 0.6 mg/dL (0.55-1.02); GLUCOSE,RANDOM 95 mg/dL (74-106); POTASSIUM 4.2 mmol/L (3.5-5.1); SGOT/AST 19 U/L (15-37); SGPT/ALT 15 U/L (12-78); SODIUM 135 mmol/L (136-145); TOT PROT 7.1 g/dl (6.4-8.2)
--- NOTE | 2018-03-12 09:16 | EKG ---
Test Reason : Blood Pressure : / mmHG Vent. Rate : 069 BPM Atrial Rate : 535 BPM P-R Int : 000 ms QRS Dur : 090 ms QT Int : 418 ms P-R-T Axes : 000 -24 032 degrees QTc Int : 447 ms Atrial-paced rhythm with prolonged AV conduction ABNORMAL ECG WHEN COMPARED WITH ECG OF 03-MAR-2018 09:53, NON-SPECIFIC CHANGE IN ST SEGMENT IN ANTERIOR LEADS T WAVE INVERSION NO LONGER EVIDENT IN INFERIOR LEADS T WAVE INVERSION NO LONGER EVIDENT IN ANTERIOR LEADS Confirmed by LISA RENTERIA MD ([id number]) on 03/12/2018 9:15:55 AM Referred By: Dereck OLIVER Confirmed By:LISA RENTERIA MD
[2018-03-12] MEDS: LOSARTAN POTASSIUM 25 MG TABLET PO SCH (09:37)
[2018-03-12] MEDS: SOTALOL HCL 80 MG TABLET (FP) PO SCH ×2 (09:37→21:05)
[2018-03-12] MEDS: LACTOBACILLUS ACIDOPHILUS 1 TABLET PO SCH (09:37)
[2018-03-12] MEDS: POLYETHYLENE GLYCOL 3350 119 GM BTL PO SCH ×2 (09:38→21:06)
[2018-03-12] MEDS: MULTIVITAMINS (DAILY MVI) TABLET (FP) PO SCH (09:38)
[2018-03-12] MEDS: FUROSEMIDE 20 MG TABLET (FP) PO SCH (09:38)
[2018-03-12] MEDS: PANTOPRAZOLE 40 MG TABLET (FP) PO SCH (09:38)
[2018-03-12] MEDS: BRIMONIDINE TARTRATE 0.2% OPHTHALMIC 5 ML BOTTLE OU SCH ×2 (09:41→21:04)
[2018-03-12] MEDS: TIMOLOL 0.5% OPHTHALMIC SOL 5 ML BOTTLE OU SCH ×2 (09:42→21:22)
[2018-03-12] MEDS: DORZOLAMIDE 2% HCL OPHTHALMIC SOLUTION 10 ML BOTTLE OD SCH ×2 (09:43→21:14)
[2018-03-12] MEDS: CHOLECALCIFEROL (VITAMIN D3) 400 UNIT TABLET (FP) PO SCH (09:47)
[2018-03-12] MEDS ORDERED: FUROSEMIDE 40 MG/4 ML INJECTABLE VIAL IVPUSH ONE (10:00)
--- NOTE | 2018-03-12 11:16 | PN ---
Progress Note, Physician Chief Complaint: in bed feels very weak had some dizziness and chest pressure this am, and GERD, CXR CE and EKG no changes except CHF/CXR; will switch to IV lasix; BPs 130-160 no hypoTA INR 1.66 iv heparin and po coumadin has gas, on miralax; but takes it once a day only (ordered by GI as bid or tid). - Current Medication List Current Medications: Active Medications Acetaminophen (Tylenol -) 650 mg PO Q4H PRN PRN Reason: FEVER Atorvastatin Calcium (Lipitor -) 10 mg PO HS [facility] Last Admin: 03/11/18 22:18 Dose: 10 mg Brimonidine Tartrate (Alphagan 0.2% -) 1 drop OU BID [facility] Last Admin: 03/12/18 09:41 Dose: 1 drop Cholecalciferol (Vitamin D3 -) 400 unit PO DAILY [facility] Last Admin: 03/12/18 09:47 Dose: 400 unit Diltiazem HCl (Cardizem Injection -) 10 mg IVPUSH Q4H PRN PRN Reason: TACHYCARDIA Last Admin: 03/01/18 10:59 Dose: 10 mg Dorzolamide HCl (Trusopt 2%) 1 drop OD BID [facility] Last Admin: 03/12/18 09:43 Dose: 1 drop Furosemide (Lasix Injection -) 40 mg IVPUSH DAILY [facility] Heparin Sodium (Porcine) (Heparin -) 1,000 unit IVPUSH PRN PRN PRN Reason: Heparin Heparin Sodium (Porcine) (Heparin -) 5,000 unit IVPUSH PRN PRN PRN Reason: Heparin Heparin Sodium/Dextrose (Heparin Infusion -) 25,000 units in 500 mls @ 20 mls/ hr IVPB TITR [facility]; 1,000 UNITS/HR PRN Reason: Protocol Last Admin: 03/11/18 12:03 Dose: 600 units/hr, 12 mls/hr Lactobacillus Acidophilus (Bacid -) 1 tab PO DAILY [facility] Last Admin: 03/12/18 09:37 Dose: 1 tab Latanoprost (Xalatan 0.005% Eye Drops -) 1 drop OU HS [facility] Last Admin: 03/11/18 22:19 Dose: 1 drop Levothyroxine Sodium (Synthroid -) 75 mcg PO DAILY@0700 [facility] Last Admin: 03/12/18 06:11 Dose: 75 mcg Losartan Potassium (Cozaar -) 25 mg PO DAILY [facility] Last Admin: 03/12/18 09:37 Dose: 25 mg Multivitamins/Minerals/Vitamin C (Tab-A-Vit -) 1 tab PO DAILY [facility] Last Admin: 03/12/18 09:38 Dose: 1 tab Pantoprazole Sodium (Protonix -) 40 mg PO DAILY [facility] Last Admin: 03/12/18 09:38 Dose: 40 mg Polyethylene Glycol (Miralax (For Daily Use) -) 17 gm PO BID [facility] Last Admin: 03/12/18 09:38 Dose: Not Given Simethicone (Mylicon -) 80 mg PO Q4H PRN PRN Reason: GAS Last Admin: 03/11/18 22:18 Dose: 80 mg Sotalol HCl (Betapace -) 80 mg PO BID [facility] Last Admin: 03/12/18 09:37 Dose: 80 mg Timolol Maleate (Timoptic 0.5%) 1 drop OU BID [facility] Last Admin: 03/12/18 09:42 Dose: 1 drop - Objective Vital Signs: Vital Signs Temperature 97.3 F L 03/12/18 09:27 Pulse Rate 69 03/12/18 09:27 Respiratory Rate 20 03/12/18 09:27 Blood Pressure 150/91 03/12/18 09:27 O2 Sat by Pulse Oximetry (%) 97 03/11/18 21:00 Constitutional: Yes: No Distress, Calm Eyes: Yes: Conjunctiva Clear HENT: Yes: Atraumatic Neck: Yes: Supple Cardiovascular: Yes: Regular Rate and Rhythm Respiratory: Yes: Diminished Gastrointestinal: Yes: Soft. No: Distention Genitourinary: No: CVA Tenderness - Left, CVA Tenderness - Right Musculoskeletal: No: Joint Stiffness, Joint Swelling Extremities: No: Cold, Cool, Cyanosis Edema: No Integumentary: No: Rash, Venous Stasis Changes Neurological: Yes: WNL, Alert, Oriented ...Motor Strength: WNL Psychiatric: Yes: WNL, Alert, Oriented. No: Agitated, Suicidal Ideation Labs: CBC, BMP 03/12/18 06:40 03/12/18 06:40 INR, PTT INR 1.66 (0.82-1.09) H 03/12/18 06:40 - ....Imaging Other: Report Reviewed Assessment/Plan 87 year old female with pmh CBD stone s/p ERCP s/p stent placement, atrial fibrillation (on Coumadin), Ao Stenosis, HTN, HLD, CAD s/p stents and pacemaker , hypothyroidism, diverticulitis, recurrent UTIs p/w generalized weakness s/p UTI on bactrim. Admitted with general weakness and shortness of breath, urinary retention. Coumadin toxicity s/p Fluid overload and RAFib - s/p CARLI CV per cardiology on IV heparin and po coumadin for aim INR 2-3 f/u labs IV lasix for CHF, cardio f/u; BP control miralax prn for constipation, maalox and protonix for GERD PT rehab and CM eval for SNF falls PFX d/w pt do not get OOB alone, call for help if needs OOB, risk of falls ; bed alarm on prognosis guarded d/w pt and staff
[2018-03-12] MEDS: HEPARIN INFUSION - 25,000 UNITS/500 ML INFUS.BAG IVPB SCH (11:30)
[2018-03-12] MEDS: SIMETHICONE 80 MG TAB.CHEW (FP) PO PRN ×3 (13:44→21:05)
--- NOTE | 2018-03-12 13:45 | PN ---
Progress Note, Physician History of Present Illness: Reported chest pain, light-headedness and dyspnea, CXR shows congestion, ECG w/ o changes, resumed IV diuresis with relief of sxs. - Current Medication List Current Medications: Active Medications Acetaminophen (Tylenol -) 650 mg PO Q4H PRN PRN Reason: FEVER Atorvastatin Calcium (Lipitor -) 10 mg PO HS [facility] Last Admin: 03/11/18 22:18 Dose: 10 mg Brimonidine Tartrate (Alphagan 0.2% -) 1 drop OU BID [facility] Last Admin: 03/12/18 09:41 Dose: 1 drop Cholecalciferol (Vitamin D3 -) 400 unit PO DAILY [facility] Last Admin: 03/12/18 09:47 Dose: 400 unit Diltiazem HCl (Cardizem Injection -) 10 mg IVPUSH Q4H PRN PRN Reason: TACHYCARDIA Last Admin: 03/01/18 10:59 Dose: 10 mg Dorzolamide HCl (Trusopt 2%) 1 drop OD BID [facility] Last Admin: 03/12/18 09:43 Dose: 1 drop Furosemide (Lasix Injection -) 40 mg IVPUSH DAILY [facility] Heparin Sodium (Porcine) (Heparin -) 1,000 unit IVPUSH PRN PRN PRN Reason: Heparin Heparin Sodium (Porcine) (Heparin -) 5,000 unit IVPUSH PRN PRN PRN Reason: Heparin Heparin Sodium/Dextrose (Heparin Infusion -) 25,000 units in 500 mls @ 20 mls/ hr IVPB TITR [facility]; 1,000 UNITS/HR PRN Reason: Protocol Last Admin: 03/12/18 11:30 Dose: 600 units/hr, 12 mls/hr Lactobacillus Acidophilus (Bacid -) 1 tab PO DAILY [facility] Last Admin: 03/12/18 09:37 Dose: 1 tab Latanoprost (Xalatan 0.005% Eye Drops -) 1 drop OU HS [facility] Last Admin: 03/11/18 22:19 Dose: 1 drop Levothyroxine Sodium (Synthroid -) 75 mcg PO DAILY@0700 [facility] Last Admin: 03/12/18 06:11 Dose: 75 mcg Losartan Potassium (Cozaar -) 25 mg PO DAILY [facility] Last Admin: 03/12/18 09:37 Dose: 25 mg Multivitamins/Minerals/Vitamin C (Tab-A-Vit -) 1 tab PO DAILY [facility] Last Admin: 03/12/18 09:38 Dose: 1 tab Pantoprazole Sodium (Protonix -) 40 mg PO DAILY [facility] Last Admin: 03/12/18 09:38 Dose: 40 mg Polyethylene Glycol (Miralax (For Daily Use) -) 17 gm PO BID [facility] Last Admin: 03/12/18 09:38 Dose: Not Given Simethicone (Mylicon -) 80 mg PO Q4H PRN PRN Reason: GAS Last Admin: 03/11/18 22:18 Dose: 80 mg Simethicone (Mylicon -) 80 mg PO QID PRN PRN Reason: CONSTIPATION Last Admin: 03/12/18 13:44 Dose: 80 mg Sotalol HCl (Betapace -) 80 mg PO BID [facility] Last Admin: 03/12/18 09:37 Dose: 80 mg Timolol Maleate (Timoptic 0.5%) 1 drop OU BID [facility] Last Admin: 03/12/18 09:42 Dose: 1 drop Warfarin Sodium (Coumadin -) 3 mg PO DAILY@1800 [facility] - Objective Vital Signs: Vital Signs Temperature 97.9 F 03/12/18 13:22 Pulse Rate 82 03/12/18 13:22 Respiratory Rate 18 03/12/18 13:22 Blood Pressure 128/88 03/12/18 13:22 O2 Sat by Pulse Oximetry (%) 97 03/12/18 09:00 Constitutional: Yes: No Distress, Calm, Thin Neck: Yes: Supple Cardiovascular: Yes: Regular Rate and Rhythm, Murmur (3/6 SM) Respiratory: Yes: Regular, Diminished, On Nasal O2 Gastrointestinal: Yes: Normal Bowel Sounds, Soft Edema: No Labs: CBC, BMP 03/12/18 06:40 03/12/18 06:40 INR, PTT INR 1.66 (0.82-1.09) H 03/12/18 06:40 - ....Imaging Chest X-ray: Report Reviewed (Congestion) EKG: Report Reviewed (A-paced) Problem List - Problems (1) CHF exacerbation Code(s): I50.9 - HEART FAILURE, UNSPECIFIED Qualifiers: Heart failure type: diastolic Qualified Code(s): I50.33 - Acute on chronic diastolic (congestive) heart failure (2) Coronary artery disease Code(s): I25.10 - ATHSCL HEART DISEASE OF [place] CORONARY ARTERY W/O ANG PCTRS Qualifiers: Coronary Disease-Associated Artery/Lesion type: [place] artery [place] vs. transplanted heart: [place] heart Associated angina: without angina Qualified Code(s): I25.10 - Atherosclerotic heart disease of [place] coronary artery without angina pectoris (3) History of pacemaker Code(s): Z95.0 - PRESENCE OF CARDIAC PACEMAKER (4) Hyperlipidemia Code(s): E78.5 - HYPERLIPIDEMIA, UNSPECIFIED Qualifiers: Hyperlipidemia type: pure hypercholesterolemia Qualified Code(s): E78.00 - Pure hypercholesterolemia, unspecified (5) Hypertension Code(s): I10 - ESSENTIAL (PRIMARY) HYPERTENSION Qualifiers: Hypertension type: essential hypertension Qualified Code(s): I10 - Essential (primary) hypertension (6) Hypothyroidism Code(s): E03.9 - HYPOTHYROIDISM, UNSPECIFIED Qualifiers: Hypothyroidism type: unspecified Qualified Code(s): E03.9 - Hypothyroidism , unspecified (7) Neurocardiogenic syncope Code(s): R55 - SYNCOPE AND COLLAPSE (8) Pacemaker Code(s): Z95.0 - PRESENCE OF CARDIAC PACEMAKER (9) Paroxysmal atrial fibrillation Code(s): I48.0 - PAROXYSMAL ATRIAL FIBRILLATION (10) MGUS (monoclonal gammopathy of unknown significance) Code(s): D47.2 - MONOCLONAL GAMMOPATHY (11) History of cardioversion Code(s): Z98.890 - OTHER SPECIFIED POSTPROCEDURAL STATES (12) Severe aortic stenosis Code(s): I35.0 - NONRHEUMATIC AORTIC (VALVE) STENOSIS Assessment/Plan Echocardiography 01/06/2018 revealed normal LV size with mild LVH normal LV function, abnormal LV compliance, moderate-severe aortic valve stenosis with MG 32 mmHg, RUBY 0.7 cm^2, mild AR, mildly dilated aortic root, moderate MR, TR, mild SC, RVSP 40 mmHg 1. Acute on chronic class II NYHA classification LV failure related to diastolic LV dysfunction, recurrent 2. Moderate-severe aortic valve stenosis 3. Paroxysmal atrial fibrillation currently in sinus rhythm post cardioversion with subtherapeutic INR, [id number] score of 6 4. CAD angina pectoris, stable 5. 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 HTN/HCVD 7. Hyperlipidemia 8. Hypothyroidism 9. CKD with acute renal insufficiency, resolved 10. Abdominal pain, resolved 11. 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 Continue Losartan 25 qd with close monitoring of renal function 2. Continue Betapace 80 bid with close monitoring of QTc 3. Continue Lipitor 10 qhs 4. Continue Heparin gtt-> Coumadin per INR, maintain INR 2-3 5. Resume IV diuresis with monitor diuretic response, renal fxn and electrolytes , repeat BNP 6. As outlined above in reference to management of her , to be deferred pending ERCP and stent removal in 4 weeks 7. PT->SNF
[2018-03-12] MEDS ORDERED: WARFARIN NA 3 MG TABLET PO SCH (18:00)
[2018-03-12] MEDS ORDERED: WARFARIN NA 1 MG TABLET (FP) PO SCH (18:00)
[2018-03-12] MEDS: ATORVASTATIN CA 10 MG TABLET (FP) PO SCH (21:05)
[2018-03-12] MEDS: LATANOPROST 0.005% OPHTH SOLN 2.5ML BOTTLE OU SCH (21:26)
[2018-03-13] MEDS: SIMETHICONE 80 MG TAB.CHEW (FP) PO PRN ×5 (01:56→20:40)
[2018-03-13] MEDS: LEVOTHYROXINE NA 75 MCG TABLET (FP) PO SCH (06:13)
[2018-03-13] MEDS: ACETAMINOPHEN 325 MG TABLET (FP) PO PRN ×2 (06:43→21:09)
[2018-03-13 07:56] LABS: INR 1.49 (0.82-1.09); PROTHROMBIN TIME (PATIENT) 16.8 SEC (9.7-13.0)
--- NOTE | 2018-03-13 08:12 | PN ---
Progress Note, Physician Chief Complaint: has some lower abdominal cramps and abdominal gas; is on prn miralax and prn gasX - will ask GI in f/u; had BM soft and gas; no dysuria no blood in urien or stools INR 1.5 no CP/SOB but feels generally very weak and deconditioned and needs assistance going to the bathroom. - Current Medication List Current Medications: Active Medications Acetaminophen (Tylenol -) 650 mg PO Q4H PRN PRN Reason: FEVER Atorvastatin Calcium (Lipitor -) 10 mg PO HS [facility] Last Admin: 03/12/18 21:05 Dose: 10 mg Brimonidine Tartrate (Alphagan 0.2% -) 1 drop OU BID [facility] Last Admin: 03/12/18 21:04 Dose: 1 drop Cholecalciferol (Vitamin D3 -) 400 unit PO DAILY [facility] Last Admin: 03/12/18 09:47 Dose: 400 unit Diltiazem HCl (Cardizem Injection -) 10 mg IVPUSH Q4H PRN PRN Reason: TACHYCARDIA Last Admin: 03/01/18 10:59 Dose: 10 mg Dorzolamide HCl (Trusopt 2%) 1 drop OD BID [facility] Last Admin: 03/12/18 21:14 Dose: 1 drop Furosemide (Lasix Injection -) 40 mg IVPUSH DAILY [facility] Heparin Sodium (Porcine) (Heparin -) 1,000 unit IVPUSH PRN PRN PRN Reason: Heparin Heparin Sodium (Porcine) (Heparin -) 5,000 unit IVPUSH PRN PRN PRN Reason: Heparin Heparin Sodium/Dextrose (Heparin Infusion -) 25,000 units in 500 mls @ 20 mls/ hr IVPB TITR [facility]; 1,000 UNITS/HR PRN Reason: Protocol Last Admin: 03/12/18 11:30 Dose: 600 units/hr, 12 mls/hr Lactobacillus Acidophilus (Bacid -) 1 tab PO DAILY [facility] Last Admin: 03/12/18 09:37 Dose: 1 tab Latanoprost (Xalatan 0.005% Eye Drops -) 1 drop OU HS [facility] Last Admin: 03/12/18 21:26 Dose: 1 drop Levothyroxine Sodium (Synthroid -) 75 mcg PO DAILY@0700 [facility] Last Admin: 03/13/18 06:13 Dose: 75 mcg Losartan Potassium (Cozaar -) 25 mg PO DAILY [facility] Last Admin: 03/12/18 09:37 Dose: 25 mg Multivitamins/Minerals/Vitamin C (Tab-A-Vit -) 1 tab PO DAILY [facility] Last Admin: 03/12/18 09:38 Dose: 1 tab Pantoprazole Sodium (Protonix -) 40 mg PO DAILY [facility] Last Admin: 03/12/18 09:38 Dose: 40 mg Polyethylene Glycol (Miralax (For Daily Use) -) 17 gm PO BID [facility] Last Admin: 03/12/18 21:06 Dose: 17 gm Simethicone (Mylicon -) 80 mg PO Q4H PRN PRN Reason: GAS Last Admin: 03/13/18 06:48 Dose: 80 mg Simethicone (Mylicon -) 80 mg PO QID PRN PRN Reason: CONSTIPATION Last Admin: 03/12/18 13:44 Dose: 80 mg Sotalol HCl (Betapace -) 80 mg PO BID [facility] Last Admin: 03/12/18 21:05 Dose: 80 mg Timolol Maleate (Timoptic 0.5%) 1 drop OU BID [facility] Last Admin: 03/12/18 21:22 Dose: 1 drop Warfarin Sodium (Coumadin -) 3 mg PO DAILY@1800 [facility] Last Admin: 03/12/18 17:48 Dose: 3 mg - Objective Vital Signs: Vital Signs Temperature 98.5 F 03/13/18 06:00 Pulse Rate 67 03/13/18 06:00 Respiratory Rate 20 03/13/18 06:00 Blood Pressure 124/77 03/13/18 06:00 O2 Sat by Pulse Oximetry (%) 97 03/12/18 20:56 Constitutional: Yes: No Distress, Calm Eyes: Yes: Conjunctiva Clear HENT: Yes: Atraumatic Neck: Yes: Supple Cardiovascular: Yes: Regular Rate and Rhythm Respiratory: Yes: CTA Bilaterally Gastrointestinal: Yes: Soft. No: Distention, Tenderness Genitourinary: No: CVA Tenderness - Left, CVA Tenderness - Right Musculoskeletal: No: Joint Stiffness, Joint Swelling Extremities: No: Cold, Cool, Cyanosis, Erythema Edema: No Integumentary: No: Rash, Venous Stasis Changes Neurological: Yes: WNL, Alert, Oriented ...Motor Strength: WNL Psychiatric: Yes: WNL, Alert, Oriented. No: Agitated, Suicidal Ideation Labs: CBC, BMP 03/12/18 06:40 03/12/18 06:40 INR, PTT INR 1.49 (0.82-1.09) H 03/13/18 06:03 - ....Imaging Other: Report Reviewed Assessment/Plan 87 year old female with pmh CBD stone s/p ERCP s/p stent placement, atrial fibrillation (on Coumadin), Ao Stenosis, HTN, HLD, CAD s/p stents and pacemaker , hypothyroidism, diverticulitis, recurrent UTIs p/w generalized weakness s/p UTI on bactrim. Admitted with general weakness and shortness of breath, urinary retention. Coumadin toxicity s/p Fluid overload and RAFib - s/p CARLI CV per cardiology on IV heparin and po coumadin for aim INR 2-3 f/u labs IV lasix for CHF, cardio f/u; BP control miralax prn for constipation, maalox and protonix for GERD; GI f/u PT rehab and CM eval for SNF falls PFX d/w pt do not get OOB alone, call for help if needs OOB, risk of falls ; bed alarm on prognosis guarded d/w pt and staff
[2018-03-13] MEDS ORDERED: FUROSEMIDE 40 MG/4 ML INJECTABLE VIAL IVPUSH SCH (10:00)
[2018-03-13] MEDS: MULTIVITAMINS (DAILY MVI) TABLET (FP) PO SCH (10:19)
[2018-03-13] MEDS: PANTOPRAZOLE 40 MG TABLET (FP) PO SCH (10:19)
[2018-03-13] MEDS: LOSARTAN POTASSIUM 25 MG TABLET PO SCH (10:20)
[2018-03-13] MEDS: LACTOBACILLUS ACIDOPHILUS 1 TABLET PO SCH (10:20)
[2018-03-13] MEDS: SOTALOL HCL 80 MG TABLET (FP) PO SCH ×2 (10:20→21:09)
[2018-03-13] MEDS: CHOLECALCIFEROL (VITAMIN D3) 400 UNIT TABLET (FP) PO SCH (10:20)
[2018-03-13] MEDS: TIMOLOL 0.5% OPHTHALMIC SOL 5 ML BOTTLE OU SCH ×2 (10:20→21:43)
[2018-03-13] MEDS: BRIMONIDINE TARTRATE 0.2% OPHTHALMIC 5 ML BOTTLE OU SCH ×2 (10:20→21:09)
[2018-03-13] MEDS: DORZOLAMIDE 2% HCL OPHTHALMIC SOLUTION 10 ML BOTTLE OD SCH ×2 (10:21→21:40)
[2018-03-13] MEDS: POLYETHYLENE GLYCOL 3350 119 GM BTL PO SCH ×2 (10:21→21:11)
[2018-03-13 11:00] LABS: N-TERMINAL BNP 6923.07 pg/ml (5-450)
--- NOTE | 2018-03-13 11:36 | PN ---
Progress Note, Physician History of Present Illness: Atypical chest and abd discomfort with belching improved sitting up c/w GERD, denies dyspnea, remains on diuresis. - Current Medication List Current Medications: Active Medications Acetaminophen (Tylenol -) 650 mg PO Q4H PRN PRN Reason: FEVER Atorvastatin Calcium (Lipitor -) 10 mg PO HS [facility] Last Admin: 03/12/18 21:05 Dose: 10 mg Brimonidine Tartrate (Alphagan 0.2% -) 1 drop OU BID [facility] Last Admin: 03/13/18 10:20 Dose: 1 drop Cholecalciferol (Vitamin D3 -) 400 unit PO DAILY [facility] Last Admin: 03/13/18 10:20 Dose: 400 unit Diltiazem HCl (Cardizem Injection -) 10 mg IVPUSH Q4H PRN PRN Reason: TACHYCARDIA Last Admin: 03/01/18 10:59 Dose: 10 mg Dorzolamide HCl (Trusopt 2%) 1 drop OD BID [facility] Last Admin: 03/13/18 10:21 Dose: 1 drop Furosemide (Lasix Injection -) 40 mg IVPUSH DAILY [facility] Last Admin: 03/13/18 10:19 Dose: 40 mg Heparin Sodium (Porcine) (Heparin -) 1,000 unit IVPUSH PRN PRN PRN Reason: Heparin Heparin Sodium (Porcine) (Heparin -) 5,000 unit IVPUSH PRN PRN PRN Reason: Heparin Heparin Sodium/Dextrose (Heparin Infusion -) 25,000 units in 500 mls @ 20 mls/ hr IVPB TITR [facility]; 1,000 UNITS/HR PRN Reason: Protocol Last Admin: 03/12/18 11:30 Dose: 600 units/hr, 12 mls/hr Lactobacillus Acidophilus (Bacid -) 1 tab PO DAILY [facility] Last Admin: 03/13/18 10:20 Dose: 1 tab Latanoprost (Xalatan 0.005% Eye Drops -) 1 drop OU HS [facility] Last Admin: 03/12/18 21:26 Dose: 1 drop Levothyroxine Sodium (Synthroid -) 75 mcg PO DAILY@0700 [facility] Last Admin: 03/13/18 06:13 Dose: 75 mcg Losartan Potassium (Cozaar -) 25 mg PO DAILY [facility] Last Admin: 03/13/18 10:20 Dose: 25 mg Multivitamins/Minerals/Vitamin C (Tab-A-Vit -) 1 tab PO DAILY [facility] Last Admin: 03/13/18 10:19 Dose: 1 tab Pantoprazole Sodium (Protonix -) 40 mg PO DAILY [facility] Last Admin: 03/13/18 10:19 Dose: 40 mg Polyethylene Glycol (Miralax (For Daily Use) -) 17 gm PO BID [facility] Last Admin: 03/13/18 10:21 Dose: Not Given Simethicone (Mylicon -) 80 mg PO Q4H PRN PRN Reason: GAS Last Admin: 03/13/18 10:26 Dose: 80 mg Simethicone (Mylicon -) 80 mg PO QID PRN PRN Reason: CONSTIPATION Last Admin: 03/12/18 13:44 Dose: 80 mg Sotalol HCl (Betapace -) 80 mg PO BID [facility] Last Admin: 03/13/18 10:20 Dose: 80 mg Timolol Maleate (Timoptic 0.5%) 1 drop OU BID [facility] Last Admin: 03/13/18 10:20 Dose: 1 drop Warfarin Sodium (Coumadin -) 5 mg PO DAILY@1800 [facility] - Objective Vital Signs: Vital Signs Temperature 98.5 F 03/13/18 06:00 Pulse Rate 67 03/13/18 06:00 Respiratory Rate 20 03/13/18 06:00 Blood Pressure 124/77 03/13/18 06:00 O2 Sat by Pulse Oximetry (%) 97 03/12/18 20:56 Constitutional: Yes: No Distress, Calm Neck: Yes: Supple Cardiovascular: Yes: Regular Rate and Rhythm, Murmur (3/6 SM) Respiratory: Yes: Regular, Diminished Gastrointestinal: Yes: Normal Bowel Sounds, Soft Edema: No Labs: CBC, BMP 03/12/18 06:40 03/12/18 06:40 INR, PTT INR 1.49 (0.82-1.09) H 03/13/18 06:03 Problem List - Problems (1) CHF exacerbation Code(s): I50.9 - HEART FAILURE, UNSPECIFIED Qualifiers: Heart failure type: diastolic Qualified Code(s): I50.33 - Acute on chronic diastolic (congestive) heart failure (2) Coronary artery disease Code(s): I25.10 - ATHSCL HEART DISEASE OF [place] CORONARY ARTERY W/O ANG PCTRS Qualifiers: Coronary Disease-Associated Artery/Lesion type: [place] artery [place] vs. transplanted heart: [place] heart Associated angina: without angina Qualified Code(s): I25.10 - Atherosclerotic heart disease of [place] coronary artery without angina pectoris (3) History of pacemaker Code(s): Z95.0 - PRESENCE OF CARDIAC PACEMAKER (4) Hyperlipidemia Code(s): E78.5 - HYPERLIPIDEMIA, UNSPECIFIED Qualifiers: Hyperlipidemia type: pure hypercholesterolemia Qualified Code(s): E78.00 - Pure hypercholesterolemia, unspecified (5) Hypertension Code(s): I10 - ESSENTIAL (PRIMARY) HYPERTENSION Qualifiers: Hypertension type: essential hypertension Qualified Code(s): I10 - Essential (primary) hypertension (6) Hypothyroidism Code(s): E03.9 - HYPOTHYROIDISM, UNSPECIFIED Qualifiers: Hypothyroidism type: unspecified Qualified Code(s): E03.9 - Hypothyroidism , unspecified (7) Neurocardiogenic syncope Code(s): R55 - SYNCOPE AND COLLAPSE (8) Pacemaker Code(s): Z95.0 - PRESENCE OF CARDIAC PACEMAKER (9) Paroxysmal atrial fibrillation Code(s): I48.0 - PAROXYSMAL ATRIAL FIBRILLATION (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 Acute on chronic class II NYHA classification LV failure related to diastolic LV dysfunction, improving 2. Moderate-severe aortic valve stenosis 3. Paroxysmal atrial fibrillation currently in sinus rhythm post cardioversion with subtherapeutic INR, [id number] score of 6 4. CAD angina pectoris, stable 5. 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 HTN/HCVD 7. Hyperlipidemia 8. Hypothyroidism 9. CKD with acute renal insufficiency, resolved 10. GERD 11. 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 Continue Losartan 25 qd with close monitoring of renal function 2. Continue Betapace 80 bid with close monitoring of QTc 3. Continue Lipitor 10 qhs 4. Continue Heparin gtt-> Coumadin per INR, maintain INR 2-3 5. Resume oral diuresis with monitor diuretic response, renal fxn and electrolytes, repeat BNP lower, ruled out for [place] 6. As outlined above in reference to management of her , to be deferred pending ERCP and stent removal in 4 weeks 7. PT->SNF
[2018-03-13] MEDS: HEPARIN INFUSION - 25,000 UNITS/500 ML INFUS.BAG IVPB SCH (17:21)
[2018-03-13] MEDS: WARFARIN NA 5 MG TABLET (UD) PO SCH (17:21)
[2018-03-13] MEDS: ATORVASTATIN CA 10 MG TABLET (FP) PO SCH (21:09)
[2018-03-13] MEDS: LATANOPROST 0.005% OPHTH SOLN 2.5ML BOTTLE OU SCH (21:11)
[2018-03-14] MEDS: LEVOTHYROXINE NA 75 MCG TABLET (FP) PO SCH (06:18)
--- NOTE | 2018-03-14 06:20 | PN ---
Progress Note, Physician Chief Complaint: in bed no new c/o INR 1.5 on 5 mg/d, usual home dose 1 mg and 2 mg alternating - Current Medication List Current Medications: Active Medications Acetaminophen (Tylenol -) 650 mg PO Q4H PRN PRN Reason: FEVER Last Admin: 03/13/18 21:09 Dose: 650 mg Atorvastatin Calcium (Lipitor -) 10 mg PO HS [facility] Last Admin: 03/13/18 21:09 Dose: 10 mg Brimonidine Tartrate (Alphagan 0.2% -) 1 drop OU BID [facility] Last Admin: 03/13/18 21:09 Dose: 1 drop Cholecalciferol (Vitamin D3 -) 400 unit PO DAILY [facility] Last Admin: 03/13/18 10:20 Dose: 400 unit Diltiazem HCl (Cardizem Injection -) 10 mg IVPUSH Q4H PRN PRN Reason: TACHYCARDIA Last Admin: 03/01/18 10:59 Dose: 10 mg Dorzolamide HCl (Trusopt 2%) 1 drop OD BID [facility] Last Admin: 03/13/18 21:40 Dose: 1 drop Furosemide (Lasix -) 40 mg PO DAILY [facility] Heparin Sodium (Porcine) (Heparin -) 1,000 unit IVPUSH PRN PRN PRN Reason: Heparin Heparin Sodium (Porcine) (Heparin -) 5,000 unit IVPUSH PRN PRN PRN Reason: Heparin Heparin Sodium/Dextrose (Heparin Infusion -) 25,000 units in 500 mls @ 20 mls/ hr IVPB TITR [facility]; 1,000 UNITS/HR PRN Reason: Protocol Last Admin: 03/13/18 17:21 Dose: Not Given Lactobacillus Acidophilus (Bacid -) 1 tab PO DAILY [facility] Last Admin: 03/13/18 10:20 Dose: 1 tab Latanoprost (Xalatan 0.005% Eye Drops -) 1 drop OU HS [facility] Last Admin: 03/13/18 21:11 Dose: 1 drop Levothyroxine Sodium (Synthroid -) 75 mcg PO DAILY@0700 [facility] Last Admin: 03/14/18 06:18 Dose: 75 mcg Losartan Potassium (Cozaar -) 25 mg PO DAILY [facility] Last Admin: 03/13/18 10:20 Dose: 25 mg Multivitamins/Minerals/Vitamin C (Tab-A-Vit -) 1 tab PO DAILY [facility] Last Admin: 03/13/18 10:19 Dose: 1 tab Pantoprazole Sodium (Protonix -) 40 mg PO DAILY [facility] Last Admin: 03/13/18 10:19 Dose: 40 mg Polyethylene Glycol (Miralax (For Daily Use) -) 17 gm PO BID [facility] Last Admin: 03/13/18 21:11 Dose: Not Given Simethicone (Mylicon -) 80 mg PO Q4H PRN PRN Reason: GAS Last Admin: 03/13/18 20:40 Dose: 80 mg Simethicone (Mylicon -) 80 mg PO QID PRN PRN Reason: CONSTIPATION Last Admin: 03/12/18 13:44 Dose: 80 mg Sotalol HCl (Betapace -) 80 mg PO BID [facility] Last Admin: 03/13/18 21:09 Dose: 80 mg Timolol Maleate (Timoptic 0.5%) 1 drop OU BID [facility] Last Admin: 03/13/18 21:43 Dose: 1 drop Warfarin Sodium (Coumadin -) 5 mg PO DAILY@1800 [facility] Last Admin: 03/13/18 17:21 Dose: 5 mg - Objective Vital Signs: Vital Signs Temperature 97.7 F 03/13/18 20:28 Pulse Rate 78 03/13/18 20:28 Respiratory Rate 20 03/13/18 20:32 Blood Pressure 148/89 03/13/18 20:28 O2 Sat by Pulse Oximetry (%) 95 03/13/18 20:32 Constitutional: Yes: No Distress, Calm Eyes: Yes: Conjunctiva Clear HENT: Yes: Atraumatic Neck: Yes: Supple Cardiovascular: Yes: Regular Rate and Rhythm Respiratory: Yes: CTA Bilaterally Gastrointestinal: Yes: Soft. No: Distention, Tenderness Genitourinary: No: CVA Tenderness - Left, CVA Tenderness - Right Musculoskeletal: No: Joint Stiffness, Joint Swelling Extremities: No: Cold, Cool, Cyanosis Edema: No Integumentary: No: Rash, Venous Stasis Changes Neurological: Yes: WNL, Alert, Oriented ...Motor Strength: WNL Psychiatric: Yes: WNL, Alert, Oriented. No: Agitated, Suicidal Ideation Labs: CBC, BMP 03/12/18 06:40 03/12/18 06:40 INR, PTT INR 1.49 (0.82-1.09) H 03/13/18 06:03 - ....Imaging Other: Report Reviewed Assessment/Plan 87 year old female with pmh CBD stone s/p ERCP s/p stent placement, atrial fibrillation (on Coumadin), Ao Stenosis, HTN, HLD, CAD s/p stents and pacemaker , hypothyroidism, diverticulitis, recurrent UTIs p/w generalized weakness s/p UTI on bactrim. Admitted with fluid overload, tachycardia, general weakness and shortness of breath, urinary retention. At admission had INR 9 Coumadin toxicity on her usual home dose 1 mg/2 mg qod s/p CARLI CV per cardiology on IV heparin and po coumadin for aim INR 2-3 f/u labs, on 5 mg/day coumadin for few days but INR still <2 IV lasix for CHF, cardio f/u; BP control miralax prn for constipation, maalox and protonix for GERD; GI f/u PT rehab and CM eval for SNF falls PFX d/w pt do not get OOB alone, call for help if needs OOB, risk of falls ; bed alarm on prognosis guarded d/w pt and staff
[2018-03-14 08:01] LABS: BASO % 1.4 % (0-2.0); EOS % 5.7 % (0-4.5); HEMATOCRIT 30.7 % (32.4-45.2); HEMOGLOBIN 10.5 GM/dL (10.7-15.3); LYMPH % 22.5 % (8-40); MCH 31.9 pg (25.7-33.7); MCHC 34.1 g/dl (32.0-36.0); MEAN CELL VOLUME 93.4 fl (80-96); MEAN PLT VOLUME 8.9 fl (7.5-11.1); MONO % 18.8 % (3.8-10.2); NEUT % 51.6 % (42.8-82.8); PLATELET COUNT 182 K/MM3 (134-434); RBC 3.29 M/mm3 (3.60-5.2); RDW 14.1 % (11.6-15.6); WHITE BLOOD COUNT 4.6 K/mm3 (4.0-10.0)
[2018-03-14 08:02] LABS: INR 1.56 (0.82-1.09); PROTHROMBIN TIME (PATIENT) 17.6 SEC (9.7-13.0)
[2018-03-14 08:26] LABS: ALBUMIN 2.5 g/dl (3.4-5.0); ANION GAP 5 (8-16); BLOOD UREA NITROGEN 18 mg/dL (7-18); CALCIUM 8.6 mg/dL (8.5-10.1); CHLORIDE 100 mmol/L (98-107); CO2 32 mmol/L (21-32); CREATININE 0.6 mg/dL (0.55-1.02); GLUCOSE,RANDOM 81 mg/dL (74-106); POTASSIUM 3.9 mmol/L (3.5-5.1); SGOT/AST 18 U/L (15-37); SGPT/ALT 16 U/L (12-78); SODIUM 137 mmol/L (136-145)
[2018-03-14 08:27] LABS: ALK PHOS 75 U/L (45-117); BILIRUBIN,TOTAL 0.5 mg/dL (0.2-1.0); TOT PROT 6.7 g/dl (6.4-8.2)
[2018-03-14] MEDS: HEPARIN INFUSION - 25,000 UNITS/500 ML INFUS.BAG IVPB SCH ×2 (08:39→11:50)
[2018-03-14] MEDS ORDERED: PT OWN MED DRAWER 7, Y5N ONE (10:05)
[2018-03-14] MEDS: LOSARTAN POTASSIUM 25 MG TABLET PO SCH (10:12)
[2018-03-14] MEDS: CHOLECALCIFEROL (VITAMIN D3) 400 UNIT TABLET (FP) PO SCH (10:12)
[2018-03-14] MEDS: BRIMONIDINE TARTRATE 0.2% OPHTHALMIC 5 ML BOTTLE OU SCH ×2 (10:12→21:08)
[2018-03-14] MEDS: PANTOPRAZOLE 40 MG TABLET (FP) PO SCH (10:12)
[2018-03-14] MEDS: FUROSEMIDE 40 MG TABLET (FP) PO SCH (10:12)
[2018-03-14] MEDS: SOTALOL HCL 80 MG TABLET (FP) PO SCH ×2 (10:12→21:08)
[2018-03-14] MEDS: MULTIVITAMINS (DAILY MVI) TABLET (FP) PO SCH (10:12)
[2018-03-14] MEDS: LACTOBACILLUS ACIDOPHILUS 1 TABLET PO SCH (10:12)
[2018-03-14] MEDS: TIMOLOL 0.5% OPHTHALMIC SOL 5 ML BOTTLE OU SCH ×2 (10:13→21:09)
[2018-03-14] MEDS: DORZOLAMIDE 2% HCL OPHTHALMIC SOLUTION 10 ML BOTTLE OD SCH ×2 (10:13→21:11)
[2018-03-14] MEDS: POLYETHYLENE GLYCOL 3350 119 GM BTL PO SCH ×2 (11:50→21:13)
--- NOTE | 2018-03-14 12:56 | PN ---
Progress Note, Physician Chief Complaint: Events noted AF with RVR intermittently History of Present Illness: Patient was seen and examined. Awake and alert. Chart was reviewed Denies chest pain or SOB this am - Current Medication List Current Medications: Active Medications Acetaminophen (Tylenol -) 650 mg PO Q4H PRN PRN Reason: FEVER Last Admin: 03/13/18 21:09 Dose: 650 mg Atorvastatin Calcium (Lipitor -) 10 mg PO HS [facility] Last Admin: 03/13/18 21:09 Dose: 10 mg Brimonidine Tartrate (Alphagan 0.2% -) 1 drop OU BID [facility] Last Admin: 03/14/18 10:12 Dose: 1 drop Cholecalciferol (Vitamin D3 -) 400 unit PO DAILY [facility] Last Admin: 03/14/18 10:12 Dose: 400 unit Diltiazem HCl (Cardizem Injection -) 10 mg IVPUSH Q4H PRN PRN Reason: TACHYCARDIA Last Admin: 03/01/18 10:59 Dose: 10 mg Dorzolamide HCl (Trusopt 2%) 1 drop OD BID [facility] Last Admin: 03/14/18 10:13 Dose: 1 drop Furosemide (Lasix -) 40 mg PO DAILY [facility] Last Admin: 03/14/18 10:12 Dose: 40 mg Heparin Sodium (Porcine) (Heparin -) 1,000 unit IVPUSH PRN PRN PRN Reason: Heparin Heparin Sodium (Porcine) (Heparin -) 5,000 unit IVPUSH PRN PRN PRN Reason: Heparin Heparin Sodium/Dextrose (Heparin Infusion -) 25,000 units in 500 mls @ 20 mls/ hr IVPB TITR [facility]; 1,000 UNITS/HR PRN Reason: Protocol Last Admin: 03/14/18 11:50 Dose: Not Given Lactobacillus Acidophilus (Bacid -) 1 tab PO DAILY [facility] Last Admin: 03/14/18 10:12 Dose: 1 tab Latanoprost (Xalatan 0.005% Eye Drops -) 1 drop OU HS [facility] Last Admin: 03/13/18 21:11 Dose: 1 drop Levothyroxine Sodium (Synthroid -) 75 mcg PO DAILY@0700 [facility] Last Admin: 03/14/18 06:18 Dose: 75 mcg Losartan Potassium (Cozaar -) 25 mg PO DAILY [facility] Last Admin: 03/14/18 10:12 Dose: 25 mg Multivitamins/Minerals/Vitamin C (Tab-A-Vit -) 1 tab PO DAILY [facility] Last Admin: 03/14/18 10:12 Dose: 1 tab Pantoprazole Sodium (Protonix -) 40 mg PO DAILY [facility] Last Admin: 03/14/18 10:12 Dose: 40 mg Polyethylene Glycol (Miralax (For Daily Use) -) 17 gm PO BID [facility] Last Admin: 03/14/18 11:50 Dose: 17 gm Simethicone (Mylicon -) 80 mg PO Q4H PRN PRN Reason: GAS Last Admin: 03/13/18 20:40 Dose: 80 mg Simethicone (Mylicon -) 80 mg PO QID PRN PRN Reason: CONSTIPATION Last Admin: 03/12/18 13:44 Dose: 80 mg Sotalol HCl (Betapace -) 80 mg PO BID [facility] Last Admin: 03/14/18 10:12 Dose: 80 mg Timolol Maleate (Timoptic 0.5%) 1 drop OU BID [facility] Last Admin: 03/14/18 10:13 Dose: 1 drop Warfarin Sodium (Coumadin -) 5 mg PO DAILY@1800 [facility] Last Admin: 03/13/18 17:21 Dose: 5 mg - Objective Vital Signs: Vital Signs Temperature 98.1 F 03/14/18 06:24 Pulse Rate 83 03/14/18 06:24 Respiratory Rate 20 03/14/18 06:24 Blood Pressure 132/80 03/14/18 06:24 O2 Sat by Pulse Oximetry (%) 95 03/13/18 20:32 Constitutional: Yes: Well Nourished Eyes: Yes: PERRL Neck: Yes: Supple Cardiovascular: Yes: Regular Rate and Rhythm, S1, S2 Respiratory: Yes: CTA Bilaterally Gastrointestinal: Yes: Normal Bowel Sounds, Soft. No: Tenderness Edema: No Labs: CBC, BMP 03/14/18 06:00 03/14/18 06:00 INR, PTT INR 1.56 (0.82-1.09) H 03/14/18 06:00 Problem List - Problems (1) MGUS (monoclonal gammopathy of unknown significance) Code(s): D47.2 - MONOCLONAL GAMMOPATHY (2) Achalasia Code(s): K22.0 - ACHALASIA OF CARDIA (3) Atrial fibrillation Code(s): I48.91 - UNSPECIFIED ATRIAL FIBRILLATION Qualifiers: Atrial fibrillation type: persistent Qualified Code(s): I48.1 - Persistent atrial fibrillation (4) Bile duct calculus Code(s): K80.50 - CALCULUS OF BILE DUCT W/O CHOLANGITIS OR CHOLECYST W/O OBST Qualifiers: Cholecystitis presence: without cholecystitis Biliary obstruction: with biliary obstruction Qualified Code(s): K80.51 - Calculus of bile duct without cholangitis or cholecystitis with obstruction (5) Colic, biliary Code(s): K80.50 - CALCULUS OF BILE DUCT W/O CHOLANGITIS OR CHOLECYST W/O OBST (6) Coronary artery disease Code(s): I25.10 - ATHSCL HEART DISEASE OF [place] CORONARY ARTERY W/O ANG PCTRS Qualifiers: Coronary Disease-Associated Artery/Lesion type: [place] artery [place] vs. transplanted heart: [place] heart Associated angina: without angina Qualified Code(s): I25.10 - Atherosclerotic heart disease of [place] coronary artery without angina pectoris (7) GERD (gastroesophageal reflux disease) Code(s): K21.9 - GASTRO-ESOPHAGEAL REFLUX DISEASE WITHOUT ESOPHAGITIS Qualifiers: Esophagitis presence: without esophagitis Qualified Code(s): K21.9 - Gastro -esophageal reflux disease without esophagitis (8) History of endoscopic retrograde cholangiopancreatography Code(s): Z98.890 - OTHER SPECIFIED POSTPROCEDURAL STATES (9) History of pacemaker Code(s): Z95.0 - PRESENCE OF CARDIAC PACEMAKER (10) Hyperlipidemia Code(s): E78.5 - HYPERLIPIDEMIA, UNSPECIFIED Qualifiers: Hyperlipidemia type: pure hypercholesterolemia Qualified Code(s): E78.00 - Pure hypercholesterolemia, unspecified (11) Hypertension Code(s): I10 - ESSENTIAL (PRIMARY) HYPERTENSION Qualifiers: Hypertension type: essential hypertension Qualified Code(s): I10 - Essential (primary) hypertension (12) Hypothyroidism Code(s): E03.9 - HYPOTHYROIDISM, UNSPECIFIED Qualifiers: Hypothyroidism type: unspecified Qualified Code(s): E03.9 - Hypothyroidism , unspecified (13) Lower esophageal ring (Schatzki) Code(s): K22.2 - ESOPHAGEAL OBSTRUCTION (14) Moderate aortic valve stenosis Code(s): I35.0 - NONRHEUMATIC AORTIC (VALVE) STENOSIS (15) Neurocardiogenic syncope Code(s): R55 - SYNCOPE AND COLLAPSE Assessment/Plan 1. Acute on chronic class II NYHA classification LV failure related to diastolic LV dysfunction 2. Moderate-severe aortic valve stenosis 3. Paroxysmal atrial fibrillation with RVR with subtherapeutic INR, s/p cardioversion 4. CAD angina pectoris, stable 5. 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 HTN/HCVD 7. Hyperlipidemia 8. Hypothyroidism 9. Acute on CKD 10. Abdominal pain, left colitis r/o c. diff vs ischemia resolving 11. Retained stones post cholecystectomy with biliary duct dilatation post therapeutic ERCP/sphincterotomy and biliary stent 12. History of schatzki ring dilation 13. MGUS 14. Hyponatremia PLAN: 1. Continue Losartan 50 qd with close monitoring of renal function 2. Continue Sotalol 80 mg BID and monitor QTc. 3. Continue Lipitor 10 qhs 4. Coumadin with caution and close monitoring of CBC and INR, maintain INR 2- 3.Heparin drip as a bridge 5. Further GI evaluation as outpatient then TAVR eval afterwards Further plans are to follow Alejandro Elise MD
[2018-03-14] MEDS: WARFARIN NA 5 MG TABLET (UD) PO SCH (17:58)
[2018-03-14] MEDS: SIMETHICONE 80 MG TAB.CHEW (FP) PO PRN (18:21)
[2018-03-14] MEDS: ATORVASTATIN CA 10 MG TABLET (FP) PO SCH (21:08)
[2018-03-14] MEDS: LATANOPROST 0.005% OPHTH SOLN 2.5ML BOTTLE OU SCH (21:09)
[2018-03-15] MEDS: LEVOTHYROXINE NA 75 MCG TABLET (FP) PO SCH (06:18)
[2018-03-15 08:23] LABS: INR 1.66 (0.82-1.09); PROTHROMBIN TIME (PATIENT) 18.8 SEC (9.7-13.0)
--- NOTE | 2018-03-15 08:39 | PN ---
Progress Note, Physician Chief Complaint: in bed nad vss afebrile; feels better less abdominal pain and gas, no CP/SOB INR 1.6 - Current Medication List Current Medications: Active Medications Acetaminophen (Tylenol -) 650 mg PO Q4H PRN PRN Reason: FEVER Last Admin: 03/13/18 21:09 Dose: 650 mg Atorvastatin Calcium (Lipitor -) 10 mg PO HS [facility] Last Admin: 03/14/18 21:08 Dose: 10 mg Brimonidine Tartrate (Alphagan 0.2% -) 1 drop OU BID [facility] Last Admin: 03/14/18 21:08 Dose: 1 drop Cholecalciferol (Vitamin D3 -) 400 unit PO DAILY [facility] Last Admin: 03/14/18 10:12 Dose: 400 unit Diltiazem HCl (Cardizem Injection -) 10 mg IVPUSH Q4H PRN PRN Reason: TACHYCARDIA Last Admin: 03/01/18 10:59 Dose: 10 mg Dorzolamide HCl (Trusopt 2%) 1 drop OD BID [facility] Last Admin: 03/14/18 21:11 Dose: 1 drop Furosemide (Lasix -) 40 mg PO DAILY [facility] Last Admin: 03/14/18 10:12 Dose: 40 mg Heparin Sodium (Porcine) (Heparin -) 1,000 unit IVPUSH PRN PRN PRN Reason: Heparin Heparin Sodium (Porcine) (Heparin -) 5,000 unit IVPUSH PRN PRN PRN Reason: Heparin Heparin Sodium/Dextrose (Heparin Infusion -) 25,000 units in 500 mls @ 20 mls/ hr IVPB TITR [facility]; 1,000 UNITS/HR PRN Reason: Protocol Last Admin: 03/14/18 11:50 Dose: Not Given Lactobacillus Acidophilus (Bacid -) 1 tab PO DAILY [facility] Last Admin: 03/14/18 10:12 Dose: 1 tab Latanoprost (Xalatan 0.005% Eye Drops -) 1 drop OU HS [facility] Last Admin: 03/14/18 21:09 Dose: 1 drop Levothyroxine Sodium (Synthroid -) 75 mcg PO DAILY@0700 [facility] Last Admin: 03/15/18 06:18 Dose: 75 mcg Losartan Potassium (Cozaar -) 25 mg PO DAILY [facility] Last Admin: 03/14/18 10:12 Dose: 25 mg Multivitamins/Minerals/Vitamin C (Tab-A-Vit -) 1 tab PO DAILY [facility] Last Admin: 03/14/18 10:12 Dose: 1 tab Pantoprazole Sodium (Protonix -) 40 mg PO DAILY [facility] Last Admin: 03/14/18 10:12 Dose: 40 mg Polyethylene Glycol (Miralax (For Daily Use) -) 17 gm PO BID [facility] Last Admin: 03/14/18 21:13 Dose: 17 gm Simethicone (Mylicon -) 80 mg PO Q4H PRN PRN Reason: GAS Last Admin: 03/14/18 18:21 Dose: 80 mg Simethicone (Mylicon -) 80 mg PO QID PRN PRN Reason: CONSTIPATION Last Admin: 03/12/18 13:44 Dose: 80 mg Sotalol HCl (Betapace -) 80 mg PO BID [facility] Last Admin: 03/14/18 21:08 Dose: 80 mg Timolol Maleate (Timoptic 0.5%) 1 drop OU BID [facility] Last Admin: 03/14/18 21:09 Dose: 1 drop Warfarin Sodium (Coumadin -) 5 mg PO DAILY@1800 [facility] Last Admin: 03/14/18 17:58 Dose: 5 mg - Objective Vital Signs: Vital Signs Temperature 98.2 F 03/15/18 05:08 Pulse Rate 84 03/15/18 05:08 Respiratory Rate 20 03/15/18 05:08 Blood Pressure 122/79 03/15/18 05:08 O2 Sat by Pulse Oximetry (%) 98 03/14/18 20:41 Constitutional: Yes: No Distress, Calm Eyes: Yes: Conjunctiva Clear HENT: Yes: Atraumatic Neck: Yes: Supple Cardiovascular: Yes: Regular Rate and Rhythm Respiratory: Yes: CTA Bilaterally Gastrointestinal: Yes: Soft. No: Distention, Tenderness Genitourinary: No: CVA Tenderness - Left, CVA Tenderness - Right Musculoskeletal: No: Joint Stiffness, Joint Swelling Extremities: No: Cold, Cool, Cyanosis Edema: No Integumentary: No: Rash, Venous Stasis Changes Neurological: Yes: WNL, Alert, Oriented ...Motor Strength: WNL Psychiatric: Yes: WNL, Alert, Oriented. No: Agitated, Suicidal Ideation Labs: CBC, BMP 03/14/18 06:00 03/14/18 06:00 INR, PTT INR 1.66 (0.82-1.09) H 03/15/18 06:00 - ....Imaging Other: Report Reviewed Assessment/Plan 87 year old female with pmh CBD stone s/p ERCP s/p stent placement, atrial fibrillation (on Coumadin), Ao Stenosis, HTN, HLD, CAD s/p stents and pacemaker , hypothyroidism, diverticulitis, recurrent UTIs p/w generalized weakness s/p UTI on bactrim. Admitted with fluid overload, tachycardia, general weakness and shortness of breath, urinary retention. At admission had INR 9 Coumadin toxicity on her usual home dose 1 mg/2 mg qod s/p CARLI CV per cardiology on IV heparin and po coumadin for aim INR 2-3 f/u labs, on 5 mg/day coumadin for few days but INR still <2 IV lasix for CHF, cardio f/u; BP control miralax prn for constipation, maalox and protonix for GERD; GI f/u PT rehab and CM eval for SNF falls PFX d/w pt do not get OOB alone, call for help if needs OOB, risk of falls ; bed alarm on prognosis guarded d/w pt and staff
[2018-03-15] MEDS ORDERED: PT OWN MED DRAWER 7, Y5N ONE ×2 (08:55→21:23)
[2018-03-15] MEDS: FUROSEMIDE 40 MG TABLET (FP) PO SCH (09:03)
[2018-03-15] MEDS: LOSARTAN POTASSIUM 25 MG TABLET PO SCH (09:03)
[2018-03-15] MEDS: MULTIVITAMINS (DAILY MVI) TABLET (FP) PO SCH (09:03)
[2018-03-15] MEDS: PANTOPRAZOLE 40 MG TABLET (FP) PO SCH (09:03)
[2018-03-15] MEDS: SOTALOL HCL 80 MG TABLET (FP) PO SCH ×2 (09:03→22:17)
[2018-03-15] MEDS: LACTOBACILLUS ACIDOPHILUS 1 TABLET PO SCH (09:03)
[2018-03-15] MEDS: BRIMONIDINE TARTRATE 0.2% OPHTHALMIC 5 ML BOTTLE OU SCH ×2 (09:04→22:18)
[2018-03-15] MEDS: TIMOLOL 0.5% OPHTHALMIC SOL 5 ML BOTTLE OU SCH ×2 (09:04→22:18)
[2018-03-15] MEDS: DORZOLAMIDE 2% HCL OPHTHALMIC SOLUTION 10 ML BOTTLE OD SCH ×2 (09:04→22:18)
[2018-03-15] MEDS: POLYETHYLENE GLYCOL 3350 119 GM BTL PO SCH ×2 (09:05→22:22)
[2018-03-15] MEDS: HEPARIN INFUSION - 25,000 UNITS/500 ML INFUS.BAG IVPB SCH (10:36)
[2018-03-15] MEDS: CHOLECALCIFEROL (VITAMIN D3) 400 UNIT TABLET (FP) PO SCH (10:36)
--- NOTE | 2018-03-15 12:33 | PN ---
Progress Note, Physician History of Present Illness: Ambulating without dyspnea, awaiting therapeutic INR. - Current Medication List Current Medications: Active Medications Acetaminophen (Tylenol -) 650 mg PO Q4H PRN PRN Reason: FEVER Last Admin: 03/13/18 21:09 Dose: 650 mg Atorvastatin Calcium (Lipitor -) 10 mg PO HS [facility] Last Admin: 03/14/18 21:08 Dose: 10 mg Brimonidine Tartrate (Alphagan 0.2% -) 1 drop OU BID [facility] Last Admin: 03/15/18 09:04 Dose: 1 drop Cholecalciferol (Vitamin D3 -) 400 unit PO DAILY [facility] Last Admin: 03/15/18 10:36 Dose: 400 unit Diltiazem HCl (Cardizem Injection -) 10 mg IVPUSH Q4H PRN PRN Reason: TACHYCARDIA Last Admin: 03/01/18 10:59 Dose: 10 mg Dorzolamide HCl (Trusopt 2%) 1 drop OD BID [facility] Last Admin: 03/15/18 09:04 Dose: 1 drop Furosemide (Lasix -) 40 mg PO DAILY [facility] Last Admin: 03/15/18 09:03 Dose: 40 mg Heparin Sodium (Porcine) (Heparin -) 1,000 unit IVPUSH PRN PRN PRN Reason: Heparin Heparin Sodium (Porcine) (Heparin -) 5,000 unit IVPUSH PRN PRN PRN Reason: Heparin Heparin Sodium/Dextrose (Heparin Infusion -) 25,000 units in 500 mls @ 20 mls/ hr IVPB TITR [facility]; 1,000 UNITS/HR PRN Reason: Protocol Last Admin: 03/15/18 10:36 Dose: 600 units/hr, 12 mls/hr Lactobacillus Acidophilus (Bacid -) 1 tab PO DAILY [facility] Last Admin: 03/15/18 09:03 Dose: 1 tab Latanoprost (Xalatan 0.005% Eye Drops -) 1 drop OU HS [facility] Last Admin: 03/14/18 21:09 Dose: 1 drop Levothyroxine Sodium (Synthroid -) 75 mcg PO DAILY@0700 [facility] Last Admin: 03/15/18 06:18 Dose: 75 mcg Losartan Potassium (Cozaar -) 25 mg PO DAILY [facility] Last Admin: 03/15/18 09:03 Dose: 25 mg Multivitamins/Minerals/Vitamin C (Tab-A-Vit -) 1 tab PO DAILY [facility] Last Admin: 03/15/18 09:03 Dose: 1 tab Pantoprazole Sodium (Protonix -) 40 mg PO DAILY [facility] Last Admin: 03/15/18 09:03 Dose: 40 mg Polyethylene Glycol (Miralax (For Daily Use) -) 17 gm PO BID [facility] Last Admin: 03/15/18 09:05 Dose: 17 gm Simethicone (Mylicon -) 80 mg PO Q4H PRN PRN Reason: GAS Last Admin: 03/14/18 18:21 Dose: 80 mg Simethicone (Mylicon -) 80 mg PO QID PRN PRN Reason: CONSTIPATION Last Admin: 03/12/18 13:44 Dose: 80 mg Sotalol HCl (Betapace -) 80 mg PO BID [facility] Last Admin: 03/15/18 09:03 Dose: 80 mg Timolol Maleate (Timoptic 0.5%) 1 drop OU BID [facility] Last Admin: 03/15/18 09:04 Dose: 1 drop Warfarin Sodium (Coumadin -) 5 mg PO DAILY@1800 [facility] Last Admin: 03/14/18 17:58 Dose: 5 mg - Objective Vital Signs: Vital Signs Temperature 98.1 F 03/15/18 10:00 Pulse Rate 65 03/15/18 10:00 Respiratory Rate 20 03/15/18 10:00 Blood Pressure 129/70 03/15/18 10:00 O2 Sat by Pulse Oximetry (%) 98 03/15/18 09:00 Constitutional: Yes: No Distress, Calm, Thin Neck: Yes: Supple Cardiovascular: Yes: Pulse Irregular, Murmur (3/6 SM) Respiratory: Yes: Regular, CTA Bilaterally Gastrointestinal: Yes: Normal Bowel Sounds, Soft Edema: No Labs: CBC, BMP 03/14/18 06:00 03/14/18 06:00 INR, PTT INR 1.66 (0.82-1.09) H 03/15/18 06:00 Problem List - Problems (1) CHF exacerbation Code(s): I50.9 - HEART FAILURE, UNSPECIFIED Qualifiers: Heart failure type: diastolic Qualified Code(s): I50.33 - Acute on chronic diastolic (congestive) heart failure (2) Coronary artery disease Code(s): I25.10 - ATHSCL HEART DISEASE OF [place] CORONARY ARTERY W/O ANG PCTRS Qualifiers: Coronary Disease-Associated Artery/Lesion type: [place] artery [place] vs. transplanted heart: [place] heart Associated angina: without angina Qualified Code(s): I25.10 - Atherosclerotic heart disease of [place] coronary artery without angina pectoris (3) History of pacemaker Code(s): Z95.0 - PRESENCE OF CARDIAC PACEMAKER (4) Hyperlipidemia Code(s): E78.5 - HYPERLIPIDEMIA, UNSPECIFIED Qualifiers: Hyperlipidemia type: pure hypercholesterolemia Qualified Code(s): E78.00 - Pure hypercholesterolemia, unspecified (5) Hypertension Code(s): I10 - ESSENTIAL (PRIMARY) HYPERTENSION Qualifiers: Hypertension type: essential hypertension Qualified Code(s): I10 - Essential (primary) hypertension (6) Hypothyroidism Code(s): E03.9 - HYPOTHYROIDISM, UNSPECIFIED Qualifiers: Hypothyroidism type: unspecified Qualified Code(s): E03.9 - Hypothyroidism , unspecified (7) Neurocardiogenic syncope Code(s): R55 - SYNCOPE AND COLLAPSE (8) Pacemaker Code(s): Z95.0 - PRESENCE OF CARDIAC PACEMAKER (9) Paroxysmal atrial fibrillation Code(s): I48.0 - PAROXYSMAL ATRIAL FIBRILLATION (10) MGUS (monoclonal gammopathy of unknown significance) Code(s): D47.2 - MONOCLONAL GAMMOPATHY (11) History of cardioversion Code(s): Z98.890 - OTHER SPECIFIED POSTPROCEDURAL STATES (12) Severe aortic stenosis Code(s): I35.0 - NONRHEUMATIC AORTIC (VALVE) STENOSIS Assessment/Plan 1. Acute on chronic class II NYHA classification LV failure related to diastolic LV dysfunction 2. Moderate-severe aortic valve stenosis 3. Paroxysmal atrial fibrillation with RVR with subtherapeutic INR, s/p cardioversion 4. CAD angina pectoris, stable 5. 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 HTN/HCVD 7. Hyperlipidemia 8. Hypothyroidism 9. Acute on CKD 10. Abdominal pain, left colitis r/o c. diff vs ischemia resolving 11. Retained stones post cholecystectomy with biliary duct dilatation post therapeutic ERCP/sphincterotomy and biliary stent 12. History of schatzki ring dilation 13. MGUS 14. Hyponatremia PLAN: 1. Continue Losartan 25 qd and Lasix 40 qd with close monitoring of renal function 2. Continue Sotalol 80 mg BID and monitor QTc. 3. Continue Lipitor 10 qhs 4. Heparin gtt->Coumadin with caution and close monitoring of CBC and INR, maintain INR 2-3 5. Further GI evaluation as outpatient then TAVR eval afterwards
[2018-03-15] MEDS: WARFARIN NA 5 MG TABLET (UD) PO SCH (17:32)
[2018-03-15] MEDS ORDERED: WARFARIN NA 2.5 MG TABLET (FP) PO ONE (18:00)
[2018-03-15] MEDS: SIMETHICONE 80 MG TAB.CHEW (FP) PO PRN ×2 (18:43→22:18)
[2018-03-15] MEDS: ATORVASTATIN CA 10 MG TABLET (FP) PO SCH (22:17)
[2018-03-15] MEDS: LATANOPROST 0.005% OPHTH SOLN 2.5ML BOTTLE OU SCH (22:19)
[2018-03-16] MEDS ORDERED: PT OWN MED DRAWER 7, Y5N ONE (05:47)
[2018-03-16] MEDS: LEVOTHYROXINE NA 75 MCG TABLET (FP) PO SCH (06:12)
[2018-03-16 07:51] LABS: INR 1.65 (0.82-1.09); PROTHROMBIN TIME (PATIENT) 18.7 SEC (9.7-13.0)
--- NOTE | 2018-03-16 08:13 | PN ---
Progress Note, Physician Chief Complaint: feeling better awaiting transfer to [facility] - Current Medication List Current Medications: Active Medications Acetaminophen (Tylenol -) 650 mg PO Q4H PRN PRN Reason: FEVER Last Admin: 03/13/18 21:09 Dose: 650 mg Atorvastatin Calcium (Lipitor -) 10 mg PO HS [facility] Last Admin: 03/15/18 22:17 Dose: 10 mg Brimonidine Tartrate (Alphagan 0.2% -) 1 drop OU BID [facility] Last Admin: 03/15/18 22:18 Dose: 1 drop Cholecalciferol (Vitamin D3 -) 400 unit PO DAILY [facility] Last Admin: 03/15/18 10:36 Dose: 400 unit Diltiazem HCl (Cardizem Injection -) 10 mg IVPUSH Q4H PRN PRN Reason: TACHYCARDIA Last Admin: 03/01/18 10:59 Dose: 10 mg Dorzolamide HCl (Trusopt 2%) 1 drop OD BID [facility] Last Admin: 03/15/18 22:18 Dose: 1 drop Furosemide (Lasix -) 40 mg PO DAILY [facility] Last Admin: 03/15/18 09:03 Dose: 40 mg Heparin Sodium (Porcine) (Heparin -) 1,000 unit IVPUSH PRN PRN PRN Reason: Heparin Heparin Sodium (Porcine) (Heparin -) 5,000 unit IVPUSH PRN PRN PRN Reason: Heparin Heparin Sodium/Dextrose (Heparin Infusion -) 25,000 units in 500 mls @ 20 mls/ hr IVPB TITR [facility]; 1,000 UNITS/HR PRN Reason: Protocol Last Admin: 03/15/18 10:36 Dose: 600 units/hr, 12 mls/hr Lactobacillus Acidophilus (Bacid -) 1 tab PO DAILY [facility] Last Admin: 03/15/18 09:03 Dose: 1 tab Latanoprost (Xalatan 0.005% Eye Drops -) 1 drop OU HS [facility] Last Admin: 03/15/18 22:19 Dose: 1 drop Levothyroxine Sodium (Synthroid -) 75 mcg PO DAILY@0700 [facility] Last Admin: 03/16/18 06:12 Dose: 75 mcg Losartan Potassium (Cozaar -) 25 mg PO DAILY [facility] Last Admin: 03/15/18 09:03 Dose: 25 mg Multivitamins/Minerals/Vitamin C (Tab-A-Vit -) 1 tab PO DAILY [facility] Last Admin: 03/15/18 09:03 Dose: 1 tab Pantoprazole Sodium (Protonix -) 40 mg PO DAILY [facility] Last Admin: 03/15/18 09:03 Dose: 40 mg Polyethylene Glycol (Miralax (For Daily Use) -) 17 gm PO BID [facility] Last Admin: 03/15/18 22:22 Dose: Not Given Simethicone (Mylicon -) 80 mg PO Q4H PRN PRN Reason: GAS Last Admin: 03/15/18 18:43 Dose: 80 mg Simethicone (Mylicon -) 80 mg PO QID PRN PRN Reason: CONSTIPATION Last Admin: 03/15/18 22:18 Dose: 80 mg Sotalol HCl (Betapace -) 80 mg PO BID [facility] Last Admin: 03/15/18 22:17 Dose: 80 mg Timolol Maleate (Timoptic 0.5%) 1 drop OU BID [facility] Last Admin: 03/15/18 22:18 Dose: 1 drop Warfarin Sodium (Coumadin -) 5 mg PO DAILY@1800 [facility] Last Admin: 03/15/18 17:32 Dose: 5 mg - Objective Vital Signs: Vital Signs Temperature 97.5 F L 03/16/18 06:00 Pulse Rate 71 03/16/18 06:00 Respiratory Rate 20 03/16/18 06:00 Blood Pressure 133/77 03/16/18 06:00 O2 Sat by Pulse Oximetry (%) 98 03/15/18 21:00 Constitutional: Yes: No Distress, Calm Eyes: Yes: Conjunctiva Clear HENT: Yes: Atraumatic Neck: Yes: Supple Cardiovascular: Yes: Regular Rate and Rhythm Respiratory: Yes: CTA Bilaterally Gastrointestinal: Yes: Soft. No: Distention, Tenderness Genitourinary: No: CVA Tenderness - Left, CVA Tenderness - Right Musculoskeletal: No: Joint Stiffness, Joint Swelling Extremities: No: Cold, Cool, Cyanosis Edema: No Integumentary: No: Rash, Venous Stasis Changes Neurological: Yes: WNL, Alert, Oriented ...Motor Strength: WNL Psychiatric: Yes: WNL, Alert, Oriented. No: Agitated, Suicidal Ideation Labs: CBC, BMP 03/14/18 06:00 03/14/18 06:00 INR, PTT INR 1.65 (0.82-1.09) H 03/16/18 06:00 - ....Imaging Other: Report Reviewed Assessment/Plan 87 year old female with pmh CBD stone s/p ERCP s/p stent placement, atrial fibrillation (on Coumadin), Ao Stenosis, HTN, HLD, CAD s/p stents and pacemaker , hypothyroidism, diverticulitis, recurrent UTIs p/w generalized weakness s/p UTI on bactrim. Admitted with fluid overload, tachycardia, general weakness and shortness of breath, urinary retention.INR 9 Coumadin toxicity on her usual home dose 1 mg/2 mg qod at admission on IV heparin and po coumadin for aim INR 2-3 f/u labs, po lasix for CHF, cardio f/u; BP control miralax prn for constipation, maalox and protonix for GERD; GI f/u PT rehab and CM eval for SNF falls PFX d/w pt do not get OOB alone, call for help if needs OOB, risk of falls ; bed alarm on prognosis guarded d/w pt and staff
[2018-03-16] MEDS: SOTALOL HCL 80 MG TABLET (FP) PO SCH ×2 (09:54→21:29)
[2018-03-16] MEDS: FUROSEMIDE 40 MG TABLET (FP) PO SCH (09:54)
[2018-03-16] MEDS: LOSARTAN POTASSIUM 25 MG TABLET PO SCH (09:54)
[2018-03-16] MEDS: MULTIVITAMINS (DAILY MVI) TABLET (FP) PO SCH (09:54)
[2018-03-16] MEDS: TIMOLOL 0.5% OPHTHALMIC SOL 5 ML BOTTLE OU SCH ×2 (09:55→21:42)
[2018-03-16] MEDS: LACTOBACILLUS ACIDOPHILUS 1 TABLET PO SCH (09:55)
[2018-03-16] MEDS: PANTOPRAZOLE 40 MG TABLET (FP) PO SCH (09:55)
[2018-03-16] MEDS: BRIMONIDINE TARTRATE 0.2% OPHTHALMIC 5 ML BOTTLE OU SCH ×2 (09:56→21:35)
[2018-03-16] MEDS: CHOLECALCIFEROL (VITAMIN D3) 400 UNIT TABLET (FP) PO SCH (09:56)
[2018-03-16] MEDS: DORZOLAMIDE 2% HCL OPHTHALMIC SOLUTION 10 ML BOTTLE OD SCH ×2 (09:56→21:25)
--- NOTE | 2018-03-16 10:46 | PN ---
Progress Note, Physician History of Present Illness: Ambulating without dyspnea, awaiting therapeutic INR. - Current Medication List Current Medications: Active Medications Acetaminophen (Tylenol -) 650 mg PO Q4H PRN PRN Reason: FEVER Last Admin: 03/13/18 21:09 Dose: 650 mg Atorvastatin Calcium (Lipitor -) 10 mg PO HS [facility] Last Admin: 03/15/18 22:17 Dose: 10 mg Brimonidine Tartrate (Alphagan 0.2% -) 1 drop OU BID [facility] Last Admin: 03/16/18 09:56 Dose: 1 drop Cholecalciferol (Vitamin D3 -) 400 unit PO DAILY [facility] Last Admin: 03/16/18 09:56 Dose: 400 unit Diltiazem HCl (Cardizem Injection -) 10 mg IVPUSH Q4H PRN PRN Reason: TACHYCARDIA Last Admin: 03/01/18 10:59 Dose: 10 mg Dorzolamide HCl (Trusopt 2%) 1 drop OD BID [facility] Last Admin: 03/16/18 09:56 Dose: 1 drop Furosemide (Lasix -) 40 mg PO DAILY [facility] Last Admin: 03/16/18 09:54 Dose: 40 mg Heparin Sodium (Porcine) (Heparin -) 1,000 unit IVPUSH PRN PRN PRN Reason: Heparin Heparin Sodium (Porcine) (Heparin -) 5,000 unit IVPUSH PRN PRN PRN Reason: Heparin Heparin Sodium/Dextrose (Heparin Infusion -) 25,000 units in 500 mls @ 20 mls/ hr IVPB TITR [facility]; 1,000 UNITS/HR PRN Reason: Protocol Last Admin: 03/15/18 10:36 Dose: 600 units/hr, 12 mls/hr Lactobacillus Acidophilus (Bacid -) 1 tab PO DAILY [facility] Last Admin: 03/16/18 09:55 Dose: 1 tab Latanoprost (Xalatan 0.005% Eye Drops -) 1 drop OU HS [facility] Last Admin: 03/15/18 22:19 Dose: 1 drop Levothyroxine Sodium (Synthroid -) 75 mcg PO DAILY@0700 [facility] Last Admin: 03/16/18 06:12 Dose: 75 mcg Losartan Potassium (Cozaar -) 25 mg PO DAILY [facility] Last Admin: 03/16/18 09:54 Dose: 25 mg Multivitamins/Minerals/Vitamin C (Tab-A-Vit -) 1 tab PO DAILY [facility] Last Admin: 03/16/18 09:54 Dose: 1 tab Pantoprazole Sodium (Protonix -) 40 mg PO DAILY [facility] Last Admin: 03/16/18 09:55 Dose: 40 mg Polyethylene Glycol (Miralax (For Daily Use) -) 17 gm PO BID [facility] Last Admin: 03/15/18 22:22 Dose: Not Given Simethicone (Mylicon -) 80 mg PO Q4H PRN PRN Reason: GAS Last Admin: 03/15/18 18:43 Dose: 80 mg Simethicone (Mylicon -) 80 mg PO QID PRN PRN Reason: CONSTIPATION Last Admin: 03/15/18 22:18 Dose: 80 mg Sotalol HCl (Betapace -) 80 mg PO BID [facility] Last Admin: 03/16/18 09:54 Dose: 80 mg Timolol Maleate (Timoptic 0.5%) 1 drop OU BID [facility] Last Admin: 03/16/18 09:55 Dose: 1 drop Warfarin Sodium (Coumadin -) 7.5 mg PO DAILY@1800 [facility] - Objective Vital Signs: Vital Signs Temperature 98.2 F 03/16/18 09:50 Pulse Rate 81 03/16/18 09:50 Respiratory Rate 18 03/16/18 09:50 Blood Pressure 126/77 03/16/18 09:50 O2 Sat by Pulse Oximetry (%) 98 03/15/18 21:00 Constitutional: Yes: No Distress, Calm Neck: Yes: Supple Cardiovascular: Yes: Regular Rate and Rhythm, Murmur (3/6 SM) Respiratory: Yes: Regular, Diminished Gastrointestinal: Yes: Normal Bowel Sounds, Soft Edema: No Labs: CBC, BMP 03/14/18 06:00 03/14/18 06:00 INR, PTT INR 1.65 (0.82-1.09) H 03/16/18 06:00 Problem List - Problems (1) CHF exacerbation Code(s): I50.9 - HEART FAILURE, UNSPECIFIED Qualifiers: Heart failure type: diastolic Qualified Code(s): I50.33 - Acute on chronic diastolic (congestive) heart failure (2) Coronary artery disease Code(s): I25.10 - ATHSCL HEART DISEASE OF [place] CORONARY ARTERY W/O ANG PCTRS Qualifiers: Coronary Disease-Associated Artery/Lesion type: [place] artery [place] vs. transplanted heart: [place] heart Associated angina: without angina Qualified Code(s): I25.10 - Atherosclerotic heart disease of [place] coronary artery without angina pectoris (3) History of pacemaker Code(s): Z95.0 - PRESENCE OF CARDIAC PACEMAKER (4) Hyperlipidemia Code(s): E78.5 - HYPERLIPIDEMIA, UNSPECIFIED Qualifiers: Hyperlipidemia type: pure hypercholesterolemia Qualified Code(s): E78.00 - Pure hypercholesterolemia, unspecified (5) Hypertension Code(s): I10 - ESSENTIAL (PRIMARY) HYPERTENSION Qualifiers: Hypertension type: essential hypertension Qualified Code(s): I10 - Essential (primary) hypertension (6) Hypothyroidism Code(s): E03.9 - HYPOTHYROIDISM, UNSPECIFIED Qualifiers: Hypothyroidism type: unspecified Qualified Code(s): E03.9 - Hypothyroidism , unspecified (7) Neurocardiogenic syncope Code(s): R55 - SYNCOPE AND COLLAPSE (8) Pacemaker Code(s): Z95.0 - PRESENCE OF CARDIAC PACEMAKER (9) Paroxysmal atrial fibrillation Code(s): I48.0 - PAROXYSMAL ATRIAL FIBRILLATION (10) MGUS (monoclonal gammopathy of unknown significance) Code(s): D47.2 - MONOCLONAL GAMMOPATHY (11) History of cardioversion Code(s): Z98.890 - OTHER SPECIFIED POSTPROCEDURAL STATES (12) Severe aortic stenosis Code(s): I35.0 - NONRHEUMATIC AORTIC (VALVE) STENOSIS Assessment/Plan 1. Acute on chronic class II NYHA classification LV failure related to diastolic LV dysfunction 2. Moderate-severe aortic valve stenosis 3. Paroxysmal atrial fibrillation with RVR with subtherapeutic INR, s/p cardioversion 4. CAD angina pectoris, stable 5. 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 HTN/HCVD 7. Hyperlipidemia 8. Hypothyroidism 9. Acute on CKD 10. Abdominal pain, left colitis r/o c. diff vs ischemia resolving 11. Retained stones post cholecystectomy with biliary duct dilatation post therapeutic ERCP/sphincterotomy and biliary stent 12. History of schatzki ring dilation 13. MGUS 14. Hyponatremia PLAN: 1. Continue Losartan 25 qd and decrease Lasix 20 qd with close monitoring of renal function 2. Continue Sotalol 80 mg BID and monitor QTc. 3. Continue Lipitor 10 qhs 4. Heparin gtt->Coumadin with caution and close monitoring of CBC and INR, maintain INR 2-3 5. Further GI evaluation as outpatient then TAVR eval afterwards
[2018-03-16] MEDS ORDERED: FUROSEMIDE 20 MG TABLET (FP) PO SCH (11:08)
[2018-03-16] MEDS: HEPARIN INFUSION - 25,000 UNITS/500 ML INFUS.BAG IVPB SCH (11:51)
[2018-03-16] MEDS: POLYETHYLENE GLYCOL 3350 119 GM BTL PO SCH ×2 (11:51→21:30)
[2018-03-16] MEDS ORDERED: WARFARIN NA 7.5 MG TABLET (FP) PO SCH (18:00)
[2018-03-16] MEDS ORDERED: WARFARIN NA 2.5 MG TABLET (FP) PO ONE (18:00)
[2018-03-16] MEDS: SIMETHICONE 80 MG TAB.CHEW (FP) PO PRN (18:20)
[2018-03-16] MEDS: ATORVASTATIN CA 10 MG TABLET (FP) PO SCH (21:29)
[2018-03-16] MEDS: LATANOPROST 0.005% OPHTH SOLN 2.5ML BOTTLE OU SCH (21:32)
[2018-03-17] MEDS: HEPARIN INFUSION - 25,000 UNITS/500 ML INFUS.BAG IVPB SCH (00:21)
[2018-03-17] MEDS: LEVOTHYROXINE NA 75 MCG TABLET (FP) PO SCH (06:02)
[2018-03-17 07:57] LABS: INR 2.09 (0.82-1.09); PROTHROMBIN TIME (PATIENT) 23.6 SEC (9.7-13.0)
--- NOTE | 2018-03-17 08:52 | PN ---
Progress Note, Physician Chief Complaint: has some frequency urination but no fever no leukocytosis no hematuria or pain or burning; will check UA UCX, OK to DC to SNF (INR therapeutic at 2) abd start ceftin po and f/u UCx in NH/SNF d/w pt and staff and wrote DC instructions f/u as advised d/w pt plan and order of events in detail, also written down for her and discussed in detail with her daughter previously - Current Medication List Current Medications: Active Medications Acetaminophen (Tylenol -) 650 mg PO Q4H PRN PRN Reason: FEVER Last Admin: 03/13/18 21:09 Dose: 650 mg Atorvastatin Calcium (Lipitor -) 10 mg PO HS [facility] Last Admin: 03/16/18 21:29 Dose: 10 mg Brimonidine Tartrate (Alphagan 0.2% -) 1 drop OU BID [facility] Last Admin: 03/16/18 21:35 Dose: 1 drop Cholecalciferol (Vitamin D3 -) 400 unit PO DAILY [facility] Last Admin: 03/16/18 09:56 Dose: 400 unit Diltiazem HCl (Cardizem Injection -) 10 mg IVPUSH Q4H PRN PRN Reason: TACHYCARDIA Last Admin: 03/01/18 10:59 Dose: 10 mg Dorzolamide HCl (Trusopt 2%) 1 drop OD BID [facility] Last Admin: 03/16/18 21:25 Dose: 1 drop Furosemide (Lasix -) 20 mg PO DAILY [facility] Heparin Sodium (Porcine) (Heparin -) 1,000 unit IVPUSH PRN PRN PRN Reason: Heparin Heparin Sodium (Porcine) (Heparin -) 5,000 unit IVPUSH PRN PRN PRN Reason: Heparin Heparin Sodium/Dextrose (Heparin Infusion -) 25,000 units in 500 mls @ 20 mls/ hr IVPB TITR [facility]; 1,000 UNITS/HR PRN Reason: Protocol Last Admin: 03/17/18 00:21 Dose: 600 units/hr, 12 mls/hr Lactobacillus Acidophilus (Bacid -) 1 tab PO DAILY [facility] Last Admin: 03/16/18 09:55 Dose: 1 tab Latanoprost (Xalatan 0.005% Eye Drops -) 1 drop OU HS [facility] Last Admin: 03/16/18 21:32 Dose: 1 drop Levothyroxine Sodium (Synthroid -) 75 mcg PO DAILY@0700 [facility] Last Admin: 03/17/18 06:02 Dose: 75 mcg Losartan Potassium (Cozaar -) 25 mg PO DAILY [facility] Last Admin: 03/16/18 09:54 Dose: 25 mg Multivitamins/Minerals/Vitamin C (Tab-A-Vit -) 1 tab PO DAILY [facility] Last Admin: 03/16/18 09:54 Dose: 1 tab Pantoprazole Sodium (Protonix -) 40 mg PO DAILY [facility] Last Admin: 03/16/18 09:55 Dose: 40 mg Polyethylene Glycol (Miralax (For Daily Use) -) 17 gm PO BID [facility] Last Admin: 03/16/18 21:30 Dose: 17 gm Simethicone (Mylicon -) 80 mg PO Q4H PRN PRN Reason: GAS Last Admin: 03/16/18 18:20 Dose: 80 mg Simethicone (Mylicon -) 80 mg PO QID PRN PRN Reason: CONSTIPATION Last Admin: 03/15/18 22:18 Dose: 80 mg Sotalol HCl (Betapace -) 80 mg PO BID [facility] Last Admin: 03/16/18 21:29 Dose: 80 mg Timolol Maleate (Timoptic 0.5%) 1 drop OU BID [facility] Last Admin: 03/16/18 21:42 Dose: 1 drop Warfarin Sodium (Coumadin -) 7.5 mg PO DAILY@1800 [facility] Last Admin: 03/16/18 18:43 Dose: 7.5 mg - Objective Vital Signs: Vital Signs Temperature 97.9 F 03/17/18 05:30 Pulse Rate 80 03/17/18 05:30 Respiratory Rate 20 03/17/18 05:30 Blood Pressure 141/87 03/17/18 05:30 O2 Sat by Pulse Oximetry (%) 95 03/16/18 20:24 Constitutional: Yes: No Distress, Calm Eyes: Yes: Conjunctiva Clear HENT: Yes: Atraumatic Neck: Yes: Supple Cardiovascular: Yes: Regular Rate and Rhythm Respiratory: Yes: CTA Bilaterally Gastrointestinal: Yes: Soft. No: Distention, Tenderness Genitourinary: No: CVA Tenderness - Left, CVA Tenderness - Right Musculoskeletal: No: Joint Stiffness, Joint Swelling Extremities: No: Cold, Cool, Cyanosis Edema: No Integumentary: No: Rash, Venous Stasis Changes Neurological: Yes: WNL, Alert, Oriented ...Motor Strength: WNL Psychiatric: Yes: WNL, Alert, Oriented. No: Agitated, Suicidal Ideation Labs: CBC, BMP 03/14/18 06:00 03/14/18 06:00 INR, PTT INR 2.09 (0.82-1.09) H 03/17/18 06:34 - ....Imaging Other: Report Reviewed Assessment/Plan 87 year old female with pmh CBD stone s/p ERCP s/p stent placement, atrial fibrillation (on Coumadin), Ao Stenosis, HTN, HLD, CAD s/p stents and pacemaker , hypothyroidism, diverticulitis, recurrent UTIs p/w generalized weakness s/p UTI on bactrim. Admitted with fluid overload, tachycardia, general weakness and shortness of breath, urinary retention; INR 9 Coumadin toxicity on her usual home dose 1 mg/2 mg qod at admission on po coumadin for aim INR 2-3 f/u labs, po lasix for CHF, cardio f/u; BP control r/o UTI check UA UCx now, start po ceftin, f/u UCx in 2-3 days results; not septic looking, OK to DC to SNF with close f/u d/w pt miralax prn for constipation, maalox and protonix for GERD; GI f/u PT rehab and CM for transfer to SNF today falls PFX d/w pt do not get OOB alone, call for help if needs OOB, risk of falls ; bed alarm on prognosis guarded f/u as advised d/w pt and staff see DC summary done 03/10
--- NOTE | 2018-03-17 10:02 | PN ---
Progress Note, Physician History of Present Illness: Ambulating without dyspnea, therapeutic INR achieved. - Current Medication List Current Medications: Active Medications Acetaminophen (Tylenol -) 650 mg PO Q4H PRN PRN Reason: FEVER Last Admin: 03/13/18 21:09 Dose: 650 mg Atorvastatin Calcium (Lipitor -) 10 mg PO HS [facility] Last Admin: 03/16/18 21:29 Dose: 10 mg Brimonidine Tartrate (Alphagan 0.2% -) 1 drop OU BID [facility] Last Admin: 03/16/18 21:35 Dose: 1 drop Cholecalciferol (Vitamin D3 -) 400 unit PO DAILY [facility] Last Admin: 03/16/18 09:56 Dose: 400 unit Diltiazem HCl (Cardizem Injection -) 10 mg IVPUSH Q4H PRN PRN Reason: TACHYCARDIA Last Admin: 03/01/18 10:59 Dose: 10 mg Dorzolamide HCl (Trusopt 2%) 1 drop OD BID [facility] Last Admin: 03/16/18 21:25 Dose: 1 drop Furosemide (Lasix -) 20 mg PO DAILY [facility] Heparin Sodium (Porcine) (Heparin -) 1,000 unit IVPUSH PRN PRN PRN Reason: Heparin Heparin Sodium (Porcine) (Heparin -) 5,000 unit IVPUSH PRN PRN PRN Reason: Heparin Heparin Sodium/Dextrose (Heparin Infusion -) 25,000 units in 500 mls @ 20 mls/ hr IVPB TITR [facility]; 1,000 UNITS/HR PRN Reason: Protocol Last Admin: 03/17/18 00:21 Dose: 600 units/hr, 12 mls/hr Lactobacillus Acidophilus (Bacid -) 1 tab PO DAILY [facility] Last Admin: 03/16/18 09:55 Dose: 1 tab Latanoprost (Xalatan 0.005% Eye Drops -) 1 drop OU HS [facility] Last Admin: 03/16/18 21:32 Dose: 1 drop Levothyroxine Sodium (Synthroid -) 75 mcg PO DAILY@0700 [facility] Last Admin: 03/17/18 06:02 Dose: 75 mcg Losartan Potassium (Cozaar -) 25 mg PO DAILY [facility] Last Admin: 03/16/18 09:54 Dose: 25 mg Multivitamins/Minerals/Vitamin C (Tab-A-Vit -) 1 tab PO DAILY [facility] Last Admin: 03/16/18 09:54 Dose: 1 tab Pantoprazole Sodium (Protonix -) 40 mg PO DAILY [facility] Last Admin: 03/16/18 09:55 Dose: 40 mg Polyethylene Glycol (Miralax (For Daily Use) -) 17 gm PO BID [facility] Last Admin: 03/16/18 21:30 Dose: 17 gm Simethicone (Mylicon -) 80 mg PO Q4H PRN PRN Reason: GAS Last Admin: 03/16/18 18:20 Dose: 80 mg Simethicone (Mylicon -) 80 mg PO QID PRN PRN Reason: CONSTIPATION Last Admin: 03/15/18 22:18 Dose: 80 mg Sotalol HCl (Betapace -) 80 mg PO BID [facility] Last Admin: 03/16/18 21:29 Dose: 80 mg Timolol Maleate (Timoptic 0.5%) 1 drop OU BID [facility] Last Admin: 03/16/18 21:42 Dose: 1 drop Warfarin Sodium (Coumadin -) 7.5 mg PO DAILY@1800 [facility] Last Admin: 03/16/18 18:43 Dose: 7.5 mg - Objective Vital Signs: Vital Signs Temperature 97.9 F 03/17/18 05:30 Pulse Rate 80 03/17/18 05:30 Respiratory Rate 20 03/17/18 05:30 Blood Pressure 141/87 03/17/18 05:30 O2 Sat by Pulse Oximetry (%) 95 03/16/18 20:24 Constitutional: Yes: No Distress, Calm Neck: Yes: Supple Cardiovascular: Yes: Pulse Irregular, Murmur (3/6 SM) Respiratory: Yes: Regular, CTA Bilaterally Gastrointestinal: Yes: Normal Bowel Sounds, Soft Edema: No Labs: CBC, BMP 03/14/18 06:00 03/14/18 06:00 INR, PTT INR 2.09 (0.82-1.09) H 03/17/18 06:34 Problem List - Problems (1) CHF exacerbation Code(s): I50.9 - HEART FAILURE, UNSPECIFIED Qualifiers: Heart failure type: diastolic Qualified Code(s): I50.33 - Acute on chronic diastolic (congestive) heart failure (2) Coronary artery disease Code(s): I25.10 - ATHSCL HEART DISEASE OF [place] CORONARY ARTERY W/O ANG PCTRS Qualifiers: Coronary Disease-Associated Artery/Lesion type: [place] artery [place] vs. transplanted heart: [place] heart Associated angina: without angina Qualified Code(s): I25.10 - Atherosclerotic heart disease of [place] coronary artery without angina pectoris (3) History of pacemaker Code(s): Z95.0 - PRESENCE OF CARDIAC PACEMAKER (4) Hyperlipidemia Code(s): E78.5 - HYPERLIPIDEMIA, UNSPECIFIED Qualifiers: Hyperlipidemia type: pure hypercholesterolemia Qualified Code(s): E78.00 - Pure hypercholesterolemia, unspecified (5) Hypertension Code(s): I10 - ESSENTIAL (PRIMARY) HYPERTENSION Qualifiers: Hypertension type: essential hypertension Qualified Code(s): I10 - Essential (primary) hypertension (6) Hypothyroidism Code(s): E03.9 - HYPOTHYROIDISM, UNSPECIFIED Qualifiers: Hypothyroidism type: unspecified Qualified Code(s): E03.9 - Hypothyroidism , unspecified (7) Neurocardiogenic syncope Code(s): R55 - SYNCOPE AND COLLAPSE (8) Pacemaker Code(s): Z95.0 - PRESENCE OF CARDIAC PACEMAKER (9) Paroxysmal atrial fibrillation Code(s): I48.0 - PAROXYSMAL ATRIAL FIBRILLATION (10) MGUS (monoclonal gammopathy of unknown significance) Code(s): D47.2 - MONOCLONAL GAMMOPATHY (11) History of cardioversion Code(s): Z98.890 - OTHER SPECIFIED POSTPROCEDURAL STATES (12) Severe aortic stenosis Code(s): I35.0 - NONRHEUMATIC AORTIC (VALVE) STENOSIS Assessment/Plan 1. Acute on chronic class II NYHA classification LV failure related to diastolic LV dysfunction 2. Moderate-severe aortic valve stenosis 3. Paroxysmal atrial fibrillation with RVR with therapeutic INR, s/p cardioversion 4. CAD angina pectoris, stable 5. 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 HTN/HCVD 7. Hyperlipidemia 8. Hypothyroidism 9. Acute on CKD resolved 10. Abdominal pain, left colitis r/o c. diff vs ischemia resolved 11. Retained stones post cholecystectomy with biliary duct dilatation post therapeutic ERCP/sphincterotomy and biliary stent 12. History of schatzki ring dilation 13. MGUS 14. Hyponatremia PLAN: 1. Continue Losartan 25 qd and Lasix 20 qd with close monitoring of renal function 2. Continue Sotalol 80 mg BID and monitor QTc. 3. Continue Lipitor 10 qhs 4. D/c Heparin gtt and continue Coumadin with caution and close monitoring of CBC and INR, maintain INR 2-3 5. Further GI evaluation as outpatient then TAVR eval afterwards 6. D/c planning with f/u in office with Dr. Willoughby
[2018-03-17] MEDS: MULTIVITAMINS (DAILY MVI) TABLET (FP) PO SCH (10:26)
[2018-03-17] MEDS: SOTALOL HCL 80 MG TABLET (FP) PO SCH (10:26)
[2018-03-17] MEDS: LACTOBACILLUS ACIDOPHILUS 1 TABLET PO SCH (10:26)
[2018-03-17] MEDS: LOSARTAN POTASSIUM 25 MG TABLET PO SCH (10:26)
[2018-03-17] MEDS: PANTOPRAZOLE 40 MG TABLET (FP) PO SCH (10:26)
[2018-03-17] MEDS: BRIMONIDINE TARTRATE 0.2% OPHTHALMIC 5 ML BOTTLE OU SCH (10:27)
[2018-03-17] MEDS: TIMOLOL 0.5% OPHTHALMIC SOL 5 ML BOTTLE OU SCH (10:27)
[2018-03-17] MEDS: DORZOLAMIDE 2% HCL OPHTHALMIC SOLUTION 10 ML BOTTLE OD SCH (10:28)
[2018-03-17] MEDS: CHOLECALCIFEROL (VITAMIN D3) 400 UNIT TABLET (FP) PO SCH (10:28)
[2018-03-17] MEDS: POLYETHYLENE GLYCOL 3350 119 GM BTL PO SCH (10:28)
[2018-03-17] MEDS ORDERED: CEFUROXIME AXETIL 500 MG TABLET PO SCH (11:00)
[2018-03-17 11:54] LABS: URINE APPEARANCE SLCLOUDY; URINE BILIRUBIN NEGATIVE (<2.0 mg/dL); URINE COLOR LTYELLOW; URINE GLUCOSE (UA) NEGATIVE (NEGATIVE); URINE KETONE NEGATIVE (NEGATIVE); URINE NITRITE NEGATIVE (NEGATIVE); URINE PROTEIN NEGATIVE (NEGATIVE); URINE UROBILINOGEN NEGATIVE mg/dL (0.2-1.0)
[2018-03-17 11:57] LABS: URINE LEUK ESTERASE 3+ (NEGATIVE)
[2018-03-17 11:59] LABS: EPI CELLS RARE /HPF (FEW); URINE BACTERIA MANY /hpf (NONE SEEN)
--- NOTE | 2018-03-17 12:21 | PN ---
Progress Note (short form) - Note Progress Note: Patient seen and examined Clinically improved Therapeutic INR No chest pains , SOB, no significant GI complaints Last Vital Signs Temp Pulse Resp BP Pulse Ox 97.9 F 80 20 141/87 95 03/17/18 05:30 03/17/18 05:30 03/17/18 05:30 03/17/18 05:30 03/16/18 20:24 CBC, BMP 03/14/18 06:00 03/14/18 06:00 Current Medications Generic Name Dose Route Start Last Admin Trade Name Freq PRN Reason Stop Dose Admin Acetaminophen 650 mg 02/27/18 20:03 03/13/18 21:09 Tylenol - PO 650 mg Q4H PRN Administration FEVER Atorvastatin Calcium 10 mg 02/27/18 22:00 03/16/18 21:29 Lipitor - PO 10 mg HS [facility] Administration Brimonidine Tartrate 1 drop 02/27/18 22:00 03/17/18 10:27 Alphagan 0.2% - OU 1 drop BID [facility] Administration Cefuroxime Axetil 500 mg 03/17/18 11:00 03/17/18 11:30 Ceftin - PO 500 mg BID [facility] Administration Cholecalciferol 400 unit 02/28/18 10:00 03/17/18 10:28 Vitamin D3 - PO 400 unit DAILY [facility] Administration Diltiazem HCl 10 mg 03/01/18 09:40 03/01/18 10:59 Cardizem Injection - IVPUSH 10 mg Q4H PRN Administration TACHYCARDIA Dorzolamide HCl 1 drop 02/27/18 22:00 03/17/18 10:28 Trusopt 2% OD 1 drop BID [facility] Administration Furosemide 20 mg 03/16/18 11:08 03/17/18 10:26 Lasix - PO 20 mg DAILY [facility] Administration Lactobacillus Acidophilus 1 tab 03/01/18 10:00 03/17/18 10:26 Bacid - PO 1 tab DAILY [facility] Administration Latanoprost 1 drop 02/27/18 22:00 03/16/18 21:32 Xalatan 0.005% Eye Drops - OU 1 drop HS [facility] Administration Levothyroxine Sodium 75 mcg 02/28/18 07:00 03/17/18 06:02 Synthroid - PO 75 mcg DAILY@0700 [facility] Administration Losartan Potassium 25 mg 03/02/18 10:00 03/17/18 10:26 Cozaar - PO 25 mg DAILY [facility] Administration Multivitamins/Minerals/Vitamin C 1 tab 03/07/18 10:00 03/17/18 10:26 Tab-A-Vit - PO 1 tab DAILY [facility] Administration Pantoprazole Sodium 40 mg 02/28/18 10:00 03/17/18 10:26 Protonix - PO 40 mg DAILY [facility] Administration Polyethylene Glycol 17 gm 02/27/18 22:00 03/17/18 10:28 Miralax (For Daily Use) - PO Not Given BID [facility] Simethicone 80 mg 02/28/18 16:54 03/16/18 18:20 Mylicon - PO 80 mg Q4H PRN Administration GAS Simethicone 80 mg 03/12/18 12:35 03/15/18 22:18 Mylicon - PO 80 mg QID PRN Administration CONSTIPATION Sotalol HCl 80 mg 03/01/18 22:00 03/17/18 10:26 Betapace - PO 80 mg BID [facility] Administration Timolol Maleate 1 drop 02/27/18 22:00 03/17/18 10:27 Timoptic 0.5% OU 1 drop BID [facility] Administration Warfarin Sodium 2 mg 03/17/18 18:00 Coumadin - PO DAILY@1800 [facility] HEENT-FANY,EOM intact Oropharynx- no thrush Cor-PAF LungsScattered rals at bases Abd: Soft, Normal bowel sounds, No organomegaly Ext:No significant edema Skin: No rashes, Integument intactImpression: Multiple medical problems PAF- A/C --Note patient was taking Ensure - 3 cans daily and Ensure pudding- all with Vitamin K ASHD/CAD CHF Abdominal pains- improved Retained stone post cholecystectomy -s/p ERCP /sphincterotomy Aortic stenosis Smoldering Myeloma Plan: Office floow up.
[2018-03-17] MEDS: SIMETHICONE 80 MG TAB.CHEW (FP) PO PRN (13:20)
[2018-03-17 13:33] VITALS: BP 140/83; PULSE 73; TEMP 98.2
[2018-03-17] MEDS ORDERED: WARFARIN NA 2 MG TABLET (UD) PO SCH (18:00)
== END 2018-03-17 15:29 | DRG 291 ==
LOC: JER 10:35 → JERBED 12:23 → J4W 22:48 → J7W 03-07 11:27
PROVIDERS: ADMIT Internal Medicine; ATTEND Internal Medicine
PROC: B246ZZ4 Ultrasonography of Right and Left Heart, Transesophageal (ICD-10-PCS; 2018-03-02)
PROC: 5A2204Z Restoration of Cardiac Rhythm, Single (ICD-10-PCS; principal; 2018-03-07)
DX: I13.0 Hypertensive heart and chronic kidney disease with heart failure and stage 1 through stage 4 chronic kidney disease, or unspecified chronic kidney disease (principal); I50.33 Acute on chronic diastolic (congestive) heart failure; N17.9 Acute kidney failure, unspecified; E87.1 Hypo-osmolality and hyponatremia; D68.8 Other specified coagulation defects; N18.9 Chronic kidney disease, unspecified; E78.5 Hyperlipidemia, unspecified; Z95.5 Presence of coronary angioplasty implant and graft; Z79.01 Long term (current) use of anticoagulants; Z95.0 Presence of cardiac pacemaker; E03.9 Hypothyroidism, unspecified; I48.0 Paroxysmal atrial fibrillation; K21.9 Gastro-esophageal reflux disease without esophagitis; I35.0 Nonrheumatic aortic (valve) stenosis; I34.0 Nonrheumatic mitral (valve) insufficiency; I25.118 Atherosclerotic heart disease of native coronary artery with other forms of angina pectoris; T45.511A Poisoning by anticoagulants, accidental (unintentional), initial encounter; N31.9 Neuromuscular dysfunction of bladder, unspecified; R31.9 Hematuria, unspecified; I27.20 Pulmonary hypertension, unspecified; R91.8 Other nonspecific abnormal finding of lung field; K40.90 Unilateral inguinal hernia, without obstruction or gangrene, not specified as recurrent; D47.2 Monoclonal gammopathy; D64.9 Anemia, unspecified; D69.6 Thrombocytopenia, unspecified; K80.50 Calculus of bile duct without cholangitis or cholecystitis without obstruction; K52.9 Noninfective gastroenteritis and colitis, unspecified; K59.00 Constipation, unspecified; K22.2 Esophageal obstruction
CPT/HCPCS: 36415; 71045-TC-FY; 74176-TC; 76856-TC; 80048; 80053; 81003; 81015; 82272; 82550; 82784; 82803; 83605; 83880; 83883; 84155; 84165; 84443; 84484; 85025; 85027; 85610; 85730; 86334; 87040; 87045; 87046; 87086; 87186; 87205; 87324; 87449; 93005; 93010; 93312; 93325; 94761; 97116-GP; 97161-GP; 99285-25; J1644; J7030

== ENCOUNTER 2018-05-26 05:26 | Day surgery (SDC) | payer OTHER, MEDICARE ==
[2018-05-25 14:35] VITALS: BMI 23.8
[2018-05-26] MEDS ORDERED: ETOMIDATE 20 MG/10 ML AMPUL IVPUSH ONE (11:07)
[2018-05-26] MEDS ORDERED: PROPOFOL 20 ML ONE (11:07)
[2018-05-26] MEDS ORDERED: NEOSTIGMINE METHYLSULFATE 0.5 MG/ML - 10 ML MDV ONE (11:07)
[2018-05-26] MEDS ORDERED: ONDANSETRON 4 MG/2 ML VIAL ONE (11:07)
[2018-05-26] MEDS ORDERED: GLYCOPYRROLATE 0.2 MG/1 ML VIAL ONE ×3 (11:07)
[2018-05-26] MEDS ORDERED: ROCURONIUM BROMIDE 50 MG/5 ML VIAL ONE (11:07)
[2018-05-26] MEDS ORDERED: DEXAMETHASONE SOD PHOSPHATE 10 MG/1 ML VIAL ONE (11:08)
[2018-05-26] MEDS ORDERED: ceFAZolin SODIUM 1 GM VIAL ONE (11:22)
[2018-05-26] MEDS ORDERED: ceFAZolin SODIUM 1 GM VIAL IVPB ONE (11:37)
[2018-05-26 12:34] VITALS: TEMP 97.7
[2018-05-26 16:23] VITALS: BP 161/83; PULSE 66
--- NOTE | 2018-05-30 12:53 | PATH ---
Surgical Pathology Report Patient Name: SHAUN KING Med. Rec. #: [id number] /Age/Gender: 1930 (Age: 88) / F Account: [id number] Location: [facility]ENDOSCOPY Taken: 05/26/2018 Received: 05/26/2018 Reported: 05/30/2018 Physicians: Minh Caputo M.D. Specimen(s) Received OLD STENT FROM BILE DUCT Clinical History Choledocholithiasis status post stent Final Diagnosis OLD STENT FROM BILE DUCT, REMOVAL: SEGMENT OF STENT. GROSS EXAMINATION ONLY. Electronically Signed Erin Valente M.D. Gross Description Received fresh labeled "old stent from bile duct," is a 15 cm in length blue, coiled portion of tubing, consistent with a biliary stent. No soft tissue is present. No sections are submitted, gross only. saudi/05/29/2018
== END 2018-05-26 14:50 | disposition home or self-care (01) ==
LOC: JASU-ENDO 05:26
PROVIDERS: ATTEND Internal Medicine Gastroenterology
PROC: 0FPB8DZ Removal of Intraluminal Device from Hepatobiliary Duct, Via Natural or Artificial Opening Endoscopic (ICD-10-PCS; 2018-05-26)
PROC: 0FC98ZZ Extirpation of Matter from Common Bile Duct, Via Natural or Artificial Opening Endoscopic (ICD-10-PCS; principal; 2018-05-26 10:45)
DX: K80.50 Calculus of bile duct without cholangitis or cholecystitis without obstruction (principal)
CPT/HCPCS: 74330-TC; 88300-TC; J1100

== ENCOUNTER 2018-08-16 04:36 | Emergency (ER) | payer OTHER, MEDICARE ==
[2018-08-16 06:04] VITALS: BP 158/100; PULSE 74; TEMP 97.6; BMI 23.6
--- NOTE | 2018-08-16 08:03 | PDOC ---
Attending Attestation - Resident Resident Name: Jose R Brewer - ED Attending Attestation I have performed the following: I have examined & evaluated the patient, The case was reviewed & discussed with the resident, I agree w/resident's findings & plan, Exceptions are as noted - Physicial Exam PE: 08/16/18 12:24 Patient is awake and alert, in no distress Normocephalic and atraumatic PERRLA, EOMI, conjunctiva are pink No JVD CTA Right groin: Significant subcutaneous hematoma with a palpable collection measuring approximately 5 x 7 cm localized over the femoral triangle; femoral pulse is +2. Popliteal and distal pulses are +2 is well bilaterally. - Medical Decision Making 08/16/18 12:25 88-year-old female presents with enlarged cutaneous hematoma which is increased in size from 3-6 cm without mass effect. Hematocrit is noted to be 34 which is patient's baseline. Case discussed with Dr. Mccord of cardiology. He advises no Coumadin for one week which she has personally advised the patient and reevaluation in 48 hours as an outpatient. Patient advised the plan of care and is expressed understanding. <Trav Chen - Last Filed: 08/16/18 12:24> - HPI HPI: This patient is an 88 year old female with PMHx of CBD stone s/p ERCP s/p stent placement, atrial fibrillation (on Coumadin), HTN, HLD, CAD s/p stents and pacemaker, hypothyroidism, diverticulitis, recurrent UTIs who presents with increasing hematoma at the site of right femoral head. Last week she had an angiogram by Dr Méndez for aortic valve replacement. Had an US on 08/11 for eval of the hematoma. Allergies: erythromycin base Past surgical history: Cholecystectomy, appendectomy, hysterectomy PCP: Dr. Jacque Richardson GI: Dr. Caputo Urologist: Halle <Yamila Dewey - Last Filed: 08/16/18 12:27>
[2018-08-16 09:59] LABS: EOS % 4.1 % (0-4.5); HEMATOCRIT 34.2 % (32.4-45.2); HEMOGLOBIN 11.4 GM/dL (10.7-15.3); LYMPH % 17.3 % (8-40); MCH 31.3 pg (25.7-33.7); MCHC 33.3 g/dl (32.0-36.0); MEAN PLT VOLUME 9.4 fl (7.5-11.1); MONO % 9.5 % (3.8-10.2); NEUT % 68.1 % (42.8-82.8); PLATELET COUNT 189 K/MM3 (134-434); RBC 3.64 M/mm3 (3.60-5.2); RDW 14.3 % (11.6-15.6); WHITE BLOOD COUNT 4.8 K/mm3 (4.0-10.0)
[2018-08-16 10:13] LABS: ACTIVATED PTT 46.1 SECONDS (25.2-36.5); INR 1.6 (0.83-1.09)
--- NOTE | 2018-08-16 10:20 | PDOC ---
History of Present Illness <Trav Chen - Last Filed: 08/16/18 12:26> - History of Present Illness Initial Comments: 08/16/18 10:21 88F with pmh of CBD stone s/p ERCP s/p stent placement, atrial fibrillation (on Coumadin), HTN, HLD, CAD s/p stents and pacemaker, hypothyroidism, diverticulitis, recurrent UTIs p/w swelling and hematoma of the right thigh one week after angiogram was performed. 08/16/18 10:35 <Jose R Brewer - Last Filed: 08/16/18 13:03> - General Chief Complaint: Pain Stated Complaint: SWELLING/PAIN RT LEG Time Seen by Provider: 08/16/18 07:49 Past History <Trav Chen - Last Filed: 08/16/18 12:26> - Past Medical History Anemia: No Asthma: No Cancer: No Cardiac Disorders: Yes (PACEMAKER X 1) CVA: No COPD: No CHF: No Dementia: No Diabetes: No GI Disorders: Yes (GALLSTONES EVEN THOUGH SHE HAD GALLBLADDER REMOVED) Disorders: Yes (BLADDER INFECTION) HTN: Yes Hypercholesterolemia: Yes Liver Disease: No Seizures: No Thyroid Disease: Yes (Hypothyroid) - Surgical History Abdominal Surgery: (SLIT IN GALLBLADDDER DUCT, HEMMORHOID REMOVED) Appendectomy: Yes Cardiac Surgery: Yes (PACEMAKER X2 one for bladder) Cholecystectomy: Yes Lung Surgery: No Neurologic Surgery: No Orthopedic Surgery: No - Immunization History Immunization Up to Date: Yes - Suicide/Smoking/Psychosocial Hx Smoking Status: No Smoking History: Never smoked Have you smoked in the past 12 months: No Number of Cigarettes Smoked Daily: 0 Information on smoking cessation initiated: No Hx Alcohol Use: No Drug/Substance Use Hx: No Substance Use Type: None Hx Substance Use Treatment: No <Jose R Brewer - Last Filed: 08/16/18 13:03> - Past Medical History Allergies/Adverse Reactions: Allergies Allergy/AdvReac Type Severity Reaction Status Date / Time erythromycin base Allergy Unknown abdominal Verified 08/16/18 06:01 [Erythromycin Base] pain Home Medications: Ambulatory Orders Simvastatin 20 mg PO DAILY 12/16/16 Methenamine Hippurate [Hiprex [Nf] -] 2 gm PO BID 03/24/17 Brimonidine Tartrate/Timolol [Combigan 0.2%-0.5% Eye Drops] 1 drop OU BID Acetaminophen [Tylenol .Regular Strength -] 650 mg PO Q4H PRN tablet 11/22/17 Polyethylene Glycol 3350 [Miralax 119 gm Btl -] 17 gm PO BID bottle 11/22/17 Ursodiol [Actigal -] 300 mg PO BID #90 capsule 11/22/17 Levothyroxine [Synthroid -] 50 mcg PO MoWeFr@0700 02/23/18 Brimonidine Tartrate [Alphagan 0.2% -] 1 drop OU BID drops 03/10/18 Sotalol HCl [Betapace -] 80 mg PO BID tablet 03/10/18 Furosemide [Lasix -] 20 mg PO DAILY tablet 03/17/18 Atenolol [Tenormin -] 100 mg PO DAILY 05/25/18 Cholecalciferol (Vitamin D3) [Vitamin D -] 1,000 unit PO DAILY 05/25/18 Latanoprost 0.005% Eye Drops [Xalatan 0.005% Eye Drops -] 1 drop HS 05/25/18 Losartan Potassium [Cozaar -] 50 mg PO BID 05/25/18 Multivitamin with Iron [Multivitamins with Iron] 1 tab PO DAILY 05/25/18 Pantoprazole Sodium 40 mg PO DAILY 05/25/18 Cefuroxime Axetil [Ceftin -] 500 mg PO BID #20 tablet 05/26/18 Cefuroxime Axetil [Ceftin -] 500 mg PO Q12H 5 Days #10 tablet 05/26/18 Cefuroxime Axetil [Ceftin -] 500 mg PO Q12H 5 Days #10 tablet 05/26/18 Cefuroxime Axetil [Ceftin -] 500 mg PO Q12H 5 Days #10 tablet 05/26/18 Warfarin Na [Coumadin -] 2 mg PO DAILY@1800 #0 tablet 05/26/18 Abd/GI Specific PMHX - Complaint Specific PMHX Colitis: No Diverticulitis: No Gall Bladder Disease: No GERD: No Hepatitis: No Irritable Bowel Synd (IBS): No Pancreatitis: No GI Ulcer Disease: No <Jose R Brewer - Last Filed: 08/16/18 13:03> Review of Systems - Review of Systems Able to Perform ROS?: Yes Is the patient limited Icelandic proficient: No Constitutional: No: Symptoms Reported HEENTM: No: Symptoms Reported Respiratory: No: Symptoms reported Cardiac (ROS): No: Symptoms Reported ABD/GI: No: Symptoms Reported : No: Symptoms Reported Musculoskeletal: No: Symptoms Reported Integumentary: No: Symptoms Reported Neurological: No: Symptoms reported <Jose R Brewer - Last Filed: 08/16/18 13:03> *Physical Exam - Vital Signs Last Vital Signs Temp Pulse Resp BP Pulse Ox 97.6 F 74 20 158/100 97 08/16/18 06:01 08/16/18 06:01 08/16/18 06:01 08/16/18 06:01 08/16/18 06:01 <Trav Chen - Last Filed: 08/16/18 12:26> - Vital Signs Last Vital Signs Temp Pulse Resp BP Pulse Ox 97.6 F 74 20 158/100 97 08/16/18 06:01 08/16/18 06:01 08/16/18 06:01 08/16/18 06:01 08/16/18 06:01 - Physical Exam General Appearance: Yes: Nourished, Appropriately Dressed, Apparent Distress HEENT: positive: EOMI, ILAN, Normal ENT Inspection Respiratory/Chest: positive: Lungs Clear, Normal Breath Sounds. negative: Chest Tender, Respiratory Distress Cardiovascular: positive: Regular Rhythm, Regular Rate, S1, S2 Gastrointestinal/Abdominal: positive: Normal Bowel Sounds, Flat, Soft. negative : Tender Extremity: positive: Normal Capillary Refill, Normal Inspection, Normal Range of Motion, Other (10x10 hematoma of the inner right thigh. ) Integumentary: positive: Normal Color, Dry, Warm Neurologic: positive: Fully Oriented, Alert, Normal Response, Motor Strength 5/5 <Jose R Brewer - Last Filed: 08/16/18 13:03> ED Treatment Course - LABORATORY CBC & Chemistry Diagram: 08/16/18 09:47 08/16/18 09:47 - ADDITIONAL ORDERS Additional order review: Laboratory Results 08/16/18 08/16/18 08/16/18 09:47 09:47 09:47 PT with INR 19.00 H INR 1.60 H PTT (Actin FS) 46.1 H Sodium 140 Potassium 4.2 Chloride 106 Carbon Dioxide 25 Anion Gap 9 BUN 13 Creatinine 0.5 L Creat Clearance w eGFR > 60 Random Glucose 94 Calcium 9.2 Total Bilirubin 0.8 AST 17 ALT 13 Alkaline Phosphatase 95 Total Protein 7.6 Albumin 3.0 L Blood Type Cancelled Antibody Screen Cancelled 08/16/18 09:47 RBC 3.64 MCV 94.0 MCHC 33.3 RDW 14.3 MPV 9.4 Neutrophils % 68.1 Lymphocytes % 17.3 Monocytes % 9.5 Eosinophils % 4.1 Basophils % 1.0 <Trav Chen - Last Filed: 08/16/18 12:26> - LABORATORY CBC & Chemistry Diagram: 08/16/18 09:47 08/16/18 09:47 - ADDITIONAL ORDERS Additional order review: Laboratory Results 08/16/18 08/16/18 09:47 09:47 PT with INR 19.00 H INR 1.60 H PTT (Actin FS) 46.1 H Blood Type Cancelled Antibody Screen Cancelled 08/16/18 09:47 RBC 3.64 MCV 94.0 MCHC 33.3 RDW 14.3 MPV 9.4 Neutrophils % 68.1 Lymphocytes % 17.3 Monocytes % 9.5 Eosinophils % 4.1 Basophils % 1.0 - RADIOLOGY Radiology Studies Ordered: Category Date Time Status LOWER EXTREMITY CT W/O CONTR [CT] Stat CT Scan 08/16/18 08:11 Taken <Jose R Brewer - Last Filed: 08/16/18 13:03> Medical Decision Making - Medical Decision Making 08/16/18 10:38 Will get labs and CT thigh. 08/16/18 12:[address] Mccord of cardiology. He advises no Coumadin for one week which she has personally advised the patient and reevaluation in 48 hours as an outpatient. Patient advised the plan of care and is expressed understanding <Jose R Brewer - Last Filed: 08/16/18 13:03> *DC/Admit/Observation/Transfer <Trav Chen - Last Filed: 08/16/18 12:26> <Jose R Brewer - Last Filed: 08/16/18 13:03> Diagnosis at time of Disposition: Subcutaneous hematoma Post-operative hemorrhage Qualifiers: Surgical complication system/body Area: circulatory system Procedure type: cardiac catheterization Qualified Code(s): I97.610 - Postprocedural hemorrhage of a circulatory system organ or structure following a cardiac catheterization - Discharge Dispostion Disposition: HOME Condition at time of disposition: Stable - Referrals Referrals: Jacque Richardson [Primary Care Provider] - Lance Mccord MD [Staff Physician] - - Patient Instructions Printed Discharge Instructions: DI for Hematoma (Bruise) Additional Instructions: Do not take Coumadin for 1 week or until urine advised by cardiology. Apply ice to the affected area. Return for outpatient ultrasound to Dr. Mccord's office in 48 hours. Return immediately for severe pain, rapidly enlarging mass. - Post Discharge Activity
[2018-08-16 10:36] LABS: ALK PHOS 95 U/L (45-117); ANION GAP 9 MMOL/L (8-16); BILIRUBIN,TOTAL 0.8 mg/dL (0.2-1); BLOOD UREA NITROGEN 13 mg/dL (7-18); CALCIUM 9.2 mg/dL (8.5-10.1); CHLORIDE 106 mmol/L (98-107); CO2 25 mmol/L (21-32); CREATININE 0.5 mg/dL (0.55-1.3); GLUCOSE,RANDOM 94 mg/dL (74-106); POTASSIUM 4.2 mmol/L (3.5-5.1); SGOT/AST 17 U/L (15-37); SGPT/ALT 13 U/L (13-61); SODIUM 140 mmol/L (136-145); TOT PROT 7.6 g/dl (6.4-8.2)
== END 2018-08-16 12:39 | disposition home or self-care (01) ==
LOC: JER 04:36
DX: L76.32 Postprocedural hematoma of skin and subcutaneous tissue following other procedure (principal); I97.610 Postprocedural hemorrhage of a circulatory system organ or structure following a cardiac catheterization; I25.10 Atherosclerotic heart disease of native coronary artery without angina pectoris; I10 Essential (primary) hypertension; Z95.5 Presence of coronary angioplasty implant and graft; Z95.0 Presence of cardiac pacemaker; E03.9 Hypothyroidism, unspecified; E78.5 Hyperlipidemia, unspecified; Z87.440 Personal history of urinary (tract) infections; K57.20 Diverticulitis of large intestine with perforation and abscess without bleeding; Z90.49 Acquired absence of other specified parts of digestive tract
CPT/HCPCS: 36415; 73700-TC-RT; 80053; 85025; 85610; 85730; 99285-25

== ENCOUNTER 2018-09-21 16:08 | Inpatient (IN) | payer OTHER, MEDICARE ==
--- NOTE | 2018-09-21 16:20 | PDOC ---
Rapid Medical Evaluation Chief Complaint: Pain Time Seen by Provider: 09/21/18 16:16 Medical Evaluation: Allergies Allergy/AdvReac Type Severity Reaction Status Date / Time erythromycin base Allergy Unknown abdominal Verified 08/16/18 06:01 [Erythromycin Base] pain 09/21/18 16:17 I have performed a brief in-person evaluation of this patient. The patient presents with a chief complaint of: abd pain and diffuse diarhea, Dr Androni sent for eval./ taking antibx since tuesday Pertinent physical exam findings: pale, amb , abd soft with some lower abd pain I have ordered the following: CBC, CMP, UA flat and upright Xray ( CT done here Tuesday) The patient will proceed to the ED for further evaluation. 09/21/18 16:19 09/21/18 16:20 09/21/18 16:21
[2018-09-21 17:02] LABS: BASO % 1.2 % (0-2.0); EOS % 4.3 % (0-4.5); HEMATOCRIT 37.3 % (32.4-45.2); HEMOGLOBIN 12.7 GM/dL (10.7-15.3); LYMPH % 23.9 % (8-40); MCH 31.9 pg (25.7-33.7); MEAN CELL VOLUME 93.8 fl (80-96); MEAN PLT VOLUME 9.2 fl (7.5-11.1); MONO % 13.7 % (3.8-10.2); NEUT % 56.9 % (42.8-82.8); PLATELET COUNT 181 K/MM3 (134-434); RBC 3.98 M/mm3 (3.60-5.2); RDW 14.6 % (11.6-15.6); WHITE BLOOD COUNT 4.2 K/mm3 (4.0-10.0)
--- NOTE | 2018-09-21 17:11 | PDOC ---
Attending Attestation - Resident Resident Name: Jerod Dubose - ED Attending Attestation I have performed the following: I have examined & evaluated the patient, The case was reviewed & discussed with the resident, I agree w/resident's findings & plan, Exceptions are as noted - HPI HPI: 09/21/18 17:21 The patient is a 88 year old female with a significant past medical history of CBD stone s/p ERCP s/p stent placement, AFib (on Coumadin), HTN, HLD, CAD s/p stents and pacemaker, hypothyroidism, diverticulitis, and recurrent UTIs who presents to the ED with complaints of diarrhea since yesterday. Patient reports multiple episodes of water loose stools. She states she was recently on antibiotics for a UTI several weeks ago. She also reports she recently had a CT performed 6 days ago that showed a SBO and is managing it at home. Deneis fever or chills. Denies nausea, vomiting. Denies any other symptoms. - Physicial Exam PE: 09/21/18 18:40 GENERAL: The patient is awake, alert, and fully oriented, Nontoxic - in no acute distress. HEAD: Normocephalic, atraumatic. ENT: Normal voice, mildly dry mucous membranes. LUNGS: Breath sounds equal, clear to auscultation bilaterally. No wheezes, no rhonchi, no rales. HEART: Regular rate and rhythm, normal S1 and S2 without murmur, rub or gallop. ABDOMEN: Soft, nontender, No guarding, no rebound. . No CVA tenderness EXTREMITIES: Normal range of motion, no edema. NEUROLOGICAL: No facial assymetry, Normal speech, normal gait, moving all 4 extreimties spontnaeously and symmetrically PSYCH: Normal mood, normal affect. SKIN: Warm, Dry, normal turgor, - Medical Decision Making 09/21/18 18:41 consider viral illness vs. cdiff no improvement on vancomycin will admit for further mangment
[2018-09-21 17:28] LABS: ALBUMIN 3.2 g/dl (3.4-5.0); ALK PHOS 95 U/L (45-117); ANION GAP 8 MMOL/L (8-16); BILIRUBIN,TOTAL 0.5 mg/dL (0.2-1); BLOOD UREA NITROGEN 15 mg/dL (7-18); CALCIUM 9.1 mg/dL (8.5-10.1); CHLORIDE 100 mmol/L (98-107); CO2 28 mmol/L (21-32); CREATININE 0.6 mg/dL (0.55-1.3); GLUCOSE,RANDOM 115 mg/dL (74-106); SGOT/AST 17 U/L (15-37); SGPT/ALT 18 U/L (13-61); SODIUM 137 mmol/L (136-145); TOT PROT 7.9 g/dl (6.4-8.2)
[2018-09-21 17:35] LABS: INR 3.24 (0.83-1.09); PROTHROMBIN TIME (PATIENT) 38.7 SEC (9.7-13.0)
--- NOTE | 2018-09-21 17:45 | PDOC ---
History of Present Illness - General Chief Complaint: Pain Stated Complaint: STOMACH PAIN Time Seen by Provider: 09/21/18 16:16 History Source: Patient Exam Limitations: No Limitations - History of Present Illness Initial Comments: 09/21/18 17:34 Patient is an 88F with history of appedectomy, cholecystectomy, hysterectomy, afib (on coumadin), aortic valve disease here today complaining of diarrhea for the past 8 days. Patient has been on oral vancomycin for 1 week. Denies fevers, chills, nausea, vomiting. Patient was recently on an antibiotic for a UTI and has been prescribed vancomycin PO for presumed C diff by her PCP Dr Richardson. Patient also had a CT scan done 6 days ago that showed a partial SBO. Patient has been tolerating PO at home. Patient comes in today because of multiple episodes of diarrhea that come on so rapidly she cannot get to the bathroom. No chest pain, shortness of breath. Past History - Past Medical History Allergies/Adverse Reactions: Allergies Allergy/AdvReac Type Severity Reaction Status Date / Time erythromycin base Allergy Unknown abdominal Verified 09/21/18 16:22 [Erythromycin Base] pain Home Medications: Ambulatory Orders Simvastatin 20 mg PO DAILY 12/16/16 Methenamine Hippurate [Hiprex [Nf] -] 2 gm PO BID 03/24/17 Brimonidine Tartrate/Timolol [Combigan 0.2%-0.5% Eye Drops] 1 drop OU BID Acetaminophen [Tylenol .Regular Strength -] 650 mg PO Q4H PRN tablet 11/22/17 Polyethylene Glycol 3350 [Miralax 119 gm Btl -] 17 gm PO BID bottle 11/22/17 Ursodiol [Actigal -] 300 mg PO BID #90 capsule 11/22/17 Levothyroxine [Synthroid -] 50 mcg PO MoWeFr@0700 02/23/18 Brimonidine Tartrate [Alphagan 0.2% -] 1 drop OU BID drops 03/10/18 Sotalol HCl [Betapace -] 80 mg PO BID tablet 03/10/18 Furosemide [Lasix -] 20 mg PO DAILY tablet 03/17/18 Atenolol [Tenormin -] 100 mg PO DAILY 05/25/18 Cholecalciferol (Vitamin D3) [Vitamin D -] 1,000 unit PO DAILY 05/25/18 Latanoprost 0.005% Eye Drops [Xalatan 0.005% Eye Drops -] 1 drop HS 05/25/18 Losartan Potassium [Cozaar -] 50 mg PO BID 05/25/18 Multivitamin with Iron [Multivitamins with Iron] 1 tab PO DAILY 05/25/18 Pantoprazole Sodium 40 mg PO DAILY 05/25/18 Cefuroxime Axetil [Ceftin -] 500 mg PO BID #20 tablet 05/26/18 Cefuroxime Axetil [Ceftin -] 500 mg PO Q12H 5 Days #10 tablet 05/26/18 Cefuroxime Axetil [Ceftin -] 500 mg PO Q12H 5 Days #10 tablet 05/26/18 Cefuroxime Axetil [Ceftin -] 500 mg PO Q12H 5 Days #10 tablet 05/26/18 Warfarin Na [Coumadin -] 2 mg PO DAILY@1800 #0 tablet 05/26/18 Anemia: No Asthma: No Cancer: No Cardiac Disorders: Yes (PACEMAKER X 1) CVA: No COPD: No CHF: No Dementia: No Diabetes: No GI Disorders: Yes (GALLSTONES EVEN THOUGH SHE HAD GALLBLADDER REMOVED) Disorders: Yes (BLADDER INFECTION) HTN: Yes Hypercholesterolemia: Yes Liver Disease: No Seizures: No Thyroid Disease: Yes (Hypothyroid) - Surgical History Abdominal Surgery: (SLIT IN GALLBLADDDER DUCT, HEMMORHOID REMOVED) Appendectomy: Yes Cardiac Surgery: Yes (PACEMAKER X2 one for bladder) Cholecystectomy: Yes Lung Surgery: No Neurologic Surgery: No Orthopedic Surgery: No - Immunization History Immunization Up to Date: Yes - Suicide/Smoking/Psychosocial Hx Smoking Status: No Smoking History: Never smoked Have you smoked in the past 12 months: No Number of Cigarettes Smoked Daily: 0 Information on smoking cessation initiated: No Hx Alcohol Use: No Drug/Substance Use Hx: No Substance Use Type: None Hx Substance Use Treatment: No Review of Systems - Review of Systems Comments:: 09/21/18 17:38 GENERAL/CONSTITUTIONAL: No fever or chills. No weakness. HEAD, EYES, EARS, NOSE AND THROAT: No change in vision. No sore throat. CARDIOVASCULAR: No chest pain or shortness of breath RESPIRATORY: No cough, wheezing, or hemoptysis. GASTROINTESTINAL: No nausea, vomiting, +diarrhea. GENITOURINARY: No dysuria, frequency, or change in urination. MUSCULOSKELETAL: No joint or muscle swelling or pain. No neck or back pain. SKIN: No rash NEUROLOGIC: No headache, vertigo, loss of consciousness, or change in strength/ sensation. ENDOCRINE: No increased thirst. No abnormal weight change HEMATOLOGIC/LYMPHATIC: No anemia, easy bleeding, or history of blood clots. ALLERGIC/IMMUNOLOGIC: No hives or skin allergy. *Physical Exam - Vital Signs Last Vital Signs Temp Pulse Resp BP Pulse Ox 97.7 F 68 19 145/86 98 09/21/18 16:20 09/21/18 16:20 09/21/18 16:20 09/21/18 16:20 09/21/18 16:20 - Physical Exam Comments: 09/21/18 17:45 GENERAL: Awake, alert, and fully oriented, in no acute distress HEAD: No signs of trauma, normocephalic, atraumatic EYES: PERRLA, EOMI, sclera anicteric, conjunctiva clear ENT: Auricles normal inspection, hearing grossly normal, nares patent, oropharynx clear without exudates. Moist mucosa NECK: Normal ROM, supple, no lymphadenopathy, JVD, or masses LUNGS: No distress, speaks full sentences, clear to auscultation bilaterally HEART: Regular rate and rhythm, normal S1 and S2, no murmurs, rubs or gallops, peripheral pulses normal and equal bilaterally. ABDOMEN: Soft, mild LLQ tenderness, normoactive bowel sounds. No guarding, no rebound. No masses EXTREMITIES: Normal inspection, Normal range of motion, no edema. No clubbing or cyanosis. NEUROLOGICAL: Cranial nerves II through XII grossly intact. Normal speech, normal gait, no focal sensorimotor deficits SKIN: Warm, Dry, normal turgor, no rashes or lesions noted. ED Treatment Course - LABORATORY CBC & Chemistry Diagram: 09/21/18 16:42 09/21/18 16:08 - ADDITIONAL ORDERS Additional order review: Laboratory Results 09/21/18 16:08 Sodium 137 Potassium 4.0 Chloride 100 Carbon Dioxide 28 Anion Gap 8 BUN 15 Creatinine 0.6 Creat Clearance w eGFR > 60 Random Glucose 115 H Calcium 9.1 Total Bilirubin 0.5 AST 17 ALT 18 Alkaline Phosphatase 95 Total Protein 7.9 Albumin 3.2 L 09/21/18 16:42 RBC 3.98 MCV 93.8 MCHC 34.0 RDW 14.6 MPV 9.2 Neutrophils % 56.9 Lymphocytes % 23.9 D Monocytes % 13.7 H Eosinophils % 4.3 Basophils % 1.2 Medical Decision Making - Medical Decision Making 09/21/18 17:45 Patient is 88F with history of afib (on coumadin), HTN, multiple abdominal surgeries, HTN, HLD, hypothyroidism here today with diarrhea. Vitals normal and stable. DDx includes but is not limited to: c diff, colitis. Do not suspect patient having sbo as she is tolerating PO without nausea/vomiting and having bowel movements. History consistent with c diff. Contact precautions placed. 09/21/18 17:49 CBC/CMP wnl, INR slightly supratherapeutic. Call placed to Dr Richardson. 09/21/18 18:00 Will admit for failure of outpatient therapy. Patient has been on treatment for one week with no improvement of symptoms, is medically frail, lives alone, is dehydrated. *DC/Admit/Observation/Transfer Diagnosis at time of Disposition: Diarrhea - Discharge Dispostion Condition at time of disposition: Stable Decision to Admit order: Yes - Referrals - Patient Instructions - Post Discharge Activity
--- NOTE | 2018-09-21 22:18 | HP ---
Admitting History and Physical - Primary Care Physician PCP: Jacque Richardson S - Admission Chief Complaint: intractable diarrhea and abdominal pain. History of Present Illness: The patient is a 88 year old female with a significant past medical history of CBD stone s/p ERCP s/p stent placement, AFib (on Coumadin), HTN, HLD, CAD s/p stents and pacemaker, hypothyroidism, diverticulitis, and recurrent UTIs who presents to the ED with complaints of diarrhea since yesterday. Patient reports multiple episodes of water loose stools. She states she was recently on antibiotics for a UTI last week. She also reports she recently had a CT performed 6 days ago that showed a SBO and is managing it at home. She denies fever or chills. Denies nausea, vomiting. Denies any other symptoms. d/w pt and pt's daughter History Source: Patient, Family Member, Medical Record Limitations to Obtaining History: No Limitations - Past Medical History WATCH [employer]OR: Yes: Other (macular degeneration) Cardiovascular: Yes: AFIB, Aortic Stenosis (0.7cm), HTN, Hyperlipdemia, Mitral Insufficiency, Pulmonary Hypertension, Other (Episodes of vaso-depressive syncope, has PPM) Gastrointestinal: Yes: Diverticulitis (02/21), Diverticulosis, Hemorrhoids, Other (SBO in 10/26, ischemic colitis 10/26) Hepatobiliary: Yes: Cholelithiasis (s/pcholecsytectomy), Choledocholithiasis ( ERCP/sphincerotomy for CBD stone) Renal/: Yes: Neurogenic Bladder (had bladder stimulator placed) Heme/Onc: Yes: Other (Had bone marrow with Dr. Malik, ? 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 ) Infectious Disease: Yes: Herpes Zoster (2008) Musculoskeletal: Yes: Chronic low back pain, Osteoarthritis, Other (Spinal stenosis and C spine fracture.) Endocrine: Yes: Hypothyroidism - Past Surgical History Past Surgical History: Yes: Appendectomy, Cataract Removal, Cholecystectomy, Colonoscopy, Hysterectomy, Permanent Pacemaker, Tonsillectomy, Upper Endoscopy - Smoking History Smoking history: Never smoked Have you smoked in the past 12 months: No Aproximately how many cigarettes per day: 0 - Alcohol/Substance Use Hx Alcohol Use: No History of Substance Use: reports: None - Social History Usual Living Arrangement: Yes: Alone ADL: Independent 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 History of Recent Travel: No Home Medications - Allergies Allergies/Adverse Reactions: Allergies Allergy/AdvReac Type Severity Reaction Status Date / Time erythromycin base Allergy Unknown abdominal Verified 09/21/18 16:22 [Erythromycin Base] pain - Home Medications Home Medications: Ambulatory Orders Simvastatin 20 mg PO DAILY 12/16/16 Methenamine Hippurate [Hiprex [Nf] -] 2 gm PO BID 03/24/17 Levothyroxine [Synthroid -] 50 mcg PO MoWeFr@0700 02/23/18 Brimonidine Tartrate [Alphagan 0.2% -] 1 drop OU BID drops 03/10/18 Sotalol HCl [Betapace -] 80 mg PO BID tablet 03/10/18 Furosemide [Lasix -] 20 mg PO DAILY tablet 03/17/18 Atenolol [Tenormin -] 100 mg PO DAILY 05/25/18 Cholecalciferol (Vitamin D3) [Vitamin D -] 1,000 unit PO DAILY 05/25/18 Latanoprost 0.005% Eye Drops [Xalatan 0.005% Eye Drops -] 1 drop HS 05/25/18 Losartan Potassium [Cozaar -] 50 mg PO BID 05/25/18 Multivitamin with Iron [Multivitamins with Iron] 1 tab PO DAILY 05/25/18 Pantoprazole Sodium 40 mg PO DAILY 05/25/18 Warfarin Na [Coumadin -] 2 mg PO DAILY@1800 #0 tablet 05/26/18 Benzocaine Ointment [Americaine Ointment -] 1 applic TN Q8H PRN tube 09/24/18 Polyethylene Glycol 3350 [Miralax 119 gm Btl -] 17 gm PO TID bottle 09/24/18 Family Disease History - Family Disease History Family Disease History: Diabetes: Brother (colon adenoma), Heart Disease: Father ( 76, H/O alcohol), Mother (,CKD), Brother, [place]: Son (brainneoplasm), Other: Father, Brother Review of Systems - Review of Systems Constitutional: reports: Loss of Appetite. denies: Chills, Fever, Lethargy Eyes: denies: Blind Spots, Blurred Vision HENT: denies: Epistaxis Neck: denies: Decreased ROM, Stiffness Cardiovascular: denies: Chest Pain, Shortness of Breath Respiratory: denies: Cough, SOB Gastrointestinal: reports: Abdominal Pain, Bloating, Diarrhea. denies: Constipation, Rectal Bleeding, Vomiting, Vomiting Blood Genitourinary: denies: Burning, Discharge, Dysuria, Flank Pain, Hematuria Musculoskeletal: denies: Back Pain, Joint Pain, Joint Swelling Integumentary: denies: Erythema, Rash, Wound Neurological: denies: Change in LOC, Change in Speech, Confusion, Dizziness, Seizure, Syncope Endocrine: denies: Unexplained Weight Gain, Unexplained Weight Loss Hematology/Lymphatic: denies: Easily Bruised, Excessive Bleeding Psychiatric: denies: Altered Sleep Pattern, Anxiety, Depression, Suicidal Physical Examination Vital Signs: Vital Signs Temperature 97.7 F 09/21/18 16:20 Pulse Rate 68 09/21/18 16:20 Respiratory Rate 19 09/21/18 16:20 Blood Pressure 145/86 09/21/18 16:20 O2 Sat by Pulse Oximetry (%) 98 09/21/18 16:20 Constitutional: Yes: No Distress, Calm Eyes: Yes: Conjunctiva Clear HENT: Yes: Atraumatic Neck: Yes: Supple Cardiovascular: Yes: Regular Rate and Rhythm Respiratory: Yes: CTA Bilaterally Gastrointestinal: Yes: Soft, Distention, Tenderness (mild generalized) Renal/: No: CVA Tenderness - Left, CVA Tenderness - Right, Hematuria Musculoskeletal: No: Back Pain, Joint Stiffness Extremities: No: Calf Tenderness, Cold, Cool, Cyanosis Edema: No Integumentary: No: Rash, Venous Stasis Changes Neurological: Yes: WNL, Alert, Oriented ...Motor Strength: WNL Psychiatric: Yes: WNL, Alert, Oriented. No: Agitated, Suicidal Ideation Labs: CBC, BMP 09/21/18 16:42 09/21/18 16:08 Imaging - Results Chest X-ray: Report Reviewed Cat Scan: Report Reviewed Other: Report Reviewed Assessment/Plan The patient is a 88 year old female with a significant past medical history of CBD stone s/p ERCP s/p stent placement, AFib (on Coumadin), HTN, HLD, CAD s/p stents and pacemaker, hypothyroidism, diverticulitis, and recurrent UTIs who presents to the ED with complaints of intractable diarrhea since yesterday and abdominal pain for few days after finishing po ATB for UTI recently. Recent abdomen CT c/w moderate SBO but clinically no obstruction. R/o CDiff colitis; was on po vanco with modest improvement. admit; GI and surgery eval stools for CDiff po vanco for now f/u labs; d/w pt and daughter and staff
[2018-09-22] MEDS ORDERED: LEVOTHYROXINE NA 25 MCG TABLET (FP) ONE (07:55)
[2018-09-22] MEDS: LEVOTHYROXINE NA 50 MCG TABLET (FP) PO SCH (07:58)
[2018-09-22 08:34] LABS: INR 2.98 (0.83-1.09); PROTHROMBIN TIME (PATIENT) 35.5 SEC (9.7-13.0)
[2018-09-22 08:53] LABS: URINE APPEARANCE CLEAR; URINE BILIRUBIN NEGATIVE (<2.0 mg/dL); URINE COLOR LTYELLOW; URINE GLUCOSE (UA) NEGATIVE (NEGATIVE); URINE KETONE NEGATIVE (NEGATIVE); URINE LEUK ESTERASE NEGATIVE (NEGATIVE); URINE NITRITE NEGATIVE (NEGATIVE); URINE PROTEIN NEGATIVE (NEGATIVE); URINE UROBILINOGEN NEGATIVE mg/dL (0.2-1.0)
--- NOTE | 2018-09-22 09:29 | PN ---
Progress Note, Physician Chief Complaint: seen by GI and surgery; repeat abdomen CT no SBO started on miralax for presumed constipation; still with lots of diarrhea - Current Medication List Current Medications: Active Medications Atenolol (Tenormin -) 100 mg PO DAILY [facility] Atorvastatin Calcium (Lipitor -) 10 mg PO HS [facility] Brimonidine Tartrate (Alphagan 0.2% -) 1 drop OU BID [facility] Cholecalciferol (Vitamin D3 -) 1,000 unit PO DAILY [facility] Furosemide (Lasix -) 20 mg PO DAILY [facility] Latanoprost (Xalatan 0.005% Eye Drops -) 1 drop OU HS [facility] Levothyroxine Sodium (Synthroid -) 50 mcg PO MoWeFr@0700 [facility] Last Admin: 09/22/18 07:58 Dose: 50 mcg Losartan Potassium (Cozaar -) 50 mg PO BID [facility] Multivitamins/Minerals/Vitamin C (Tab-A-Vit -) 1 tab PO DAILY [facility] Non-Formulary Medication (Methenamine Hippurate) 2 gm PO BID [facility] Pantoprazole Sodium (Protonix -) 40 mg PO DAILY [facility] Sotalol HCl (Betapace -) 80 mg PO BID [facility] Warfarin Sodium (Coumadin -) 2 mg PO DAILY@1800 [facility] - Objective Vital Signs: Vital Signs Temperature 97.9 F 09/22/18 02:16 Pulse Rate 68 09/22/18 02:16 Respiratory Rate 17 09/22/18 02:16 Blood Pressure 154/86 09/22/18 02:16 O2 Sat by Pulse Oximetry (%) 97 09/22/18 02:16 Constitutional: Yes: No Distress, Calm Eyes: Yes: Conjunctiva Clear HENT: Yes: Atraumatic Neck: Yes: Supple Cardiovascular: Yes: Regular Rate and Rhythm Respiratory: Yes: CTA Bilaterally Gastrointestinal: Yes: Soft. No: Distention, Tenderness Genitourinary: No: CVA Tenderness - Left, CVA Tenderness - Right Musculoskeletal: No: Joint Stiffness, Joint Swelling Extremities: No: Cold, Cool, Cyanosis Edema: No Integumentary: No: Rash, Venous Stasis Changes Neurological: Yes: WNL, Alert, Oriented ...Motor Strength: WNL Psychiatric: Yes: WNL, Alert, Oriented. No: Agitated, Suicidal Ideation Labs: CBC, BMP 09/21/18 16:42 11/08/18 16:08 INR, PTT INR 2.98 (0.83-1.09) H 09/22/18 06:30 - ....Imaging Other: Report Reviewed Assessment/Plan The patient is a 88 year old female with a significant past medical history of CBD stone s/p ERCP s/p stent placement, AFib (on Coumadin), HTN, HLD, CAD s/p stents and pacemaker, hypothyroidism, diverticulitis, and recurrent UTIs who presents to the ED with complaints of intractable diarrhea abdominal pain for few days after finishing po ATB for UTI recently. Recent abdomen CT c/w moderate SBO but clinically no obstruction. Repeat CT no SBO. R/o CDiff colitis ; was on po vanco with modest improvement. GI and surgery f/u stools for CDiff po vanco for now f/u labs; d/w pt and staff
[2018-09-22] MEDS ORDERED: METHENAMINE HIPPURATE PO SCH (10:00)
[2018-09-22] MEDS: CHOLECALCIFEROL (VITAMIN D3) 1,000 UNIT TABLET (FP) PO SCH (10:12)
[2018-09-22] MEDS: SOTALOL HCL 80 MG TABLET (FP) PO SCH ×2 (10:12→21:21)
[2018-09-22] MEDS: LOSARTAN POTASSIUM 50 MG TABLET (FP) PO SCH ×2 (10:12→21:21)
[2018-09-22] MEDS: BRIMONIDINE TARTRATE 0.2% OPHTHALMIC 5 ML BOTTLE OU SCH ×2 (10:12→21:21)
[2018-09-22] MEDS: FUROSEMIDE 20 MG TABLET (FP) PO SCH (10:12)
[2018-09-22] MEDS: PANTOPRAZOLE 40 MG TABLET (FP) PO SCH (10:12)
[2018-09-22] MEDS: MULTIVITAMINS (DAILY MVI) TABLET (FP) PO SCH (10:12)
[2018-09-22] MEDS: ATENOLOL 50 MG TABLET (FP) PO SCH (10:12)
--- NOTE | 2018-09-22 13:34 | PN ---
Progress Note (short form) - Note Progress Note: surgery pt admitted for diarrhea and asked to evaluate for sbo. ct 5 days ago shows contrast in cecum but radiologist thought possible psbo. Ct today shows no obstrution. no indication for surgery. spoke with Dr. Richardson. labs normal
[2018-09-22] MEDS ORDERED: PT OWN MED DRAWER 7, Y5N ONE ×2 (15:18→20:54)
[2018-09-22] MEDS: WARFARIN NA 2 MG TABLET (UD) PO SCH (16:56)
--- NOTE | 2018-09-22 18:12 | CON.GI ---
Consult Consult Specialty:: Gastroenterology Referred by:: Dr Richardson Reason for Consultation:: Diarrhea - History of Present Illness Chief Complaint: Pain and diarrhea x past week History of Present Illness: 88F developed crampy lower abdominal pain last week with loose stools. She was started on vancomycin for suspected C diff colitis as she had recent antibiotic exposure. When she failed to improve she was referred for a CTscan that suggested an SBO. Following the CT contrast she developed severe lower abdominal cramps that were relieved after several episodes of diarrhea. Her loose stools have persisted through the week leading to this hospitalization.. Her FUA today revealed no obstruction but does reveal copious residual stool. Repeat CT today reveals no obstruction. She denies vomiting or fevers. 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: Other (macular degeneration) Cardio/Vascular: Yes: AFIB, Aortic Stenosis (0.7cm), HTN, Hyperlipdemia, Mitral Insufficiency, Pulmonary Hypertension, Other (Episodes of vaso-depressive syncope, has PPM) Gastrointestinal: Yes: Diverticulitis (02/21), Diverticulosis, Hemorrhoids, Other (SBO in 10/26, ischemic colitis 10/26) Hepatobiliary: Yes: Cholelithiasis (s/pcholecsytectomy), Choledocholithiasis ( ERCP/sphincerotomy for CBD stone) Renal/: Yes: Neurogenic Bladder (had bladder stimulator placed) ...: No Infectious Disease: Yes: Herpes Zoster (2008) Musculoskeletal: Yes: Chronic low back pain, Osteoarthritis, Other (Spinal stenosis and C spine fracture.) Endocrine: Yes: Hypothyroidism Additional Medical History: Fibrocystic breast disease. Macular degeneration. Herpes Zoster 2008. Ischemic colitis and SBO 2012. Diverticulitis 02/21. C spine fracture. Spinal stenosis. 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 Place of : [facility] History of Recent Travel: No Home Medications - Allergies Allergies/Adverse Reactions: Allergies Allergy/AdvReac Type Severity Reaction Status Date / Time erythromycin base Allergy Unknown abdominal Verified 09/21/18 16:22 [Erythromycin Base] pain - Home Medications Home Medications: Ambulatory Orders Simvastatin 20 mg PO DAILY 12/16/16 Methenamine Hippurate [Hiprex [Nf] -] 2 gm PO BID 03/24/17 Levothyroxine [Synthroid -] 50 mcg PO MoWeFr@0700 02/23/18 Brimonidine Tartrate [Alphagan 0.2% -] 1 drop OU BID drops 03/10/18 Sotalol HCl [Betapace -] 80 mg PO BID tablet 03/10/18 Furosemide [Lasix -] 20 mg PO DAILY tablet 03/17/18 Atenolol [Tenormin -] 100 mg PO DAILY 05/25/18 Cholecalciferol (Vitamin D3) [Vitamin D -] 1,000 unit PO DAILY 05/25/18 Latanoprost 0.005% Eye Drops [Xalatan 0.005% Eye Drops -] 1 drop HS 05/25/18 Losartan Potassium [Cozaar -] 50 mg PO BID 05/25/18 Multivitamin with Iron [Multivitamins with Iron] 1 tab PO DAILY 05/25/18 Pantoprazole Sodium 40 mg PO DAILY 05/25/18 Warfarin Na [Coumadin -] 2 mg PO DAILY@1800 #0 tablet 05/26/18 Family Disease History - Family Disease History Family Disease History: Diabetes: Brother (colon adenoma), Heart Disease: Father ( 76, H/O alcohol), Mother (,CKD), Brother, [place]: Son (brainneoplasm), Other: Father, Brother Review of Systems - Review of Systems Constitutional: reports: Loss of Appetite, Unintentional Wgt. Loss, Weakness Eyes: reports: No Symptoms HENT: reports: No Symptoms Neck: reports: No Symptoms Cardiovascular: reports: No Symptoms Respiratory: reports: Exercise Intolerance Gastrointestinal: reports: Abdominal Pain, Bloating, Diarrhea Physical Exam-GI Vital Signs: Vital Signs Temperature 97.4 F L 09/22/18 14:36 Pulse Rate 74 09/22/18 14:36 Respiratory Rate 20 09/22/18 14:36 Blood Pressure 152/95 09/22/18 14:36 O2 Sat by Pulse Oximetry (%) 98 09/22/18 09:30 CBC,CMP WBC 4.2 K/mm3 (4.0-10.0) 09/21/18 16:42 RBC 3.98 M/mm3 (3.60-5.2) 09/21/18 16:42 Hgb 12.7 GM/dL (10.7-15.3) 09/21/18 16:42 Hct 37.3 % (32.4-45.2) 09/21/18 16:42 MCV 93.8 fl (80-96) 09/21/18 16:42 MCH 31.9 pg (25.7-33.7) 09/21/18 16:42 MCHC 34.0 g/dl (32.0-36.0) 09/21/18 16:42 RDW 14.6 % (11.6-15.6) 09/21/18 16:42 Plt Count 181 K/MM3 (134-434) 09/21/18 16:42 MPV 9.2 fl (7.5-11.1) 09/21/18 16:42 Absolute Neuts (auto) 2.4 K/mm3 (1.5-8.0) 09/21/18 16:42 Neutrophils % 56.9 % (42.8-82.8) 09/21/18 16:42 Lymphocytes % 23.9 % (8-40) D 09/21/18 16:42 Monocytes % 13.7 % (3.8-10.2) H 09/21/18 16:42 Eosinophils % 4.3 % (0-4.5) 09/21/18 16:42 Basophils % 1.2 % (0-2.0) 09/21/18 16:42 Nucleated RBC % 0 % (0-0) 09/21/18 16:42 Sodium 137 mmol/L (136-145) 09/21/18 16:08 Potassium 4.0 mmol/L (3.5-5.1) 09/21/18 16:08 Chloride 100 mmol/L (98-107) 09/21/18 16:08 Carbon Dioxide 28 mmol/L (21-32) 09/21/18 16:08 Anion Gap 8 MMOL/L (8-16) 09/21/18 16:08 BUN 15 mg/dL (7-18) 09/21/18 16:08 Creatinine 0.6 mg/dL (0.55-1.3) 09/21/18 16:08 Creat Clearance w eGFR > 60 (>60) 09/21/18 16:08 Random Glucose 115 mg/dL (74-106) H 09/21/18 16:08 Calcium 9.1 mg/dL (8.5-10.1) 09/21/18 16:08 Total Bilirubin 0.5 mg/dL (0.2-1) 09/21/18 16:08 AST 17 U/L (15-37) 09/21/18 16:08 ALT 18 U/L (13-61) 09/21/18 16:08 Alkaline Phosphatase 95 U/L (45-117) 09/21/18 16:08 Total Protein 7.9 g/dl (6.4-8.2) 09/21/18 16:08 Albumin 3.2 g/dl (3.4-5.0) L 09/21/18 16:08 Current Medications Generic Name Dose Route Start Last Admin Trade Name Freq PRN Reason Stop Dose Admin Atenolol 100 mg 09/22/18 10:00 09/22/18 10:12 Tenormin - PO 100 mg DAILY [facility] Administration Atorvastatin Calcium 10 mg 09/22/18 22:00 Lipitor - PO HS [facility] Brimonidine Tartrate 1 drop 09/22/18 10:00 09/22/18 10:12 Alphagan 0.2% - OU Not Given BID [facility] Cholecalciferol 1,000 unit 09/22/18 10:00 09/22/18 10:12 Vitamin D3 - PO 1,000 unit DAILY [facility] Administration Furosemide 20 mg 09/22/18 10:00 09/22/18 10:12 Lasix - PO 20 mg DAILY [facility] Administration Latanoprost 1 drop 09/22/18 22:00 Xalatan 0.005% Eye Drops - OU HS [facility] Levothyroxine Sodium 50 mcg 09/22/18 07:00 09/22/18 07:58 Synthroid - PO 50 mcg MoWeFr@0700 [facility] Administration Losartan Potassium 50 mg 09/22/18 10:00 09/22/18 10:12 Cozaar - PO 50 mg BID [facility] Administration Multivitamins/Minerals/Vitamin C 1 tab 09/22/18 10:00 11/09/18 10:12 Tab-A-Vit - PO 1 tab DAILY [facility] Administration Non-Formulary Medication 2 gm 09/22/18 10:00 Methenamine Hippurate PO BID [facility] Pantoprazole Sodium 40 mg 09/22/18 10:00 09/22/18 10:12 Protonix - PO 40 mg DAILY [facility] Administration Sotalol HCl 80 mg 09/22/18 10:00 09/22/18 10:12 Betapace - PO 80 mg BID [facility] Administration Warfarin Sodium 2 mg 09/22/18 18:00 09/22/18 16:56 Coumadin - PO 2 mg DAILY@1800 [facility] Administration Constitutional: Yes: Anxious Eyes: Yes: Conjunctiva Clear HENT: Yes: Normocephalic Neck: Yes: Supple Cardiovascular: Yes: Pulse Irregular Respiratory: Yes: CTA Bilaterally Gastrointestinal Inspection: Yes: Scars (healed oblique ADRIANA, vertical RLQ and Pfannensteil incisions) ...Palpate: Yes: Soft, Other (nontender left inguinal hernia) ...Percussion: Yes: Tympanitic ...Rectal Exam: Yes: Deferred (patient is sitting in chair, no masses in office earlier this year) Labs: CBC, BMP 09/21/18 16:42 09/21/18 16:08 INR, PTT INR 2.98 (0.83-1.09) H 09/22/18 06:30 Problem List - Problems (1) Constipation Assessment/Plan: After reviewing the imaging and her history I believe the picture is most consistent with a fecal impaction developing despite taking Miralax daily. The CT contrast placed the impaction into motion causing her intestinal colic and this week's loose BM ( actually has hard chunks of stool admixed with liquid). I will ordered Miralax TID x 2 days. If she is able to eat discharge can be considered. A Miarax regimen at home was discussed with her. Code(s): K59.00 - CONSTIPATION, UNSPECIFIED Qualifiers: Constipation type: unspecified constipation type Qualified Code(s): K59.00 - Constipation, unspecified (2) Abdominal pain Code(s): R10.9 - UNSPECIFIED ABDOMINAL PAIN Qualifiers: (3) Fecal impaction of colon Code(s): K56.41 - FECAL IMPACTION
[2018-09-22] MEDS: LATANOPROST 0.005% OPHTH SOLN 2.5ML BOTTLE OU SCH (21:21)
[2018-09-22] MEDS: POLYETHYLENE GLYCOL 3350 119 GM BTL PO SCH (21:22)
[2018-09-22] MEDS: ATORVASTATIN CA 10 MG TABLET (FP) PO SCH (21:22)
[2018-09-23] MEDS: POLYETHYLENE GLYCOL 3350 119 GM BTL PO SCH ×3 (06:15→21:41)
[2018-09-23] MEDS ORDERED: PT OWN MED DRAWER 7, Y5N ONE ×2 (09:02→21:37)
[2018-09-23] MEDS: MULTIVITAMINS (DAILY MVI) TABLET (FP) PO SCH (09:06)
[2018-09-23] MEDS: SOTALOL HCL 80 MG TABLET (FP) PO SCH ×2 (09:06→21:41)
[2018-09-23] MEDS: ATENOLOL 50 MG TABLET (FP) PO SCH (09:06)
[2018-09-23] MEDS: CHOLECALCIFEROL (VITAMIN D3) 1,000 UNIT TABLET (FP) PO SCH (09:06)
[2018-09-23] MEDS: PANTOPRAZOLE 40 MG TABLET (FP) PO SCH (09:06)
[2018-09-23] MEDS: LOSARTAN POTASSIUM 50 MG TABLET (FP) PO SCH ×2 (09:06→21:41)
[2018-09-23] MEDS: FUROSEMIDE 20 MG TABLET (FP) PO SCH (09:06)
[2018-09-23] MEDS: BRIMONIDINE TARTRATE 0.2% OPHTHALMIC 5 ML BOTTLE OU SCH ×2 (09:07→21:43)
[2018-09-23 11:54] LABS: URINE APPEARANCE SLCLOUDY; URINE BILIRUBIN NEGATIVE (<2.0 mg/dL); URINE COLOR YELLOW; URINE GLUCOSE (UA) NEGATIVE (NEGATIVE); URINE KETONE NEGATIVE (NEGATIVE); URINE LEUK ESTERASE NEGATIVE (NEGATIVE); URINE NITRITE NEGATIVE (NEGATIVE); URINE PROTEIN 1+ (NEGATIVE); URINE UROBILINOGEN NEGATIVE mg/dL (0.2-1.0)
[2018-09-23 12:02] LABS: EPI CELLS RARE /HPF (FEW); URINE BACTERIA RARE /hpf (NONE SEEN); URINE HYALINE CAST 3 /lpf; URINE MUCUS MANY
--- NOTE | 2018-09-23 13:39 | PN ---
Progress Note, Physician Chief Complaint: had some hemorrhoidal bleeding b/o watery diarrhea daughter at bedside INR 2 - Current Medication List Current Medications: Active Medications Atenolol (Tenormin -) 100 mg PO DAILY [facility] Last Admin: 09/23/18 09:06 Dose: 100 mg Atorvastatin Calcium (Lipitor -) 10 mg PO HS [facility] Last Admin: 09/22/18 21:22 Dose: 10 mg Brimonidine Tartrate (Alphagan 0.2% -) 1 drop OU BID [facility] Last Admin: 09/23/18 09:07 Dose: 1 drp Cholecalciferol (Vitamin D3 -) 1,000 unit PO DAILY [facility] Last Admin: 09/23/18 09:06 Dose: 1,000 unit Furosemide (Lasix -) 20 mg PO DAILY [facility] Last Admin: 09/23/18 09:06 Dose: 20 mg Latanoprost (Xalatan 0.005% Eye Drops -) 1 drop OU HS [facility] Last Admin: 09/22/18 21:21 Dose: 1 drop Levothyroxine Sodium (Synthroid -) 50 mcg PO MoWeFr@0700 [facility] Last Admin: 09/22/18 07:58 Dose: 50 mcg Losartan Potassium (Cozaar -) 50 mg PO BID [facility] Last Admin: 09/23/18 09:06 Dose: 50 mg Multivitamins/Minerals/Vitamin C (Tab-A-Vit -) 1 tab PO DAILY [facility] Last Admin: 09/23/18 09:06 Dose: 1 tab Non-Formulary Medication (Methenamine Hippurate) 2 gm PO BID [facility] Pantoprazole Sodium (Protonix -) 40 mg PO DAILY [facility] Last Admin: 09/23/18 09:06 Dose: 40 mg Polyethylene Glycol (Miralax (For Daily Use) -) 17 gm PO TID [facility] Stop: 09/24/18 21:59 Last Admin: 09/23/18 06:15 Dose: 17 grams Sotalol HCl (Betapace -) 80 mg PO BID [facility] Last Admin: 09/23/18 09:06 Dose: 80 mg Warfarin Sodium (Coumadin -) 2 mg PO DAILY@1800 [facility] Last Admin: 09/22/18 16:56 Dose: 2 mg - Objective Vital Signs: Vital Signs Temperature 97.2 F L 09/23/18 10:22 Pulse Rate 78 09/23/18 10:22 Respiratory Rate 16 09/23/18 10:22 Blood Pressure 133/84 09/23/18 10:22 O2 Sat by Pulse Oximetry (%) 96 09/23/18 10:23 Constitutional: Yes: No Distress, Calm Eyes: Yes: Conjunctiva Clear HENT: Yes: Atraumatic Neck: Yes: Supple Cardiovascular: Yes: Regular Rate and Rhythm Respiratory: Yes: CTA Bilaterally Gastrointestinal: Yes: Soft. No: Distention Genitourinary: No: CVA Tenderness - Left, CVA Tenderness - Right Musculoskeletal: No: Joint Stiffness, Joint Swelling Extremities: No: Cold, Cool, Cyanosis Edema: No Integumentary: No: Rash, Venous Stasis Changes Neurological: Yes: WNL, Alert, Oriented ...Motor Strength: WNL Psychiatric: Yes: WNL, Alert, Oriented. No: Agitated, Suicidal Ideation Labs: CBC, BMP 09/21/18 16:42 09/21/18 16:08 INR, PTT INR 2.98 (0.83-1.09) H 09/22/18 06:30 - ....Imaging Other: Report Reviewed Assessment/Plan The patient is a 88 year old female with a significant past medical history of CBD stone s/p ERCP s/p stent placement, AFib (on Coumadin), HTN, HLD, CAD s/p stents and pacemaker, hypothyroidism, diverticulitis, and recurrent UTIs who presents to the ED with complaints of intractable diarrhea abdominal pain for few days after finishing po ATB for UTI recently. Recent abdomen CT c/w moderate SBO but clinically no obstruction. Repeat CT no SBO. R/o CDiff colitis ; was on po vanco with modest improvement. GI and surgery f/u CDiff negative DC vanco for now f/u labs; d/w pt and staff
[2018-09-23] MEDS: WARFARIN NA 2 MG TABLET (UD) PO SCH (17:23)
[2018-09-23] MEDS: BENZOCAINE 28 GM HEMORRHOIDAL OINTMENT PR PRN (17:24)
[2018-09-23] MEDS: LATANOPROST 0.005% OPHTH SOLN 2.5ML BOTTLE OU SCH (21:41)
[2018-09-23] MEDS: ATORVASTATIN CA 10 MG TABLET (FP) PO SCH (21:41)
[2018-09-24] MEDS: POLYETHYLENE GLYCOL 3350 119 GM BTL PO SCH ×2 (06:26→14:42)
[2018-09-24 07:31] LABS: INR 1.97 (0.83-1.09); PROTHROMBIN TIME (PATIENT) 23.4 SEC (9.7-13.0)
--- NOTE | 2018-09-24 08:50 | DS ---
Physical Examination Vital Signs: Vital Signs Temperature 98.3 F 09/24/18 06:00 Pulse Rate 65 09/24/18 06:00 Respiratory Rate 18 09/24/18 06:00 Blood Pressure 125/72 09/24/18 06:00 O2 Sat by Pulse Oximetry (%) 96 09/23/18 21:00 Findings/Remarks: admitted with intractable diarrhea had 15 x episodes yesterday today large BM then diarrhea slowed down; DC home if continues to improve; pt lives alone and she is afraid to go home alone and have "accidents" Constitutional: Yes: No Distress, Calm Eyes: Yes: Conjunctiva Clear HENT: Yes: Atraumatic Neck: Yes: Supple Cardiovascular: Yes: Regular Rate and Rhythm Respiratory: Yes: CTA Bilaterally Gastrointestinal: Yes: Soft. No: Distention Renal/: No: CVA Tenderness - Left, CVA Tenderness - Right, Hematuria Musculoskeletal: No: Joint Stiffness, Joint Swelling Extremities: No: Cold, Cool, Cyanosis Edema: No Integumentary: No: Rash, Venous Stasis Changes Neurological: Yes: WNL, Alert, Oriented ...Motor Strength: WNL Psychiatric: Yes: WNL, Alert, Oriented. No: Agitated Labs: CBC, BMP 09/21/18 16:42 09/21/18 16:08 Discharge Summary Reason For Visit: DIARRHEA Current Active Problems Diarrhea (Acute) Procedures: Principal: admitted with intractbale diarrhea and partial SBO; presumed impaction Other Procedures: seen by GI and surgery; tx empirically with po vanco; CDiff negative so vanco DCd. repeat abdomen CT scan showed SBO resolved; treated with miralax; improved. Hospital Course: improved with above; DC home and f/u with PCP GI and cardiology as advised. Miralax po daily. Condition: Stable - Instructions Referrals: Jacque Richardson [Staff Physician] - Minh Caputo MD [Staff Physician] - Lance Mccord MD [Staff Physician] - Disposition: [facility]/HOME HEALTH CARE - Home Medications Comprehensive Discharge Medication List: Ambulatory Orders Simvastatin 20 mg PO DAILY 12/16/16 Methenamine Hippurate [Hiprex [Nf] -] 2 gm PO BID 03/24/17 Levothyroxine [Synthroid -] 50 mcg PO MoWeFr@0700 02/23/18 Brimonidine Tartrate [Alphagan 0.2% -] 1 drop OU BID drops 03/10/18 Sotalol HCl [Betapace -] 80 mg PO BID tablet 03/10/18 Furosemide [Lasix -] 20 mg PO DAILY tablet 03/17/18 Atenolol [Tenormin -] 100 mg PO DAILY 05/25/18 Cholecalciferol (Vitamin D3) [Vitamin D -] 1,000 unit PO DAILY 05/25/18 Latanoprost 0.005% Eye Drops [Xalatan 0.005% Eye Drops -] 1 drop HS 05/25/18 Losartan Potassium [Cozaar -] 50 mg PO BID 05/25/18 Multivitamin with Iron [Multivitamins with Iron] 1 tab PO DAILY 05/25/18 Pantoprazole Sodium 40 mg PO DAILY 05/25/18 Warfarin Na [Coumadin -] 2 mg PO DAILY@1800 #0 tablet 05/26/18
[2018-09-24] MEDS ORDERED: PT OWN MED DRAWER 7, Y5N ONE ×2 (10:38→21:02)
[2018-09-24] MEDS: PANTOPRAZOLE 40 MG TABLET (FP) PO SCH (11:04)
[2018-09-24] MEDS: CHOLECALCIFEROL (VITAMIN D3) 1,000 UNIT TABLET (FP) PO SCH (11:04)
[2018-09-24] MEDS: SOTALOL HCL 80 MG TABLET (FP) PO SCH ×2 (11:04→21:22)
[2018-09-24] MEDS: FUROSEMIDE 20 MG TABLET (FP) PO SCH (11:04)
[2018-09-24] MEDS: LOSARTAN POTASSIUM 50 MG TABLET (FP) PO SCH ×2 (11:04→21:22)
[2018-09-24] MEDS: MULTIVITAMINS (DAILY MVI) TABLET (FP) PO SCH (11:04)
[2018-09-24] MEDS: ATENOLOL 50 MG TABLET (FP) PO SCH (11:04)
[2018-09-24] MEDS: BRIMONIDINE TARTRATE 0.2% OPHTHALMIC 5 ML BOTTLE OU SCH ×2 (11:05→21:22)
[2018-09-24] MEDS: BENZOCAINE 28 GM HEMORRHOIDAL OINTMENT PR PRN (11:07)
[2018-09-24] MEDS: WARFARIN NA 2 MG TABLET (UD) PO SCH (17:55)
[2018-09-24] MEDS: ATORVASTATIN CA 10 MG TABLET (FP) PO SCH (21:22)
[2018-09-24] MEDS: LATANOPROST 0.005% OPHTH SOLN 2.5ML BOTTLE OU SCH (21:22)
[2018-09-25] MEDS: LEVOTHYROXINE NA 50 MCG TABLET (FP) PO SCH (06:14)
--- NOTE | 2018-09-25 09:39 | PN ---
Progress Note, Physician Chief Complaint: less diarrhea but still watery stools and incontinence, no bleed afraid to go home until symptomatically better, lives alone, does not want to have GI accidents in the house pt did not take miralax at all for 24H - Current Medication List Current Medications: Active Medications Atenolol (Tenormin -) 100 mg PO DAILY [facility] Last Admin: 09/24/18 11:04 Dose: 100 mg Atorvastatin Calcium (Lipitor -) 10 mg PO HS [facility]S [facility] Last Admin: 09/24/18 21:22 Dose: 10 mg Benzocaine (Americaine Ointment -) 1 applic AR Q8H PRN PRN Reason: PAIN Last Admin: 09/24/18 11:07 Dose: 1 applic Brimonidine Tartrate (Alphagan 0.2% -) 1 drop OU BID [facility] Last Admin: 09/24/18 21:22 Dose: 1 drp Cholecalciferol (Vitamin D3 -) 1,000 unit PO DAILY [facility] Last Admin: 09/24/18 11:04 Dose: 1,000 unit Furosemide (Lasix -) 20 mg PO DAILY [facility] Last Admin: 09/24/18 11:04 Dose: 20 mg Latanoprost (Xalatan 0.005% Eye Drops -) 1 drop OU HS [facility] Last Admin: 09/24/18 21:22 Dose: 1 drop Levothyroxine Sodium (Synthroid -) 50 mcg PO MoWeFr@0700 [facility] 234 [facility] Last Admin: 09/25/18 06:14 Dose: 50 mcg Losartan Potassium (Cozaar -) 50 mg PO BID [facility] Last Admin: 09/24/18 21:22 Dose: 50 mg Multivitamins/Minerals/Vitamin C (Tab-A-Vit -) 1 tab PO DAILY [facility] Last Admin: 09/24/18 11:04 Dose: 1 tab Non-Formulary Medication (Methenamine Hippurate) 2 gm PO BID [facility] Pantoprazole Sodium (Protonix -) 40 mg PO DAILY [facility] Last Admin: 09/24/18 11:04 Dose: 40 mg Sotalol HCl (Betapace -) 80 mg PO BID [facility] Last Admin: 09/24/18 21:22 Dose: 80 mg Warfarin Sodium (Coumadin -) 2 mg PO DAILY@1800 [facility] 234 [facility]S [facility] Last Admin: 09/24/18 17:55 Dose: 2 mg - Objective Vital Signs: Vital Signs Temperature 97.8 F 09/25/18 06:00 Pulse Rate 68 09/25/18 06:00 Respiratory Rate 18 09/25/18 06:00 Blood Pressure 133/75 09/25/18 06:00 O2 Sat by Pulse Oximetry (%) 100 09/24/18 22:00 Constitutional: Yes: No Distress, Calm Eyes: Yes: Conjunctiva Clear HENT: Yes: Atraumatic Neck: Yes: Supple Cardiovascular: Yes: Regular Rate and Rhythm Respiratory: Yes: CTA Bilaterally Gastrointestinal: Yes: Soft. No: Distention Genitourinary: No: CVA Tenderness - Left, CVA Tenderness - Right, Hematuria Musculoskeletal: No: Joint Stiffness, Joint Swelling Extremities: No: Cold, Cool, Cyanosis Edema: No Integumentary: No: Rash, Venous Stasis Changes Neurological: Yes: WNL, Alert, Oriented ...Motor Strength: WNL Psychiatric: Yes: WNL, Alert, Oriented. No: Agitated, Suicidal Ideation Labs: CBC, BMP 09/21/18 16:42 09/21/18 16:08 INR, PTT INR 1.97 (0.83-1.09) H 09/24/18 06:00 - ....Imaging Other: Report Reviewed Assessment/Plan The patient is a 88 year old female with a significant past medical history of CBD stone s/p ERCP s/p stent placement, AFib (on Coumadin), HTN, HLD, CAD s/p stents and pacemaker, hypothyroidism, diverticulitis, and recurrent UTIs who presents to the ED with complaints of intractable diarrhea abdominal pain for few days after finishing po ATB for UTI recently. Recent abdomen CT c/w moderate SBO but clinically no obstruction. Repeat CT no SBO. will retest for CDIff O/P, Cx/S stools GI f/u; CDiff negative f/u labs; d/w pt and staff
[2018-09-25] MEDS ORDERED: PT OWN MED DRAWER 7, Y5N ONE ×2 (10:33→20:59)
[2018-09-25] MEDS: FUROSEMIDE 20 MG TABLET (FP) PO SCH (10:50)
[2018-09-25] MEDS: BRIMONIDINE TARTRATE 0.2% OPHTHALMIC 5 ML BOTTLE OU SCH ×2 (10:50→21:14)
[2018-09-25] MEDS: LOSARTAN POTASSIUM 50 MG TABLET (FP) PO SCH ×2 (10:50→21:14)
[2018-09-25] MEDS: ATENOLOL 50 MG TABLET (FP) PO SCH (10:50)
[2018-09-25] MEDS: MULTIVITAMINS (DAILY MVI) TABLET (FP) PO SCH (10:50)
[2018-09-25] MEDS: SOTALOL HCL 80 MG TABLET (FP) PO SCH ×2 (10:50→21:14)
[2018-09-25] MEDS: PANTOPRAZOLE 40 MG TABLET (FP) PO SCH (10:50)
[2018-09-25] MEDS: CHOLECALCIFEROL (VITAMIN D3) 1,000 UNIT TABLET (FP) PO SCH (10:51)
--- NOTE | 2018-09-25 12:26 | PN ---
GI Progress Note Subjective: GI NOte: Had 15 BMs on 09/23 but just 2 yesterday. Refused Miralax on the weekend. Had another loose BM today. C diff is negative - Objective Vital Signs: Vital Signs Temperature 97.3 F L 09/25/18 09:00 Pulse Rate 74 09/25/18 09:00 Respiratory Rate 20 09/25/18 09:00 Blood Pressure 142/90 09/25/18 09:00 O2 Sat by Pulse Oximetry (%) 100 09/24/18 22:00 Constitutional: Calm ...Auscultate: Yes: Normoactive Bowel Sounds ...Palpate: Yes: Soft, Other (nontender) Labs: CBC, BMP 09/21/18 16:42 09/21/18 16:08 INR, PTT INR 1.97 (0.83-1.09) H 09/24/18 06:00 Assessment/Plan If diarrhea perists I have advised Chyna to have a Golytely lavage tomorrow. Will screen stool for other pathogens Problem List - Problems (1) Constipation Code(s): K59.00 - CONSTIPATION, UNSPECIFIED Qualifiers: Constipation type: unspecified constipation type Qualified Code(s): K59.00 - Constipation, unspecified (2) Abdominal pain Code(s): R10.9 - UNSPECIFIED ABDOMINAL PAIN Qualifiers: (3) Fecal impaction of colon Code(s): K56.41 - FECAL IMPACTION
[2018-09-25] MEDS: WARFARIN NA 2 MG TABLET (UD) PO SCH (17:43)
[2018-09-25 19:51] VITALS: BMI 22.9
[2018-09-25] MEDS: ATORVASTATIN CA 10 MG TABLET (FP) PO SCH (21:14)
[2018-09-25] MEDS: LATANOPROST 0.005% OPHTH SOLN 2.5ML BOTTLE OU SCH (21:14)
--- NOTE | 2018-09-26 08:36 | PN ---
Progress Note, Physician Chief Complaint: feels better; less diarrhea no blood repeat stools pending - Current Medication List Current Medications: Active Medications Atenolol (Tenormin -) 100 mg PO DAILY [facility] Last Admin: 09/25/18 10:50 Dose: 100 mg Atorvastatin Calcium (Lipitor -) 10 mg PO HS [facility] Last Admin: 09/25/18 21:14 Dose: 10 mg Benzocaine (Americaine Ointment -) 1 applic MS Q8H PRN PRN Reason: PAIN Last Admin: 09/24/18 11:07 Dose: 1 applic Brimonidine Tartrate (Alphagan 0.2% -) 1 drop OU BID [facility] Last Admin: 09/25/18 21:14 Dose: 1 drp Cholecalciferol (Vitamin D3 -) 1,000 unit PO DAILY [facility] Last Admin: 09/25/18 10:51 Dose: 1,000 unit Furosemide (Lasix -) 20 mg PO DAILY [facility] Last Admin: 09/25/18 10:50 Dose: 20 mg Latanoprost (Xalatan 0.005% Eye Drops -) 1 drop OU [facility] Last Admin: 09/25/18 21:14 Dose: 1 drop Levothyroxine Sodium (Synthroid -) 50 mcg PO MoWeFr@0700 [facility] Last Admin: 09/25/18 06:14 Dose: 50 mcg Losartan Potassium (Cozaar -) 50 mg PO BID [facility] Last Admin: 09/25/18 21:14 Dose: 50 mg Multivitamins/Minerals/Vitamin C (Tab-A-Vit -) 1 tab PO DAILY [facility] Last Admin: 09/25/18 10:50 Dose: 1 tab Non-Formulary Medication (Methenamine Hippurate) 2 gm PO BID [facility] Pantoprazole Sodium (Protonix -) 40 mg PO DAILY [facility] Last Admin: 09/25/18 10:50 Dose: 40 mg Sotalol HCl (Betapace -) 80 mg PO BID [facility] Last Admin: 09/25/18 21:14 Dose: 80 mg Warfarin Sodium (Coumadin -) 2 mg PO DAILY@1800 [facility] Last Admin: 09/25/18 17:43 Dose: 2 mg - Objective Vital Signs: Vital Signs Temperature 98.2 F 09/26/18 05:44 Pulse Rate 74 09/26/18 05:44 Respiratory Rate 20 09/26/18 05:44 Blood Pressure 144/90 09/26/18 05:44 O2 Sat by Pulse Oximetry (%) 100 09/24/18 22:00 Constitutional: Yes: No Distress Eyes: Yes: Conjunctiva Clear HENT: Yes: Atraumatic Neck: Yes: Supple Cardiovascular: Yes: Regular Rate and Rhythm Respiratory: Yes: CTA Bilaterally Gastrointestinal: Yes: Soft. No: Distention Genitourinary: No: CVA Tenderness - Left, CVA Tenderness - Right Musculoskeletal: No: Joint Stiffness, Joint Swelling Extremities: No: Cold, Cool, Cyanosis Edema: No Integumentary: No: Rash, Venous Stasis Changes Neurological: Yes: WNL, Alert, Oriented ...Motor Strength: WNL Psychiatric: Yes: WNL, Alert, Oriented. No: Agitated, Suicidal Ideation Labs: CBC, BMP 09/21/18 16:42 09/21/18 16:08 INR, PTT INR 1.97 (0.83-1.09) H 09/24/18 06:00 - ....Imaging Other: Report Reviewed Assessment/Plan The patient is a 88 year old female with a significant past medical history of CBD stone s/p ERCP s/p stent placement, AFib (on Coumadin), HTN, HLD, CAD s/p stents and pacemaker, hypothyroidism, diverticulitis, and recurrent UTIs who presents to the ED with complaints of intractable diarrhea abdominal pain for few days after finishing po ATB for UTI recently. Recent abdomen CT c/w moderate SBO but clinically no obstruction. Repeat CT no SBO. will retest for CDIff O/P, Cx/S stools GI f/u; ambulate CDiff negative f/u labs; d/w pt and staff
[2018-09-26] MEDS: SOTALOL HCL 80 MG TABLET (FP) PO SCH ×2 (10:17→21:38)
[2018-09-26] MEDS: ATENOLOL 50 MG TABLET (FP) PO SCH (10:17)
[2018-09-26] MEDS: LOSARTAN POTASSIUM 50 MG TABLET (FP) PO SCH ×2 (10:17→21:38)
[2018-09-26] MEDS: FUROSEMIDE 20 MG TABLET (FP) PO SCH (10:17)
[2018-09-26] MEDS: MULTIVITAMINS (DAILY MVI) TABLET (FP) PO SCH (10:17)
[2018-09-26] MEDS: PANTOPRAZOLE 40 MG TABLET (FP) PO SCH (10:17)
[2018-09-26] MEDS: CHOLECALCIFEROL (VITAMIN D3) 1,000 UNIT TABLET (FP) PO SCH (10:17)
[2018-09-26] MEDS: BRIMONIDINE TARTRATE 0.2% OPHTHALMIC 5 ML BOTTLE OU SCH ×2 (10:46→21:38)
[2018-09-26] MEDS ORDERED: PT OWN MED DRAWER 7, Y5N ONE ×2 (10:54→20:36)
[2018-09-26] MEDS: WARFARIN NA 2 MG TABLET (UD) PO SCH (17:33)
--- NOTE | 2018-09-26 19:35 | PN ---
GI Progress Note Subjective: GI NOte: Had a formed BM tonight and feels that her diarrhea is resolved. No abdominal pain. Eating well, - Objective Vital Signs: Vital Signs Temperature 98.2 F 09/26/18 09:00 Pulse Rate 64 09/26/18 09:00 Respiratory Rate 20 09/26/18 09:00 Blood Pressure 130/75 09/26/18 09:00 O2 Sat by Pulse Oximetry (%) 100 09/24/18 22:00 Constitutional: Calm Cardiovascular: Yes: Regular Rate and Rhythm ...Auscultate: Yes: Normoactive Bowel Sounds ...Palpate: Yes: Soft, Other (nontender) Labs: CBC, BMP 09/21/18 16:42 09/21/18 16:08 INR, PTT INR 1.97 (0.83-1.09) H 09/24/18 06:00 Assessment/Plan Resolved diarrhea, No need for Golytely lavage. No GI objections to discharge tomorrow . Instructed to alternate Miralax between daily on odd days to BID on even days. Problem List - Problems (1) Constipation Code(s): K59.00 - CONSTIPATION, UNSPECIFIED Qualifiers: Constipation type: unspecified constipation type Qualified Code(s): K59.00 - Constipation, unspecified (2) Abdominal pain Code(s): R10.9 - UNSPECIFIED ABDOMINAL PAIN Qualifiers: (3) Fecal impaction of colon Code(s): K56.41 - FECAL IMPACTION
[2018-09-26] MEDS: ATORVASTATIN CA 10 MG TABLET (FP) PO SCH (21:38)
[2018-09-26] MEDS: LATANOPROST 0.005% OPHTH SOLN 2.5ML BOTTLE OU SCH (21:39)
[2018-09-27 05:52] VITALS: TEMP 97.9
[2018-09-27] MEDS: LEVOTHYROXINE NA 50 MCG TABLET (FP) PO SCH (06:03)
--- NOTE | 2018-09-27 07:36 | PN ---
Progress Note, Physician Chief Complaint: feels better has formed stools repeat stools negative for CDiff O/P C/S see DC summary 09/24 said she is also taking norvasc 5 mg/day started recently by dr Salmon cardio; to restart at home f/u in office in 1 week - Current Medication List Current Medications: Active Medications Atenolol (Tenormin -) 100 mg PO DAILY [facility] Last Admin: 09/26/18 10:17 Dose: 100 mg Atorvastatin Calcium (Lipitor -) 10 mg PO HS [facility] Last Admin: 09/26/18 21:38 Dose: 10 mg Benzocaine (Americaine Ointment -) [address] Q8H PRN PRN Reason: PAIN Last Admin: 09/24/18 11:07 Dose: 1 applic Brimonidine Tartrate (Alphagan 0.2% -) 1 drop OU BID [facility] Last Admin: 09/26/18 21:38 Dose: 1 drp Cholecalciferol (Vitamin D3 -) 1,000 unit PO DAILY [facility] Last Admin: 09/26/18 10:17 Dose: 1,000 unit Furosemide (Lasix -) 20 mg PO DAILY [facility] Last Admin: 09/26/18 10:17 Dose: 20 mg Latanoprost (Xalatan 0.005% Eye Drops -) 1 drop OU HS [facility] Last Admin: 09/26/18 21:39 Dose: 1 drop Levothyroxine Sodium (Synthroid -) 50 mcg PO MoWeFr@0700 [facility] Last Admin: 09/27/18 06:03 Dose: 50 mcg Losartan Potassium (Cozaar -) 50 mg PO BID [facility] Last Admin: 09/26/18 21:38 Dose: 50 mg Multivitamins/Minerals/Vitamin C (Tab-A-Vit -) 1 tab PO DAILY [facility] Last Admin: 09/26/18 10:17 Dose: 1 tab Non-Formulary Medication (Methenamine Hippurate) 2 gm PO BID [facility] Pantoprazole Sodium (Protonix -) 40 mg PO DAILY [facility] Last Admin: 09/26/18 10:17 Dose: 40 mg Sotalol HCl (Betapace -) 80 mg PO BID [facility] Last Admin: 09/26/18 21:38 Dose: 80 mg Warfarin Sodium (Coumadin -) 2 mg PO DAILY@1800 [facility] Last Admin: 09/26/18 17:33 Dose: 2 mg - Objective Vital Signs: Vital Signs Temperature 97.9 F 09/27/18 05:51 Pulse Rate 74 09/27/18 05:51 Respiratory Rate 20 09/27/18 05:51 Blood Pressure 122/62 09/27/18 05:51 O2 Sat by Pulse Oximetry (%) 100 09/24/18 22:00 Constitutional: Yes: No Distress, Calm Eyes: Yes: Conjunctiva Clear HENT: Yes: Atraumatic Neck: Yes: Supple Cardiovascular: Yes: Regular Rate and Rhythm Respiratory: Yes: CTA Bilaterally Gastrointestinal: Yes: Soft. No: Distention Genitourinary: No: CVA Tenderness - Left, CVA Tenderness - Right, Hematuria Musculoskeletal: No: Joint Stiffness, Joint Swelling Extremities: No: Cold, Cool, Cyanosis Edema: No Integumentary: No: Rash, Venous Stasis Changes Neurological: Yes: WNL, Alert, Oriented ...Motor Strength: WNL Psychiatric: Yes: WNL, Alert, Oriented. No: Agitated, Suicidal Ideation Labs: CBC, BMP 09/21/18 16:42 09/21/18 16:08 INR, PTT INR 1.97 (0.83-1.09) H 09/24/18 06:00 - ....Imaging Other: Report Reviewed Assessment/Plan The patient is a 88 year old female with a significant past medical history of CBD stone s/p ERCP s/p stent placement, AFib (on Coumadin), HTN, HLD, CAD s/p stents and pacemaker, hypothyroidism, diverticulitis, and recurrent UTIs who presents to the ED with complaints of intractable diarrhea abdominal pain for few days after finishing po ATB for UTI recently. Recent abdomen CT c/w moderate SBO but clinically no obstruction. Repeat CT no SBO. CDIff O/P, Cx/S stools negative GI f/u; ambulate DC home f/u as advised daughter will pick her up today d/w pt and staff
[2018-09-27] MEDS ORDERED: PT OWN MED DRAWER 7, Y5N ONE (09:19)
[2018-09-27] MEDS: PANTOPRAZOLE 40 MG TABLET (FP) PO SCH (09:39)
[2018-09-27] MEDS: ATENOLOL 50 MG TABLET (FP) PO SCH (09:39)
[2018-09-27] MEDS: CHOLECALCIFEROL (VITAMIN D3) 1,000 UNIT TABLET (FP) PO SCH (09:40)
[2018-09-27] MEDS: SOTALOL HCL 80 MG TABLET (FP) PO SCH (09:40)
[2018-09-27] MEDS: LOSARTAN POTASSIUM 50 MG TABLET (FP) PO SCH (09:40)
[2018-09-27] MEDS: MULTIVITAMINS (DAILY MVI) TABLET (FP) PO SCH (09:40)
[2018-09-27] MEDS: FUROSEMIDE 20 MG TABLET (FP) PO SCH (09:40)
[2018-09-27] MEDS: BRIMONIDINE TARTRATE 0.2% OPHTHALMIC 5 ML BOTTLE OU SCH (09:40)
[2018-09-27 11:58] VITALS: BP 157/88; PULSE 67
== END 2018-09-27 13:29 | disposition home health service (06) | DRG 389 ==
LOC: JER 16:08 → JERBED 18:02 → J6S 09-22 13:15
PROVIDERS: ADMIT Internal Medicine; ATTEND Internal Medicine
DX: K56.41 Fecal impaction (principal); K56.600 Partial intestinal obstruction, unspecified as to cause; R19.7 Diarrhea, unspecified; I48.91 Unspecified atrial fibrillation; I25.10 Atherosclerotic heart disease of native coronary artery without angina pectoris; E78.5 Hyperlipidemia, unspecified; I10 Essential (primary) hypertension; R10.9 Unspecified abdominal pain; E03.9 Hypothyroidism, unspecified; H35.30 Unspecified macular degeneration; I27.20 Pulmonary hypertension, unspecified; I08.0 Rheumatic disorders of both mitral and aortic valves; K57.90 Diverticulosis of intestine, part unspecified, without perforation or abscess without bleeding; N31.9 Neuromuscular dysfunction of bladder, unspecified; M54.5 Low back pain; M48.02 Spinal stenosis, cervical region; Z79.01 Long term (current) use of anticoagulants; Z95.5 Presence of coronary angioplasty implant and graft; Z95.0 Presence of cardiac pacemaker
CPT/HCPCS: 36415; 74019-TC-FY; 74177-TC; 80053; 81003; 81015; 82656; 84586; 85025; 85610; 87045; 87046; 87177; 87205; 87209; 87324; 87449; 99284-25; Q9967

== ENCOUNTER 2018-11-08 12:39 | Inpatient (IN) | payer OTHER, MEDICARE ==
[2018-11-08 14:18] LABS: BASO % 0.6 % (0-2.0); EOS % 0.6 % (0-4.5); HEMATOCRIT 30.7 % (32.4-45.2); HEMOGLOBIN 9.9 GM/dL (10.7-15.3); LYMPH % 7.9 % (8-40); MCH 30.9 pg (25.7-33.7); MCHC 32.4 g/dl (32.0-36.0); MEAN CELL VOLUME 95.6 fl (80-96); MEAN PLT VOLUME 8.4 fl (7.5-11.1); MONO % 7.7 % (3.8-10.2); NEUT % 83.2 % (42.8-82.8); PLATELET COUNT 229 K/MM3 (134-434); RBC 3.21 M/mm3 (3.60-5.2); RDW 15.4 % (11.6-15.6); WHITE BLOOD COUNT 6.8 K/mm3 (4.0-10.0)
[2018-11-08 14:46] LABS: INR 1.1 (0.83-1.09)
[2018-11-08 14:49] LABS: ACTIVATED PTT 29.6 SECONDS (25.2-36.5)
[2018-11-08 14:54] LABS: ALBUMIN 2.8 g/dl (3.4-5.0); ALK PHOS 116 U/L (45-117); ANION GAP 10 MMOL/L (8-16); BILIRUBIN,TOTAL 0.5 mg/dL (0.2-1); BLOOD UREA NITROGEN 21 mg/dL (7-18); CALCIUM 8.4 mg/dL (8.5-10.1); CHLORIDE 100 mmol/L (98-107); CO2 21 mmol/L (21-32); CREATININE 1.2 mg/dL (0.55-1.3); GLUCOSE,RANDOM 93 mg/dL (74-106); MAGNESIUM 2.2 mg/dL (1.8-2.4); N-TERMINAL BNP 18033.7 pg/ml (5-450); PHOSPHOROUS 3.5 mg/dL (2.5-4.9); POTASSIUM 4.3 mmol/L (3.5-5.1); SGOT/AST 24 U/L (15-37); SGPT/ALT 28 U/L (13-61); SODIUM 132 mmol/L (136-145); TOT PROT 7.3 g/dl (6.4-8.2)
--- NOTE | 2018-11-08 14:58 | PDOC ---
History of Present Illness - General Chief Complaint: Weakness Stated Complaint: WEAKNESS Time Seen by Provider: 11/08/18 13:17 History Source: Patient Exam Limitations: No Limitations - History of Present Illness Initial Comments: 11/08/18 14:58 88 yo female pmh AFIB (on clopidogrel), HTN, HLD, CAD with stents presents to the ED from [employer] office for diarrhea, weakness and SOB. Of note, pt discharged yesterday from [facility] after a 14 day admission for cardiac stent placement with complication of arterial perforation. Pt had persistent AFIB while at [facility] and was told she would not be Cardioverted since she was not anticouagulated at the time. Lasix was discontinued and Amioderone begun. Pt states since this past Tuesday she has had non bloody diarrhea and weakness that has been persistent even at discharge yesterday. Pt states her [employer] wanted her admitted to Tele do to current complaints and regulate her AFIB. Past History - Past Medical History Allergies/Adverse Reactions: Allergies Allergy/AdvReac Type Severity Reaction Status Date / Time erythromycin base Allergy Unknown abdominal Verified 11/08/18 12:52 [Erythromycin Base] pain Home Medications: Ambulatory Orders Amiodarone HCl [Cordarone -] 200 mg PO DAILY 11/08/18 Aspirin 81 mg PO DAILY 11/08/18 Clopidogrel Bisulfate [Plavix] 75 mg PO DAILY 11/08/18 Furosemide [Lasix] 40 mg PO DAILY 11/08/18 Methenamine Hippurate [Hiprex [Nf] -] 1 gm PO BID 11/08/18 Metoprolol Succinate [Toprol Xl] 200 mg PO DAILY 11/08/18 Pantoprazole Sodium [Protonix] 40 mg PO DAILY 11/08/18 Simvastatin [Zocor -] 20 mg PO HS 11/08/18 Anemia: No Asthma: No Cancer: No Cardiac Disorders: Yes (PACEMAKER X 1, Stent Placement 10/31) CVA: No COPD: No CHF: No Dementia: No Diabetes: No GI Disorders: Yes (GALLSTONES EVEN THOUGH SHE HAD GALLBLADDER REMOVED) Disorders: Yes (BLADDER INFECTION) HTN: Yes Hypercholesterolemia: Yes Liver Disease: No Seizures: No Thyroid Disease: Yes (Hypothyroid) - Surgical History Abdominal Surgery: Yes (SLIT IN GALLBLADDDER DUCT, HEMMORHOID REMOVED) Appendectomy: Yes Cardiac Surgery: Yes (PACEMAKER X2 one for bladder) Cholecystectomy: Yes Lung Surgery: No Neurologic Surgery: No Orthopedic Surgery: No - Immunization History Immunization Up to Date: Yes - Suicide/Smoking/Psychosocial Hx Smoking Status: No Smoking History: Never smoked Have you smoked in the past 12 months: No Number of Cigarettes Smoked Daily: 0 Information on smoking cessation initiated: No Hx Alcohol Use: No Drug/Substance Use Hx: No Substance Use Type: None Hx Substance Use Treatment: No Review of Systems - Review of Systems Constitutional: No: Chills, Fever Respiratory: Yes: Shortness of Breath Cardiac (ROS): Yes: Edema. No: Chest Pain, Palpitations ABD/GI: Yes: Diarrhea (non bloody). No: Constipated, Nausea, Vomiting : No: Burning, Dysuria Musculoskeletal: No: Back Pain Neurological: Yes: Weakness (generalized). No: Headache, Numbness *Physical Exam - Vital Signs Last Vital Signs Temp Pulse Resp BP Pulse Ox 96 F L 110 H 16 109/78 100 11/08/18 12:49 11/08/18 12:49 11/08/18 12:49 11/08/18 12:49 11/08/18 14:01 - Physical Exam General Appearance: Yes: Nourished, Appropriately Dressed. No: Apparent Distress HEENT: positive: EOMI Respiratory/Chest: positive: Lungs Clear, Normal Breath Sounds Cardiovascular: positive: S1, S2, Edema (non pitting bilateral), Tachycardia, Irregular. negative: JVD, Murmur Vascular Pulses: Dorsalis-Pedis (R): 3+, Doralis-Pedis (L): 3+ Gastrointestinal/Abdominal: positive: Normal Bowel Sounds, Flat, Soft. negative : Pulsatile Mass, Distended, Guarding, Rebound, Tenderness Musculoskeletal: positive: Normal Inspection Extremity: positive: Normal Capillary Refill Integumentary: positive: Normal Color, Dry, Warm Neurologic: positive: Fully Oriented, Alert, Normal Mood/Affect, Normal Response Moderate Sedation - Procedure Monitoring Vital Signs: Procedure Monitoring Vital Signs Temperature 96 F L 11/08/18 12:49 Pulse Rate 110 H 11/08/18 12:49 Respiratory Rate 16 11/08/18 12:49 Blood Pressure 109/78 11/08/18 12:49 O2 Sat by Pulse Oximetry (%) 100 11/08/18 14:01 ED Treatment Course - LABORATORY CBC & Chemistry Diagram: 11/08/18 14:05 11/08/18 14:05 - ADDITIONAL ORDERS Additional order review: 11/08/18 14:05 RBC 3.21 L MCV 95.6 MCHC 32.4 RDW 15.4 MPV 8.4 D Neutrophils % 83.2 H Lymphocytes % 7.9 L D Monocytes % 7.7 Eosinophils % 0.6 D Basophils % 0.6 - RADIOLOGY Radiology Studies Ordered: Category Date Time Status ABDOMEN FLAT & UPRIGHT [RAD] Stat Radiology 11/08/18 13:52 Ordered Medical Decision Making - Medical Decision Making 11/08/18 17:59 88 yo female with AFIB and recent stent at [facility] presents for weakness and diarrhea also for admission to Tele as per Cardiology. DDX includes but is not limited to: weakness from fluid loss due to diarrhea, afib leading to weakness Vitals: Uncontrolled afib with Tachy otherwise vitals stable NAD AOX3 Dr. Willoughby spoke with ED regarding pt and confirms an admission to Tele Dr. Richardson PCP called for admission. 11/08/18 18:[address] Chester Richardson who agrees to have pt admitted to tele *DC/Admit/Observation/Transfer Diagnosis at time of Disposition: Afib Qualifiers: Atrial fibrillation type: persistent Qualified Code(s): I48.1 - Persistent atrial fibrillation - Discharge Dispostion Condition at time of disposition: Stable Decision to Admit order: Yes - Referrals - Patient Instructions - Post Discharge Activity
--- NOTE | 2018-11-08 16:11 | PDOC ---
Attending Attestation - Medical Decision Making 11/08/18 17:47 Dr. Richardson was paged at this time requesting a call back. 11/08/18 18:27 Dr. Richardson returned the call and the case was discussed with Dr. Pinto <KiaAdriana - Last Filed: 11/08/18 18:27> - Resident Resident Name: Naveed Pinto - ED Attending Attestation I have performed the following: I have examined & evaluated the patient, The case was reviewed & discussed with the resident, I agree w/resident's findings & plan, Exceptions are as noted - HPI HPI: 11/08/18 16:01 The patient is a 88 year old female with a significant past medical history of CBD stone s/p ERCP s/p stent placement, A-Fib (on plavix), HTN, HLD, CAD s/p stents and pacemaker, hypothyroidism, diverticulitis, and recurrent UTIs who presents to the ED sent from doctor's office for generalized weakness and SOB. Pt was recently admitted to [facility] for cardiac cath c/b perforation and percardial effusion and subsequent development of afib. Pt was discharged yesterday, at which time she felt well. However, yesterday evening pt began to complain of SOB and THAKKAR. Denies any chest pain. Denies increased leg swelling. The patient denies headache and dizziness. The patient denies fever, chills, nausea, vomit, diarrhea and constipation. The patient denies dysuria, frequency , urgency and hematuria. Allergies: NKDA - Physicial Exam PE: 11/08/18 16:12 "GENERAL: Awake, alert, and fully oriented, in no acute distress. HEAD: No signs of trauma EYES: PERRLA, EOMI, sclera anicteric, conjunctiva clear ENT: Auricles normal inspection, hearing grossly normal, nares patent, oropharynx clear without exudates. Moist mucosa NECK: Nontender, no stepoffs, Normal ROM, supple, no lymphadenopathy, JVD, or masses LUNGS: Breath sounds equal, clear to auscultation bilaterally. No wheezes, and no crackles HEART: irregular rate and rhythm, normal S1 and S2, no murmurs, rubs or gallops ABDOMEN: Soft, nontender, normoactive bowel sounds. No guarding, no rebound. No masses EXTREMITIES: Normal range of motion, no edema. No clubbing or cyanosis. No cords, erythema, or tenderness NEUROLOGICAL: Cranial nerves II through XII intact. 5/5 strength and sensation in all extremities, Normal speech, normal gait, normal cerebellar function SKIN: Warm, Dry, normal turgor, no rashes or lesions noted. - Critical Care Time Total Critical Care Time: 45 Critical Care Statement: The care of this patient involved high complexity decision making to prevent further life threatening deterioration of the patient 's condition and/or to evaluate & treat vital organ system(s) failure or risk of failure. - Medical Decision Making 11/08/18 16:12 88 F with SOB and THAKKAR. EKG shows afib with RVR, likely cause of pt's SOB. Will also evaluate for CHF and ACS, though EKG with no acute ischemia. Pt also complaining of diarrhea and abdominal pain. No distention on exam but will obtain XR to r/o obstruction given h/o SBO. - Labs, trop, BNP - CXR - Dr. Whittaker aware - Admit tele <Baron Evans - Last Filed: 11/11/18 22:17>
--- NOTE | 2018-11-08 16:45 | EKG ---
Test Reason : Blood Pressure : / mmHG Vent. Rate : 097 BPM Atrial Rate : 326 BPM P-R Int : 000 ms QRS Dur : 098 ms QT Int : 354 ms P-R-T Axes : 000 -20 089 degrees QTc Int : 449 ms ATRIAL FIBRILLATION ABNORMAL ECG WHEN COMPARED WITH ECG OF 12-MAR-2018 08:34, ATRIAL FIBRILLATION HAS REPLACED ELECTRONIC ATRIAL PACEMAKER NONSPECIFIC T WAVE ABNORMALITY NOW EVIDENT IN LATERAL LEADS Confirmed by TROY MONTIEL, EDMAR ([id number]) on 11/08/2018 4:44:43 PM Referred By: Confirmed By:EDMAR SIMMONS MD
[2018-11-08] MEDS ORDERED: PATIENT'S OWN MEDICATION (NON-FORMULARY) (Methenamine Hippurate 1 GM) PO SCH (22:00)
[2018-11-09] MEDS: ATORVASTATIN CA 10 MG TABLET (FP) PO SCH ×2 (00:08→21:05)
[2018-11-09 07:45] LABS: HEMATOCRIT 28.9 % (32.4-45.2); HEMOGLOBIN 9.5 GM/dL (10.7-15.3); MCH 31.3 pg (25.7-33.7); MCHC 32.9 g/dl (32.0-36.0); MEAN CELL VOLUME 95.2 fl (80-96); MEAN PLT VOLUME 8.7 fl (7.5-11.1); PLATELET COUNT 209 K/MM3 (134-434); RBC 3.03 M/mm3 (3.60-5.2); RDW 15.2 % (11.6-15.6); WHITE BLOOD COUNT 6.2 K/mm3 (4.0-10.0)
[2018-11-09 08:47] LABS: ALBUMIN 2.4 g/dl (3.4-5.0); ALK PHOS 135 U/L (45-117); ANION GAP 11 MMOL/L (8-16); BILIRUBIN,TOTAL 0.5 mg/dL (0.2-1); BLOOD UREA NITROGEN 25 mg/dL (7-18); CALCIUM 8.4 mg/dL (8.5-10.1); CHLORIDE 103 mmol/L (98-107); CO2 19 mmol/L (21-32); CREATININE 1.1 mg/dL (0.55-1.3); GLUCOSE,RANDOM 76 mg/dL (74-106); POTASSIUM 4.3 mmol/L (3.5-5.1); SGOT/AST 28 U/L (15-37); SGPT/ALT 29 U/L (13-61); SODIUM 134 mmol/L (136-145); TOT PROT 6.5 g/dl (6.4-8.2)
[2018-11-09] MEDS ORDERED: PT OWN MED DRAWER 7, Y5N ONE (09:35)
[2018-11-09] MEDS: ASPIRIN 81 MG CHEWABLE TABLETS PO SCH (09:41)
[2018-11-09] MEDS: CLOPIDOGREL BISULFATE 75 MG TABLET (FP) PO SCH (09:41)
[2018-11-09] MEDS: FUROSEMIDE 40 MG TABLET (FP) PO SCH (09:41)
[2018-11-09] MEDS: PANTOPRAZOLE 40 MG TABLET (FP) PO SCH (09:41)
[2018-11-09] MEDS ORDERED: AMIODARONE HCL 200 MG TABLET (FP) PO SCH (10:00)
--- NOTE | 2018-11-09 11:33 | CON.CARD ---
Consult Consult Specialty:: Cardiology Referred by:: Gabe Richardson MD Reason for Consultation:: Dyspnea - History of Present Illness Chief Complaint: Dyspnea History of Present Illness: 88-year-old female history of 2 vessel CAD s/p recent rotational atherectomy and AGUEDA of LAD c/b microperforation, pericarditis, diastolic dysfunction, severe aortic stenosis, hypertension, cardioinhibitory/carotid hypersensitivity s/p pacemaker, hyperlipidemia, persistent A.fib on Coumadin [id number]=5, hypothyroidisms/p appy, cholecystectomy and hysterectomy, diverticulosis/itis, GERD, CBD s/p ERCP, stent placement and stone retrieval, bladder stimulator for urinary frequency, fecal impaction presented diarrhea, generalized weakness, THAKKAR and LE edema without chest pain, palpitations, orthopnea, PND, near or true syncope. Diarrhea has since resolved, denies abd pain, nausea and emesis, sxs improved with diuresis, apparently diuretics were held post PCI. 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) Cardio/Vascular: Yes: AFIB, Aortic Stenosis (0.7cm), HTN, Hyperlipdemia, Mitral Insufficiency, Pulmonary Hypertension, Other (Episodes of vaso-depressive syncope, has PPM) Gastrointestinal: Yes: Diverticulitis (02/21), Diverticulosis, Hemorrhoids, Other (SBO in 10/26, ischemic colitis 10/26) Hepatobiliary: Yes: Cholelithiasis (s/pcholecsytectomy), Choledocholithiasis ( ERCP/sphincerotomy for CBD stone) Renal/: Yes: Neurogenic Bladder (had bladder stimulator placed) ...: No Infectious Disease: Yes: Herpes Zoster (2008) Musculoskeletal: Yes: Chronic low back pain, Osteoarthritis, Other (Spinal stenosis and C spine fracture.) Endocrine: Yes: Hypothyroidism Additional Medical History: Fibrocystic breast disease. Macular degeneration. Herpes Zoster 2008. Ischemic colitis and SBO 2012. Diverticulitis 02/21. C spine fracture. Spinal stenosis. 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 History of Recent Travel: No Home Medications - Allergies Allergies/Adverse Reactions: Allergies Allergy/AdvReac Type Severity Reaction Status Date / Time erythromycin base Allergy Unknown abdominal Verified 11/08/18 12:52 [Erythromycin Base] pain - Home Medications Home Medications: Ambulatory Orders Amiodarone HCl [Cordarone -] 200 mg PO DAILY 11/08/18 Aspirin 81 mg PO DAILY 11/08/18 Clopidogrel Bisulfate [Plavix] 75 mg PO DAILY 11/08/18 Furosemide [Lasix] 40 mg PO DAILY 11/08/18 Methenamine Hippurate [Hiprex [Nf] -] 1 gm PO BID 11/08/18 Metoprolol Succinate [Toprol Xl] 200 mg PO DAILY 11/08/18 Pantoprazole Sodium [Protonix] 40 mg PO DAILY 11/08/18 Simvastatin [Zocor -] 20 mg PO HS 11/08/18 Ascorbate Calcium [Vitamin C] 500 mg PO DAILY 11/09/18 Aspirin [ASA -] 81 mg PO DAILY 11/09/18 Brimonidine Tartrate/Timolol [Combigan Eye Drops] 10 ml OP BID 11/09/18 Colchicine 0.6 mg PO BID 11/09/18 Dorzolamide HCl [Trusopt] 10 ml OD BID 11/09/18 Furosemide [Lasix] 20 mg PO DAILY 11/09/18 Lactobacillus Acidophilus [Acidophilus] 1 each PO DAILY 11/09/18 Latanoprost 0.005% Eye Drops [Xalatan 0.005% Eye Drops -] 1 drop OU HS 11/09/18 Levothyroxine [Synthroid -] 75 mcg PO DAILY 11/09/18 Polyethylene Glycol 3350 [Miralax (For Daily Use) -] 17 gm PO DAILY 11/09/18 Family Disease History - Family Disease History Family Disease History: Diabetes: Brother (colon adenoma), Heart Disease: Father ( 76, H/O alcohol), Mother (,CKD), Brother, [place]: Son (brainneoplasm), Other: Father, Brother Review of Systems - Review of Systems Cardiovascular: reports: Edema, Shortness of Breath Gastrointestinal: reports: Diarrhea Vital Signs: Vital Signs Temperature 98.2 F 11/09/18 09:39 Pulse Rate 108 H 11/09/18 09:39 Respiratory Rate 18 11/09/18 09:39 Blood Pressure 124/87 11/09/18 09:39 O2 Sat by Pulse Oximetry (%) 97 11/09/18 09:00 Constitutional: Yes: No Distress, Calm, Thin Neck: Yes: Supple Respiratory: Yes: Regular, Diminished Gastrointestinal: Yes: Normal Bowel Sounds, Soft Cardiovascular: Yes: Pulse Irregular JVD: No Carotid Bruit: No Heart Sounds: Yes: S1, S2 Murmur: Yes: Systolic Murmur, Grade 3 Edema: Yes Edema: LLE: 1+, RLE: 1+ - Other Data Labs, Other Data: CBC, BMP 11/09/18 07:00 11/09/18 07:00 INR, PTT INR 1.10 (0.83-1.09) H 11/08/18 14:05 Troponin, BNP 11/08/18 11/09/18 14:05 00:30 Troponin I 0.05 0.04 B-Natriuretic Peptide 53709.7 H Troponin, BNP 11/08/18 11/09/18 14:05 00:30 Troponin I 0.05 0.04 B-Natriuretic Peptide 64148.7 H Afib @ 97 Echo: Report Reviewed Ejection Fraction %: LVEF > or = 40 % Imaging - Results X-ray: Report Reviewed (Possible pSBO) Problem List - Problems (1) S/P coronary artery stent placement Code(s): Z95.5 - PRESENCE OF CORONARY ANGIOPLASTY IMPLANT AND GRAFT (2) Atrial fibrillation Code(s): I48.91 - UNSPECIFIED ATRIAL FIBRILLATION Qualifiers: Atrial fibrillation type: persistent Qualified Code(s): I48.1 - Persistent atrial fibrillation (3) CHF exacerbation Code(s): I50.9 - HEART FAILURE, UNSPECIFIED Qualifiers: Heart failure type: diastolic Qualified Code(s): I50.33 - Acute on chronic diastolic (congestive) heart failure (4) Coronary artery disease Code(s): I25.10 - ATHSCL HEART DISEASE OF [place] CORONARY ARTERY W/O ANG PCTRS Qualifiers: Coronary Disease-Associated Artery/Lesion type: [place] artery [place] vs. transplanted heart: [place] heart Associated angina: without angina Qualified Code(s): I25.10 - Atherosclerotic heart disease of [place] coronary artery without angina pectoris (5) History of cardioversion Code(s): Z98.890 - OTHER SPECIFIED POSTPROCEDURAL STATES (6) History of pacemaker Code(s): Z95.0 - PRESENCE OF CARDIAC PACEMAKER (7) Hypertension Code(s): I10 - ESSENTIAL (PRIMARY) HYPERTENSION Qualifiers: Hypertension type: essential hypertension Qualified Code(s): I10 - Essential (primary) hypertension (8) Hyponatremia Code(s): E87.1 - HYPO-OSMOLALITY AND HYPONATREMIA (9) Hypothyroidism Code(s): E03.9 - HYPOTHYROIDISM, UNSPECIFIED Qualifiers: Hypothyroidism type: unspecified Qualified Code(s): E03.9 - Hypothyroidism , unspecified (10) Severe aortic stenosis Code(s): I35.0 - NONRHEUMATIC AORTIC (VALVE) STENOSIS Assessment/Plan Echo: 01/06/2018 cLVH with normal LV fxn. abnormal LV compliance, mild LAE, normal RV size and fxn, mod-severe MG 32 mmHgRVSP 40 mmHg, pacemaker lead R&LHc: 08/09/2018 2 vessel CAD severe MG 47.8 mmHg RUBY 0.77 cm^2 PAP 48/17 1. Acute on chronic class II NYHA classification LV failure related to diastolic LV dysfunction 2. Severe aortic valve stenosis 3. Persistent atrial fibrillation with RVR with subtherapeutic INR, h/o cardioversion 4. CAD s/p rotational atherectomy and AGUEDA LAD angina pectoris 5. Post coronary perforation pericarditis 6. 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 HTN/HCVD 8. Hyperlipidemia 9. Hypothyroidism 10. Acute on CKD 11. Fecal impaction 11. Retained stones post cholecystectomy with biliary duct dilatation post therapeutic ERCP/sphincterotomy and biliary stent 12. History of schatzki ring dilation 13. MGUS 14. Hyponatremia PLAN: 1. IV diuresis with monitor diuretic response, renal function and electrolytes, check chest xray 2. Repeat echo to assess pericardial effusion 3. Increase Amio 200 bid, ASA 81 qd, Plavix 75 qd, Toprol XL 200 qd, and Lasix 40 qd with close monitoring of renal function 4. Continue Lipitor 10 qhs, colchicine 0.6 bid, resume losartan 25 qd once renal fxn stabilizes 5. Anticoagulation held due to recent pericarditis and effusion 6. Further GI evaluation as outpatient then TAVR eval afterwards 7. Thank you for consultative opportunity f/u in office with Dr. Willoughby
[2018-11-09] MEDS ORDERED: FUROSEMIDE 40 MG/4 ML INJECTABLE VIAL IVPUSH ONE (14:00)
[2018-11-09 15:14] LABS: URINE APPEARANCE SLCLOUDY; URINE BILIRUBIN NEGATIVE (<2.0 mg/dL); URINE COLOR LTYELLOW; URINE GLUCOSE (UA) NEGATIVE (NEGATIVE); URINE KETONE NEGATIVE (NEGATIVE); URINE LEUK ESTERASE TRACE (NEGATIVE); URINE NITRITE POSITIVE (NEGATIVE); URINE PROTEIN NEGATIVE (NEGATIVE); URINE UROBILINOGEN NEGATIVE mg/dL (0.2-1.0)
[2018-11-09 15:49] LABS: EPI CELLS RARE /HPF (FEW); URINE BACTERIA MANY /hpf (NONE SEEN); URINE HYALINE CAST 55 /lpf; URINE MUCUS RARE
--- NOTE | 2018-11-09 15:50 | ECHO ---
Name: SHAUN KING Exam:Adult Echocardiogram Study Date: 11/09/2018 01:01 PM Age: 88 yrs Reason For Study: PCI PERFORATION Height: 65 in Weight: 142 lb BSA: 1.7 m2 MMode/2D Measurements & Calculations IVSd: 0.96 cm Ao root diam: 3.0 cm LVIDd: 4.7 cm LA dimension: 5.0 cm LVIDs: 3.2 cm ACS: 1.1 cm LVPWd: 1.1 cm EDV(Teich): 103.7 ml LVOT diam: 2.2 cm ESV(Teich): 42.0 ml LAV (MOD-bp): 155.0 ml RV S Home: 5.3 cm/sec Doppler Measurements & Calculations Ao V2 max: 315.7 cm/sec LV V1 max P.99 mmHg Ao max P.9 mmHg LV V1 mean P.53 mmHg Ao V2 mean: 236.9 cm/sec LV V1 max: 49.7 cm/sec Ao mean P.0 mmHg LV V1 mean: 33.2 cm/sec Ao V2 VTI: 57.0 cm LV V1 VTI: 8.3 cm RUBY(I,D): 0.55 cm2 RUBY(V,D): 0.59 cm2 MR max home: 579.1 cm/sec SV(LVOT): 31.2 ml MR max P.2 mmHg TR max home: 238.1 cm/sec PI end-d home: 169.7 cm/sec TR max P.1 mmHg Procedure A complete two-dimensional transthoracic echocardiogram was performed (2D, M-mode, Doppler and color flow Doppler). Left Ventricle There is mild concentric left ventricular hypertrophy. The left ventricular ejection fraction is norm al. Ejection Fraction = 55-60%. The left ventricular wall motion is normal. Right Ventricle The right ventricle is normal in size and function. There is a catheter in the right ventricle. Atria The left atrium is severely dilated. The right atrium is moderately dilated. There is a catheter/pace maker lead seen in the right atrium. The interatrial septum is intact with no evidence for an atrial septal defect. Mitral Valve There is moderate to severe mitral regurgitation. Tricuspid Valve There is moderate to severe tricuspid regurgitation. Right ventricular systolic pressure is normal. Aortic Valve Moderate valvular aortic stenosis. No aortic regurgitation is present. Pulmonic Valve Trace pulmonic valvular regurgitation. Great Vessels The aortic root is normal size. Moderately dilated inferior vena cava. Pericardium/Pleura Small pericardial effusion (<1cm). There are no echocardiographic indications of cardiac tamponade. Interpretation Summary There is mild concentric left ventricular hypertrophy. The left ventricular ejection fraction is normal. The right ventricle is normal in size and function. There is a catheter in the right ventricle. The left atrium is severely dilated. The right atrium is moderately dilated. There is a catheter/pacemaker lead seen in the right atrium. There is moderate to severe mitral regurgitation. There is moderate to severe tricuspid regurgitation. Moderate valvular aortic stenosis. Trace pulmonic valvular regurgitation. Moderately dilated inferior vena cava Small pericardial effusion (<1cm) MD Jeremy Brown 11/09/2018 03:50 PM
--- NOTE | 2018-11-09 17:19 | HP ---
Admitting History and Physical - Primary Care Physician PCP: Gabe Richardson - Admission Chief Complaint: Weakness, abd pain History of Present Illness: Pt with significant history of CAD, recent cardiac cath and artherectomy and Stent placement and microperforation and pericarditis , [facility]ed from [facility] ago, seen in f/u by own cardio yesterday; patient c/o worsening weakness; she was recommended ER visit for further evaluation. In ER pt also c/o abd pain evaluation. 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 Malik, ? 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 ) Infectious Disease: Yes: Herpes Zoster (2008) Musculoskeletal: Yes: Chronic low back pain, Osteoarthritis, Other (Spinal stenosis and C spine fracture.) Endocrine: Yes: Hypothyroidism - Past Surgical History Past Surgical History: Yes: Appendectomy, Cataract Removal, Cholecystectomy, Colonoscopy, Hysterectomy, Permanent Pacemaker, Tonsillectomy, Upper Endoscopy - Smoking History Smoking history: Never smoked Have you smoked in the past 12 months: No Aproximately how many cigarettes per day: 0 - Alcohol/Substance Use Hx Alcohol Use: No History of Substance Use: reports: None - Social History ADL: Independent 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 History of Recent Travel: No Home Medications - Allergies Allergies/Adverse Reactions: Allergies Allergy/AdvReac Type Severity Reaction Status Date / Time erythromycin base Allergy Unknown abdominal Verified 11/08/18 12:52 [Erythromycin Base] pain - Home Medications Home Medications: Ambulatory Orders Amiodarone HCl [Cordarone -] 200 mg PO DAILY 11/08/18 Aspirin 81 mg PO DAILY 11/08/18 Clopidogrel Bisulfate [Plavix] 75 mg PO DAILY 11/08/18 Furosemide [Lasix] 40 mg PO DAILY 11/08/18 Methenamine Hippurate [Hiprex [Nf] -] 1 gm PO BID 11/08/18 Metoprolol Succinate [Toprol Xl] 200 mg PO DAILY 11/08/18 Pantoprazole Sodium [Protonix] 40 mg PO DAILY 11/08/18 Simvastatin [Zocor -] 20 mg PO HS 11/08/18 Ascorbate Calcium [Vitamin C] 500 mg PO DAILY 11/09/18 Aspirin [ASA -] 81 mg PO DAILY 11/09/18 Brimonidine Tartrate/Timolol [Combigan Eye Drops] 10 ml OP BID 11/09/18 Colchicine 0.6 mg PO BID 11/09/18 Dorzolamide HCl [Trusopt] 10 ml OD BID 11/09/18 Furosemide [Lasix] 20 mg PO DAILY 11/09/18 Lactobacillus Acidophilus [Acidophilus] 1 each PO DAILY 11/09/18 Latanoprost 0.005% Eye Drops [Xalatan 0.005% Eye Drops -] 1 drop OU HS 11/09/18 Levothyroxine [Synthroid -] 75 mcg PO DAILY 11/09/18 Polyethylene Glycol 3350 [Miralax (For Daily Use) -] 17 gm PO DAILY 11/09/18 Family Disease History - Family Disease History Family Disease History: Diabetes: Brother (colon adenoma), Heart Disease: Father ( 76, H/O alcohol), Mother (,CKD), Brother, [place]: Son (brainneoplasm), Other: Father, Brother Review of Systems - Review of Systems Constitutional: denies: Chills, Fever Eyes: denies: Blurred Vision, Recent Change in Vision HENT: denies: Ear Discharge, Nasal Congestion, Throat Pain Neck: denies: Pain on Movement, Stiffness Cardiovascular: denies: Chest Pain, Edema, Palpitations Gastrointestinal: denies: Abdominal Pain, Diarrhea, Vomiting Genitourinary: denies: Burning, Discharge Musculoskeletal: denies: Back Pain, Muscle Cramps Integumentary: denies: Blister, Bruising, Eczema Neurological: denies: Change in LOC, Change in Speech, Numbness Endocrine: denies: Excessive Sweating, Intolerance to Cold Hematology/Lymphatic: denies: Easily Bruised, Excessive Bleeding Psychiatric: denies: Anxiety, Depression Physical Examination Vital Signs: Vital Signs Temperature 98.0 F 11/09/18 14:10 Pulse Rate 112 H 11/09/18 14:10 Respiratory Rate 16 11/09/18 14:10 Blood Pressure 112/81 11/09/18 14:10 O2 Sat by Pulse Oximetry (%) 97 11/09/18 09:00 Constitutional: Yes: No Distress, Calm Eyes: Yes: Conjunctiva Clear, EOM Intact, PERRL HENT: No: Hoarseness, Pharyngeal Erythema, Rhinnorhea Neck: Yes: Trachea Midline. No: Lymphadenopathy Cardiovascular: Yes: Regular Rate and Rhythm, S1, S2 Respiratory: Yes: Regular, CTA Bilaterally Gastrointestinal: Yes: Normal Bowel Sounds, Soft, Tenderness (mild, in LUQ and LLQ). No: Tenderness, Rebound ...Rectal Exam: Yes: Deferred Renal/: No: CVA Tenderness - Left, CVA Tenderness - Right Breast(s): Yes: Other (deffered) Musculoskeletal: No: Joint Stiffness, Joint Swelling Edema: No Neurological: Yes: Alert, Oriented, Other (motor and sensory exam is symmetric in UE/ LE/ face.) Psychiatric: Yes: Alert, Oriented Labs: CBC, BMP 11/09/18 07:00 11/09/18 07:00 Imaging - Results Chest X-ray: Report Reviewed X-ray: Report Reviewed Problem List - Problems (1) Weakness Code(s): R53.1 - WEAKNESS (2) Partial bowel obstruction Code(s): K56.600 - PARTIAL INTESTINAL OBSTRUCTION, UNSPECIFIED TO CAUSE (3) Coronary artery disease Code(s): I25.10 - ATHSCL HEART DISEASE OF [place] CORONARY ARTERY W/O ANG PCTRS Qualifiers: Coronary Disease-Associated Artery/Lesion type: [place] artery [place] vs. transplanted heart: [place] heart Associated angina: without angina Qualified Code(s): I25.10 - Atherosclerotic heart disease of [place] coronary artery without angina pectoris (4) CHF (congestive heart failure) Code(s): I50.9 - HEART FAILURE, UNSPECIFIED (5) Atrial fibrillation Code(s): I48.91 - UNSPECIFIED ATRIAL FIBRILLATION Qualifiers: Atrial fibrillation type: persistent Qualified Code(s): I48.1 - Persistent atrial fibrillation (6) S/P coronary artery stent placement Code(s): Z95.5 - PRESENCE OF CORONARY ANGIOPLASTY IMPLANT AND GRAFT (7) Severe aortic stenosis Code(s): I35.0 - NONRHEUMATIC AORTIC (VALVE) STENOSIS (8) Anemia Code(s): D64.9 - ANEMIA, UNSPECIFIED (9) History of pacemaker Code(s): Z95.0 - PRESENCE OF CARDIAC PACEMAKER (10) Hyperlipidemia Code(s): E78.5 - HYPERLIPIDEMIA, UNSPECIFIED Qualifiers: Hyperlipidemia type: pure hypercholesterolemia Qualified Code(s): E78.00 - Pure hypercholesterolemia, unspecified (11) Hypertension Code(s): I10 - ESSENTIAL (PRIMARY) HYPERTENSION Qualifiers: Hypertension type: essential hypertension Qualified Code(s): I10 - Essential (primary) hypertension (12) Hyponatremia Code(s): E87.1 - HYPO-OSMOLALITY AND HYPONATREMIA (13) Hypothyroidism Code(s): E03.9 - HYPOTHYROIDISM, UNSPECIFIED Qualifiers: Hypothyroidism type: unspecified Qualified Code(s): E03.9 - Hypothyroidism , unspecified (14) MGUS (monoclonal gammopathy of unknown significance) Code(s): D47.2 - MONOCLONAL GAMMOPATHY Assessment/Plan Admit to Telemetry. Serial CE Cardio consult Liquid diet GI consult AM labs Case was d/w pt's nurse.
[2018-11-09] MEDS: AMIODARONE HCL 200 MG TABLET (FP) PO SCH (21:05)
--- NOTE | 2018-11-09 21:23 | CON.GI ---
Consult Consult Specialty:: Gastroenterology Referred by:: Dr Richardson Reason for Consultation:: Diarrhea - History of Present Illness Chief Complaint: Weakness and diarrhea History of Present Illness: 88F was [place] [facility] [place]HAEL and underwent coronary stenting (AGUEDA) after a microperforation developed during an atherectomy of the LAD. She never got the anticipated TAVR. She was c/o diarrhea and weakness in Dr Willoughby's office prompting this admission . FUA siggested SBO but she denies any nausea or vomiting. Her diarrhea has resolved and she had a single formed BM today. I refer you to her recent GI consultations for multiple admisions for details. She was initially suspected to have an SBO and then diarrhea when I last saw her on 10/01/18 but it proved to be paradoxical diarrhea with a fecal impaction that resolved with Miralax. She had received an empiric course of Vanco for C diff before I saw her. She had an ERCP and stent and stone removal with me on 05/26/18 that we hoped would allow her to proceed with TAVR.She last had a colonoscopy oin 10/03 which was incomplete due to a tortuous sigmoid colon with severe diverticulosis and never wanted to undergo a repeat attempt. She had a Schatzki ring dilated in 12/01 and a hemorrhoidectomy in 03/30. She had ischemic colitis in 2012. 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: Other (macular degeneration) Cardio/Vascular: Yes: AFIB, Aortic Stenosis (0.7cm), CAD (recent 10/31 atherectomy with perforation, pericarditis & [place] [facility] [place] HTN, Hyperlipdemia, Mitral Insufficiency, Pulmonary Hypertension, Other (Episodes of vaso-depressive syncope, has PPM) Gastrointestinal: Yes: Constipation, Diverticulitis (02/21), Diverticulosis, Hemorrhoids, Other (SBO in 10/26, ischemic colitis 10/26) Hepatobiliary: Yes: Cholelithiasis (s/pcholecsytectomy), Choledocholithiasis ( ERCP/sphincerotomy for CBD stone) Renal/: Yes: Neurogenic Bladder (had bladder stimulator placed) ...: No Infectious Disease: Yes: Herpes Zoster (2008) Musculoskeletal: Yes: Chronic low back pain, Osteoarthritis, Other (Spinal stenosis and C spine fracture.) Endocrine: Yes: Hypothyroidism Additional Medical History: Fibrocystic breast disease. Macular degeneration. Herpes Zoster 2008. Ischemic colitis and SBO 2012. Diverticulitis 02/21. C spine fracture. Spinal stenosis. 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 Place of : [facility] History of Recent Travel: No Home Medications - Allergies Allergies/Adverse Reactions: Allergies Allergy/AdvReac Type Severity Reaction Status Date / Time erythromycin base Allergy Unknown abdominal Verified 11/08/18 12:52 [Erythromycin Base] pain - Home Medications Home Medications: Ambulatory Orders Amiodarone HCl [Cordarone -] 200 mg PO DAILY 11/08/18 Aspirin 81 mg PO DAILY 11/08/18 Clopidogrel Bisulfate [Plavix] 75 mg PO DAILY 11/08/18 Furosemide [Lasix] 40 mg PO DAILY 11/08/18 Methenamine Hippurate [Hiprex [Nf] -] 1 gm PO BID 11/08/18 Metoprolol Succinate [Toprol Xl] 200 mg PO DAILY 11/08/18 Pantoprazole Sodium [Protonix] 40 mg PO DAILY 11/08/18 Simvastatin [Zocor -] 20 mg PO HS 11/08/18 Ascorbate Calcium [Vitamin C] 500 mg PO DAILY 11/09/18 Aspirin [ASA -] 81 mg PO DAILY 11/09/18 Brimonidine Tartrate/Timolol [Combigan Eye Drops] 10 ml OP BID 11/09/18 Colchicine 0.6 mg PO BID 11/09/18 Dorzolamide HCl [Trusopt] 10 ml OD BID 11/09/18 Furosemide [Lasix] 20 mg PO DAILY 11/09/18 Lactobacillus Acidophilus [Acidophilus] 1 each PO DAILY 11/09/18 Latanoprost 0.005% Eye Drops [Xalatan 0.005% Eye Drops -] 1 drop OU HS 11/09/18 Levothyroxine [Synthroid -] 75 mcg PO DAILY 11/09/18 Polyethylene Glycol 3350 [Miralax (For Daily Use) -] 17 gm PO DAILY 11/09/18 Family Disease History - Family Disease History Family Disease History: Diabetes: Brother (colon adenoma), Heart Disease: Father ( 76, H/O alcohol), Mother (,CKD), Brother, CA: Son (brainneoplasm), Other: Father, Brother Review of Systems - Review of Systems Constitutional: reports: Lethargy, Unintentional Wgt. Loss, Weakness HENT: reports: No Symptoms Neck: reports: No Symptoms Cardiovascular: reports: Palpitations, Shortness of Breath Respiratory: reports: Exercise Intolerance Gastrointestinal: reports: Bloating, Constipation, Diarrhea Musculoskeletal: reports: Back Pain Physical Exam-GI Vital Signs: Vital Signs Temperature 97.6 F 11/09/18 18:38 Pulse Rate 95 H 11/09/18 18:38 Respiratory Rate 18 11/09/18 18:38 Blood Pressure 108/68 11/09/18 18:38 O2 Sat by Pulse Oximetry (%) 97 11/09/18 09:00 CBC,CMP WBC 6.2 K/mm3 (4.0-10.0) 11/09/18 07:00 RBC 3.03 M/mm3 (3.60-5.2) L 11/09/18 07:00 Hgb 9.5 GM/dL (10.7-15.3) L 11/09/18 07:00 Hct 28.9 % (32.4-45.2) L 11/09/18 07:00 MCV 95.2 fl (80-96) 11/09/18 07:00 MCH 31.3 pg (25.7-33.7) 11/09/18 07:00 MCHC 32.9 g/dl (32.0-36.0) 11/09/18 07:00 RDW 15.2 % (11.6-15.6) 11/09/18 07:00 Plt Count 209 K/MM3 (134-434) 11/09/18 07:00 MPV 8.7 fl (7.5-11.1) 11/09/18 07:00 Absolute Neuts (auto) 5.7 K/mm3 (1.5-8.0) 11/08/18 14:05 Neutrophils % 83.2 % (42.8-82.8) H 11/08/18 14:05 Lymphocytes % 7.9 % (8-40) L D 11/08/18 14:05 Monocytes % 7.7 % (3.8-10.2) 11/08/18 14:05 Eosinophils % 0.6 % (0-4.5) D 11/08/18 14:05 Basophils % 0.6 % (0-2.0) 11/08/18 14:05 Nucleated RBC % 0 % (0-0) 11/08/18 14:05 Sodium 134 mmol/L (136-145) L 11/09/18 07:00 Potassium 4.3 mmol/L (3.5-5.1) 11/09/18 07:00 Chloride 103 mmol/L (98-107) 11/09/18 07:00 Carbon Dioxide 19 mmol/L (21-32) L 11/09/18 07:00 Anion Gap 11 MMOL/L (8-16) 11/09/18 07:00 BUN 25 mg/dL (7-18) H 11/09/18 07:00 Creatinine 1.1 mg/dL (0.55-1.3) 11/09/18 07:00 Creat Clearance w eGFR 46.77 (>60) 11/09/18 07:00 Random Glucose 76 mg/dL (74-106) 11/09/18 07:00 Calcium 8.4 mg/dL (8.5-10.1) L 11/09/18 07:00 Phosphorus 3.5 mg/dL (2.5-4.9) 11/08/18 14:05 Magnesium 2.2 mg/dL (1.8-2.4) 11/08/18 14:05 Total Bilirubin 0.5 mg/dL (0.2-1) 11/09/18 07:00 AST 28 U/L (15-37) 11/09/18 07:00 ALT 29 U/L (13-61) 11/09/18 07:00 Alkaline Phosphatase 135 U/L (45-117) H 11/09/18 07:00 Creatine Kinase 33 IU/L (26-192) 11/09/18 00:30 Troponin I 0.04 ng/ml (0.00-0.05) 11/09/18 00:30 B-Natriuretic Peptide 90508.7 pg/ml (5-450) H 11/08/18 14:05 Total Protein 6.5 g/dl (6.4-8.2) 11/09/18 07:00 Albumin 2.4 g/dl (3.4-5.0) L 11/09/18 07:00 TSH 8.88 uIU/ml (0.358-3.74) H 11/09/18 07:00 Free T4 1.25 ng/dl (0.76-1.46) 11/09/18 07:00 Current Medications Generic Name Dose Route Start Last Admin Trade Name Carlosq PRN Reason Stop Dose Admin Amiodarone HCl 200 mg 11/09/18 22:00 11/09/18 21:05 Cordarone - PO 200 mg BID VALENTINE Administration Aspirin 81 mg 11/09/18 10:00 11/09/18 09:41 Asa - PO 81 mg DAILY VALENTINE Administration Atorvastatin Calcium 10 mg 11/08/18 22:00 11/09/18 21:05 Lipitor - PO 10 mg HS VALENTINE Administration Clopidogrel Bisulfate 75 mg 11/09/18 10:00 11/09/18 09:41 Plavix - PO 75 mg DAILY VALENTINE Administration Furosemide 40 mg 11/09/18 10:00 11/09/18 09:41 Lasix - PO 40 mg DAILY VALENTINE Administration Metoprolol Succinate 200 mg 11/09/18 10:00 11/09/18 09:41 Toprol Xl - PO 200 mg DAILY VALENTINE Administration Non-Formulary Medication 1 gm 11/08/18 22:00 Methenamine Hippurate PO BID VALENTINE Pantoprazole Sodium 40 mg 11/09/18 10:00 11/09/18 09:41 Protonix - PO 40 mg DAILY VALENTINE Administration Constitutional: Yes: Calm Eyes: Yes: Conjunctiva Clear HENT: Yes: Normocephalic Neck: Yes: Supple Cardiovascular: Yes: Regular Rate and Rhythm (with left sided PPM), Murmur ( harsh early 2/6 ELIZABETH at base) Respiratory: Yes: Rhonchi Gastrointestinal Inspection: Yes: Hernia (left inguinal nontender hernia), Scars (healed oblique RUQ, vert. RLQ and Pfannensteil incisions) ...Auscultate: Yes: Normoactive Bowel Sounds ...Palpate: Yes: Soft, Other (nontender) ...Percussion: Yes: Tympanitic ...Rectal Exam: Yes: Guaiac Negative (formed and semiformed brown stool) Neurological: Yes: Alert, Oriented Labs: CBC, BMP 11/09/18 07:00 11/09/18 07:00 INR, PTT INR 1.10 (0.83-1.09) H 11/08/18 14:05 Problem List - Problems (1) Constipation Assessment/Plan: I again believe that Chyna's diarrhea is paradoxical and reflects chronic constipation due to a tortuous and possibly strictured sigmoid and waning colonic tone. I do not believe that she has an SBO and will advance her diet. She is not a candidate for colonoscopy given her critical and other comorbidities. Code(s): K59.00 - CONSTIPATION, UNSPECIFIED Qualifiers: Constipation type: unspecified constipation type Qualified Code(s): K59.00 - Constipation, unspecified (2) Diarrhea Code(s): R19.7 - DIARRHEA, UNSPECIFIED (3) Diastolic CHF Code(s): I50.30 - UNSPECIFIED DIASTOLIC (CONGESTIVE) HEART FAILURE (4) Ischemic colitis Code(s): K55.9 - VASCULAR DISORDER OF INTESTINE, UNSPECIFIED (5) Atrial fibrillation Code(s): I48.91 - UNSPECIFIED ATRIAL FIBRILLATION Qualifiers: Atrial fibrillation type: persistent Qualified Code(s): I48.1 - Persistent atrial fibrillation (6) S/P coronary artery stent placement Code(s): Z95.5 - PRESENCE OF CORONARY ANGIOPLASTY IMPLANT AND GRAFT (7) Bile duct calculus Code(s): K80.50 - CALCULUS OF BILE DUCT W/O CHOLANGITIS OR CHOLECYST W/O OBST Qualifiers: Cholecystitis presence: without cholecystitis Biliary obstruction: with biliary obstruction Qualified Code(s): K80.51 - Calculus of bile duct without cholangitis or cholecystitis with obstruction (8) Hypothyroidism Code(s): E03.9 - HYPOTHYROIDISM, UNSPECIFIED Qualifiers: Hypothyroidism type: unspecified Qualified Code(s): E03.9 - Hypothyroidism , unspecified (9) Lower esophageal ring (Schatzki) Code(s): K22.2 - ESOPHAGEAL OBSTRUCTION (10) Severe aortic stenosis Code(s): I35.0 - NONRHEUMATIC AORTIC (VALVE) STENOSIS (11) Syncope and collapse Code(s): R55 - SYNCOPE AND COLLAPSE Assessment/Plan Doubt SBO Suspect paradoxical diarrhea Will advance diet Will resume Miralax when it is clear that diarrhea does not exist
[2018-11-10 06:38] LABS: HEMATOCRIT 27.2 % (32.4-45.2); HEMOGLOBIN 8.9 GM/dL (10.7-15.3); MCH 31.1 pg (25.7-33.7); MCHC 32.8 g/dl (32.0-36.0); MEAN CELL VOLUME 94.9 fl (80-96); MEAN PLT VOLUME 8.9 fl (7.5-11.1); PLATELET COUNT 197 K/MM3 (134-434); RBC 2.87 M/mm3 (3.60-5.2); RDW 15.2 % (11.6-15.6); WHITE BLOOD COUNT 5.7 K/mm3 (4.0-10.0)
[2018-11-10 07:21] LABS: ALBUMIN 2.4 g/dl (3.4-5.0); ALK PHOS 121 U/L (45-117); ANION GAP 9 MMOL/L (8-16); BILIRUBIN,TOTAL 0.5 mg/dL (0.2-1); BLOOD UREA NITROGEN 26 mg/dL (7-18); CALCIUM 8.2 mg/dL (8.5-10.1); CHLORIDE 103 mmol/L (98-107); CO2 24 mmol/L (21-32); CREATININE 1.3 mg/dL (0.55-1.3); GLUCOSE,RANDOM 88 mg/dL (74-106); POTASSIUM 4.1 mmol/L (3.5-5.1); SGOT/AST 23 U/L (15-37); SGPT/ALT 25 U/L (13-61); SODIUM 136 mmol/L (136-145); TOT PROT 6.3 g/dl (6.4-8.2)
[2018-11-10] MEDS: ASPIRIN 81 MG CHEWABLE TABLETS PO SCH (09:29)
[2018-11-10] MEDS: AMIODARONE HCL 200 MG TABLET (FP) PO SCH (09:30)
[2018-11-10] MEDS: PANTOPRAZOLE 40 MG TABLET (FP) PO SCH (09:30)
[2018-11-10] MEDS: FUROSEMIDE 40 MG TABLET (FP) PO SCH (09:30)
[2018-11-10] MEDS: CLOPIDOGREL BISULFATE 75 MG TABLET (FP) PO SCH (09:30)
--- NOTE | 2018-11-10 09:32 | PN ---
Progress Note, Physician History of Present Illness: Reports THAKKAR with rapid afib not responsive to increased amio dose. - Current Medication List Current Medications: Active Medications Amiodarone HCl (Cordarone -) 200 mg PO BID [facility] Last Admin: 11/10/18 09:30 Dose: 200 mg Aspirin (Asa -) 81 mg PO DAILY [facility] Last Admin: 11/10/18 09:29 Dose: 81 mg Atorvastatin Calcium (Lipitor -) 10 mg PO HS [facility] Last Admin: 11/09/18 21:05 Dose: 10 mg Clopidogrel Bisulfate (Plavix -) 75 mg PO DAILY [facility] Last Admin: 11/10/18 09:30 Dose: 75 mg Furosemide (Lasix -) 40 mg PO DAILY [facility] Last Admin: 11/10/18 09:30 Dose: 40 mg Metoprolol Succinate (Toprol Xl -) 200 mg PO DAILY [facility] Last Admin: 11/10/18 09:29 Dose: 200 mg Non-Formulary Medication (Methenamine Hippurate) 1 gm PO BID [facility] Pantoprazole Sodium (Protonix -) 40 mg PO DAILY [facility] Last Admin: 11/10/18 09:30 Dose: 40 mg - Objective Vital Signs: Vital Signs Temperature 97.8 F 11/10/18 08:17 Pulse Rate 116 H 11/10/18 08:17 Respiratory Rate 20 11/10/18 08:17 Blood Pressure 127/75 11/10/18 08:17 O2 Sat by Pulse Oximetry (%) 95 11/10/18 08:38 Constitutional: Yes: No Distress, Calm, Thin Neck: Yes: Supple Cardiovascular: Yes: Tachycardia, Pulse Irregular, Murmur (2/6 SM) Respiratory: Yes: Regular, Diminished, On Nasal O2 Gastrointestinal: Yes: Normal Bowel Sounds, Soft Edema: No Labs: CBC, BMP 11/10/18 05:45 11/10/18 05:45 INR, PTT INR 1.10 (0.83-1.09) H 11/08/18 14:05 - ....Imaging Chest X-ray: Report Reviewed (NAD) EKG: Report Reviewed (Tele: Rapid afib) Problem List - Problems (1) S/P coronary artery stent placement Code(s): Z95.5 - PRESENCE OF CORONARY ANGIOPLASTY IMPLANT AND GRAFT (2) Atrial fibrillation Code(s): I48.91 - UNSPECIFIED ATRIAL FIBRILLATION Qualifiers: Atrial fibrillation type: persistent Qualified Code(s): I48.1 - Persistent atrial fibrillation (3) CHF exacerbation Code(s): I50.9 - HEART FAILURE, UNSPECIFIED Qualifiers: Heart failure type: diastolic Qualified Code(s): I50.33 - Acute on chronic diastolic (congestive) heart failure (4) Coronary artery disease Code(s): I25.10 - ATHSCL HEART DISEASE OF [place] CORONARY ARTERY W/O ANG PCTRS Qualifiers: Coronary Disease-Associated Artery/Lesion type: [place] artery [place] vs. transplanted heart: [place] heart Associated angina: without angina Qualified Code(s): I25.10 - Atherosclerotic heart disease of [place] coronary artery without angina pectoris (5) History of cardioversion Code(s): Z98.890 - OTHER SPECIFIED POSTPROCEDURAL STATES (6) History of pacemaker Code(s): Z95.0 - PRESENCE OF CARDIAC PACEMAKER (7) Hypertension Code(s): I10 - ESSENTIAL (PRIMARY) HYPERTENSION Qualifiers: Hypertension type: essential hypertension Qualified Code(s): I10 - Essential (primary) hypertension (8) Hyponatremia Code(s): E87.1 - HYPO-OSMOLALITY AND HYPONATREMIA (9) Hypothyroidism Code(s): E03.9 - HYPOTHYROIDISM, UNSPECIFIED Qualifiers: Hypothyroidism type: unspecified Qualified Code(s): E03.9 - Hypothyroidism , unspecified (10) Severe aortic stenosis Code(s): I35.0 - NONRHEUMATIC AORTIC (VALVE) STENOSIS Assessment/Plan Echo: 11/09/2018 Mild cLVH with normal LV and RV size and fxn, severe LAE, mod ILIR, pacemaker lead RV chamber, mod-severe MR, TR, small pericardial effusion < 1cm, dilated IVC, mod MG 25 mmHg Echo: 01/06/2018 cLVH with normal LV fxn. abnormal LV compliance, mild LAE, normal RV size and fxn, mod-severe MG 32 mmHgRVSP 40 mmHg, pacemaker lead R&LHc: 08/09/2018 2 vessel CAD severe MG 47.8 mmHg RUBY 0.77 cm^2 PAP 48/17 1. Acute on chronic class II NYHA classification LV failure related to diastolic LV dysfunction 2. Severe aortic valve stenosis 3. Persistent atrial fibrillation with RVR and subtherapeutic INR, h/o cardioversion 4. CAD s/p rotational atherectomy and AGUEDA LAD angina pectoris 5. Post coronary perforation pericarditis 6. 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 HTN/HCVD 8. Hyperlipidemia 9. Hypothyroidism 10. Acute on CKD 11. Fecal impaction 11. Retained stones post cholecystectomy with biliary duct dilatation post therapeutic ERCP/sphincterotomy and biliary stent 12. History of schatzki ring dilation 13. MGUS 14. Hyponatremia PLAN: 1. Resume oral diuresis with monitor diuretic response, renal function and electrolytes, check chest xray 2. Decrease Amio 200 qd, ASA 81 qd, Plavix 75 qd, Toprol XL 200 qd, and Lasix 40 qd with close monitoring of renal function, add Cardizem for additional rate control 3. Continue Lipitor 10 qhs, colchicine 0.6 bid, resume losartan 25 qd once renal fxn stabilizes 4. Anticoagulation held due to recent pericarditis and effusion 5. GI recs noted, TAVR eval as outpatient 6. Thank you for consultative opportunity f/u in office with Dr. Willoughby
--- NOTE | 2018-11-10 10:31 | PN ---
Progress Note, Physician History of Present Illness: Pt w/o CP, palpitations, dizziness, abd pain. P had normal BM last night and this AM; she just finished breakfast, tolerated it well. - Current Medication List Current Medications: Active Medications Amiodarone HCl (Cordarone -) 200 mg PO DAILY [facility] Aspirin (Asa -) 81 mg PO DAILY [facility] Last Admin: 11/10/18 09:29 Dose: 81 mg Atorvastatin Calcium (Lipitor -) 10 mg PO HS [facility] Last Admin: 11/09/18 21:05 Dose: 10 mg Clopidogrel Bisulfate (Plavix -) 75 mg PO DAILY [facility] Last Admin: 11/10/18 09:30 Dose: 75 mg Diltiazem HCl (Cardizem -) 30 mg PO TID [facility] Furosemide (Lasix -) 40 mg PO DAILY [facility] Last Admin: 11/10/18 09:30 Dose: 40 mg Metoprolol Succinate (Toprol Xl -) 200 mg PO DAILY [facility] Last Admin: 11/10/18 09:29 Dose: 200 mg Non-Formulary Medication (Methenamine Hippurate) 1 gm PO BID [facility] Pantoprazole Sodium (Protonix -) 40 mg PO DAILY [facility] Last Admin: 11/10/18 09:30 Dose: 40 mg - Objective Vital Signs: Vital Signs Temperature 97.8 F 11/10/18 08:17 Pulse Rate 116 H 11/10/18 08:17 Respiratory Rate 20 11/10/18 08:17 Blood Pressure 127/75 11/10/18 08:17 O2 Sat by Pulse Oximetry (%) 95 11/10/18 08:38 Constitutional: Yes: No Distress, Calm Cardiovascular: Yes: Tachycardia, Pulse Irregular, S1, S2 Respiratory: Yes: Regular, CTA Bilaterally. No: Rhonchi Gastrointestinal: Yes: Normal Bowel Sounds, Soft. No: Tenderness Edema: No Neurological: Yes: Alert, Oriented Labs: CBC, BMP 11/10/18 05:45 11/10/18 05:45 INR, PTT INR 1.10 (0.83-1.09) H 11/08/18 14:05 Problem List - Problems (1) Weakness Code(s): R53.1 - WEAKNESS (2) Partial bowel obstruction Code(s): K56.600 - PARTIAL INTESTINAL OBSTRUCTION, UNSPECIFIED TO CAUSE (3) Coronary artery disease Code(s): I25.10 - ATHSCL HEART DISEASE OF [place] CORONARY ARTERY W/O ANG PCTRS Qualifiers: Coronary Disease-Associated Artery/Lesion type: [place] artery [place] vs. transplanted heart: [place] heart Associated angina: without angina Qualified Code(s): I25.10 - Atherosclerotic heart disease of [place] coronary artery without angina pectoris (4) CHF (congestive heart failure) Code(s): I50.9 - HEART FAILURE, UNSPECIFIED (5) Atrial fibrillation Code(s): I48.91 - UNSPECIFIED ATRIAL FIBRILLATION Qualifiers: Atrial fibrillation type: persistent Qualified Code(s): I48.1 - Persistent atrial fibrillation (6) S/P coronary artery stent placement Code(s): Z95.5 - PRESENCE OF CORONARY ANGIOPLASTY IMPLANT AND GRAFT (7) Severe aortic stenosis Code(s): I35.0 - NONRHEUMATIC AORTIC (VALVE) STENOSIS (8) Anemia Code(s): D64.9 - ANEMIA, UNSPECIFIED (9) History of pacemaker Code(s): Z95.0 - PRESENCE OF CARDIAC PACEMAKER (10) Hyperlipidemia Code(s): E78.5 - HYPERLIPIDEMIA, UNSPECIFIED Qualifiers: Hyperlipidemia type: pure hypercholesterolemia Qualified Code(s): E78.00 - Pure hypercholesterolemia, unspecified (11) Hypertension Code(s): I10 - ESSENTIAL (PRIMARY) HYPERTENSION Qualifiers: Hypertension type: essential hypertension Qualified Code(s): I10 - Essential (primary) hypertension (12) Hyponatremia Code(s): E87.1 - HYPO-OSMOLALITY AND HYPONATREMIA (13) Hypothyroidism Code(s): E03.9 - HYPOTHYROIDISM, UNSPECIFIED Qualifiers: Hypothyroidism type: unspecified Qualified Code(s): E03.9 - Hypothyroidism , unspecified (14) MGUS (monoclonal gammopathy of unknown significance) Code(s): D47.2 - MONOCLONAL GAMMOPATHY Assessment/Plan Admitted to Telemetry. HR 100-140; pt with A FIB with RVR, asymptomatic; she received AM meds earlier, to monitor HR. Cardio and GI consults are appreciated. Diet was advanced and pt is tolerating it well. To hold on PT until HR is wimproving AM labs Case was d/w pt's nurse.
[2018-11-10] MEDS ORDERED: dilTIAZem HCL 50 MG/10 ML - 10 ML VIAL IVPUSH PRN (11:34)
[2018-11-10] MEDS: dilTIAZem HCL 30 MG TABLET (FP) PO SCH ×2 (11:35→14:50)
[2018-11-10] MEDS ORDERED: SODIUM CHLORIDE 500 ML IV ONE (19:00)
--- NOTE | 2018-11-10 19:26 | RAPID ---
Physical Examination Vital Signs: Vital Signs Temperature 97.8 F 11/10/18 08:17 Pulse Rate 89 11/10/18 18:54 Respiratory Rate 20 11/10/18 18:54 Blood Pressure 76/56 L 11/10/18 18:54 O2 Sat by Pulse Oximetry (%) 95 11/10/18 08:38 Labs: CBC, BMP 11/10/18 05:45 11/10/18 05:45 Rapid Response - Rapid Response Assessment: Rapid response was called for patient's hypotension. Patient endorsed that she felt lightheaded and short of breath. Patient was started on Venti-mask, and placed in [place] position. Vital signs BP: 75/48 HR: 72 BPM Oxygen saturation: 100% on ventimask 50% Respiration rate: tachypnic at 26 breaths per minute Exam General: awake, alert, in respiratory distress. Cardiac: Tachycardic. +S1, S2 auscultated. no M/R/G Pulmonary: Tachypnic. Good air entry b/l. End expiratory wheezing auscultated B/ L. Abdomen: Soft, non distended, nontender to palpation X4 quadrants. Extremities: Cool skin, diaphoretic. Plan STAT ABG, CBC, CMP, Lactic acid, troponin, chest xray Patient Case discussed with Dr. Mccord who recommended IV fluid bolus 500cc. Discussed likely vasovagal etiology. Patient's BP was 79/54, HR 74 BPM after fluids. Case was also discussed with Dr. Walls who recommended ICU transfer. Patient transferred to ICU
--- NOTE | 2018-11-10 20:05 | CONSULT ---
Consult Consult Specialty:: Critical Care Referred by:: Jessica Ernst Reason for Consultation:: Hypotension - History of Present Illness Chief Complaint: hypotension History of Present Illness: 88F extensive PMH of of 2 vessel CAD s/p recent rotational atherectomy and AGUEDA of LAD c/b microperforation, pericarditis, diastolic dysfunction, severe aortic stenosis, hypertension, cardioinhibitory/carotid hypersensitivity s/p pacemaker , hyperlipidemia, persistent A.fib on Coumadin [id number]=2, hypothyroidisms/p appy, cholecystectomy and hysterectomy, diverticulosis/itis, GERD, CBD s/p ERCP , stent placement and stone retrieval, bladder stimulator for urinary frequency , fecal impaction presented diarrhea, generalized weakness, THAKKAR and LE edema without chest pain, palpitations, orthopnea, PND, near or true syncope presented to the hospital at the direction of her education research analyst due to a chief complaint of weakness while in his office. Patient was having diarrhea which has resolved. Rapid response called on telemetry due to hypotension SBP reportedly into the 50s but documents into the 70's. Cardiology called and recommended 250ml IVF. 500ml given and patient's BP started to josh to 80s systolic. Patient was also diaphoretic and tachypenic. Concern for cardiogenic shock vs vasovagal per cardiology. Patient was started on cardizem 30mg po TID but received 2 doses of 30mg po within 3 hours of each other. Patient denies nausea vomiting fever chills chest pain or urinary symptoms. Patient complains of feeling hot and sweating. Upon arrival to the ICU the patient is no longer tachypneic and she feels much more comofrtable and better. 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: Other (macular degeneration) Cardio/Vascular: Yes: AFIB, Aortic Stenosis (0.7cm), HTN, Hyperlipdemia, Mitral Insufficiency, Pulmonary Hypertension, Other (Episodes of vaso-depressive syncope, has PPM) Gastrointestinal: Yes: Diverticulitis (02/21), Diverticulosis, Hemorrhoids, Other (SBO in 10/26, ischemic colitis 10/26) Hepatobiliary: Yes: Cholelithiasis (s/pcholecsytectomy), Choledocholithiasis ( ERCP/sphincerotomy for CBD stone) Renal/: Yes: Neurogenic Bladder (had bladder stimulator placed) ...: No Infectious Disease: Yes: Herpes Zoster (2008) Musculoskeletal: Yes: Chronic low back pain, Osteoarthritis, Other (Spinal stenosis and C spine fracture.) Endocrine: Yes: Hypothyroidism Additional Medical History: Fibrocystic breast disease. Macular degeneration. Herpes Zoster 2008. Ischemic colitis and SBO 2012. Diverticulitis 02/21. C spine fracture. Spinal stenosis. 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 History of Recent Travel: No Home Medications - Allergies Allergies/Adverse Reactions: Allergies Allergy/AdvReac Type Severity Reaction Status Date / Time erythromycin base Allergy Unknown abdominal Verified 11/08/18 12:52 [Erythromycin Base] pain - Home Medications Home Medications: Ambulatory Orders Amiodarone HCl [Cordarone -] 200 mg PO DAILY 11/08/18 Aspirin 81 mg PO DAILY 11/08/18 Clopidogrel Bisulfate [Plavix] 75 mg PO DAILY 11/08/18 Furosemide [Lasix] 40 mg PO DAILY 11/08/18 Methenamine Hippurate [Hiprex [Nf] -] 1 gm PO BID 11/08/18 Metoprolol Succinate [Toprol Xl] 200 mg PO DAILY 11/08/18 Pantoprazole Sodium [Protonix] 40 mg PO DAILY 11/08/18 Simvastatin [Zocor -] 20 mg PO HS 11/08/18 Ascorbate Calcium [Vitamin C] 500 mg PO DAILY 11/09/18 Aspirin [ASA -] 81 mg PO DAILY 11/09/18 Brimonidine Tartrate/Timolol [Combigan Eye Drops] 10 ml OP BID 11/09/18 Colchicine 0.6 mg PO BID 11/09/18 Dorzolamide HCl [Trusopt] 10 ml OD BID 11/09/18 Furosemide [Lasix] 20 mg PO DAILY 11/09/18 Lactobacillus Acidophilus [Acidophilus] 1 each PO DAILY 11/09/18 Latanoprost 0.005% Eye Drops [Xalatan 0.005% Eye Drops -] 1 drop OU HS 11/09/18 Levothyroxine [Synthroid -] 75 mcg PO DAILY 11/09/18 Polyethylene Glycol 3350 [Miralax (For Daily Use) -] 17 gm PO DAILY 11/09/18 Family Disease History - Family Disease History Family Disease History: Diabetes: Brother (colon adenoma), Heart Disease: Father ( 76, H/O alcohol), Mother (,CKD), Brother, CA: Son (brainneoplasm), Other: Father, Brother Review of Systems - Review of Systems Constitutional: reports: Chills, Diaphoresis, Weakness Eyes: reports: No Symptoms HENT: reports: No Symptoms Neck: reports: No Symptoms Cardiovascular: reports: Shortness of Breath. denies: Chest Pain Respiratory: reports: Orthopnea, SOB, SOB on Exertion. denies: Cough Gastrointestinal: denies: Abdominal Pain, Constipation, Diarrhea (resolved at this time) Genitourinary: reports: No Symptoms Integumentary: reports: No Symptoms Neurological: reports: No Symptoms Endocrine: reports: No Symptoms Physical Exam Vital Signs: Vital Signs Temperature 97.4 F L 11/10/18 16:50 Pulse Rate 89 11/10/18 18:54 Respiratory Rate 20 11/10/18 18:54 Blood Pressure 76/56 L 11/10/18 18:54 O2 Sat by Pulse Oximetry (%) 95 11/10/18 08:38 Constitutional: Yes: Well Nourished, Mild Distress, Other (AAOx3) Eyes: Yes: Conjunctiva Clear, EOM Intact HENT: Yes: Atraumatic, Normocephalic Neck: Yes: Supple, Trachea Midline Cardiovascular: Yes: Murmur (3/6 systolic), S1, S2, Other (paced) Respiratory: Yes: Tachypnea, Other (bilateral diffuse crackles) Gastrointestinal: Yes: Soft, Hyperactive Bowel Sounds. No: Tenderness Integumentary: Yes: Other (cool and clammy skin) Labs: CBC, BMP 11/10/18 05:45 11/10/18 05:45 Assessment/Plan 88F with extensive PMH got hypotensive on telemetry requiring ICU transfer. Problem List: Vasodepressive syncope s/p PPM aortic stenosis-severe Lactic acidosis pericarditis CHF-diastolic dysfunction GERD CAD s/p cath and recent AGUEDA ANTONY Pulmonary HTN mitral insufficiency neurogenic bladder lumbago spinal stenosis osteoarthritis hypothyroidism Plan: Discussed with daughter over phone and she states this episode is very similar to multiple episodes she has had in the past due to vasovagal collapse. She states the patient will usually get hypotensive diaphoretic and tachypenic and it would be transient and she would recover. Will start light IVF hydration and repeat lactic acid as lactic acid is 5.7 likely from hypotension and decreased end organ perfusion. ANTONY likely from hypotension as well suspect patient may also have gotten overmedicated with cardizem PO as she was given 30mg po twice within about 3 hours of each other will hold all antihypertensives and diuretics for now will hold off on pressors and central line for now as BP is starting to recover ICU monitoring for now can likely downgrade in AM if patient continue to improve repeat basic labs in AM case discussed with Dr. Feng
[2018-11-10 20:16] LABS: HEMOGLOBIN 10.5 GM/dL (10.7-15.3); MCH 33.2 pg (25.7-33.7); MCHC 34.9 g/dl (32.0-36.0); MEAN CELL VOLUME 95.2 fl (80-96); PLATELET COUNT 243 K/MM3 (134-434); RBC 3.15 M/mm3 (3.60-5.2); RDW 15.2 % (11.6-15.6); WHITE BLOOD COUNT 6.9 K/mm3 (4.0-10.0)
[2018-11-10 21:24] LABS: ALBUMIN 2.5 g/dl (3.4-5.0); ALK PHOS 141 U/L (45-117); ANION GAP 15 MMOL/L (8-16); BILIRUBIN,TOTAL 0.5 mg/dL (0.2-1); BLOOD UREA NITROGEN 28 mg/dL (7-18); CALCIUM 8.4 mg/dL (8.5-10.1); CHLORIDE 100 mmol/L (98-107); CO2 19 mmol/L (21-32); CREATININE 1.6 mg/dL (0.55-1.3); GLUCOSE,RANDOM 168 mg/dL (74-106); POTASSIUM 4.4 mmol/L (3.5-5.1); SGOT/AST 27 U/L (15-37); SGPT/ALT 30 U/L (13-61); SODIUM 134 mmol/L (136-145); TOT PROT 6.7 g/dl (6.4-8.2)
[2018-11-10] MEDS ORDERED: LACTATED RINGERS SOLUTION 1,000 ML/1,000 ML INFUS.BAG IV SCH (21:30)
[2018-11-10] MEDS: ATORVASTATIN CA 10 MG TABLET (FP) PO SCH (22:45)
[2018-11-11 05:51] LABS: BASO % 0.3 % (0-2.0); EOS % 0.2 % (0-4.5); HEMATOCRIT 30.5 % (32.4-45.2); HEMOGLOBIN 9.9 GM/dL (10.7-15.3); LYMPH % 9.7 % (8-40); MCH 30.9 pg (25.7-33.7); MCHC 32.6 g/dl (32.0-36.0); MEAN PLT VOLUME 8.7 fl (7.5-11.1); MONO % 8.9 % (3.8-10.2); NEUT % 80.9 % (42.8-82.8); PLATELET COUNT 210 K/MM3 (134-434); RBC 3.21 M/mm3 (3.60-5.2); RDW 15.2 % (11.6-15.6); WHITE BLOOD COUNT 6.9 K/mm3 (4.0-10.0)
[2018-11-11 06:25] LABS: ALBUMIN 2.6 g/dl (3.4-5.0); ALK PHOS 170 U/L (45-117); ANION GAP 12 MMOL/L (8-16); BILIRUBIN,TOTAL 0.6 mg/dL (0.2-1); BLOOD UREA NITROGEN 32 mg/dL (7-18); CALCIUM 8.4 mg/dL (8.5-10.1); CHLORIDE 100 mmol/L (98-107); CO2 22 mmol/L (21-32); CREATININE 1.6 mg/dL (0.55-1.3); GLUCOSE,RANDOM 102 mg/dL (74-106); PHOSPHOROUS 4.8 mg/dL (2.5-4.9); POTASSIUM 4.5 mmol/L (3.5-5.1); SGOT/AST 43 U/L (15-37); SGPT/ALT 42 U/L (13-61); SODIUM 134 mmol/L (136-145); TOT PROT 6.7 g/dl (6.4-8.2)
--- NOTE | 2018-11-11 09:13 | PN ---
Progress Note (short form) - Note Progress Note: Pulm/CCM Pt seen and examined in ICU 24HR: -vaso vagal likley 2/2 medication, resolved with fluid -HR in 120s this am, w/o symptoms Vital Signs Temp 98.3 F 11/11/18 02:06 Pulse 102 H 11/11/18 06:00 Resp 21 H 11/11/18 06:00 BP 131/97 11/11/18 06:00 Pulse Ox 94 L 11/10/18 21:00 Intake & Output 11/10/18 11/10/18 11/11/18 11:59 23:59 11:59 Intake Total 370 380 184 Balance 370 380 184 Intake: IV 84 LAC #20 11/07/18 84 Oral 370 380 100 Other: Voiding Method Toilet Bedpan # Unmeasured Voids Void 2 1 3 Active Medications Amiodarone HCl (Cordarone -) 200 mg PO DAILY [facility] Aspirin (Asa -) 81 mg PO DAILY [facility] Last Admin: 11/10/18 09:29 Dose: 81 mg Atorvastatin Calcium (Lipitor -) 10 mg PO HS [facility] Last Admin: 11/10/18 22:45 Dose: 10 mg Clopidogrel Bisulfate (Plavix -) 75 mg PO DAILY [facility] Last Admin: 11/10/18 09:30 Dose: 75 mg Diltiazem HCl (Cardizem -) 30 mg PO TID [facility] Last Admin: 11/10/18 14:50 Dose: 30 mg Diltiazem HCl (Cardizem Injection -) 10 mg IVPUSH Q4H PRN PRN Reason: TACHYCARDIA Furosemide (Lasix -) 40 mg PO DAILY [facility] Last Admin: 11/10/18 09:30 Dose: 40 mg Metoprolol Succinate (Toprol Xl -) 200 mg PO DAILY [facility] Last Admin: 11/10/18 09:29 Dose: 200 mg Non-Formulary Medication (Methenamine Hippurate) 1 gm PO BID [facility] Pantoprazole Sodium (Protonix -) 40 mg PO DAILY [facility] Last Admin: 11/10/18 09:30 Dose: 40 mg CBC, BMP 11/11/18 05:30 11/11/18 05:30 Microbiology 11/09/18 10:30 Urine - Urine Clean Catch Urine Culture - Final Contaminated: Please Repeat PE: Constitutional: Yes: awake, alert, no distress Eyes: Yes: Conjunctiva Clear, EOM Intact HENT: Yes: Atraumatic, Normocephalic Neck: Yes: Supple, Trachea Midline Cardiovascular: Yes: Murmur (3/6 systolic LSB), S1, S2, in Afib at 120 Respiratory: Yes: Tachypnea, Other (bilateral diffuse crackles) Gastrointestinal: Yes: Soft, +BS, no pain Integumentary: Yes: warm dry EXT: trace edema Assessment/Plan 88F with HTN, HL, afib, PPM for vasodepressive syncope , transfer to ICU overnight for recurrent vasovagal episode in setting of nausea and multiple doses of CCM Problem List: Vasodepressive syncope s/p PPM aortic stenosis-severe Lactic acidosis pericarditis CHF-diastolic dysfunction GERD CAD s/p cath and recent AGUEDA ANTONY Pulmonary HTN mitral insufficiency neurogenic bladder lumbago spinal stenosis osteoarthritis hypothyroidism Plan: -cont BB and CCB, space dosing, HR target as per Cardiology -cont ASA, Plavix statin -tele monitoring -ok for floor once seen by cardiology -laurel reynolds for proph -OOB to chair today Frankie ACNP [id number]
[2018-11-11] MEDS: PANTOPRAZOLE 40 MG TABLET (FP) PO SCH (09:17)
[2018-11-11] MEDS: ASPIRIN 81 MG CHEWABLE TABLETS PO SCH (09:17)
[2018-11-11] MEDS: CLOPIDOGREL BISULFATE 75 MG TABLET (FP) PO SCH (09:17)
[2018-11-11] MEDS: AMIODARONE HCL 200 MG TABLET (FP) PO SCH (09:18)
--- NOTE | 2018-11-11 10:28 | PN ---
GI Progress Note Subjective: GI NOte: Yesterday's events are noted. Diarrhea resolved. Tolerating solids. No abdominal pain. Nausea resolved. - Objective Vital Signs: Vital Signs Temperature 98.3 F 11/11/18 02:06 Pulse Rate 102 H 11/11/18 06:00 Respiratory Rate 21 H 11/11/18 06:00 Blood Pressure 131/97 11/11/18 06:00 O2 Sat by Pulse Oximetry (%) 94 L 11/10/18 21:00 CBC,CMP WBC 6.9 K/mm3 (4.0-10.0) 11/11/18 05:30 RBC 3.21 M/mm3 (3.60-5.2) L 11/11/18 05:30 Hgb 9.9 GM/dL (10.7-15.3) L 11/11/18 05:30 Hct 30.5 % (32.4-45.2) L 11/11/18 05:30 MCV 95.0 fl (80-96) 11/11/18 05:30 MCH 30.9 pg (25.7-33.7) 11/11/18 05:30 MCHC 32.6 g/dl (32.0-36.0) 11/11/18 05:30 RDW 15.2 % (11.6-15.6) 11/11/18 05:30 Plt Count 210 K/MM3 (134-434) 11/11/18 05:30 MPV 8.7 fl (7.5-11.1) 11/11/18 05:30 Absolute Neuts (auto) 5.6 K/mm3 (1.5-8.0) 11/11/18 05:30 Neutrophils % 80.9 % (42.8-82.8) 11/11/18 05:30 Lymphocytes % 9.7 % (8-40) D 11/11/18 05:30 Monocytes % 8.9 % (3.8-10.2) 11/11/18 05:30 Eosinophils % 0.2 % (0-4.5) 11/11/18 05:30 Basophils % 0.3 % (0-2.0) 11/11/18 05:30 Nucleated RBC % 0 % (0-0) 11/11/18 05:30 Sodium 134 mmol/L (136-145) L 11/11/18 05:30 Potassium 4.5 mmol/L (3.5-5.1) 11/11/18 05:30 Chloride 100 mmol/L (98-107) 11/11/18 05:30 Carbon Dioxide 22 mmol/L (21-32) 11/11/18 05:30 Anion Gap 12 MMOL/L (8-16) 11/11/18 05:30 BUN 32 mg/dL (7-18) H 11/11/18 05:30 Creatinine 1.6 mg/dL (0.55-1.3) H 11/11/18 05:30 Creat Clearance w eGFR 30.35 (>60) 11/11/18 05:30 POC Glucometer 190 UNITS (80-120) 11/10/18 19:52 Random Glucose 102 mg/dL (74-106) 11/11/18 05:30 Lactic Acid 1.3 mmol/L (0.4-2.0) 11/11/18 05:30 Calcium 8.4 mg/dL (8.5-10.1) L 11/11/18 05:30 Phosphorus 4.8 mg/dL (2.5-4.9) 11/11/18 05:30 Magnesium 2.0 mg/dL (1.8-2.4) 11/11/18 05:30 Total Bilirubin 0.6 mg/dL (0.2-1) 11/11/18 05:30 AST 43 U/L (15-37) H 11/11/18 05:30 ALT 42 U/L (13-61) 11/11/18 05:30 Alkaline Phosphatase 170 U/L (45-117) H 11/11/18 05:30 Creatine Kinase 33 IU/L (26-192) 11/09/18 00:30 Troponin I 0.03 ng/ml (0.00-0.05) 11/10/18 19:45 B-Natriuretic Peptide 30399.7 pg/ml (5-450) H 11/08/18 14:05 Total Protein 6.7 g/dl (6.4-8.2) 11/11/18 05:30 Albumin 2.6 g/dl (3.4-5.0) L 11/11/18 05:30 TSH 8.88 uIU/ml (0.358-3.74) H 11/09/18 07:00 Free T4 1.25 ng/dl (0.76-1.46) 11/09/18 07:00 Constitutional: No Distress ...Auscultate: Yes: Normoactive Bowel Sounds ...Palpate: Yes: Soft, Other (nontender) Labs: CBC, BMP 11/11/18 05:30 11/11/18 05:30 INR, PTT INR 1.10 (0.83-1.09) H 11/08/18 14:05 Assessment/Plan Paradoxical diarrhea resolved No evidence of SBO Problem List - Problems (1) Constipation Code(s): K59.00 - CONSTIPATION, UNSPECIFIED Qualifiers: Constipation type: unspecified constipation type Qualified Code(s): K59.00 - Constipation, unspecified (2) Diarrhea Code(s): R19.7 - DIARRHEA, UNSPECIFIED (3) Diastolic CHF Code(s): I50.30 - UNSPECIFIED DIASTOLIC (CONGESTIVE) HEART FAILURE (4) Ischemic colitis Code(s): K55.9 - VASCULAR DISORDER OF INTESTINE, UNSPECIFIED (5) Atrial fibrillation Code(s): I48.91 - UNSPECIFIED ATRIAL FIBRILLATION Qualifiers: Atrial fibrillation type: persistent Qualified Code(s): I48.1 - Persistent atrial fibrillation (6) S/P coronary artery stent placement Code(s): Z95.5 - PRESENCE OF CORONARY ANGIOPLASTY IMPLANT AND GRAFT (7) Bile duct calculus Code(s): K80.50 - CALCULUS OF BILE DUCT W/O CHOLANGITIS OR CHOLECYST W/O OBST Qualifiers: Cholecystitis presence: without cholecystitis Biliary obstruction: with biliary obstruction Qualified Code(s): K80.51 - Calculus of bile duct without cholangitis or cholecystitis with obstruction (8) Hypothyroidism Code(s): E03.9 - HYPOTHYROIDISM, UNSPECIFIED Qualifiers: Hypothyroidism type: unspecified Qualified Code(s): E03.9 - Hypothyroidism , unspecified (9) Lower esophageal ring (Schatzki) Code(s): K22.2 - ESOPHAGEAL OBSTRUCTION (10) Severe aortic stenosis Code(s): I35.0 - NONRHEUMATIC AORTIC (VALVE) STENOSIS (11) Syncope and collapse Code(s): R55 - SYNCOPE AND COLLAPSE
--- NOTE | 2018-11-11 12:58 | PN ---
Progress Note, Physician Chief Complaint: in bed in ICU, family at bedside events, chart, consult meds reviewed and d.w pt and family pt transferred in ICU for RAFib and hypotension, possibly vaso-vagal no CP/SOB no dizziness but c/o nausea could not eat - Current Medication List Current Medications: Active Medications Amiodarone HCl (Cordarone -) 200 mg PO DAILY [facility] Last Admin: 11/11/18 09:18 Dose: 200 mg Aspirin (Asa -) 81 mg PO DAILY [facility] Last Admin: 11/11/18 09:17 Dose: 81 mg Atorvastatin Calcium (Lipitor -) 10 mg PO HS [facility] Last Admin: 11/10/18 22:45 Dose: 10 mg Clopidogrel Bisulfate (Plavix -) 75 mg PO DAILY [facility] Last Admin: 11/11/18 09:17 Dose: 75 mg Diltiazem HCl (Cardizem -) 30 mg PO TID [facility] Last Admin: 11/10/18 14:50 Dose: 30 mg Furosemide (Lasix -) 40 mg PO DAILY [facility] Last Admin: 11/10/18 09:30 Dose: 40 mg Metoprolol Succinate (Toprol Xl -) 200 mg PO DAILY [facility] Last Admin: 11/11/18 09:35 Dose: 200 mg Non-Formulary Medication (Methenamine Hippurate) 1 gm PO BID [facility] Pantoprazole Sodium (Protonix -) 40 mg PO DAILY [facility] Last Admin: 11/11/18 09:17 Dose: 40 mg - Objective Vital Signs: Vital Signs Temperature 98.5 F 11/11/18 10:00 Pulse Rate 108 H 11/11/18 12:00 Respiratory Rate 22 H 11/11/18 12:00 Blood Pressure 126/90 11/11/18 12:00 O2 Sat by Pulse Oximetry (%) 94 L 11/11/18 09:00 Constitutional: Yes: No Distress, Calm Eyes: Yes: Conjunctiva Clear HENT: Yes: Atraumatic Neck: Yes: Supple Cardiovascular: Yes: Regular Rate and Rhythm Respiratory: Yes: CTA Bilaterally Gastrointestinal: Yes: Soft. No: Distention Genitourinary: No: Hematuria Musculoskeletal: No: Joint Stiffness, Joint Swelling Extremities: No: Cold, Cool, Cyanosis Edema: No Integumentary: No: Rash, Venous Stasis Changes Neurological: Yes: WNL, Alert, Oriented ...Motor Strength: WNL Psychiatric: Yes: WNL, Alert, Oriented. No: Agitated, Suicidal Ideation Labs: CBC, BMP 11/11/18 05:30 11/11/18 05:30 INR, PTT INR 1.10 (0.83-1.09) H 11/08/18 14:05 - ....Imaging Other: Report Reviewed Assessment/Plan 88F with HTN, HL, afib, PPM for vasodepressive syncope , transfer to ICU for recurrent vaso-vagal episode, tachycardia and hypotension, in setting of nausea and multiple doses of CCM H/O: Vasodepressive syncope s/p PPM; aortic stenosis-severe Lactic acidosis; pericarditis; CHF-diastolic dysfunction CAD s/p cath and recent AGUEDA GERD, ANTONY/CRF Pulmonary HTN; mitral insufficiency neurogenic bladder lumbago; spinal stenosis; MGUS; osteoarthritis; hypothyroidism Plan: -cont BB and CCB, space dosing, HR target as per Cardiology -cont ASA, Plavix statin -zofran IV prn for nausea, GI f/u -tele monitoring -transfer to telemetry floor when OK with cardiology -protonix, scd for DVT PFX -falls, decubs PFX -OOB to chair today dw pt and family at bedside, prognosis guarded; d/w staff 35 minutes
[2018-11-11] MEDS: ONDANSETRON 4 MG/2 ML VIAL IVPUSH PRN (15:00)
--- NOTE | 2018-11-11 15:42 | PN ---
Progress Note, Physician Chief Complaint: Complains of intermittent nausea AF with RVR at 100-110 bpm History of Present Illness: Patient was seen and examined. Awake and alert. Chart was reviewed Denies chest pain or SOB at this time - Current Medication List Current Medications: Active Medications Amiodarone HCl (Cordarone -) 200 mg PO DAILY [facility] Last Admin: 11/11/18 09:18 Dose: 200 mg Aspirin (Asa -) 81 mg PO DAILY [facility] Last Admin: 11/11/18 09:17 Dose: 81 mg Atorvastatin Calcium (Lipitor -) 10 mg PO HS [facility] Last Admin: 11/10/18 22:45 Dose: 10 mg Clopidogrel Bisulfate (Plavix -) 75 mg PO DAILY [facility] Last Admin: 11/11/18 09:17 Dose: 75 mg Diltiazem HCl (Cardizem -) 30 mg PO TID [facility] Last Admin: 11/10/18 14:50 Dose: 30 mg Furosemide (Lasix -) 40 mg PO DAILY [facility] Last Admin: 11/10/18 09:30 Dose: 40 mg Metoprolol Succinate (Toprol Xl -) 200 mg PO DAILY [facility] Last Admin: 11/11/18 09:35 Dose: 200 mg Non-Formulary Medication (Methenamine Hippurate) 1 gm PO BID [facility] Ondansetron HCl (Zofran Injection) 4 mg IVPUSH Q4H PRN PRN Reason: NAUSEA AND/OR VOMITING Last Admin: 11/11/18 15:00 Dose: 4 mg Pantoprazole Sodium (Protonix -) 40 mg PO DAILY [facility] Last Admin: 11/11/18 09:17 Dose: 40 mg - Objective Vital Signs: Vital Signs Temperature 98.5 F 11/11/18 10:00 Pulse Rate 108 H 11/11/18 12:00 Respiratory Rate 22 H 11/11/18 12:00 Blood Pressure 126/90 11/11/18 12:00 O2 Sat by Pulse Oximetry (%) 94 L 11/11/18 09:00 Eyes: Yes: PERRL HENT: Yes: Atraumatic Neck: Yes: Supple Cardiovascular: Yes: Tachycardia, Pulse Irregular, Murmur (ELIZABETH), S1, S2 Respiratory: Yes: Diminished Gastrointestinal: Yes: Normal Bowel Sounds, Soft. No: Tenderness Edema: No Additional Findings/Remarks: - Review of Systems Constitutional: denies: Chills, Fever Cardiovascular: denies: Palpitations. denies: Chest Pain, Shortness of Breath Respiratory: denies: Cough, Hemoptysis, Orthopnea, PND, SOB, SOB on Exertion Gastrointestinal: denies: Abdominal Pain, Melena, (+) Nausea, denies: Rectal Bleeding, Vomiting Genitourinary: denies: Dysuria, Hematuria Musculoskeletal: denies: Back Pain, Joint Pain Neurological: denies: Dizziness. denies: Change in Speech, Headache, Numbness, Parasthesia, Seizure, Syncope Labs: CBC, BMP 11/11/18 05:30 11/11/18 05:30 - ....Imaging Chest X-ray: Report Reviewed (Atelectasis) Problem List - Problems (1) Anemia Code(s): D64.9 - ANEMIA, UNSPECIFIED (2) Atrial fibrillation Code(s): I48.91 - UNSPECIFIED ATRIAL FIBRILLATION Qualifiers: Atrial fibrillation type: persistent Qualified Code(s): I48.1 - Persistent atrial fibrillation (3) CHF (congestive heart failure) Code(s): I50.9 - HEART FAILURE, UNSPECIFIED (4) Diastolic CHF Code(s): I50.30 - UNSPECIFIED DIASTOLIC (CONGESTIVE) HEART FAILURE (5) Ischemic colitis Code(s): K55.9 - VASCULAR DISORDER OF INTESTINE, UNSPECIFIED (6) Partial bowel obstruction Code(s): K56.600 - PARTIAL INTESTINAL OBSTRUCTION, UNSPECIFIED TO CAUSE (7) S/P coronary artery stent placement Code(s): Z95.5 - PRESENCE OF CORONARY ANGIOPLASTY IMPLANT AND GRAFT (8) History of pacemaker Code(s): Z95.0 - PRESENCE OF CARDIAC PACEMAKER (9) Hyperlipidemia Code(s): E78.5 - HYPERLIPIDEMIA, UNSPECIFIED Qualifiers: Hyperlipidemia type: pure hypercholesterolemia Qualified Code(s): E78.00 - Pure hypercholesterolemia, unspecified (10) Hypertension Code(s): I10 - ESSENTIAL (PRIMARY) HYPERTENSION Qualifiers: Hypertension type: essential hypertension Qualified Code(s): I10 - Essential (primary) hypertension (11) Hypothyroidism Code(s): E03.9 - HYPOTHYROIDISM, UNSPECIFIED Qualifiers: Hypothyroidism type: unspecified Qualified Code(s): E03.9 - Hypothyroidism , unspecified (12) MGUS (monoclonal gammopathy of unknown significance) Code(s): D47.2 - MONOCLONAL GAMMOPATHY (13) Severe aortic stenosis Code(s): I35.0 - NONRHEUMATIC AORTIC (VALVE) STENOSIS Assessment/Plan 1. Acute on chronic class II NYHA classification LV failure related to diastolic LV dysfunction 2. Severe aortic valve stenosis 3. Persistent atrial fibrillation with RVR 4. CAD s/p rotational atherectomy and AGUEDA LAD angina pectoris 5. Post coronary perforation pericarditis 6. 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 HTN/HCVD 8. Hyperlipidemia 9. Hypothyroidism 10. Acute on CKD 11. Retained stones post cholecystectomy with biliary duct dilatation post therapeutic ERCP/sphincterotomy and biliary stent 12. History of schatzki ring dilation 13. MGUS 14. Hyponatremia PLAN: 1. Resume Furosemide 20 mg QD 2. Echocardiography was reviewed 3. Continue Amiodarone 200 mg QD, ASA 81 mg QD, Plavix 75 mg QD and Toprol XL 200 mg QD. Continue Cardizem for rate control and titrate dose (keep HR < 100) 4. Continue Lipitor 10 mg QHS, Colchicine 0.6 mg BID and resume Losartan 25 mg QD once renal function stabilizes 5. Anticoagulation held due to recent pericarditis and effusion 6. Further GI evaluation as outpatient then TAVR evaluation to follow Further plans are to follow Alejandro Elise MD
[2018-11-11] MEDS: COLCHICINE 0.6 MG TABLET (FP) PO SCH (18:05)
[2018-11-11] MEDS: ATORVASTATIN CA 10 MG TABLET (FP) PO SCH (21:02)
[2018-11-11] MEDS: dilTIAZem HCL 30 MG TABLET (FP) PO SCH (21:02)
[2018-11-11] MEDS: POLYETHYLENE GLYCOL 3350 119 GM BTL PO SCH (22:15)
[2018-11-12 05:42] LABS: HEMATOCRIT 29.6 % (32.4-45.2); HEMOGLOBIN 9.8 GM/dL (10.7-15.3); MCH 31.3 pg (25.7-33.7); MEAN CELL VOLUME 94.8 fl (80-96); MEAN PLT VOLUME 8.7 fl (7.5-11.1); PLATELET COUNT 189 K/MM3 (134-434); RBC 3.13 M/mm3 (3.60-5.2); RDW 15.1 % (11.6-15.6); WHITE BLOOD COUNT 6.3 K/mm3 (4.0-10.0)
[2018-11-12] MEDS: dilTIAZem HCL 30 MG TABLET (FP) PO SCH ×2 (05:47→14:40)
[2018-11-12] MEDS: ONDANSETRON 4 MG/2 ML VIAL IVPUSH PRN (06:51)
[2018-11-12 07:01] LABS: BLOOD UREA NITROGEN 31 mg/dL (7-18); CREATININE 1.3 mg/dL (0.55-1.3); GLUCOSE,RANDOM 87 mg/dL (74-106)
[2018-11-12 07:02] LABS: ALBUMIN 2.3 g/dl (3.4-5.0); ALK PHOS 145 U/L (45-117); ANION GAP 10 MMOL/L (8-16); BILIRUBIN,TOTAL 0.7 mg/dL (0.2-1); CALCIUM 8.5 mg/dL (8.5-10.1); CHLORIDE 100 mmol/L (98-107); CO2 22 mmol/L (21-32); POTASSIUM 4.4 mmol/L (3.5-5.1); SGOT/AST 31 U/L (15-37); SGPT/ALT 40 U/L (13-61); SODIUM 133 mmol/L (136-145); TOT PROT 6.3 g/dl (6.4-8.2)
[2018-11-12] MEDS: FUROSEMIDE 40 MG TABLET (FP) PO SCH (09:17)
[2018-11-12] MEDS: AMIODARONE HCL 200 MG TABLET (FP) PO SCH (09:18)
[2018-11-12] MEDS: ASPIRIN 81 MG CHEWABLE TABLETS PO SCH (09:18)
[2018-11-12] MEDS: PANTOPRAZOLE 40 MG TABLET (FP) PO SCH (09:18)
[2018-11-12] MEDS: CLOPIDOGREL BISULFATE 75 MG TABLET (FP) PO SCH (09:19)
[2018-11-12] MEDS: COLCHICINE 0.6 MG TABLET (FP) PO SCH ×2 (09:19→21:10)
--- NOTE | 2018-11-12 09:51 | PN ---
Progress Note, Physician Chief Complaint: Feels better AF with RVR at 100-110 bpm still History of Present Illness: Patient was seen and examined. Awake and alert. Chart was reviewed Denies chest pain or SOB - Current Medication List Current Medications: Active Medications Amiodarone HCl (Cordarone -) 200 mg PO DAILY [facility] Last Admin: 11/12/18 09:18 Dose: 200 mg Aspirin (Asa -) 81 mg PO DAILY [facility] Last Admin: 11/12/18 09:18 Dose: 81 mg Atorvastatin Calcium (Lipitor -) 10 mg PO HS [facility] Last Admin: 11/11/18 21:02 Dose: 10 mg Clopidogrel Bisulfate (Plavix -) 75 mg PO DAILY [facility] Last Admin: 11/12/18 09:19 Dose: 75 mg Colchicine (Colcrys -) 0.6 mg PO DAILY [facility] Last Admin: 11/12/18 09:19 Dose: 0.6 mg Diltiazem HCl (Cardizem -) 30 mg PO TID [facility] Last Admin: 11/12/18 05:47 Dose: 30 mg Furosemide (Lasix -) 20 mg PO DAILY [facility] Last Admin: 11/12/18 09:17 Dose: 20 mg Metoprolol Succinate (Toprol Xl -) 200 mg PO DAILY [facility] Last Admin: 11/11/18 09:35 Dose: 200 mg Non-Formulary Medication (Methenamine Hippurate) 1 gm PO BID [facility] Ondansetron HCl (Zofran Injection) 4 mg IVPUSH Q4H PRN PRN Reason: NAUSEA AND/OR VOMITING Last Admin: 11/12/18 06:51 Dose: 4 mg Pantoprazole Sodium (Protonix -) 40 mg PO DAILY [facility] Last Admin: 11/12/18 09:18 Dose: 40 mg Polyethylene Glycol (Miralax (For Daily Use) -) 17 gm PO BID [facility] Last Admin: 11/11/18 22:15 Dose: 17 gm - Objective Vital Signs: Vital Signs Temperature 98.4 F 11/12/18 06:00 Pulse Rate 94 H 11/12/18 06:00 Respiratory Rate 20 11/12/18 06:00 Blood Pressure 102/54 L 11/12/18 06:00 O2 Sat by Pulse Oximetry (%) 96 11/11/18 19:20 HENT: Yes: Atraumatic Neck: Yes: Supple Cardiovascular: Yes: Tachycardia, Pulse Irregular, Murmur (ELIZABETH), S1, S2 Respiratory: Yes: CTA Bilaterally Gastrointestinal: Yes: Normal Bowel Sounds, Soft. No: Tenderness Edema: No Additional Findings/Remarks: - Review of Systems Constitutional: denies: Chills, Fever Cardiovascular: denies: Palpitations. denies: Chest Pain, Shortness of Breath Respiratory: denies: Cough, Hemoptysis, Orthopnea, PND, SOB, SOB on Exertion Gastrointestinal: denies: Abdominal Pain, Melena, (+) Nausea, denies: Rectal Bleeding, Vomiting Genitourinary: denies: Dysuria, Hematuria Musculoskeletal: denies: Back Pain, Joint Pain Neurological: denies: Dizziness. denies: Change in Speech, Headache, Numbness, Parasthesia, Seizure, Syncope Labs: CBC, BMP 11/12/18 05:30 11/12/18 05:30 INR, PTT INR 1.10 (0.83-1.09) H 11/08/18 14:05 Problem List - Problems (1) Anemia Code(s): D64.9 - ANEMIA, UNSPECIFIED (2) Atrial fibrillation Code(s): I48.91 - UNSPECIFIED ATRIAL FIBRILLATION Qualifiers: Atrial fibrillation type: persistent Qualified Code(s): I48.1 - Persistent atrial fibrillation (3) CHF (congestive heart failure) Code(s): I50.9 - HEART FAILURE, UNSPECIFIED (4) Diastolic CHF Code(s): I50.30 - UNSPECIFIED DIASTOLIC (CONGESTIVE) HEART FAILURE (5) Ischemic colitis Code(s): K55.9 - VASCULAR DISORDER OF INTESTINE, UNSPECIFIED (6) Partial bowel obstruction Code(s): K56.600 - PARTIAL INTESTINAL OBSTRUCTION, UNSPECIFIED TO CAUSE (7) S/P coronary artery stent placement Code(s): Z95.5 - PRESENCE OF CORONARY ANGIOPLASTY IMPLANT AND GRAFT (8) History of pacemaker Code(s): Z95.0 - PRESENCE OF CARDIAC PACEMAKER (9) Hyperlipidemia Code(s): E78.5 - HYPERLIPIDEMIA, UNSPECIFIED Qualifiers: Hyperlipidemia type: pure hypercholesterolemia Qualified Code(s): E78.00 - Pure hypercholesterolemia, unspecified (10) Hypertension Code(s): I10 - ESSENTIAL (PRIMARY) HYPERTENSION Qualifiers: Hypertension type: essential hypertension Qualified Code(s): I10 - Essential (primary) hypertension (11) Hypothyroidism Code(s): E03.9 - HYPOTHYROIDISM, UNSPECIFIED Qualifiers: Hypothyroidism type: unspecified Qualified Code(s): E03.9 - Hypothyroidism , unspecified (12) MGUS (monoclonal gammopathy of unknown significance) Code(s): D47.2 - MONOCLONAL GAMMOPATHY (13) Severe aortic stenosis Code(s): I35.0 - NONRHEUMATIC AORTIC (VALVE) STENOSIS Assessment/Plan 1. Acute on chronic class II NYHA classification LV failure related to diastolic LV dysfunction 2. Severe aortic valve stenosis 3. Persistent atrial fibrillation with RVR 4. CAD s/p rotational atherectomy and AGUEDA LAD angina pectoris 5. Post coronary perforation pericarditis 6. 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 HTN/HCVD 8. Hyperlipidemia 9. Hypothyroidism 10. Acute on CKD 11. Retained stones post cholecystectomy with biliary duct dilatation post therapeutic ERCP/sphincterotomy and biliary stent 12. History of schatzki ring dilation 13. MGUS 14. Hyponatremia PLAN: 1. Resume Furosemide 20 mg QD 2. Continue Amiodarone 200 mg QD, ASA 81 mg QD, Plavix 75 mg QD and Toprol XL 200 mg QD. Continue Cardizem for rate control and titrate dose (keep HR < 100) May consider increasing it to 30 mg Q6 hours 3. Continue Lipitor 10 mg QHS, Colchicine 0.6 mg BID and resume Losartan 25 mg QD once renal function stabilizes 4. Anticoagulation held due to recent pericarditis and effusion, but to assess when to restart 5. Further GI evaluation as outpatient then TAVR evaluation to follow Further plans are to follow Alejandro Elise MD
--- NOTE | 2018-11-12 10:12 | PN ---
Progress Note, Physician Chief Complaint: in ICU in bed NAD VSS no nausea; no CP/SOB ate better; feels better; consults reviewed d/w pt and daughter in law and grand daughter at bedside; - Current Medication List Current Medications: Active Medications Amiodarone HCl (Cordarone -) 200 mg PO DAILY [facility] Last Admin: 11/12/18 09:18 Dose: 200 mg Aspirin (Asa -) 81 mg PO DAILY [facility] Last Admin: 11/12/18 09:18 Dose: 81 mg Atorvastatin Calcium (Lipitor -) 10 mg PO HS [facility] Last Admin: 11/11/18 21:02 Dose: 10 mg Clopidogrel Bisulfate (Plavix -) 75 mg PO DAILY [facility] Last Admin: 11/12/18 09:19 Dose: 75 mg Colchicine (Colcrys -) 0.6 mg PO DAILY [facility] Last Admin: 11/12/18 09:19 Dose: 0.6 mg Diltiazem HCl (Cardizem -) 30 mg PO TID [facility] Last Admin: 11/12/18 05:47 Dose: 30 mg Furosemide (Lasix -) 20 mg PO DAILY [facility] Last Admin: 11/12/18 09:17 Dose: 20 mg Metoprolol Succinate (Toprol Xl -) 200 mg PO DAILY [facility] Last Admin: 11/11/18 09:35 Dose: 200 mg Non-Formulary Medication (Methenamine Hippurate) 1 gm PO BID [facility] Ondansetron HCl (Zofran Injection) 4 mg IVPUSH Q4H PRN PRN Reason: NAUSEA AND/OR VOMITING Last Admin: 11/12/18 06:51 Dose: 4 mg Pantoprazole Sodium (Protonix -) 40 mg PO DAILY [facility] Last Admin: 11/12/18 09:18 Dose: 40 mg Polyethylene Glycol (Miralax (For Daily Use) -) 17 gm PO BID [facility] Last Admin: 11/11/18 22:15 Dose: 17 gm - Objective Vital Signs: Vital Signs Temperature 98.4 F 11/12/18 06:00 Pulse Rate 101 H 11/12/18 08:00 Respiratory Rate 22 H 11/12/18 08:00 Blood Pressure 107/62 11/12/18 08:00 O2 Sat by Pulse Oximetry (%) 98 11/12/18 09:00 Constitutional: Yes: No Distress, Calm Eyes: Yes: Conjunctiva Clear HENT: Yes: Atraumatic Neck: Yes: Supple Cardiovascular: Yes: Regular Rate and Rhythm Respiratory: Yes: CTA Bilaterally Gastrointestinal: Yes: Soft. No: Distention Genitourinary: No: CVA Tenderness - Left, CVA Tenderness - Right, Hematuria Musculoskeletal: No: Joint Stiffness, Joint Swelling Extremities: No: Cold, Cool, Cyanosis Edema: No Integumentary: No: Rash, Venous Stasis Changes Neurological: Yes: WNL, Alert, Oriented ...Motor Strength: WNL Psychiatric: Yes: WNL, Alert, Oriented. No: Agitated, Suicidal Ideation Labs: CBC, BMP 11/12/18 05:30 11/12/18 05:30 INR, PTT INR 1.10 (0.83-1.09) H 11/08/18 14:05 - ....Imaging Other: Report Reviewed Assessment/Plan 88F with HTN, HL, afib, PPM for vasodepressive syncope , s/p recurrent vaso- vagal episode, tachycardia and hypotension; improved now H/O: Vasodepressive syncope s/p PPM; aortic stenosis-severe Lactic acidosis; pericarditis; CHF-diastolic dysfunction CAD s/p cath and recent AGUEDA GERD, ANTONY/CRF Pulmonary HTN; mitral insufficiency neurogenic bladder lumbago; spinal stenosis; MGUS; osteoarthritis; hypothyroidism Plan: -cont BB and CCB, space dosing, HR target as per Cardiology -cont ASA, Plavix statin -zofran IV prn for nausea, GI f/u -telemetry monitoring -protonix, scd for DVT PFX -falls, decubs PFX -OOB to chair today; PT rehab eval; d/w pt and family about DC planning; pt wants to go home with her family, does not want SNF; d/w family she needs 24h care and help at this point at home dw pt and family at bedside, prognosis guarded;
--- NOTE | 2018-11-12 10:30 | PN ---
GI Progress Note Subjective: GI NOte: No diarrhea, in fact is requesting Miralax resumption for constipation and bloating. Tolerating solids well. - Objective Vital Signs: Vital Signs Temperature 97.4 F L 11/12/18 10:00 Pulse Rate 99 H 11/12/18 10:00 Respiratory Rate 26 H 11/12/18 10:00 Blood Pressure 125/88 11/12/18 10:00 O2 Sat by Pulse Oximetry (%) 98 11/12/18 09:00 Laboratory Tests 11/12/18 11/12/18 05:30 05:30 WBC 6.3 Hgb 9.8 L BUN 31 H Creatinine 1.3 Total Bilirubin 0.7 AST 31 ALT 40 Alkaline Phosphatase 145 H Constitutional: No Distress Gastrointestinal Inspection: Yes: Distention ...Auscultate: Yes: Normoactive Bowel Sounds ...Palpate: Yes: Soft, Other (nontender) ...Percussion: Yes: Tympanitic Labs: CBC, BMP 11/12/18 05:30 11/12/18 05:30 INR, PTT INR 1.10 (0.83-1.09) H 11/08/18 14:05 Problem List - Problems (1) Constipation Assessment/Plan: Will resume Miralax Code(s): K59.00 - CONSTIPATION, UNSPECIFIED Qualifiers: Constipation type: unspecified constipation type Qualified Code(s): K59.00 - Constipation, unspecified (2) Diarrhea Code(s): R19.7 - DIARRHEA, UNSPECIFIED (3) Diastolic CHF Code(s): I50.30 - UNSPECIFIED DIASTOLIC (CONGESTIVE) HEART FAILURE (4) Ischemic colitis Code(s): K55.9 - VASCULAR DISORDER OF INTESTINE, UNSPECIFIED (5) Atrial fibrillation Code(s): I48.91 - UNSPECIFIED ATRIAL FIBRILLATION Qualifiers: Atrial fibrillation type: persistent Qualified Code(s): I48.1 - Persistent atrial fibrillation (6) S/P coronary artery stent placement Code(s): Z95.5 - PRESENCE OF CORONARY ANGIOPLASTY IMPLANT AND GRAFT (7) Bile duct calculus Code(s): K80.50 - CALCULUS OF BILE DUCT W/O CHOLANGITIS OR CHOLECYST W/O OBST Qualifiers: Cholecystitis presence: without cholecystitis Biliary obstruction: with biliary obstruction Qualified Code(s): K80.51 - Calculus of bile duct without cholangitis or cholecystitis with obstruction (8) Hypothyroidism Code(s): E03.9 - HYPOTHYROIDISM, UNSPECIFIED Qualifiers: Hypothyroidism type: unspecified Qualified Code(s): E03.9 - Hypothyroidism , unspecified (9) Lower esophageal ring (Schatzki) Code(s): K22.2 - ESOPHAGEAL OBSTRUCTION (10) Severe aortic stenosis Code(s): I35.0 - NONRHEUMATIC AORTIC (VALVE) STENOSIS (11) Syncope and collapse Code(s): R55 - SYNCOPE AND COLLAPSE
[2018-11-12] MEDS: POLYETHYLENE GLYCOL 3350 119 GM BTL PO SCH ×2 (12:43→21:11)
--- NOTE | 2018-11-12 14:24 | PN ---
Progress Note (short form) - Note Progress Note: Pulm/CCM Pt seen and examined in ICU 24HR: -no acute events -Cr downtrending Vital Signs Temp 97.4 F L 11/12/18 10:00 Pulse 109 H 11/12/18 12:00 Resp 24 H 11/12/18 12:00 BP 118/91 11/12/18 12:00 Pulse Ox 98 11/12/18 09:00 Intake & Output 11/11/18 11/12/18 11/12/18 23:59 11:59 23:59 Intake Total 350 100 Balance 350 100 Weight 65.408 kg Intake: Oral 350 100 Other: Voiding Method Bedpan Toilet # Unmeasured Voids Void 1 2 Bowel Movement No No Weight Measurement Method Built in Bedscale Active Medications Amiodarone HCl (Cordarone -) 200 mg PO DAILY [facility] Last Admin: 11/12/18 09:18 Dose: 200 mg Aspirin (Asa -) 81 mg PO DAILY [facility] Last Admin: 11/12/18 09:18 Dose: 81 mg Atorvastatin Calcium (Lipitor -) 10 mg PO HS [facility] Last Admin: 11/11/18 21:02 Dose: 10 mg Clopidogrel Bisulfate (Plavix -) 75 mg PO DAILY [facility] Last Admin: 11/12/18 09:19 Dose: 75 mg Colchicine (Colcrys -) 0.6 mg PO DAILY [facility] Last Admin: 11/12/18 09:19 Dose: 0.6 mg Diltiazem HCl (Cardizem -) 30 mg PO TID [facility] Last Admin: 11/12/18 05:47 Dose: 30 mg Furosemide (Lasix -) 20 mg PO DAILY [facility] Last Admin: 11/12/18 09:17 Dose: 20 mg Metoprolol Succinate (Toprol Xl -) 200 mg PO DAILY [facility] Last Admin: 11/12/18 10:50 Dose: 200 mg Non-Formulary Medication (Methenamine Hippurate) 1 gm PO BID [facility] Ondansetron HCl (Zofran Injection) 4 mg IVPUSH Q4H PRN PRN Reason: NAUSEA AND/OR VOMITING Last Admin: 11/12/18 06:51 Dose: 4 mg Pantoprazole Sodium (Protonix -) 40 mg PO DAILY [facility] Last Admin: 11/12/18 09:18 Dose: 40 mg Polyethylene Glycol (Miralax (For Daily Use) -) 17 gm PO BID [facility] Last Admin: 11/12/18 12:43 Dose: 17 gm CBCD WBC 6.3 K/mm3 (4.0-10.0) 11/12/18 05:30 RBC 3.13 M/mm3 (3.60-5.2) L 11/12/18 05:30 Hgb 9.8 GM/dL (10.7-15.3) L 11/12/18 05:30 Hct 29.6 % (32.4-45.2) L 11/12/18 05:30 MCV 94.8 fl (80-96) 11/12/18 05:30 MCHC 33.0 g/dl (32.0-36.0) 11/12/18 05:30 RDW 15.1 % (11.6-15.6) 11/12/18 05:30 Plt Count 189 K/MM3 (134-434) 11/12/18 05:30 MPV 8.7 fl (7.5-11.1) 11/12/18 05:30 CMP Sodium 133 mmol/L (136-145) L 11/12/18 05:30 Potassium 4.4 mmol/L (3.5-5.1) 11/12/18 05:30 Chloride 100 mmol/L (98-107) 11/12/18 05:30 Carbon Dioxide 22 mmol/L (21-32) 11/12/18 05:30 Anion Gap 10 MMOL/L (8-16) 11/12/18 05:30 BUN 31 mg/dL (7-18) H 11/12/18 05:30 Creatinine 1.3 mg/dL (0.55-1.3) 11/12/18 05:30 Creat Clearance w eGFR 38.57 (>60) 11/12/18 05:30 Calcium 8.5 mg/dL (8.5-10.1) 11/12/18 05:30 Total Bilirubin 0.7 mg/dL (0.2-1) 11/12/18 05:30 AST 31 U/L (15-37) 11/12/18 05:30 ALT 40 U/L (13-61) 11/12/18 05:30 Alkaline Phosphatase 145 U/L (45-117) H 11/12/18 05:30 Total Protein 6.3 g/dl (6.4-8.2) L 11/12/18 05:30 Albumin 2.3 g/dl (3.4-5.0) L 11/12/18 05:30 Microbiology 11/09/18 10:30 Urine - Urine Clean Catch Urine Culture - Final Contaminated: Please Repeat PE: Constitutional: Yes: awake, alert, no distress Eyes: Yes: Conjunctiva Clear, EOM Intact HENT: Yes: Atraumatic, Normocephalic Neck: Yes: Supple, Trachea Midline Cardiovascular: Yes: Murmur (3/6 systolic LSB), S1, S2, in Afib at 120 Respiratory: Yes: Tachypnea, Other (bilateral diffuse crackles) Gastrointestinal: Yes: Soft, +BS, no pain Integumentary: Yes: warm dry EXT: trace edema Assessment/Plan 88F with HTN, HL, afib, PPM for vasodepressive syncope , transfer to ICU overnight for recurrent vasovagal episode in setting of nausea and multiple doses of CCM Problem List: Vasodepressive syncope s/p PPM aortic stenosis-severe Lactic acidosis pericarditis CHF-diastolic dysfunction GERD CAD s/p cath and recent AGUEDA ANTONY Pulmonary HTN mitral insufficiency neurogenic bladder lumbago spinal stenosis osteoarthritis hypothyroidism Plan: -cont BB and CCB, space dosing, HR target as per Cardiology -cont ASA, Plavix statin -tele monitoring -ok for floor -protonix, scd for proph -OOB to chair today Frankie ACNP [id number]
[2018-11-12] MEDS: ATORVASTATIN CA 10 MG TABLET (FP) PO SCH (21:05)
[2018-11-13] MEDS: ONDANSETRON 4 MG/2 ML VIAL IVPUSH PRN (00:27)
[2018-11-13] MEDS: dilTIAZem HCL 30 MG TABLET (FP) PO SCH ×4 (00:27→18:22)
[2018-11-13 05:38] LABS: EOS % 2.5 % (0-4.5); HEMATOCRIT 29.1 % (32.4-45.2); HEMOGLOBIN 9.7 GM/dL (10.7-15.3); LYMPH % 15.6 % (8-40); MCH 31.4 pg (25.7-33.7); MCHC 33.4 g/dl (32.0-36.0); MEAN CELL VOLUME 93.9 fl (80-96); MEAN PLT VOLUME 8.7 fl (7.5-11.1); MONO % 13.1 % (3.8-10.2); NEUT % 67.8 % (42.8-82.8); PLATELET COUNT 187 K/MM3 (134-434); RBC 3.09 M/mm3 (3.60-5.2); RDW 15.3 % (11.6-15.6); WHITE BLOOD COUNT 5.7 K/mm3 (4.0-10.0)
[2018-11-13 06:20] LABS: ALBUMIN 2.4 g/dl (3.4-5.0); ALK PHOS 141 U/L (45-117); ANION GAP 9 MMOL/L (8-16); BILIRUBIN,TOTAL 0.5 mg/dL (0.2-1); BLOOD UREA NITROGEN 26 mg/dL (7-18); CALCIUM 8.5 mg/dL (8.5-10.1); CHLORIDE 101 mmol/L (98-107); CO2 25 mmol/L (21-32); CREATININE 1.2 mg/dL (0.55-1.3); GLUCOSE,RANDOM 108 mg/dL (74-106); POTASSIUM 4.2 mmol/L (3.5-5.1); SGOT/AST 27 U/L (15-37); SGPT/ALT 37 U/L (13-61); SODIUM 135 mmol/L (136-145); TOT PROT 6.4 g/dl (6.4-8.2)
--- NOTE | 2018-11-13 06:44 | PN ---
Progress Note, Physician Chief Complaint: in bed NAD no new c/o except feeling very weak - now agreed to go to Rehab - Current Medication List Current Medications: Active Medications Amiodarone HCl (Cordarone -) 200 mg PO DAILY [facility] Last Admin: 11/12/18 09:18 Dose: 200 mg Aspirin (Asa -) 81 mg PO DAILY [facility] Last Admin: 11/12/18 09:18 Dose: 81 mg Atorvastatin Calcium (Lipitor -) 10 mg PO HS [facility] Last Admin: 11/12/18 21:05 Dose: 10 mg Clopidogrel Bisulfate (Plavix -) 75 mg PO DAILY [facility] Last Admin: 11/12/18 09:19 Dose: 75 mg Colchicine (Colcrys -) 0.6 mg PO BID [facility] Last Admin: 11/12/18 21:10 Dose: 0.6 mg Diltiazem HCl (Cardizem -) 30 mg PO Q6HPO [facility] Last Admin: 11/13/18 06:08 Dose: 30 mg Furosemide (Lasix -) 20 mg PO DAILY [facility] Last Admin: 11/12/18 09:17 Dose: 20 mg Metoprolol Succinate (Toprol Xl -) 200 mg PO DAILY [facility] Last Admin: 11/12/18 10:50 Dose: 200 mg Non-Formulary Medication (Methenamine Hippurate) 1 gm PO BID [facility] Ondansetron HCl (Zofran Injection) 4 mg IVPUSH Q4H PRN PRN Reason: NAUSEA AND/OR VOMITING Last Admin: 11/13/18 00:27 Dose: 4 mg Pantoprazole Sodium (Protonix -) 40 mg PO DAILY [facility] Last Admin: 11/12/18 09:18 Dose: 40 mg Polyethylene Glycol (Miralax (For Daily Use) -) 17 gm PO BID [facility] Last Admin: 11/12/18 21:11 Dose: 17 gm - Objective Vital Signs: Vital Signs Temperature 98.2 F 11/13/18 02:00 Pulse Rate 102 H 11/13/18 06:00 Respiratory Rate 16 11/13/18 06:00 Blood Pressure 99/79 11/13/18 06:00 O2 Sat by Pulse Oximetry (%) 96 11/12/18 20:24 Constitutional: Yes: No Distress, Calm Eyes: Yes: Conjunctiva Clear HENT: Yes: Atraumatic Neck: Yes: Supple Cardiovascular: Yes: Regular Rate and Rhythm Respiratory: Yes: CTA Bilaterally Gastrointestinal: Yes: Soft. No: Distention Genitourinary: No: CVA Tenderness - Left, CVA Tenderness - Right Musculoskeletal: No: Joint Stiffness, Joint Swelling Extremities: No: Cold, Cool, Cyanosis Edema: No Integumentary: No: Rash, Venous Stasis Changes Neurological: Yes: WNL, Alert, Oriented ...Motor Strength: WNL Psychiatric: Yes: WNL, Alert, Oriented, Suicidal Ideation. No: Agitated Labs: CBC, BMP 11/13/18 05:15 11/13/18 05:15 INR, PTT INR 1.10 (0.83-1.09) H 11/08/18 14:05 - ....Imaging Other: Report Reviewed Assessment/Plan 88F with HTN, HL, afib, PPM for vasodepressive syncope , s/p recurrent vaso- vagal episode, tachycardia and hypotension; improved now H/O: Vasodepressive syncope s/p PPM; aortic stenosis-severe Lactic acidosis; pericarditis; CHF-diastolic dysfunction CAD s/p cath and recent AGUEDA GERD, ANTONY/CRF Pulmonary HTN; mitral insufficiency neurogenic bladder lumbago; spinal stenosis; MGUS; osteoarthritis; hypothyroidism Plan: -cont BB and CCB, space dosing, HR target as per Cardiology -cont ASA, Plavix statin -zofran IV prn for nausea, GI f/u -telemetry monitoring -protonix, scd for DVT PFX -falls, decubs PFX -OOB to chair today; PT rehab eval; d/w pt again about DC planning; pt agreed with SNF; d/w pt's daughter /phone also prognosis guarded;
--- NOTE | 2018-11-13 07:22 | PN ---
Physical Exam: SUBJECTIVE: Patient seen and examined. Denies dizziness this morning or further syncopal-like episodes. Denies chest pain, [place], blurry vision, SOB, V/C/D. Endorses intermittent nausea. OBJECTIVE: Vital Signs Period Temp Pulse Resp BP Sys/Rolon Pulse Ox Last 24 Hr 97.4 F-98.2 F 78-116 16-26 99-125/62-95 96-98 GENERAL: Awake, alert, and fully oriented, in no acute distress HEAD: No signs of trauma, normocephalic, atraumatic EYES: PERRLA, EOMI, sclera anicteric, conjunctiva clear ENT: Hearing grossly normal, nares patent, oropharynx clear without exudates. Moist mucosa LUNGS: No distress, speaks full sentences, clear to auscultation bilaterally HEART: Tachycardic, irregularly irregular rhythm, systolic murmur ABDOMEN: Soft, nontender, normoactive bowel sounds. No guarding, no rebound EXTREMITIES: No clubbing or cyanosis NEUROLOGICAL: Cranial nerves II through XII grossly intact. Normal speech, no focal sensorimotor deficits SKIN: Warm, Dry Active Medications Generic Name Dose Route Start Last Admin Trade Name Freq PRN Reason Stop Dose Admin Amiodarone HCl 200 mg 11/11/18 10:00 11/12/18 09:18 Cordarone - PO 200 mg DAILY [facility] Administration Aspirin 81 mg 11/09/18 10:00 11/12/18 09:18 Asa - PO 81 mg DAILY [facility] Administration Atorvastatin Calcium 10 mg 11/08/18 22:00 11/12/18 21:05 Lipitor - PO 10 mg HS [facility] Administration Clopidogrel Bisulfate 75 mg 11/09/18 10:00 11/12/18 09:19 Plavix - PO 75 mg DAILY [facility] Administration Colchicine 0.6 mg 11/12/18 22:00 11/12/18 21:10 Colcrys - PO 0.6 mg BID [facility] Administration Diltiazem HCl 30 mg 11/13/18 00:00 11/13/18 06:08 Cardizem - PO 30 mg Q6HPO [facility] Administration Furosemide 20 mg 11/11/18 15:54 11/12/18 09:17 Lasix - PO 20 mg DAILY [facility] Administration Metoprolol Succinate 200 mg 11/09/18 10:00 11/12/18 10:50 Toprol Xl - PO 200 mg DAILY [facility] Administration Non-Formulary Medication 1 gm 11/08/18 22:00 Methenamine Hippurate PO BID [facility] Ondansetron HCl 4 mg 11/11/18 13:45 11/13/18 00:27 Zofran Injection IVPUSH 4 mg Q4H PRN Administration NAUSEA AND/OR VOMITING Pantoprazole Sodium 40 mg 11/09/18 10:00 11/12/18 09:18 Protonix - PO 40 mg DAILY [facility] Administration Polyethylene Glycol 17 gm 11/11/18 22:00 11/12/18 21:11 Miralax (For Daily Use) - PO 17 gm BID [facility] Administration ASSESSMENT/PLAN: The patient is an 88F with HTN, HLD, a-fib, vasdepressive syncope s/p pacemaker who was transferred to the ICU for recurrent vasovagal episode in setting of nausea and multiple doses of CCM. Neuro Denies pain CV CAD s/p cath and recent AGUEDA HFpEF MVR Severe Vasdepressive syncope s/p pacemaker -Plavix -Diltiazem -Metoprolol -Amiodarone -ASA -Statin -Lasix Pulm Pulmonary HTN GI GERD -Protonix Nausea -Zofran PRN Nutrition -Sodium diet -Bowel regimen Heme Hgb 9.7, stable, CTM DVT ppx -Plavix, ASA ID Afebrile, no leukocytosis, CTM Endo Gout -Colchicine LTD PIV Dispo: Patient no longer requires ICU level of care and will be transferred to Tele floor. Visit type - Emergency Visit Emergency Visit: Yes ED Registration Date: 11/08/18 Care time: The patient presented to the Emergency Department on the above date and was hospitalized for further evaluation of their emergent condition. - New Patient This patient is new to me today: Yes Date on this admission: 11/13/18 - Critical Care Critical Care patient: Yes Total Critical Care Time (in minutes): 35 Critical Care Statement: The care of this patient involved high complexity decision making to prevent further life threatening deterioration of the patient 's condition and/or to evaluate & treat vital organ system(s) failure or risk of failure.
[2018-11-13] MEDS: ASPIRIN 81 MG CHEWABLE TABLETS PO SCH (10:03)
[2018-11-13] MEDS: FUROSEMIDE 40 MG TABLET (FP) PO SCH (10:03)
[2018-11-13] MEDS: PANTOPRAZOLE 40 MG TABLET (FP) PO SCH (10:03)
[2018-11-13] MEDS: AMIODARONE HCL 200 MG TABLET (FP) PO SCH (10:04)
[2018-11-13] MEDS: CLOPIDOGREL BISULFATE 75 MG TABLET (FP) PO SCH (10:04)
[2018-11-13] MEDS: POLYETHYLENE GLYCOL 3350 119 GM BTL PO SCH ×2 (10:05→21:43)
[2018-11-13] MEDS: COLCHICINE 0.6 MG TABLET (FP) PO SCH ×2 (10:05→21:42)
--- NOTE | 2018-11-13 10:55 | PN ---
Progress Note, Physician Chief Complaint: Feels better Persistent AF with variable HR History of Present Illness: Patient was seen and examined. Awake and alert. Chart was reviewed Denies chest pain or SOB - Current Medication List Current Medications: Active Medications Amiodarone HCl (Cordarone -) 200 mg PO DAILY [facility] Last Admin: 11/13/18 10:04 Dose: 200 mg Aspirin (Asa -) 81 mg PO DAILY [facility] Last Admin: 11/13/18 10:03 Dose: 81 mg Atorvastatin Calcium (Lipitor -) 10 mg PO HS [facility] Last Admin: 11/12/18 21:05 Dose: 10 mg Clopidogrel Bisulfate (Plavix -) 75 mg PO DAILY [facility] Last Admin: 11/13/18 10:04 Dose: 75 mg Colchicine (Colcrys -) 0.6 mg PO BID [facility] Last Admin: 11/13/18 10:05 Dose: 0.6 mg Diltiazem HCl (Cardizem -) 30 mg PO Q6HPO [facility] Last Admin: 11/13/18 06:08 Dose: 30 mg Furosemide (Lasix -) 20 mg PO DAILY [facility] Last Admin: 11/13/18 10:03 Dose: 20 mg Metoprolol Succinate (Toprol Xl -) 200 mg PO DAILY [facility] Last Admin: 11/13/18 10:04 Dose: 200 mg Non-Formulary Medication (Methenamine Hippurate) 1 gm PO BID [facility] Ondansetron HCl (Zofran Injection) 4 mg IVPUSH Q4H PRN PRN Reason: NAUSEA AND/OR VOMITING Last Admin: 11/13/18 00:27 Dose: 4 mg Pantoprazole Sodium (Protonix -) 40 mg PO DAILY [facility] Last Admin: 11/13/18 10:03 Dose: 40 mg Polyethylene Glycol (Miralax (For Daily Use) -) 17 gm PO BID [facility] Last Admin: 11/13/18 10:05 Dose: Not Given - Objective Vital Signs: Vital Signs Temperature 96.8 F L 11/13/18 10:00 Pulse Rate 101 H 11/13/18 10:00 Respiratory Rate 18 11/13/18 10:00 Blood Pressure 101/58 L 11/13/18 10:00 O2 Sat by Pulse Oximetry (%) 96 11/13/18 09:00 Neck: Yes: Supple Cardiovascular: Yes: Tachycardia, Pulse Irregular, Murmur (ELIZABETH), S1, S2 Respiratory: Yes: CTA Bilaterally Gastrointestinal: Yes: Normal Bowel Sounds, Soft. No: Tenderness Edema: No Additional Findings/Remarks: - Review of Systems Constitutional: denies: Chills, Fever Cardiovascular: denies: Palpitations. denies: Chest Pain, Shortness of Breath Respiratory: denies: Cough, Hemoptysis, Orthopnea, PND, SOB, SOB on Exertion Gastrointestinal: denies: Abdominal Pain, Melena, (+) Nausea, denies: Rectal Bleeding, Vomiting Genitourinary: denies: Dysuria, Hematuria Musculoskeletal: denies: Back Pain, Joint Pain Neurological: denies: Dizziness. denies: Change in Speech, Headache, Numbness, Parasthesia, Seizure, Syncope Labs: CBC, BMP 11/13/18 05:15 11/13/18 05:15 INR, PTT INR 1.10 (0.83-1.09) H 11/08/18 14:05 Problem List - Problems (1) Anemia Code(s): D64.9 - ANEMIA, UNSPECIFIED (2) Atrial fibrillation Code(s): I48.91 - UNSPECIFIED ATRIAL FIBRILLATION Qualifiers: Atrial fibrillation type: persistent Qualified Code(s): I48.1 - Persistent atrial fibrillation (3) CHF (congestive heart failure) Code(s): I50.9 - HEART FAILURE, UNSPECIFIED (4) Diastolic CHF Code(s): I50.30 - UNSPECIFIED DIASTOLIC (CONGESTIVE) HEART FAILURE (5) Ischemic colitis Code(s): K55.9 - VASCULAR DISORDER OF INTESTINE, UNSPECIFIED (6) Partial bowel obstruction Code(s): K56.600 - PARTIAL INTESTINAL OBSTRUCTION, UNSPECIFIED TO CAUSE (7) S/P coronary artery stent placement Code(s): Z95.5 - PRESENCE OF CORONARY ANGIOPLASTY IMPLANT AND GRAFT (8) History of pacemaker Code(s): Z95.0 - PRESENCE OF CARDIAC PACEMAKER (9) Hyperlipidemia Code(s): E78.5 - HYPERLIPIDEMIA, UNSPECIFIED Qualifiers: Hyperlipidemia type: pure hypercholesterolemia Qualified Code(s): E78.00 - Pure hypercholesterolemia, unspecified (10) Hypertension Code(s): I10 - ESSENTIAL (PRIMARY) HYPERTENSION Qualifiers: Hypertension type: essential hypertension Qualified Code(s): I10 - Essential (primary) hypertension (11) Hypothyroidism Code(s): E03.9 - HYPOTHYROIDISM, UNSPECIFIED Qualifiers: Hypothyroidism type: unspecified Qualified Code(s): E03.9 - Hypothyroidism , unspecified (12) MGUS (monoclonal gammopathy of unknown significance) Code(s): D47.2 - MONOCLONAL GAMMOPATHY (13) Severe aortic stenosis Code(s): I35.0 - NONRHEUMATIC AORTIC (VALVE) STENOSIS Assessment/Plan 1. Acute on chronic class II NYHA classification LV failure related to diastolic LV dysfunction 2. Severe aortic valve stenosis 3. Persistent atrial fibrillation with RVR 4. CAD s/p rotational atherectomy and AGUEDA LAD angina pectoris 5. Post coronary perforation pericarditis 6. 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 HTN/HCVD 8. Hyperlipidemia 9. Hypothyroidism 10. Acute on CKD 11. Retained stones post cholecystectomy with biliary duct dilatation post therapeutic ERCP/sphincterotomy and biliary stent 12. History of schatzki ring dilation 13. MGUS 14. Hyponatremia PLAN: 1. Continue Furosemide 20 mg QD 2. Continue Amiodarone 200 mg QD, ASA 81 mg QD, Plavix 75 mg QD and Toprol XL 200 mg QD. Continue Cardizem for rate control and titrate dose (keep HR < 100) 3. Continue Lipitor 10 mg QHS, Colchicine 0.6 mg BID and resume Losartan 25 mg QD once renal function stabilizes 4. Anticoagulation held due to recent pericarditis and effusion, but to assess when to restart 5. Further GI evaluation as outpatient then TAVR evaluation to follow Further plans are to follow Alejandro Elise MD
--- NOTE | 2018-11-13 12:13 | PN ---
Teaching Attending Note Name of Resident: Haroon Suarez ATTENDING PHYSICIAN STATEMENT I saw and evaluated the patient. I reviewed the resident's note and discussed the case with the resident. I agree with the resident's findings and plan as documented. SUBJECTIVE: Patient seen and examined in ICU. Awake and alert. Denies CP or SOB. No dizziness or further syncopal episodes. Intake & Output 11/10/18 11/11/18 11/12/18 11/13/18 23:59 23:59 23:59 23:59 Intake Total 750 534 500 Balance 750 534 500 Weight 144 lb 3.2 oz 147 lb Last Vital Signs Temp Pulse Resp BP Pulse Ox 96.8 F L 101 H 18 101/58 L 96 11/13/18 10:00 11/13/18 10:00 11/13/18 10:00 11/13/18 10:00 11/13/18 09:00 Active Medications Amiodarone HCl (Cordarone -) 200 mg PO DAILY [facility] Last Admin: 11/13/18 10:04 Dose: 200 mg Aspirin (Asa -) 81 mg PO DAILY [facility] Last Admin: 11/13/18 10:03 Dose: 81 mg Atorvastatin Calcium (Lipitor -) 10 mg PO HS [facility] Last Admin: 11/12/18 21:05 Dose: 10 mg Clopidogrel Bisulfate (Plavix -) 75 mg PO DAILY [facility] Last Admin: 11/13/18 10:04 Dose: 75 mg Colchicine (Colcrys -) 0.6 mg PO BID [facility] Last Admin: 11/13/18 10:05 Dose: 0.6 mg Diltiazem HCl (Cardizem -) 30 mg PO Q6HPO [facility] Last Admin: 11/13/18 06:08 Dose: 30 mg Furosemide (Lasix -) 20 mg PO DAILY [facility] Last Admin: 11/13/18 10:03 Dose: 20 mg Metoprolol Succinate (Toprol Xl -) 200 mg PO DAILY [facility] Last Admin: 11/13/18 10:04 Dose: 200 mg Non-Formulary Medication (Methenamine Hippurate) 1 gm PO BID [facility] Ondansetron HCl (Zofran Injection) 4 mg IVPUSH Q4H PRN PRN Reason: NAUSEA AND/OR VOMITING Last Admin: 11/13/18 00:27 Dose: 4 mg Pantoprazole Sodium (Protonix -) 40 mg PO DAILY [facility] Last Admin: 12/31/18 10:03 Dose: 40 mg Polyethylene Glycol (Miralax (For Daily Use) -) 17 gm PO BID [facility] Last Admin: 11/13/18 10:05 Dose: Not Given PE: Constitutional: Yes: awake, alert, no distress Eyes: Yes: Conjunctiva Clear, EOM Intact HENT: Yes: Atraumatic, Normocephalic Neck: Yes: Supple, Trachea Midline Cardiovascular: Yes: Afib, 3/6 systolic LSB murmur Respiratory: Yes: few basilar rhonchi Gastrointestinal: Yes: Soft, +BS, no pain Integumentary: Yes: warm dry Extremities: trace edema Laboratory Results - last 24 hr 11/12/18 11/13/18 11/13/18 05:26 05:15 05:15 WBC 5.7 RBC 3.09 L Hgb 9.7 L Hct 29.1 L MCV 93.9 MCH 31.4 MCHC 33.4 RDW 15.3 Plt Count 187 MPV 8.7 Absolute Neuts (auto) 3.9 Neutrophils % 67.8 Lymphocytes % 15.6 D Monocytes % 13.1 H Eosinophils % 2.5 D Basophils % 1.0 D Nucleated RBC % 0 Sodium 135 L Potassium 4.2 Chloride 101 Carbon Dioxide 25 Anion Gap 9 BUN 26 H Creatinine 1.2 Creat Clearance w eGFR 42.30 POC Glucometer [id number] Random Glucose 108 H Calcium 8.5 Total Bilirubin 0.5 AST 27 ALT 37 Alkaline Phosphatase 141 H Total Protein 6.4 Albumin 2.4 L Assessment/Plan Recurrent Vasodepressive syncope S/P PPM Severe aortic stenosis Lactic acidosis (?) Pericarditis CHF-diastolic dysfunction GERD CAD s/p cath and recent AGUEDA ANTONY Pulmonary HTN mitral insufficiency neurogenic bladder lumbago spinal stenosis osteoarthritis hypothyroidism Plan: -Rate control meds per Cardiology -continue ASA, Plavix -Statin -PPI -OOB to chair today -Cardiac Telemetry monitoring Dr Cabello
[2018-11-13] MEDS: MAG HYDROX/AL HYDROX/SIMETH 30 ML UNIT-DOSE CUP PO PRN (18:22)
[2018-11-13] MEDS: ATORVASTATIN CA 10 MG TABLET (FP) PO SCH (21:42)
[2018-11-14] MEDS: dilTIAZem HCL 30 MG TABLET (FP) PO SCH ×5 (00:19→23:52)
[2018-11-14 05:57] LABS: BASO % 1.2 % (0-2.0); EOS % 2.5 % (0-4.5); HEMATOCRIT 29.9 % (32.4-45.2); HEMOGLOBIN 9.6 GM/dL (10.7-15.3); LYMPH % 11.6 % (8-40); MCH 30.7 pg (25.7-33.7); MCHC 32.2 g/dl (32.0-36.0); MEAN CELL VOLUME 95.3 fl (80-96); MEAN PLT VOLUME 8.6 fl (7.5-11.1); MONO % 12.6 % (3.8-10.2); NEUT % 72.1 % (42.8-82.8); PLATELET COUNT 170 K/MM3 (134-434); RBC 3.14 M/mm3 (3.60-5.2); RDW 15.2 % (11.6-15.6); WHITE BLOOD COUNT 5.7 K/mm3 (4.0-10.0)
[2018-11-14] MEDS ORDERED: SIMETHICONE 80 MG TAB.CHEW (FP) PO PRN (06:31)
[2018-11-14] MEDS ORDERED: HYDROCORTISONE 1% TOPICAL CREAM 30 GM TUBE TP PRN (06:32)
[2018-11-14 06:34] LABS: ALBUMIN 2.4 g/dl (3.4-5.0); ALK PHOS 138 U/L (45-117); ANION GAP 7 MMOL/L (8-16); BILIRUBIN,TOTAL 0.6 mg/dL (0.2-1); BLOOD UREA NITROGEN 18 mg/dL (7-18); CALCIUM 8.2 mg/dL (8.5-10.1); CHLORIDE 103 mmol/L (98-107); CO2 27 mmol/L (21-32); CREATININE 0.9 mg/dL (0.55-1.3); GLUCOSE,RANDOM 94 mg/dL (74-106); MAGNESIUM 1.7 mg/dL (1.8-2.4); PHOSPHOROUS 2.2 mg/dL (2.5-4.9); SGOT/AST 24 U/L (15-37); SGPT/ALT 34 U/L (13-61); SODIUM 137 mmol/L (136-145); TOT PROT 6.3 g/dl (6.4-8.2)
--- NOTE | 2018-11-14 09:00 | PN ---
Progress Note, Physician Chief Complaint: on telemetry had some nausea earlier, better with zofran HR 95-125 - Current Medication List Current Medications: Active Medications Al Hydroxide/Mg Hydroxide (Mylanta Oral Suspension -) 30 ml PO Q24H PRN PRN Reason: DYSPEPSIA Last Admin: 11/13/18 18:22 Dose: 30 ml Amiodarone HCl (Cordarone -) 200 mg PO DAILY [facility] Last Admin: 11/13/18 10:04 Dose: 200 mg Aspirin (Asa -) 81 mg PO DAILY [facility] Last Admin: 11/13/18 10:03 Dose: 81 mg Atorvastatin Calcium (Lipitor -) 10 mg PO HS [facility] Last Admin: 11/13/18 21:42 Dose: 10 mg Clopidogrel Bisulfate (Plavix -) 75 mg PO DAILY [facility] Last Admin: 11/13/18 10:04 Dose: 75 mg Colchicine (Colcrys -) 0.6 mg PO BID [facility] Last Admin: 11/13/18 21:42 Dose: 0.6 mg Diltiazem HCl (Cardizem -) 30 mg PO Q6HPO [facility] Last Admin: 11/14/18 05:20 Dose: 30 mg Furosemide (Lasix -) 20 mg PO DAILY [facility] Last Admin: 11/13/18 10:03 Dose: 20 mg Hydrocortisone (Hytone 1% Cream -) 1 applic TP DAILY PRN PRN Reason: DRY SKIN Metoprolol Succinate (Toprol Xl -) 200 mg PO DAILY [facility] Last Admin: 11/13/18 10:04 Dose: 200 mg Non-Formulary Medication (Methenamine Hippurate) 1 gm PO BID [facility] Ondansetron HCl (Zofran Injection) 4 mg IVPUSH Q4H PRN PRN Reason: NAUSEA AND/OR VOMITING Last Admin: 11/13/18 00:27 Dose: 4 mg Pantoprazole Sodium (Protonix -) 40 mg PO DAILY [facility] Last Admin: 11/13/18 10:03 Dose: 40 mg Polyethylene Glycol (Miralax (For Daily Use) -) 17 gm PO BID [facility] Last Admin: 11/13/18 21:43 Dose: Not Given Simethicone (Mylicon -) 80 mg PO Q4H PRN PRN Reason: CONSTIPATION - Objective Vital Signs: Vital Signs Temperature 98.5 F 11/13/18 18:00 Pulse Rate 87 11/14/18 04:07 Respiratory Rate 25 H 11/14/18 04:07 Blood Pressure 95/82 11/14/18 04:07 O2 Sat by Pulse Oximetry (%) 99 11/13/18 20:21 Constitutional: Yes: No Distress, Calm Eyes: Yes: Conjunctiva Clear HENT: Yes: Atraumatic Neck: Yes: Supple Cardiovascular: Yes: Regular Rate and Rhythm Respiratory: Yes: CTA Bilaterally Gastrointestinal: Yes: Soft. No: Distention Genitourinary: No: CVA Tenderness - Left, CVA Tenderness - Right Musculoskeletal: No: Joint Stiffness, Joint Swelling Extremities: No: Cold, Cool, Cyanosis Edema: No Integumentary: No: Rash, Venous Stasis Changes Neurological: Yes: WNL, Alert, Oriented ...Motor Strength: WNL Psychiatric: Yes: WNL, Alert, Oriented. No: Agitated, Suicidal Ideation Labs: CBC, BMP 11/14/18 05:15 11/14/18 05:15 INR, PTT INR 1.10 (0.83-1.09) H 11/08/18 14:05 - ....Imaging Other: Report Reviewed Assessment/Plan 88F with HTN, HL, afib, PPM for vasodepressive syncope , s/p recurrent vaso- vagal episode, tachycardia and hypotension; improved now H/O: Vasodepressive syncope s/p PPM; aortic stenosis-severe Lactic acidosis; pericarditis; CHF-diastolic dysfunction CAD s/p cath and recent AGUEDA GERD, ANTONY/CRF Pulmonary HTN; mitral insufficiency neurogenic bladder lumbago; spinal stenosis; MGUS; osteoarthritis; hypothyroidism Plan: -cont BB and CCB, space dosing, HR target as per Cardiology -cont ASA, Plavix statin -zofran IV prn for nausea, GI f/u -telemetry monitoring -protonix, scd for DVT PFX -falls, decubs PFX -OOB to chair ; PT rehab for PT; pt agreed with SNF - to be transferred to NH/ SNF when cleared by carddiology prognosis guarded;
[2018-11-14] MEDS: AMIODARONE HCL 200 MG TABLET (FP) PO SCH (09:04)
[2018-11-14] MEDS: FUROSEMIDE 40 MG TABLET (FP) PO SCH (09:04)
[2018-11-14] MEDS: COLCHICINE 0.6 MG TABLET (FP) PO SCH ×2 (09:04→21:16)
[2018-11-14] MEDS: CLOPIDOGREL BISULFATE 75 MG TABLET (FP) PO SCH (09:04)
[2018-11-14] MEDS: ASPIRIN 81 MG CHEWABLE TABLETS PO SCH (09:05)
[2018-11-14] MEDS: POLYETHYLENE GLYCOL 3350 119 GM BTL PO SCH ×2 (09:11→21:17)
--- NOTE | 2018-11-14 10:01 | PN ---
Progress Note (short form) - Note Progress Note: Patient seen and examined in ICU. Feels overall better. Denies CP or SOB. No dizziness or further syncopal episodes. Intake & Output 11/11/18 11/12/18 11/13/18 11/14/18 23:59 23:59 23:59 23:59 Intake Total 534 500 660 Balance 534 500 660 Weight 144 lb 3.2 oz 147 lb Last Vital Signs Temp Pulse Resp BP Pulse Ox 98.5 F 87 25 H 95/82 99 11/13/18 18:00 11/14/18 04:07 11/14/18 04:07 11/14/18 04:07 11/13/18 20:21 Active Medications Al Hydroxide/Mg Hydroxide (Mylanta Oral Suspension -) 30 ml PO Q24H PRN PRN Reason: DYSPEPSIA Last Admin: 11/13/18 18:22 Dose: 30 ml Amiodarone HCl (Cordarone -) 200 mg PO DAILY [facility] Last Admin: 11/14/18 09:04 Dose: 200 mg Aspirin (Asa -) 81 mg PO DAILY [facility] Last Admin: 11/14/18 09:05 Dose: 81 mg Atorvastatin Calcium (Lipitor -) 10 mg PO HS [facility] Last Admin: 11/13/18 21:42 Dose: 10 mg Clopidogrel Bisulfate (Plavix -) 75 mg PO DAILY [facility] Last Admin: 11/14/18 09:04 Dose: 75 mg Colchicine (Colcrys -) 0.6 mg PO BID [facility] Last Admin: 11/14/18 09:04 Dose: 0.6 mg Diltiazem HCl (Cardizem -) 30 mg PO Q6HPO [facility] Last Admin: 11/14/18 05:20 Dose: 30 mg Furosemide (Lasix -) 20 mg PO DAILY [facility] Last Admin: 11/14/18 09:04 Dose: 20 mg Hydrocortisone (Hytone 1% Cream -) 1 applic TP DAILY PRN PRN Reason: DRY SKIN Metoprolol Succinate (Toprol Xl -) 200 mg PO DAILY [facility] Last Admin: 11/14/18 09:04 Dose: 200 mg Non-Formulary Medication (Methenamine Hippurate) 1 gm PO BID [facility] Ondansetron HCl (Zofran Injection) 4 mg IVPUSH Q4H PRN PRN Reason: NAUSEA AND/OR VOMITING Last Admin: 11/13/18 00:27 Dose: 4 mg Pantoprazole Sodium (Protonix -) 40 mg PO DAILY [facility] Last Admin: 11/13/18 10:03 Dose: 40 mg Polyethylene Glycol (Miralax (For Daily Use) -) 17 gm PO BID [facility] Last Admin: 11/14/18 09:11 Dose: Not Given Simethicone (Mylicon -) 80 mg PO Q4H PRN PRN Reason: CONSTIPATION PE: Constitutional: Yes: awake, alert, no distress Eyes: Yes: Conjunctiva Clear, EOM Intact HENT: Yes: Atraumatic, Normocephalic Neck: Yes: Supple, Trachea Midline Cardiovascular: Yes: Afib, 3/6 systolic LSB murmur Respiratory: Yes: few basilar rhonchi Gastrointestinal: Yes: Soft, +BS, no pain Integumentary: Yes: warm dry Extremities: trace edema Laboratory Results - last 24 hr 11/14/18 11/14/18 05:15 05:15 WBC 5.7 RBC 3.14 L Hgb 9.6 L Hct 29.9 L MCV 95.3 MCH 30.7 MCHC 32.2 RDW 15.2 Plt Count 170 MPV 8.6 Absolute Neuts (auto) 4.1 Neutrophils % 72.1 Lymphocytes % 11.6 D Monocytes % 12.6 H Eosinophils % 2.5 Basophils % 1.2 Nucleated RBC % 0 Sodium 137 Potassium 4.0 Chloride 103 Carbon Dioxide 27 Anion Gap 7 L BUN 18 Creatinine 0.9 Creat Clearance w eGFR 58.95 Random Glucose 94 Calcium 8.2 L Phosphorus 2.2 L Magnesium 1.7 L Total Bilirubin 0.6 AST 24 ALT 34 Alkaline Phosphatase 138 H Total Protein 6.3 L Albumin 2.4 L Assessment/Plan Recurrent Vasodepressive syncope S/P PPM Severe aortic stenosis Lactic acidosis (?) Pericarditis CHF-diastolic dysfunction GERD CAD s/p cath and recent AGUEDA ANTONY Pulmonary HTN mitral insufficiency neurogenic bladder lumbago spinal stenosis osteoarthritis hypothyroidism Plan: -Rate control meds per Cardiology -continue ASA, Plavix -Statin -PPI -OOB to chair -Cardiac Telemetry monitoring Dr Cabello
--- NOTE | 2018-11-14 11:13 | PN ---
Progress Note (short form) - Note Progress Note: PULMONARY Some nausea this AM but no further syncope, dizziness. No shortness of breath or chest pain. Vital Signs Period Temp Pulse Resp BP Sys/Rolon Pulse Ox Last 24 Hr 97.5 F-98.5 F 87-115 18-34 90-114/58-87 99 Gen: NAD at rest Heart: irregular Lung: decreased breath sounds at the bases Abd: soft, nontender Ext: no edema CBC, BMP 11/14/18 05:15 11/14/18 05:15 Active Medications Al Hydroxide/Mg Hydroxide (Mylanta Oral Suspension -) 30 ml PO Q24H PRN PRN Reason: DYSPEPSIA Last Admin: 11/13/18 18:22 Dose: 30 ml Amiodarone HCl (Cordarone -) 200 mg PO DAILY [facility] Last Admin: 11/14/18 09:04 Dose: 200 mg Aspirin (Asa -) 81 mg PO DAILY [facility] Last Admin: 11/14/18 09:05 Dose: 81 mg Atorvastatin Calcium (Lipitor -) 10 mg PO HS [facility] Last Admin: 11/13/18 21:42 Dose: 10 mg Clopidogrel Bisulfate (Plavix -) 75 mg PO DAILY [facility] Last Admin: 11/14/18 09:04 Dose: 75 mg Colchicine (Colcrys -) 0.6 mg PO BID [facility] Last Admin: 11/14/18 09:04 Dose: 0.6 mg Diltiazem HCl (Cardizem -) 30 mg PO Q6HPO [facility] Last Admin: 11/14/18 05:20 Dose: 30 mg Furosemide (Lasix -) 20 mg PO DAILY [facility] Last Admin: 11/14/18 09:04 Dose: 20 mg Hydrocortisone (Hytone 1% Cream -) 1 applic TP DAILY PRN PRN Reason: DRY SKIN Metoprolol Succinate (Toprol Xl -) 200 mg PO DAILY [facility] Last Admin: 11/14/18 09:04 Dose: 200 mg Non-Formulary Medication (Methenamine Hippurate) 1 gm PO BID [facility] Ondansetron HCl (Zofran Injection) 4 mg IVPUSH Q4H PRN PRN Reason: NAUSEA AND/OR VOMITING Last Admin: 11/13/18 00:27 Dose: 4 mg Pantoprazole Sodium (Protonix -) 40 mg PO DAILY [facility] Last Admin: 11/13/18 10:03 Dose: 40 mg Polyethylene Glycol (Miralax (For Daily Use) -) 17 gm PO BID [facility] Last Admin: 11/14/18 09:11 Dose: Not Given Simethicone (Mylicon -) 80 mg PO Q4H PRN PRN Reason: CONSTIPATION A/P Syncope Acute on Chronic Diastolic Heart Failure Severe Aortic Stenosis Atrial Fibrillation with RVR CAD HTN Hyperlipidemia Hypothyroidism - rate control - anticoagulation per cardiology - continue lasix - monitor urine output, creatinine - antiemetics
[2018-11-14] MEDS: ONDANSETRON 4 MG/2 ML VIAL IVPUSH PRN (11:21)
[2018-11-14] MEDS: PANTOPRAZOLE 40 MG TABLET (FP) PO SCH (11:21)
--- NOTE | 2018-11-14 12:14 | PN ---
Progress Note, Physician Chief Complaint: Mild nausea and some diarrhea Persistent AF with variable HR History of Present Illness: Patient was seen and examined. Awake and alert. Chart was reviewed Denies chest pain or SOB - Current Medication List Current Medications: Active Medications Al Hydroxide/Mg Hydroxide (Mylanta Oral Suspension -) 30 ml PO Q24H PRN PRN Reason: DYSPEPSIA Last Admin: 11/13/18 18:22 Dose: 30 ml Amiodarone HCl (Cordarone -) 200 mg PO DAILY [facility] Last Admin: 11/14/18 09:04 Dose: 200 mg Aspirin (Asa -) 81 mg PO DAILY [facility] Last Admin: 11/14/18 09:05 Dose: 81 mg Atorvastatin Calcium (Lipitor -) 10 mg PO HS [facility] Last Admin: 11/13/18 21:42 Dose: 10 mg Clopidogrel Bisulfate (Plavix -) 75 mg PO DAILY [facility] Last Admin: 11/14/18 09:04 Dose: 75 mg Colchicine (Colcrys -) 0.6 mg PO BID [facility] Last Admin: 11/14/18 09:04 Dose: 0.6 mg Diltiazem HCl (Cardizem -) 30 mg PO Q6HPO [facility] Last Admin: 11/14/18 05:20 Dose: 30 mg Furosemide (Lasix -) 20 mg PO DAILY [facility] Last Admin: 11/14/18 09:04 Dose: 20 mg Hydrocortisone (Hytone 1% Cream -) 1 applic TP DAILY PRN PRN Reason: DRY SKIN Metoprolol Succinate (Toprol Xl -) 200 mg PO DAILY [facility] Last Admin: 11/14/18 09:04 Dose: 200 mg Non-Formulary Medication (Methenamine Hippurate) 1 gm PO BID [facility] Ondansetron HCl (Zofran Injection) 4 mg IVPUSH Q4H PRN PRN Reason: NAUSEA AND/OR VOMITING Last Admin: 11/14/18 11:21 Dose: 4 mg Pantoprazole Sodium (Protonix -) 40 mg PO DAILY [facility] Last Admin: 11/14/18 11:21 Dose: 40 mg Polyethylene Glycol (Miralax (For Daily Use) -) 17 gm PO BID [facility] Last Admin: 11/14/18 09:11 Dose: Not Given Simethicone (Mylicon -) 80 mg PO Q4H PRN PRN Reason: CONSTIPATION - Objective Vital Signs: Vital Signs Temperature 98.5 F 11/13/18 18:00 Pulse Rate 101 H 11/14/18 09:00 Respiratory Rate 20 11/14/18 09:00 Blood Pressure 111/79 11/14/18 09:00 O2 Sat by Pulse Oximetry (%) 99 11/14/18 09:00 HENT: Yes: Atraumatic Neck: Yes: Supple Cardiovascular: Yes: Pulse Irregular, Murmur (ELIZABETH), S1, S2 Respiratory: Yes: CTA Bilaterally Gastrointestinal: Yes: Normal Bowel Sounds, Soft. No: Tenderness Edema: No Additional Findings/Remarks: - Review of Systems Constitutional: denies: Chills, Fever Cardiovascular: denies: Palpitations. denies: Chest Pain, Shortness of Breath Respiratory: denies: Cough, Hemoptysis, Orthopnea, PND, SOB, SOB on Exertion Gastrointestinal: denies: Abdominal Pain, Melena, (+) Nausea, denies: Rectal Bleeding, Vomiting Genitourinary: denies: Dysuria, Hematuria Musculoskeletal: denies: Back Pain, Joint Pain Neurological: denies: Dizziness. denies: Change in Speech, Headache, Numbness, Parasthesia, Seizure, Syncope Labs: CBC, BMP 11/14/18 05:15 11/14/18 05:15 Problem List - Problems (1) Anemia Code(s): D64.9 - ANEMIA, UNSPECIFIED (2) Atrial fibrillation Code(s): I48.91 - UNSPECIFIED ATRIAL FIBRILLATION Qualifiers: Atrial fibrillation type: persistent Qualified Code(s): I48.1 - Persistent atrial fibrillation (3) CHF (congestive heart failure) Code(s): I50.9 - HEART FAILURE, UNSPECIFIED (4) Diastolic CHF Code(s): I50.30 - UNSPECIFIED DIASTOLIC (CONGESTIVE) HEART FAILURE (5) Ischemic colitis Code(s): K55.9 - VASCULAR DISORDER OF INTESTINE, UNSPECIFIED (6) Partial bowel obstruction Code(s): K56.600 - PARTIAL INTESTINAL OBSTRUCTION, UNSPECIFIED TO CAUSE (7) S/P coronary artery stent placement Code(s): Z95.5 - PRESENCE OF CORONARY ANGIOPLASTY IMPLANT AND GRAFT (8) History of pacemaker Code(s): Z95.0 - PRESENCE OF CARDIAC PACEMAKER (9) Hyperlipidemia Code(s): E78.5 - HYPERLIPIDEMIA, UNSPECIFIED Qualifiers: Hyperlipidemia type: pure hypercholesterolemia Qualified Code(s): E78.00 - Pure hypercholesterolemia, unspecified (10) Hypertension Code(s): I10 - ESSENTIAL (PRIMARY) HYPERTENSION Qualifiers: Hypertension type: essential hypertension Qualified Code(s): I10 - Essential (primary) hypertension (11) Hypothyroidism Code(s): E03.9 - HYPOTHYROIDISM, UNSPECIFIED Qualifiers: Hypothyroidism type: unspecified Qualified Code(s): E03.9 - Hypothyroidism , unspecified (12) MGUS (monoclonal gammopathy of unknown significance) Code(s): D47.2 - MONOCLONAL GAMMOPATHY (13) Severe aortic stenosis Code(s): I35.0 - NONRHEUMATIC AORTIC (VALVE) STENOSIS Assessment/Plan 1. Acute on chronic class II NYHA classification LV failure related to diastolic LV dysfunction 2. Severe aortic valve stenosis 3. Persistent atrial fibrillation with RVR 4. CAD s/p rotational atherectomy and AGUEDA LAD angina pectoris 5. Post coronary perforation pericarditis 6. 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 HTN/HCVD 8. Hyperlipidemia 9. Hypothyroidism 10. Acute on CKD 11. Retained stones post cholecystectomy with biliary duct dilatation post therapeutic ERCP/sphincterotomy and biliary stent 12. History of schatzki ring dilation 13. MGUS 14. Hyponatremia PLAN: 1. Continue Furosemide 20 mg QD 2. Continue Amiodarone 200 mg QD, ASA 81 mg QD, Plavix 75 mg QD and Toprol XL 200 mg QD. Continue Cardizem for rate control and titrate dose (keep HR < 100) 3. Continue Lipitor 10 mg QHS, Colchicine 0.6 mg BID and Losartan 25 mg QD and follow renal function 4. Anticoagulation held due to recent pericarditis and effusion, but to assess when to restart 5. Further GI evaluation as outpatient then TAVR evaluation to follow Further plans are to follow Alejandro Elise MD
[2018-11-14] MEDS: ATORVASTATIN CA 10 MG TABLET (FP) PO SCH (21:16)
[2018-11-14] MEDS: MAG HYDROX/AL HYDROX/SIMETH 30 ML UNIT-DOSE CUP PO PRN (22:41)
[2018-11-15] MEDS: dilTIAZem HCL 30 MG TABLET (FP) PO SCH ×4 (05:59→23:30)
[2018-11-15 06:42] LABS: BASO % 1.2 % (0-2.0); EOS % 2.5 % (0-4.5); HEMATOCRIT 29.5 % (32.4-45.2); HEMOGLOBIN 9.6 GM/dL (10.7-15.3); LYMPH % 12.5 % (8-40); MCH 30.8 pg (25.7-33.7); MCHC 32.7 g/dl (32.0-36.0); MEAN PLT VOLUME 8.9 fl (7.5-11.1); MONO % 13.4 % (3.8-10.2); NEUT % 70.4 % (42.8-82.8); PLATELET COUNT 171 K/MM3 (134-434); RBC 3.13 M/mm3 (3.60-5.2); RDW 15.1 % (11.6-15.6); WHITE BLOOD COUNT 5.6 K/mm3 (4.0-10.0)
[2018-11-15 07:11] LABS: ALBUMIN 2.4 g/dl (3.4-5.0); ALK PHOS 142 U/L (45-117); ANION GAP 8 MMOL/L (8-16); BILIRUBIN,TOTAL 0.6 mg/dL (0.2-1); BLOOD UREA NITROGEN 19 mg/dL (7-18); CALCIUM 8.4 mg/dL (8.5-10.1); CHLORIDE 100 mmol/L (98-107); CO2 27 mmol/L (21-32); CREATININE 0.9 mg/dL (0.55-1.3); GLUCOSE,RANDOM 95 mg/dL (74-106); POTASSIUM 4.2 mmol/L (3.5-5.1); SGOT/AST 25 U/L (15-37); SGPT/ALT 33 U/L (13-61); SODIUM 136 mmol/L (136-145); TOT PROT 6.3 g/dl (6.4-8.2)
[2018-11-15] MEDS: ONDANSETRON 4 MG/2 ML VIAL IVPUSH PRN (08:10)
--- NOTE | 2018-11-15 08:59 | PN ---
Progress Note, Physician Chief Complaint: Mild nausea and some diarrhea still Persistent AF with variable HR History of Present Illness: Patient was seen and examined. Awake and alert. Chart was reviewed Denies chest pain or SOB - Current Medication List Current Medications: Active Medications Al Hydroxide/Mg Hydroxide (Mylanta Oral Suspension -) 30 ml PO Q24H PRN PRN Reason: DYSPEPSIA Last Admin: 11/14/18 22:41 Dose: 30 ml Amiodarone HCl (Cordarone -) 200 mg PO DAILY [facility]PLACED BY [facility] Last Admin: 11/14/18 09:04 Dose: 200 mg Aspirin (Asa -) 81 mg PO DAILY [facility] BY [facility] Last Admin: 11/14/18 09:05 Dose: 81 mg Atorvastatin Calcium (Lipitor -) 10 mg PO HS [facility]PLACED BY [facility] Last Admin: 11/14/18 21:16 Dose: 10 mg Clopidogrel Bisulfate (Plavix -) 75 mg PO DAILY [facility] BY [facility] Last Admin: 11/14/18 09:04 Dose: 75 mg Colchicine (Colcrys -) 0.6 mg PO BID [facility] BY [facility] Last Admin: 11/14/18 21:16 Dose: Not Given Diltiazem HCl (Cardizem -) 30 mg PO Q6HPO REPLACED BY [facility] Last Admin: 11/15/18 05:59 Dose: 30 mg Furosemide (Lasix -) 20 mg PO DAILY [facility] Last Admin: 11/14/18 09:04 Dose: 20 mg Hydrocortisone (Hytone 1% Cream -) 1 applic TP DAILY PRN PRN Reason: DRY SKIN Metoprolol Succinate (Toprol Xl -) 200 mg PO DAILY [facility]PL[facility]ED BY [facility] Last Admin: 11/14/18 09:04 Dose: 200 mg Ondansetron HCl (Zofran Injection) 4 mg IVPUSH Q4H PRN PRN Reason: NAUSEA AND/OR VOMITING Last Admin: 11/15/18 08:10 Dose: 4 mg Pantoprazole Sodium (Protonix -) 40 mg PO DAILY [facility]PL[facility] BY [facility] Last Admin: 11/14/18 11:21 Dose: 40 mg Polyethylene Glycol (Miralax (For Daily Use) -) 17 gm PO BID [facility]PL[facility]ED BY [facility] Last Admin: 11/14/18 21:17 Dose: Not Given Simethicone (Mylicon -) 80 mg PO Q4H PRN PRN Reason: CONSTIPATION - Objective Vital Signs: Vital Signs Temperature 97 F L 11/15/18 05:37 Pulse Rate 85 11/15/18 05:37 Respiratory Rate 20 11/15/18 05:37 Blood Pressure 93/70 11/15/18 05:37 O2 Sat by Pulse Oximetry (%) 96 11/14/18 20:19 Eyes: Yes: PERRL HENT: Yes: Atraumatic Neck: Yes: Supple Cardiovascular: Yes: Pulse Irregular, Murmur (ELIZABETH), S1, S2 Respiratory: Yes: CTA Bilaterally Gastrointestinal: Yes: Normal Bowel Sounds, Soft. No: Tenderness Edema: No Additional Findings/Remarks: - Review of Systems Constitutional: denies: Chills, Fever Cardiovascular: denies: Palpitations. denies: Chest Pain, Shortness of Breath Respiratory: denies: Cough, Hemoptysis, Orthopnea, PND, SOB, SOB on Exertion Gastrointestinal: denies: Abdominal Pain, Melena, (+) Nausea, denies: Rectal Bleeding, Vomiting Genitourinary: denies: Dysuria, Hematuria Musculoskeletal: denies: Back Pain, Joint Pain Neurological: denies: Dizziness. denies: Change in Speech, Headache, Numbness, Parasthesia, Seizure, Syncope Labs: CBC, BMP 11/15/18 05:30 11/15/18 05:30 INR, PTT INR 1.10 (0.83-1.09) H 11/08/18 14:05 Problem List - Problems (1) Anemia Code(s): D64.9 - ANEMIA, UNSPECIFIED (2) Atrial fibrillation Code(s): I48.91 - UNSPECIFIED ATRIAL FIBRILLATION Qualifiers: Atrial fibrillation type: persistent Qualified Code(s): I48.1 - Persistent atrial fibrillation (3) CHF (congestive heart failure) Code(s): I50.9 - HEART FAILURE, UNSPECIFIED (4) Diastolic CHF Code(s): I50.30 - UNSPECIFIED DIASTOLIC (CONGESTIVE) HEART FAILURE (5) Ischemic colitis Code(s): K55.9 - VASCULAR DISORDER OF INTESTINE, UNSPECIFIED (6) Partial bowel obstruction Code(s): K56.600 - PARTIAL INTESTINAL OBSTRUCTION, UNSPECIFIED TO CAUSE (7) S/P coronary artery stent placement Code(s): Z95.5 - PRESENCE OF CORONARY ANGIOPLASTY IMPLANT AND GRAFT (8) History of pacemaker Code(s): Z95.0 - PRESENCE OF CARDIAC PACEMAKER (9) Hyperlipidemia Code(s): E78.5 - HYPERLIPIDEMIA, UNSPECIFIED Qualifiers: Hyperlipidemia type: pure hypercholesterolemia Qualified Code(s): E78.00 - Pure hypercholesterolemia, unspecified (10) Hypertension Code(s): I10 - ESSENTIAL (PRIMARY) HYPERTENSION Qualifiers: Hypertension type: essential hypertension Qualified Code(s): I10 - Essential (primary) hypertension (11) Hypothyroidism Code(s): E03.9 - HYPOTHYROIDISM, UNSPECIFIED Qualifiers: Hypothyroidism type: unspecified Qualified Code(s): E03.9 - Hypothyroidism , unspecified (12) MGUS (monoclonal gammopathy of unknown significance) Code(s): D47.2 - MONOCLONAL GAMMOPATHY (13) Severe aortic stenosis Code(s): I35.0 - NONRHEUMATIC AORTIC (VALVE) STENOSIS Assessment/Plan 1. Acute on chronic class II NYHA classification LV failure related to diastolic LV dysfunction 2. Severe aortic valve stenosis 3. Persistent atrial fibrillation with RVR 4. CAD s/p rotational atherectomy and AGUEDA LAD angina pectoris 5. Post coronary perforation pericarditis 6. 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 HTN/HCVD 8. Hyperlipidemia 9. Hypothyroidism 10. Acute on CKD 11. Retained stones post cholecystectomy with biliary duct dilatation post therapeutic ERCP/sphincterotomy and biliary stent 12. History of schatzki ring dilation 13. MGUS 14. Hyponatremia PLAN: 1. Continue Furosemide 20 mg QD 2. Continue Amiodarone 200 mg QD, Plavix 75 mg QD and Toprol XL 200 mg QD. Continue Cardizem for rate control and titrate dose (keep HR < 100) 3. Continue Lipitor 10 mg QHS and Losartan 25 mg QD and follow renal function. After review of medical records, will discontinue Colchicine since she has been on it for more than 2 weeks including when she was at [facility] 4. Anticoagulation held due to recent pericarditis and effusion, but may be able to restart it. Once Coumadin is restarted, may discontinue ASA 5. Consider CARLI +/- synchronized cardioversion tomorrow. Keep NPO 6. Further GI evaluation as outpatient then TAVR evaluation to follow Further plans are to follow Alejandro Elise MD
[2018-11-15] MEDS: ASPIRIN 81 MG CHEWABLE TABLETS PO SCH (09:50)
[2018-11-15] MEDS: AMIODARONE HCL 200 MG TABLET (FP) PO SCH (09:50)
[2018-11-15] MEDS: FUROSEMIDE 40 MG TABLET (FP) PO SCH (09:51)
[2018-11-15] MEDS: CLOPIDOGREL BISULFATE 75 MG TABLET (FP) PO SCH (09:52)
[2018-11-15] MEDS: PANTOPRAZOLE 40 MG TABLET (FP) PO SCH (09:53)
--- NOTE | 2018-11-15 10:29 | PN ---
Progress Note, Physician Chief Complaint: has again diarrhea and some nausea is on colchicine (started by cardiology at [place]) will stop it; can use allopurinol instead for gout PFX - Current Medication List Current Medications: Active Medications Al Hydroxide/Mg Hydroxide (Mylanta Oral Suspension -) 30 ml PO Q24H PRN PRN Reason: DYSPEPSIA Last Admin: 11/14/18 22:41 Dose: 30 ml Amiodarone HCl (Cordarone -) 200 mg PO DAILY [facility] Last Admin: 11/15/18 09:50 Dose: 200 mg Aspirin (Asa -) 81 mg PO DAILY [facility] Last Admin: 11/15/18 09:50 Dose: 81 mg Atorvastatin Calcium (Lipitor -) 10 mg PO HS [facility] Last Admin: 11/14/18 21:16 Dose: 10 mg Clopidogrel Bisulfate (Plavix -) 75 mg PO DAILY [facility] Last Admin: 11/15/18 09:52 Dose: 75 mg Colchicine (Colcrys -) 0.6 mg PO BID [facility] Last Admin: 11/14/18 21:16 Dose: Not Given Diltiazem HCl (Cardizem -) 30 mg PO Q6HPO [facility] Last Admin: 11/15/18 05:59 Dose: 30 mg Furosemide (Lasix -) 20 mg PO DAILY [facility] Last Admin: 11/15/18 09:51 Dose: 20 mg Hydrocortisone (Hytone 1% Cream -) 1 applic TP DAILY PRN PRN Reason: DRY SKIN Metoprolol Succinate (Toprol Xl -) 200 mg PO DAILY [facility] Last Admin: 11/15/18 09:51 Dose: 200 mg Ondansetron HCl (Zofran Injection) 4 mg IVPUSH Q4H PRN PRN Reason: NAUSEA AND/OR VOMITING Last Admin: 11/15/18 08:10 Dose: 4 mg Pantoprazole Sodium (Protonix -) 40 mg PO DAILY [facility] Last Admin: 11/15/18 09:53 Dose: 40 mg Polyethylene Glycol (Miralax (For Daily Use) -) 17 gm PO BID [facility] Last Admin: 11/14/18 21:17 Dose: Not Given Simethicone (Mylicon -) 80 mg PO Q4H PRN PRN Reason: CONSTIPATION - Objective Vital Signs: Vital Signs Temperature 97 F L 11/15/18 05:37 Pulse Rate 85 11/15/18 05:37 Respiratory Rate 20 11/15/18 05:37 Blood Pressure 93/70 11/15/18 05:37 O2 Sat by Pulse Oximetry (%) 96 11/14/18 20:19 Constitutional: Yes: No Distress, Calm Eyes: Yes: Conjunctiva Clear HENT: Yes: Atraumatic Neck: Yes: Supple Cardiovascular: Yes: Regular Rate and Rhythm Respiratory: Yes: CTA Bilaterally Gastrointestinal: Yes: Soft. No: Distention Genitourinary: No: Hematuria Musculoskeletal: No: Joint Stiffness, Joint Swelling Extremities: No: Cold, Cool Edema: No Integumentary: No: Rash, Venous Stasis Changes Neurological: Yes: WNL, Alert, Oriented ...Motor Strength: WNL Psychiatric: Yes: WNL, Alert, Oriented. No: Agitated Labs: CBC, BMP 11/15/18 05:30 11/15/18 05:30 INR, PTT INR 1.10 (0.83-1.09) H 11/08/18 14:05 - ....Imaging Other: Report Reviewed Assessment/Plan 88F with HTN, HL, afib, PPM for vasodepressive syncope , s/p recurrent vaso- vagal episode, tachycardia and hypotension; improved now H/O: Vasodepressive syncope s/p PPM; aortic stenosis-severe Lactic acidosis; pericarditis; CHF-diastolic dysfunction CAD s/p cath and recent AGUEDA GERD, ANTONY/CRF Pulmonary HTN; mitral insufficiency neurogenic bladder lumbago; spinal stenosis; MGUS; osteoarthritis; hypothyroidism Plan: -cont BB and CCB, space dosing, HR target as per Cardiology -cont ASA, Plavix statin -zofran IV prn for nausea, GI f/u - DC colchicine, start low dose allopurinol -telemetry monitoring -protonix, scd for DVT PFX -falls, decubs PFX -OOB to chair ; PT rehab for PT; pt agreed with SNF - to be transferred to NH/ SNF when cleared by carddiology prognosis guarded;
--- NOTE | 2018-11-15 10:42 | PN ---
Progress Note, Physician History of Present Illness: pulmonary alert,feeling better,- c/o sob,-cp. pt c/o nausea,diarrhea - Current Medication List Current Medications: Active Medications Al Hydroxide/Mg Hydroxide (Mylanta Oral Suspension -) 30 ml PO Q24H PRN PRN Reason: DYSPEPSIA Last Admin: 11/14/18 22:41 Dose: 30 ml Amiodarone HCl (Cordarone -) 200 mg PO DAILY [facility] Last Admin: 11/15/18 09:50 Dose: 200 mg Aspirin (Asa -) 81 mg PO DAILY [facility] Last Admin: 11/15/18 09:50 Dose: 81 mg Atorvastatin Calcium (Lipitor -) 10 mg PO HS [facility] Last Admin: 11/14/18 21:16 Dose: 10 mg Clopidogrel Bisulfate (Plavix -) 75 mg PO DAILY [facility] Last Admin: 11/15/18 09:52 Dose: 75 mg Colchicine (Colcrys -) 0.6 mg PO BID [facility] Last Admin: 11/14/18 21:16 Dose: Not Given Diltiazem HCl (Cardizem -) 30 mg PO Q6HPO [facility] Last Admin: 11/15/18 05:59 Dose: 30 mg Furosemide (Lasix -) 20 mg PO DAILY [facility] Last Admin: 11/15/18 09:51 Dose: 20 mg Hydrocortisone (Hytone 1% Cream -) 1 applic TP DAILY PRN PRN Reason: DRY SKIN Metoprolol Succinate (Toprol Xl -) 200 mg PO DAILY [facility] Last Admin: 11/15/18 09:51 Dose: 200 mg Ondansetron HCl (Zofran Injection) 4 mg IVPUSH Q4H PRN PRN Reason: NAUSEA AND/OR VOMITING Last Admin: 11/15/18 08:10 Dose: 4 mg Pantoprazole Sodium (Protonix -) 40 mg PO DAILY [facility] Last Admin: 11/15/18 09:53 Dose: 40 mg Polyethylene Glycol (Miralax (For Daily Use) -) 17 gm PO BID [facility] Last Admin: 11/14/18 21:17 Dose: Not Given Simethicone (Mylicon -) 80 mg PO Q4H PRN PRN Reason: CONSTIPATION - Objective Vital Signs: Vital Signs Temperature 97 F L 11/15/18 05:37 Pulse Rate 85 11/15/18 05:37 Respiratory Rate 20 11/15/18 05:37 Blood Pressure 93/70 11/15/18 05:37 O2 Sat by Pulse Oximetry (%) 96 11/14/18 20:19 Constitutional: Yes: Well Nourished, Calm Eyes: Yes: WNL HENT: Yes: WNL Neck: Yes: WNL Cardiovascular: Yes: Pulse Irregular, S1, S2 Respiratory: Yes: Rales (crackles r base) Gastrointestinal: Yes: Normal Bowel Sounds, Soft Extremities: Yes: WNL Edema: No Labs: CBC, BMP 11/15/18 05:30 11/15/18 05:30 INR, PTT INR 1.10 (0.83-1.09) H 11/08/18 14:05 Problem List - Problems (1) Atrial fibrillation Code(s): I48.91 - UNSPECIFIED ATRIAL FIBRILLATION Qualifiers: Atrial fibrillation type: persistent Qualified Code(s): I48.1 - Persistent atrial fibrillation (2) Diastolic CHF Code(s): I50.30 - UNSPECIFIED DIASTOLIC (CONGESTIVE) HEART FAILURE (3) S/P coronary artery stent placement Code(s): Z95.5 - PRESENCE OF CORONARY ANGIOPLASTY IMPLANT AND GRAFT (4) CHF exacerbation Code(s): I50.9 - HEART FAILURE, UNSPECIFIED Qualifiers: Heart failure type: diastolic Qualified Code(s): I50.33 - Acute on chronic diastolic (congestive) heart failure (5) History of pacemaker Code(s): Z95.0 - PRESENCE OF CARDIAC PACEMAKER (6) Hypertension Code(s): I10 - ESSENTIAL (PRIMARY) HYPERTENSION Qualifiers: Hypertension type: essential hypertension Qualified Code(s): I10 - Essential (primary) hypertension (7) Severe aortic stenosis Code(s): I35.0 - NONRHEUMATIC AORTIC (VALVE) STENOSIS (8) Syncope Code(s): R55 - SYNCOPE AND COLLAPSE Assessment/Plan A/P Syncope Acute on Chronic Diastolic Heart Failure Severe Aortic Stenosis Atrial Fibrillation with RVR CAD HTN Hyperlipidemia Hypothyroidism - rate control as per cardiology - anticoagulation per cardiology - lasix - monitor urine output, creatinine - antiemetics DR GALAN
--- NOTE | 2018-11-15 12:09 | PN ---
GI Progress Note Subjective: GI Note: Chyna is now experiencing diarrhea. Will cut back in Miralax. Also has nausea but is tolerating her diet. - Objective Vital Signs: Vital Signs Temperature 97.7 F 11/15/18 09:00 Pulse Rate 108 H 11/15/18 09:00 Respiratory Rate 20 11/15/18 09:00 Blood Pressure 114/70 11/15/18 09:00 O2 Sat by Pulse Oximetry (%) 96 11/15/18 09:00 CBC,CMP WBC 5.6 K/mm3 (4.0-10.0) 11/15/18 05:30 RBC 3.13 M/mm3 (3.60-5.2) L 11/15/18 05:30 Hgb 9.6 GM/dL (10.7-15.3) L 11/15/18 05:30 Hct 29.5 % (32.4-45.2) L 11/15/18 05:30 MCV 94.0 fl (80-96) 11/15/18 05:30 MCH 30.8 pg (25.7-33.7) 11/15/18 05:30 MCHC 32.7 g/dl (32.0-36.0) 11/15/18 05:30 RDW 15.1 % (11.6-15.6) 11/15/18 05:30 Plt Count 171 K/MM3 (134-434) 11/15/18 05:30 MPV 8.9 fl (7.5-11.1) 11/15/18 05:30 Absolute Neuts (auto) 3.9 K/mm3 (1.5-8.0) 11/15/18 05:30 Neutrophils % 70.4 % (42.8-82.8) 11/15/18 05:30 Lymphocytes % 12.5 % (8-40) 11/15/18 05:30 Monocytes % 13.4 % (3.8-10.2) H 11/15/18 05:30 Eosinophils % 2.5 % (0-4.5) 11/15/18 05:30 Basophils % 1.2 % (0-2.0) 11/15/18 05:30 Nucleated RBC % 0 % (0-0) 11/15/18 05:30 Sodium 136 mmol/L (136-145) 11/15/18 05:30 Potassium 4.2 mmol/L (3.5-5.1) 11/15/18 05:30 Chloride 100 mmol/L (98-107) 11/15/18 05:30 Carbon Dioxide 27 mmol/L (21-32) 11/15/18 05:30 Anion Gap 8 MMOL/L (8-16) 11/15/18 05:30 BUN 19 mg/dL (7-18) H 11/15/18 05:30 Creatinine 0.9 mg/dL (0.55-1.3) 11/15/18 05:30 Creat Clearance w eGFR 58.95 (>60) 11/15/18 05:30 POC Glucometer 113.65314 UNITS (80-120) 11/12/18 05:26 Random Glucose 95 mg/dL (74-106) 11/15/18 05:30 Lactic Acid 1.3 mmol/L (0.4-2.0) 11/11/18 05:30 Calcium 8.4 mg/dL (8.5-10.1) L 11/15/18 05:30 Phosphorus 2.2 mg/dL (2.5-4.9) L 11/14/18 05:15 Magnesium 1.7 mg/dL (1.8-2.4) L 11/14/18 05:15 Total Bilirubin 0.6 mg/dL (0.2-1) 11/15/18 05:30 AST 25 U/L (15-37) 11/15/18 05:30 ALT 33 U/L (13-61) 11/15/18 05:30 Alkaline Phosphatase 142 U/L (45-117) H 11/15/18 05:30 Creatine Kinase 33 IU/L (26-192) 11/09/18 00:30 Troponin I 0.03 ng/ml (0.00-0.05) 11/10/18 19:45 B-Natriuretic Peptide 87871.7 pg/ml (5-450) H 11/08/18 14:05 Total Protein 6.3 g/dl (6.4-8.2) L 11/15/18 05:30 Albumin 2.4 g/dl (3.4-5.0) L 11/15/18 05:30 TSH 8.88 uIU/ml (0.358-3.74) H 11/09/18 07:00 Free T4 1.25 ng/dl (0.76-1.46) 11/09/18 07:00 Constitutional: No Distress ...Auscultate: Yes: Normoactive Bowel Sounds ...Palpate: Yes: Soft, Other (nontender) Labs: CBC, BMP 11/15/18 05:30 11/15/18 05:30 INR, PTT INR 1.10 (0.83-1.09) H 11/08/18 14:05 Assessment/Plan Paradoxical diarrhea Stop Miralax temporarily Problem List - Problems (1) Constipation Code(s): K59.00 - CONSTIPATION, UNSPECIFIED Qualifiers: Constipation type: unspecified constipation type Qualified Code(s): K59.00 - Constipation, unspecified (2) Diarrhea Code(s): R19.7 - DIARRHEA, UNSPECIFIED (3) Diastolic CHF Code(s): I50.30 - UNSPECIFIED DIASTOLIC (CONGESTIVE) HEART FAILURE (4) Ischemic colitis Code(s): K55.9 - VASCULAR DISORDER OF INTESTINE, UNSPECIFIED (5) Atrial fibrillation Code(s): I48.91 - UNSPECIFIED ATRIAL FIBRILLATION Qualifiers: Atrial fibrillation type: persistent Qualified Code(s): I48.1 - Persistent atrial fibrillation (6) S/P coronary artery stent placement Code(s): Z95.5 - PRESENCE OF CORONARY ANGIOPLASTY IMPLANT AND GRAFT (7) Bile duct calculus Code(s): K80.50 - CALCULUS OF BILE DUCT W/O CHOLANGITIS OR CHOLECYST W/O OBST Qualifiers: Cholecystitis presence: without cholecystitis Biliary obstruction: with biliary obstruction Qualified Code(s): K80.51 - Calculus of bile duct without cholangitis or cholecystitis with obstruction (8) Hypothyroidism Code(s): E03.9 - HYPOTHYROIDISM, UNSPECIFIED Qualifiers: Hypothyroidism type: unspecified Qualified Code(s): E03.9 - Hypothyroidism , unspecified (9) Lower esophageal ring (Schatzki) Code(s): K22.2 - ESOPHAGEAL OBSTRUCTION (10) Severe aortic stenosis Code(s): I35.0 - NONRHEUMATIC AORTIC (VALVE) STENOSIS (11) Syncope and collapse Code(s): R55 - SYNCOPE AND COLLAPSE
[2018-11-15] MEDS ORDERED: WARFARIN NA 5 MG TABLET (UD) PO ONE (18:00)
[2018-11-15] MEDS: ATORVASTATIN CA 10 MG TABLET (FP) PO SCH (21:17)
[2018-11-16] MEDS: ONDANSETRON 4 MG/2 ML VIAL IVPUSH PRN ×2 (05:43→19:47)
[2018-11-16] MEDS: dilTIAZem HCL 30 MG TABLET (FP) PO SCH ×3 (05:53→17:52)
[2018-11-16 06:50] LABS: BASO % 1.1 % (0-2.0); EOS % 2.3 % (0-4.5); HEMATOCRIT 29.5 % (32.4-45.2); HEMOGLOBIN 9.7 GM/dL (10.7-15.3); LYMPH % 18.7 % (8-40); MCH 30.5 pg (25.7-33.7); MCHC 32.7 g/dl (32.0-36.0); MEAN CELL VOLUME 93.2 fl (80-96); MEAN PLT VOLUME 8.9 fl (7.5-11.1); NEUT % 65.9 % (42.8-82.8); PLATELET COUNT 152 K/MM3 (134-434); RBC 3.17 M/mm3 (3.60-5.2); RDW 15.1 % (11.6-15.6); WHITE BLOOD COUNT 5.4 K/mm3 (4.0-10.0)
[2018-11-16 07:30] LABS: ALBUMIN 2.5 g/dl (3.4-5.0); ALK PHOS 136 U/L (45-117); AMYLASE 32 U/L (25-115); ANION GAP 4 MMOL/L (8-16); BILIRUBIN,TOTAL 0.5 mg/dL (0.2-1); BLOOD UREA NITROGEN 21 mg/dL (7-18); CALCIUM 8.6 mg/dL (8.5-10.1); CHLORIDE 100 mmol/L (98-107); CO2 26 mmol/L (21-32); GLUCOSE,RANDOM 89 mg/dL (74-106); LIPASE 198 U/L (73-393); POTASSIUM 4.2 mmol/L (3.5-5.1); SGOT/AST 21 U/L (15-37); SGPT/ALT 29 U/L (13-61); SODIUM 131 mmol/L (136-145); TOT PROT 6.4 g/dl (6.4-8.2)
--- NOTE | 2018-11-16 09:24 | PN ---
Progress Note, Physician History of Present Illness: THAKKAR, diarrhea resolved, but complains of nausea. - Current Medication List Current Medications: Active Medications Al Hydroxide/Mg Hydroxide (Mylanta Oral Suspension -) 30 ml PO Q24H PRN PRN Reason: DYSPEPSIA Last Admin: 11/14/18 22:41 Dose: 30 ml Allopurinol (Zyloprim -) 100 mg PO DAILY [facility] Amiodarone HCl (Cordarone -) 200 mg PO DAILY [facility] Aspirin (Asa -) 81 mg PO DAILY [facility] Atorvastatin Calcium (Lipitor -) 10 mg PO HS [facility] Last Admin: 11/15/18 21:17 Dose: 10 mg Clopidogrel Bisulfate (Plavix -) 75 mg PO DAILY [facility] Diltiazem HCl (Cardizem -) 30 mg PO Q6HPO [facility] Last Admin: 11/16/18 05:53 Dose: 30 mg Furosemide (Lasix -) 20 mg PO DAILY [facility] Hydrocortisone (Hytone 1% Cream -) 1 applic TP DAILY PRN PRN Reason: DRY SKIN Metoprolol Succinate (Toprol Xl -) 200 mg PO DAILY [facility] Ondansetron HCl (Zofran Injection) 4 mg IVPUSH Q4H PRN PRN Reason: NAUSEA AND/OR VOMITING Last Admin: 11/16/18 05:43 Dose: 4 mg Pantoprazole Sodium (Protonix -) 40 mg PO DAILY [facility] Simethicone (Mylicon -) 80 mg PO Q4H PRN PRN Reason: CONSTIPATION - Objective Vital Signs: Vital Signs Temperature 98.7 F 11/16/18 02:00 Pulse Rate 95 H 11/16/18 02:00 Respiratory Rate 20 11/16/18 02:00 Blood Pressure 109/68 11/16/18 02:00 O2 Sat by Pulse Oximetry (%) 97 11/15/18 20:57 Constitutional: Yes: No Distress, Calm, Thin Neck: Yes: Supple Cardiovascular: Yes: Tachycardia, Pulse Irregular, Murmur (3/6 SM) Respiratory: Yes: Regular, Diminished Gastrointestinal: Yes: Soft, Hypoactive Bowel Sounds Edema: No Labs: CBC, BMP 11/16/18 05:30 11/16/18 06:00 INR, PTT INR 1.10 (0.83-1.09) H 11/08/18 14:05 - ....Imaging EKG: Report Reviewed (Tele: Afib occ v-paced) Problem List - Problems (1) S/P coronary artery stent placement Code(s): Z95.5 - PRESENCE OF CORONARY ANGIOPLASTY IMPLANT AND GRAFT (2) Atrial fibrillation Code(s): I48.91 - UNSPECIFIED ATRIAL FIBRILLATION Qualifiers: Atrial fibrillation type: persistent Qualified Code(s): I48.1 - Persistent atrial fibrillation (3) CHF exacerbation Code(s): I50.9 - HEART FAILURE, UNSPECIFIED Qualifiers: Heart failure type: diastolic Qualified Code(s): I50.33 - Acute on chronic diastolic (congestive) heart failure (4) Coronary artery disease Code(s): I25.10 - ATHSCL HEART DISEASE OF [place] CORONARY ARTERY W/O ANG PCTRS Qualifiers: Coronary Disease-Associated Artery/Lesion type: [place] artery [place] vs. transplanted heart: [place] heart Associated angina: without angina Qualified Code(s): I25.10 - Atherosclerotic heart disease of [place] coronary artery without angina pectoris (5) History of cardioversion Code(s): Z98.890 - OTHER SPECIFIED POSTPROCEDURAL STATES (6) History of pacemaker Code(s): Z95.0 - PRESENCE OF CARDIAC PACEMAKER (7) Hypertension Code(s): I10 - ESSENTIAL (PRIMARY) HYPERTENSION Qualifiers: Hypertension type: essential hypertension Qualified Code(s): I10 - Essential (primary) hypertension (8) Hyponatremia Code(s): E87.1 - HYPO-OSMOLALITY AND HYPONATREMIA (9) Hypothyroidism Code(s): E03.9 - HYPOTHYROIDISM, UNSPECIFIED Qualifiers: Hypothyroidism type: unspecified Qualified Code(s): E03.9 - Hypothyroidism , unspecified (10) Severe aortic stenosis Code(s): I35.0 - NONRHEUMATIC AORTIC (VALVE) STENOSIS Assessment/Plan 1. Acute on chronic class II NYHA classification LV failure related to diastolic LV dysfunction 2. Severe aortic valve stenosis 3. Persistent atrial fibrillation with RVR 4. CAD s/p rotational atherectomy and AGUEDA LAD angina pectoris 5. Post coronary perforation pericarditis post colchicine course 6. 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 HTN/HCVD 8. Hyperlipidemia 9. Hypothyroidism 10. Acute on CKD 11. Retained stones post cholecystectomy with biliary duct dilatation post therapeutic ERCP/sphincterotomy and biliary stent 12. History of schatzki ring dilation 13. MGUS 14. Hyponatremia PLAN: 1. Continue Furosemide 20 mg QD 2. Continue Amiodarone 200 mg QD, Plavix 75 mg QD and Toprol XL 200 mg QD. Continue Cardizem 30 q6 for rate control and titrate dose (keep HR < 100) 3. Continue Lipitor 10 mg QHS and Losartan 25 mg QD and follow renal function. Colchicine therapy has been completed 4. Anticoagulation held due to recent pericarditis and effusion, but may be able to restart it. Once Coumadin is restarted, may discontinue ASA 5. Consider CARLI +/- synchronized cardioversion today. Keep NPO 6. Further GI evaluation as outpatient then TAVR evaluation to follow
[2018-11-16] MEDS ORDERED: ALLOPURINOL 100 MG TABLET (FP) PO SCH (10:00)
--- NOTE | 2018-11-16 10:07 | PN ---
Progress Note, Physician Chief Complaint: in bed NAD no new c/o awaiting for DC CV d/w and pt's daughter at bedside d/w cardio dr Elise - Current Medication List Current Medications: Active Medications Al Hydroxide/Mg Hydroxide (Mylanta Oral Suspension -) 30 ml PO Q24H PRN PRN Reason: DYSPEPSIA Last Admin: 11/14/18 22:41 Dose: 30 ml Amiodarone HCl (Cordarone -) 200 mg PO DAILY [facility] Aspirin (Asa -) 81 mg PO DAILY [facility] Atorvastatin Calcium (Lipitor -) 10 mg PO HS [facility] Last Admin: 11/15/18 21:17 Dose: 10 mg Clopidogrel Bisulfate (Plavix -) 75 mg PO DAILY [facility] Diltiazem HCl (Cardizem -) 30 mg PO Q6HPO [facility] Last Admin: 11/16/18 05:53 Dose: 30 mg Furosemide (Lasix -) 20 mg PO DAILY [facility] Hydrocortisone (Hytone 1% Cream -) 1 applic TP DAILY PRN PRN Reason: DRY SKIN Metoprolol Succinate (Toprol Xl -) 200 mg PO DAILY [facility] Ondansetron HCl (Zofran Injection) 4 mg IVPUSH Q4H PRN PRN Reason: NAUSEA AND/OR VOMITING Last Admin: 11/16/18 05:43 Dose: 4 mg Pantoprazole Sodium (Protonix -) 40 mg PO DAILY [facility] Simethicone (Mylicon -) 80 mg PO Q4H PRN PRN Reason: CONSTIPATION - Objective Vital Signs: Vital Signs Temperature 98.7 F 11/16/18 02:00 Pulse Rate 95 H 11/16/18 02:00 Respiratory Rate 20 11/16/18 02:00 Blood Pressure 109/68 11/16/18 02:00 O2 Sat by Pulse Oximetry (%) 98 11/16/18 09:00 Constitutional: Yes: No Distress, Calm Eyes: Yes: Conjunctiva Clear HENT: Yes: Atraumatic Neck: Yes: Supple Cardiovascular: Yes: Regular Rate and Rhythm Respiratory: Yes: CTA Bilaterally Gastrointestinal: Yes: Soft. No: Distention Genitourinary: No: CVA Tenderness - Left, CVA Tenderness - Right Musculoskeletal: No: Joint Stiffness, Joint Swelling Extremities: No: Cold, Cool, Cyanosis Edema: No Integumentary: No: Rash, Venous Stasis Changes Neurological: Yes: WNL, Alert, Oriented ...Motor Strength: WNL Psychiatric: Yes: WNL, Alert, Oriented. No: Agitated, Suicidal Ideation Labs: CBC, BMP 11/16/18 05:30 11/16/18 06:00 INR, PTT INR 1.10 (0.83-1.09) H 11/08/18 14:05 - ....Imaging Other: Report Reviewed Assessment/Plan 88F with HTN, HL, afib, PPM for vasodepressive syncope , s/p recurrent vaso- vagal episode, tachycardia and hypotension; improved now H/O: Vasodepressive syncope s/p PPM; aortic stenosis-severe Lactic acidosis; pericarditis; CHF-diastolic dysfunction CAD s/p cath and recent AGUEDA GERD, ANTONY/CRF Pulmonary HTN; mitral insufficiency neurogenic bladder lumbago; spinal stenosis; MGUS; osteoarthritis; hypothyroidism Plan: -cont BB and CCB, space dosing, HR target as per Cardiology -cont ASA, Plavix statin -zofran IV prn for nausea, GI f/u -DC CV per cardio; d/w cardio: colchicine was used for pericarditis but OK to DC ; DC allopurinol also -telemetry monitoring -protonix, scd for DVT PFX -falls, decubs PFX -OOB to chair ; PT rehab prognosis guarded; d/w pt and daughter
[2018-11-16] MEDS ORDERED: LIDOCAINE VISCOUS 2% ORAL/TOP 20 ML UNIT-DOSE CUP ONE (10:08)
--- NOTE | 2018-11-16 12:44 | ECHO ---
Name: GARBOWSKI, SHAUN Exam:Transesophageal Echocardiogram Study Date: 11/16/2018 10:32 AM Age: 88 yrs Reason For Study: A-Fib Height: 65 in Weight: 142 lb BSA: 1.7 m2 Procedure: A 2D transesophageal echocardiogram with Doppler and color flow Doppler was performed. Informed conse nt for Transesophageal Echocardiogram, and use of a contrast agent as needed, was obtained prior to the proc edure. The patient was brought to the endoscopy suite in a fasting state. An intravenous line was placed. A topical anesthetic agent was used for oropharangeal anesthesia. A bite block was inserted. IV concious sedati on was administered using propafol. A multifrequency, multiplane transesopheageal echocardiographic endoscop e was inserted and manipulated in the standard fashion to achieve multiplane views. The usual views were ob tained; basal, mid-esophageal, transgastric and aortic views. The patient's vital signs, including blood pres sure, heart rate, pulse oximetry and cardiac rhythm were monitored throughout the procedure and remained st able. The patient tolerated the procedure well without evidence of orophangeal or esophageal trauma. There were no complications. The patient was in atrial fibrillation with rapid ventricular response during the exam with a heart rate exceeding 100 bpm. Left Ventricle The left ventricle is normal in size. Left ventricular systolic function is low normal. Regional wall motion abnormality could not be accurately assessed. Right Ventricle There is a pacemaker lead in the right ventricle. Atria The left atrium is moderately dilated. No thrombus is detected in the left atrial appendage. No left atrial mass or thrombus visualized. The right atrium is moderately dilated. The interatrial septum is intact with no evidence for an atrial septal defect. Injection of contrast documented no interatrial shunt. Mitral Valve There is mild mitral valve thickening. There is moderate mitral regurgitation. Tricuspid Valve The tricuspid valve is not well visualized, but is grossly normal. There is moderate tricuspid regurg itation. Aortic Valve There is moderate aortic valve thickening. Severe valvular aortic stenosis. Pulmonic Valve The pulmonic valve is not well visualized. Great Vessels Small atheroslcerotic plaque in descending thoracic aorta and distal aortic arch. Pericardium/Pluera There is no pericardial effusion. Interpretation Summary The left ventricle is normal in size. Left ventricular systolic function is low normal. Regional wall motion abnormality could not be accurately assessed There is a pacemaker lead in the right ventricle. The left atrium is moderately dilated. The right atrium is moderately dilated. No thrombus is detected in the left atrial appendage. No left atrial mass or thrombus visualized. The interatrial septum is intact with no evidence for an atrial septal defect. Injection of contrast documented no interatrial shunt. There is mild mitral valve thickening. There is moderate mitral regurgitation. There is moderate tricuspid regurgitation. There is moderate aortic valve thickening. Severe valvular aortic stenosis. Small atheroslcerotic plaque in descending thoracic aorta and distal aortic arch There is no pericardial effusion. Proceed with synchronized cardioversion Alejandro Elise MD 11/16/2018 12:43 PM
[2018-11-16] MEDS: ASPIRIN 81 MG CHEWABLE TABLETS PO SCH (13:53)
[2018-11-16] MEDS: AMIODARONE HCL 200 MG TABLET (FP) PO SCH (13:54)
[2018-11-16] MEDS: FUROSEMIDE 20 MG TABLET (FP) PO SCH (13:54)
[2018-11-16] MEDS: PANTOPRAZOLE 40 MG TABLET (FP) PO SCH (13:55)
[2018-11-16] MEDS: CLOPIDOGREL BISULFATE 75 MG TABLET (FP) PO SCH (13:55)
--- NOTE | 2018-11-16 16:14 | EKG ---
Test Reason : Blood Pressure : / mmHG Vent. Rate : 060 BPM Atrial Rate : 468 BPM P-R Int : 000 ms QRS Dur : 094 ms QT Int : 434 ms P-R-T Axes : 000 054 241 degrees QTc Int : 434 ms Atrial-paced rhythm with prolonged AV conduction SEPTAL INFARCT , AGE UNDETERMINED ABNORMAL ECG WHEN COMPARED WITH ECG OF 08-NOV-2018 14:19, ELECTRONIC ATRIAL PACEMAKER HAS REPLACED ATRIAL FIBRILLATION VENT. RATE HAS DECREASED BY 37 BPM SEPTAL INFARCT IS NOW PRESENT ST NOW DEPRESSED IN INFERIOR LEADS NONSPECIFIC T WAVE ABNORMALITY NOW EVIDENT IN INFERIOR LEADS NONSPECIFIC T WAVE ABNORMALITY, WORSE IN LATERAL LEADS Confirmed by LISA RENTERIA MD ([id number]) on 11/16/2018 4:14:23 PM Referred By: Confirmed By:LISA RENTERIA MD
--- NOTE | 2018-11-16 17:25 | PN ---
Progress Note (short form) - Note Progress Note: ADDENDUM: Patient was successfully cardioverted and ECG initially was atrial paced with AV delay at rate of 60-70 bpm, however; soon her HR increased to 110-120 bpm with the same atrial paced with AV delay. Initially, patient was given Adenosine IVP and then Lopressor IV and Esmolol IV but without any response. It appears to be pacemaker mediated tachycardia. [employer] was contacted for interrogation and reprogramming the device. In the mean time, continue with current medical therapy and continue with anticoagulation. Alejandro Elise MD Problem List - Problems (1) Anemia Code(s): D64.9 - ANEMIA, UNSPECIFIED (2) Atrial fibrillation Code(s): I48.91 - UNSPECIFIED ATRIAL FIBRILLATION Qualifiers: Atrial fibrillation type: persistent Qualified Code(s): I48.1 - Persistent atrial fibrillation (3) CHF (congestive heart failure) Code(s): I50.9 - HEART FAILURE, UNSPECIFIED (4) Diastolic CHF Code(s): I50.30 - UNSPECIFIED DIASTOLIC (CONGESTIVE) HEART FAILURE (5) Ischemic colitis Code(s): K55.9 - VASCULAR DISORDER OF INTESTINE, UNSPECIFIED (6) Partial bowel obstruction Code(s): K56.600 - PARTIAL INTESTINAL OBSTRUCTION, UNSPECIFIED TO CAUSE (7) S/P coronary artery stent placement Code(s): Z95.5 - PRESENCE OF CORONARY ANGIOPLASTY IMPLANT AND GRAFT (8) History of pacemaker Code(s): Z95.0 - PRESENCE OF CARDIAC PACEMAKER (9) Hyperlipidemia Code(s): E78.5 - HYPERLIPIDEMIA, UNSPECIFIED Qualifiers: Hyperlipidemia type: pure hypercholesterolemia Qualified Code(s): E78.00 - Pure hypercholesterolemia, unspecified (10) Hypertension Code(s): I10 - ESSENTIAL (PRIMARY) HYPERTENSION Qualifiers: Hypertension type: essential hypertension Qualified Code(s): I10 - Essential (primary) hypertension (11) Hypothyroidism Code(s): E03.9 - HYPOTHYROIDISM, UNSPECIFIED Qualifiers: Hypothyroidism type: unspecified Qualified Code(s): E03.9 - Hypothyroidism , unspecified (12) MGUS (monoclonal gammopathy of unknown significance) Code(s): D47.2 - MONOCLONAL GAMMOPATHY (13) Severe aortic stenosis Code(s): I35.0 - NONRHEUMATIC AORTIC (VALVE) STENOSIS
[2018-11-16] MEDS ORDERED: WARFARIN NA 10 MG TABLET (FP) PO ONE (18:00)
[2018-11-16 18:53] LABS: INR 1.6 (0.83-1.09)
[2018-11-16] MEDS: ATORVASTATIN CA 10 MG TABLET (FP) PO SCH (22:09)
[2018-11-17] MEDS: dilTIAZem HCL 30 MG TABLET (FP) PO SCH ×4 (01:55→17:01)
[2018-11-17 07:15] LABS: BASO % 1.1 % (0-2.0); EOS % 2.3 % (0-4.5); HEMATOCRIT 28.8 % (32.4-45.2); HEMOGLOBIN 9.4 GM/dL (10.7-15.3); LYMPH % 14.7 % (8-40); MCH 30.5 pg (25.7-33.7); MCHC 32.6 g/dl (32.0-36.0); MEAN CELL VOLUME 93.5 fl (80-96); MONO % 11.7 % (3.8-10.2); NEUT % 70.2 % (42.8-82.8); PLATELET COUNT 141 K/MM3 (134-434); RBC 3.08 M/mm3 (3.60-5.2); RDW 15.3 % (11.6-15.6); WHITE BLOOD COUNT 5.1 K/mm3 (4.0-10.0)
--- NOTE | 2018-11-17 07:21 | PN ---
Progress Note, Physician - Current Medication List Current Medications: Active Medications Al Hydroxide/Mg Hydroxide (Mylanta Oral Suspension -) 30 ml PO Q24H PRN PRN Reason: DYSPEPSIA Last Admin: 11/14/18 22:41 Dose: 30 ml Amiodarone HCl (Cordarone -) 200 mg PO DAILY [facility] Last Admin: 11/16/18 13:54 Dose: 200 mg Aspirin (Asa -) 81 mg PO DAILY [facility] Last Admin: 11/16/18 13:53 Dose: 81 mg Atorvastatin Calcium (Lipitor -) 10 mg PO HS [facility] Last Admin: 11/16/18 22:09 Dose: 10 mg Clopidogrel Bisulfate (Plavix -) 75 mg PO DAILY [facility] Last Admin: 11/16/18 13:55 Dose: 75 mg Diltiazem HCl (Cardizem -) 30 mg PO Q6HPO [facility] Last Admin: 11/17/18 06:26 Dose: 30 mg Furosemide (Lasix -) 20 mg PO DAILY [facility] Last Admin: 11/16/18 13:54 Dose: 20 mg Hydrocortisone (Hytone 1% Cream -) 1 applic TP DAILY PRN PRN Reason: DRY SKIN Metoprolol Succinate (Toprol Xl -) 200 mg PO DAILY [facility] Last Admin: 11/16/18 13:55 Dose: 200 mg Ondansetron HCl (Zofran Injection) 4 mg IVPUSH Q4H PRN PRN Reason: NAUSEA AND/OR VOMITING Last Admin: 11/16/18 19:47 Dose: 4 mg Pantoprazole Sodium (Protonix -) 40 mg PO DAILY [facility] Last Admin: 11/16/18 13:55 Dose: 40 mg Simethicone (Mylicon -) 80 mg PO Q4H PRN PRN Reason: CONSTIPATION - Objective Vital Signs: Vital Signs Temperature 98.1 F 11/17/18 06:00 Pulse Rate 76 11/17/18 06:00 Respiratory Rate 20 11/17/18 06:00 Blood Pressure 114/76 11/17/18 06:00 O2 Sat by Pulse Oximetry (%) 96 11/16/18 20:27 Labs: INR, PTT INR 1.60 (0.83-1.09) H 11/16/18 18:00
[2018-11-17 07:25] LABS: INR 2.39 (0.83-1.09); PROTHROMBIN TIME (PATIENT) 28.4 SEC (9.7-13.0)
[2018-11-17 08:49] LABS: ALBUMIN 2.4 g/dl (3.4-5.0); ALK PHOS 127 U/L (45-117); ANION GAP 6 MMOL/L (8-16); BILIRUBIN,TOTAL 0.7 mg/dL (0.2-1); BLOOD UREA NITROGEN 19 mg/dL (7-18); CALCIUM 8.5 mg/dL (8.5-10.1); CHLORIDE 100 mmol/L (98-107); CO2 31 mmol/L (21-32); CREATININE 1.1 mg/dL (0.55-1.3); GLUCOSE,RANDOM 79 mg/dL (74-106); POTASSIUM 4.1 mmol/L (3.5-5.1); SGOT/AST 21 U/L (15-37); SGPT/ALT 27 U/L (13-61); SODIUM 138 mmol/L (136-145); TOT PROT 6.4 g/dl (6.4-8.2)
[2018-11-17] MEDS: FUROSEMIDE 20 MG TABLET (FP) PO SCH (09:49)
[2018-11-17] MEDS: PANTOPRAZOLE 40 MG TABLET (FP) PO SCH (09:49)
[2018-11-17] MEDS: AMIODARONE HCL 200 MG TABLET (FP) PO SCH (09:49)
[2018-11-17] MEDS: CLOPIDOGREL BISULFATE 75 MG TABLET (FP) PO SCH (09:49)
--- NOTE | 2018-11-17 11:09 | PN ---
Progress Note, Physician History of Present Illness: pulmonary alert,feeling better,s/p cardioversion tolerated procedure well w/o complications. - Current Medication List Current Medications: Active Medications Al Hydroxide/Mg Hydroxide (Mylanta Oral Suspension -) 30 ml PO Q24H PRN PRN Reason: DYSPEPSIA Last Admin: 11/14/18 22:41 Dose: 30 ml Amiodarone HCl (Cordarone -) 200 mg PO DAILY [facility] Last Admin: 11/17/18 09:49 Dose: 200 mg Aspirin (Asa -) 81 mg PO DAILY [facility] Last Admin: 11/16/18 13:53 Dose: 81 mg Atorvastatin Calcium (Lipitor -) 10 mg PO HS [facility] Last Admin: 11/16/18 22:09 Dose: 10 mg Clopidogrel Bisulfate (Plavix -) 75 mg PO DAILY [facility] Last Admin: 11/17/18 09:49 Dose: 75 mg Diltiazem HCl (Cardizem -) 30 mg PO Q6HPO [facility] Last Admin: 11/17/18 06:26 Dose: 30 mg Furosemide (Lasix -) 20 mg PO DAILY [facility] Last Admin: 11/17/18 09:49 Dose: 20 mg Hydrocortisone (Hytone 1% Cream -) 1 applic TP DAILY PRN PRN Reason: DRY SKIN Metoprolol Succinate (Toprol Xl -) 200 mg PO DAILY [facility] Last Admin: 11/17/18 09:49 Dose: 200 mg Ondansetron HCl (Zofran Injection) 4 mg IVPUSH Q4H PRN PRN Reason: NAUSEA AND/OR VOMITING Last Admin: 11/16/18 19:47 Dose: 4 mg Pantoprazole Sodium (Protonix -) 40 mg PO DAILY [facility] Last Admin: 11/17/18 09:49 Dose: 40 mg Simethicone (Mylicon -) 80 mg PO Q4H PRN PRN Reason: CONSTIPATION - Objective Vital Signs: Vital Signs Temperature 98 F 11/17/18 09:53 Pulse Rate 76 11/17/18 09:53 Respiratory Rate 18 11/17/18 09:53 Blood Pressure 114/74 11/17/18 09:53 O2 Sat by Pulse Oximetry (%) 96 11/16/18 20:27 Constitutional: Yes: Well Nourished, Calm Eyes: Yes: WNL HENT: Yes: WNL Neck: Yes: WNL Cardiovascular: Yes: Regular Rate and Rhythm, S1, S2 Respiratory: Yes: Diminished Gastrointestinal: Yes: Normal Bowel Sounds, Soft Extremities: Yes: WNL Edema: No Labs: CBC, BMP 11/17/18 05:40 11/17/18 05:40 INR, PTT INR 2.39 (0.83-1.09) H 11/17/18 05:40 Problem List - Problems (1) Atrial fibrillation Code(s): I48.91 - UNSPECIFIED ATRIAL FIBRILLATION Qualifiers: Atrial fibrillation type: persistent Qualified Code(s): I48.1 - Persistent atrial fibrillation (2) Diastolic CHF Code(s): I50.30 - UNSPECIFIED DIASTOLIC (CONGESTIVE) HEART FAILURE (3) S/P coronary artery stent placement Code(s): Z95.5 - PRESENCE OF CORONARY ANGIOPLASTY IMPLANT AND GRAFT (4) CHF exacerbation Code(s): I50.9 - HEART FAILURE, UNSPECIFIED Qualifiers: Heart failure type: diastolic Qualified Code(s): I50.33 - Acute on chronic diastolic (congestive) heart failure (5) History of pacemaker Code(s): Z95.0 - PRESENCE OF CARDIAC PACEMAKER (6) Hypertension Code(s): I10 - ESSENTIAL (PRIMARY) HYPERTENSION Qualifiers: Hypertension type: essential hypertension Qualified Code(s): I10 - Essential (primary) hypertension (7) Severe aortic stenosis Code(s): I35.0 - NONRHEUMATIC AORTIC (VALVE) STENOSIS (8) Syncope Code(s): R55 - SYNCOPE AND COLLAPSE Assessment/Plan A/P Syncope Acute on Chronic Diastolic Heart Failure Severe Aortic Stenosis Atrial Fibrillation with RVR s/p cardioversion CAD HTN Hyperlipidemia Hypothyroidism - rate control as per cardiology - anticoagulation - lasix - monitor urine output, creatinine DR GALAN
--- NOTE | 2018-11-17 11:34 | PN ---
Progress Note, Physician History of Present Illness: THAKKAR, diarrhea rand nausea resolved, remains in NSR post CARLI-guided DCCV. - Current Medication List Current Medications: Active Medications Al Hydroxide/Mg Hydroxide (Mylanta Oral Suspension -) 30 ml PO Q24H PRN PRN Reason: DYSPEPSIA Last Admin: 11/14/18 22:41 Dose: 30 ml Amiodarone HCl (Cordarone -) 200 mg PO DAILY [facility] Last Admin: 11/17/18 09:49 Dose: 200 mg Aspirin (Asa -) 81 mg PO DAILY [facility] Last Admin: 11/16/18 13:53 Dose: 81 mg Atorvastatin Calcium (Lipitor -) 10 mg PO HS [facility] Last Admin: 11/16/18 22:09 Dose: 10 mg Clopidogrel Bisulfate (Plavix -) 75 mg PO DAILY [facility] Last Admin: 11/17/18 09:49 Dose: 75 mg Diltiazem HCl (Cardizem -) 30 mg PO Q6HPO [facility] Last Admin: 11/17/18 06:26 Dose: 30 mg Furosemide (Lasix -) 20 mg PO DAILY [facility] Last Admin: 11/17/18 09:49 Dose: 20 mg Hydrocortisone (Hytone 1% Cream -) 1 applic TP DAILY PRN PRN Reason: DRY SKIN Metoprolol Succinate (Toprol Xl -) 200 mg PO DAILY [facility] Last Admin: 11/17/18 09:49 Dose: 200 mg Ondansetron HCl (Zofran Injection) 4 mg IVPUSH Q4H PRN PRN Reason: NAUSEA AND/OR VOMITING Last Admin: 11/16/18 19:47 Dose: 4 mg Pantoprazole Sodium (Protonix -) 40 mg PO DAILY [facility] Last Admin: 11/17/18 09:49 Dose: 40 mg Simethicone (Mylicon -) 80 mg PO Q4H PRN PRN Reason: CONSTIPATION - Objective Vital Signs: Vital Signs Temperature 98 F 11/17/18 09:53 Pulse Rate 76 11/17/18 09:53 Respiratory Rate 18 11/17/18 09:53 Blood Pressure 114/74 11/17/18 09:53 O2 Sat by Pulse Oximetry (%) 96 11/16/18 20:27 Constitutional: Yes: No Distress, Calm, Thin Neck: Yes: Supple Cardiovascular: Yes: Regular Rate and Rhythm, Murmur (3/6 SM) Respiratory: Yes: Regular, Diminished Gastrointestinal: Yes: Normal Bowel Sounds, Soft Edema: No Labs: CBC, BMP 11/17/18 05:40 11/17/18 05:40 INR, PTT INR 2.39 (0.83-1.09) H 11/17/18 05:40 - ....Imaging EKG: Report Reviewed (Tele: NSR) Problem List - Problems (1) S/P coronary artery stent placement Code(s): Z95.5 - PRESENCE OF CORONARY ANGIOPLASTY IMPLANT AND GRAFT (2) Atrial fibrillation Code(s): I48.91 - UNSPECIFIED ATRIAL FIBRILLATION Qualifiers: Atrial fibrillation type: paroxysmal Qualified Code(s): I48.0 - Paroxysmal atrial fibrillation (3) CHF exacerbation Code(s): I50.9 - HEART FAILURE, UNSPECIFIED Qualifiers: Heart failure type: diastolic Qualified Code(s): I50.33 - Acute on chronic diastolic (congestive) heart failure (4) Coronary artery disease Code(s): I25.10 - ATHSCL HEART DISEASE OF [place] CORONARY ARTERY W/O ANG PCTRS Qualifiers: Coronary Disease-Associated Artery/Lesion type: [place] artery [place] vs. transplanted heart: [place] heart Associated angina: without angina Qualified Code(s): I25.10 - Atherosclerotic heart disease of [place] coronary artery without angina pectoris (5) History of cardioversion Code(s): Z98.890 - OTHER SPECIFIED POSTPROCEDURAL STATES (6) History of pacemaker Code(s): Z95.0 - PRESENCE OF CARDIAC PACEMAKER (7) Hypertension Code(s): I10 - ESSENTIAL (PRIMARY) HYPERTENSION Qualifiers: Hypertension type: essential hypertension Qualified Code(s): I10 - Essential (primary) hypertension (8) Hypothyroidism Code(s): E03.9 - HYPOTHYROIDISM, UNSPECIFIED Qualifiers: Hypothyroidism type: unspecified Qualified Code(s): E03.9 - Hypothyroidism , unspecified (9) Severe aortic stenosis Code(s): I35.0 - NONRHEUMATIC AORTIC (VALVE) STENOSIS Assessment/Plan 11/17/2017 CARLI: Normal LV size with low normal LV fxn, mod GINA, no CLARK thrombus or shunts, severe , mod MR, TR 1. Acute on chronic class II NYHA classification LV failure related to diastolic LV dysfunction 2. Severe aortic valve stenosis 3. Paroxysmal atrial fibrillation post CARLI-guided DCCV on coumadin with pacemaker mediated tachycardia 4. CAD s/p rotational atherectomy and AGUEDA LAD angina pectoris 5. Post coronary perforation pericarditis post colchicine course 6. 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 HTN/HCVD 8. Hyperlipidemia 9. Hypothyroidism 10. Acute on CKD 11. Retained stones post cholecystectomy with biliary duct dilatation post therapeutic ERCP/sphincterotomy and biliary stent 12. History of schatzki ring dilation 13. MGUS 14. Hyponatremia PLAN: 1. Continue Furosemide 20 mg QD 2. Continue Amiodarone 200 mg QD, Plavix 75 mg QD and Toprol XL 200 mg QD, d/c Cardizem 3. Continue Lipitor 10 mg QHS and Losartan 25 mg QD and follow renal function. Colchicine therapy has been completed 4. Anticoagulation held due to recent pericarditis and effusion, but may be able to restart it. Once Coumadin is restarted, may discontinue ASA 30 days post AGUEDA 5. Further GI evaluation as outpatient then TAVR evaluation to follow
[2018-11-17] MEDS: ASPIRIN 81 MG CHEWABLE TABLETS PO SCH (12:44)
[2018-11-17 13:44] VITALS: BP 119/76; PULSE 70; TEMP 98.2
[2018-11-17] MEDS: ONDANSETRON 4 MG/2 ML VIAL IVPUSH PRN (14:15)
--- NOTE | 2018-11-17 15:58 | DS ---
Physical Examination Vital Signs: Vital Signs Temperature 98.2 F 11/17/18 13:43 Pulse Rate 70 11/17/18 13:43 Respiratory Rate 18 11/17/18 13:43 Blood Pressure 119/76 11/17/18 13:43 O2 Sat by Pulse Oximetry (%) 97 11/17/18 09:00 Findings/Remarks: OOB to chair feels better no CP/SOB no N/V no diarrhea; s/p DC CV HR 70-80 d/w cardio dr Mccord OK to DC to SNF; DC cardizem continue [place] (HR well controlled, s/p DC CV); continue ASA for total 1 month after stent (together with Plavix and coumadin) check INR frequently to keep it 2-3; continue Plavix and coumadin after stopping ASA (1 month and on after stent) meds and f/u needed d/w pt falls decubs PFX DC to [facility] Constitutional: Yes: No Distress, Calm Eyes: Yes: Conjunctiva Clear HENT: Yes: Atraumatic Neck: Yes: Supple Cardiovascular: Yes: Regular Rate and Rhythm Respiratory: Yes: CTA Bilaterally Gastrointestinal: Yes: Soft. No: Tenderness Renal/: No: CVA Tenderness - Left, CVA Tenderness - Right Musculoskeletal: No: Joint Stiffness, Joint Swelling Extremities: No: Cold, Cool, Cyanosis Peripheral Pulses WNL: No Integumentary: No: Pressure Ulcer, Rash, Venous Stasis Changes Neurological: Yes: WNL, Alert, Oriented ...Motor Strength: WNL Psychiatric: Yes: WNL, Alert, Oriented. No: Agitated, Suicidal Ideation Labs: CBC, BMP 11/17/18 05:40 11/17/18 05:40 Discharge Summary Reason For Visit: ATRIAL FIBRILLATION Current Active Problems Anemia (Acute) Atrial fibrillation (Acute) CHF (congestive heart failure) (Acute) Diastolic CHF (Acute) Ischemic colitis (Acute) Partial bowel obstruction (Acute) S/P coronary artery stent placement (Acute) Weakness (Acute) Procedures: Principal: admitted with hypotension, RAFib, seen by cardiology, meds adjusted; had DC cardioversion, HR better controlled. Other Procedures: 88-year-old female history of 2 vessel CAD s/p recent rotational atherectomy and AGUEDA of LAD c/b microperforation, pericarditis, diastolic dysfunction, severe aortic stenosis, hypertension, cardioinhibitory/ carotid hypersensitivity s/p pacemaker, hyperlipidemia, persistent A.fib on Coumadin [id number], hypothyroidisms/p appy, cholecystectomy and hysterectomy , diverticulosis/itis, GERD, CBD s/p ERCP, stent placement and stone retrieval, bladder stimulator for urinary frequency, fecal impaction constipation alternating with diarrhea. Hospital Course: improved with above. Condition: Stable - Instructions Diet, Activity, Other Instructions: f/u PCP and cardiology in 1-2 weeks; f/u pulmonary, GI and heme onc in 1-2 months; f/u labs CBC CMP INR in 1 week; check INR in am then in 2-3 days and adjust coumadin dose for INR 2-3 continue ASA for total 30 days after Stent (done in October 2018) then stop ASA and continue Plavix and coumadin close INR monitoring, adjust coumadin dose per INR; falls decubs PFX; RTER if worse or recurrent c/o Referrals: Jacque Richardson [Primary Care Provider] - Joby Gamboa MD [Staff Physician] - Minh Caputo MD [Staff Physician] - Everton Malik MD [Staff Physician] - Lance Mccord MD [Staff Physician] - Disposition: [facility] - Home Medications Comprehensive Discharge Medication List: Ambulatory Orders Metoprolol Succinate [Toprol Xl] 200 mg PO DAILY 11/08/18 Amiodarone HCl [Cordarone -] 200 mg PO DAILY #0 tab 11/17/18 Ascorbate Calcium [Vitamin C] 500 mg PO DAILY #0 tab 11/17/18 Aspirin [ASA -] 81 mg PO DAILY #0 tab 11/17/18 Brimonidine Tartrate/Timolol [Combigan 0.2%-0.5% Eye Drops] 10 ml OP BID #0 bottle 11/17/18 Clopidogrel Bisulfate [Plavix] 75 mg PO DAILY #0 tab 11/17/18 Dorzolamide HCl [Trusopt] 10 ml OD BID #0 drop 11/17/18 Furosemide [Lasix] 20 mg PO DAILY #0 tab 11/17/18 Hydrocortisone 1% Cream [Hytone 1% Cream -] 1 applic TP DAILY PRN tube Lactobacillus Acidophilus [Acidophilus] 1 each PO DAILY #0 cap 11/17/18 Latanoprost 0.005% Eye Drops [Xalatan 0.005% Eye Drops -] 1 drop OU HS #0 drop 11/17/18 Levothyroxine [Synthroid -] 75 mcg PO DAILY #0 tab 11/17/18 Mag Hydrox/Al Hydrox/Simeth [Mylanta Oral Suspension -] 30 ml PO Q24H PRN cup 11/17/18 Methenamine Hippurate [Hiprex [Nf] -] 1 gm PO BID #0 tab 11/17/18 Pantoprazole Sodium [Protonix] 40 mg PO DAILY #0 tab 11/17/18 Polyethylene Glycol 3350 [Miralax 119 gm Btl -] 17 gm PO DAILY #0 bottle Simethicone [Mylicon -] 80 mg PO Q4H PRN tab.chew 11/17/18 Simvastatin [Zocor -] 20 mg PO HS #0 tab 11/17/18 Warfarin Sodium 2 mg PO DAILY #30 tablet 11/17/18
[2018-11-17] MEDS: MAG HYDROX/AL HYDROX/SIMETH 30 ML UNIT-DOSE CUP PO PRN (16:26)
[2018-11-17] MEDS ORDERED: WARFARIN NA 2 MG TABLET (UD) PO SCH (18:00)
[2018-11-18 11:32] VITALS: BMI 23.9
== END 2018-11-17 17:12 | DRG 308 ==
LOC: JER 12:39 → JERBED 18:46 → J4S 23:16 → JICU 11-10 20:50 → J4W 11-14 09:32
PROVIDERS: ADMIT Specialist; ATTEND Specialist
PROC: B246ZZ4 Ultrasonography of Right and Left Heart, Transesophageal (ICD-10-PCS; 2018-11-16)
PROC: 5A2204Z Restoration of Cardiac Rhythm, Single (ICD-10-PCS; principal; 2018-11-16 09:30)
DX: I48.1 Persistent atrial fibrillation (principal); I50.33 Acute on chronic diastolic (congestive) heart failure; K55.9 Vascular disorder of intestine, unspecified; I31.9 Disease of pericardium, unspecified; E87.2 Acidosis; E87.1 Hypo-osmolality and hyponatremia; I13.0 Hypertensive heart and chronic kidney disease with heart failure and stage 1 through stage 4 chronic kidney disease, or unspecified chronic kidney disease; K59.00 Constipation, unspecified; E78.5 Hyperlipidemia, unspecified; I25.10 Atherosclerotic heart disease of native coronary artery without angina pectoris; Z98.61 Coronary angioplasty status; I35.0 Nonrheumatic aortic (valve) stenosis; E03.9 Hypothyroidism, unspecified; N18.9 Chronic kidney disease, unspecified; I27.20 Pulmonary hypertension, unspecified; R55 Syncope and collapse
CPT/HCPCS: 36415; 71045-TC-FY; 71046-TC-FY; 74019-TC-FY; 80053; 81003; 81015; 82150; 82550; 82962; 83605; 83690; 83735; 83880; 84100; 84439; 84443; 84484; 85025; 85027; 85610; 85730; 87086; 93005; 93010; 93306-TC; 93312; 93325; 97116-GP; 97161-GP; 99285-25

== ENCOUNTER 2018-12-16 17:59 | Inpatient (IN) | payer OTHER, MEDICARE ==
--- NOTE | 2018-12-16 18:35 | PDOC ---
History of Present Illness - General Chief Complaint: Bleeding from Anus Stated Complaint: HEMROIDS Time Seen by Provider: 12/16/18 18:27 - History of Present Illness Initial Comments: 12/16/18 18:30 88 yo F with HTN, CHF, Afib on Coumadin, and Plavix, CAD s/p stent placements, Ao stenosis, Mitral Insuffiency, Pulm HTN, Diverticulitis, SBO (2012), Hemmorhoids, Ischemic Colitis (2012), Cholecystectomy, Neurogenic Bladder s/p bladder stimulator who p/w bright red rectal bleeding. Patient reports acute bright red blood and clotting per rectum beginning at 400 PM this evening. Reports three normal stools prior to rectal bleed. Patient denies ROSENBAUM, vision change, palpitations, leg pain/swelling, N/V, F,C, CP , SOB, urinary complaints, abdominal pain, diarrhea, constipation, postprandial pain, hematuria, lightheadedness, weakness, sensory changes. PMHx: as noted above ROS: as noted SHx: Denies h/o tobacco use, IVDA. Allergies: NKDA Past History - Past Medical History Allergies/Adverse Reactions: Allergies Allergy/AdvReac Type Severity Reaction Status Date / Time erythromycin base Allergy Unknown abdominal Verified 12/16/18 18:15 [Erythromycin Base] pain Home Medications: Ambulatory Orders Metoprolol Succinate [Toprol Xl] 200 mg PO DAILY 11/08/18 Amiodarone HCl [Cordarone -] 200 mg PO DAILY #0 tab 11/17/18 Brimonidine Tartrate/Timolol [Combigan 0.2%-0.5% Eye Drops] 10 ml OP BID #0 bottle 11/17/18 Clopidogrel Bisulfate [Plavix] 75 mg PO DAILY #0 tab 11/17/18 Dorzolamide HCl [Trusopt] 10 ml OD BID #0 drop 11/17/18 Furosemide [Lasix] 20 mg PO DAILY #0 tab 11/17/18 Latanoprost 0.005% Eye Drops [Xalatan 0.005% Eye Drops -] 1 drop OU HS #0 drop 11/17/18 Levothyroxine [Synthroid -] 75 mcg PO DAILY #0 tab 11/17/18 Pantoprazole Sodium [Protonix] 40 mg PO DAILY #0 tab 11/17/18 Simvastatin [Zocor -] 20 mg PO HS #0 tab 11/17/18 Warfarin Na [Coumadin -] 2 mg PO DAILY@1800 tablet 11/17/18 Anemia: No Asthma: No Cancer: No Cardiac Disorders: Yes (PACEMAKER X 1, Stent Placement 10/31) CVA: No COPD: No CHF: No Dementia: No Diabetes: No GI Disorders: Yes (GALLSTONES EVEN THOUGH SHE HAD GALLBLADDER REMOVED) Disorders: Yes (BLADDER INFECTION) HTN: Yes Hypercholesterolemia: Yes Liver Disease: No Seizures: No Thyroid Disease: Yes (Hypothyroid) - Surgical History Abdominal Surgery: Yes (SLIT IN GALLBLADDDER DUCT, HEMMORHOID REMOVED) Appendectomy: Yes Cardiac Surgery: Yes (PACEMAKER X2 one for bladder) Cholecystectomy: Yes Lung Surgery: No Neurologic Surgery: No Orthopedic Surgery: No - Immunization History Immunization Up to Date: Yes - Suicide/Smoking/Psychosocial Hx Smoking Status: No Smoking History: Unknown if ever smoked Have you smoked in the past 12 months: No Number of Cigarettes Smoked Daily: 0 Hx Alcohol Use: No Drug/Substance Use Hx: No Substance Use Type: None Hx Substance Use Treatment: No Review of Systems - Review of Systems Comments:: 12/16/18 18:35 GENERAL/CONSTITUTIONAL: No fever or chills. No weakness. HEAD, EYES, EARS, NOSE AND THROAT: No change in vision. No ear pain or discharge. No sore throat. CARDIOVASCULAR: No chest pain or shortness of breath RESPIRATORY: No cough, wheezing, or hemoptysis. GASTROINTESTINAL: + Rectal bleeding. No nausea, vomiting, diarrhea or constipation. GENITOURINARY: No dysuria, frequency, or change in urination. MUSCULOSKELETAL: No joint or muscle swelling or pain. No neck or back pain. SKIN: No rash NEUROLOGIC: No headache, vertigo, loss of consciousness, or change in strength/ sensation. ENDOCRINE: No increased thirst. No abnormal weight change HEMATOLOGIC/LYMPHATIC: No anemia, easy bleeding, or history of blood clots. ALLERGIC/IMMUNOLOGIC: No hives or skin allergy. *Physical Exam - Vital Signs Last Vital Signs Temp Pulse Resp BP Pulse Ox 97.9 F 75 20 160/100 97 12/16/18 18:14 12/16/18 18:14 12/16/18 18:14 12/16/18 18:14 12/16/18 18:14 - Physical Exam Comments: 12/16/18 18:35 GENERAL: Awake, alert, and fully oriented, in no acute distress HEAD: No signs of trauma, normocephalic, atraumatic EYES: PERRLA, EOMI, sclera anicteric, conjunctiva clear ENT: Hearing grossly normal, nares patent, oropharynx clear without exudates. Moist mucosa NECK: Normal ROM, supple, no lymphadenopathy, JVD, or masses LUNGS: No distress, speaks full sentences, clear to auscultation bilaterally HEART: Regular rate and rhythm, normal S1 and S2, no murmurs, rubs or gallops, peripheral pulses normal and equal bilaterally. ABDOMEN: Soft, nontender, normoactive bowel sounds. No guarding, no rebound. No masses RECTAL: Non thrombosed hemorrhoid, active bright red bleeding, and small clotting from anus. Neg anal fissures. EXTREMITIES : Normal inspection, Normal range of motion, no edema. No clubbing or cyanosis. NEUROLOGICAL: Cranial nerves II through XII grossly intact. Normal speech, normal gait, no focal sensorimotor deficits SKIN: Warm, Dry, normal turgor, no rashes or lesions noted Moderate Sedation - Procedure Monitoring Vital Signs: Procedure Monitoring Vital Signs Temperature 97.9 F 12/16/18 18:14 Pulse Rate 75 12/16/18 18:14 Respiratory Rate 20 12/16/18 18:14 Blood Pressure 160/100 12/16/18 18:14 O2 Sat by Pulse Oximetry (%) 97 12/16/18 18:14 ED Treatment Course - LABORATORY CBC & Chemistry Diagram: 12/16/18 18:40 12/16/18 18:40 Medical Decision Making - Medical Decision Making 12/16/18 18:38 88 yo F with HTN, CHF, Afib on Coumadin, and Plavix, CAD s/p stent placements, Ao stenosis, Mitral Insuffiency, Pulm HTN, Diverticulitis, SBO (2012), Hemmorhoids, Ischemic Colitis (2012), Cholecystectomy, Neurogenic Bladder s/p bladder stimulator who p/w rectal bleeding beginning at 400 PM. Vitals wnl, AF, A&Ox3. Denies F/C, NV,abdominal pain, CP, SOB. + Non thrombosed hemorrhoid, active bright red bleeding, and small clotting from anus. Absent abdominal ttp.Will assess for rectal bleed and acute blood loss anemia. Low suspcion UGI bleed. Will consider source of lower GI bleed. Differential includes diverticulosis, ischemic colitis, mesenteric ischemia, Aortoenteric fistula. vs , hemorrhoidal bleed. ED Course: 12/16/18 19:12 Awaiting call back H/H:7.0/ 33.4 INR: 2.56 FOBT: POS 12/16/18 19:22 Patient endorsed and accepted by Dr. Jacque Richardson 2 U PRBC CMP: Unremarkable 12/16/18 19:[address] Caputo answering service contacted. Awaiting call back. *DC/Admit/Observation/Transfer Diagnosis at time of Disposition: Rectal bleeding - Discharge Dispostion Condition at time of disposition: Stable Decision to Admit order: Yes - Referrals - Patient Instructions - Post Discharge Activity - Attestations Physician Attestion: 12/16/18 18:36 I attest to the information provided in this note.
[2018-12-16 18:54] LABS: BASO % 1.2 % (0-2.0); EOS % 1.7 % (0-4.5); HEMATOCRIT 33.4 % (32.4-45.2); HEMOGLOBIN 11.3 GM/dL (10.7-15.3); LYMPH % 10.8 % (8-40); MCHC 33.9 g/dl (32.0-36.0); MEAN CELL VOLUME 91.6 fl (80-96); MONO % 10.4 % (3.8-10.2); NEUT % 75.9 % (42.8-82.8); PLATELET COUNT 241 K/MM3 (134-434); RBC 3.65 M/mm3 (3.60-5.2); RDW 15.9 % (11.6-15.6)
--- NOTE | 2018-12-16 18:58 | PDOC ---
Attending Attestation - Resident Resident Name: Diego Hartmanson - ED Attending Attestation I have performed the following: I have examined & evaluated the patient, The case was reviewed & discussed with the resident, I agree w/resident's findings & plan, Exceptions are as noted - Medical Decision Making 12/16/18 18:55 I, Dr. Xenia Michel, DO, attest that this document has been prepared under my direction and personally reviewed by me in its entirety. I further attest, that it accurately reflects all work, treatment, procedures and medical decision -making performed by me. 12/16/18 18:55 a/p: 88yo female with rectal bleeding on coumadin -has hemorrhoids, but not hemorrhoid bleeding, instead clots and BRB coming from the rectum -abd soft, no ttp -INR was 2.9 yesterday -will send labs, npo, type and screen -GI dr. caputo -will need admission 12/16/18 18:58 vss at this time <Xenia Michel - Last Filed: 12/16/18 18:59> - HPI HPI: 12/16/18 19:28 The patient is a 88 year old female, with a significant past medical history of HTN, CHF, Afib (on Coumadin and Plavix), CAD (s/p stenting), Ao stenosis, Mitral Insufficiency, Pulm HTN, Diverticulitis, SBO (2012), Hemorrhoids, Ischemic Colitis (2012), Neurogenic Bladder (s/p bladder stimulator), who presents to the emergency department with, rectal bleeding (> one cup). As per patient, her rectal bleeding onset at 4pm prior to the onset of her symptoms she had 3 soft BM after which she began having musa, bright red blood coming from her rectum. She endorses doing 2 sit baths, without relief, prompting her arrival to the ED. The last time she checked her Coumadin was yesterday (12/15) at which time it was 2.9. She denies recent fevers, chills, headache or dizziness. She denies recent nausea, vomit, or constipation. She denies recent dysuria, frequency, urgency or hematuria. She denies recent chest pain or shortness of breath. Allergies: Erythromycin base. Social history: Nonsmoker. Denies EtOH use and recreational drug use. Primary Care Physician: Dr. Richardson GI: Dr. Caputo (Last visit ?09/2018) - Physicial Exam PE: 12/16/18 19:28 Constitutional: Awake, alert, oriented. No acute distress. Head: Normocephalic. Atraumatic Neck: Supple. Full ROM. No lymphadenopathy. Cardiovascular: Regular rate. Regular rhythm. S1, S2 regular. Distal pulses are 2+ and symmetric. Pulmonary/Chest: No evidence of respiratory distress. Clear to auscultation bilaterally No wheezing, rales or rhonchi. Abdominal: Soft and non-distended. There is no tenderness. No rebound, guarding or rigidity. No organomegaly. No palpable masses. Good bowel sounds. +Rectal: Large hemorrhoids and blood with large clots coming from the rectum. Back: No CVA tenderness. Musculoskeletal: No edema. No cyanosis. No clubbing. Full range of motion in all extremities. No calf tenderness. Radial/pedal pulses are intact and 2+ bilaterally Skin: Skin is warm and dry. No petechiae. No purpura. Neurological: Alert and oriented to person, place, and time. Cranial nerves II -XII are grossly intact. Normal speech. Strength is grossly symmetric. No sensory deficits. Psychiatric: Good eye contact. Normal interaction, affect and behavior. - Medical Decision Making 12/16/18 19:[address] Richardson's answering service, resident discussed case. Call placed to Dr. Caputo's answering service, made aware Dr. Davis will be covering; awaiting call back. <Polly Sal - Last Filed: 12/16/18 19:30> Heart Score/ECG Review - ECG Intrepretation Comment:: 12/16/18 18:59 sinus at 71, l axis deviation, nl interval, no acute st/t wave findings <Xenia Michel - Last Filed: 12/16/18 18:59> Attestations - Attestations 12/16/18 19:28 Documentation prepared by Polly Sal, acting as medical practice administrator for Shahnaz Arana MD. <Polly Sal - Last Filed: 12/16/18 19:30>
[2018-12-16 19:07] LABS: INR 2.56 (0.83-1.09); PROTHROMBIN TIME (PATIENT) 30.5 SEC (9.7-13.0)
[2018-12-16 19:36] LABS: ALBUMIN 2.8 g/dl (3.4-5.0); ALK PHOS 96 U/L (45-117); ANION GAP 8 MMOL/L (8-16); BILIRUBIN,TOTAL 0.6 mg/dL (0.2-1); BLOOD UREA NITROGEN 17 mg/dL (7-18); CHLORIDE 99 mmol/L (98-107); CO2 29 mmol/L (21-32); CREATININE 0.8 mg/dL (0.55-1.3); GLUCOSE,RANDOM 105 mg/dL (74-106); POTASSIUM 3.7 mmol/L (3.5-5.1); SGOT/AST 16 U/L (15-37); SGPT/ALT 14 U/L (13-61); SODIUM 136 mmol/L (136-145); TOT PROT 7.7 g/dl (6.4-8.2)
[2018-12-16 22:11] LABS: URINE APPEARANCE SLCLOUDY; URINE BILIRUBIN NEGATIVE (<2.0 mg/dL); URINE COLOR YELLOW; URINE GLUCOSE (UA) NEGATIVE (NEGATIVE); URINE KETONE NEGATIVE (NEGATIVE); URINE LEUK ESTERASE 1+ (NEGATIVE); URINE NITRITE NEGATIVE (NEGATIVE); URINE PROTEIN 1+ (NEGATIVE); URINE UROBILINOGEN NEGATIVE mg/dL (0.2-1.0)
[2018-12-16 22:21] LABS: EPI CELLS MODERATE /HPF (FEW); URINE BACTERIA RARE /hpf (NONE SEEN); URINE MUCUS RARE
[2018-12-16] MEDS ORDERED: PANTOPRAZOLE SODIUM 40 MG VIAL IVPUSH ONE (22:33)
[2018-12-17] MEDS: SODIUM CHLORIDE 1,000 ML IV SCH (05:02)
[2018-12-17 05:58] LABS: HEMATOCRIT 34.5 % (32.4-45.2); HEMOGLOBIN 11.9 GM/dL (10.7-15.3); MCH 30.6 pg (25.7-33.7); MCHC 34.5 g/dl (32.0-36.0); MEAN CELL VOLUME 88.7 fl (80-96); MEAN PLT VOLUME 7.8 fl (7.5-11.1); PLATELET COUNT 200 K/MM3 (134-434); RBC 3.89 M/mm3 (3.60-5.2); RDW 17.7 % (11.6-15.6); WHITE BLOOD COUNT 5.6 K/mm3 (4.0-10.0)
[2018-12-17 06:27] LABS: ALBUMIN 2.6 g/dl (3.4-5.0); ALK PHOS 90 U/L (45-117); ANION GAP 5 MMOL/L (8-16); BILIRUBIN,TOTAL 1.6 mg/dL (0.2-1); BLOOD UREA NITROGEN 12 mg/dL (7-18); CALCIUM 8.6 mg/dL (8.5-10.1); CHLORIDE 102 mmol/L (98-107); CO2 32 mmol/L (21-32); CREATININE 0.7 mg/dL (0.55-1.3); GLUCOSE,RANDOM 86 mg/dL (74-106); POTASSIUM 3.7 mmol/L (3.5-5.1); SGOT/AST 14 U/L (15-37); SGPT/ALT 13 U/L (13-61); SODIUM 138 mmol/L (136-145); TOT PROT 7.2 g/dl (6.4-8.2)
[2018-12-17] MEDS: LEVOTHYROXINE NA 75 MCG TABLET (FP) PO SCH (06:56)
[2018-12-17] MEDS ORDERED: PT OWN MED DRAWER 7, Y5N ONE ×3 (09:08→21:08)
[2018-12-17] MEDS: PANTOPRAZOLE SODIUM 40 MG VIAL IVPUSH SCH (09:20)
[2018-12-17] MEDS: TIMOLOL 0.5% OPHTHALMIC SOL 5 ML BOTTLE OU SCH ×2 (09:21→21:45)
[2018-12-17] MEDS: AMIODARONE HCL 200 MG TABLET (FP) PO SCH (09:21)
[2018-12-17] MEDS: FUROSEMIDE 20 MG TABLET (FP) PO SCH (09:21)
[2018-12-17] MEDS: DORZOLAMIDE 2% HCL OPHTHALMIC SOLUTION 10 ML BOTTLE OD SCH ×2 (09:22→21:45)
[2018-12-17] MEDS: BRIMONIDINE TARTRATE 0.2% OPHTHALMIC 5 ML BOTTLE OU SCH ×2 (09:22→21:45)
[2018-12-17] MEDS ORDERED: PATIENT'S OWN MEDICATION (NON-FORMULARY) (Brimonidine Tartrate/Timolol [Combigan 0.2%-0.5% OP SCH (10:00)
--- NOTE | 2018-12-17 12:10 | HP ---
Admitting History and Physical - Primary Care Physician PCP: Gabe Richardson - Admission Chief Complaint: Rectal bleed History of Present Illness: Pt with significant Hx/o CAD on Plavix, A Fib on Coumadin, Diverticulitis, Ischemic colitis, Hemorrhoids, s/p Sx, starteds to ve BRBPR yesterday afternoon, about 4 PM, " like nothing before"; pt come to ER, received 2 units of PRBC and was admitted to medical floor. This AM with minimal bleed. 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 Malik, ? 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 ) Infectious Disease: Yes: Herpes Zoster (2008) Musculoskeletal: Yes: Chronic low back pain, Osteoarthritis, Other (Spinal stenosis and C spine fracture.) Endocrine: Yes: Hypothyroidism - Past Surgical History Past Surgical History: Yes: Appendectomy, Cataract Removal, Cholecystectomy, Colonoscopy, Hysterectomy, Permanent Pacemaker, Tonsillectomy, Upper Endoscopy Additional Past Surgical History: Hemorrhoid surgery - Advance Directives Advance Directives: Yes: Health Care Proxy, DNR - Smoking History Smoking history: Unknown if ever smoked Have you smoked in the past 12 months: No Aproximately how many cigarettes per day: 0 - Alcohol/Substance Use Hx Alcohol Use: No History of Substance Use: reports: None - Social History ADL: Independent 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 History of Recent Travel: No Home Medications - Allergies Allergies/Adverse Reactions: Allergies Allergy/AdvReac Type Severity Reaction Status Date / Time erythromycin base Allergy Unknown abdominal Verified 12/16/18 18:15 [Erythromycin Base] pain - Home Medications Home Medications: Ambulatory Orders Metoprolol Succinate [Toprol Xl] 200 mg PO DAILY 11/08/18 Amiodarone HCl [Cordarone -] 200 mg PO DAILY #0 tab 11/17/18 Brimonidine Tartrate/Timolol [Combigan 0.2%-0.5% Eye Drops] 10 ml OP BID #0 bottle 11/17/18 Clopidogrel Bisulfate [Plavix] 75 mg PO DAILY #0 tab 11/17/18 Dorzolamide HCl [Trusopt] 10 ml OD BID #0 drop 11/17/18 Furosemide [Lasix] 20 mg PO DAILY #0 tab 11/17/18 Latanoprost 0.005% Eye Drops [Xalatan 0.005% Eye Drops -] 1 drop OU HS #0 drop 11/17/18 Levothyroxine [Synthroid -] 75 mcg PO DAILY #0 tab 11/17/18 Pantoprazole Sodium [Protonix] 40 mg PO DAILY #0 tab 11/17/18 Simvastatin [Zocor -] 20 mg PO HS #0 tab 11/17/18 Warfarin Na [Coumadin -] 2 mg PO DAILY@1800 tablet 11/17/18 Family Disease History - Family Disease History Family Disease History: Diabetes: Brother (colon adenoma), Heart Disease: Father ( 76, H/O alcohol), Mother (,CKD), Brother, [place]: Son (brainneoplasm), Other: Father, Brother Review of Systems - Review of Systems Constitutional: denies: Chills, Fever Eyes: denies: Blurred Vision, Double Vision HENT: denies: Difficult Swallowing, Ear Discharge, Nasal Congestion, Throat Pain Neck: denies: Pain on Movement, Stiffness Cardiovascular: denies: Chest Pain, Edema, Palpitations Respiratory: reports: Cough (lingerying after was treated for Acute Bronchitis) . denies: Hemoptysis, SOB on Exertion, Wheezing Gastrointestinal: denies: Abdominal Pain, Diarrhea, Nausea, Vomiting Genitourinary: denies: Burning, Dysuria Musculoskeletal: denies: Back Pain, Muscle Pain Integumentary: denies: Bruising, Eczema, Rash Neurological: reports: Weakness (since in the last month and an half was in [facility] and Rehab). denies: Change in LOC, Change in Speech, Confusion, Dizziness, Unsteady Gait Endocrine: denies: Excessive Sweating, Intolerance to Cold Hematology/Lymphatic: denies: Easily Bruised, Excessive Bleeding Psychiatric: denies: Anxiety, Depression Physical Examination Vital Signs: Vital Signs Temperature 98 F 12/17/18 10:00 Pulse Rate 68 12/17/18 10:00 Respiratory Rate 20 12/17/18 10:00 Blood Pressure 158/92 12/17/18 10:00 O2 Sat by Pulse Oximetry (%) 94 L 12/17/18 10:00 Constitutional: Yes: No Distress, Calm Eyes: Yes: Conjunctiva Clear, EOM Intact HENT: Yes: Normocephalic. No: Epistaxis, Rhinnorhea Neck: Yes: Trachea Midline. No: Lymphadenopathy Cardiovascular: Yes: Regular Rate and Rhythm, Murmur, S1, S2 Respiratory: Yes: Regular, CTA Bilaterally, Rhonchi. No: Rales Gastrointestinal: Yes: Normal Bowel Sounds, Tenderness (minimal in Right LLQ). No: Tenderness, Epigastrium, Tenderness, Rebound ...Rectal Exam: Yes: Deferred Breast(s): Yes: Other (deferred) Musculoskeletal: No: Back Pain, Joint Swelling Extremities: No: Cold, Cool Edema: No Integumentary: No: Bruising, Jaundice, Rash Neurological: Yes: Alert, Oriented, Other (motor and sensory examination is symmetric in UE/ LE/ face) Psychiatric: Yes: Alert, Oriented Labs: CBC, BMP 12/17/18 05:50 12/17/18 05:50 Problem List - Problems (1) Rectal bleeding Code(s): K62.5 - HEMORRHAGE OF ANUS AND RECTUM (2) Atrial fibrillation Code(s): I48.91 - UNSPECIFIED ATRIAL FIBRILLATION Qualifiers: Atrial fibrillation type: paroxysmal Qualified Code(s): I48.0 - Paroxysmal atrial fibrillation (3) Coronary artery disease Code(s): I25.10 - ATHSCL HEART DISEASE OF [place] CORONARY ARTERY W/O ANG PCTRS Qualifiers: Coronary Disease-Associated Artery/Lesion type: [place] artery [place] vs. transplanted heart: [place] heart Associated angina: without angina Qualified Code(s): I25.10 - Atherosclerotic heart disease of [place] coronary artery without angina pectoris (4) Aortic stenosis Code(s): I35.0 - NONRHEUMATIC AORTIC (VALVE) STENOSIS (5) Mitral valve insufficiency Code(s): I34.0 - NONRHEUMATIC MITRAL (VALVE) INSUFFICIENCY (6) Diverticulosis Code(s): K57.90 - DVRTCLOS OF INTEST, PART UNSP, W/O PERF OR ABSCESS W/O BLEED (7) Ischemic colitis Code(s): K55.9 - VASCULAR DISORDER OF INTESTINE, UNSPECIFIED (8) CHF (congestive heart failure) Code(s): I50.9 - HEART FAILURE, UNSPECIFIED Assessment/Plan S/p 2 units of PRBC H/H stable GI consult Cadio consult; Plavix and Coumadin on hold for now. Pt's conditon was reviewd with pt; all questions were answered. Case was reviewed with pt's nurse. AM labs.
[2018-12-17 12:50] LABS: INR 2.74 (0.83-1.09); PROTHROMBIN TIME (PATIENT) 32.7 SEC (9.7-13.0)
--- NOTE | 2018-12-17 14:39 | CON.CARD ---
Consult Consult Specialty:: Cardiology Referred by:: Jacque Richardson MD Reason for Consultation:: CAD s/p AGUEDA, severe planned for TAVR - History of Present Illness Chief Complaint: Rectal bleed History of Present Illness: 88-year-old female history of 2 vessel CAD s/p recent rotational atherectomy and AGUEDA of LAD 10/2018 c/b microperforation, pericarditis, diastolic dysfunction , severe aortic stenosis, hypertension, cardioinhibitory/carotid hypersensitivity s/p pacemaker, hyperlipidemia, parxysmal A.fib on Coumadin [id number], hypothyroidisms/p appy, cholecystectomy and hysterectomy, diverticulosis/itis, GERD, CBD s/p ERCP, stent placement and stone retrieval, bladder stimulator for urinary frequency, fecal impaction presented for painless BRBPR yesterday afternoon without nausea, emesis, melena, chest pain, dyspnea, near or true syncope, orthopnea, PND or LE edema. Pt come to ER, received 2 units of PRBC and was admitted to medical floor. This AM with minimal bleed. 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: Other (macular degeneration) Cardio/Vascular: Yes: AFIB, Aortic Stenosis (0.7cm), HTN, Hyperlipdemia, Mitral Insufficiency, Pulmonary Hypertension, Other (Episodes of vaso-depressive syncope, has PPM) Gastrointestinal: Yes: Diverticulitis (02/21), Diverticulosis, Hemorrhoids, Other (SBO in 10/26, ischemic colitis 10/26) Hepatobiliary: Yes: Cholelithiasis (s/pcholecsytectomy), Choledocholithiasis ( ERCP/sphincerotomy for CBD stone) Renal/: Yes: Neurogenic Bladder (had bladder stimulator placed) ...: No Infectious Disease: Yes: Herpes Zoster (2008) Musculoskeletal: Yes: Chronic low back pain, Osteoarthritis, Other (Spinal stenosis and C spine fracture.) Endocrine: Yes: Hypothyroidism Additional Medical History: Fibrocystic breast disease. Macular degeneration. Herpes Zoster 2008. Ischemic colitis and SBO 2012. Diverticulitis 02/21. C spine fracture. Spinal stenosis. 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 History of Recent Travel: No Home Medications - Allergies Allergies/Adverse Reactions: Allergies Allergy/AdvReac Type Severity Reaction Status Date / Time erythromycin base Allergy Unknown abdominal Verified 12/16/18 18:15 [Erythromycin Base] pain - Home Medications Home Medications: Ambulatory Orders Metoprolol Succinate [Toprol Xl] 200 mg PO DAILY 11/08/18 Amiodarone HCl [Cordarone -] 200 mg PO DAILY #0 tab 11/17/18 Brimonidine Tartrate/Timolol [Combigan 0.2%-0.5% Eye Drops] 10 ml OP BID #0 bottle 11/17/18 Clopidogrel Bisulfate [Plavix] 75 mg PO DAILY #0 tab 11/17/18 Dorzolamide HCl [Trusopt] 10 ml OD BID #0 drop 11/17/18 Furosemide [Lasix] 20 mg PO DAILY #0 tab 11/17/18 Latanoprost 0.005% Eye Drops [Xalatan 0.005% Eye Drops -] 1 drop OU HS #0 drop 11/17/18 Levothyroxine [Synthroid -] 75 mcg PO DAILY #0 tab 11/17/18 Pantoprazole Sodium [Protonix] 40 mg PO DAILY #0 tab 11/17/18 Simvastatin [Zocor -] 20 mg PO HS #0 tab 11/17/18 Warfarin Na [Coumadin -] 2 mg PO DAILY@1800 tablet 11/17/18 Family Disease History - Family Disease History Family Disease History: Diabetes: Brother (colon adenoma), Heart Disease: Father ( 76, H/O alcohol), Mother (,CKD), Brother, [place]: Son (brainneoplasm), Other: Father, Brother Review of Systems - Review of Systems Gastrointestinal: reports: Rectal Bleeding Vital Signs: Vital Signs Temperature 98 F 12/17/18 10:00 Pulse Rate 68 12/17/18 10:00 Respiratory Rate 20 12/17/18 10:00 Blood Pressure 158/92 12/17/18 10:00 O2 Sat by Pulse Oximetry (%) 94 L 12/17/18 10:00 Constitutional: Yes: No Distress, Calm, Thin Neck: Yes: Supple Respiratory: Yes: Regular, Diminished Gastrointestinal: Yes: Normal Bowel Sounds, Soft Cardiovascular: Yes: Regular Rate and Rhythm JVD: No Carotid Bruit: No Heart Sounds: Yes: S1, S2 Murmur: Yes: Systolic Murmur, Grade 2 Edema: No - Other Data Labs, Other Data: CBC, BMP 12/17/18 05:50 12/17/18 05:50 INR, PTT INR 2.74 (0.83-1.09) H 12/17/18 12:30 Troponin, BNP 12/16/18 18:50 Troponin I 0.03 Troponin, BNP 12/16/18 18:50 Troponin I 0.03 A-paced @ 60 Prior Cardiac Procedures: PTCA with Stent Ejection Fraction %: LVEF > or = 40 % Problem List - Problems (1) Aortic stenosis Code(s): I35.0 - NONRHEUMATIC AORTIC (VALVE) STENOSIS Qualifiers: Cardiac valve disease etiology: nonrheumatic Qualified Code(s): I35.0 - Nonrheumatic aortic (valve) stenosis (2) Diverticulosis Code(s): K57.90 - DVRTCLOS OF INTEST, PART UNSP, W/O PERF OR ABSCESS W/O BLEED Qualifiers: Diverticulosis site: unspecified location (3) Rectal bleeding Code(s): K62.5 - HEMORRHAGE OF ANUS AND RECTUM (4) Coronary artery disease Code(s): I25.10 - ATHSCL HEART DISEASE OF [place] CORONARY ARTERY W/O ANG PCTRS Qualifiers: Coronary Disease-Associated Artery/Lesion type: [place] artery [place] vs. transplanted heart: [place] heart Associated angina: without angina Qualified Code(s): I25.10 - Atherosclerotic heart disease of [place] coronary artery without angina pectoris (5) Diastolic CHF Code(s): I50.30 - UNSPECIFIED DIASTOLIC (CONGESTIVE) HEART FAILURE Qualifiers: Heart failure chronicity: chronic Qualified Code(s): I50.32 - Chronic diastolic (congestive) heart failure (6) Elevated INR Code(s): R79.1 - ABNORMAL COAGULATION PROFILE (7) History of cardioversion Code(s): Z98.890 - OTHER SPECIFIED POSTPROCEDURAL STATES (8) Hyperlipidemia Code(s): E78.5 - HYPERLIPIDEMIA, UNSPECIFIED Qualifiers: Hyperlipidemia type: pure hypercholesterolemia Qualified Code(s): E78.00 - Pure hypercholesterolemia, unspecified (9) Hypertension Code(s): I10 - ESSENTIAL (PRIMARY) HYPERTENSION Qualifiers: Hypertension type: essential hypertension Qualified Code(s): I10 - Essential (primary) hypertension (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 Code(s): I11.9 - HYPERTENSIVE HEART DISEASE WITHOUT HEART FAILURE (11) Hypothyroidism Code(s): E03.9 - HYPOTHYROIDISM, UNSPECIFIED Qualifiers: Hypothyroidism type: unspecified Qualified Code(s): E03.9 - Hypothyroidism , unspecified (12) Neurocardiogenic syncope Code(s): R55 - SYNCOPE AND COLLAPSE (13) Pacemaker Code(s): Z95.0 - PRESENCE OF CARDIAC PACEMAKER (14) Paroxysmal atrial fibrillation Code(s): I48.0 - PAROXYSMAL ATRIAL FIBRILLATION (15) S/P coronary artery stent placement Code(s): Z95.5 - PRESENCE OF CORONARY ANGIOPLASTY IMPLANT AND GRAFT (16) Severe aortic stenosis Code(s): I35.0 - NONRHEUMATIC AORTIC (VALVE) STENOSIS Assessment/Plan 11/17/2017 CARLI: Normal LV size with low normal LV fxn, mod GINA, no LCARK thrombus or shunts, severe , mod MR, TR 1. Hematochezia etiology to be determined 2. LV diastolic dysfunction with h/o failure 3. Severe aortic valve stenosis 4. Paroxysmal atrial fibrillation post CARLI-guided DCCV on coumadin with therapeutic INR and pacemaker mediated tachycardia 5. CAD s/p rotational atherectomy and AGUEDA LAD angina pectoris 6. Post coronary perforation pericarditis post colchicine course 7. 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 HTN/HCVD 9. Hyperlipidemia 10. Hypothyroidism 11. CKD 12. Retained stones post cholecystectomy with biliary duct dilatation post therapeutic ERCP/sphincterotomy and biliary stent 13. 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 Please resume Plavix 75 qd despite hematochezia given recent AGUEDA implant 2 months ago and concomitant risk of acute stent thrombosis off all antiplatelet agents. Hold coumadin pending hemostasis. 2. Continue Furosemide 20 mg QD, Amiodarone 200 mg QD, and Toprol XL 200 mg QD 3. Continue Lipitor 20 mg QHS and Losartan 25 mg QD and follow renal function. Colchicine therapy has been completed 4. Await GI evaluation, TAVR evaluation as outpatient 5. Thank you for consultative opportunity
--- NOTE | 2018-12-17 15:40 | EKG ---
Test Reason : Blood Pressure : / mmHG Vent. Rate : 071 BPM Atrial Rate : 071 BPM P-R Int : 196 ms QRS Dur : 098 ms QT Int : 430 ms P-R-T Axes : 076 -38 068 degrees QTc Int : 467 ms NORMAL SINUS RHYTHM LEFT AXIS DEVIATION INCOMPLETE RIGHT BUNDLE BRANCH BLOCK SEPTAL INFARCT (CITED ON OR BEFORE 16-NOV-2018) ABNORMAL ECG WHEN COMPARED WITH ECG OF 16-NOV-2018 11:11, SINUS RHYTHM HAS REPLACED ELECTRONIC ATRIAL PACEMAKER INCOMPLETE RIGHT BUNDLE BRANCH BLOCK IS NOW PRESENT Confirmed by MITUL HALEY MD ([id number]) on 12/17/2018 3:39:45 PM Referred By: Confirmed By:MITUL HALEY MD
[2018-12-17] MEDS: CLOPIDOGREL BISULFATE 75 MG TABLET (FP) PO SCH (17:42)
[2018-12-17] MEDS: ATORVASTATIN CA 20 MG TABLET (FP) PO SCH (21:45)
[2018-12-17] MEDS: LATANOPROST 0.005% OPHTH SOLN 2.5ML BOTTLE OU SCH (21:46)
[2018-12-18] MEDS: SODIUM CHLORIDE 1,000 ML IV SCH (04:03)
[2018-12-18] MEDS: LEVOTHYROXINE NA 75 MCG TABLET (FP) PO SCH (06:44)
[2018-12-18 06:48] LABS: HEMATOCRIT 36.6 % (32.4-45.2); HEMOGLOBIN 12.6 GM/dL (10.7-15.3); MCH 30.8 pg (25.7-33.7); MCHC 34.4 g/dl (32.0-36.0); MEAN CELL VOLUME 89.6 fl (80-96); MEAN PLT VOLUME 8.5 fl (7.5-11.1); PLATELET COUNT 204 K/MM3 (134-434); RBC 4.09 M/mm3 (3.60-5.2); RDW 17.4 % (11.6-15.6); WHITE BLOOD COUNT 4.5 K/mm3 (4.0-10.0)
[2018-12-18 07:17] LABS: INR 3.28 (0.83-1.09); PROTHROMBIN TIME (PATIENT) 39.2 SEC (9.7-13.0)
--- NOTE | 2018-12-18 07:22 | CON.GI ---
Consult Consult Specialty:: GI Referred by:: Dr Richardson - History of Present Illness History of Present Illness: Covering for Dr Caputo 88 y/o F with history of severe diverituculosis, s/p incomplete colonoscopy, s/ p hemorhoidectomy 03/2017,s/p ERCP for CBD stone, s/p EGD dilation for Schatzki' s ring was doing well until 4 pm Tuesday when she developed severe rectal bleeding for 2 hours. She received 2 units of PRBC. As an outpatient she is on Coumadin and Plavix for A-Fib. For the past 24 hours, there was minimal staining in her underwear. 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: Other (macular degeneration) Cardio/Vascular: Yes: AFIB, Aortic Stenosis (0.7cm), HTN, Hyperlipdemia, Mitral Insufficiency, Pulmonary Hypertension, Other (Episodes of vaso-depressive syncope, has PPM) Gastrointestinal: Yes: Diverticulitis (02/21), Diverticulosis, Hemorrhoids, Other (SBO in 10/26, ischemic colitis 10/26) Hepatobiliary: Yes: Cholelithiasis (s/pcholecsytectomy), Choledocholithiasis ( ERCP/sphincerotomy for CBD stone) Renal/: Yes: Neurogenic Bladder (had bladder stimulator placed) ...: No Infectious Disease: Yes: Herpes Zoster (2008) Musculoskeletal: Yes: Chronic low back pain, Osteoarthritis, Other (Spinal stenosis and C spine fracture.) Endocrine: Yes: Hypothyroidism Additional Medical History: Fibrocystic breast disease. Macular degeneration. Herpes Zoster 2008. Ischemic colitis and SBO 2012. Diverticulitis 02/21. C spine fracture. Spinal stenosis. 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 History of Recent Travel: No Home Medications - Allergies Allergies/Adverse Reactions: Allergies Allergy/AdvReac Type Severity Reaction Status Date / Time erythromycin base Allergy Unknown abdominal Verified 12/16/18 18:15 [Erythromycin Base] pain - Home Medications Home Medications: Ambulatory Orders Metoprolol Succinate [Toprol Xl] 200 mg PO DAILY 11/08/18 Amiodarone HCl [Cordarone -] 200 mg PO DAILY #0 tab 11/17/18 Brimonidine Tartrate/Timolol [Combigan 0.2%-0.5% Eye Drops] 10 ml OP BID #0 bottle 11/17/18 Clopidogrel Bisulfate [Plavix] 75 mg PO DAILY #0 tab 11/17/18 Dorzolamide HCl [Trusopt] 10 ml OD BID #0 drop 11/17/18 Furosemide [Lasix] 20 mg PO DAILY #0 tab 11/17/18 Latanoprost 0.005% Eye Drops [Xalatan 0.005% Eye Drops -] 1 drop OU HS #0 drop 11/17/18 Levothyroxine [Synthroid -] 75 mcg PO DAILY #0 tab 11/17/18 Pantoprazole Sodium [Protonix] 40 mg PO DAILY #0 tab 11/17/18 Simvastatin [Zocor -] 20 mg PO HS #0 tab 11/17/18 Warfarin Na [Coumadin -] 2 mg PO DAILY@1800 tablet 11/17/18 Family Disease History - Family Disease History Family Disease History: Diabetes: Brother (colon adenoma), Heart Disease: Father ( 76, H/O alcohol), Mother (,CKD), Brother, [place]: Son (brainneoplasm), Other: Father, Brother Review of Systems - Review of Systems Constitutional: denies: No Symptoms, Chills, Diaphoresis, Fever, Lethargy, Loss of Appetite, Malaise, Night Sweats, Unintentional Wgt. Loss, Weakness, Other Eyes: denies: No Symptoms, Blind Spots, Blurred Vision, Double Vision, Eye Pain , Floaters, Photophobia, Recent Change in Vision, Other HENT: denies: No Symptoms, Difficult Swallowing, Ear Discharge, Ear Pain, Epistaxis, Gingival Bleeding, Hearing Loss, Mouth Swelling, Nasal Congestion, Ocular Prosthesis, Throat Pain, Toothache, Ringing in Ears, Other Neck: denies: No Symptoms, Decreased ROM, Lumps, Pain on Movement, Stiffness, Swollen Glands, Tenderness, Other Gastrointestinal: reports: Rectal Bleeding. denies: Bloating, Constipation, Diarrhea, Dysphagia, Vomiting Blood Physical Exam-GI Vital Signs: Vital Signs Temperature 98.5 F 12/18/18 06:00 Pulse Rate 77 12/18/18 06:00 Respiratory Rate 20 12/18/18 06:00 Blood Pressure 144/85 12/18/18 06:00 O2 Sat by Pulse Oximetry (%) 95 12/17/18 23:07 Constitutional: Yes: No Distress Eyes: Yes: Conjunctiva Clear HENT: Yes: Atraumatic Neck: Yes: Trachea Midline Cardiovascular: Yes: Regular Rate and Rhythm, Murmur Respiratory: Yes: CTA Bilaterally ...Palpate: Yes: Soft. No: Firm/Rigid, Guarding, Hepatomegaly, Pulsatile Mass, Splenomegaly, Tenderness ...Rectal Exam: Yes: Sphincter Tone Normal, Other (prolapsed external hemorrhoids, no active bleeding) Labs: CBC, BMP 12/18/18 05:30 INR, PTT INR 2.74 (0.83-1.09) H 12/17/18 12:30 Home Medications Medication Instructions Recorded Metoprolol Succinate [Toprol Xl] 200 mg PO DAILY 11/08/18 Amiodarone HCl [Cordarone -] 200 mg PO DAILY #0 tab 11/17/18 Brimonidine Tartrate/Timolol 10 ml OP BID #0 bottle 11/17/18 [Combigan 0.2%-0.5% Eye Drops] Clopidogrel Bisulfate [Plavix] 75 mg PO DAILY #0 tab 11/17/18 Dorzolamide HCl [Trusopt] 10 ml OD BID #0 drop 11/17/18 Furosemide [Lasix] 20 mg PO DAILY #0 tab 11/17/18 Latanoprost 0.005% Eye Drops 1 drop OU HS #0 drop 11/17/18 [Xalatan 0.005% Eye Drops -] Levothyroxine [Synthroid -] 75 mcg PO DAILY #0 tab 11/17/18 Pantoprazole Sodium [Protonix] 40 mg PO DAILY #0 tab 11/17/18 Simvastatin [Zocor -] 20 mg PO HS #0 tab 11/17/18 Warfarin Na [Coumadin -] 2 mg PO DAILY@1800 tablet 11/17/18 Current Medications Generic Name Dose Route Start Last Admin Trade Name Freq PRN Reason Stop Dose Admin Amiodarone HCl 200 mg 12/17/18 10:00 12/17/18 09:21 Cordarone - PO 200 mg DAILY VALENTINE Administration Atorvastatin Calcium 20 mg 12/17/18 22:00 12/17/18 21:45 Lipitor - PO 20 mg HS VALENTINE Administration Brimonidine Tartrate 1 drop 12/17/18 10:00 12/17/18 21:45 Alphagan 0.2% - OU 1 drop BID VALENTINE Administration Clopidogrel Bisulfate 75 mg 12/17/18 15:00 12/17/18 17:42 Plavix - PO 75 mg DAILY VALENTINE Administration Dorzolamide HCl 1 drop 12/17/18 10:00 12/17/18 21:45 Trusopt 2% OD 1 drop BID VALENTINE Administration Furosemide 20 mg 12/17/18 10:00 12/17/18 09:21 Lasix - PO 20 mg DAILY VALENTINE Administration Sodium Chloride 1,000 mls @ 50 mls/hr 12/16/18 22:45 12/18/18 04:03 Normal Saline - IV 50 mls/hr ASDIR VALENTINE Administration Latanoprost 1 drop 12/17/18 22:00 12/17/18 21:46 Xalatan 0.005% Eye Drops - OU 1 drop HS VALENTINE Administration Levothyroxine Sodium 75 mcg 12/17/18 07:00 12/18/18 06:44 Synthroid - PO 75 mcg DAILY@0700 VALENTINE Administration Metoprolol Succinate 200 mg 12/17/18 10:00 12/17/18 09:21 Toprol Xl - PO 200 mg DAILY VALENTINE Administration Pantoprazole Sodium 40 mg 12/17/18 10:00 12/17/18 09:20 Protonix Iv IVPUSH 40 mg DAILY VALENTINE Administration Timolol Maleate 1 drop 12/17/18 10:00 12/17/18 21:45 Timoptic 0.5% OU 1 drop BID VALENTINE Administration Problem List - Problems (1) Rectal bleeding Assessment/Plan: resolved r/o secondary to prolapsed external hemorrhoids vs diverticulosis R> clear liquids anusol cream to external hemorrhoids serial CBC Code(s): K62.5 - HEMORRHAGE OF ANUS AND RECTUM
[2018-12-18 07:39] LABS: ANION GAP 9 MMOL/L (8-16); BLOOD UREA NITROGEN 13 mg/dL (7-18); CALCIUM 8.7 mg/dL (8.5-10.1); CHLORIDE 103 mmol/L (98-107); CO2 27 mmol/L (21-32); CREATININE 0.6 mg/dL (0.55-1.3); GLUCOSE,RANDOM 62 mg/dL (74-106); POTASSIUM 3.4 mmol/L (3.5-5.1); SODIUM 139 mmol/L (136-145)
--- NOTE | 2018-12-18 09:35 | PN ---
Progress Note, Physician History of Present Illness: Pt with BM this AM and bleed. Pt w/o abd pain, nausea, vomiting. Pt w/o CP, palpitations, dizziness. Pt is tolerating fluid intake well. - Current Medication List Current Medications: Active Medications Amiodarone HCl (Cordarone -) 200 mg PO DAILY [facility] Last Admin: 12/17/18 09:21 Dose: 200 mg Atorvastatin Calcium (Lipitor -) 20 mg PO HS [facility] Last Admin: 12/17/18 21:45 Dose: 20 mg Brimonidine Tartrate (Alphagan 0.2% -) 1 drop OU BID [facility] Last Admin: 12/17/18 21:45 Dose: 1 drop Clopidogrel Bisulfate (Plavix -) 75 mg PO DAILY [facility] Last Admin: 12/17/18 17:42 Dose: 75 mg Dorzolamide HCl (Trusopt 2%) 1 drop OD BID [facility] Last Admin: 12/17/18 21:45 Dose: 1 drop Furosemide (Lasix -) 20 mg PO DAILY [facility] Last Admin: 12/17/18 09:21 Dose: 20 mg Hydrocortisone (Anusol 2.5% Hc Cream -) 1 applic [place] DAILY [facility] Sodium Chloride (Normal Saline -) 1,000 mls @ 50 mls/hr IV ASDIR [facility] Last Admin: 12/18/18 04:03 Dose: 50 mls/hr Latanoprost (Xalatan 0.005% Eye Drops -) 1 drop OU [facility] Last Admin: 12/17/18 21:46 Dose: 1 drop Levothyroxine Sodium (Synthroid -) 75 mcg PO DAILY@0700 [facility] Last Admin: 12/18/18 06:44 Dose: 75 mcg Metoprolol Succinate (Toprol Xl -) 200 mg PO DAILY [facility] Last Admin: 12/17/18 09:21 Dose: 200 mg Pantoprazole Sodium (Protonix Iv) 40 mg IVPUSH DAILY [facility] Last Admin: 12/17/18 09:20 Dose: 40 mg Timolol Maleate (Timoptic 0.5%) 1 drop OU BID [facility] Last Admin: 12/17/18 21:45 Dose: 1 drop - Objective Vital Signs: Vital Signs Temperature 98.5 F 12/18/18 06:00 Pulse Rate 77 12/18/18 06:00 Respiratory Rate 20 12/18/18 06:00 Blood Pressure 144/85 12/18/18 06:00 O2 Sat by Pulse Oximetry (%) 95 12/17/18 23:07 Constitutional: Yes: No Distress, Calm Cardiovascular: Yes: Regular Rate and Rhythm, Murmur, S1, S2 Respiratory: Yes: Regular, CTA Bilaterally. No: Rales Gastrointestinal: Yes: Normal Bowel Sounds, Soft. No: Tenderness Edema: No Neurological: Yes: Alert, Oriented Labs: CBC, BMP 12/18/18 05:30 12/18/18 05:30 INR, PTT INR 3.28 (0.83-1.09) H 12/18/18 05:30 Problem List - Problems (1) Rectal bleeding Code(s): K62.5 - HEMORRHAGE OF ANUS AND RECTUM (2) Atrial fibrillation Code(s): I48.91 - UNSPECIFIED ATRIAL FIBRILLATION Qualifiers: Atrial fibrillation type: paroxysmal Qualified Code(s): I48.0 - Paroxysmal atrial fibrillation (3) Coronary artery disease Code(s): I25.10 - ATHSCL HEART DISEASE OF [place] CORONARY ARTERY W/O ANG PCTRS Qualifiers: Coronary Disease-Associated Artery/Lesion type: [place] artery [place] vs. transplanted heart: [place] heart Associated angina: without angina Qualified Code(s): I25.10 - Atherosclerotic heart disease of [place] coronary artery without angina pectoris (4) Aortic stenosis Code(s): I35.0 - NONRHEUMATIC AORTIC (VALVE) STENOSIS Qualifiers: Cardiac valve disease etiology: nonrheumatic Qualified Code(s): I35.0 - Nonrheumatic aortic (valve) stenosis (5) Mitral valve insufficiency Code(s): I34.0 - NONRHEUMATIC MITRAL (VALVE) INSUFFICIENCY (6) Diverticulosis Code(s): K57.90 - DVRTCLOS OF INTEST, PART UNSP, W/O PERF OR ABSCESS W/O BLEED Qualifiers: Diverticulosis site: unspecified location (7) Ischemic colitis Code(s): K55.9 - VASCULAR DISORDER OF INTESTINE, UNSPECIFIED (8) CHF (congestive heart failure) Code(s): I50.9 - HEART FAILURE, UNSPECIFIED Assessment/Plan S/p 2 units of PRBC H/H stable GI and Cardio consults are appreciated. Pt on Plavix secondary to recent Stent Case was reviewed with pt's nurse. AM labs.
[2018-12-18] MEDS ORDERED: PT OWN MED DRAWER 7, Y5N ONE (09:45)
[2018-12-18] MEDS: HYDROCORTISONE 2.5% TOPICAL CREAM 30 GM TUBE PR SCH (09:49)
[2018-12-18] MEDS: CLOPIDOGREL BISULFATE 75 MG TABLET (FP) PO SCH (09:54)
[2018-12-18] MEDS: FUROSEMIDE 20 MG TABLET (FP) PO SCH (09:54)
[2018-12-18] MEDS: AMIODARONE HCL 200 MG TABLET (FP) PO SCH (09:54)
[2018-12-18] MEDS: PANTOPRAZOLE SODIUM 40 MG VIAL IVPUSH SCH (09:55)
[2018-12-18] MEDS: BRIMONIDINE TARTRATE 0.2% OPHTHALMIC 5 ML BOTTLE OU SCH ×2 (09:55→21:45)
[2018-12-18] MEDS: DORZOLAMIDE 2% HCL OPHTHALMIC SOLUTION 10 ML BOTTLE OD SCH ×2 (09:55→21:44)
[2018-12-18] MEDS: TIMOLOL 0.5% OPHTHALMIC SOL 5 ML BOTTLE OU SCH ×2 (09:55→21:45)
--- NOTE | 2018-12-18 11:09 | PN ---
Progress Note, Physician History of Present Illness: Hematochezia resolving, Hgb stable post transfusion, tolerating clear liquid diet. GI recs appreciated. - Current Medication List Current Medications: Active Medications Amiodarone HCl (Cordarone -) 200 mg PO DAILY [facility] Last Admin: 12/18/18 09:54 Dose: 200 mg Atorvastatin Calcium (Lipitor -) 20 mg PO HS [facility] Last Admin: 12/17/18 21:45 Dose: 20 mg Brimonidine Tartrate (Alphagan 0.2% -) 1 drop OU BID [facility] Last Admin: 12/18/18 09:55 Dose: 1 drop Clopidogrel Bisulfate (Plavix -) 75 mg PO DAILY [facility] Last Admin: 12/18/18 09:54 Dose: 75 mg Dorzolamide HCl (Trusopt 2%) 1 drop OD BID [facility] Last Admin: 12/18/18 09:55 Dose: 1 drop Furosemide (Lasix -) 20 mg PO DAILY [facility] Last Admin: 12/18/18 09:54 Dose: 20 mg Hydrocortisone (Anusol 2.5% Hc Cream -) 1 applic [place] DAILY [facility] Last Admin: 12/18/18 09:49 Dose: 1 applic Sodium Chloride (Normal Saline -) 1,000 mls @ 50 mls/hr IV ASDIR [facility] Last Admin: 12/18/18 04:03 Dose: 50 mls/hr Latanoprost (Xalatan 0.005% Eye Drops -) 1 drop OU HS [facility] Last Admin: 12/17/18 21:46 Dose: 1 drop Levothyroxine Sodium (Synthroid -) 75 mcg PO DAILY@0700 [facility] Last Admin: 12/18/18 06:44 Dose: 75 mcg Metoprolol Succinate (Toprol Xl -) 200 mg PO DAILY [facility] Last Admin: 12/18/18 09:54 Dose: 200 mg Pantoprazole Sodium (Protonix Iv) 40 mg IVPUSH DAILY [facility] Last Admin: 12/18/18 09:55 Dose: 40 mg Timolol Maleate (Timoptic 0.5%) 1 drop OU BID [facility] Last Admin: 12/18/18 09:55 Dose: 1 drop - Objective Vital Signs: Vital Signs Temperature 98.5 F 12/18/18 06:00 Pulse Rate 77 12/18/18 06:00 Respiratory Rate 20 12/18/18 06:00 Blood Pressure 144/85 12/18/18 06:00 O2 Sat by Pulse Oximetry (%) 95 12/17/18 23:07 Constitutional: Yes: No Distress, Calm, Thin Neck: Yes: Supple Cardiovascular: Yes: Regular Rate and Rhythm, Murmur (2/6 SM) Respiratory: Yes: Regular, CTA Bilaterally Gastrointestinal: Yes: Soft, Hemorrhoids, Hypoactive Bowel Sounds, Other ( Hematochezia) Edema: No Labs: CBC, BMP 12/18/18 05:30 12/18/18 05:30 INR, PTT INR 3.28 (0.83-1.09) H 12/18/18 05:30 Problem List - Problems (1) Aortic stenosis Code(s): I35.0 - NONRHEUMATIC AORTIC (VALVE) STENOSIS Qualifiers: Cardiac valve disease etiology: nonrheumatic Qualified Code(s): I35.0 - Nonrheumatic aortic (valve) stenosis (2) Diverticulosis Code(s): K57.90 - DVRTCLOS OF INTEST, PART UNSP, W/O PERF OR ABSCESS W/O BLEED Qualifiers: Diverticulosis site: unspecified location (3) Rectal bleeding Code(s): K62.5 - HEMORRHAGE OF ANUS AND RECTUM (4) Coronary artery disease Code(s): I25.10 - ATHSCL HEART DISEASE OF [place] CORONARY ARTERY W/O ANG PCTRS Qualifiers: Coronary Disease-Associated Artery/Lesion type: [place] artery [place] vs. transplanted heart: [place] heart Associated angina: without angina Qualified Code(s): I25.10 - Atherosclerotic heart disease of [place] coronary artery without angina pectoris (5) Diastolic CHF Code(s): I50.30 - UNSPECIFIED DIASTOLIC (CONGESTIVE) HEART FAILURE Qualifiers: Heart failure chronicity: chronic Qualified Code(s): I50.32 - Chronic diastolic (congestive) heart failure (6) Elevated INR Code(s): R79.1 - ABNORMAL COAGULATION PROFILE (7) History of cardioversion Code(s): Z98.890 - OTHER SPECIFIED POSTPROCEDURAL STATES (8) Hyperlipidemia Code(s): E78.5 - HYPERLIPIDEMIA, UNSPECIFIED Qualifiers: Hyperlipidemia type: pure hypercholesterolemia Qualified Code(s): E78.00 - Pure hypercholesterolemia, unspecified (9) Hypertension Code(s): I10 - ESSENTIAL (PRIMARY) HYPERTENSION Qualifiers: Hypertension type: essential hypertension Qualified Code(s): I10 - Essential (primary) hypertension (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 Code(s): I11.9 - HYPERTENSIVE HEART DISEASE WITHOUT HEART FAILURE (11) Hypothyroidism Code(s): E03.9 - HYPOTHYROIDISM, UNSPECIFIED Qualifiers: Hypothyroidism type: unspecified Qualified Code(s): E03.9 - Hypothyroidism , unspecified (12) Neurocardiogenic syncope Code(s): R55 - SYNCOPE AND COLLAPSE (13) Pacemaker Code(s): Z95.0 - PRESENCE OF CARDIAC PACEMAKER (14) Paroxysmal atrial fibrillation Code(s): I48.0 - PAROXYSMAL ATRIAL FIBRILLATION (15) S/P coronary artery stent placement Code(s): Z95.5 - PRESENCE OF CORONARY ANGIOPLASTY IMPLANT AND GRAFT (16) Severe aortic stenosis Code(s): I35.0 - NONRHEUMATIC AORTIC (VALVE) STENOSIS Assessment/Plan 11/17/2017 CARLI: Normal LV size with low normal LV fxn, mod GINA, no CLARK thrombus or shunts, severe , mod MR, TR 1. Hematochezia resolved, r/o secondary to prolapsed external hemorrhoids vs diverticulosis 2. LV diastolic dysfunction with h/o failure 3. Severe aortic valve stenosis 4. Paroxysmal atrial fibrillation post CARLI-guided DCCV on coumadin with supratherapeutic INR and pacemaker mediated tachycardia 5. CAD s/p rotational atherectomy and AGUEDA LAD angina pectoris 6. Post coronary perforation pericarditis post colchicine course 7. 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 HTN/HCVD 9. Hyperlipidemia 10. Hypothyroidism 11. CKD 12. Retained stones post cholecystectomy with biliary duct dilatation post therapeutic ERCP/sphincterotomy and biliary stent 13. 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 Continue Plavix 75 qd despite hematochezia given recent AGUEDA implant 2 months ago and concomitant risk of acute stent thrombosis off all antiplatelet agents. Hold coumadin pending hemostasis, monitor serial Hgb. Clear liquid diet and anusol cream per GI 2. Continue Furosemide 20 mg QD, Amiodarone 200 mg QD, and Toprol XL 200 mg QD, replete K 3. Continue Lipitor 20 mg QHS and Losartan 25 mg QD and follow renal function. Colchicine therapy has been completed 4. Await GI evaluation appreciated, TAVR evaluation as outpatient
[2018-12-18] MEDS ORDERED: POTASSIUM CHLORIDE ORAL LIQUID 20 MEQ/15 ML PO ONE (11:15)
--- NOTE | 2018-12-18 12:24 | PN ---
GI Progress Note Subjective: GI NOte: Dr. Davis's coverage is appreciated. No bleeding today. No pain associated with this bleeding which has been intermittent for the past few weeks. She did receive 1 units PRBCs - Objective Vital Signs: Vital Signs Temperature 98 F 12/18/18 10:00 Pulse Rate 74 12/18/18 10:00 Respiratory Rate 18 12/18/18 10:00 Blood Pressure 157/92 12/18/18 10:00 O2 Sat by Pulse Oximetry (%) 95 12/18/18 09:00 Constitutional: Calm ...Auscultate: Yes: Normoactive Bowel Sounds ...Palpate: Yes: Soft, Other (nontender) ...Rectal Exam: Yes: Hemorrhoids/External (large prolapsing external hemorrhods with an obvious rent which suggests that this is the bleeding source) Labs: CBC, BMP 12/18/18 05:30 12/18/18 05:30 INR, PTT INR 3.28 (0.83-1.09) H 12/18/18 05:30 Assessment/Plan Advance diet Sitz baths with epsom salt then Anusol Chyna will see Dr. Epperson for hemorrhoidal surgery Problem List - Problems (1) Hematochezia Assessment/Plan: Given the finding of a tear in one of her external hemorrhoids I believe this to be the source of intermittent and this weekend's bleeding. She will need another hemorrhoidectomy and wants to Dr. Chris Epperson for this. I have advised Sitz baths with epsom salt, Anusol and Miralax to keep her stools soft until she can see him. Will advance her diet. She has been switched from warfarin to Plavix Code(s): K92.1 - MELENA (2) Aortic stenosis Code(s): I35.0 - NONRHEUMATIC AORTIC (VALVE) STENOSIS Qualifiers: Cardiac valve disease etiology: nonrheumatic Qualified Code(s): I35.0 - Nonrheumatic aortic (valve) stenosis (3) Anemia Code(s): D64.9 - ANEMIA, UNSPECIFIED (4) Atrial fibrillation Code(s): I48.91 - UNSPECIFIED ATRIAL FIBRILLATION Qualifiers: Atrial fibrillation type: paroxysmal Qualified Code(s): I48.0 - Paroxysmal atrial fibrillation (5) Bleeding hemorrhoids Code(s): K64.9 - UNSPECIFIED HEMORRHOIDS (6) Constipation Code(s): K59.00 - CONSTIPATION, UNSPECIFIED Qualifiers: Constipation type: unspecified constipation type Qualified Code(s): K59.00 - Constipation, unspecified (7) History of hemorrhoidectomy Code(s): Z98.890 - OTHER SPECIFIED POSTPROCEDURAL STATES (8) History of pacemaker Code(s): Z95.0 - PRESENCE OF CARDIAC PACEMAKER
[2018-12-18] MEDS: LOSARTAN POTASSIUM 25 MG TABLET PO SCH (12:41)
[2018-12-18 12:52] VITALS: BMI 20.9
[2018-12-18] MEDS: ATORVASTATIN CA 20 MG TABLET (FP) PO SCH (21:44)
[2018-12-18] MEDS: LATANOPROST 0.005% OPHTH SOLN 2.5ML BOTTLE OU SCH (21:45)
[2018-12-19] MEDS: LEVOTHYROXINE NA 75 MCG TABLET (FP) PO SCH (06:23)
[2018-12-19 06:51] LABS: HEMATOCRIT 34.2 % (32.4-45.2); HEMOGLOBIN 11.9 GM/dL (10.7-15.3); MCH 30.8 pg (25.7-33.7); MCHC 34.8 g/dl (32.0-36.0); MEAN CELL VOLUME 88.5 fl (80-96); MEAN PLT VOLUME 8.3 fl (7.5-11.1); PLATELET COUNT 221 K/MM3 (134-434); RBC 3.86 M/mm3 (3.60-5.2); RDW 17.4 % (11.6-15.6); WHITE BLOOD COUNT 5.8 K/mm3 (4.0-10.0)
[2018-12-19 06:56] LABS: PROTHROMBIN TIME (PATIENT) 48.3 SEC (9.7-13.0)
[2018-12-19 07:22] LABS: ANION GAP 6 MMOL/L (8-16); BLOOD UREA NITROGEN 13 mg/dL (7-18); CALCIUM 8.5 mg/dL (8.5-10.1); CHLORIDE 103 mmol/L (98-107); CO2 28 mmol/L (21-32); CREATININE 0.7 mg/dL (0.55-1.3); GLUCOSE,RANDOM 93 mg/dL (74-106); POTASSIUM 3.6 mmol/L (3.5-5.1); SODIUM 137 mmol/L (136-145)
--- NOTE | 2018-12-19 07:34 | PN ---
Progress Note, Physician Chief Complaint: had a red clot in stools no pain INR 4.4 off Coumadin since admission - Current Medication List Current Medications: Active Medications Amiodarone HCl (Cordarone -) 200 mg PO DAILY [facility] Last Admin: 12/18/18 09:54 Dose: 200 mg Atorvastatin Calcium (Lipitor -) 20 mg PO HS [facility] Last Admin: 12/18/18 21:44 Dose: 20 mg Brimonidine Tartrate (Alphagan 0.2% -) 1 drop OU BID [facility] Last Admin: 12/18/18 21:45 Dose: 1 drop Clopidogrel Bisulfate (Plavix -) 75 mg PO DAILY [facility] Last Admin: 12/18/18 09:54 Dose: 75 mg Dorzolamide HCl (Trusopt 2%) 1 drop OD BID [facility] Last Admin: 12/18/18 21:44 Dose: 1 drop Furosemide (Lasix -) 20 mg PO DAILY [facility] Last Admin: 12/18/18 09:54 Dose: 20 mg Hydrocortisone (Anusol 2.5% Hc Cream -) 1 applic [place] DAILY [facility] Last Admin: 12/18/18 09:49 Dose: 1 applic Sodium Chloride (Normal Saline -) 1,000 mls @ 50 mls/hr IV ASDIR [facility] Last Admin: 12/18/18 04:03 Dose: 50 mls/hr Latanoprost (Xalatan 0.005% Eye Drops -) 1 drop OU HS [facility] Last Admin: 12/18/18 21:45 Dose: 1 drop Levothyroxine Sodium (Synthroid -) 75 mcg PO DAILY@0700 [facility] Last Admin: 12/19/18 06:23 Dose: 75 mcg Losartan Potassium (Cozaar -) 25 mg PO DAILY [facility] Last Admin: 12/18/18 12:41 Dose: 25 mg Metoprolol Succinate (Toprol Xl -) 200 mg PO DAILY [facility] Last Admin: 12/18/18 09:54 Dose: 200 mg Pantoprazole Sodium (Protonix Iv) 40 mg IVPUSH DAILY [facility] Last Admin: 12/18/18 09:55 Dose: 40 mg Polyethylene Glycol (Miralax (For Daily Use) -) 17 gm PO DAILY [facility] Timolol Maleate (Timoptic 0.5%) 1 drop OU BID [facility] Last Admin: 12/18/18 21:45 Dose: 1 drop - Objective Vital Signs: Vital Signs Temperature 97.6 F 12/19/18 06:40 Pulse Rate 72 12/19/18 06:40 Respiratory Rate 20 12/19/18 06:40 Blood Pressure 145/93 12/19/18 06:40 O2 Sat by Pulse Oximetry (%) 95 12/18/18 21:00 Constitutional: Yes: No Distress, Calm Eyes: Yes: Conjunctiva Clear HENT: Yes: Atraumatic Neck: Yes: Supple Cardiovascular: Yes: Regular Rate and Rhythm Respiratory: Yes: CTA Bilaterally Gastrointestinal: Yes: Soft. No: Tenderness Genitourinary: No: CVA Tenderness - Left, CVA Tenderness - Right Musculoskeletal: No: Joint Stiffness, Joint Swelling Extremities: No: Cold, Cool, Cyanosis Edema: No Integumentary: No: Rash, Venous Stasis Changes Neurological: Yes: WNL, Alert, Oriented ...Motor Strength: WNL Psychiatric: Yes: WNL, Alert, Oriented. No: Agitated, Suicidal Ideation Labs: CBC, BMP 12/19/18 05:40 12/19/18 05:40 INR, PTT INR 3.28 (0.83-1.09) H 12/18/18 05:30 - ....Imaging Other: Report Reviewed Assessment/Plan The patient is a 88 year old female, with a significant past medical history of HTN, CHF, Afib (on Coumadin and Plavix), CAD (s/p stenting), Ao stenosis, Mitral Insufficiency, Pulm HTN, Diverticulitis, SBO (2012), Hemorrhoids, Ischemic Colitis (2012), Neurogenic Bladder (s/p bladder stimulator), admitted with rectal bleeding - h/o diverticulitis, diverticulosis and hemorrhoids s/p hemorrhoids surgery 2 years ago H&H stable; INR increasing despite holding Coumadin on plavix per cardio - had recent stent GI surgery f/u d/w pt and staff
[2018-12-19] MEDS: SODIUM CHLORIDE 1,000 ML IV SCH (08:10)
[2018-12-19 08:32] LABS: INR 4.04 (0.83-1.09)
[2018-12-19] MEDS ORDERED: POLYETHYLENE GLYCOL 3350 119 GM BTL PO SCH (10:00)
[2018-12-19] MEDS: FUROSEMIDE 20 MG TABLET (FP) PO SCH (11:16)
[2018-12-19] MEDS: CLOPIDOGREL BISULFATE 75 MG TABLET (FP) PO SCH (11:16)
[2018-12-19] MEDS: PANTOPRAZOLE SODIUM 40 MG VIAL IVPUSH SCH (11:16)
[2018-12-19] MEDS: AMIODARONE HCL 200 MG TABLET (FP) PO SCH (11:16)
[2018-12-19] MEDS: LOSARTAN POTASSIUM 25 MG TABLET PO SCH (11:16)
[2018-12-19] MEDS: HYDROCORTISONE 2.5% TOPICAL CREAM 30 GM TUBE PR SCH (11:21)
[2018-12-19] MEDS: BRIMONIDINE TARTRATE 0.2% OPHTHALMIC 5 ML BOTTLE OU SCH ×2 (11:22→21:13)
[2018-12-19] MEDS: TIMOLOL 0.5% OPHTHALMIC SOL 5 ML BOTTLE OU SCH ×2 (11:23→21:14)
[2018-12-19] MEDS: DORZOLAMIDE 2% HCL OPHTHALMIC SOLUTION 10 ML BOTTLE OD SCH ×2 (11:26→21:14)
--- NOTE | 2018-12-19 11:42 | PN ---
Progress Note, Physician Chief Complaint: Events noted Not in distress History of Present Illness: Patient was seen and examined. Awake and alert. Chart was reviewed Denies chest pain, SOB or palpitations - Current Medication List Current Medications: Active Medications Amiodarone HCl (Cordarone -) 200 mg PO DAILY [facility] Last Admin: 12/19/18 11:16 Dose: 200 mg Atorvastatin Calcium (Lipitor -) 20 mg PO HS [facility] Last Admin: 12/18/18 21:44 Dose: 20 mg Brimonidine Tartrate (Alphagan 0.2% -) 1 drop OU BID [facility] Last Admin: 12/19/18 11:22 Dose: 1 drop Clopidogrel Bisulfate (Plavix -) 75 mg PO DAILY [facility] Last Admin: 12/19/18 11:16 Dose: 75 mg Dorzolamide HCl (Trusopt 2%) 1 drop OD BID [facility] Last Admin: 12/19/18 11:26 Dose: 1 drop Furosemide (Lasix -) 20 mg PO DAILY [facility] Last Admin: 12/19/18 11:16 Dose: 20 mg Hydrocortisone (Anusol 2.5% Hc Cream -) 1 applic [place] DAILY [facility] Last Admin: 12/19/18 11:21 Dose: 1 applic Sodium Chloride (Normal Saline -) 1,000 mls @ 50 mls/hr IV ASDIR [facility] Last Admin: 12/19/18 08:10 Dose: Not Given Latanoprost (Xalatan 0.005% Eye Drops -) 1 drop OU [facility] Last Admin: 12/18/18 21:45 Dose: 1 drop Levothyroxine Sodium (Synthroid -) 75 mcg PO DAILY@0700 [facility] Last Admin: 12/19/18 06:23 Dose: 75 mcg Losartan Potassium (Cozaar -) 25 mg PO DAILY [facility] Last Admin: 12/19/18 11:16 Dose: 25 mg Metoprolol Succinate (Toprol Xl -) 200 mg PO DAILY [facility] Last Admin: 12/19/18 11:16 Dose: 200 mg Pantoprazole Sodium (Protonix Iv) 40 mg IVPUSH DAILY [facility] Last Admin: 12/19/18 11:16 Dose: 40 mg Polyethylene Glycol (Miralax (For Daily Use) -) 17 gm PO DAILY [facility] Last Admin: 12/19/18 11:17 Dose: 17 grams Timolol Maleate (Timoptic 0.5%) 1 drop OU BID [facility] Last Admin: 12/19/18 11:23 Dose: 1 drop - Objective Vital Signs: Vital Signs Temperature 97.6 F 12/19/18 06:40 Pulse Rate 72 12/19/18 06:40 Respiratory Rate 20 12/19/18 06:40 Blood Pressure 145/93 12/19/18 06:40 O2 Sat by Pulse Oximetry (%) 95 12/18/18 21:00 Eyes: Yes: PERRL HENT: Yes: Atraumatic Neck: Yes: Supple Cardiovascular: Yes: Regular Rate and Rhythm, Murmur (ELIZABETH), S1, S2 Respiratory: Yes: CTA Bilaterally Gastrointestinal: Yes: Normal Bowel Sounds, Soft. No: Tenderness Edema: No Labs: CBC, BMP 12/19/18 05:40 12/19/18 05:40 INR, PTT INR 4.04 (0.83-1.09) H* 12/19/18 05:40 Problem List - Problems (1) Aortic stenosis Code(s): I35.0 - NONRHEUMATIC AORTIC (VALVE) STENOSIS Qualifiers: Cardiac valve disease etiology: nonrheumatic Qualified Code(s): I35.0 - Nonrheumatic aortic (valve) stenosis (2) Diverticulosis Code(s): K57.90 - DVRTCLOS OF INTEST, PART UNSP, W/O PERF OR ABSCESS W/O BLEED Qualifiers: Diverticulosis site: unspecified location (3) Hematochezia Code(s): K92.1 - MELENA (4) Mitral valve insufficiency Code(s): I34.0 - NONRHEUMATIC MITRAL (VALVE) INSUFFICIENCY Qualifiers: Cardiac valve disease etiology: nonrheumatic Qualified Code(s): I34.0 - Nonrheumatic mitral (valve) insufficiency (5) Anemia Code(s): D64.9 - ANEMIA, UNSPECIFIED (6) Atrial fibrillation Code(s): I48.91 - UNSPECIFIED ATRIAL FIBRILLATION Qualifiers: Atrial fibrillation type: paroxysmal Qualified Code(s): I48.0 - Paroxysmal atrial fibrillation (7) Bleeding hemorrhoids Code(s): K64.9 - UNSPECIFIED HEMORRHOIDS (8) CHF (congestive heart failure) Code(s): I50.9 - HEART FAILURE, UNSPECIFIED (9) Coronary artery disease Code(s): I25.10 - ATHSCL HEART DISEASE OF [place] CORONARY ARTERY W/O ANG PCTRS Qualifiers: Coronary Disease-Associated Artery/Lesion type: [place] artery [place] vs. transplanted heart: [place] heart Associated angina: without angina Qualified Code(s): I25.10 - Atherosclerotic heart disease of [place] coronary artery without angina pectoris (10) GERD (gastroesophageal reflux disease) Code(s): K21.9 - GASTRO-ESOPHAGEAL REFLUX DISEASE WITHOUT ESOPHAGITIS Qualifiers: Esophagitis presence: without esophagitis Qualified Code(s): K21.9 - Gastro -esophageal reflux disease without esophagitis (11) History of cardioversion Code(s): Z98.890 - OTHER SPECIFIED POSTPROCEDURAL STATES (12) History of pacemaker Code(s): Z95.0 - PRESENCE OF CARDIAC PACEMAKER (13) Hyperlipidemia Code(s): E78.5 - HYPERLIPIDEMIA, UNSPECIFIED Qualifiers: Hyperlipidemia type: pure hypercholesterolemia Qualified Code(s): E78.00 - Pure hypercholesterolemia, unspecified (14) Hypertension Code(s): I10 - ESSENTIAL (PRIMARY) HYPERTENSION Qualifiers: Hypertension type: essential hypertension Qualified Code(s): I10 - Essential (primary) hypertension (15) Hypothyroidism Code(s): E03.9 - HYPOTHYROIDISM, UNSPECIFIED Qualifiers: Hypothyroidism type: unspecified Qualified Code(s): E03.9 - Hypothyroidism , unspecified (16) MGUS (monoclonal gammopathy of unknown significance) Code(s): D47.2 - MONOCLONAL GAMMOPATHY (17) Neurocardiogenic syncope Code(s): R55 - SYNCOPE AND COLLAPSE (18) Paroxysmal atrial fibrillation Code(s): I48.0 - PAROXYSMAL ATRIAL FIBRILLATION (19) S/P coronary artery stent placement Code(s): Z95.5 - PRESENCE OF CORONARY ANGIOPLASTY IMPLANT AND GRAFT Assessment/Plan 1. Hematochezia, r/o prolapsed external hemorrhoids vs diverticulosis 2. LV diastolic dysfunction with h/o failure 3. Severe aortic valve stenosis 4. Paroxysmal atrial fibrillation post CARLI-guided DCCV on Coumadin with supratherapeutic INR and pacemaker mediated tachycardia 5. CAD s/p rotational atherectomy and AGUEDA LAD angina pectoris 6. Post coronary perforation pericarditis post colchicine course 7. 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 HTN/HCVD 9. Hyperlipidemia 10. Hypothyroidism 11. CKD 12. Retained stones post cholecystectomy with biliary duct dilatation post therapeutic ERCP/sphincterotomy and biliary stent 13. 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 Continue Plavix 75 mg QD despite hematochezia given recent AGUEDA implant 2 months ago and concomitant risk of acute stent thrombosis. Hold Coumadin pending hemostasis, monitor H/H. 2. Continue Furosemide 20 mg QD, Amiodarone 200 mg QD, and Toprol XL 200 mg QD 3. Continue Lipitor 20 mg QHS and Losartan 25 mg QD and follow renal function. 4. GI evaluation in progress 5. TAVR evaluation as outpatient Further plans are to follow Alejandro Elise MD
--- NOTE | 2018-12-19 15:20 | PN ---
Progress Note (short form) - Note Progress Note: surgery pt seen and examined. 88f well known to our service for previous hemorrhoidectomy of 2 out of 3 clusters, had cardiac stent placed in october, on Plavix, coumadin toxic, developed lower gi bleed requiring 2uprbc. Bleeding has stopped, INR still 4. Plavix unable to be held per medical team. On exam inflamed 7:00 hemorrhoid. no bleeding. Plan- likely hemorrhoidal bleed from coumadin toxicity and plavix. Can consider elective resection when able to have plavix and coumadin held and cleared for anesthesia by cardiology. Pt notes that she needs a cardiac valve surgery as well. Would not offer hemorrhoidectomy on plavix and coumadin. should avoid toilet paper. eat more fruit and less meat, chicken, and cheese.
--- NOTE | 2018-12-19 16:08 | PN ---
GI Progress Note Subjective: GI NOte: Had only a small amount of blood on toilet paper today. NO pain. Dr. Brower's note appreciated. I discussed the case with him. hemorrhoidectomy until Plavix can be temporarily stopped. Not sure what t kind of stent was placed. I advised her to discuss this with Dr. Willoughby when she see's him this . - Objective Vital Signs: Vital Signs Temperature 97.7 F 12/19/18 14:50 Pulse Rate 77 12/19/18 14:50 Respiratory Rate 18 12/19/18 14:50 Blood Pressure 136/57 L 12/19/18 14:50 O2 Sat by Pulse Oximetry (%) 95 12/18/18 21:00 CBC,CMP WBC 5.8 K/mm3 (4.0-10.0) 12/19/18 05:40 RBC 3.86 M/mm3 (3.60-5.2) 12/19/18 05:40 Hgb 11.9 GM/dL (10.7-15.3) 12/19/18 05:40 Hct 34.2 % (32.4-45.2) 12/19/18 05:40 MCV 88.5 fl (80-96) 12/19/18 05:40 MCH 30.8 pg (25.7-33.7) 12/19/18 05:40 MCHC 34.8 g/dl (32.0-36.0) 12/19/18 05:40 RDW 17.4 % (11.6-15.6) H 12/19/18 05:40 Plt Count 221 K/MM3 (134-434) 12/19/18 05:40 MPV 8.3 fl (7.5-11.1) 12/19/18 05:40 Absolute Neuts (auto) 5.3 K/mm3 (1.5-8.0) 12/16/18 18:40 Neutrophils % 75.9 % (42.8-82.8) 12/16/18 18:40 Lymphocytes % 10.8 % (8-40) D 12/16/18 18:40 Monocytes % 10.4 % (3.8-10.2) H 12/16/18 18:40 Eosinophils % 1.7 % (0-4.5) 12/16/18 18:40 Basophils % 1.2 % (0-2.0) 12/16/18 18:40 Nucleated RBC % 0 % (0-0) 12/16/18 18:40 Sodium 137 mmol/L (136-145) 12/19/18 05:40 Potassium 3.6 mmol/L (3.5-5.1) 12/19/18 05:40 Chloride 103 mmol/L (98-107) 12/19/18 05:40 Carbon Dioxide 28 mmol/L (21-32) 12/19/18 05:40 Anion Gap 6 MMOL/L (8-16) L 12/19/18 05:40 BUN 13 mg/dL (7-18) 12/19/18 05:40 Creatinine 0.7 mg/dL (0.55-1.3) 12/19/18 05:40 Creat Clearance w eGFR > 60 (>60) 12/19/18 05:40 Random Glucose 93 mg/dL (74-106) 12/19/18 05:40 Lactic Acid 1.0 mmol/L (0.4-2.0) 12/16/18 18:50 Calcium 8.5 mg/dL (8.5-10.1) 12/19/18 05:40 Total Bilirubin 1.6 mg/dL (0.2-1) H 12/17/18 05:50 AST 14 U/L (15-37) L 12/17/18 05:50 ALT 13 U/L (13-61) 12/17/18 05:50 Alkaline Phosphatase 90 U/L (45-117) 12/17/18 05:50 Creatine Kinase 35 U/L (26-192) 12/16/18 18:50 Troponin I 0.03 ng/ml (0.00-0.05) 12/16/18 18:50 Total Protein 7.2 g/dl (6.4-8.2) 12/17/18 05:50 Albumin 2.6 g/dl (3.4-5.0) L 12/17/18 05:50 Constitutional: No Distress ...Auscultate: Yes: Normoactive Bowel Sounds ...Palpate: Yes: Soft, Other (nontender) Labs: CBC, BMP 12/19/18 05:40 12/19/18 05:40 INR, PTT INR 4.04 (0.83-1.09) H* 12/19/18 05:40 Assessment/Plan Resolved hemorrhoidal bleeding No GI objections to discharge Sitz baths with epsom salt advised Problem List - Problems (1) Hematochezia Code(s): K92.1 - MELENA (2) Aortic stenosis Code(s): I35.0 - NONRHEUMATIC AORTIC (VALVE) STENOSIS Qualifiers: Cardiac valve disease etiology: nonrheumatic Qualified Code(s): I35.0 - Nonrheumatic aortic (valve) stenosis (3) Anemia Code(s): D64.9 - ANEMIA, UNSPECIFIED (4) Atrial fibrillation Code(s): I48.91 - UNSPECIFIED ATRIAL FIBRILLATION Qualifiers: Atrial fibrillation type: paroxysmal Qualified Code(s): I48.0 - Paroxysmal atrial fibrillation (5) Bleeding hemorrhoids Code(s): K64.9 - UNSPECIFIED HEMORRHOIDS (6) Constipation Code(s): K59.00 - CONSTIPATION, UNSPECIFIED Qualifiers: Constipation type: unspecified constipation type Qualified Code(s): K59.00 - Constipation, unspecified (7) History of hemorrhoidectomy Code(s): Z98.890 - OTHER SPECIFIED POSTPROCEDURAL STATES (8) History of pacemaker Code(s): Z95.0 - PRESENCE OF CARDIAC PACEMAKER
[2018-12-19] MEDS: ATORVASTATIN CA 20 MG TABLET (FP) PO SCH (21:12)
[2018-12-19] MEDS: LATANOPROST 0.005% OPHTH SOLN 2.5ML BOTTLE OU SCH (21:13)
[2018-12-20] MEDS: LEVOTHYROXINE NA 75 MCG TABLET (FP) PO SCH (06:15)
[2018-12-20 06:16] VITALS: BP 145/94; PULSE 72; TEMP 97.6
[2018-12-20 07:46] LABS: INR 2.79 (0.83-1.09); PROTHROMBIN TIME (PATIENT) 33.3 SEC (9.7-13.0)
[2018-12-20 07:47] LABS: EOS % 2.4 % (0-4.5); HEMATOCRIT 33.1 % (32.4-45.2); HEMOGLOBIN 11.4 GM/dL (10.7-15.3); LYMPH % 12.2 % (8-40); MCHC 34.6 g/dl (32.0-36.0); MEAN CELL VOLUME 89.5 fl (80-96); MEAN PLT VOLUME 8.3 fl (7.5-11.1); MONO % 12.2 % (3.8-10.2); NEUT % 72.2 % (42.8-82.8); PLATELET COUNT 203 K/MM3 (134-434); RBC 3.69 M/mm3 (3.60-5.2); RDW 16.9 % (11.6-15.6); WHITE BLOOD COUNT 6.6 K/mm3 (4.0-10.0)
[2018-12-20 08:43] LABS: ALBUMIN 2.4 g/dl (3.4-5.0); ALK PHOS 91 U/L (45-117); ANION GAP 8 MMOL/L (8-16); BILIRUBIN,TOTAL 0.8 mg/dL (0.2-1); BLOOD UREA NITROGEN 14 mg/dL (7-18); CALCIUM 8.5 mg/dL (8.5-10.1); CHLORIDE 102 mmol/L (98-107); CO2 27 mmol/L (21-32); CREATININE 0.7 mg/dL (0.55-1.3); GLUCOSE,RANDOM 92 mg/dL (74-106); POTASSIUM 3.7 mmol/L (3.5-5.1); SGOT/AST 12 U/L (15-37); SGPT/ALT 10 U/L (13-61); SODIUM 137 mmol/L (136-145); TOT PROT 6.8 g/dl (6.4-8.2)
[2018-12-20] MEDS: FUROSEMIDE 20 MG TABLET (FP) PO SCH (09:34)
[2018-12-20] MEDS: AMIODARONE HCL 200 MG TABLET (FP) PO SCH (09:34)
[2018-12-20] MEDS: CLOPIDOGREL BISULFATE 75 MG TABLET (FP) PO SCH (09:34)
[2018-12-20] MEDS: LOSARTAN POTASSIUM 25 MG TABLET PO SCH (09:34)
[2018-12-20] MEDS: PANTOPRAZOLE SODIUM 40 MG VIAL IVPUSH SCH (09:35)
[2018-12-20] MEDS: DORZOLAMIDE 2% HCL OPHTHALMIC SOLUTION 10 ML BOTTLE OD SCH (09:39)
[2018-12-20] MEDS: BRIMONIDINE TARTRATE 0.2% OPHTHALMIC 5 ML BOTTLE OU SCH (09:39)
[2018-12-20] MEDS: TIMOLOL 0.5% OPHTHALMIC SOL 5 ML BOTTLE OU SCH (09:39)
[2018-12-20] MEDS: HYDROCORTISONE 2.5% TOPICAL CREAM 30 GM TUBE PR SCH (09:40)
--- NOTE | 2018-12-20 09:45 | DS ---
Physical Examination Vital Signs: Vital Signs Temperature 97.6 F 12/20/18 06:00 Pulse Rate 72 12/20/18 06:00 Respiratory Rate 20 12/20/18 06:00 Blood Pressure 145/94 12/20/18 06:00 O2 Sat by Pulse Oximetry (%) 95 12/19/18 21:00 Findings/Remarks: stable no bleed H&H stable (received 2 U PRBC in ER b/o amount of rectal bleed but she did not drop H&H) GI and surgery and cardio consults appreciated and d/w pt; f/u outpt closely; keep INR around 2; will see cardio dr Patel in am; constipation PFX; to see surgery for hemorrhoid sx when OK with cardiology when plavix can be help. walked in hallway with PT; will go home today daughter will pick her up; has miralax and hemorzol cream home. INR 2.7 today; do not take coumadin today d./w pt to talk to cardio in am regarding further coumadin dose; is on Plavix currently Constitutional: Yes: No Distress, Calm Eyes: Yes: Conjunctiva Clear HENT: Yes: Atraumatic Neck: Yes: Supple Cardiovascular: Yes: Regular Rate and Rhythm Respiratory: Yes: CTA Bilaterally Gastrointestinal: Yes: Soft Renal/: No: CVA Tenderness - Left, CVA Tenderness - Right Musculoskeletal: No: Joint Stiffness, Joint Swelling Extremities: No: Cold, Cool Edema: No Integumentary: No: Rash, Venous Stasis Changes Neurological: Yes: WNL, Alert, Oriented ...Motor Strength: WNL Psychiatric: Yes: WNL, Alert, Oriented. No: Agitated, Suicidal Ideation Labs: CBC, BMP 12/20/18 06:20 12/20/18 06:20 Discharge Summary Reason For Visit: RECTAL HEMORRHAGE Current Active Problems Aortic stenosis (Acute) Diverticulosis (Acute) Hematochezia (Acute) Mitral valve insufficiency (Acute) Rectal bleeding (Acute) Procedures: Principal: admitted with lower GI bleed; high INR oncoumadin, on plavix s/p recent stent 2 months ago Other Procedures: seen by GI, surgery; cardiology; coumadin held; dose adjusted ; 2 U PRBC tx Hospital Course: constipation pfx; DC home with VNS and f/u as advised Condition: Improved - Instructions Diet, Activity, Other Instructions: Please return to the emergency department with any new or worsening symptoms or concerns. Please follow up with your primary care physician within 72 hours. f/u PCP cardiology GI and surgery in 2-4 weeks avoid constipation; high fiber diet; miralax, po water close INR control; cardiology for preop eval for outpt hemorrhoid surgery home VNS, PT; falls PFX Referrals: Jacque Richardosn [Primary Care Provider] - Minh Caputo MD [Staff Physician] - Chris Epperson MD [Staff Physician] - Lance Mccord MD [Staff Physician] - Disposition: VNS/HOME HEALTH CARE - Home Medications Comprehensive Discharge Medication List: Ambulatory Orders Metoprolol Succinate [Toprol Xl] 200 mg PO DAILY 11/08/18 Amiodarone HCl [Cordarone -] 200 mg PO DAILY #0 tab 11/17/18 Brimonidine Tartrate/Timolol [Combigan 0.2%-0.5% Eye Drops] 10 ml OP BID #0 bottle 11/17/18 Clopidogrel Bisulfate [Plavix] 75 mg PO DAILY #0 tab 11/17/18 Dorzolamide HCl [Trusopt] 10 ml OD BID #0 drop 11/17/18 Furosemide [Lasix] 20 mg PO DAILY #0 tab 11/17/18 Latanoprost 0.005% Eye Drops [Xalatan 0.005% Eye Drops -] 1 drop OU HS #0 drop 11/17/18 Levothyroxine [Synthroid -] 75 mcg PO DAILY #0 tab 11/17/18 Pantoprazole Sodium [Protonix] 40 mg PO DAILY #0 tab 11/17/18 Simvastatin [Zocor -] 20 mg PO HS #0 tab 11/17/18 Warfarin Na [Coumadin -] 2 mg PO DAILY@1800 tablet 11/17/18 Hydrocortisone 2.5% Topical Cr [Anusol-Hc -] 1 applic MS DAILY #1 tube 12/20/18 Polyethylene Glycol 3350 [Miralax 119 gm Btl -] 17 gm PO DAILY #90 bottle
--- NOTE | 2018-12-20 09:53 | PN ---
Progress Note, Physician History of Present Illness: Patient d/minerva prior to exam. - Current Medication List Current Medications: Active Medications Amiodarone HCl (Cordarone -) 200 mg PO DAILY [facility] Last Admin: 12/20/18 09:34 Dose: 200 mg Atorvastatin Calcium (Lipitor -) 20 mg PO HS [facility] Last Admin: 12/19/18 21:12 Dose: 20 mg Brimonidine Tartrate (Alphagan 0.2% -) 1 drop OU BID [facility] Last Admin: 12/20/18 09:39 Dose: 1 drop Clopidogrel Bisulfate (Plavix -) 75 mg PO DAILY [facility] Last Admin: 12/20/18 09:34 Dose: 75 mg Dorzolamide HCl (Trusopt 2%) 1 drop OD BID [facility] Last Admin: 12/20/18 09:39 Dose: 1 drop Furosemide (Lasix -) 20 mg PO DAILY [facility] Last Admin: 12/20/18 09:34 Dose: 20 mg Hydrocortisone (Anusol 2.5% Hc Cream -) 1 applic OR DAILY [facility] Last Admin: 12/20/18 09:40 Dose: 1 applic Sodium Chloride (Normal Saline -) 1,000 mls @ 50 mls/hr IV ASDIR [facility] Last Admin: 12/19/18 08:10 Dose: Not Given Latanoprost (Xalatan 0.005% Eye Drops -) 1 drop OU HS [facility] Last Admin: 12/19/18 21:13 Dose: 1 drop Levothyroxine Sodium (Synthroid -) 75 mcg PO DAILY@0700 [facility] Last Admin: 12/20/18 06:15 Dose: 75 mcg Losartan Potassium (Cozaar -) 25 mg PO DAILY [facility] Last Admin: 12/20/18 09:34 Dose: 25 mg Metoprolol Succinate (Toprol Xl -) 200 mg PO DAILY [facility] Last Admin: 12/20/18 09:34 Dose: 200 mg Pantoprazole Sodium (Protonix Iv) 40 mg IVPUSH DAILY [facility] Last Admin: 12/20/18 09:35 Dose: 40 mg Polyethylene Glycol (Miralax (For Daily Use) -) 17 gm PO DAILY [facility] Last Admin: 12/19/18 11:17 Dose: 17 grams Timolol Maleate (Timoptic 0.5%) 1 drop OU BID [facility] Last Admin: 12/20/18 09:39 Dose: 1 drop - Objective Vital Signs: Vital Signs Temperature 97.6 F 0206/19 06:00 Pulse Rate 72 12/20/18 06:00 Respiratory Rate 20 12/20/18 06:00 Blood Pressure 145/94 12/20/18 06:00 O2 Sat by Pulse Oximetry (%) 95 12/19/18 21:00 Constitutional: Yes: No Distress, Calm Neck: Yes: Supple Cardiovascular: Yes: Regular Rate and Rhythm, Murmur (2/6 SM) Respiratory: Yes: Regular, CTA Bilaterally Gastrointestinal: Yes: Normal Bowel Sounds, Soft Edema: No Labs: CBC, BMP 12/20/18 06:20 12/20/18 06:20 INR, PTT INR 2.79 (0.83-1.09) H 12/20/18 06:20 Problem List - Problems (1) Aortic stenosis Code(s): I35.0 - NONRHEUMATIC AORTIC (VALVE) STENOSIS Qualifiers: Cardiac valve disease etiology: nonrheumatic Qualified Code(s): I35.0 - Nonrheumatic aortic (valve) stenosis (2) Diverticulosis Code(s): K57.90 - DVRTCLOS OF INTEST, PART UNSP, W/O PERF OR ABSCESS W/O BLEED Qualifiers: Diverticulosis site: unspecified location (3) Rectal bleeding Code(s): K62.5 - HEMORRHAGE OF ANUS AND RECTUM (4) Coronary artery disease Code(s): I25.10 - ATHSCL HEART DISEASE OF [place] CORONARY ARTERY W/O ANG PCTRS Qualifiers: Coronary Disease-Associated Artery/Lesion type: [place] artery [place] vs. transplanted heart: [place] heart Associated angina: without angina Qualified Code(s): I25.10 - Atherosclerotic heart disease of [place] coronary artery without angina pectoris (5) Diastolic CHF Code(s): I50.30 - UNSPECIFIED DIASTOLIC (CONGESTIVE) HEART FAILURE Qualifiers: Heart failure chronicity: chronic Qualified Code(s): I50.32 - Chronic diastolic (congestive) heart failure (6) Elevated INR Code(s): R79.1 - ABNORMAL COAGULATION PROFILE (7) History of cardioversion Code(s): Z98.890 - OTHER SPECIFIED POSTPROCEDURAL STATES (8) Hyperlipidemia Code(s): E78.5 - HYPERLIPIDEMIA, UNSPECIFIED Qualifiers: Hyperlipidemia type: pure hypercholesterolemia Qualified Code(s): E78.00 - Pure hypercholesterolemia, unspecified (9) Hypertension Code(s): I10 - ESSENTIAL (PRIMARY) HYPERTENSION Qualifiers: Hypertension type: essential hypertension Qualified Code(s): I10 - Essential (primary) hypertension (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 Code(s): I11.9 - HYPERTENSIVE HEART DISEASE WITHOUT HEART FAILURE (11) Hypothyroidism Code(s): E03.9 - HYPOTHYROIDISM, UNSPECIFIED Qualifiers: Hypothyroidism type: unspecified Qualified Code(s): E03.9 - Hypothyroidism , unspecified (12) Neurocardiogenic syncope Code(s): R55 - SYNCOPE AND COLLAPSE (13) Pacemaker Code(s): Z95.0 - PRESENCE OF CARDIAC PACEMAKER (14) Paroxysmal atrial fibrillation Code(s): I48.0 - PAROXYSMAL ATRIAL FIBRILLATION (15) S/P coronary artery stent placement Code(s): Z95.5 - PRESENCE OF CORONARY ANGIOPLASTY IMPLANT AND GRAFT (16) Severe aortic stenosis Code(s): I35.0 - NONRHEUMATIC AORTIC (VALVE) STENOSIS (17) Hematochezia Code(s): K92.1 - MELENA (18) Hemorrhoids Code(s): K64.9 - UNSPECIFIED HEMORRHOIDS Qualifiers: Hemorrhoid type: unspecified Qualified Code(s): K64.9 - Unspecified hemorrhoids Assessment/Plan 11/17/2017 CARLI: Normal LV size with low normal LV fxn, mod GINA, no CLARK thrombus or shunts, severe , mod MR, TR 1. Hematochezia, r/o prolapsed external hemorrhoids vs diverticulosis 2. LV diastolic dysfunction with h/o failure 3. Severe aortic valve stenosis 4. Paroxysmal atrial fibrillation post CARLI-guided DCCV on Coumadin with supratherapeutic INR and pacemaker mediated tachycardia 5. CAD s/p rotational atherectomy and AGUEDA LAD angina pectoris 6. Post coronary perforation pericarditis post colchicine course 7. 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 HTN/HCVD 9. Hyperlipidemia 10. Hypothyroidism 11. CKD 12. Retained stones post cholecystectomy with biliary duct dilatation post therapeutic ERCP/sphincterotomy and biliary stent 13. 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 Continue Plavix 75 mg QD despite hematochezia given recent AGUEDA implant 2 months ago and concomitant risk of acute stent thrombosis. Hold Coumadin pending hemostasis, monitor H/H. 2. Continue Furosemide 20 mg QD, Amiodarone 200 mg QD, and Toprol XL 200 mg QD 3. Continue Lipitor 20 mg QHS and Losartan 25 mg QD and follow renal function. 4. GI evaluation in progress 5. TAVR evaluation as outpatient Amiodarone HCl (Cordarone -) 200 mg PO DAILY [facility] Last Admin: 12/20/18 09:34 Dose: 200 mg Atorvastatin Calcium (Lipitor -) 20 mg PO HS [facility] Last Admin: 12/19/18 21:12 Dose: 20 mg Brimonidine Tartrate (Alphagan 0.2% -) 1 drop OU BID [facility] Last Admin: 12/20/18 09:39 Dose: 1 drop Clopidogrel Bisulfate (Plavix -) 75 mg PO DAILY [facility] Last Admin: 12/20/18 09:34 Dose: 75 mg Dorzolamide HCl (Trusopt 2%) 1 drop OD BID [facility] Last Admin: 12/20/18 09:39 Dose: 1 drop Furosemide (Lasix -) 20 mg PO DAILY [facility] Last Admin: 12/20/18 09:34 Dose: 20 mg Hydrocortisone (Anusol 2.5% Hc Cream -) 1 applic OR DAILY [facility] Last Admin: 12/20/18 09:40 Dose: 1 applic Sodium Chloride (Normal Saline -) 1,000 mls @ 50 mls/hr IV ASDIR [facility] Last Admin: 12/19/18 08:10 Dose: Not Given Latanoprost (Xalatan 0.005% Eye Drops -) 1 drop OU HS [facility] Last Admin: 12/19/18 21:13 Dose: 1 drop Levothyroxine Sodium (Synthroid -) 75 mcg PO DAILY@0700 [facility] Last Admin: 12/20/18 06:15 Dose: 75 mcg Losartan Potassium (Cozaar -) 25 mg PO DAILY [facility] Last Admin: 12/20/18 09:34 Dose: 25 mg Metoprolol Succinate (Toprol Xl -) 200 mg PO DAILY [facility] Last Admin: 12/20/18 09:34 Dose: 200 mg Pantoprazole Sodium (Protonix Iv) 40 mg IVPUSH DAILY [facility] Last Admin: 12/20/18 09:35 Dose: 40 mg Polyethylene Glycol (Miralax (For Daily Use) -) 17 gm PO DAILY [facility] Last Admin: 12/19/18 11:17 Dose: 17 grams Timolol Maleate (Timoptic 0.5%) 1 drop OU BID [facility] Last Admin: 12/20/18 09:39 Dose: 1 drop
== END 2018-12-20 16:19 | disposition home health service (06) | DRG 394 ==
LOC: JER 17:59 → JERBED 19:24 → J8W 21:20
PROVIDERS: ADMIT Internal Medicine; ATTEND Internal Medicine
PROC: 30233N1 Transfusion of Nonautologous Red Blood Cells into Peripheral Vein, Percutaneous Approach (ICD-10-PCS; principal; 2018-12-16)
DX: K64.8 Other hemorrhoids (principal); I13.0 Hypertensive heart and chronic kidney disease with heart failure and stage 1 through stage 4 chronic kidney disease, or unspecified chronic kidney disease; I50.32 Chronic diastolic (congestive) heart failure; K57.32 Diverticulitis of large intestine without perforation or abscess without bleeding; D68.8 Other specified coagulation defects; I48.0 Paroxysmal atrial fibrillation; I34.0 Nonrheumatic mitral (valve) insufficiency; I35.0 Nonrheumatic aortic (valve) stenosis; I25.10 Atherosclerotic heart disease of native coronary artery without angina pectoris; Z79.01 Long term (current) use of anticoagulants; Z95.5 Presence of coronary angioplasty implant and graft; I27.20 Pulmonary hypertension, unspecified; Z95.0 Presence of cardiac pacemaker; E03.9 Hypothyroidism, unspecified; E78.00 Pure hypercholesterolemia, unspecified; N31.9 Neuromuscular dysfunction of bladder, unspecified; Z90.710 Acquired absence of both cervix and uterus; N18.9 Chronic kidney disease, unspecified; K59.00 Constipation, unspecified; D47.2 Monoclonal gammopathy
CPT/HCPCS: 36415; 36430; 80048; 80053; 81003; 81015; 82272; 82550; 83605; 84484; 85025; 85027; 85610; 85730; 86850; 86900; 86901; 86922; 93005; 93010; 97116-GP; 97161-GP; 99285-25; J7030; P9038; P9058

== ENCOUNTER 2019-03-17 08:46 | Emergency (ER) | payer OTHER, MEDICARE ==
[2019-03-17 09:08] VITALS: TEMP 98; BMI 21.6
--- NOTE | 2019-03-17 09:13 | PDOC ---
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 She states she took a new medication - elliquis - earlier today. She now has a sore in her mouth. She started elliquis 6 weeks ago. She reports that she started developing cold sores in her mouth this past which have been hurting her and she came to the ED to have her cold sores looked at. She called her paper ruler - Dr. Hummel who told her to come to the ER to be evaluated. PCP: Gabe Richardson Supervisor Type Photography: Dr. Hummel PSH: Appendectomy, Cataract Removal, Cholecystectomy, Colonoscopy, Hysterectomy , Permanent Pacemaker, Tonsillectomy, Upper Endoscopy, Hemorrhoid surgery Social Hx; Denies smoking, drinking, or other substance usage. Lives alone, independent of ADLs - DNR Allergies: Erythromycin Past History - Past Medical History Allergies/Adverse Reactions: Allergies Allergy/AdvReac Type Severity Reaction Status Date / Time erythromycin base Allergy Unknown abdominal Verified 03/17/19 09:02 [Erythromycin Base] pain Home Medications: Ambulatory Orders Metoprolol Succinate [Toprol Xl] 200 mg PO DAILY 11/08/18 Amiodarone HCl [Cordarone -] 200 mg PO DAILY #0 tab 11/17/18 Brimonidine Tartrate/Timolol [Combigan 0.2%-0.5% Eye Drops] 10 ml OP BID #0 bottle 11/17/18 Clopidogrel Bisulfate [Plavix] 75 mg PO DAILY #0 tab 11/17/18 Dorzolamide HCl [Trusopt] 10 ml OD BID #0 drop 11/17/18 Furosemide [Lasix] 20 mg PO DAILY #0 tab 11/17/18 Latanoprost 0.005% Eye Drops [Xalatan 0.005% Eye Drops -] 1 drop OU HS #0 drop 11/17/18 Levothyroxine [Synthroid -] 75 mcg PO DAILY #0 tab 11/17/18 Simvastatin [Zocor -] 20 mg PO HS #0 tab 11/17/18 Amlodipine Besylate [Norvasc -] 5 mg PO DAILY 03/17/19 Apixaban [Eliquis -] 2.5 mg PO BID 03/17/19 Losartan Potassium [Cozaar] 100 mg PO DAILY 03/17/19 Methenamine MC BID 03/17/19 Anemia: No Asthma: No Cancer: No Cardiac Disorders: Yes (PACEMAKER X 1, Stent Placement 10/31) CVA: No COPD: No CHF: No Dementia: No Diabetes: No GI Disorders: Yes (GALLSTONES EVEN THOUGH SHE HAD GALLBLADDER REMOVED) Disorders: Yes (BLADDER INFECTION) HTN: Yes Hypercholesterolemia: Yes Liver Disease: No Seizures: No Thyroid Disease: Yes (Hypothyroid) - Surgical History Abdominal Surgery: Yes (SLIT IN GALLBLADDDER DUCT, HEMMORHOID REMOVED) Appendectomy: Yes Cardiac Surgery: Yes (PACEMAKER X2 one for bladder) Cholecystectomy: Yes Lung Surgery: No Neurologic Surgery: No Orthopedic Surgery: No - Immunization History Immunization Up to Date: Yes - Suicide/Smoking/Psychosocial Hx Smoking Status: No Smoking History: Never smoked Have you smoked in the past 12 months: No Number of Cigarettes Smoked Daily: 0 Hx Alcohol Use: No Drug/Substance Use Hx: No Substance Use Type: None Hx Substance Use Treatment: No Review of Systems - Review of Systems Able to Perform ROS?: Yes Constitutional: No: Chills, Diaphoresis, Fever HEENTM: Yes: Mouth Pain. No: Difficulty Swallowing, Mouth Swelling Respiratory: No: Cough, Shortness of Breath Cardiac (ROS): No: Chest Pain ABD/GI: No: Abdominal Distended, Nausea, Vomiting : No: Burning, Dysuria, Discharge Musculoskeletal: No: Back Pain, Joint Pain Integumentary: No: Change in Color, Dryness, Erythema Neurological: No: Headache, Numbness Psychiatric: Yes: Anxiety. No: Depression Endocrine: No: Excessive Sweating, Flushing Hematologic/Lymphatic: No: Anemia, Blood Clots *Physical Exam - Vital Signs Last Vital Signs Temp Pulse Resp BP Pulse Ox 98 F 71 18 132/77 97 03/17/19 09:02 03/17/19 09:02 03/17/19 09:02 03/17/19 09:02 03/17/19 09:02 - Physical Exam General Appearance: Yes: Nourished, Appropriately Dressed. No: Apparent Distress HEENT: positive: ILAN, Normal Voice, Lesions (cold sores on upper lip ) Neck: positive: Supple Respiratory/Chest: positive: Lungs Clear, Normal Breath Sounds Cardiovascular: positive: Regular Rhythm, Regular Rate Vascular Pulses: Dorsalis-Pedis (R): 2+, Doralis-Pedis (L): 2+ Gastrointestinal/Abdominal: positive: Flat, Soft Rectal Exam: negative: deferred Lymphatic: negative: Adenopathy Musculoskeletal: positive: Normal Inspection. negative: CVA Tenderness Extremity: positive: Normal Capillary Refill, Normal Inspection, Normal Range of Motion Integumentary: positive: Normal Color, Dry, Warm Neurologic: positive: highway landscape architect II-XII NML intact, Fully Oriented, Alert, Normal Mood/ Affect, Normal Response ED Treatment Course - LABORATORY CBC & Chemistry Diagram: 03/17/19 09:42 03/17/19 09:42 Medical Decision Making - Medical Decision Making 88 yo F w a pmh of CAD on Plavix, A Fib formerly on Coumadin recently switched to elliquis, aortic stenosis, HTN, HLD, mitral insufficiency, pulmonary HTN, PPM , Diverticulitis, Ischemic colitis, Hemorrhoids, s/p Sx, macular degeneration, choledocolithiasis s/p sphincterotomy 10/29, neurogenic bladder, 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 She states she took a new medication - elliquis - earlier today. She now has a sore in her mouth. She started elliquis 6 weeks ago. She reports that she started developing cold sores in her mouth this past which have been hurting her and she came to the ED to have her cold sores looked at. She called her paper ruler - Dr. Hummel who told her to come to the ER to be evaluated. VS: WNL DDx IBNLT: allegic reaction, medication side effect, immunosupression Plan: Labs, cards consult, DC Labs unremarkable and WNL Consulting Cards - Dr. Rodrigues - Call placed at 10:[address] ibrahim who is covering for Dr. Rodrigues, said he only told patient to come to ER bc he has a slight concern for angioedema. Dr. Ibrahim agrees that the cold sores on the patient are not a concern and are not a reason to stop eliquis. He recommends continuing current medication course and having patient follow up with Dr. Rodrigues next week. Will DC with supportive care for lip pain control *DC/Admit/Observation/Transfer Diagnosis at time of Disposition: Pain in mouth - Discharge Dispostion Disposition: HOME Condition at time of disposition: Stable Decision to Admit order: No - Referrals Referrals: Murray Willoughby MD [Staff Physician] - - Patient Instructions Printed Discharge Instructions: DI for Adverse Drug Reaction -- Allergic Additional Instructions: You came into the ER with lip pain. We believe this is a cold sore and probably not related to your eliquis medication. We spoke with your covering paper ruler who also does not think this reaction is from your blood thinning medication. Please continue taking your medications as prescribed. Suck on throat lozenges as needed for pain control. Please schedule a follow up appointment with your paper ruler next week to make sure your lip pain is getting better and you are being taken care of. Come back to the ER if you feel nauseous, start vomiting, get lightheaded, have chest pain or shortness of breath, get a fever, feel off or have any other new or worsening concerns. Thank you for coming to the [facility] ER. We hope you feel better soon! Print Language: IVORIAN - Post Discharge Activity
[2019-03-17 10:08] LABS: BASO % 0.8 % (0-2.0); EOS % 2.5 % (0-4.5); HEMATOCRIT 38.7 % (32.4-45.2); HEMOGLOBIN 12.7 GM/dL (10.7-15.3); LYMPH % 13.1 % (8-40); MCH 31.4 pg (25.7-33.7); MCHC 32.9 g/dl (32.0-36.0); MEAN CELL VOLUME 95.6 fl (80-96); MEAN PLT VOLUME 8.6 fl (7.5-11.1); MONO % 11.3 % (3.8-10.2); NEUT % 72.3 % (42.8-82.8); PLATELET COUNT 172 K/MM3 (134-434); RBC 4.05 M/mm3 (3.60-5.2); RDW 17.2 % (11.6-15.6); WHITE BLOOD COUNT 4.1 K/mm3 (4.0-10.0)
[2019-03-17 10:21] LABS: INR 1.1 (0.83-1.09)
[2019-03-17 10:24] LABS: ACTIVATED PTT 46.7 SECONDS (25.2-36.5)
[2019-03-17 10:34] LABS: ALBUMIN 3.1 g/dl (3.4-5.0); ALK PHOS 99 U/L (45-117); ANION GAP 8 MMOL/L (8-16); BILIRUBIN,TOTAL 0.5 mg/dL (0.2-1); BLOOD UREA NITROGEN 16 mg/dL (7-18); CHLORIDE 105 mmol/L (98-107); CO2 27 mmol/L (21-32); CREATININE 0.9 mg/dL (0.55-1.3); GLUCOSE,RANDOM 111 mg/dL (74-106); POTASSIUM 3.8 mmol/L (3.5-5.1); SGOT/AST 16 U/L (15-37); SGPT/ALT 15 U/L (13-61); SODIUM 140 mmol/L (136-145); TOT PROT 7.9 g/dl (6.4-8.2)
--- NOTE | 2019-03-17 10:34 | PDOC ---
Attending Attestation - Resident Resident Name: Michael Montague - ED Attending Attestation I have performed the following: I have examined & evaluated the patient, The case was reviewed & discussed with the resident, I agree w/resident's findings & plan, Exceptions are as noted - HPI HPI: 03/17/19 10:32 88-year-old female history of coronary disease on Plavix, atrial fibrillation on eliquis, aortic stenosis, hypertension, hyperlipidemia, mitral insufficiency , pulmonary hypertension, pacemaker, diverticulitis, ischemic colitis, hemorrhoids, macular degeneration, choledocholithiasis Ammann neurogenic bladder , multiple myeloma, herpes zoster, chronic back pain, I see arthritis, spinal stenosis, hypothyroidism, cold sores presents with cold sore. The patient has been on her anticoagulation for the last several months. The patient has been taking it daily. However, the patient noted recently in the last day of recurrence of cold sores. Patient had read on the label that eliquis may potentially cause immunosuppression so called her doctor and sent the patient to the ER. The patient is no fevers or chills. No tongue swelling or difficulty breathing. No sore throat, chest pain, shortness of breath abdominal pain nausea vomiting or diarrhea. The patient noted some cold sores at the upper lip. - Physicial Exam PE: 03/17/19 10:32 GENERAL: Awake, alert, and fully oriented, in no acute distress HEAD: No signs of trauma EYES: PERRLA, EOMI, sclera anicteric, conjunctiva clear ENT: Auricles normal inspection, hearing grossly normal, nares patent, Moist mucosa Orophaynx: Clear with no erythema or drainage. Small cold sores appreciated in upper lip. NECK: Normal ROM, supple, EXTREMITIES: Normal range of motion, no edema. No clubbing or cyanosis. No cords, erythema, or tenderness NEUROLOGICAL: Cranial nerves II through XII grossly intact. Normal speech, normal gait SKIN: Warm, Dry, normal turgor, no rashes or lesions noted. - Medical Decision Making 03/17/19 10:34 Vital Signs Temp Pulse Resp BP Pulse Ox 98 F 71 18 132/77 97 03/17/19 09:02 03/17/19 09:02 03/17/19 09:02 03/17/19 09:02 03/17/19 09:02 I suspect that the patient has cold sores which is likely a separate from her medication. However, the patient is quite anxious about taking eliquis. If the patient blood work demonstrates no immunosuppression, we will consult patient's residential support specialist in regards to anticoagulation choice. The patient can then be sent home with supportive care and and anticoagulation choice of her residential support specialist. 03/17/19 10:58 CBC, BMP 03/17/19 09:42 03/17/19 09:42 CMP Sodium 140 mmol/L (136-145) 03/17/19 09:42 Potassium 3.8 mmol/L (3.5-5.1) 03/17/19 09:42 Chloride 105 mmol/L (98-107) 03/17/19 09:42 Carbon Dioxide 27 mmol/L (21-32) 03/17/19 09:42 Anion Gap 8 MMOL/L (8-16) 03/17/19 09:42 BUN 16 mg/dL (7-18) 03/17/19 09:42 Creatinine 0.9 mg/dL (0.55-1.3) 03/17/19 09:42 Creat Clearance w eGFR 58.95 (>60) 03/17/19 09:42 Random Glucose 111 mg/dL (74-106) H 03/17/19 09:42 Calcium 9.0 mg/dL (8.5-10.1) 03/17/19 09:42 Total Bilirubin 0.5 mg/dL (0.2-1) 03/17/19 09:42 AST 16 U/L (15-37) 03/17/19 09:42 ALT 15 U/L (13-61) 03/17/19 09:42 Alkaline Phosphatase 99 U/L (45-117) 03/17/19 09:42 Total Protein 7.9 g/dl (6.4-8.2) 03/17/19 09:42 Albumin 3.1 g/dl (3.4-5.0) L 03/17/19 09:[address] Sánchez stated that patient can continue her eliquis.
[2019-03-17 11:00] VITALS: BP 119/84; PULSE 81
== END 2019-03-17 10:58 | disposition home or self-care (01) ==
LOC: JER 08:46
DX: B00.1 Herpesviral vesicular dermatitis (principal); K13.79 Other lesions of oral mucosa; I25.10 Atherosclerotic heart disease of native coronary artery without angina pectoris; I10 Essential (primary) hypertension; I48.91 Unspecified atrial fibrillation; Z79.01 Long term (current) use of anticoagulants; I34.0 Nonrheumatic mitral (valve) insufficiency; I35.0 Nonrheumatic aortic (valve) stenosis; I27.20 Pulmonary hypertension, unspecified; Z95.0 Presence of cardiac pacemaker; Z87.19 Personal history of other diseases of the digestive system; Z85.79 Personal history of other malignant neoplasms of lymphoid, hematopoietic and related tissues; E03.9 Hypothyroidism, unspecified
CPT/HCPCS: 36415; 80053; 85025; 85610; 85730; 99282-25